=== PATIENT | female | born 1970 | race Hispanic/Latino ===

== ENCOUNTER 2020-03-06 06:54 | Outpatient (NON) | payer OTHER, SELFPAY ==
[2020-03-06 22:32] LABS: SARS-CoV-2 RNA PCR Negative
== END 2020-03-06 06:55 ==
LOC: ANHCOVIDDT 07:04
PROVIDERS: PCP Family Medicine; Visit Provider Physician Assistant Medical
DX: Z20.828 Contact with and (suspected) exposure to other viral communicable diseases (principal); R51.9 Headache, unspecified; R09.81 Nasal congestion
CPT/HCPCS: 87635; C9803; U0003

== ENCOUNTER 2020-08-23 18:15 | Emergency (ER) | payer OTHER, SELFPAY ==
--- NOTE | ~2020-08-23 | XR_ITS ---
XR chest 1V portable DATE: 08/23/2020 18:58 INDICATION: Productive cough, congestion TECHNIQUE: Portable upright AP view on 08/23/2020 at 1855 hours COMPARISON: 07/02/2012 two-view chest FINDINGS: Normal heart size. No hilar or mediastinal enlargement. No pulmonary infiltrate or consolid ation, pleural effusion or pulmonary vascular congestion or pneumothorax. Osteopenia. IMPRESSION: No active cardiopulmonary disease Reviewed, dictated and finalized at location A.
[2020-08-23 18:29] VITALS: BP 157/95; PULSE 102; RESP 20; TEMP 36.8; O2SAT 97
[2020-08-23 19:00] VITALS: O2SAT 98
--- NOTE | 2020-08-23 19:08 | ED.URI ---
HPI - URI/Sore Throat General Chief Complaint: Upper Respiratory Infection Stated Complaint: Congestion,sinus drainage,cough Time Seen by Provider: 08/23/20 18:30 Source: patient Mode of arrival: ambulatory Limitations: no limitations History of Present Illness HPI Narrative: Patient is a 50-year-old female who presents complaining of cough, sinus drainage, congestion and sore throat x3 to 4 days. Patient reports recently [place] Patient reports during trip she was on Augmentin and prednisone for a sinus infection which she completed all medications 08/18/2020. She reports increased sore throat and cough over the past 3 to 4 days. She denies fever. She denies chest pain or shortness of breath. Patient reports she has a history of immune compromise, Covid vaccine x2. Patient is concerned she has Covid because of travel and history of immune compromise, patient is requesting Covid testing.. MD elicited complaint: cough, sore throat and nasal congestion Related Data Home Medications Medication Instructions Recorded Confirmed hydroxychloroquine 200 mg tablet 200 mg PO BID 03/03/19 09/21/19 methotrexate sodium 2.5 mg tablet See Rx Instructions PO WEEKLY 03/03/19 09/21/19 tablet ondansetron HCl 4 mg tablet 4 mg PO Q8H PRN 03/03/19 09/21/19 folic acid 1 mg tablet 1 mg PO DAILY 06/01/19 09/21/19 Allergies Allergy/AdvReac Type Severity Reaction Status Date / Time ketorolac Allergy Unknown Unknown Verified 08/23/20 18:33 Review of Systems Review of Systems: Narrative: CONSTITUTIONAL: Denies fever, chills, or sweats. EYES: Denies visual changes, redness, or discharge. ENT: Reports congestion and sore throat CARDIOVASCULAR: Denies chest pain, palpitations, or edema. RESPIRATORY: Reports cough, denies dyspnea. GASTROINTESTINAL: Denies abdominal pain, nausea, vomiting, or diarrhea. GENITOURINARY: Denies dysuria or hematuria. SKIN: Denies rash or itching. MUSCULOSKELETAL: Denies back pain, joint pain, or myalgia. NEUROLOGIC: Denies headache, numbness, dizziness, or weakness. PSYCHIATRIC: Denies anxiety or depression. [facility]END[facility] S[facility] TO [facility] Past Medical History Medical History H/O Sjogren's disease per patient Hannah's thyroiditis Per patient Surgical History Surgical History H/O adenoidectomy History of orthopedic surgery Hx of cholecystectomy Hx of tonsillectomy Family History Family History Other Asthma Depression Grandparent Alcohol abuse Grandparent Thyroid disorder Social History Social History Smoking status: Never smoker Alcohol intake: current Alcohol use details: Occasional Substance use: never Living arrangements: with family Comments At the time of signature, I have reviewed and agree with nursing past medical, surgical, social, and family history unless otherwise noted. Please see nursing chart for further information. There is no relevant family history pertinent to the presenting complaint. Exam Narrative: Exam Narrative: GENERAL: Well-appearing, well-nourished, and in no acute distress. HEAD: Normocephalic, atraumatic. EYES: EOMI. No redness or drainage. Conjunctiva are normal. ENT: Mucous membranes pink and moist. Nares clear. Positive rhinorrhea. TMs normal bilaterally. Throat mild erythema and edema, no exudate. Uvula midline. NECK: AROM. Supple. No lymphadenopathy. CHEST: No respiratory distress. Mild expiratory wheeze. HEART: Regular rate and rhythm. EXTREMITIES: Normal range of motion. No edema. SKIN: Warm, dry, no rash. NEURO: No focal deficits. Alert and oriented x3. Gait steady. PSYCH: Normal affect. No signs of depression or anxiety. Course Vital Signs Vital signs: Vital Signs Temperature 36.8 C 08/23/20 18:29
[2020-08-23 20:07] VITALS: BP 137/83; PULSE 93; RESP 18; TEMP 37.2; O2SAT 97
[2020-08-24 19:38] LABS: SARS-CoV-2 RNA PCR Negative
== END 2020-08-23 20:10 | disposition home or self-care (01) ==
PROVIDERS: Emergency Provider Nurse Practitioner; PCP Family Medicine
DX: J06.9 Acute upper respiratory infection, unspecified (principal); J20.9 Acute bronchitis, unspecified; Z20.822 Contact with and (suspected) exposure to COVID-19; M35.00 Sjogren syndrome, unspecified; E06.3 Autoimmune thyroiditis
CPT/HCPCS: 71045; 99283; C9803; U0003; U0005

== ENCOUNTER 2021-01-31 09:06 | Outpatient (CLI) | payer OTHER, SELFPAY ==
--- NOTE | 2021-01-31 13:45 | WPDPFTINT ---
PFT Procedure Performed PFT Procedure Performed Spirometry with Pre/Post Bronchodilator Plethysmography (Lung Vol) Diffusing Cap (DLCO) Flow Vol Loop PFT Interpretation Lung volumes were measured with the body plethysmography method. The diminished expiratory reserve volume is due to obesity. The remaining lung volumes are unremarkable. Spirometry showed normal expiratory flow rates and a normal FEV1 to FVC ratio of 82%. Following administration of a bronchodilator there was no significant increase in expiratory flow rates. Lung diffusion capacity is within the normal range. The flow volume loop is unremarkable. Impression: Lung volumes, spirometry, and lung diffusion capacity all within the normal range.
== END 2021-01-31 09:07 | disposition home or self-care (01) ==
LOC: ANHPFT 09:08
PROVIDERS: PCP Family Medicine; Visit Provider Family Medicine
DX: R06.02 Shortness of breath (principal); R05.9 Cough, unspecified; M06.4 Inflammatory polyarthropathy
CPT/HCPCS: 94060; 94726; 94729

== ENCOUNTER 2021-06-28 19:28 | Emergency (ER) | payer OTHER, SELFPAY ==
[2021-06-28 19:32] VITALS: BP 151/91; PULSE 79; RESP 16; TEMP 36.3; O2SAT 99
--- NOTE | 2021-06-28 19:49 | ED.GENADULT ---
HPI - General Adult General Chief complaint: Extremity Problem,Nontraumatic Stated complaint: RED SPOT ON ARM Source: patient Mode of arrival: ambulatory Limitations: no limitations History of Present Illness HPI narrative: Patient presents for evaluation of swelling and redness to the right upper arm since Wednesday of this week. She indicates she had a Shingrix vaccine just prior to symptom onset. Over the past few days, redness has increased. She states the area is tender to palpation. No fever, chills, nausea, vomiting, drainage from the affected area. She is not diabetic. She does not smoke. She outlined the borders this morning and the redness has extended slightly outside the borders since that time. She has autoimmune disease for which she is under the care of rheumatology. She has tried charanjit without much improvement in her symptoms. She took tylenol for generalized body aches following administration of the vaccine. Related Data Home Medications Medication Instructions Recorded Confirmed hydroxychloroquine 200 mg tablet 200 mg PO BID 03/03/19 06/28/21 methotrexate sodium 2.5 mg tablet See Rx Instructions PO WEEKLY 03/03/19 06/28/21 tablet folic acid 1 mg tablet 1 mg PO DAILY 06/01/19 06/28/21 ondansetron HCl 8 mg tablet 8 mg PO Q12H PRN 01/03/21 06/28/21 lifitegrast [Xiidra] 1 drp EACH EYE BID 06/28/21 06/28/21 Allergies Allergy/AdvReac Type Severity Reaction Status Date / Time ketorolac Allergy Unknown Unknown Verified 06/28/21 19:31 Review of Systems Review of Systems: CONSTITUTIONAL: Denies fever, chills, or sweats. EYES: Denies visual changes, redness, or discharge. ENT: Denies rhinorrhea, congestion, sore throat, or otalgia. CARDIOVASCULAR: Denies chest pain, palpitations, or edema. RESPIRATORY: Denies cough or dyspnea. GASTROINTESTINAL: Denies abdominal pain, nausea, vomiting, or diarrhea. GENITOURINARY: Denies dysuria or hematuria. SKIN: Reports redness to right upper arm with associate swelling and pruritis MUSCULOSKELETAL: Reports pain in right upper arm. Denies back pain, joint pain NEUROLOGIC: Denies headache, numbness, dizziness, or weakness. PSYCHIATRIC: Denies anxiety or depression. [facility] Past Medical History Medical History Hannah's thyroiditis Per patient History of autoimmune disease [facility] (current) use of opiate analgesic Surgical History Surgical History H/O adenoidectomy History of orthopedic surgery Hx of cholecystectomy Hx of tonsillectomy Family History Family History Other Asthma Depression Grandparent Alcohol abuse Grandparent Thyroid disorder Social History Social History (Updated 06/28/21 @ 19:53 by CHANDLER Perez, ) Smoking status: Never smoker Alcohol intake: current Alcohol use details: Occasional Substance use: never Living arrangements: with family Gender identity (if verbalized by the patient): Female Spiritual care concerns: No Exam Narrative: GENERAL: Well-appearing, well-nourished, and in no acute distress. HEAD: Normocephalic, atraumatic. EYES: PERRLA and EOMI. ENT: Nares clear, no rhinorrhea or epistaxis. Mucous membranes moist. Oropharynx without tonsillar hypertrophy exudate or other lesions. Bilateral TMs pearly stack nonbulging NECK: Supple. No adenopathy or masses. No carotid bruits or JVD CHEST: Clear to auscultation. No respiratory distress. No wheezes rales or rhonchi HEART: Regular rate and rhythm. No murmur heard. Normal peripheral pulses. ABDOMEN: Soft, nontender, nondistended, normal active bowel sounds. EXTREMITIES: Normal range of motion. No edema. SKIN:Approximately 5x6.5cm area of erythema to right upper arm in annular pattern which is slightly raised and tender. There is associated warmth NEURO: No focal
== END 2021-06-28 19:43 | disposition home or self-care (01) ==
PROVIDERS: Emergency Provider Nurse Practitioner; PCP Family Medicine
DX: T80.90XA Unspecified complication following infusion and therapeutic injection, initial encounter (principal); E06.3 Autoimmune thyroiditis
CPT/HCPCS: 99213; G0463

== ENCOUNTER 2022-01-24 18:29 | Emergency (ER) | payer OTHER, SELFPAY ==
[2022-01-24 18:36] VITALS: BP 121/69; PULSE 86; RESP 20; TEMP 36.2; O2SAT 98
--- NOTE | 2022-01-24 18:54 | ED.GENADULT ---
HPI - General Adult General Chief complaint: Extremity Problem,Nontraumatic Stated complaint: Body Aches Time Seen by Provider: 01/24/22 18:43 Source: patient Mode of arrival: ambulatory Limitations: no limitations History of Present Illness HPI narrative: Patient presents today complaining of joint aches, primarily in the right shoulder, right elbow, and left knee. 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 States her joints have been hurting for, ?a while, but worse since last night. 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 Symptoms increase with movement. She has been taking Advil and Tylenol with minimal relief. Denies fever or recent illness. Related Data Home Medications Medication Instructions Recorded Confirmed hydroxychloroquine 200 mg tablet 200 mg PO BID 03/03/19 01/24/22 (Plaquenil) methotrexate sodium 2.5 mg tablet See Rx Instructions PO WEEKLY 03/03/19 01/24/22 folic acid 1 mg tablet 1 mg PO DAILY 06/01/19 01/24/22 lifitegrast 5 % eye drops in a 1 drp EACH EYE BID 06/28/21 01/24/22 dropperette (Xiidra) Allergies Allergy/AdvReac Type Severity Reaction Status Date / Time ketorolac AdvReac Severe Swelling Verified 01/24/22 18:52 of Lip/Tongue/Throat Review of Systems Review of Systems: CONSTITUTIONAL: Denies body aches, fever, chills, or sweats. EYES: Denies visual changes, redness, or discharge. ENT: Denies rhinorrhea, congestion, sore throat, or otalgia. CARDIOVASCULAR: Denies chest pain, palpitations, or edema. RESPIRATORY: Denies cough or dyspnea. GASTROINTESTINAL: Denies abdominal pain, nausea, vomiting, or diarrhea. GENITOURINARY: Denies dysuria or hematuria. SKIN: Denies rash, itching, or wounds. MUSCULOSKELETAL: Denies back pain, or myalgia.+ joint pains. Denies joint swelling, redness, or warmth NEUROLOGIC: Denies headache, numbness, tingling, or weakness. PSYCH: Denies depression or anxiety. [facility] Past Medical History Medical History Hannah's thyroiditis Per patient History of autoimmune disease [facility] (current) use of opiate analgesic Surgical History Surgical History H/O adenoidectomy History of orthopedic surgery Hx of cholecystectomy Hx of tonsillectomy Family History Family History Other Asthma Depression Grandparent Alcohol abuse Grandparent Thyroid disorder Other Heart disease Social History Social History Smoking status: Never smoker Alcohol intake: current Alcohol use details: Occasional Substance use: never Substance use type: does not use Additional occupation/education comments: stay at home Gender identity (if verbalized by the patient): Female Sexual Orientation (if Verbalized by the Patient): Straight or Heterosexual Spiritual care concerns: No Comments At time of signature, I have reviewed and agree with nursing past medical, surgical, social and family history unless otherwise noted. Please see nursing chart for further information. There is no relevant family history pertinent to the presenting complaint Exam Narrative: GENERAL: Well-appearing, well-nourished, and in [id number] pain distress, especially with movement. HEAD: Normocephalic, atraumatic. EYES: EOMI. No redness or drainage. Conjunctivae normal. ENT: Mucous membranes pink and moist. NECK: Normal AROM. CHEST: No respiratory distress. EXTREMITIES: Joint tenderness over the affected joints. No obvious edema, erythema. Pain with range of motion. SKIN: Warm, dry, no rash. Capillary refill normal. Normal skin turgor. NEURO: No focal deficits. Alert and oriented x3.
== END 2022-01-24 19:01 | disposition home or self-care (01) ==
PROVIDERS: Emergency Provider Nurse Practitioner; PCP Family Medicine
DX: M25.50 Pain in unspecified joint (principal); E06.3 Autoimmune thyroiditis; M13.80 Other specified arthritis, unspecified site
CPT/HCPCS: 99213; G0463

== ENCOUNTER 2022-07-14 21:43 | Outpatient (NON) | payer OTHER, SELFPAY | END 2022-07-14 21:44 | disposition home or self-care (01) | LOC: ANHLAB 21:44 | PROVIDERS: PCP Family Medicine; Visit Provider Nurse Practitioner | DX: J02.9 Acute pharyngitis, unspecified (principal) | CPT/HCPCS: 87070 ==

== ENCOUNTER 2022-07-16 08:37 | Outpatient (CLI) | payer OTHER, SELFPAY | END 2022-07-16 08:38 | disposition home or self-care (01) | LOC: ANHGOSHLAB 08:39 | PROVIDERS: PCP Family Medicine; Visit Provider Nurse Practitioner | DX: J02.9 Acute pharyngitis, unspecified (principal) | CPT/HCPCS: 87070 ==

== ENCOUNTER → 2022-10-23 08:50 | Outpatient (CLI) | payer OTHER, SELFPAY ==
--- NOTE | ~2022-10-23 | MR_ITS ---
EXAMINATION: MR brain/brain stem wo/w con DATE: 10/23/2022 09:33 INDICATION: Progressive ataxia and falls. TECHNIQUE: Magnetic resonance imaging (MRI) of the brain and brainstem was performed without and with 20 mL MultiHance intravenous contrast. COMPARISON: Neck CT 12/12/2015 FINDINGS: There is a chronic 2.8 x 1.4 x 1.1 cm mass containing fat in right parotid gland, likely be nign. There is no intracranial hemorrhage, acute infarction, or abnormal intracranial mass lesion. Th e ventricles are normal in size. The paranasal sinuses are clear. The orbits are normal. The mastoid air cells are normal. IMPRESSION: 1. Normal brain. Reviewed, dictated and finalized at location B. IMPRESSION: 1. Normal brain.
== END ==
PROVIDERS: PCP Family Medicine; Visit Provider Family Medicine
DX: R27.0 Ataxia, unspecified (principal)
CPT/HCPCS: 70553; A9577

== ENCOUNTER 2023-04-16 19:17 | Emergency (ER) | payer OTHER, SELFPAY ==
--- NOTE | ~2023-04-16 | XR_ITS ---
EXAMINATION: XR foot RT min 3V DATE: 04/16/2023 19:45 INDICATION: Right foot injury and pain. TECHNIQUE: 4 views of right foot were obtained. COMPARISON: None. FINDINGS: Bone alignment is normal. No fracture. There is mild osteoarthritis of first metatarsophala ngeal joint and many of the interphalangeal joints. There is an enthesophyte at plantar aspect of linn caneal tuberosity. IMPRESSION: 1. Mild polyarticular osteoarthritis. Reviewed, dictated and finalized at location E. GRINDER
[2023-04-16 19:28] VITALS: BP 134/62; PULSE 70; RESP 16; TEMP 36.4; O2SAT 100
--- NOTE | 2023-04-16 19:35 | ED.LOWEXIN ---
HPI - Extremity Injury (Lower) General Chief Complaint: Extremity Injury, Lower Stated Complaint: Injured Foot Time Seen by Provider: 04/16/23 19:28 Source: patient and RN notes reviewed Mode of arrival: ambulatory Limitations: no limitations History of Present Illness HPI Narrative: Patient presents today complaining of pain to the right foot. States she may have stepped on her foot incorrectly 2 days ago causing an injury. States pain is worsened over the past 1-1.5 hours. She reports some tingling to her toes. Currently rates her pain 4/10 at rest, which increases with weight-bearing. She has been taking Celebrex without much relief. Related Data Home Medications Medication Instructions Recorded Confirmed hydroxychloroquine 200 mg tablet 200 mg PO BID 03/03/19 04/16/23 (Plaquenil) lifitegrast 5 % eye drops in a 1 drp EACH EYE BID 06/28/21 04/16/23 dropperette (Xiidra) leflunomide 20 mg tablet 20 mg PO DAILY 10/14/22 04/16/23 Allergies Allergy/AdvReac Type Severity Reaction Status Date / Time ketorolac AdvReac Severe Swelling Verified 04/16/23 19:24 of Lip/Tongue/Throat Review of Systems Review of Systems: CONSTITUTIONAL: Denies body aches, fever, chills, or sweats. EYES: Denies visual changes, redness, or discharge. ENT: Denies rhinorrhea, congestion, sore throat, or otalgia. CARDIOVASCULAR: Denies chest pain, palpitations, or edema. RESPIRATORY: Denies cough or dyspnea. GASTROINTESTINAL: Denies abdominal pain, nausea, vomiting, or diarrhea. GENITOURINARY: Denies dysuria or hematuria. SKIN: Denies rash, itching, or wounds. MUSCULOSKELETAL: Denies back pain, or myalgia. +Right foot pain NEUROLOGIC: Denies headache, numbness, or weakness.+ right foot tingling PSYCH: Denies depression or anxiety. [facility] Past Medical History Medical History Hannah's thyroiditis Per patient History of autoimmune disease [employer] (current) use of opiate analgesic Surgical History Surgical History H/O adenoidectomy History of orthopedic surgery Hx of cholecystectomy Hx of tonsillectomy Family History Family History Other Asthma Depression Grandparent Alcohol abuse Grandparent Thyroid disorder Other Heart disease Social History Social History Smoking status: Never smoker Alcohol intake: never Substance use: never Substance use type: does not use Do You Feel Safe in your Home?: Yes Lack of Transportation: No Lack of Food: Never True Current Housing: I Have Housing Concerned About Future Housing: No Difficulty Paying Gas/Electric Bills: No Difficulty Paying for Meds: No Currently Unemployed: No Education: Master's Degree or Higher Difficulty w/ Childcare or Family Care: No Living arrangements: with family Occupation/Education: occupation Additional occupation/education comments: stay at home Gender identity (if verbalized by the patient): Female Sexual Orientation (if Verbalized by the Patient): Straight or Heterosexual Spiritual care concerns: No Comments At time of signature, I have reviewed and agree with nursing past medical, surgical, social and family history unless otherwise noted. Please see nursing chart for further information. There is no relevant family history pertinent to the presenting complaint Exam Narrative: GENERAL: Well-appearing, well-nourished, and in no acute distress. HEAD: Normocephalic, atraumatic. EYES: EOMI. No redness or drainage. Conjunctivae normal. ENT: Mucous membranes pink and moist. NECK: Normal AROM. CHEST: No respiratory distress. EXTREMITIES: Right foot: Tenderness to the midfoot along the plantar aspect, less so along the dorsum. Patient also report
== END 2023-04-16 20:01 | disposition home or self-care (01) ==
PROVIDERS: Emergency Provider Nurse Practitioner; PCP Family Medicine
DX: S96.911A Strain of unspecified muscle and tendon at ankle and foot level, right foot, initial encounter (principal); X58.XXXA Exposure to other specified factors, initial encounter; E06.3 Autoimmune thyroiditis; M35.9 Systemic involvement of connective tissue, unspecified
CPT/HCPCS: 73630; 99213; G0463

== ENCOUNTER 2023-06-05 11:34 | Emergency (ER) | payer OTHER, SELFPAY ==
[2023-06-05 11:54] VITALS: BP 113/86; PULSE 76; RESP 16; TEMP 36.3; O2SAT 100
[2023-06-05 11:55] VITALS: BP 113/86; PULSE 76; RESP 16; TEMP 36.3; O2SAT 100
--- NOTE | 2023-06-05 12:11 | ED.URI ---
HPI - URI/Sore Throat General Chief Complaint: Upper Respiratory Infection Stated Complaint: Respiratory issues Time Seen by Provider: 06/05/23 12:11 Source: patient Mode of arrival: ambulatory Limitations: no limitations History of Present Illness HPI Narrative: 52 yo F presents with c/o cough, sinus congestion, PND, chest congestion for at least 2 wks. Taking OTC cough medications without relief. Reports some tightness and SOB with coughing fits. AFebrile. All systems reviewed and negative except as noted above. Related Data Home Medications Medication Instructions Recorded Confirmed hydroxychloroquine 200 mg tablet 200 mg PO BID 03/03/19 06/05/23 (Plaquenil) lifitegrast 5 % eye drops in a 1 drp EACH EYE BID 06/28/21 06/05/23 dropperette (Xiidra) leflunomide 20 mg tablet 20 mg PO DAILY 10/14/22 06/05/23 Allergies Allergy/AdvReac Type Severity Reaction Status Date / Time ketorolac AdvReac Severe Swelling Verified 06/05/23 11:53 of Lip/Tongue/Throat Review of Systems Review of Systems: CONSTITUTIONAL: Denies fever, chills, or sweats. Reports fatigue. EYES: Denies visual changes, redness, or discharge. ENT: Reports rhinorrhea, congestion, sore throat. Denies otalgia. CARDIOVASCULAR: Denies chest pain, palpitations, or edema. RESPIRATORY: Reports cough and dyspnea with coughing. GASTROINTESTINAL: Denies abdominal pain, nausea, vomiting, or diarrhea. GENITOURINARY: Denies dysuria or hematuria. SKIN: Denies rash or itching. MUSCULOSKELETAL: Denies back pain, joint pain, or myalgia. NEUROLOGIC: Denies headache, numbness, or weakness. PSYCHIATRIC: Denies anxiety or depression. All other systems reviewed are negative, except as documented in HPI. [facility] Past Medical History Medical History Hannah's thyroiditis Per patient History of autoimmune disease senior living (current) use of opiate analgesic Surgical History Surgical History H/O adenoidectomy History of orthopedic surgery Hx of cholecystectomy Hx of tonsillectomy Family History Family History Other Asthma Depression Grandparent Alcohol abuse Grandparent Thyroid disorder Other Heart disease Social History Social History Smoking status: Never smoker Alcohol intake: never Substance use: never Substance use type: does not use Do You Feel Safe in your Home?: Yes Lack of Transportation: No Lack of Food: Never True Current Housing: I Have Housing Concerned About Future Housing: No Difficulty Paying Gas/Electric Bills: No Difficulty Paying for Meds: No Currently Unemployed: No Education: Master's Degree or Higher Difficulty w/ Childcare or Family Care: No Living arrangements: with family Occupation/Education: occupation Additional occupation/education comments: stay at home Gender identity (if verbalized by the patient): Female Sexual Orientation (if Verbalized by the Patient): Straight or Heterosexual Spiritual care concerns: No Comments At time of signature, agree with nursing past medical, surgical, social and family history. There is no relevant family history pertinent to the presenting complaint. Exam Narrative: GENERAL: This is a well-nourished, well-developed patient, in no apparent distress. HEAD: normocephalic, atraumatic. EYES: PERRL. Sclera clear/white. Vision is grossly intact. EARS: External ears normal, auditory canals clear and without drainage, TMs normal without perforation. Hearing grossly intact. NOSE: External nose normal with no obvious nasal discharge, nares without redness, no rhinorrhea. THROAT: Mucous membranes moist, posterior pharynx clear. NECK: Neck supple, non-tender without lymphadenopathy, masses or thyromeg
== END 2023-06-05 12:19 | disposition home or self-care (01) ==
PROVIDERS: Emergency Provider Nurse Practitioner Family; PCP Family Medicine
DX: J06.9 Acute upper respiratory infection, unspecified (principal); Z79.899 Other long term (current) drug therapy
CPT/HCPCS: 99213; G0463

== ENCOUNTER 2023-06-25 19:17 | Emergency (ER) | payer OTHER, SELFPAY ==
[2023-06-25 19:25] VITALS: BP 103/58; PULSE 70; RESP 18; TEMP 36.2; O2SAT 99
[2023-06-25 19:27] VITALS: BP 103/58; PULSE 70; RESP 18; TEMP 36.2; O2SAT 99
--- NOTE | 2023-06-25 20:32 | ED.URI ---
HPI - URI/Sore Throat General Chief Complaint: Upper Respiratory Infection Stated Complaint: Trouble Breathing Time Seen by Provider: 06/25/23 19:31 Source: patient and RN notes reviewed Mode of arrival: ambulatory Limitations: no limitations History of Present Illness HPI Narrative: Patient presents today stating, ?I feel like I can not take a deep breath. ? Symptoms began today. She denies cough, shortness of breath, chest pain, wheezing, fever. She was seen at [facility] on 06/06/2023, diagnosed with a URI and given prescriptions for doxycycline, prednisone, and an albuterol inhaler. She has not tried the albuterol inhaler today for her symptoms. She does take Singulair and Zyrtec daily for her allergies. States she wants to make sure, ?there is no fluid in my lungs. ? Related Data Home Medications Medication Instructions Recorded Confirmed hydroxychloroquine 200 mg tablet 200 mg PO BID 03/03/19 06/25/23 (Plaquenil) lifitegrast 5 % eye drops in a 1 drp EACH EYE BID 06/28/21 06/25/23 dropperette (Xiidra) leflunomide 20 mg tablet 20 mg PO DAILY 10/14/22 06/25/23 albuterol sulfate 90 mcg/actuation 2 puff inhalation PRN PRN 06/25/23 06/25/23 aerosol inhaler Shortness Of Breath Or Wheezing celecoxib 200 mg capsule 200 mg PO DAILY 06/25/23 06/25/23 montelukast 10 mg tablet 10 mg PO HS 06/25/23 06/25/23 Allergies Allergy/AdvReac Type Severity Reaction Status Date / Time ketorolac AdvReac Severe Swelling Verified 06/25/23 19:24 of Lip/Tongue/Throat Review of Systems Review of Systems: CONSTITUTIONAL: Denies body aches, fever, chills, or sweats. EYES: Denies visual changes, redness, or discharge. ENT: Denies rhinorrhea, congestion, sore throat, or otalgia. CARDIOVASCULAR: Denies chest pain, palpitations, or edema. RESPIRATORY: Denies cough or dyspnea. +difficulty taking deep breath GASTROINTESTINAL: Denies abdominal pain, nausea, vomiting, or diarrhea. GENITOURINARY: Denies dysuria or hematuria. SKIN: Denies rash, itching, or wounds. MUSCULOSKELETAL: Denies back pain, joint pain, or myalgia. NEUROLOGIC: Denies headache, numbness, tingling, or weakness. PSYCH: Denies depression or anxiety. 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 Surgical History Surgical History H/O adenoidectomy History of orthopedic surgery Hx of cholecystectomy Hx of tonsillectomy Family History Family History Other Asthma Depression Grandparent Alcohol abuse Grandparent Thyroid disorder Other Heart disease Social History Social History Smoking status: Never smoker Alcohol intake: never Substance use: never Substance use type: does not use Do You Feel Safe in your Home?: Yes Lack of Transportation: No Lack of Food: Never True Current Housing: I Have Housing Concerned About Future Housing: No Difficulty Paying Gas/Electric Bills: No Difficulty Paying for Meds: No Currently Unemployed: No Education: Master's Degree or Higher Difficulty w/ Childcare or Family Care: No Living arrangements: with family Occupation/Education: occupation Additional occupation/education comments: stay at home Gender identity (if verbalized by the patient): Female Sexual Orientation (if Verbalized by the Patient): Straight or Heterosexual Spiritual care concerns: No Comments At time of signature, I have reviewed and agree with nursing past medical, surgical, social and family history unless otherwise noted. Please see nursing chart for further information. There is no relevant family history pertinent to the presenting complaint Ex
== END 2023-06-25 19:46 | disposition home or self-care (01) ==
PROVIDERS: Emergency Provider Nurse Practitioner; PCP Family Medicine
DX: J30.2 Other seasonal allergic rhinitis (principal); E06.3 Autoimmune thyroiditis
CPT/HCPCS: 99213; G0463

== ENCOUNTER 2023-10-01 13:48 | Emergency (ER) | payer OTHER, SELFPAY ==
[2023-10-01 14:06] VITALS: BP 128/85; PULSE 70; RESP 16; TEMP 36.8; O2SAT 99
--- NOTE | 2023-10-01 14:11 | ED.URI ---
HPI - URI/Sore Throat General Chief Complaint: Upper Respiratory Infection Stated Complaint: Shortness Of Breath/Chest Tightness Source: patient Mode of arrival: ambulatory Limitations: no limitations History of Present Illness HPI Narrative: 53 y/o female presented for c/o 'chest tightness' onset 99, and shortness of breath when walking up her stairs today. Endorses the chest tightness is a dull ache to the center of the sternum, worsens with deep breaths. Denies cough, palpitations, dizziness, nausea, vomiting, fever or lethargy. Has not taken anything for symptoms. Related Data Home Medications Medication Instructions Recorded Confirmed hydroxychloroquine 200 mg tablet 200 mg PO BID 03/03/19 10/01/23 (Plaquenil) lifitegrast 5 % eye drops in a 1 drp EACH EYE BID 06/28/21 10/01/23 dropperette (Xiidra) leflunomide 20 mg tablet 20 mg PO DAILY 10/14/22 10/01/23 celecoxib 200 mg capsule 200 mg PO DAILY 06/25/23 10/01/23 montelukast 10 mg tablet 10 mg PO HS 06/25/23 10/01/23 Allergies Allergy/AdvReac Type Severity Reaction Status Date / Time ketorolac AdvReac Severe Swelling Verified 10/01/23 14:13 of Lip/Tongue/Throat Review of Systems Review of Systems: CONSTITUTIONAL: Denies body aches, fever, chills, or sweats. EYES: Denies visual changes, redness, or discharge. ENT: Denies rhinorrhea, congestion, sore throat, or otalgia. CARDIOVASCULAR: reports mid chest pain, Denies palpitations, or edema. RESPIRATORY: Denies cough or dyspnea. GASTROINTESTINAL: Denies abdominal pain, nausea, vomiting, or diarrhea. GENITOURINARY: Denies dysuria or hematuria. SKIN: Denies rash, itching, or wounds. MUSCULOSKELETAL: Denies back pain, joint pain, or myalgia. NEUROLOGIC: Denies headache, numbness, tingling, or weakness. PSYCH: Denies anxiety. 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 Surgical History Surgical History H/O adenoidectomy History of orthopedic surgery Hx of cholecystectomy Hx of tonsillectomy Family History Family History Other Asthma Depression Grandparent Alcohol abuse Grandparent Thyroid disorder Other Heart disease Social History Social History Smoking status: Never smoker Alcohol intake: never Substance use: never Substance use type: does not use Do You Feel Safe in your Home?: Yes Lack of Transportation: No Lack of Food: Never True Current Housing: I Have Housing Concerned About Future Housing: No Difficulty Paying Gas/Electric Bills: No Difficulty Paying for Meds: No Currently Unemployed: No Education: Master's Degree or Higher Difficulty w/ Childcare or Family Care: No Living arrangements: with family Occupation/Education: occupation Additional occupation/education comments: stay at home Gender identity (if verbalized by the patient): Female Sexual Orientation (if Verbalized by the Patient): Straight or Heterosexual Spiritual care concerns: No Comments At time of signature, I have reviewed and agree with nursing past medical, surgical, social and family history unless otherwise noted. Please see nursing chart for further information. There is no relevant family history pertinent to the presenting complaint Exam Narrative: GENERAL: Well-appearing, and in no acute distress. EYES: EOMI. No redness or drainage. Conjunctivae normal. ENT: Mucous membranes pink and moist. No rhinorrhea. TMs normal bilaterally. Throat normal. Uvula midline. NECK: Normal AROM. Supple. No lymphadenopathy. CHEST: No respiratory distress
--- NOTE | 2023-10-01 14:30 | ECG_ITS ---
Test Date: 2023-10-01 14:03:59 Measurements Intervals [place] Rate: 63 P: 41 KS: 189 QRS: 19 QRSD: 101 T: 16 QT: 394 QTc: 404 Interpretive Statements SINUS RHYTHM NORMAL ECG No previous ECG available for comparison Electronically Signed On 10-01-2023 15:21:26 CDT by Max Ching D.O.
== END 2023-10-01 14:25 | disposition home or self-care (01) ==
PROVIDERS: Emergency Provider Nurse Practitioner Family; PCP Family Medicine
DX: R07.1 Chest pain on breathing (principal); E06.3 Autoimmune thyroiditis; M35.9 Systemic involvement of connective tissue, unspecified
CPT/HCPCS: 93005; 99213; G0463

== ENCOUNTER 2024-03-25 08:54 | Emergency (ER) | payer OTHER, SELFPAY ==
--- NOTE | 2024-03-25 09:00 | ED.URI ---
HPI - URI/Sore Throat General Chief Complaint: Upper Respiratory Infection Stated Complaint: sinus infection / RT Ear Pain Time Seen by Provider: 03/25/24 09:02 Source: patient Mode of arrival: ambulatory Limitations: no limitations History of Present Illness HPI Narrative: Monica is a 53-year-old female patient presenting to the clinic today with complaints of possible sinus infection/ear infection. She reports symptoms have been going on for 1.5 weeks. She is blowing out yellow nasal drainage with tinge of blood. Has sinus pressure. Also reporting right ear pain that started over the last 1-2 days. No known fevers, chills, body aches. Denies any chest pain or shortness of breath. MD elicited complaint: rhinorrhea, nasal congestion, sinus pain and other (Ear pain) Related Data Home Medications ?Medication ?Instructions ?Recorded ?Confirmed ?Last Taken ?Type hydroxychloroquine 200 mg tablet 200 mg PO BID 03/03/19 02/04/24 Unknown History (Plaquenil) lifitegrast 5 % eye drops in a 1 drp EACH EYE BID 06/28/21 02/04/24 Unknown History dropperette (Xiidra) leflunomide 20 mg tablet 20 mg PO DAILY 10/14/22 02/04/24 Unknown History montelukast 10 mg tablet 10 mg PO HS 06/25/23 02/04/24 Unknown History Allergies Allergy/AdvReac Type Severity Reaction Status Date / Time ketorolac Allergy Severe Swelling Verified 03/25/24 09:04 of Lip/Tongue/Throat Review of Systems Review of Systems: Pertinent positives per HPI. Patient denies any fever, chills, rash, visual changes, dizziness, cough, shortness of breath, chest pain, palpitations, nausea, vomiting, diarrhea, constipation, abdominal pain, or any urinary issues. [facility] Past Medical History Medical History History of autoimmune disease Hannah's thyroiditis Per patient [facility] (current) use of opiate analgesic Surgical History Surgical History History of orthopedic surgery Hx of cholecystectomy Hx of tonsillectomy H/O adenoidectomy Family History Family History Other Asthma Depression Grandparent Alcohol abuse Grandparent Thyroid disorder Other Heart disease Social History Social History Smoking status: Never smoker Alcohol intake: never Substance use: never Substance use type: does not use Do You Feel Safe in your Home?: Yes Lack of Transportation: No Lack of Food: Never True Current Housing: I Have Housing Concerned About Future Housing: No Difficulty Paying Gas/Electric Bills: No Difficulty Paying for Meds: No Currently Unemployed: No Education: Master's Degree or Higher Difficulty w/ Childcare or Family Care: No Living arrangements: with family Occupation/Education: occupation Additional occupation/education comments: stay at home Gender identity (if verbalized by the patient): Female Sexual Orientation (if Verbalized by the Patient): Straight or Heterosexual Spiritual care concerns: No Comments At the time of my signature, I reviewed and agree with the nursing past medical, surgical, social, and family history. There is no relevant family history pertinent to the patient complaint. Exam Narrative: General: Well-developed, morbidly obese, in no apparent distress Head: Normocephalic, atraumatic Eyes: Pupils equally round and reactive to light bilaterally, EOM intact, sclera and conjunctive clear, no discharge, lids normal Ears: Left TMs intact and red, right TM intact, bulging, red, ear canals clear, no drainage, grossly hearing normal. Nose: Nares patent, yellow nasal discharge, moderate inflammation, maxillary sinus tenderness. Mouth: Oral pharynx without lesions or masses, good dentition, MMM. Neck: Supple, trachea midline, no enlargement of anterior or posterior cervical nodes, no thyroid masses or goiter palpable. Cardio: Regular rate and rhythm, s1 and s2 normal, no murmur appreciated. Resp: Clear to auscultation bilaterally, no rhonchi, rales, wheezing or rubs Course Course Emergency Course: Portions of this record may have been created with voice recognition software. Level of Care: Express Care Visit Vital Signs Vital signs: Vital signs reviewed MDM - URI/Sore Throat MDM Narrative Medical decision making narrative: At the time of visit patient is resting comfortably on the exam table. Patient appears to be nontoxic. Plan: I suspect patient has right otitis media and acute bacterial rhinosinusitis. Prescription for Augmentin and prednisone was sent to the pharmacy. Supportive measures were discussed with the patient and they voiced understanding discharge instructions and agrees to treatment plan. Return precautions reviewed Differential Diagnosis Differential diagnosis: Likely upper respiratory infection, otitis media, sinusitis, viral infection, bronchitis, influenza, pharyngitis and other (Covid) Discharge Plan Discharge Clinical Impression: Acute bacterial rhinosinusitis, Acute right otitis media Patient Disposition: Home, Self-Care Condition: Stable Instructions: Antibiotic Form, Ear Infection (ED), Rhinosinusitis (ED) Additional Instructions: Take prescription medications only as prescribed-prednisone and Augmentin Increase fluids and stay well hydrated Tylenol/motrin for pain/fever Flonase and OTC antihistamines as directed Vicks vapor rub to open sinuses Sinus rinses for congestion Cepacol spray, cough drops, throat lozenges, warm tea with honey/lemon, gargle salt water to soothe throat BRAT diet for diarrhea Clear liquids x 24 hours then advance as tolerated for nausea/vomiting Go to the ED if you develop a worsening in your condition- high fever not controlled by Tylenol or Motrin, dehydration, weakness, lethargy, shortness of breath, or chest pain. Follow up with your PCP in 3-5 days if symptoms persist. Patient Language: Palauan Prescriptions: New prednisone 20 mg tablet 40 mg PO DAILY 5 Days Qty: 10 0RF amoxicillin-pot clavulanate 875-125 mg tablet 1 tablet PO Q12H 10 Days Qty: 20 0RF No Action montelukast 10 mg tablet 10 mg PO HS Xiidra 5 % dropperette 1 drp EACH EYE BID clonidine HCl 0.2 mg tablet 0.2 mg PO Q12H Qty: 180 3RF ondansetron HCl 4 mg tablet 4 mg PO Q6H PRN (Reason: nausea and vomiting) Qty: 30 0RF hydroxychloroquine [Plaquenil] 200 mg tablet 200 mg PO BID leflunomide 20 mg tablet 20 mg PO DAILY levothyroxine [Synthroid] 175 mcg tablet 175 mcg PO DAILY Qty: 90 3RF trazodone 50 mg tablet 50 mg PO DAILY PRN (Reason: insomnia) Qty: 90 3RF celecoxib 200 mg capsule 200 mg PO DAILY Qty: 90 1RF Follow-up/Referrals: Kevin Bowles MD [Primary Care Provider] - Time of Disposition: 09:12 Quality NIHSS Nursing Documentation ED NIHSS nursing documentation: reviewed/agree
[2024-03-25 09:04] VITALS: BP 123/62; PULSE 80; RESP 18; TEMP 36.9; O2SAT 100
--- OUTSIDE RECORDS SUMMARY | 2024-04-01 11:13 | XMS_ITS | Encounter Summary ---
Author Organization [facility] Address [address] [place] [address]. [place], [place] [id number] [place] [id number] Care Team Providers Care Portrait Artist Name Role Phone Kevin Bowles MD Primary Care Provider [phone] Encounter Details Date Type Department Care Team (Latest Contact Info) Description 01/07/2018 Abstract [facility] , Generic ConversionMD Social History Tobacco Use Types Packs/Day Years Used Date Smoking Tobacco: Never Smokeless Tobacco: Never Alcohol Use Standard Drinks/Week Comments No 0 (1 standard drink = 0.6 oz pur e alcohol) AUDIT-C Answer Date Recorded Frequency of Alcohol Consumption Never 01/11/2018 Average Number of Drinks Not on file 018 Frequency of Binge Drinking Not on file 12/21 Comments No Sex and Gender Information Value Date Recorded Sex Assigned at Not on file Legal Sex Female 9:36 PM CDT Gender Identity Not on file Sexual Orientation Not on file documented as of this encounter Progress Notes * Generic Conversion MD Lian - 01/07/2018 2:14 PM CDT Message Recorded as Task Date: 12/23/2017 10:47 AM, Created By: Ayah Kat Task Name: Informational Assigned To: [facility] Nurse Team Regarding Patient: Monica Buckner, Status: In Progress Comment: Ayah Kat - 23 Dec 2017 10:47 AM TASK CREATED sent information over to Marilee at [facility] to schedule thyroid biopsy no prior auth needed Ayah Kat - 23 Dec 2017 10:47 AM TASK IN PROGRESS Kori Matthews - 27 Dec 2017 10:35 AM TASK EDITED [facility] said they need the actual film for them to look at Brandee Katn 27 Dec 2017 10:58 AM TASK EDITED tried to call pt no answer Brandee Katn 27 Dec 2017 4:12 PM TASK EDITED called pt she stated she would get copy of cd and take it to [facility] radiology Brandee Katn 31 Dec 2017 11:35 AM TASK EDITED called pt again and left detailed message when spoke last time couldn't hear pt very well just making sure she knew she needs to take the thyroid US disc to [facility] radiology dept for them to view before can schedule the biopsy if any questions call the office back Brandee Katn 07 Jan 2018 2:14 PM TASK EDITED pt scheduled for jan 11 Signatures Electronically signed by : Ayah Kat, L.P.N.; Jan 07 2018 2:14PM 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
--- OUTSIDE RECORDS SUMMARY | 2024-04-01 11:13 | XMS_ITS | Encounter Summary ---
Author Organization [facility] Address [address] [place] [address]. [place], [place] [id number] [place] [id number] Care Team Providers Care Academic Program Specialist Name Role Phone Kevin Bowles MD Primary Care Provider [phone]- [phone] Reason for Referral * Imaging (Routine) - Closed Specialty Diagnoses / Procedures Referred By Contac t Referred To Contact RADIOLOGY Diagnoses Nontoxic goiter, unspecified Procedures US THYROID Larry Ann PA [address] [place] [address] [address] [place] [id number] Phone: tel: fax: Referral ID Status Reason Start Date Expiration Date Visits Re quested Visits Authorized [id number] Closed 04/29/2022 05/30/2023 1 1 RNET SYSTEMS ADMINISTRATOR Reason for Visit * Imaging (Routine) - Closed Specialty Diagnoses / Procedures Referred By Contac t Referred To Contact RADIOLOGY Diagnoses Nontoxic goiter, unspecified Procedures US THYROID Larry Ann PA [address] [place] [address] [address] [place] [address] Phone: tel: fax: Referral ID Status Reason Start Date Expiration Date Visits Re quested Visits Authorized [id number] Closed 04/29/2022 05/30/2023 1 1 Encounter Details Date Type Department Care Team (Late st Contact Info) Description 05/28/2022 10:14 AM INTERNET SYSTEMS ADMINISTRATOR - 05/28/2022 11:59 PM INTERNET SYSTEMS ADMINISTRATOR Hospital Encounter [facility] [address] Larry Ann PA [address] [facility] [address] [place] [address] Discharge Disposition: Home or Self Care (Routine Discharge) Social History Tobacco Use Types Packs/Day Years [...] on file Sexual Orientation Not on file COVID-19 Exposure Response Date Recorded In the last 10 days, have yo u been in contact with someone who was confirmed or suspected to have Coronavirus/COVID-19? No / Unsure 05/28/2022 10:13 AM INTERNET SYSTEMS ADMINISTRATOR documented as of this encounter Medications at Time of Discharge acetaminophen (TYLENOL) 500 MG tablet Take 1 tablet by mouth. cloNIDine 0.2 MG tablet Take 1 tablet by mouth. 04/08/2017 diphenhydrAMINE (BENADRYL) 25 MG capsule folic acid 1 MG tablet Take 1 mg by mouth daily. 05/31/2018 hydroxychloroquin e 200 MG tablet Take 1 tablet by mouth 2 (two) times daily. 11/12/2016 ibuprofen (ADVIL) 200 MG tablet Take 1 tablet by mouth. lifitegrast (XIIDRA) 5 % ophthalmic solution methotrexate 2.5 MG tablet TAKE 6 TABLETS BY MOUTH ONCE WEEKLY 04/25/2018 ondansetron 4 MG tablet Once a week 06/22/2018 pseudoephedrine (SUDAFED 12 HOUR) 120 MG 12 hr tablet sulfaSALAzine 500 MG delayed release tablet Take 3 tablets by mouth 2 (two) times daily. 05/28/2017 trazodone 50 MG tablet Take 50 mg by mouth as needed. vitamin D2, ergocalciferol, [address]889 UNITS capsule Take 1 capsule by mouth once a week. 12/14/2016 documented as of this encounter Plan of Treatment Not on file documented as of this encounter Procedures Procedure Name Priority Date/Time Associated Diagnosis Comments US THYROID Routine 05/28/2022 11:27 AM INTERNET SYSTEMS ADMINISTRATOR Nontoxic goiter, unspecified documented in this encounter Results * US THYROID (05/28/2022 11:27 AM INTERNET SYSTEMS ADMINISTRATOR) Anatomical Region Laterality Modality Neck Ultrasound 05/29/2022 10:4 7 PM INTERNET SYSTEMS ADMINISTRATOR Impressions 05/29/2022 11:02 PM INTERNET SYSTEMS ADMINISTRATOR IMPRESSION: ===== 1. ??Bilateral thyroid nodules are likely not significant changed from prior study when allowing for different techniques in measurement and differing visibility of the nodule boundaries between techniques and equipment utilized. ??Continued annual surveillance recommended. 2. ??Diffuse hyperemia throughout the gland suggesting low-level thyroiditis of uncertain etiology. ??Correlation with thyroid laboratory recommended. Referred By: LARRY ANN Interpreted By: Mike Cruz MD, 05/29/2022 10:47 PM Narrative 05/29/2022 11:02 PM INTERNET SYSTEMS ADMINISTRATOR EXAMINATION: Thyroid ultrasound EXAM DATE/TIME: 05/28/2022 10:49 AM REASON FOR EXAM: ??Nontoxic goiter, unspecified ?? Swelling in the neck for one month. ??History of bilateral benign biopsies. ??No current difficulty swallowing. COMPARISON: 09/13/2017 thyroid ultrasound TECHNIQUE: Transcutaneous ultrasound evaluation of the thyroid bed was performed for analysis of grayscale and color Doppler imaging characteristics. FINDINGS: The right thyroid lobe measures 5.8 x 3.1 x 3.1 cm. The left thyroid lobe measures 5.7 x 3.1 x 2.7 cm. The isthmus measures 8.4 ??mm in thickness. ?? Dominant nodule in the right thyroid lobe has somewhat heterogeneous internal echogenicity but is overall isoechoic to surrounding tissue. ??The borders are poorly defined. ??Measurements on the current exam include regions of the gland not measured previously. ??Change in measurement size is due to perceived differences in location of nodule boundaries between studies. ??The overall area has similar appearance. ??Currently the nodule measures 2.8 x 2.6 x 2.2 cm. ??TIRADS 3. 2.1 x 1.2 x 1.5 cm nodule in the isthmus. ??This is solid with no shadowing calcifications. ??Similar to the other nodule, the area of the gland has similar appearance to the prior study but the perceived borders by technologist difference in location. ??The change in measurement is due to perceived boundary differences rather than true change in appearance of the overall region of thyroid. ??This nodule is slightly hypoechoic overall to surrounding tissue and is therefore TIRADS 4 nodule. 2.1 x 2.4 x 2.1 cm mostly solid and partially cystic nodule in the left thyroid lobe. ??No shadowing calcifications. ??Borders are fairly well-defined. ??Overall size similar to the prior study. ??Solid components are partially hypoechoic. ??TIRADS 3 nodule. 15 x 12 x 14 mm wider than tall well-circumscribed partially hypoechoic and partially isoechoic solid nodule in the left thyroid lobe. ??No shadowing calcifications. ??Stable in size from prior study. ??TIRADS 4 nodule. Remainder of thyroid tissue bilaterally has homogeneous grayscale appearance with somewhat increased flow on Doppler imaging. ??No surrounding abnormal fluid collections or lymphadenopathy. ===== Procedure Note Mike Cruz MD - 05/29/2022 EXAMINATION: Thyroid ultrasound EXAM DATE/TIME: 05/28/2022 10:49 AM REASON FOR EXAM: Nontoxic goiter, unspecified Swelling in the neck for one month. History of bilateral benignbiopsies. No current difficulty swallowing. COMPARISON: 09/13/2017 thyroid ultrasound TECHNIQUE: Transcutaneous ultrasound evaluation of the thyroid bed wasperformed for analysis of grayscale and color Doppler imagingcharacteristics. FINDINGS: The right thyroid lobe measures 5.8 x 3.1 x 3.1 cm. The left thyroid lobemeasures 5.7 x 3.1 x 2.7 cm. The isthmus measures 8.4 mm in thickness. Dominant nodule in the right thyroid lobe has somewhat heterogeneousinternal echogenicity but is overall isoechoic to surrounding tissue. Theborders are poorly defined. Measurements on the current exam includeregions of the gland not measured previously. Change in measurement sizeis due to perceived differences in location of nodule boundaries betweenstudies. The overall area has similar appearance. Currently the nodulemeasures 2.8 x 2.6 x 2.2 cm. TIRADS 3. 2.1 x 1.2 x 1.5 cm nodule in the isthmus. This is solid with no shadowingcalcifications. Similar to the other nodule, the area of the gland hassimilar appearance to the prior study but the perceived borders bytechnologist difference in location. The change in measurement is due toperceived boundary differences rather than true change in appearance ofthe overall region of thyroid. This nodule is slightly hypoechoic overallto surrounding tissue and is therefore TIRADS 4 nodule. 2.1 x 2.4 x 2.1 cm mostly solid and partially cystic nodule in the leftthyroid lobe. No shadowing calcifications. Borders are fairlywell-defined. Overall size similar to the prior study. Solid componentsare partially hypoechoic. TIRADS 3 nodule. 15 x 12 x 14 mm wider than tall well-circumscribed partially hypoechoicand partially isoechoic solid nodule in the left thyroid lobe. Noshadowing calcifications. Stable in size from prior study. TIRADS 4nodule. Remainder of thyroid tissue bilaterally has homogeneous grayscaleappearance with somewhat increased flow on Doppler imaging. Nosurrounding abnormal fluid collections or lymphadenopathy. ===== IMPRESSION: ===== 1. Bilateral thyroid nodules are likely not significant changed fromprior study when allowing for different techniques in measurement anddiffering visibility of the nodule boundaries between techniques andequipment utilized. Continued annual surveillance recommended. 2. Diffuse hyperemia throughout the gland suggesting low-levelthyroiditis of uncertain etiology. Correlation with thyroid laboratoryrecommended. Referred By: LARRY ANN Interpreted By: Mike Cruz MD, 05/29/2022 10:47 PM us [facility] Final Result documented in this encounter Visit Diagnoses Diagnosis Nontoxic goiter, unspecified documented in this encounter Care Teams Academic Program Specialist Relationship Specialty Start Date End Date Kevin Bowles MD PCP - General FAMILY PRACTICE 01/11/18 documented as of this encounter
--- OUTSIDE RECORDS SUMMARY | 2024-04-01 11:13 | XMS_ITS | Encounter Summary ---
Author Organization [facility] Address [address] [place] [address]. [place] [address] [place] [address] Care Team Providers Care Die Inspector Name Role Phone Unavailable Primary Care Provider Unavailabl e Reason for Visit * Reason Onset Date Comments Preprocedure Call 01/07/2018 Encounter Details Date Type Department Care Team (Late st Contact Info) Description 01/07/2018 Pre-Procedure Call [facility] [place] [address] Yareli Begum MD [address] [place] [address] Preprocedure Call Social History Tobacco Use Types Packs/Day Years Used Date Smoking Tobacco: Never Smokeless Tobacco: Never Alcohol Use Standard Drinks/Week Comments No 0 (1 standard drink = 0.6 oz pur e alcohol) Comments No Sex and Gender Information Value Date Recorded Sex Assigned at Not on file Legal Sex Female 9:36 PM CDT Gender Identity Not on file Sexual Orientation Not on file documented as of this encounter Last Filed Vital Signs Vital Sign Reading Time Taken Comments Blood Pressure - - Pulse - - Temperature - - Respiratory Rate - - Oxygen Saturation - - Inhaled Oxygen Concentration - - Weight 131.5 kg (290 lb) 01/07/2018 12:00 AM CDT Height 163.8 cm (5' 4.5 ) 01/07/2018 12:00 AM CD T Body Mass Index 49.01 01/07/2018 12:00 AM CDT documented in this encounter Plan of Treatment Not on file documented as of this encounter Visit Diagnoses Not on filedocumented in this encounter
--- OUTSIDE RECORDS SUMMARY | 2024-04-01 11:13 | XMS_ITS | Encounter Summary ---
Author Organization [facility] Address [address] [place] [address]. [place] [address] [place] [address] Care Team Providers Care Lead Mechanic Name Role Phone Kevin Bowles MD Primary Care Provider [phone]- [phone] Encounter Details Date Type Department Care Team (Late st Contact Info) Description 01/11/2018 Orders Only [facility] [address] [place], [place] [id number] Windy Eason MD [address] [facility] [address], [place] [address] Social History Tobacco Use Types Packs/Day Years [...] on file documented as of this encounter Plan of Treatment Not on file documented as of this encounter Procedures Procedure Name Priority Date/Time Associated Diagnosis Comments CYTOLOGY GENERIC Routine 01/11/2018 12:0 0 AM CDT documented in this encounter Results * CYTOLOGY GENERIC (01/11/2018 12:00 AM CDT) CYTOLOGY OTHER CYTOLOGY FINAL REPORT Patient Name: [facility]. Rec. #:[id number] : 1970 (Age: 47) Gender: F Physician(s): WINDY RANDALL Client: [facility] Location: [facility] #[id number] Copy To: Taken: 01/11/2018 Received: 01/11/2018 Reported: 01/13/2018 Specimen(s) Received A: Thyroid, Fine Needle Aspiration, Right B: Thyroid, Fine Needle Aspiration, Left Inferior C: Thyroid, Fine Needle Aspiration, Left Mid Final Pathologic Diagnosis A. THYROID, RIGHT INFERIOR, NODULE; ULTRASOUND-GUIDED FINE NEEDLE ASPIRATION: -BENIGN The aspirate smears and Thin Prep slide demonstrate bland-appearing follicular cells consistent with a benign follicular nodule. B. THYROID, LEFT INFERIOR, NODULE; ULTRASOUND-GUIDED FINE NEEDLE ASPIRAITON: -BENIGN The aspirate smears and Thin Prep slide demonstrate bland-appearing follicular cells consistent with a benign follicular nodule. C. THYROID, LEFT MID, NODULE; ULTRASOUND-GUIDED FINE NEEDLE ASPIRATION: -NON-DIAGNOSTIC The aspirate smears and Thin Prep slides demonstrate insufficient cellularity for adequate diagnosis. Recommended additional biopsy after an appropriate time interval. ifh/01/12/2018 Electronically Signed Out By FIDENCIO RUDD Microscopic Description Microscopic examination is performed and the findings support the final diagnosis. Clinical History Thyroid nodules Frozen Section Diagnosis Immediate Interpretation A. Right inferior Pass 1: Follicular cells Pass 2: Follicular cells Pass 3: Follicular cells Pass 4: Scant follicular cells B. Left inferior Pass 1: Follicular cells Pass 2: Scant follicular cells Pass 3: Scant follicular cells C. Left mid Pass 1: Blood Pass 2: Macrophages Pass 3: Macrophages Pass 4: Rare colloid Pass 5: Rare follicular cells AMANDA DEL CID Gross Description A. Received from four passes are four air dried slides and four fixed slides along with 30 cc of red CytoLyt from which one Thin Prep is made. B. Received from three passes are three air dried slides and three fixed slides along with 30 cc of red CytoLyt from which one Thin Prep is made. C. Received from five passes are five air dried slides and five fixed slides along with 30 cc of red CytoLyt from which one Thin Prep is made. ?? mpw/ifh/01/11/2018 Billing Fee Code(s): 79145(3), 09971(3) [facility] 01/11/2018 01/11/2018 11: 41 AM CDT Comment:THYROID, FINE NEEDLE ASPIRATION, RIGHT&THYROID, FINE NEEDLE ASPIRATION, LEFT INFERIOR&THYROID, FINE NEEDLE ASPIRATION, LEFT MID us Windy Christiansen MD PATHOLOGY/CYTOLOGY ORDERABL ES Final Result [facility] [address] [place] [address], documented in this encounter Visit Diagnoses Not on filedocumented in this encounter Care Teams Lead Mechanic Relationship Specialty Start Date End Date Kevin Bowles MD PCP - General FAMILY PRACTICE 01/11/18 documented as of this encounter
--- OUTSIDE RECORDS SUMMARY | 2024-04-01 11:13 | XMS_ITS | Encounter Summary ---
Author Organization [facility] - [facility] Address [address] [place] [address]. [place] [address] [place] [address] Care Team Providers Care Resident Intern Name Role Phone Kevin Bowles MD Primary Care Provider [phone] Reason for Referral * Imaging (Routine) - Closed Specialty Diagnoses / Procedures Referred By Contac t Referred To Contact [facility] Ultrasound Diagnoses Multiple thyroid nodules Procedures US GD THYROID FINE NDL ASPIR Windy Eason MD Phone: tel: fax: [facility] Ultrasound [address] [place] [address] Phone: tel: Referral ID Status Reason Start Date Expiration Date V isits Requested Visits Authorized [id number] Closed Ultrasound 06/30/2018 07/31/2019 1 1 Reason for Visit * Reason Comments Thyroid Nodule follow up Thyroid Problem * Consultation/Treatment (Routine) - Closed Specialty Diagnoses / Procedures Referred By Contact Referred To Contact INTERNAL MEDICINE / ENDOCRINOLOGY Diagnoses 6 mo f/u Zahra's Procedures FOLLOW UP Windy Eason MD [facility] [facility] [address], [place] [address] Phone: tel: fax: Windy Eason MD [address] [place] [address] [address], [place] [address] Phone: tel: fax: Referral ID Status Reason Start Date Expiration Date Visits Re quested Visits Authorized [id number] Closed 06/30/2018 07/01/2019 1 1 Encounter Details Date Type Department Care Team (Late st Contact Info) Description 06/30/2018 10:00 AM CDT Office Visit [facility] Diabetes and Endocrinology - [address] [place] [address] [place] [address] Windy Eason MD [address] [facility] [address] [place] [id number] Thyroid Nodule (follow up); Thyroid Problem Social History Tobacco Use Types Packs/Day Years [...] Pressure - - Pulse - - Temperature 36.7 ??C (98.1 ??F) 06/30/2018 1 0:10 AM CDT Respiratory Rate 20 06/30/2018 10:1 0 AM CDT Oxygen Saturation 96% 06/30/2018 10: 10 AM CDT Inhaled Oxygen Concentration - - Weight 136.3 kg (300 lb 6.4 oz) 019 10:10 AM CDT Height 162.6 cm (5' 4 ) 06/30/2018 10:1 0 AM CDT Body Mass Index 51.56 06/30/2018 10:10 AM CDT documented in this encounter Patient Instructions * Patient Instructions* Windy Christiansen MD - 06/30/2018 10:00 AM CDT - continue synthroid 175 mcg daily - labs soon and will adjust dose based on test results - FNA of Left thyroid nodule soon - follow up in 6 months - will need repeat US in 6 months documented in this encounter Progress Notes * Windy Christiansen MD - 06/30/2018 10:00 AM CDT ENDOCRINOLOGY VISIT NOTE 06/30/2018 10:36 AM Reason for Visit: follow up Chief Complaint: zahra thyroiditis. 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 in [place], zahra thyroiditis here for follow up seen for the first time on 06/22/17 TAMI 12/23/17 diagnosed with zahra thyroiditis at the age of 17 did not start medication until the age of 26 at initila visit she was switched from levothyroxin to synthroid 175 mcg daily takes it in the morning on empty stomach waits for 1h before eating anything US checked in august 2017 showed a MNG goiter with 2 nodules on the left measuring 2.2 and 1.6 cm , anodule on the rigt of 2.1 cm and isthmus nodule of 1.1 cm She is s/p FNA biopsy of 3 nodules on 01/11/18 R nodule and L inferior nodules came back benign L mid nodule non diagnostic She is scheduled for a repeat biopsy next month Feeling tired She is anemic Just recently started iron supplements Missed 4 days of synthroid 2 months ago No change in size of neck No dysphagia or dysphonia No dyspnea + heat and cold intolerance No diarrhea or constipation No tremors Occasional palpitations + dry skin Gained 10 lbs since last visit No proximal muscle weakness Periods irregular for the last 2 years family hx paternal GM had Graves disease Patient Active Problem List Diagnosis ??? Anemia ??? Carpal tunnel syndrome ??? Zahra's thyroiditis ??? 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/HCC) ??? Low vitamin D level ??? Mass of parotid gland ??? Migraines ??? Multiple thyroid nodules ??? Neck pain ??? Paresthesia of both hands ??? Seasonal allergic rhinitis ??? Sicca (CMS/HCC) ??? Unknown and unspecified causes of morbidity ??? Vitamin D deficiency Past Medical History: Diagnosis Date ??? Anemia ??? Disease of thyroid gland Zahra's thyroiditis ??? Inflammatory arthritis ??? Multiple thyroid nodules ??? Parotid mass ??? Rheumatoid arthritis (CMS/HCC) ??? Seasonal allergies ??? Sjogren's disease (CMS/HCC) ??? Vitamin D deficiency Past Surgical History: Procedure Laterality Date ??? ADENOIDECTOMY ??? CARPAL TUNNEL RELEASE Bilateral ??? CHOLECYSTECTOMY ??? FOREARM/WRIST SURGERY UNLISTED Left ??? HAND/FINGER SURGERY UNLISTED Left joint ??? TONSILLECTOMY No family history on file. Social History Socioeconomic History ??? Marital status: Spouse name: Not on file ??? Number of children: Not on file ??? Years of education: Not on file ??? Highest education level: Not on file Occupational History ??? Not on file Social Needs ??? Financial resource strain: Not on file ??? Food insecurity: Worry: Not on file Inability: Not on file ??? Transportation needs: Medical: Not on file Non-medical: Not on file Tobacco Use ??? Smoking status: Never Smoker ??? Smokeless tobacco: Never Used Substance and Sexual Activity ??? Alcohol use: No Frequency: Never ??? Drug use: No ??? Sexual activity: Not on file Lifestyle ??? Physical activity: Days per week: Not on file Minutes per session: Not on file ??? Stress: Not on file Relationships ??? Social connections: Talks on phone: Not on file Gets together: Not on file Attends hoahaoism service: Not on file Active member of club or organization: Not on file Attends meetings of clubs or organizations: Not on file Relationship status: Not on file ??? Intimate partner violence: Fear of current or ex partner: Not on file Emotionally abused: Not on file Physically abused: Not on file Forced sexual activity: Not on file Other Topics Concern ??? Not on file Social History Narrative ??? Not on file Current Outpatient Medications Medication Sig Dispense Refill ??? acetaminophen (TYLENOL) 500 MG tablet Take 1 tablet by mouth. ??? cloNIDine 0.2 MG tablet Take 1 tablet by mouth. ??? diphenhydrAMINE (BENADRYL) 25 MG capsule ??? folic acid 1 MG tablet Take 1 mg by mouth daily. ??? hydroxychloroquine 200 MG tablet Take 1 tablet by mouth 2 (two) times daily. ??? ibuprofen (ADVIL) 200 MG tablet Take 1 tablet by mouth. ??? lifitegrast (XIIDRA) 5 % ophthalmic solution ??? methotrexate 2.5 MG tablet TAKE 6 TABLETS BY MOUTH ONCE WEEKLY ??? ondansetron 4 MG tablet Once a week ??? pseudoephedrine (SUDAFED 12 HOUR) 120 MG 12 hr tablet ??? sulfaSALAzine 500 MG delayed release tablet Take 3 tablets by mouth 2 (two) times daily. ??? SYNTHROID 175 MCG tablet TAKE ONE TABLET BY MOUTH ONCE DAILY 30 tablet 3 ??? trazodone 50 MG tablet Take 50 mg by mouth as needed. ??? vitamin D2, ergocalciferol, 12128 UNITS capsule Take 1 capsule by mouth once a week. No current facility-administered medications for this visit. Allergies Allergen Reactions ??? Ketorolac Unknown REVIEW OF SYSTEMS: See HPI PHYSICAL EXAM: Filed Vitals: 06/30/18 1010 Resp: 20 Temp: 98.1 ??F (36.7 ??C) TempSrc: Oral SpO2: 96% Weight: (!) 136.3 kg (300 lb 6.4 oz) Height: 5' 4 (1.626 m) Wt Readings from Last 3 Encounters: 06/30/18 (!) 136.3 kg (300 lb 6.4 oz) 01/07/18 131.5 kg (290 lb) Constitutional: She is oriented to person, place, and time and well-developed, well-nourished, and in no distress. HENT: Head: Normocephalic and atraumatic. Eyes: Pupils are equal, round, and reactive to light. Neck: thyroid diffusely enlarged and nodular Cardiovascular: Normal rate, regular rhythm and intact distal pulses. No murmur heard. Pulmonary/Chest: Effort normal. No respiratory distress. Abdominal: There is no tenderness. There is no guarding. Musculoskeletal: She exhibits no edema. Neurological: She is alert and oriented to person, place, and time.Gait normal. Skin: No erythema. Psychiatric: Mood, affect and judgment normal. Sensation to monofilament normal Labs: Patient Active Problem List TSH (mIU/L) Date Value 12/31/2017 2.68 HGB (g/dL) Date Value 12/31/2017 11.8 11/16/16 Hb 10.8 ?? 12/18/16 TSH 1.24 ?? 02/2017 glucose 102 creat: 0.7 ?? 06/01/17 Hb 12.9 ?? 09/06/17 TSH 1.86 Ca: 10 LDL 169 creat: 0.82 B12 645 vitamin d 28 ?? 09/13/17 US R lobe 6.8 x 2.3 x 2.5 cm R nodule of 2.1 cm L lobe 6.8 x 2.7 x 3 cm L isoechoic nodule 2.2 cm L lower hypoechoic nodule 1.6cm isthmus nodule 1.1 cm hypoechoic 01/11/18 Specimen(s) Received A: Thyroid, Fine Needle Aspiration, [...] a benign follicular nodule. C. THYROID, LEFT MID,??NODULE; ULTRASOUND-GUIDED FINE NEEDLE ASPIRATION: -NON-DIAGNOSTIC The aspirate smears and Thin Prep slides demonstrate insufficient cellularity for adequate diagnosis. Recommended additional biopsy after an appropriate time interval. ? Imaging/Procedures: Patient Active Problem List Diagnosis ??? Anemia ??? Carpal tunnel syndrome ??? Zahra's thyroiditis ??? 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/HCC) ??? Low vitamin D level ??? Mass of parotid gland ??? Migraines ??? Multiple thyroid nodules ??? Neck pain ??? Paresthesia of both hands ??? Seasonal allergic rhinitis ??? Sicca (CMS/HCC) ??? Unknown and unspecified causes of morbidity ??? Vitamin D deficiency 1. Zahra's thyroiditis SYNTHROID 175 MCG tablet THYROXINE, FREE (FT4) THYROID STIM HORMONE, TSH FREE T3 2. Vitamin D deficiency VITAMIN D, 25 [place] 3. Multiple thyroid nodules US GD THYROID FINE NDL ASPIR Assessment and Plan: 48 yo F seen today for follow up for Zahra thyroiditis and MNG she is currently on synthroid 175 mcg daily will check TFT and adjust dose based on labs ?? enlarged thyroid gland on exam US showed a MNG S/p FNA biopsy of the 2 dominant nodules on the left and dominant nodule on the right The left mid nodule biopsy came back non diagnostic She is scheduled for repeat FNA next month ?? follow up in 6 months Will need repeat US in 6 months An After Visit Summary was printed and given to the patient. WINDY CHRISTIANSEN documented in this encounter Plan of Treatment Scheduled Orders Name Type Priority Associated Diagnoses Orde r Schedule THYROXINE, FREE (FT4) Lab Routine Zahra's thyroiditis Expected: 06/30/2018, Expires: 07/01/2019 THYROID STIM HORMONE, TSH Lab Routine Zahra's thyroiditis Expected: 06/30/2018, Expires: 07/01/2019 VITAMIN D, 25 OH Lab Routine Vitamin D deficiency Expected: 06/30/2018, Expires: 07/01/2019 FREE T3 Lab Routine Zahra's thyroiditis Expected: 06/30/2018, Expires: 07/01/2019 documented as of this encounter Results * US GD THYROID FINE NDL ASPIR (07/28/2018 11:34 AM CDT) Anatomical Region Laterality Modality Neck Ultrasound, Radi ographic Imaging 07/28/2018 3:19 PM CDT Impressions 07/29/2018 8:47 AM CDT =====IMPRESSION:===== 1. Left thyroid interpolar posterior 1.9 cm nodule 25-gauge needle ultrasound-guided FNA performed. Narrative 07/29/2018 8:47 AM CDT Examination: Ultrasound guided thyroid biopsy. Exam date/time: 07/28/2018 10:17 AM ?? REASON FOR EXAM: Bilateral thyroid nodules. Previous left thyroid lobe nodule x2 FNA in 01/11/2018; left interpolar nodule FNA deemed insufficient. We sampling requested COMPARISON: Ultrasound guided FNA 01/11/2018; ultrasound thyroid 09/13/2017 PROCEDURE/FINDINGS: Informed verbal and written consent was obtained. The procedure was discussed with the patient, including benefits, alternatives and risks including but not limited to bleeding, infection and damage to adjacent structures. Patient expressed understanding and wished to proceed. Initial survey ultrasound was performed was performed showing a dominant inferior pole solid nodule. This was previously sampled and deemed benign. An interpolar posterior hypoechoic nodule measuring 1.9 x 1.4 x 1.6 seen with a central small cystic component is identified. This was targeted for sampling. The patient's neck was prepped and draped in usual sterile fashion. 1% lidocaine was administered for local anesthesia. Multiple 25-gauge needle FNA samples were acquired under ultrasound guidance from the interpolar nodule. Samples were assessed by the pathologist on site. Patient tolerated the procedure well. There are no immediate complications. Procedure Note Yareli Begum MD - 07/29/2018 Examination: Ultrasound guided thyroid biopsy. Exam date/time: 07/28/2018 10:17 AM REASON FOR EXAM: Bilateral thyroid nodules. Previous left thyroid lobe nodule x2 FNA in 01/11/2018; left interpolar nodule FNA deemed insufficient. We sampling requested COMPARISON: Ultrasound guided FNA 01/11/2018; ultrasound thyroid09/13/2017 PROCEDURE/FINDINGS: Informed verbal and written consent was obtained.The procedure was discussed with the patient, including benefits,alternatives and risks including but not limited to bleeding, infection and damage to adjacent structures. Patient expressed understanding and wished toproceed. Initial survey ultrasound was performed was performed showing a dominant inferior pole solid nodule. This was previously sampled and deemedbenign. An interpolar posterior hypoechoic nodule measuring 1.9 x 1.4 x 1.6 seen with a central small cystic component is identified. This was targetedfor sampling. The patient's neck was prepped and draped in usual sterile fashion. 1% lidocaine was administered for local anesthesia. Multiple 25-gauge needle FNA samples were acquired under ultrasound guidance from the interpolar nodule. Samples were assessed by the pathologist on site. Patient tolerated the procedure well. There are no immediatecomplications. =====IMPRESSION:===== 1. Left thyroid interpolar posterior 1.9 cm nodule 25-gauge needle ultrasound-guided FNA performed. us Windy Christiansen MD ULTRASOUND Final Resul t documented in this encounter Visit Diagnoses Diagnosis Zahra's thyroiditis- Primary Chronic lymphocytic thyroiditis Vitamin D deficiency Unspecified vitamin D deficiency Multiple thyroid nodules Nontoxic multinodular goiter Multiple thyroid nodules Nontoxic multinodular goiter documented in this encounter Care Teams Resident Intern Relationship Specialty Start Date End Date Kevin Bowles MD PCP - General FAMILY PRACTICE 01/11/18 documented as of this encounter
--- OUTSIDE RECORDS SUMMARY | 2024-04-01 11:13 | XMS_ITS | Encounter Summary ---
Author Organization [facility] Address [address] [place] [address]. [place], [place] [address] [place] [address] Care Team Providers Care Clinical Dietician Name Role Phone Unavailable Primary Care Provider Unavailabl e Encounter Details Date Type Department Care Team (Latest Contact Info) Description 06/23/2017 Abstract [facility] Social History Tobacco Use Types Packs/Day Years Used Date Smoking Tobacco: Never Assessed Comments Unknown Sex and Gender Information Value Date Recorded Sex Assigned at Not on file Legal Sex Female 9:36 PM CDT Gender Identity Not on file Sexual Orientation Not on file documented as of this encounter Plan of Treatment Not on file documented as of this encounter Visit Diagnoses Not on filedocumented in this encounter
--- OUTSIDE RECORDS SUMMARY | 2024-04-01 11:13 | XMS_ITS | Encounter Summary ---
Author Organization [facility] Address [address] [place] [address]. [place], [place] [address] [place] [address] Care Team Providers Care Cnc Laser Operator Name Role Phone Unavailable Primary Care Provider Unavailabl e Encounter Details Date Type Department Care Team (Latest Contact Info) Description 11/16/2016 Abstract [facility] Medical Group Social History Tobacco Use Types [...]
--- OUTSIDE RECORDS SUMMARY | 2024-04-01 11:13 | XMS_ITS | Encounter Summary ---
Author Organization [facility] Address [address] [place] [address]. [place], [place] [address] [place] [id number] Care Team Providers Care Creative Writing Teacher Name Role Phone Unavailable Primary Care Provider Unavailabl e Encounter Details Date Type Department Care Team (Latest Contact Info) Description 09/28/2015 Abstract [facility] Medical Group Social History Tobacco Use [...]
--- OUTSIDE RECORDS SUMMARY | 2024-04-01 11:13 | XMS_ITS | Clinical Summary ---
Author Organization [facility] Address [address] [place] [address]. [place] [address] [place] [address] Care Team Providers Care Operating System Designer Name Role Phone Kevin Bowles MD Primary Care Provider [phone] Allergies Active Allergy Reactions Criticality Noted Date Comments Tape Rash Low 02/05/2024 Ketorolac Swelling 06/22/2017 tongue numbness and swelling Medications acetaminophen (TYLENOL) 500 MG tablet Take 1 tablet by mouth. Active diphenhydrAMINE (BENADRYL) 25 MG capsule Active cloNIDine 0.2 MG tablet Take 1 tablet by mouth. 8 Active hydroxychloroqu ine 200 MG tablet Take 1 tablet by mouth 2 (two) times daily. 7 Active ibuprofen (ADVIL) 200 MG tablet Take 1 tablet by mouth. Active pseudoephedrine (SUDAFED 12 HOUR) 120 MG 12 hr tablet Active sulfaSALAzine 500 MG delayed release tablet Take 3 tablets by mouth 2 (two) times daily. 8 Active lifitegrast (XIIDRA) 5 % ophthalmic solution Active vitamin D2, ergocalciferol, 73507 UNITS capsule Take 1 capsule by mouth once a week. 7 Active methotrexate 2.5 MG tablet TAKE 6 TABLETS BY MOUTH ONCE WEEKLY 9 Active trazodone 50 MG tablet Take 50 mg by mouth as needed. Active folic acid 1 MG tablet Take 1 mg by mouth daily. 9 Active ondansetron 4 MG tablet Once a week 9 Active triamcinolone (KENALOG) 0.1 % cream Apply topically 2 (two) times daily. 45 g 11/16/202 4 Active Active Problems Problem Noted Date Diagnosed Date Paresthesia of both hands 11/12/2017 Overview (06/29/2018): Last Assessment & Plan: She had abrupt onset of burning cold sensation between the MCP and PIP joints the last 2 days. Symptoms are constant and she does not know any known triggers. Her sensation is intact on exam and skin is appropriately warm with capillary refill less than 2 sec. Etiology is uncertain. Based on distribution a nerve impingement is not likely. This does not appear vasculitic. This certainly could be an adverse event from the methotrexate although as she has been on this for over 6 weeks now this would be an unusual presentation. We will defer any specific intervention at this time although if this progresses will consider an EMG/nerve conduction study versus an ultrasound of the hand and wrist for additional evaluation. Multiple thyroid nodules 10/22/2017 Neck pain 09/02/2017 Overview (06/29/2018): Last Assessment & Plan: She has had increased neck pain and stiffness for several weeks. She denies any trauma. She does have some mild discomfort with with range of motion on exam today. Symptoms are worse with activity and improved with rest and I suspect some degenerative etiology. I offered to obtain x-ray of her cervical spine although she wants to defer at this time. Continue Tylenol as needed. Anemia 06/22/2017 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 ([facility]) 06/22/2017 Overview (06/30/2018): Overview: Xray bilat hands reveal no erosive changes. US R hand and wrist reveal mild/moderate synovitis with effusions US right hand/wrist (06/02/17): Moderate synovitis with effusions, synovial thickening and power doppler.. Findings greatest in the radial/scaphoid joint with grade 2 effusion and grade 1 power doppler and the long view of the wrist with a grade 1 effusion and grade 1 power doppler with synovial thickening of 1.0 cm. Grade 1 effusion and power doppler also seen in the 2nd MCP. Grade 1 power doppler seen in the 3rd MCP joint and the volar 4th PIP joint. Synovial thickening seen throughout the wrist, MCP, and PIP joints. Vectra 29 (06/01/17) Initial complaints of tenosynovitis of L wrist. Also has had pain and stiffness in hands, wrists. On mtx, hcq, ssz mtx started 09/02/17 Last Assessment & Plan: Low cdai. Notes recent flare in hands and feet, however has since resolved. Denies any joint pain at rest, however notes pain with activity. Morning stiffness lasts a few minutes. Few tender joints on exam, however no obvious swelling noted. Will continue methotrexate 15mg weekly, folic acid 1mg daily, plaquenil 200mg BID, and sulfasalazine 1500mg BID. Reviewed recent labs with patient that showed some mild anemia, but were otherwise okay. Continue routine labs via standing order. UTD eye exam. Continue routine eye exams to monitor for retinal toxicity. Follow up in 3 months. Sooner if needed. Mass of parotid gland 06/22/2017 Migraines 06/22/2017 Vitamin D deficiency 06/22/2017 Low vitamin D level 09/28/2016 Overview (06/29/2018): Overview: Vit D 21 per labs 06/2016 Last Assessment & Plan: Vit D 21 per labs 06/2016. On replacement therapy 50,000 IU weekly. Will recheck level. Sicca ([facility]) 09/28/2016 Overview (06/29/2018): Overview: Serology neg for Sjogren's. Has eye drops per ophth which has helped. Symptoms stable. R parotid gland swelling Involving R parotid gland per imaging. Had ultrasound and needle biopsy which was inconclusive per pt. Follows with ENT. Last Assessment & Plan: Serology neg for Sjogren's. Has eye drops per ophth which has helped. Symptoms stable. Hannah's thyroiditis 06/03/2015 Overview (06/29/2018): Overview: Hannah thyroiditis Seasonal allergic rhinitis 06/03/2015 Overview (06/29/2018): Overview: Seasonal nasal allergies Unknown and unspecified causes of morbidity 05/20 Overview (06/29/2018): Overview: Migraines Carpal tunnel syndrome 10/14/2012 Encounters Date Type Department Care Team Description 02/05/2024 11:45 PM TRANSPORTATION CONSULTANT - 02/05/2024 11:51 PM TRANSPORTATION CONSULTANT Emergency [facility] [place] [address] Dorina Jiang PA Rash Discharge Disposition: Home or Self Care (Routine Discharge) 02/05/2024 Travel from Last 3 Months Social History Tobacco Use Types Packs/Day Years [...] on file Sexual Orientation Not on file Last Filed Vital Signs Vital Sign Reading Time Taken Comments Blood Pressure 119/61 02/05/2024 11:06 PM TRANSPORTATION CONSULTANT Pulse 66 02/05/2024 11:06 PM TRANSPORTATION CONSULTANT Temperature 36.9 ??C (98.5 ??F) 02/05/2024 1 1:06 PM TRANSPORTATION CONSULTANT Respiratory Rate 20 02/05/2024 11:0 6 PM TRANSPORTATION CONSULTANT Oxygen Saturation 98% 02/05/2024 11: 06 PM TRANSPORTATION CONSULTANT Inhaled Oxygen Concentration - - Weight 110.8 kg (244 lb 4.3 oz) 024 11:06 PM TRANSPORTATION CONSULTANT Height 162.6 cm (5' 4 ) 02/05/2024 11:0 6 PM TRANSPORTATION CONSULTANT Body Mass Index 41.93 02/05/2024 11:06 PM TRANSPORTATION CONSULTANT Plan of Treatment Health Maintenance Due Date Last Done Comments Cervical Cancer Screening Pap Smear (Age 30 to 64) Every 3 Years 1970 Colorectal Cancer Screening Colonoscopy (10 Years) 1970 Annual Physical 1973 Hepatitis C 1988 DTaP, Tdap and Td Vaccines (1 - Tdap) 1989 Hepatitis B Vaccines (1 of 3 - 19+ 3-dose series) 1989 Cervical Cancer Screening Pap with HPV Testing (Age 30 to 64) Every 5 Years 2000 Cervical Cancer Screening with HPV 2000 Zoster Vaccines (1 of 2) 2020 COVID-19 Vaccine ( season) 2023 05/22/2021, 11/21/2020, 06/12/2020, Additional history exists Influenza Adult (#1) 2023 11/20/2021, 01/03/2021, 12/29/2019 Mammogram Screening 01/10/2026 01/11/2024, 11/30/2022, 09/26/2021, Additional history exists Meningococcal Vaccine Aged Out No salas fabian eligible based on patient's age to complete this topic Pneumococcal Vaccine: Pediatrics (0 to 5 Years) and At-Risk Patients (6 to 64 Years) Aged Out No longer eligible based on patient's age to complete this topic RSV Immunizations Under 20 Months Aged Out No longer eligible based on patient's age to complete this topic Insurance Care Teams Operating System Designer Relationship Specialty Start Date End Date Kevin Bowles MD PCP - General FAMILY PRACTICE 01/11/18
--- OUTSIDE RECORDS SUMMARY | 2024-04-01 11:13 | XMS_ITS | Encounter Summary ---
Author Organization [facility] Address [address] [place] [address] Care Team Providers Care Road Contractor Name Role Phone Kevin Bowles MD Primary Care Provider [phone]- [phone] Reason for Visit * Reason Comments Pain Arm Encounter Details Date Type Department Care Team (Late st Contact Info) Description 03/13/2021 4:00 PM [employer] Office Visit [facility] [address] [phone] Provider, [facility] Rheumatoid arthritis of right shoulder (HCC) (Primary Dx) Social History Tobacco Use Types Packs/Day Years Used Date Smoking Tobacco: Never Smokeless Tobacco: Never Tobacco Cessation:Counseling Given: No Sex and Gender Information Value Date Recorded Sex Assigned at Not on file Gender Identity Not on file Sexual Orientation Not on file documented as of this encounter Last Filed Vital Signs Vital Sign Reading Time Taken Comments Blood Pressure 138/92 03/13/2021 10:23 AM [employer] Pulse 65 03/13/2021 10:11 AM [employer] Temperature 36.7 ??C (98 ??F) 03/13/2021 10:11 AM [employer] Respiratory Rate 18 03/13/2021 10:11 AM [employer] Oxygen Saturation 98% 03/13/2021 10:11 AM [employer] Inhaled Oxygen Concentration - - Weight 136.1 kg (300 lb) 03/13/2021 10:11 AM [employer] Height 162.6 cm (5' 4 ) 03/13/2021 10:11 AM [employer] Body Mass Index 51.49 03/13/2021 10:11 AM [employer] documented in this encounter Progress Notes * Annmarie Stein, FITNESS TECHNICIAN-ICE HOCKEY COACH - 03/13/2021 10:26 AM CST [facility] Monica Buckner is a 50 year old female who presents for evaluation: Chief Complaint Patient presents with ??? Pain Arm Primary Care Physician is Kevin Bowles MD. 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 She needs a steroid Rx. General The history is provided by the patient. This is a new problem. The current episode started 2 days ago. The problem has been gradually worsening. The pain is moderate. The symptoms are localized to the right shoulder, right arm, right elbow, right hand and right wrist.Pertinent negatives include no headaches. Treatments tried: ibuprofen. The treatment provided no relief. Past Medical History: Diagnosis Date ??? Hypothyroid ??? RA (rheumatoid arthritis) There is no problem list on file for this patient. Current Outpatient Medications on File Prior to Visit Medication Sig Dispense Refill ??? cloNIDine (CATAPRES) 0.2 MG tablet Take 0.2 mg by mouth 2 times daily ??? hydroxychloroquine (PLAQUENIL) 200 MG tablet Take by mouth once daily ??? ibuprofen (ADVIL) 200 MG capsule Take 200 mg by mouth 4 times daily as needed for Pain ??? levothyroxine (SYNTHROID) 175 MCG tablet Take 175 mcg by mouth daily before breakfast ??? methotrexate 2.5 MG tablet Take by mouth every 7 days ??? montelukast (SINGULAIR) 10 MG tablet Take 10 mg by mouth at bedtime ??? ondansetron (ZOFRAN) 8 MG tablet Take 8 mg by mouth every 6 hours as needed for Nausea/Vomiting ??? traZODone (DESYREL) 50 MG tablet Take 50 mg by mouth at bedtime No current facility-administered medications on file prior to visit. Past Surgical History: Procedure Laterality Date ??? CARPAL TUNNEL SURGERY Bilateral ??? Cholecystectomy ??? Knee Arthroscopy ??? TENDON REPAIR Left wrist ??? THUMB/FINGERS AMPUTATION accidental ??? Tonsillectomy and Adenoidectomy Social History Socioeconomic History ??? Marital status: Spouse name: Not on file ??? Number of children: Not on file ??? Years of education: Not on file ??? Highest education level: Not on file Occupational History ??? Not on file Tobacco Use ??? Smoking status: Never Smoker ??? Smokeless tobacco: Never Used Vaping Use ??? Vaping Use: Never used Substance and Sexual Activity ??? Alcohol use: Not on file ??? Drug use: Not on file ??? Sexual activity: Not on file Other Topics Concern ??? Not on file Social History Narrative ??? Not on file Social Determinants of Health Financial Resource Strain: Not on file Food Insecurity: Not on file Transportation Needs: Not on file Physical Activity: Not on file Stress: Not on file Social Connections: Not on file Intimate Partner Violence: Not on file Housing Stability: Not on file No family history on file. Current Outpatient Medications Medication Sig Dispense Refill ??? cloNIDine (CATAPRES) 0.2 MG tablet Take 0.2 mg by mouth 2 times daily ??? hydroxychloroquine (PLAQUENIL) 200 MG tablet Take by mouth once daily ??? ibuprofen (ADVIL) 200 MG capsule Take 200 mg by mouth 4 times daily as needed for Pain ??? levothyroxine (SYNTHROID) 175 MCG tablet Take 175 mcg by mouth daily before breakfast ??? methotrexate 2.5 MG tablet Take by mouth every 7 days ??? montelukast (SINGULAIR) 10 MG tablet Take 10 mg by mouth at bedtime ??? ondansetron (ZOFRAN) 8 MG tablet Take 8 mg by mouth every 6 hours as needed for Nausea/Vomiting ??? predniSONE (DELTASONE) 20 MG tablet Take three tablets PO once daily x 3 days, 2 tablets daily x 3 days, one tablet daily x 2 days Reasons: RA flare 17 tablet 0 ??? traZODone (DESYREL) 50 MG tablet Take 50 mg by mouth at bedtime No current facility-administered medications for this visit. Allergies Allergen Reactions ??? Toradol [Ketorolac] Anaphylaxis REVIEW OF SYSTEMS: Review of Systems Constitutional: Negative for chills and fever. HENT: Negative for congestion. Respiratory: Negative for cough. Musculoskeletal: Positive for joint pain and myalgias. Neurological: Negative for headaches. OBJECTIVE: General appearance: alert, pleasant and in no distress. BP 138/92 (BP CUFF SIZE: 12) Pulse 65 Temp 98 ??F (36.7 ??C) (Oral) Resp 18 Ht 1.626 m (5' 4 ) Wt 136.1 kg (300 lb) SpO2 98% BMI 51.49 kg/m2 Physical Exam Constitutional: Appearance: Normal appearance. HENT: Nose: Nose normal. Cardiovascular: Rate and Rhythm: Normal rate and regular rhythm. Pulmonary: Effort: Pulmonary effort is normal. Breath sounds: Normal air entry. Musculoskeletal: Right shoulder: Tenderness present. No swelling or deformity. Normal range of motion. Right elbow: No swelling or deformity. Normal range of motion. Tenderness present. Right wrist: Tenderness present. No swelling or deformity. Right hand: Tenderness present. No swelling or deformity. Normal range of motion. Comments: Pain in joints in right arm/shoulder. ROM WNL Psychiatric: Behavior: Behavior is cooperative. No results found for this or any previous visit (from the past 24 hour(s)). ASSESSMENT: Encounter Diagnosis Name Primary? Rheumatoid arthritis of right shoulder Yes PLAN: Follow up with occupational health and safety manager Orders Placed This Encounter ??? predniSONE (DELTASONE) 20 MG tablet Sig: Take three tablets PO once daily x 3 days, 2 tablets daily x 3 days, one tablet daily x 2 daysReasons: RA flare Dispense: 17 tablet Refill: 0 I have spent a total of 20 minutes. Time was spent reviewing medical history, performing physical exam, documenting, counseling/educating, reviewing plan of care. [employer] documented in this encounter Plan of Treatment Not on file documented as of this encounter Visit Diagnoses Diagnosis Rheumatoid arthritis of right shoulder (HCC)- Primary documented in this encounter Care Teams Road Contractor Relationship Specialty Start Date End Date Kevin Bowles MD [address] [place] [phone] PCP - General Family Medicine 06/03/15 documented as of this encounter
--- OUTSIDE RECORDS SUMMARY | 2024-04-01 11:13 | XMS_ITS | Encounter Summary ---
Author Organization [facility] Address [address] [place] [address]. [place], [place] [id number] [place] [id number] Care Team Providers Care Bankruptcy Attorney Name Role Phone Unavailable Primary Care Provider Unavailabl e Encounter Details Date Type Department Care Team (Latest Contact Info) Description 06/05/2015 Abstract [facility] Social History Tobacco Use [...]
--- OUTSIDE RECORDS SUMMARY | 2024-04-01 11:13 | XMS_ITS | Encounter Summary ---
Author Organization [facility] Address [address] [place] [address]. [place] [address] [place] [address] Care Team Providers Care Composition Floor Setter Name Role Phone Kevin Bowles MD Primary Care Provider +1- [phone] Encounter Details Date Type Department Care Team (Late st Contact Info) Description 12/23/2017 Abstract [facility] Medical [facility] - [address], [address] [place] [address] Windy Eason MD [address] [facility] [address] [place] [address] Social History Tobacco Use Types Packs/Day Years Used Date Smoking Tobacco: Never Assessed AUDIT-C Answer Date Recorded Frequency of Alcohol Consumption Never 01/11/2018 Average Number of Drinks Not on file 018 Frequency of Binge Drinking Not on file 12/21 Comments Unknown Sex and Gender Information Value Date Recorded Sex Assigned at Not on file Legal Sex Female 9:36 PM CDT Gender Identity Not on file Sexual Orientation Not on file documented as of this encounter Last Filed Vital Signs Vital Sign Reading Time Taken Comments Blood Pressure 110/60 12/23/2017 10:08 AM CDT Pulse 60 12/23/2017 10:07 AM CDT Temperature - - Respiratory Rate - - Oxygen Saturation - - Inhaled Oxygen Concentration - - Weight 131.6 kg (290 lb 2.1 oz) 018 10:07 AM CDT Height 162.6 cm (5' 4 ) 12/23/2017 10:0 7 AM CDT Body Mass Index 49.8 12/23/2017 10:07 AM CDT documented in this encounter Progress Notes * Windy Christiansen MD - 12/23/2017 10:00 AM CDT Message pleaes call patient with test results. TFT are normal . continue same dose of synthroid 175 mcg daily . continue vitamiN d 50,000 IU weekly the FNA biopsy of the right nodule and the left inferior nodule were benign. biopsy of the other nodule on the left ( the mid nodule) was non diagnostic which means there were not enough cells to read it by patholoy. recommend repeating FNA biopsy of only that nodule in 3 months Verified Results US GD THYROID FINE NDL ASPIR 11Jan2018 01:00PM Windy Eason Test Name Result Flag Reference (Report) EXAMINATION: Thyroid ultrasound guided biopsy Exam Date/Time: 01/11/2018 11:19 AM Reason For Exam: Multiple thyroid nodules Comparison: 09/13/2017 thyroid ultrasound TECHNIQUE: After explaining the procedure to the patient and performing patient education inclusive of relaying potential side effects including but not limited to infection, bleeding, bodily harm, and the need for subsequent procedures, written informed consent was obtained. The patient was placed in supine position on [facility]. A timeout was performed during which patient identity, procedure to be performed, and patient allergies were confirmed. The anterior neck was evaluated with ultrasound for determination of appropriate skin entry location. The anterior neck was then prepped and draped in usual sterile fashion. Local anesthesia was provided by injection of 1% lidocaine solution totaling approximately 14 cc. Utilizing ultrasound guidance, 11 fine needle aspirations were obtained from various portions of 2 left-sided and one right-sided thyroid nodules. The patient tolerated the procedure well. There were no immediate complications. Immediate bedside pathology was adequate. IMPRESSION: 1. Technically successful ultrasound-guided FNA of 2 left and one right thyroid nodules. No immediate complications. Interpreted By: Mike Cruz MD, 01/11/2018 3:33 PM Cytology 11Jan2018 12:00AM Windy Eason Test Name Result Flag Reference Cytology (Report) CYTOLOGY FINAL REPORT Patient Name: MONICA BUCKNER [facility]. Rec. #:[id number] : 1970 (Age: 47) Gender: F Physician(s): WINDY CRUZ Client: [facility] Location: [facility] #[id number] Copy To: Taken: 01/11/2018 Received: 01/11/2018 Reported: [...] additional biopsy after an appropriate time interval. [facility]/01/12/2018 Electronically Signed Out By FIDENCIO RUDD Microscopic [...] from which one Thin Prep is made. mpw/if/01/11/2018 Billing Fee Code(s): 77954(3), 82915(3) QU-CBC ( INCLUDES DIFF/PLT ) 6399 31Dec2017 01:52PM Dylon ЕленаWindy Test Name Result Flag Reference WHITE BLOOD CELL COUNT 6.4 3.8-10.8 UNITS: Thousand/uL RED BLOOD CELL COUNT 4.38 Million/uL 3.80-5.10 HEMOGLOBIN 11.8 g/dL 11.7-15.5 HEMATOCRIT 36.0 % 35.0-45.0 MCV 82.2 fL 80.0-100.0 MCH 26.9 pg L 27.0-33.0 MCHC 32.8 g/dL 32.0-36.0 RDW 16.7 % H 11.0-15.0 PLATELET COUNT 282 140-400 UNITS: Thousand/uL MPV 9.2 fL 7.5-12.5 ABSOLUTE NEUTROPHILS 3629 cells/uL 8700-2835 ABSOLUTE LYMPHOCYTES 2067 cells/uL 850-3900 ABSOLUTE MONOCYTES 582 cells/uL 200-950 ABSOLUTE EOSINOPHILS 109 cells/uL 15-500 ABSOLUTE BASOPHILS 13 cells/uL 0-200 NEUTROPHILS 56.7 % LYMPHOCYTES 32.3 % MONOCYTES 9.1 % EOSINOPHILS 1.7 % BASOPHILS 0.2 % Test Performed at: [facility] [address] [place] [address] KYMBERLY JETER DO,MPH QU-PROTHROMBIN TIME-INR 8847 31Dec2017 01:52PM Windy Eason Test Name Result Flag Reference INR 1.0 Reference Range 0.9-1.1 Moderate-intensity Warfarin Therapy 2.0-3.0 Higher-intensity Warfarin Therapy 3.0-4.0 PT 10.4 sec 9.0-11.5 For more information on this test, go to: http://education.Huupy/faq/LVO015 Test Performed at: [facility] [address] [place] [address] KYMBERLY JETER DO,MPH QU-T4, FREE 866 31Dec2017 01:52PM [place] [facility] Test Name Result Flag Reference T4, FREE 1.3 ng/dL 0.8-1.8 Test Performed at: [facility] [address] [place] [address] KYMBERLY JETER DO,MPH QU-TSH 899 31Dec2017 01:52PM [facility] Windy Test Name Result Flag Reference TSH 2.68 mIU/L Reference Range > or = 20 Years 0.40-4.50 Ranges First trimester 0.26-2.66 Second trimester 0.55-2.73 Third trimester 0.43-2.91 Test Performed at: [facility] [address] [place] [address] KYMBERLY JETER DO,MPH QU-T3, FREE 89291 31Dec2017 01:52PM ЕленаFloridaWindy Test Name Result Flag Reference T3, FREE 2.8 pg/mL 2.3-4.2 Test Performed at: [facility] [address] KYMBERLY JETER DO,MPH QU-VITAMIN D, 25-HYDROXY, LC/MS/MS 55156 31Dec2017 01:52PM ЕленаFloridaWindy Test Name Result Flag Reference VITAMIN D,25-OH, TOTAL, IA 31 ng/mL 30-100 Vitamin D Status 25-OH Vitamin D: Deficiency: <20 ng/mL Insufficiency: 20 - 29 ng/mL Optimal: > or = 30 ng/mL For 25-OH Vitamin D testing on patients on D2-supplementation and patients for whom quantitation of D2 and D3 fractions is required, the QuestAssureD(TM) 25-OH VIT D, (D2,D3), LC/MS/MS is recommended: order code 97799 (patients >2yrs). For more information on this test, go to: http://education.Huupy/faq/ADK985 (This link is being provided for informational/educational purposes only.) REPORT COMMENT: FASTING:NO Test Performed at: [facility] [address] [place] [address] KYMBERLY JETER,DO,MPH Plan Anemia ?? CBC W Differential; Status:Hold For - Manual Activation; Requested for:23Dec2017; ?? Protime ( PT / INR ); Status:Hold For - Manual Activation; Requested for:23Dec2017; Zahra's thyroiditis ?? Free T4 ( Thyroxine ); Status:Hold For - Manual Activation; Requested for:23Dec2017; ?? Follow-up visit in 6 months Outpatient Follow-up Status: Hold For - Scheduling Requested for: 23Dec2017 ?? Free Triiodothyronine ( T3 ); Status:Hold For - Manual Activation; Requested for:23Dec2017; ?? Thyroid Stim Hormone ( TSH ); Status:Hold For - Manual Activation; Requested for:23Dec2017; Multiple thyroid nodules ?? US BX THYROID NEEDLE PERC; Status:Hold For - Scheduling,Exact Date; Requested for:in 3 months; ?? US BX THYROID NEEDLE PERC; Status:Hold For - Scheduling; Requested for:23Dec2017; Vitamin D deficiency ?? Vitamin D 25 - Hydroxy; Status:Hold For - Manual Activation; Requested for:23Dec2017; * Windy Christiansen MD - 12/23/2017 10:00 AM CDT Reason For Visit Consultation Follow-Up Chief Complaint zahra thyroiditis History of Present Illness 47 yo F with seronegative autoimmune arthritis following with chromosomal disorders counselor in [place], zahra thyroiditis here for follow up seen for the first time on 06/22/17 diagnosed with zahra thyroiditis at the age of 17 did not start medication until the age of 26 never had any biopsy on her thyroid at initila visit she was switched from levothyroxin to synthroid 175 mcg daily takes it in the morning on empty stomach waits for 1h before eating anything no change in size of neck no dysphagia or dysphonia + heat intolerance in the last couple of years periods are currently irregular in the last 2 years was having decreased energy no tremors no palpitations except if having more caffeine no diarrhea or constipation + insomnia no mood swings weight stable started gaining weight in her 20's + hair loss recently + dry skin was recently started on MTX for her RA feeling better since starting methotrexate hair is better sleep is better + heat and cold intolerance lost 8 lbs she is currently on vitamin d 50,000 IU weekly US checked in august showed a MNG goiter with 2 nodules on the left measuring 2.2 and 1.6 cm , a nodule on the rigt of 2.1 cm and isthmus nodule of 1.1 cm family hx paternal GM had Graves disease HPI Free Text: Review of Systems Constitutional: fatigue, but no fever and no chills. Eyes: no blurred vision. ENT: no sore throat and no hoarseness. Cardiovascular: no chest pain and no palpitations. Respiratory: no shortness of breath and no dry cough. Gastrointestinal: no abdominal pain, no nausea, no constipation, no vomiting and no diarrhea. Genitourinary: no urinary frequency. Musculoskeletal: diffuse joint pain. Integumentary skin lump. Neurological no headache and no dizziness. Psychiatric: insomnia. Endocrine hot flashes. Active Problems 1. Anemia (285.9) (D64.9) 2. 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 Inflammatory arthritis (714.9) (M19.90) 4. Mass of parotid gland (784.2) (K11.9) 5. Migraines (346.90) (G43.909) 6. Multiple thyroid nodules (241.1) (E04.2) 7. Sjogren's disease (710.2) (M35.00) 8. Vitamin D deficiency (268.9) (E55.9) Past Medical History 1. History of vaginal delivery (V13.29) ?? x3 Surgical History 1. History of carpal tunnel surgery 2. History of Gallbladder Surgery 3. History of Wrist Surgery Family History 1. Family history of cardiac disorder (V17.49) (Z82.49) 2. Family history of lupus erythematosus (V19.8) (Z84.0) 3. Family history of cardiac disorder (V17.49) (Z82.49) 4. Family history of rheumatoid arthritis (V17.7) (Z82.61) Social History ?? Caffeine use (V49.89) (Z78.9) ?? Never a smoker ?? No alcohol use Current Meds 1. Advil TABS; TAKE 1 TABLET EVERY 6 TO 8 HOURS NEEDED; Therapy: (Recorded:22Jun2017) to Recorded Dispense: 0 Days ; #: Sufficient Tablet; Refill: 0; BRET = N; Record; Last Updated By: Ayah Kat; 06/22/2017 1:43:52 PM 2. Benadryl 25 MG CAPS; NEEDED; Therapy: (Recorded:22Jun2017) to Recorded Dispense: 0 Days ; #: Sufficient Each; Refill: 0; BRET = N; Record; Last Updated By: Ayah Kat; 06/22/2017 1:43:52 PM 3. CloNIDine HCl - 0.2 MG Oral Tablet; TAKE 1 TABLET AT BEDTIME; Therapy: 08Apr2017 to Recorded Rx By: JACQUELINE; Dispense: 0 Days ; #: Sufficient X 100 Tablet Bottle; Refill: 0; BRET = N; Record; Last Updated By: Ayah Kat; 06/22/2017 1:37:06 PM 4. Hydroxychloroquine Sulfate 200 MG Oral Tablet; Take 1 tablet twice daily; Therapy: 12Nov2016 to (Evaluate:16Feb2017) Recorded Rx By: ROSIE; Dispense: 0 Days ; #: Sufficient Tablet; Refill: 0; BRET = N; Record; Last Updated By: Ayah Kat; 06/22/2017 1:37:05 PM 5. Methotrexate 2.5 MG Oral Tablet; take 6 tablets po every 7 days; Therapy: (Recorded:23Dec2017) to Recorded Dispense: 0 Days ; #: Sufficient Tablet; Refill: 0; For: Zahra's thyroiditis; BRET = N; Record; Last Updated By: Ayah Kat; 12/23/2017 10:10:16 AM 6. Sudafed 12 Hour 120 MG Oral Tablet Extended Release 12 Hour; NEEDED; Therapy: (Recorded:22Jun2017) to Recorded Dispense: 0 Days ; #: Sufficient Tablet; Refill: 0; BRET = N; Record; Last Updated By: Ayah Kat; 06/22/2017 1:43:52 PM 7. SulfaSALAzine 500 MG Oral Tablet Delayed Release; TAKE 3 TABLET Twice daily; Therapy: 28May2017 to (Evaluate:27Jun2017) Recorded Rx By: ROSIE; Dispense: 0 Days ; #: Sufficient Tablet; Refill: 0; BRET = N; Record; Last Updated By: Ayah Kat; 06/22/2017 1:37:05 PM 8. Synthroid 175 MCG Oral Tablet; TAKE 1 TABLET BY MOUTH DAILY; Therapy: 22Jun2017 to (Evaluate:18Jan2018) Requested for: 22Jun2017; Last Rx:22Jun2017 Ordered Rx By: Windy Eason; Dispense: 30 Days ; #:30 Tablet; Refill: 6; For: Zahra's thyroiditis; BRET = Y; Verified Transmission to [facility]; Last Updated By: Oni Pizarro; 06/22/2017 2:03:29 PM 9. Tylenol Extra Strength TABS; TAKE 1 TABLET EVERY 4 TO 6 HOURS NEEDED; Therapy: (Recorded:22Jun2017) to Recorded Dispense: 0 Days ; #: Sufficient Tablet; Refill: 0; BRET = N; Record; Last Updated By: Ayah Kat; 06/22/2017 1:43:52 PM 10. Vitamin D (Ergocalciferol) 43522 UNIT Oral Capsule; TAKE 1 CAPSULE Weekly; Therapy: [id number] to (Evaluate:10Jun2017) Recorded Rx By: ROSIE; Dispense: 0 Days ; #: Sufficient Capsule; Refill: 0; BRET = N; Record; Last Updated By: Ayah Kat; 06/22/2017 1:37:06 PM 11. Xiidra 5 % Ophthalmic Solution; 1 drop ou BID; Therapy: (Recorded:22Jun2017) to Recorded Dispense: 0 Days ; #: Sufficient Milliliter; Refill: 0; For: Mass of parotid gland; BRET = N; Record; Last Updated By: Ayah Kat; 06/22/2017 1:37:06 PM Allergies 1. Toradol IM SOLN Recorded By: Ayah Kat; 06/22/2017 1:37:06 PM Vitals Recorded: 23Dec2017 10:07AM Temperature 98.3 F Heart Rate 60 Respiration 20 O2 Saturation 98 Height 5 ft 4 in Weight 290 lb 2 oz BMI Calculated 49.8 BSA Calculated 2.29 Systolic Sitting 110 Diastolic Sitting 60 Systolic Standing 108 Diastolic Standing 60 Physical Exam Constitutional General appearance: No acute distress, well appearing and well nourished. Eyes Conjunctiva and lids: No swelling, erythema or discharge. Ears, Nose, Mouth, and Throat External inspection of ears and nose: Normal. Pulmonary Respiratory effort: No increased work of breathing or signs of respiratory distress. Auscultation of lungs: Clear to auscultation. Cardiovascular Palpation of heart: Normal PMI, no thrills. Auscultation of heart: Normal rate and rhythm, normal S1 and S2, without murmurs. Examination of extremities for edema and/or varicosities: Normal. Abdomen Abdomen: Non-tender, no masses. Lymphatic Palpation of lymph nodes in neck: No lymphadenopathy. Musculoskeletal Gait and station: Normal. Skin Skin and subcutaneous tissue: Normal without rashes or lesions. Neurologic Reflexes: 2+ and symmetric. Psychiatric Orientation to person, place, and time: Normal. Mood and affect: Normal. The thyroid was diffusely enlarged. Results/Data 11/16/16 Hb 10.8 12/18/16 TSH 1.24 02/2017 glucose 102 creat: 0.7 06/01/17 Hb 12.9 09/06/17 TSH 1.86 Ca: 10 LDL 169 creat: 0.82 B12 645 vitamin d 28 09/13/17 US R lobe 6.8 x 2.3 x 2.5 cm R nodule of 2.1 cm L lobe 6.8 x 2.7 x 3 cm L isoechoic nodule 2.2 cm L lower hypoechoic nodule 1.6cm isthmus nodule 1.1 cm hypoechoic Assessment 1. 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 CBC W Differential; Status:Hold For - Manual Activation; Requested for:23Dec2017; [facility]; Due:22Jan2018;Ordered; For:Anemia; Ordered By:Windy Eason; 2. Protime ( PT / INR ); Status:Hold For - Manual Activation; Requested for:23Dec2017; [facility]; Due:22Jan2018;Ordered; For:Anemia; Ordered By:Windy Eason; 3. Free T4 ( Thyroxine ); Status:Hold For - Manual Activation; Requested for:23Dec2017; [facility]; Due:22Jan2018;Ordered; For:Zahra's thyroiditis; Ordered By:Windy Eason; 4. Follow-up visit in 6 months Outpatient Follow-up Status: Hold For - Scheduling Requested for: 23Dec2017 Ordered; For: Zahra's thyroiditis; Ordered By: Windy Eason Performed: Due: 06Jan2018 5. Free Triiodothyronine ( T3 ); Status:Hold For - Manual Activation; Requested for:23Dec2017; [facility]; Due:22Jan2018;Ordered; For:Zahra's thyroiditis; Ordered By:Windy Eason; 6. Thyroid Stim Hormone ( TSH ); Status:Hold For - Manual Activation; Requested for:23Dec2017; [facility]; Due:22Jan2018;Ordered; For:Zahra's thyroiditis; Ordered By:Windy Eason; 7. US BX THYROID NEEDLE PERC; Status:Hold For - Scheduling; Requested for:23Dec2017; [facility]; Order Comments:FNA of the 2 left domnnant thyroid nodules ( 2.2 and 1.6cm) and the rigt nodule of 2.1 cm; Due:22Jan2018;Ordered; For:Multiple thyroid nodules; Ordered By:Windy Eason; 8. Vitamin D 25 - Hydroxy; Status:Hold For - Manual Activation; Requested for:23Dec2017; [facility]; Due:22Jan2018;Ordered; For:Vitamin D deficiency; Ordered By:Windy Eason; - continue synthroid 175 mcg daily - labs today . will adjust dose of synthroid - FNA biopsy of thyroid nodules - follow up in 6 months Discussion/Summary 47 yo F seen today for follow up for Zahra thyroiditis and MNG she is currently on synthroid 175 mcg daily feeling better will check TFT and adjust dose based on labs enlarged thyroid gland on exam US showed a MNG will proceed with FNA biopsy of the 2 dominant nodules on the left and dominant nodule on the right follow up in 6 months Signatures Electronically signed by : Windy Christiansen M.D.; Jan 17 2018 11:19AM CATERING SALES MANAGER (Author) documented in this encounter Miscellaneous Notes * Letter - Windy Christiansen MD - 12/23/2017 10:00 AM CDT Electronically signed by : Windy Christiansen M.D.; Jan 17 2018 11:19AM CATERING SALES MANAGER (Author) documented in this encounter Plan of Treatment Not on file documented as of this encounter Visit Diagnoses Not on filedocumented in this encounter Care Teams Composition Floor Setter Relationship Specialty Start Date End Date Kevin Bowles MD PCP - General FAMILY PRACTICE 01/11/18 documented as of this encounter
--- OUTSIDE RECORDS SUMMARY | 2024-04-01 11:13 | XMS_ITS | Encounter Summary ---
Author Organization [facility] Address [address] [place] [address]. [place], [place] [address] [place] [address] Care Team Providers Care [employer] Director Name Role Phone Unavailable Primary Care Provider Unavailabl e Encounter Details Date Type Department Care Team (Latest Contact Info) Description 12/18/2016 Abstract [facility] Social History Tobacco Use [...]
--- OUTSIDE RECORDS SUMMARY | 2024-04-01 11:13 | XMS_ITS | Encounter Summary ---
Author Organization [facility] Address [address] [place] [address]. [place], [place] [address] [place] [address] Care Team Providers Care Analytics Director Name Role Phone Kevin Bowles MD Primary Care Provider +1- [phone] Reason for Referral * Imaging (Routine) - Closed Specialty Diagnoses / Procedures Referred By Marc t Referred To Contact [facility] Ultrasound Diagnoses Multiple thyroid nodules Procedures US GD THYROID FINE NDL ASPIR Windy Eason MD Phone: tel: fax: [facility] [address] Phone: tel: Referral ID Status Reason Start Date Expiration Date V isits Requested Visits Authorized [id number] Closed Ultrasound 06/30/2018 07/31/2019 1 1 Reason for Visit * Imaging (Routine) - Closed Specialty Diagnoses / Procedures Referred By Contac t Referred To Contact [facility] Ultrasound Diagnoses Multiple thyroid nodules Procedures US GD THYROID FINE NDL ASPIR Windy Eason MD Phone: tel: fax: [facility] [address] Phone: tel: Referral ID Status Reason Start Date Expiration Date V isits Requested Visits Authorized [id number] Closed Ultrasound 06/30/2018 07/31/2019 1 1 Encounter Details Date Type Department Care Team (Late st Contact Info) Description 07/28/2018 8:50 AM CDT - 07/28/2018 11:59 PM CDT Hospital Encounter [facility] [place] [address] Windy Eason MD [address] [facility] [address] [place] [address] Discharge Disposition: Home or Self Care (Routine [...] on file documented as of this encounter Medications at [...] by mouth as needed. vitamin D2, ergocalciferol, [address] UNITS capsule Take 1 capsule by mouth once a week. 12/14/2016 SYNTHROID 175 MCG tabletIndications :Hannah's thyroiditis Take 1 tablet (175 mcg total) by mouth every morning. 90 tablet 3 06/30/2018 06/30/2019 documented as of this encounter Plan of Treatment Not on file documented as of this encounter Procedures Procedure Name Priority Date/Time Associated Diagnosis Comments US GD THYROID FINE NDL ASPIR Routine 07/28/2018 11:34 AM CDT Multiple thyroid nodules CYTOLOGY GENERIC Routine 07/28/2018 12:0 0 AM CDT documented in this encounter Results * US GD THYROID [...] Windy Christiansen MD ULTRASOUND Final Resul t * CYTOLOGY GENERIC (07/28/2018 12:00 AM CDT) CYTOLOGY OTHER CYTOLOGY FINAL REPORT Patient Name: BLACK BUCKNER Med. Rec. #:[id number] : 1970 (Age: 48) Gender: F Physician(s): WINDY BEGUM Client: [facility] Location: [facility] Billing #[id number] Copy To: Taken: 07/28/2018 Received: 07/28/2018 Reported: 07/29/2018 Specimen(s) Received Thyroid, Fine Needle Aspiration, Left Final Pathologic Diagnosis THYROID, LEFT NODULE; ULTRASOUND-GUIDED FINE NEEDLE ASPIRATION: -NEGATIVE/BENIGN The aspirate smears and Thin Prep slide demonstrates bland follicular cells with scattered H??rthle cells and abundant macrophages consistent with a benign reactive thyroid nodule with cystic change. There are focal areas of lymphoid tissue admixed with follicular cells suggestive of a lymphocytic thyroiditis. [facility]/07/29/2018 Electronically Signed Out By FIDENCIO RUDD Microscopic Description Microscopic examination is performed and the findings support the final diagnosis. Clinical History Lt thyroid nodule Frozen Section Diagnosis Immediate Interpretation Passes 1-3: Adequate cellularity FIDENCIO RUDD Gross Description Received from three passes are three air-dried slides and three fixed slides along with 30 cc of red CytoLyt from which one Thin Prep is made. ?? mpw/[facility]/07/28/2018 Billing Fee Code(s): 16348, [address] [facility] 07/28/2018 07/28/2018 11: 31 AM CDT Comment:THYROID, FINE NEEDLE ASPIRATION, LEFT Windy Christiansen MD PATHOLOGY/CYTOLOGY ORDERABL ES Final Result [facility] [address] [place] [address], documented in this encounter Visit Diagnoses Diagnosis Multiple thyroid nodules Nontoxic multinodular goiter documented in this encounter Administered Medications Inactive Administered Medications - up to 3 most recent administrations Medication Order MAR Action Action Date Dose Rate Site lidocaine (XYLOCAINE) 1 % injection SOLN 20 mL 20 mL, Intradermal, Once, 1 dose, On [place] 07/28/18 at 1200 Given 07/28/2018 10:50 AM CDT 10 mLs Neck documented in this encounter Care Teams Analytics Director Relationship Specialty Start Date End Date Kevin Bowles MD PCP - General FAMILY PRACTICE 01/11/18 documented as of this encounter
--- OUTSIDE RECORDS SUMMARY | 2024-04-01 11:13 | XMS_ITS | Encounter Summary ---
Author Organization [facility] Address [address] [place] [address]. [place] [address] [place] [address] Care Team Providers Care Underwriter Solicitation Director Name Role Phone Unavailable Primary Care Provider Unavailabl e Encounter Details Date Type Department Care Team (Latest Contact Info) Description 08/27/2017 Abstract [facility] Medical Group Social History Tobacco Use Types Packs/Day Years Used Date Smoking Tobacco: Never Assessed Comments Unknown Sex and Gender Information Value Date Recorded Sex Assigned at Not on file Legal Sex Female 9:36 PM CDT Gender Identity Not on file Sexual Orientation Not on file documented as of this encounter Progress Notes * Generic Conversion MD Lian - 08/27/2017 3:16 PM CDT Message Recorded as Task Date: 08/27/2017 01:19 PM, Created By: Isela Carrero Task Name: Follow Up Assigned To: Chalo Christiansen Nurse Team Regarding Patient: Monica Buckner, Status: In Progress Comment: Isela Carrero - 27 Aug 2017 1:19 PM TASK CREATED Caller: Self; General Medical Question; Please send lab orders to [facility]. Also patient would like to picking crew supervisor Thyroid US order at the desk in [facility]. Thanks! Ayah Kat - 27 Aug 2017 3:16 PM TASK EDITED called pt and got what [employer] to send to was Shi faxed labs there and pt will be here Wednesday to picking crew supervisor US order said she would schedule it herself, put in envelope to picking crew supervisor Wednesday at assistant front desk manager Signatures Electronically signed by : Ayah Kat, L.P.N.; Aug 27 2017 3:16PM ICE SELLER (Author) documented in this encounter Plan of Treatment Not on file documented as of this encounter Visit Diagnoses Not on filedocumented in this encounter
--- OUTSIDE RECORDS SUMMARY | 2024-04-01 11:13 | XMS_ITS | Encounter Summary ---
Author Organization [facility] Address [address] [place] [address]. [place] [address] [place] [address] Care Team Providers Care Hl7 Developer Name Role Phone Kevin Bowles MD Primary Care Provider +1- [phone] Encounter Details Date Type Department Care Team (Late st Contact Info) Description 01/11/2018 11:19 AM CDT - 01/11/2018 11:59 PM T Hospital Encounter Health system [place] [address] Yareli Begum MD [address] [place] [address] [phone] Discharge Disposition: Home or Self Care (Routine [...] mouth. 04/08/2017 diphenhydrAMINE (BENADRYL) 25 MG capsule hydroxychloroquin e 200 MG tablet Take 1 tablet by mouth 2 (two) times daily. 11/12/2016 ibuprofen (ADVIL) 200 MG tablet Take 1 tablet by mouth. lifitegrast (XIIDRA) 5 % ophthalmic solution pseudoephedrine (SUDAFED 12 HOUR) 120 MG 12 hr tablet sulfaSALAzine 500 MG delayed release tablet Take 3 tablets by mouth 2 (two) times daily. 05/28/2017 vitamin D2, ergocalciferol, 02860 UNITS capsule Take 1 capsule by mouth once a week. 12/14/2016 levothyroxine (SYNTHROID) 175 MCG tablet Take 1 tablet by mouth daily. 06/22/2017 06/10/2018 documented as of this encounter Plan of Treatment Not on file documented as of this encounter Procedures Procedure Name Priority Date/Time Associated Diagnosis Comments PLATELET COUNT, AUTO Routine 01/11/2018 11:30 AM CDT PROTHROMBIN TIME, VENOUS Routine 01/11/2018 11:30 AM CDT documented in this encounter Results * PROTIME/INR, VENOUS (01/11/2018 11:30 AM CDT) PROTIME 11.7 9.6 - 12.2 SEC 01/11/2018 12:09 PM CDT [facility] INR 1.1 01/11/2018 12:09 PM CDT [facility] Comment: Recommended INR Therapeutic Goals: ??2.0-3.0 Routine Therapy ??2.5-3.5 Mechanical Prosthetic Valves (High Risk) ??3.0-4.0 Acute SC (to prevent Systemic Embolism) The INR is used only for patients on stable oral anticoagulant therapy. It makes no significant contribution to the diagnosis or treatment of patients whose Protime is prolonged for other reasons. 01/11/2018 11:3 0 AM CDT us Yareli Begum MD LABORATORY Final Result [facility] [address] [place] [address], * (ABNORMAL) PLATELET COUNT, AUTO (01/11/2018 11:30 AM CDT) PLT 275 130 - 400 x10'3/uL 01/11/2018 12:08 PM CDT [facility] MPV 9.1(L) 9.3 - 12.2 FL 01/11/2018 12:08 PM CDT [facility] 01/11/2018 11:3 0 AM CDT Yareli Begum MD LABORATORY Final Result [facility] [address] [place] [address], documented in this encounter Visit Diagnoses Not on filedocumented in this encounter Care Teams Hl7 Developer Relationship Specialty Start Date End Date Kevin Bowles MD PCP - General FAMILY PRACTICE 01/11/18 documented as of this encounter
--- OUTSIDE RECORDS SUMMARY | 2024-04-01 11:13 | XMS_ITS | Encounter Summary ---
Author Organization [facility] Address [address] [place] [address]. [place] [address] [place] [address] Care Team Providers Care Maintenance Advisor Name Role Phone Unavailable Primary Care Provider Unavailabl e Encounter Details Date Type Department Care Team (Latest Contact Info) Description 11/04/2017 Abstract [facility] Medical Group , Generic ConversionMD Social History Tobacco Use Types Packs/Day Years Used Date Smoking Tobacco: Never Assessed Comments Unknown Sex and Gender Information Value Date Recorded Sex Assigned at Not on file Legal Sex Female 9:36 PM CDT Gender Identity Not on file Sexual Orientation Not on file documented as of this encounter Progress Notes * Generic Conversion MD Lian - 11/04/2017 11:44 AM CDT Message Recorded as Task Date: 09/07/2017 11:32 AM, Created By: Jessica Gilmore Task Name: Review Document Assigned To: Carlos Christiansen Nurse Team Regarding Patient: Monica Buckner, Status: In Progress Comment: Jessica Gilmore - 07 Sep 2017 11:32 AM Labs Windy Eason - 22 Oct 2017 6:31 PM TASK REPLIED TO: Previously Assigned To Carlos Christiansen Nurse Team please call patient with test results. her TFT are normal continue same dose of synthroid her US is showing an enlarged gland with multiple nodules. this is most likely due to her zahra she has one large nodule on the right and 2 on the left. recommend FNA biopsy if agreeable to it Ayah Kat - 25 Oct 2017 11:02 AM TASK EDITED called pt left detailed messge on phone of lab and ultrasound results and asking if she agrees for biopsy of nodules, asked to call nurse back and let us know if want to proceed with biopsy Ayah Kat 26 Oct 2017 3:09 PM TASK REASSIGNED: [facility] Nurse [facility] Ayah Kat 29 Oct 2017 1:31 PM TASK EDITED called pt left detaile message to see if she received message about test esults and if she was wanting to proceed with thyroid biopsy to call back and let us know where she would like it scheduled toan if not want to do it Ayah Kat 04 Nov 2017 11:31 AM TASK EDITED never heard back from pt will send letter Ayah Kat 04 Nov 2017 11:44 AM TASK EDITED letter put in the mail to call office to schedule thyroid biopsy Signatures Electronically signed by : Ayah Kat, L.P.N.; Nov 04 2017 11:44AM HEALTHCARE TRANSLATOR (Author) documented in this encounter Miscellaneous Notes * Letter - Generic Conversion MD Lian - 11/04/2017 11:31 AM CDT Recorded as Task Date: 09/07/2017 11:32 AM, Created By: Jessica Gilmore Task Name: Review Document Assigned To: Chalo Christiansen Nurse Team Regarding Patient: Monica Buckner, Status: In Progress Comment: Jessica Gilmore - 07 Sep 2017 11:32 AM Labs Windy Eason - 22 Oct 2017 6:31 PM TASK REPLIED TO: Previously Assigned To Chalo Christiansen Nurse Team please call patient with test results. her TFT are normal continue same dose of synthroid her US is showing an enlarged gland with multiple nodules. this is most likely due to her zahra she has one large nodule on the right and 2 on the left. recommend FNA biopsy if agreeable to it Ayah Kat 25 Oct 2017 11:02 AM TASK EDITED called pt left detailed messge on phone of lab and ultrasound results and asking if she agrees for biopsy of nodules, asked to call nurse back and let us know if want to proceed with biopsy Ayah Kat 26 Oct 2017 3:09 PM TASK REASSIGNED: [facility] Nurse [facility] Ayah Kat - 29 Oct 2017 1:31 PM TASK EDITED called pt left detaile message to see if she received message about test esults and if she was wanting to proceed with thyroid biopsy to call back and let us know where she would like it scheduled toan if not want to do it Ayah Kat - 04 Nov 2017 11:31 AM TASK EDITED never heard back from pt will send letter Have been unable to reach you, If you would like to do the thyroid biopsy please call the office [phone] Thank you, MAURICIO Poon Signatures Electronically signed by : Ayah Kat, Riki.P.N.; Nov 04 2017 11:32AM HEALTHCARE TRANSLATOR (Author) documented in this encounter Plan of Treatment Not on file documented as of this encounter Visit Diagnoses Not on filedocumented in this encounter
--- OUTSIDE RECORDS SUMMARY | 2024-04-01 11:13 | XMS_ITS | Encounter Summary ---
Author Organization [facility] Address [address] [place] [address]. [place], [place] [address] [place] [address] Care Team Providers Care Machine Bander And Cellophaner Helper Name Role Phone Unavailable Primary Care Provider Unavailabl e Encounter Details Date Type Department Care Team (Latest Contact Info) Description 09/13/2017 Abstract [facility] Medical Group Windy Eason MD [address] [facility] [address] [address] Social History Tobacco Use Types Packs/Day Years [...]
--- OUTSIDE RECORDS SUMMARY | 2024-04-01 11:13 | XMS_ITS | Encounter Summary ---
Author Organization [facility] Address [address] [place] [address]. [place] [address] [place] [address] Care Team Providers Care Membership Counselor Name Role Phone Kevin Bowles MD Primary Care Provider +1- [phone] Reason for Visit * Reason Onset Date Comments Appointment Request 10/17/2018 Encounter Details Date Type Department Care Team (Late st Contact Info) Description 10/17/2018 Telephone [facility] Medical Group Diabetes and Endocrinology - [address] [address] Gerri Woods MD Appointment Request Social History Tobacco Use Types Packs/Day Years [...] as of this encounter Progress Notes * Rita Rangel - 10/17/2018 2:03 PM CDT Called pt to get her 6 month f/u appt made, had to leave a vm documented in this encounter Plan of Treatment Not on file documented as of this encounter Visit Diagnoses Not on filedocumented in this encounter Care Teams Membership Counselor Relationship Specialty Start Date End Date Kevin Bowles MD PCP - General FAMILY PRACTICE 01/11/18 documented as of this encounter
--- OUTSIDE RECORDS SUMMARY | 2024-04-01 11:13 | XMS_ITS | Encounter Summary ---
Author Organization [facility] Address [address] [place] [address]. [place] [address] [place] [address] Care Team Providers Care New Autos Delivery Driver Name Role Phone Kevin Bowles MD Primary Care Provider +1- [phone] Encounter Details Date Type Department Care Team (Late st Contact Info) Description 07/28/2018 8:50 AM CDT - 07/28/2018 11:59 PM CDT Hospital Encounter [facility] [place] [address] Yareli Begum MD [address] [place] [address] [phone] Discharge Disposition: Home or Self Care (Routine [...] by mouth as needed. vitamin D2, ergocalciferol, 64997 UNITS capsule Take 1 capsule by mouth once a week. 12/14/2016 SYNTHROID 175 MCG tabletIndications :Hannah's thyroiditis Take 1 tablet (175 mcg total) by mouth every morning. 90 tablet 3 06/30/2018 06/30/2019 documented as of this encounter Plan of Treatment Not on file documented as of this encounter Procedures Procedure Name Priority Date/Time Associated Diagnosis Comments PLATELET COUNT, AUTO Routine 07/28/2018 8:57 AM CDT PARTIAL THROMBOPLASTIN TIME,PTT Routine 07/28/2018 8:57 AM CDT PROTHROMBIN TIME, VENOUS Routine 07/28/2018 8:57 AM CDT documented in this encounter Results * PTT, PARTIAL THROMBOPLASTIN TIME (07/28/2018 8:57 AM CDT) PTT 35.3 25.5 - 37.6 SEC 07/28/2018 9:31 AM CDT [facility] 07/28/2018 8:57 AM CDT us Yareli Begum MD LABORATORY Final Result [facility] [address] [place] [address], [place] [phone] * PROTIME/INR, VENOUS (07/28/2018 8:57 AM CDT) PROTIME 11.8 9.6 - 12.2 SEC 07/28/2018 9:31 AM CDT [facility] INR 1.1 07/28/2018 9:31 AM CDT [facility] Comment: Recommended INR Therapeutic Goals: ??2.0-3.0 Routine Therapy ??2.5-3.5 Mechanical Prosthetic Valves (High Risk) ??3.0-4.0 Acute [place] (to prevent Systemic Embolism) The INR is used only for patients on stable oral anticoagulant therapy. It makes no significant contribution to the diagnosis or treatment of patients whose Protime is prolonged for other reasons. 07/28/2018 8:57 AM CDT us Yareli Begum MD LABORATORY Final Result Performing Organization Address City/[facility]/ZIP Co de Phone Number [facility] [address] [place] [address], [place] [phone] * (ABNORMAL) PLATELET COUNT, AUTO (07/28/2018 8:57 AM CDT) PLT 262 130 - 400 x10'3/uL 07/28/2018 9:17 AM CDT [facility] MPV 8.7(L) 9.3 - 12.2 FL 07/28/2018 9:17 AM CDT [facility] 07/28/2018 8:57 AM CDT us Yareli Begum MD LABORATORY Final Result [facility] [address] [place] [address], [place] [phone] documented in this encounter Visit Diagnoses Not on filedocumented in this encounter Care Teams New Autos Delivery Driver Relationship Specialty Start Date End Date Kevin Bowles MD PCP - General FAMILY PRACTICE 01/11/18 documented as of this encounter
--- OUTSIDE RECORDS SUMMARY | 2024-04-01 11:13 | XMS_ITS | Encounter Summary ---
Author Organization [facility] Address [address] [place] [address]. [place] [address] [place] [address] Care Team Providers Care Cloth Bleaching Range Tender Name Role Phone Kevin Bowles MD Primary Care Provider +1- [phone] Reason for Visit * Reason Onset Date Comments Preprocedure Call 07/21/2018 Encounter Details Date Type Department Care Team (Late st Contact Info) Description 07/21/2018 Pre-Procedure Call [facility] [place] [address] Yareli Begum MD [address] [place] [address] Preprocedure Call Social History Tobacco Use Types [...] - Inhaled Oxygen Concentration - - Weight 133.8 kg (295 lb) 07/21/2018 12:00 AM CDT Height 162.6 cm (5' 4 ) 07/21/2018 12:00 AM CDT Body Mass Index 50.64 07/21/2018 12:00 AM CDT documented in this encounter Plan of Treatment Not on file documented as of this encounter Visit Diagnoses Not on filedocumented in this encounter Care Teams Cloth Bleaching Range Tender Relationship Specialty Start Date End Date Kevin Bowles MD PCP - General FAMILY PRACTICE 01/11/18 documented as of this encounter
--- OUTSIDE RECORDS SUMMARY | 2024-04-01 11:13 | XMS_ITS | Encounter Summary ---
Author Organization [facility] Address [address] [place] [address]. [place] [address] [place] [address] Care Team Providers Care Cut Out Press Operator Name Role Phone Kevin Bowles MD Primary Care Provider +1- [phone] Encounter Details Date Type Department Care Team (Late st Contact Info) Description 08/23/2018 Results Notification [facility] Medical Group Diabetes and Endocrinology - [place] [address] [facility] [place] [address] [place] [address] Windy Eason MD [address] [place] [address] [address], [place] [address] Social History Tobacco Use Types Packs/Day Years [...] as of this encounter Progress Notes * Ayah Kat LPN - 08/24/2018 2:06 PM CDT Called pt and informed of test results and asked if she did blood work she stated she thought she did, if she needs the lab rec she will call us back * Tiki Ruff LPN - 08/23/2018 1:52 PM CDT Called pt and left VM to return call to discuss lab results. * Windy Christiansen MD - 08/23/2018 12:31 PM CDT Please call patient with test results The repeat FNA biopsy of left thyroid nodule was benign I did not receive her labs for TFT ordered at her last visit documented in this encounter Plan of Treatment Not on file documented as of this encounter Visit Diagnoses Not on filedocumented in this encounter Care Teams Cut Out Press Operator Relationship Specialty Start Date End Date Kevin Bowles MD PCP - General FAMILY PRACTICE 01/11/18 documented as of this encounter
--- OUTSIDE RECORDS SUMMARY | 2024-04-01 11:13 | XMS_ITS | Patient Health Summary ---
Author Organization [facility] Address [address] [facility] [place] [address] Care Team Providers Care Near East Archeology Professor Name Role Phone Kevin Bowles MD Primary Care Provider +1- [phone] Note from [facility],non-owned Affiliates and Associated Physician Practices is amultiple site organization consisting of ambulatory clinics and hospital sitesin [place], [place], [place] and [place]. This disclosure is being madepursuant to the Care Everywhere program and may not contain all information available regarding this patient. Last updated 17.[facility] Allergies * Ketorolac(Anaphylaxis) -High Criticality Medications * Be aware that medications may not be up to date on this document. Alwaysverify current medications with the patient. * ibuprofen (ADVIL) 200 MG capsule Take 200 mg by mouth 4 times daily as needed for Pain * cloNIDine (CATAPRES) 0.2 MG tablet Take 0.2 mg by mouth 2 times daily * montelukast (SINGULAIR) 10 MG tablet Take 10 mg by mouth at bedtime * traZODone (DESYREL) 50 MG tablet Take 50 mg by mouth at bedtime * levothyroxine (SYNTHROID) 175 MCG tablet Take 175 mcg by mouth daily before breakfast * methotrexate 2.5 MG tablet Take by mouth every 7 days * ondansetron (ZOFRAN) 8 MG tablet Take 8 mg by mouth every 6 hours as needed for Nausea/Vomiting * hydroxychloroquine (PLAQUENIL) 200 MG tablet Take by mouth once daily * predniSONE (DELTASONE) 20 MG tablet(Started 03/13/2021) Take three tablets PO once daily x 3 days, 2 tablets daily x 3 days, one tablet daily x 2 days Reasons: RA flare Social History Tobacco Use Types Packs/Day Years Used Date Smoking Tobacco: Never Smokeless Tobacco: Never Tobacco Cessation:Counseling Given: No Sex and Gender Information Value Date Recorded Sex Assigned at Not on file Gender Identity Not on file Sexual Orientation Not on file Last Filed Vital Signs Vital Sign Reading Time Taken Comments Blood Pressure 138/92 03/13/2021 10:23 AM PROMOTION MANAGER Pulse 65 03/13/2021 10:11 AM PROMOTION MANAGER Temperature 36.7 ??C (98 ??F) 03/13/2021 10:11 AM PROMOTION MANAGER Respiratory Rate 18 03/13/2021 10:11 AM PROMOTION MANAGER Oxygen Saturation 98% 03/13/2021 10:11 AM PROMOTION MANAGER Inhaled Oxygen Concentration - - Weight 136.1 kg (300 lb) 03/13/2021 10:11 AM PROMOTION MANAGER Height 162.6 cm (5' 4 ) 03/13/2021 10:11 AM PROMOTION MANAGER Body Mass Index 51.49 03/13/2021 10:11 AM PROMOTION MANAGER Procedures * XR HAND BILAT 2VW(Performed 06/03/2015) Performed for Pain in left foot, Low back pain, unspecified back pain laterality, with sciatica presence unspecified, Shoulder joint pain, unspecified laterality, Knee pain, unspecified laterality, Other synovitis and tenosynovitis, left hand * XR KNEE RIGHT 2VW OR LESS(Performed 06/03/2015) Performed for Pain in left foot, Low back pain, unspecified back pain laterality, with sciatica presence unspecified, Shoulder joint pain, unspecified laterality, Knee pain, unspecified laterality * XR SHOULDER RIGHT 2VW OR MORE(Performed 06/03/2015) Performed for Pain in left foot, Low back pain, unspecified back pain laterality, with sciatica presence unspecified, Shoulder joint pain, unspecified laterality * XR LUMBAR SPINE 2 OR 3VW(Performed 06/03/2015) Performed for Pain in left foot, Low back pain, unspecified back pain laterality, with sciatica presence unspecified * XR SI JOINTS 3VW OR MORE(Performed 06/03/2015) Performed for Pain in left foot, Low back pain, unspecified back pain laterality, with sciatica presence unspecified * XR FOOT BILAT 2VW(Performed 06/03/2015) Performed for Pain in left foot Results * XR HANDS BILATERAL 2 VIEWS (06/03/2015 3:48 PM CDT) Anatomical Region Laterality Modality Wrist / Hand, Upper Extremity Ra diographic Imaging 06/03/2015 4:20 PM CDT Impressions 06/03/2015 4:24 PM CDT Normal joint spaces of both hands. Prior amputation of the left ring finger at the level of the middle phalanx. Mild bilateral mid foot osteoarthritis and bilateral heel spurs. Narrative 06/03/2015 4:24 PM CDT Examination: 1. Bilateral feet 2 views 2. Bilateral hands 2 views History: Bilateral hand and foot pain Findings: 2 views of both feet were performed without prior comparison. Left forefoot joint spaces appear normal. No metatarsal head erosion is noted. There is mild left mid foot osteoarthritis. There is a small left heel spur. Right forefoot joint spaces appear preserved. There is mild right midfoot osteoarthritis and a small right heel spur. 2 views of both hands were performed. There is been prior amputation of the left ring finger at the level of the middle phalanx. Joint spaces of both hands appear preserved. No definite erosion is seen. Procedure Note Wilfred Loza MD - 06/03/2015 Examination: 1. Bilateral feet 2 views 2. Bilateral hands 2 views History: Bilateral hand and foot pain Findings: 2 views of both feet were performed without prior comparison. Left forefoot joint spaces appear normal. No metatarsal head erosion is noted. There is mild left mid foot osteoarthritis. There is a small left heel spur. Right forefoot joint spaces appear preserved. There is mild right midfoot osteoarthritis and a small right heel spur. 2 views of both hands were performed. There is been prior amputation of the left ring finger at the level of the middle phalanx. Joint spaces of both hands appear preserved. No definite erosion is seen. IMPRESSION Normal joint spaces of both hands. Prior amputation of the left ring finger at the level of the middle phalanx. Mild bilateral mid foot osteoarthritis and bilateral heel spurs. Gomez Snider MD DIAGNOSTIC IMAGING O RDERABLES * XR FOOT BILAT 2 VIEWS (06/03/2015 3:48 PM CDT) Anatomical Region Laterality Modality Lower Extremity, Ankle / Foot Ra diographic Imaging 06/03/2015 4:20 PM CDT Impressions 06/03/2015 4:24 PM CDT Normal joint spaces of both hands. Prior amputation of the left ring finger at the level of the middle phalanx. Mild bilateral mid foot osteoarthritis and bilateral heel spurs. Narrative 06/03/2015 4:24 PM CDT Examination: 1. Bilateral feet 2 views 2. Bilateral hands 2 views History: Bilateral hand and foot pain Findings: 2 views of both feet were performed without prior comparison. Left forefoot joint spaces appear normal. No metatarsal head erosion is noted. There is mild left mid foot osteoarthritis. There is a small left heel spur. Right forefoot joint spaces appear preserved. There is mild right midfoot osteoarthritis and a small right heel spur. 2 views of both hands were performed. There is been prior amputation of the left ring finger at the level of the middle phalanx. Joint spaces of both hands appear preserved. No definite erosion is seen. Procedure Note Wilfred Loza MD - 06/03/2015 Examination: 1. Bilateral feet 2 views 2. Bilateral hands 2 views History: Bilateral hand and foot pain Findings: 2 views of both feet were performed without prior comparison. Left forefoot joint spaces appear normal. No metatarsal head erosion is noted. There is mild left mid foot osteoarthritis. There is a small left heel spur. Right forefoot joint spaces appear preserved. There is mild right midfoot osteoarthritis and a small right heel spur. 2 views of both hands were performed. There is been prior amputation of the left ring finger at the level of the middle phalanx. Joint spaces of both hands appear preserved. No definite erosion is seen. IMPRESSION Normal joint spaces of both hands. Prior amputation of the left ring finger at the level of the middle phalanx. Mild bilateral mid foot osteoarthritis and bilateral heel spurs. Gomez Snider MD DIAGNOSTIC IMAGING O RDERABLES * XR KNEE 1 OR 2 VW RIGHT (06/03/2015 3:48 PM CDT) Anatomical Region Laterality Modality Lower Extremity Radiographic Columba ging 06/03/2015 4:07 PM CDT Impressions 06/03/2015 5:02 PM CDT Unremarkable study. Edited by Belkis Whitley on 06/03/2015 5:00 PM Narrative 06/03/2015 5:02 PM CDT RIGHT KNEE 2 VIEWS HISTORY: Knee pain. Two views of the knee demonstrate no fracture or dislocation. Joint space is well-maintained. Procedure Note Karson Schmid MD - 06/03/2015 RIGHT KNEE 2 VIEWS HISTORY: Knee pain. Two views of the knee demonstrate no fracture or dislocation. Joint space is well-maintained. IMPRESSION Unremarkable study. Edited by Belkis Whitley on 06/03/2015 5:00 PM Gomez Snider MD DIAGNOSTIC IMAGING O RDERABLES * XR SHOULDER 2+ VW RIGHT (06/03/2015 3:48 PM CDT) Anatomical Region Laterality Modality Upper Extremity Radiographic Columba ging 06/03/2015 4:16 PM CDT Impressions 06/03/2015 5:01 PM CDT Unremarkable study. Edited by Ashli Evans on 06/03/2015 4:56 PM Narrative 06/03/2015 5:01 PM CDT RIGHT SHOULDER TWO VIEWS History: Pain. Two views of the shoulder demonstrate no fracture or dislocation. Procedure Note Karson Schmid MD - 06/03/2015 RIGHT SHOULDER TWO VIEWS History: Pain. Two views of the shoulder demonstrate no fracture or dislocation. IMPRESSION Unremarkable study. Edited by Ashli Evans on 06/03/2015 4:56 PM Gomez Snider MD DIAGNOSTIC IMAGING O RDERABLES * XR SACROILIAC JOINTS 3+ VW (06/03/2015 3:48 PM CDT) Anatomical Region Laterality Modality Pelvis, Lower Extremity Radiogra phic Imaging 06/03/2015 4:18 PM CDT Impressions 06/03/2015 5:01 PM CDT Unremarkable study. Edited by Ashli Evans on 06/03/2015 4:58 PM Narrative 06/03/2015 5:01 PM CDT SACROILIAC JOINTS THREE VIEWS History: Pain. AP and oblique views of the SI joints demonstrate well maintained joint space. There is no fusion, erosion or sclerosis. Procedure Note Karson Schmid MD - 06/03/2015 SACROILIAC JOINTS THREE VIEWS History: Pain. AP and oblique views of the SI joints demonstrate well maintained joint space. There is no fusion, erosion or sclerosis. IMPRESSION Unremarkable study. Edited by Ashli Evans on 06/03/2015 4:58 PM Gomez Snider MD DIAGNOSTIC IMAGING O RDERABLES * XR LUMBAR SPINE 2 OR 3 VW (06/03/2015 3:48 PM CDT) Anatomical Region Laterality Modality Spine Radiographic Columba ging 06/03/2015 4:18 PM CDT Impressions 06/03/2015 4:19 PM CDT Unremarkable study. Narrative 06/03/2015 4:19 PM CDT Lumbosacral spine 2 views. History: Pain. AP and lateral views of lumbosacral spine show normal vertebral heights and interspace heights. Pedicles are intact. Alignment is maintained. Procedure Note Karson Schmid MD - 06/03/2015 Lumbosacral spine 2 views. History: Pain. AP and lateral views of lumbosacral spine show normal vertebral heights and interspace heights. Pedicles are intact. Alignment is maintained. IMPRESSION Unremarkable study. Gomez Snider MD DIAGNOSTIC IMAGING O [place] Care Teams Near East Archeology Professor Relationship Specialty Start Date End Date Kevin Bowles MD [address] [place] [address] [phone] PCP - General Family Medicine 06/03/15
--- OUTSIDE RECORDS SUMMARY | 2024-04-01 11:13 | XMS_ITS | Encounter Summary ---
Author Organization [facility] Address [address] [place] [address]. [place], [place] [id number] [place] [id number] Care Team Providers Care Director Of Community Education Name Role Phone Unavailable Primary Care Provider Unavailabl e Encounter Details Date Type Department Care Team (Latest Contact Info) Description 09/06/2017 Abstract [facility] Windy Eason MD [address] [facility] [facility] [address], [place] [address] Social History Tobacco Use Types Packs/Day Years [...]
--- OUTSIDE RECORDS SUMMARY | 2024-04-01 11:13 | XMS_ITS | Encounter Summary ---
Author Organization [facility] Address [address] [place] [address]. [place] [address] [place] [address] Care Team Providers Care Rag Production Worker Name Role Phone Kevin Bowles MD Primary Care Provider +1- [phone] Encounter Details Date Type Department Care Team (Latest Contact Info) Description 12/31/2017 Abstract [facility] Medical Group Windy Eason MD [address] [facility] [address], [place] [address] Social History Tobacco Use Types Packs/Day Years [...] Procedure Name Priority Date/Time Associated Diagnosis Comments FREE T3 Routine 12/31/2017 1:52 PM CDT PROTHROMBIN TIME, VENOUS Routine 12/31/2017 1:52 PM CDT CBC W/DIFF AUTOMATED Routine 12/31/2017 1:52 PM CDT THYROXINE, FREE (FT4) Routine 12/31/2017 1:52 PM CDT THYROID STIM HORMONE TSH Routine 12/31/2017 1:52 PM CDT VITAMIN D, 25 OH Routine 12/31/2017 1:52 PM CDT documented in this encounter Results * THYROXINE, FREE (FT4) (12/31/2017 1:52 PM CDT) FREE T4 1.3 0.8 - 1.8 ng/dL [facility] TO EPIC CONVERSION Comment: Result Comment: Test Performed at: [facility] [id number] [place] [address] ??[phone] ? KYMBERLY JETER DO,MPH 12/31/2017 1:52 PM CDT 12/31/2017 1:52 PM CDT Narrative [facility] TO EPIC CONVERSION - 01/01/2018 6:00 AM CDT Result Communication: Call patient with results Windy Christiansen MD LABORATORY Final Resul t [facility] TO EPIC CONVERSION * THYROID STIM HORMONE, TSH (12/31/2017 1:52 PM CDT) TSH 2.68 mIU/L [facility] T O EPIC CONVERSION Comment: Result Comment: ? Reference Range ?> or = 20 Years ??0.40-4.50 ? Ranges ?First trimester ?0.26-2.66 ?Second trimester ?? 0.55-2.73 ?Third trimester ?0.43-2.91 Test Performed at: [facility] [address] [place], [place] ??[phone] ? KYMBERLY JETER DO,MPH 12/31/2017 1:52 PM CDT 12/31/2017 1:52 PM CDT Narrative [facility] TO EPIC CONVERSION - 01/01/2018 6:00 AM CDT Result Communication: Call patient with results Windy Christiansen MD LABORATORY Final Resul t Performing Organization Address [facility] Phone Number [facility] TO EPIC CONVERSION * PROTIME/INR, VENOUS (12/31/2017 1:52 PM CDT) INR 1.0 [facility] T O EPIC CONVERSION Comment: Result Comment: Reference Range ? 0.9-1.1 Moderate-intensity Warfarin Therapy 2.0-3.0 Higher-intensity Warfarin Therapy ?? 3.0-4.0 PROTIME 10.4 9.0 - 11.5 sec [facility] TO EPIC CONVERSION Comment: Result Comment: ?? For more information on this test, go to: http://education.VTEX/faq/KXN355 Test Performed at: [facility] [address] [place] [address] ??[phone] ? KYMBERLY JETER DO,MPH 12/31/2017 1:52 PM CDT 12/31/2017 1:52 PM CDT Narrative [facility] TO EPIC CONVERSION - 01/01/2018 6:00 AM CDT Result Communication: Call patient with results Windy Christiansen MD LABORATORY Final Resul t Performing Organization Address [facility] Phone Number [facility] TO EPIC CONVERSION * VITAMIN D, 25 OH (12/31/2017 1:52 PM CDT) VITAMIN D 25 HYDROXY TOTAL S/P/B 31 30 - 100 ng/mL [facility] TO EPIC CONVERSION Comment: Result Comment: Vitamin D Status ? 25-OH Vitamin D: Deficiency: ?<20 ng/mL Insufficiency: ? 20 - 29 ng/mL Optimal: ? > or = 30 ng/mL For 25-OH Vitamin D testing on patients on D2-supplementation and patients for whom quantitation of D2 and D3 fractions is required, the QuestAssureD(TM) 25-OH VIT D, (D2,D3), LC/MS/MS is recommended: order code 04814 (patients >2yrs). For more information on this test, go to: http://education.VTEX/faq/ECJ268 (This link is being provided for informational/educational purposes only.) REPORT COMMENT: FASTING:NO Test Performed at: [facility] [address] [place] ??[phone] ? KYMBERLY JETER DO,MPH 12/31/2017 1:52 PM CDT 12/31/2017 1:52 PM CDT Narrative [facility] TO EPIC CONVERSION - 01/01/2018 6:00 AM CDT Result Communication: Call patient with results Windy Christiansen MD LABORATORY Final Resul t Performing Organization Address [facility] de Phone Number [facility] TO EPIC CONVERSION * FREE T3 (12/31/2017 1:52 PM CDT) Pathologist [facility] FREE T3 2.8 2.3 - 4.2 pg/mL [facility] TO EPIC CONVERSION Comment: Result Comment: Test Performed at: [facility] [address] [place] ??[phone] ? KYMBERLY JETER DO,MPH 12/31/2017 1:52 PM CDT 12/31/2017 1:52 PM CDT Narrative [facility] TO EPIC CONVERSION - 01/01/2018 6:00 AM CDT Result Communication: Call patient with results Windy Christiansen MD LABORATORY Final Resul t Performing Organization Address [facility] Co de Phone Number [facility] TO EPIC CONVERSION * (ABNORMAL) CBC W/DIFF AUTOMATED (12/31/2017 1:52 PM CDT) [facility] WBC 6.4 3.8 - 10.8 [facility] TO EPIC CONVERSION Comment:Result Comment: UNIT S: Thousand/uL Red Blood Cell Count 4.38 3.80 - 5.10 Million/uL [facility] TO EPIC CONVERSION HGB 11.8 11.7 - 15.5 g/dL [facility] TO EPIC CONVERSION HCT 36.0 35.0 - 45.0 % [facility] TO EPIC CONVERSION MCV 82.2 80.0 - 100.0 fL [facility] TO EPIC CONVERSION MCH (QHPE) 26.9(L) 27.0 - 33.0 pg [facility] TO EPIC CONVERSION MCHC 32.8 32.0 - 36.0 g/dL [facility] TO EPIC CONVERSION RDW (QHPE) 16.7(H) 11.0 - 15.0 % [facility] TO EPIC CONVERSION PLT 282 140 - 400 [facility] T O EPIC CONVERSION Comment:Result Comment: UNIT S: Thousand/uL MPV 9.2 7.5 - 12.5 fL [facility] TO EPIC CONVERSION ABS. NEUTROPHILS 3629 1500 - 7800 cells/uL [facility] TO EPIC CONVERSION ABS. LYMPHOCYTES 2067 850 - 3900 cells/uL [facility] TO EPIC CONVERSION ABS. MONOCYTES 582 200 - 950 cells/uL [facility] TO EPIC CONVERSION ABS. EOSINOPHILS 109 15 - 500 cells/uL [facility] TO EPIC CONVERSION ABS. BASOPHILS 13 0 - 200 cells/uL [facility] TO EPIC CONVERSION SEG NEUTROPHILS 56.7 % [facility] ROUP TO EPIC CONVERSION LYMPHOCYTES 32.3 % [facility] TO EPIC CONVERSION MONOCYTES 9.1 % [facility] T O EPIC CONVERSION EOSINOPHILS 1.7 % [facility] TO EPIC CONVERSION BASOPHILS 0.2 % [facility] T O EPIC CONVERSION Comment: Result Comment: Test Performed at: [facility] [address] ??[phone] ? KYMBERLY JETER DO,MPH 12/31/2017 1:52 PM CDT 12/31/2017 1:52 PM CDT Narrative [facility] TO EPIC CONVERSION - 01/01/2018 6:00 AM CDT Result Communication: Call patient with results us Windy Christiansen MD LABORATORY Final Resul t [facility] TO EPIC CONVERSION documented in this encounter Visit Diagnoses Not on filedocumented in this encounter Care Teams Rag Production Worker Relationship Specialty Start Date End Date Kevin Bowles MD PCP - General FAMILY PRACTICE 01/11/18 documented as of this encounter
--- OUTSIDE RECORDS SUMMARY | 2024-04-01 11:13 | XMS_ITS | Encounter Summary ---
Author Organization [facility] Address [address] [place] [address]. [place], [place] [id number] [place] [address] Care Team Providers Care Transcripter Name Role Phone Kevin Bowles MD Primary Care Provider +1- [phone] Reason for Referral * Imaging (Routine) - Closed Specialty Diagnoses / Procedures Referred By Marc kahn Referred To Contact Diagnoses Multiple thyroid nodules Procedures US GD THYROID FINE NDL ASPIR Windy Eason MD Phone: tel: fax: Referral ID Status Reason Start Date Expiration Date Visits Re quested Visits Authorized [id number] Closed 01/06/2018 02/05/2019 1 1 Reason for Visit * Imaging (Routine) - Closed Specialty Diagnoses / Procedures Referred By Marc kahn Referred To Contact Diagnoses Multiple thyroid nodules Procedures US GD THYROID FINE NDL ASPIR Windy Eason MD Phone: tel: fax: Referral ID Status Reason Start Date Expiration Date Visits Re quested Visits Authorized [id number] Closed 01/06/2018 02/05/2019 1 1 Encounter Details Date Type Department Care Team (Late st Contact Info) Description 01/11/2018 11:19 AM CDT - 01/11/2018 11:59 PM CDT Hospital Encounter [facility] [place], [place] [id number] Windy Eason MD [address] [facility] [place] [place] [address] Discharge Disposition: Home or Self Care (Routine [...] (two) times daily. 05/28/2017 vitamin D2, ergocalciferol, [address] UNITS capsule Take 1 capsule by mouth once a week. 12/14/2016 levothyroxine (SYNTHROID) 175 MCG tablet Take 1 tablet by mouth daily. 06/22/2017 06/10/2018 documented as of this encounter Plan of Treatment Not on file documented as of this encounter Procedures Procedure Name Priority Date/Time Associated Diagnosis Comments US GD THYROID FINE NDL ASPIR Routine 01/11/2018 2:38 PM CDT Multiple thyroid nodules Nontoxic multinodular goiter documented in this encounter Results * US GD THYROID FINE NDL ASPIR (01/11/2018 2:38 PM CDT) Anatomical Region Laterality Modality Neck Ultrasound, Radi ographic Imaging 01/11/2018 3:33 PM CDT Narrative 01/11/2018 3:34 PM CDT EXAMINATION: Thyroid ultrasound guided biopsy Exam Date/Time: 01/11/2018 11:19 AM Reason For Exam: ??Multiple thyroid nodules ?? Comparison: 09/13/2017 thyroid ultrasound TECHNIQUE: ??After explaining the procedure to the patient and performing patient education inclusive of relaying potential side effects including but not limited to infection, bleeding, bodily harm, and the need for subsequent procedures, written informed consent was obtained. The patient was placed in supine position on [facility]. ??A timeout was performed during which patient identity, [...] Immediate bedside pathology was adequate. IMPRESSION: 1. ??Technically successful ultrasound-guided FNA of 2 left and one right thyroid nodules. ??No immediate complications. Interpreted By: Mike Cruz MD, 01/11/2018 3:33 PM Procedure Note Mike Cruz MD - 01/11/2018 EXAMINATION: Thyroid ultrasound guided biopsy Exam Date/Time: 01/11/2018 11:19 AM Reason For Exam: Multiple thyroid nodules Comparison: 09/13/2017 thyroid ultrasound TECHNIQUE: After explaining the procedure to the patient and performingpatient education inclusive of relaying potential side effects includingbut not limited to infection, bleeding, bodily harm, and the need forsubsequent procedures, written informed consent was obtained. The patientwas placed in supine position on [facility]. A timeout was performedduring which patient identity, procedure to be performed, and patientallergies were confirmed. The anterior neck was evaluated with ultrasoundfor determination of appropriate skin entry location. The anterior neckwas then prepped and draped in usual sterile fashion. Local anesthesia wasprovided by injection of 1% lidocaine solution totaling approximately 14cc. Utilizing ultrasound guidance, 11 fine needle aspirations wereobtained from various portions of 2 left-sided and one right-sided thyroidnodules. The patient tolerated the procedure well. There were no immediatecomplications. Immediate bedside pathology was adequate. IMPRESSION: 1. Technically successful ultrasound-guided FNA of 2 left and one rightthyroid nodules. No immediate complications. Interpreted By: Mike Cruz MD, 01/11/2018 3:33 PM us Windy Christiansen MD ULTRASOUND Final Resul t documented in this encounter Visit Diagnoses Diagnosis Multiple thyroid nodules Nontoxic multinodular goiter documented in this encounter Administered Medications Inactive Administered Medications - up to 3 most recent administrations Medication Order MAR Action Action Date Dose Rate Site lidocaine (XYLOCAINE) 1 % injection SOLN 15 mL 15 mL, Intradermal, Once, 1 dose, On Wed01/11/18 at 1345 Given 01/11/2018 1:45 PM CDT 15 mLs documented in this encounter Care Teams Transcripter Relationship Specialty Start Date End Date Kevin Bowles MD PCP - General FAMILY PRACTICE 01/11/18 documented as of this encounter
--- OUTSIDE RECORDS SUMMARY | 2024-04-01 11:13 | XMS_ITS | Encounter Summary ---
Author Organization [facility] Address [address] [place] [address]. [place] [address] [place] [address] Care Team Providers Care Latcher Name Role Phone Kevin Bowles MD Primary Care Provider +1- [phone] Reason for Visit * Reason Comments Lab (SCAN) [facility] (INCLUDE S DIFF/PLT) Encounter Details Date Type Department Care Team ([facility] Contact Info) Description 06/22/2018 Scan HEALTH INFO SRVCS Scanned, Documents Lab (SCAN) ([facility] CBC (INCLUDES DIFF/PLT)) Social History Tobacco Use Types Packs/Day Years [...] Procedure Name Priority Date/Time Associated Diagnosis Comments OUTSIDE LAB (SCAN ORDER) Routine 06/22/2018 documented in this encounter Results * OUTSIDE LAB (06/22/2018) 06/22/2018 us Documents Scanned SCANNING Final Result documented in this encounter Visit Diagnoses Not on filedocumented in this encounter Care Teams Latcher Relationship Specialty Start Date End Date Kevin Bowles MD PCP - General FAMILY PRACTICE 01/11/18 documented as of this encounter
--- OUTSIDE RECORDS SUMMARY | 2024-04-01 11:13 | XMS_ITS | Encounter Summary ---
Author Organization [facility] Address [address] [place] [address]. [place] [address] [place] [address] Care Team Providers Care Driver Wheelchair Name Role Phone Unavailable Primary Care Provider Unavailabl e Encounter Details Date Type Department Care Team (Late st Contact Info) Description 06/22/2017 Abstract [facility] Medical [facility] - [address], [address] [place] [address] Windy Eason MD [address] [place] [address] [address], [place] [address] Social History Tobacco Use Types Packs/Day Years Used Date Smoking Tobacco: Never Assessed Comments Unknown Sex and Gender Information Value Date Recorded Sex Assigned at Not on file Legal Sex Female 9:36 PM CDT Gender Identity Not on file Sexual Orientation Not on file documented as of this encounter Last Filed Vital Signs Vital Sign Reading Time Taken Comments Blood Pressure 110/80 06/22/2017 1:32 PM CDT Pulse 86 06/22/2017 1:31 PM CDT Temperature - - Respiratory Rate - - Oxygen Saturation - - Inhaled Oxygen Concentration - - Weight 135.2 kg (298 lb) 06/22/2017 1:31 PM CDT Height 162.6 cm (5' 4 ) 06/22/2017 1:31 PM CDT Body Mass Index 51.15 06/22/2017 1:31 PM CDT documented in this encounter Progress Notes * Windy Christiansen MD - 06/22/2017 1:00 PM CDT Reason For Visit New Patient Visit Chief Complaint zahra thyroiditis History of Present Illness HPI Free Text: 47 yo F with seronegative autoimmune arthritis following with carton catcher in [place], zahra thyroiditis here to establish care diagnosed with zahra thyroiditis at the age of 17 did not start medication until the age of 26 never had any biopsy on her thyroid last US was 10 years ago she is currently on levothyroxin 175 mcg daily has been on this dose for about 20 years takes it in the morning on empty stomach waits for 1h before eating anything no change in size of neck no dysphagia or dysphonia + heat intolerance in the last couple of years periods are currently irregular in the last 2 years energy decreased no tremors no palpitations except if having more caffeine no diarrhea or constipation + insomnia no mood swings weight stable started gaining weight in her 20's + hair loss recently + dry skin she is currently on vitamin d 50,000 IU weekly family hx paternal GM had Graves disease Review of Systems Constitutional: fatigue, but no fever and no chills. Eyes: no blurred vision. ENT: no sore throat and no hoarseness. Cardiovascular: no chest pain and no palpitations. Respiratory: no shortness of breath and no dry cough. Gastrointestinal: no abdominal pain, no nausea, no constipation, no vomiting and no diarrhea. Genitourinary: no urinary frequency. Musculoskeletal: diffuse joint pain. Integumentary skin lump. Psychiatric: insomnia. Neurological no headache and no dizziness. Endocrine hot flashes. Active Problems 1. 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 Inflammatory arthritis (714.9) (M19.90) 3. 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 Migraines (346.90) (G43.909) 5. Sjogren's disease (710.2) (M35.00) Past Medical History 1. History of vaginal [...] (Z82.61) Social History ?? Caffeine use (V49.89) (F15.90) ?? Never a smoker ?? No alcohol use Current Meds 1. CloNIDine HCl - 0.2 MG Oral Tablet; TAKE 1 TABLET AT BEDTIME; Therapy: 08Apr2017 to Recorded 2. Hydroxychloroquine Sulfate 200 MG Oral Tablet; Take 1 tablet twice daily; Therapy: 00Imr9491 to (Evaluate:16Feb2017) Recorded 3. Levothyroxine Sodium 175 MCG Oral Tablet; Take 1 tablet daily; Therapy: [id number] to (Evaluate:16Jun2017) Recorded 4. SulfaSALAzine 500 MG Oral Tablet Delayed Release; TAKE 3 TABLET Twice daily; Therapy: 28May2017 to (Evaluate:27Jun2017) Recorded 5. Vitamin D (Ergocalciferol) 83809 UNIT Oral Capsule; TAKE 1 CAPSULE Weekly; Therapy: 86Aid7529 to (Evaluate:10Jun2017) Recorded 6. Xiidra 5 % Ophthalmic Solution; 1 drop ou BID; Therapy: (Recorded:22Jun2017) to Recorded Allergies 1. Toradol IM SOLN Vitals Recorded: 22Jun2017 01:31PM Temperature 98.7 F Heart Rate 86 Respiration 20 O2 Saturation 98 Height 5 ft 4 in Weight 298 lb BMI Calculated 51.15 BSA Calculated 2.32 Systolic Sitting 110 Diastolic Sitting 80 Systolic Standing 108 Diastolic Standing 64 Physical Exam Constitutional General appearance: No acute [...] Normal. The thyroid was diffusely enlarged. Results/Data 8/28/17 Hb 10.8 12/18/16 TSH 1.24 02/2017 glucose 102 creat: 0.7 06/01/17 Hb 12.9 Assessment 1. 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 Ferritin; Status:Hold For - Exact Date,Manual Activation; Requested for:in 6 weeks; Perform:. [facility]; Due:22Jul2017;Ordered; For:Anemia; Ordered By:Windy Eason; 2. Iron Profile W TIBC; Status:Hold For - Exact Date,Manual Activation; Requested for:in 6 weeks; Perform: [facility]; Due:22Jul2017;Ordered; For:Anemia; Ordered By:Windy Eason; 3. Synthroid 175 MCG Oral Tablet (Levothyroxine Sodium); TAKE 1 TABLET BY MOUTH DAILY Rx By: Windy Eason; Dispense: 30 Days ; #:30 Tablet; Refill: 6; For: Zahra's thyroiditis; BRET = Y; Verified Transmission to [facility]; Last Updated By: [email or web address].in; 06/22/2017 2:03:29 PM 4. Compr Metabolic Prof ( CMP ); Status:Hold For - Exact Date,Manual Activation; Requested for:in 6 weeks; Perform: [facility]; Due:22Jul2017;Ordered; For:Zahra's thyroiditis; Ordered By:Windy Eason; 5. Free T4 ( Thyroxine ); Status:Hold For - Exact Date,Manual Activation; Requested for:in 6 weeks; Perform: [facility]; Due:22Jul2017;Ordered; For:Zahra's thyroiditis; Ordered By:Windy Eason; 6. Free Triiodothyronine ( T3 ); Status:Hold For - Exact Date,Manual Activation; Requested for:in 6 weeks; Perform:[facility]; Due:22Jul2017;Ordered; For:Zahra's thyroiditis; Ordered By:Windy Eason; 7. Lipid Profile; Status:Hold For - Exact Date,Manual Activation; Requested for:in 6 weeks; Perform:[facility]; Due:[id number];Ordered; For:Zahra's thyroiditis; Ordered By:Windy Eason; 8. Thyroid Stim Hormone ( TSH ); Status:Hold For - Exact Date,Manual Activation; Requested for:in 6 weeks; Perform:[facility]; Due:[id number];Ordered; For:Zahra's thyroiditis; Ordered By:Windy Eason; 9. US THYROID/PARATHYROID; Status:Hold For - Scheduling; Requested for:[id number]; Perform:[facility]; Due:22Jul2017;Ordered; For:Zahra's thyroiditis; Ordered By:Windy Eason; 10. Vitamin B12; Status:Hold For - Exact Date,Manual Activation; Requested for:in 6 weeks; Perform:[facility]; Due:22Jul2017;Ordered; For:Vitamin D deficiency; Ordered By:Windy Eason; 11. Follow-up visit in 6 months Outpatient Follow-up Status: Hold For - Scheduling Requested for: 22Jun2017 Ordered; For: Vitamin D deficiency; Ordered By: Windy Eason Performed: Due: [id number] 12. Vitamin D 25 - Hydroxy; Status:Hold For - Exact Date,Manual Activation; Requested for:in 6 weeks; Perform:[facility]; Due:22Jul2017;Ordered; For:Vitamin D deficiency; Ordered By:Windy Eason; 13. Levothyroxine Sodium 175 MCG Oral Tablet Rx By: JACQUELINE; Dispense: 0 Days ; #: Sufficient Tablet; Refill: 0; BRET = N; Record; Last Updated By: Windy Eason; 06/22/2017 2:02:19 PM - switch to synthroid 175 mcg daily - labs in 6 weeks - follow up in 6 months - thyroid US soon Discussion/Summary 47 yo F seen today to establish crae for Zahra thyroiditis she is currently on levothyroxin 175 mcg daily complains of fatigue, hair loss will switch to brand name synthroid 175 mcg daily labs in 6 weeks enlarged thyroid gland on exam will check US follow up in 6 months Signatures Electronically signed by : Windy Christiansen M.D.; Jun 27 2017 8:38AM LIGHTER (Author) documented in this encounter Plan of Treatment Not on file documented as of this encounter Visit Diagnoses Not on filedocumented in this encounter
--- OUTSIDE RECORDS SUMMARY | 2024-04-01 11:13 | XMS_ITS | Encounter Summary ---
Author Organization [facility] Address [address] [place] [address]. [place] [address] [place] [address] Care Team Providers Care Health Diagnostics Teacher Name Role Phone Kevin Bowles MD Primary Care Provider +1- [phone] Encounter Details Date Type Department Care Team (Latest Contact Info) Description 01/11/2018 Abstract [facility] Windy Eason MD [address] [facility] [address], [place] [address] Social History Tobacco Use Types Packs/Day Years [...] REPORT Patient Name: BLACK BUCKNER Med. Rec. #:[id number] : 1970 (Age: 47) Gender: F Physician(s): WINDY RANDALL Client: [facility] Location: [place] Billing #[id number] Copy To: Taken: 01/11/2018 Received: 01/11/2018 Reported: [...] additional biopsy after an appropriate time interval. if/01/12/2018 Electronically Signed Out By FIDENCIO RUDD Microscopic [...] from which one Thin Prep is made. mpw/if/ 8 Billing Fee Code(s): 91805(3), 09994(3) [facility] 01/11/2018 01/11/2018 Narrative [facility] TO EPIC CONVERSION - 01/11/2018 11:41 AM CDT Result Communication: Call patient with results us Windy Christiansen MD PATHOLOGY/CYTOLOGY ORDERABL ES Final Result [facility] TO EPIC CONVERSION documented in this encounter Visit Diagnoses Not on filedocumented in this encounter Care Teams Health Diagnostics Teacher Relationship Specialty Start Date End Date Kevin Bowles MD PCP - General FAMILY PRACTICE 01/11/18 documented as of this encounter
--- OUTSIDE RECORDS SUMMARY | 2024-04-01 11:13 | XMS_ITS | Encounter Summary ---
Author Organization [facility] Address [address] [place] [address] Care Team Providers Care Medical Doctor Md Name Role Phone Kevin Bowles MD Primary Care Provider +1- [phone] Encounter Details Date Type Department Care Team (Latest Contact Info) Description 06/03/2015 3:10 PM CDT - 06/03/2015 11:59 PM CDT Hospital Encounter [facility] [address] [place] [address] [address] [place] [address] Gomez Snider MD [address] [facility] [address] [place] [id number] Discharge Disposition: Home or Self Care Social History Tobacco Use Types Packs/Day Years Used Date Smoking Tobacco: Never Assessed Sex and Gender Information Value Date Recorded Sex Assigned at Not on file Gender Identity Not on file Sexual Orientation Not on file documented as of this encounter Plan of Treatment Not on file documented as of this encounter Procedures Procedure Name Priority Date/Time Associated Diagnosis Comments XR HAND BILAT 2VW Routine 06/03/2015 3:4 8 PM CDT Pain in left foot Low back pain, unspecified back pain laterality, with sciatica presence unspecified Shoulder joint pain, unspecified laterality Knee pain, unspecified laterality Other synovitis and tenosynovitis, left hand XR FOOT BILAT 2VW Routine 06/03/2015 3:4 8 PM CDT Pain in left foot XR KNEE RIGHT 2VW OR LESS Routine 06/03/2015 3:48 PM CDT Pain in left foot Low back pain, unspecified back pain laterality, with sciatica presence unspecified Shoulder joint pain, unspecified laterality Knee pain, unspecified laterality XR SHOULDER RIGHT 2VW OR MORE Routine 06/03/2015 3:48 PM CDT Pain in left foot Low back pain, unspecified back pain laterality, with sciatica presence unspecified Shoulder joint pain, unspecified laterality XR SI JOINTS 3VW OR MORE Routine 06/03/2015 3:48 PM CDT Pain in left foot Low back pain, unspecified back pain laterality, with sciatica presence unspecified XR LUMBAR SPINE 2 OR 3VW Routine 06/03/2015 3:48 PM CDT Pain in left foot Low back pain, unspecified back pain laterality, with sciatica presence unspecified documented in this encounter Results * XR HANDS BILATERAL 2 VIEWS [...] study. Gomez Snider MD DIAGNOSTIC IMAGING O RDERABLES [...] Gomez Snider MD DIAGNOSTIC IMAGING O RDERABLES documented in this encounter Visit Diagnoses Diagnosis Pain in left foot Pain in limb Low back pain, unspecified back pain laterality, with sciatica presence unspecified Shoulder joint pain, unspecified laterality Knee pain, unspecified laterality Other synovitis and tenosynovitis, left hand documented in this encounter Care Teams Medical Doctor Md Relationship Specialty Start Date End Date Keivn Bowles MD [address] [place] [phone] PCP - General Family Medicine 06/03/15 documented as of this encounter
--- OUTSIDE RECORDS SUMMARY | 2024-04-01 11:13 | XMS_ITS | Encounter Summary ---
Author Organization [facility] Address [address] [place] [address]. [place], [place] [address] [place] [address] Care Team Providers Care Sous Chef Kitchen Manager Name Role Phone Unavailable Primary Care Provider Unavailabl e Encounter Details Date Type Department Care Team (Latest Contact Info) Description 02/11/2015 [facility] Social History Tobacco [...]
--- OUTSIDE RECORDS SUMMARY | 2024-04-01 11:13 | XMS_ITS | Encounter Summary ---
Author Organization [facility] Address [address] [place] [address]. [place], [place] [address] [place] [address] Care Team Providers Care A And P Mechanic Name Role Phone Unavailable Primary Care Provider Unavailabl e Encounter Details Date Type Department Care Team (Latest Contact Info) Description 06/29/2017 Abstract [facility] Social History [...]
--- OUTSIDE RECORDS SUMMARY | 2024-04-01 11:13 | XMS_ITS | Encounter Summary ---
Author Organization [facility] Address [address] [place] [address]. [place] [address] [place] [address] Care Team Providers Care Drip Molder Name Role Phone Kevin Bowles MD Primary Care Provider [phone]- [phone] Reason for Visit * Reason Comments Rash Encounter Details Date Type Department Care Team (Late st Contact Info) Description 02/05/2024 11:45 PM DUCK FARMER - 02/05/2024 11:51 PM DUCK FARMER Emergency [facility] [place] [address] Dorina Hebert PA [address] [place] [id number] Rash Discharge Disposition: Home or Self Care [...] Comments Blood Pressure 119/61 02/05/2024 11:06 PM DUCK FARMER Pulse 66 02/05/2024 11:06 PM DUCK FARMER Temperature 36.9 ??C (98.5 ??F) 02/05/2024 1 1:06 PM DUCK FARMER Respiratory Rate 20 02/05/2024 11:0 6 PM DUCK FARMER Oxygen Saturation 98% 02/05/2024 11: 06 PM DUCK FARMER Inhaled Oxygen Concentration - - Weight 110.8 kg (244 lb 4.3 oz) 024 11:06 PM DUCK FARMER Height 162.6 cm (5' 4 ) 02/05/2024 11:0 6 PM DUCK FARMER Body Mass Index 41.93 02/05/2024 11:06 PM DUCK FARMER documented in this encounter Discharge Instructions * Discharge Instructions* PIERRE Bernal - 02/05/2024 11:23 PM DUCK FARMER Use over the counter calamine lotion, oatmeal baths, or Aveeno lotion for itch relief. Avoid scratching the rash as this can open the area for infection. Continue taking your antibiotic as prescribed. If your symptoms persist or worsen, please return to the ER. Thank you for allowing me to care for you today. I have attached some suggested discharge instructions for you to use to aid in your recovery. Please take any medications prescribed to you as directed. If your symptoms are not improving or are significantly worsening, please return to the ER for further evaluation and treatment. Thank you, Dorina Hebert PA-C ADDITIONAL DISCHARGE INFORMATION: Emergency rooms (ER) and urgent cares (UC) provide medical screening exams and initial stabilizing treatment of emergency medical conditions. Medicine is an inexact science and many conditions cannotbe diagnosed or completely treated during a single ER visit. Your treating healthcare provider(s) today feel your condition has been stabilized so further evaluation and treatment as an outpatient isreasonable. Emergency care does not substitute for complete, ongoing, or follow-up care by your primary care physician or it solutions sales consultant. Please mention to your follow-up physician that you were in the emergency department and request that they review your labs and/or imaging to ensure all findings are followed up on. FARMER documented in this encounter Medications at Time of Discharge acetaminophen (TYLENOL) 500 MG tablet Take 1 tablet by mouth. cloNIDine 0.2 MG tablet Take 1 tablet by mouth. 04/08/2017 diphenhydrAMINE (BENADRYL) 25 MG capsule folic acid 1 MG tablet Take 1 mg by mouth daily. 05/31/2018 hydroxychloroqui ne 200 MG tablet Take 1 tablet by [...] Take 50 mg by mouth as needed. triamcinolone (KENALOG) 0.1 % cream Apply topically 2 (two) times daily. 45 g 02/05/2024 vitamin D2, ergocalciferol, 65483 UNITS capsule Take 1 capsule by mouth once a week. 12/14/2016 documented as of this encounter ED Notes * Tangela Cummins RN - 02/05/2024 11:50 PM CST Provider discussed today's findings with the patient. The patient has been given information regarding their treatment, follow up and concerning symptoms for which they should seek urgent or emergentattention. All questions answered. Pt ambulated out of ED with all personal belongings. FARMER * PIERRE Bernal - 02/05/2024 11:24 PM CST [place], [place] EMERGENCY DEPARTMENT ENCOUNTER HISTORICAL INFORMATION Primary Care Doctor: Kevin Bowles MD Patient information was obtained primarily from the patient, nursing notes. History/Exam limitations: None Provider at Bedside Date/Time Event User Comments 02/05/24 6698 Provider at Bedside Assessing Patient DORINA HEBERT -- CHIEF COMPLAINT Rash Chief Complaint Patient presents with Rash HPI Monica Buckner is a 53-year-old female who presents with rash to bilateral arms that started yesterday. States she has a rash to her chest that became infected and she was started on keflex, but she reports the rash started before taking the abx. No new soaps, detergents, lotions, medications, clothing. States the rash doesn't itch or hurt. No medications or topical treatment attempted. Denies any SOB or throat swelling sensation. Denies any lip, tongue, throat edema. Patient states she is on immunosuppressants. H/o eczema PAST MEDICAL HISTORY Past Medical History: Diagnosis Date Anemia Anemia Disease of thyroid gland Hannah's thyroiditis Inflammatory arthritis Migraines Multiple thyroid nodules Multiple thyroid nodules Neck pain Paresthesia of both hands Parotid mass Rheumatoid arthritis ([facility]) Seasonal allergies Sicca ([facility]) Sjogren's disease ([facility]) Vitamin D deficiency SURGICAL HISTORY Past Surgical History: Procedure Laterality Date ADENOIDECTOMY CARPAL TUNNEL RELEASE Bilateral CHOLECYSTECTOMY FOREARM/WRIST SURGERY UNLISTED Left HAND/FINGER SURGERY UNLISTED Left joint KNEE SURGERY Right removal of ACL cyst TONSILLECTOMY CURRENT MEDICATIONS No current facility-administered medications for this encounter. Current Outpatient Medications: triamcinolone (KENALOG) 0.1 % cream, Apply topically 2 (two) times daily., Disp: 45 g, Rfl: 0 acetaminophen (TYLENOL) 500 MG tablet, Take 1 tablet by mouth., Disp: , Rfl: cloNIDine 0.2 MG tablet, Take 1 tablet by mouth., Disp: , Rfl: diphenhydrAMINE (BENADRYL) 25 MG capsule, , Disp: , Rfl: folic acid 1 MG tablet, Take 1 mg by mouth daily., Disp: , Rfl: hydroxychloroquine 200 MG tablet, Take 1 tablet by mouth 2 (two) times daily., Disp: , Rfl: ibuprofen (ADVIL) 200 MG tablet, Take 1 tablet by mouth., Disp: , Rfl: lifitegrast (XIIDRA) 5 % ophthalmic solution, , Disp: , Rfl: methotrexate 2.5 MG tablet, TAKE 6 TABLETS BY MOUTH ONCE WEEKLY, Disp: , Rfl: ondansetron 4 MG tablet, Once a week, Disp: , Rfl: pseudoephedrine (SUDAFED 12 HOUR) 120 MG 12 hr tablet, , Disp: , Rfl: sulfaSALAzine 500 MG delayed release tablet, Take 3 tablets by mouth 2 (two) times daily., Disp: , Rfl: trazodone 50 MG tablet, Take 50 mg by mouth as needed., Disp: , Rfl: vitamin D2, ergocalciferol, 13638 UNITS capsule, Take 1 capsule by mouth once a week., Disp: , Rfl: ALLERGIES Review of patient's allergies indicates: Allergen Reactions Ketorolac Swelling tongue numbness and swelling Adhesive [Tape] Rash FAMILY HISTORY No family history on file. SOCIAL HISTORY Social History Socioeconomic History Marital status: Tobacco Use Smoking status: Never Smokeless tobacco: Never Substance and Sexual Activity Alcohol use: No Drug use: No REVIEW OF SYMPTOMS provided by: Patient General: No chills, fever, fatigue. Skin: + rash Physical Exam VITAL SIGNS: Filed Vitals: 02/05/24 2306 BP: 119/61 Pulse: 66 Resp: 20 Temp: 98.5 ??F (36.9 ??C) TempSrc: Oral SpO2: 98% Weight: 110.8 kg (244 lb 4.3 oz) Height: 1.626 m (5' 4 ) General: Awake and alert. Well nourished. Non-toxic appearing. No acute distress Head: Normocephalic. Atraumatic. Skin: Warm, dry. Good skin turgor. Mild erythematous, slightly raised rash noted to bilateral arms without vesicles or pustules. Non-pruritic, non-tender. No streaking. Erythematous rash with few small, scabbed lesions noted to chest without drainage or streaking Eyes: Sclera normal. Conjunctiva normal. Lids and lashes normal. Lens normal. EOMs within normal limit. Ears: Normal external ears bilaterally. Hearing intact. Nose: Nose normal. No active discharge Oropharynx: Voice normal. Lips normal. Oral mucosa is pink and moist. Normal dentition. No active drainage to posterior pharynx. No edema to lip, tongue, or uvula. No stridor Respiratory: No respiratory distress. CTA in all lung dal[place]. Cardiac: Normal rate, normal rhythm. No murmurs. MSK: ROM normal. No obvious deformities Neuro: AOX3. Answers all questions appropriately. Speech is normal. Mood/affect: mood/affect normal. Behavior normal. [facility] ED Course as of 02/06/2435 Sat Feb 05, 2024 2336 Nontoxic appearing 53 y/o presenting with rash to bilateral arms starting yesterday before taking first dose of abx. On exam there is a mild erythematous, minimally raised rash to bilateral armswithout vesicle or pustules. There is a secondary rash to her chest with erythema and superficial scabs which is being treated with keflex. No drainage or streaking. Suspect rash is due to allergic reaction although etiology is unknown. No tongue, lip, or throat edema. No respiratory distress. Willdc with triamcinolone. Discussed other OTC treatments with patient. Return precautions discussed and patient v/u and is agreeable to the plan. Patient was given the opportunity to ask questions. All questions were answered to the best of my ability. Discharged home in stable condition. [AP] ED Course User Index [AP] PIERRE Bernal Amount and/or Complexity of Data Reviewed Source of information/historian: Patient Review of internal medical records with patient's permission Review of external records was performed with patient's permission Impression/Disposition SNOMED CT(R) 1. Rash ERUPTION Disposition: Discharge Medications - No data to display Discharge Medication List as of 02/05/2024 11:50 PM START taking these medications Details triamcinolone (KENALOG) 0.1 % cream Apply topically 2 (two) times daily., Starting 02/05/2024, Eprescribe Class: Eprescribe [id number] (Ph #: [phone]) PIERRE BERNAL Disclaimer: Portions of this note were created using doxo, a speech recognition software. Occasional wrong word or sound alike substitutions may have occurred due to the inherent limitations of voice recognition software. Please read the note carefully and use context to recognize when substitutions may have occurred. PIERRE Bernal 02/06/2435 Cosigned by Umer Edwards MD,PHD at 02/06/2024 1:34 AM DUCK FARMER FARMER FARMER * Gera Thomas RN - 02/05/2024 11:15 PM CST Pt states she was diagnosed with staph infection on chest. Pt currently c/o rash to bilat upper extremities since yesterday PM that has recently started spreading down bilat upper extremities. Denies itching/pain at sites. FARMER documented in this encounter Plan of Treatment Not on file documented as of this encounter Visit Diagnoses Diagnosis Rash- Primary Rash and other nonspecific skin eruption documented in this encounter Care Teams Drip Molder Relationship Specialty Start Date End Date Kevin Bowles MD PCP - General FAMILY PRACTICE 01/11/18 documented as of this encounter
--- OUTSIDE RECORDS SUMMARY | 2024-04-01 11:13 | XMS_ITS | Encounter Summary ---
Author Organization [facility] Address [address] [place] [address]. [place] [address] [place] [address] Care Team Providers Care Bar Roller Name Role Phone Kevin Bowles MD Primary Care Provider [phone]- [phone] Encounter Details Date Type Department Care Team (Latest Contact Info) Description 01/11/2018 Abstract [facility] Windy Eason MD [address] [facility] [address], [place] [address] Social History Tobacco Use Types Packs/Day Years [...] GD THYROID FINE NDL ASPIR Routine 01/11/2018 1:00 PM CDT documented in this encounter Results * US GD THYROID FINE NDL ASPIR (01/11/2018 1:00 PM CDT) Anatomical Region Laterality Modality Neck Ultrasound 01/11/2018 1:0 0 PM CDT 01/11/2018 1:00 PM CDT Narrative 01/11/2018 3:36 PM CDT EXAMINATION: Thyroid ultrasound guided biopsy [...] [facility] ??A timeout was performed during which [...] Cruz MD, 01/11/2018 3:33 PM Procedure Note Shannon Beal MD - 01/22/2018 EXAMINATION: Thyroid ultrasound guided biopsy Exam Date/Time: [...] patient was [facility]. A timeout was performed during which [...] t documented in this encounter Visit Diagnoses Not on filedocumented in this encounter Care Teams Bar Roller Relationship Specialty Start Date End Date Kevin Bowles MD PCP - General FAMILY PRACTICE 01/11/18 documented as of this encounter
--- OUTSIDE RECORDS SUMMARY | 2024-04-01 11:13 | XMS_ITS | Encounter Summary ---
Author Organization [facility] Address [address] [place] [address]. [place], [place] [address] [place] [address] Care Team Providers Care Insulation Power Unit Tender Name Role Phone Kevin Bowles MD Primary Care Provider +1- [phone] Encounter Details Date Type Department Care Team (Latest Contact Info) Description 02/05/2024 Travel Social History Tobacco Use Types Packs/Day Years [...] on filedocumented in this encounter Care Teams Insulation Power Unit Tender Relationship Specialty Start Date End Date Kevin Bowles MD PCP - General FAMILY PRACTICE 01/11/18 documented as of this encounter
--- OUTSIDE RECORDS SUMMARY | 2024-04-01 11:13 | XMS_ITS | Encounter Summary ---
Author Organization [facility] Address [address] [place] [address]. [place], [place] [address] [place] [address] Care Team Providers Care J2Ee Programmer Name Role Phone Kevin Bowles MD Primary Care Provider +1- [phone] Encounter Details Date Type Department Care Team (Latest Contact Info) Description 05/28/2022 Travel Social History Tobacco Use Types Packs/Day [...] Coronavirus/COVID-19? No / Unsure 05/28/2022 10:13 AM ENT PHYSICIAN documented as of this encounter Plan of Treatment Not on file documented as of this encounter Visit Diagnoses Not on filedocumented in this encounter Care Teams J2Ee Programmer Relationship Specialty Start Date End Date Kevin Bowles MD PCP - General FAMILY PRACTICE 01/11/18 documented as of this encounter
--- OUTSIDE RECORDS SUMMARY | 2024-04-01 11:13 | XMS_ITS | Encounter Summary ---
Author Organization [facility] Address [address] [place] [address]. [place] [address] [place] [address] Care Team Providers Care Drop Wire Stringer Name Role Phone Kevin Bowles MD Primary Care Provider [phone] Reason for Referral * Imaging (Urgent) - Closed Specialty Diagnoses / Procedures Referred By Marc t Referred To Contact RADIOLOGY Procedures CTA CHEST Nery Morley NP [address] [address] Phone: tel: fax: Referral ID Status Reason Start Date Expiration Date Visits Re quested Visits Authorized [id number] Closed 02/02/2022 02/02/2023 1 1 TAL PROGRAM MANAGER Reason for Visit * Reason Comments Shortness Of Breath Encounter Details Date Type Department Care Team (Late st Contact Info) Description 02/02/2022 8:40 PM DIGITAL PROGRAM MANAGER - 02/03/2022 12:20 AM DIGITAL PROGRAM MANAGER Emergency [facility] [place] [address] Nery Morley NP [address] [id number] Shortness Of Breath Discharge Disposition: Home or Self Care (Routine [...] suspected to have Coronavirus/COVID-19? No / Unsure 02/02/2022 8:27 PM DIGITAL PROGRAM MANAGER documented as of this encounter Last Filed Vital Signs Vital Sign Reading Time Taken Comments Blood Pressure 143/97 02/02/2022 8:31 PM DIGITAL PROGRAM MANAGER Pulse 75 02/02/2022 8:31 PM DIGITAL PROGRAM MANAGER Temperature 36.7 ??C (98.1 ??F) 02/02/2022 8:31 PM CS T Respiratory Rate 18 02/02/2022 8:31 PM DIGITAL PROGRAM MANAGER Oxygen Saturation 96% 02/02/2022 8:31 PM DIGITAL PROGRAM MANAGER Inhaled Oxygen Concentration - - Weight 117.5 kg (259 lb) 02/02/2022 8:31 PM DIGITAL PROGRAM MANAGER Height 162.6 cm (5' 4 ) 02/02/2022 8:31 PM DIGITAL PROGRAM MANAGER Body Mass Index 44.46 02/02/2022 8:31 PM DIGITAL PROGRAM MANAGER documented in this encounter Discharge Instructions * Discharge Instructions* Nery Morley NP - 02/03/2022 12:05 AM DIGITAL PROGRAM MANAGER Thymic structure on CT, may have already been evaluated by your biospy of the area. Do follow up with your doctor. IF symptoms persist, consider follow up with the [facility] clinic for [place], can google search the contact information. TAL PROGRAM MANAGER * Attachments The following attachments cannot be sent through Care Everywhere. * Shortness of Breath (Dyspnea) Discharge Instructions (Moldovan) * High Potassium Diet (Moldovan) documented in this encounter Medications at Time [...] by mouth as needed. vitamin D2, ergocalciferol, [address] UNITS capsule Take 1 capsule by mouth once a week. 12/14/2016 documented as of this encounter ED Notes * Anthony Burgess RN - 02/03/2022 12:19 AM CST Provider discussed today's findings with the patient/family. The patient has been given informationregarding their treatment, follow up and concerning symptoms for which they should seek urgent or emergent attention. I have expressed the the importance of seeking attention should there be any new,or worsening symptoms or persistence of their condition. Patient verbalized understanding of the discharge instructions. TAL PROGRAM MANAGER * Nery Morley NP - 02/02/2022 8:38 PM CST Emergency Department Note Chief Complaint Chief Complaint Patient presents with ??? Shortness Of Breath History of Present Illness 51 yo female with PMH of anemia, arthritis, migraines, thyroid nodules, RA, SICCA, sjogren's with COVID + diagnosis 8 days ago and has finished Paxlovid. She c/o shortness of breath since Last night and it has improved through the day and worsened this evening. Denies any fever or chest pain Medical History ALLERGIES: Allergies Allergen Reactions ??? Ketorolac Swelling tongue numbness and swelling MEDICATIONS: Prior to Admission medications Medication Sig Start Date End Date Taking? Authorizing Provider acetaminophen (TYLENOL) 500 MG tablet Take 1 tablet by mouth. [facility] cloNIDine 0.2 MG tablet Take 1 tablet by mouth. 04/08/17 [facility] diphenhydrAMINE (BENADRYL) 25 MG capsule [facility] folic acid 1 MG tablet Take 1 mg by mouth daily. 05/31/18 [facility] hydroxychloroquine 200 MG tablet Take 1 tablet by mouth 2 (two) times daily. 11/12/16 [facility] ibuprofen (ADVIL) 200 MG tablet Take 1 tablet by mouth. [facility] lifitegrast (XIIDRA) 5 % ophthalmic solution [facility] methotrexate 2.5 MG tablet TAKE 6 TABLETS BY MOUTH ONCE WEEKLY 04/25/18 [facility] ondansetron 4 MG tablet Once a week 06/22/18 [facility] pseudoephedrine (SUDAFED 12 HOUR) 120 MG 12 hr tablet [facility] sulfaSALAzine 500 MG delayed release tablet Take 3 tablets by mouth 2 (two) times daily. 05/28/17 [facility] trazodone 50 MG tablet Take 50 mg by mouth as needed. [facility] vitamin D2, ergocalciferol, [address] UNITS capsule Take 1 capsule by mouth once a week. 12/14/16 [facility] PAST MEDICAL HISTORY: Past Medical History: Diagnosis Date ??? Anemia ??? Anemia ??? Disease of thyroid gland Hannah's thyroiditis ??? Inflammatory arthritis ??? Migraines ??? Multiple thyroid nodules ??? Multiple thyroid nodules ??? Neck pain ??? Paresthesia of both hands ??? Parotid mass ??? Rheumatoid arthritis (CMS/HCC) ??? Seasonal allergies ??? Sicca (CMS/HCC) ??? Sjogren's disease (CMS/HCC) ??? Vitamin D deficiency PAST SURGICAL HISTORY: Past Surgical History: Procedure Laterality Date ??? ADENOIDECTOMY ??? CARPAL TUNNEL RELEASE Bilateral ??? CHOLECYSTECTOMY ??? FOREARM/WRIST SURGERY UNLISTED Left ??? HAND/FINGER SURGERY UNLISTED Left joint ??? KNEE SURGERY Right removal of ACL cyst ??? TONSILLECTOMY FAMILY HISTORY: Family history negative SOCIAL HISTORY: Social History Tobacco Use ??? Smoking status: Never ??? Smokeless tobacco: Never Substance Use Topics ??? Alcohol use: No ??? Drug use: No Review of Systems Review of Systems Respiratory: Positive for shortness of breath. Negative for chest tightness. All other systems reviewed and are negative. Physical Exam Filed Vitals: 02/02/222030 BP: (!) 143/97 Pulse: 75 Resp: 18 Temp: 98.1 ??F (36.7 ??C) TempSrc: Temporal SpO2: 96% Weight: 117.5 kg (259 lb) Height: 5' 4 (1.626 m) Physical Exam Vitals reviewed. Constitutional: General: She is not in acute distress. Appearance: She is well-developed and well-nourished. HENT: Head: Normocephalic. Eyes: Pupils: Pupils are equal, round, and reactive to light. Cardiovascular: Rate and Rhythm: Normal rate and regular rhythm. Pulses: Intact distal pulses. Heart sounds: Normal heart sounds. No murmur heard. Pulmonary: Effort: Pulmonary effort is normal. No respiratory distress. Breath sounds: Normal breath sounds. No stridor. No rhonchi. Chest: Chest wall: No tenderness. Abdominal: General: Bowel sounds are normal. Palpations: Abdomen is soft. Tenderness: There is no abdominal tenderness. Musculoskeletal: General: No tenderness or edema. Skin: General: Skin is warm and dry. Coloration: Skin is not pale. Neurological: Mental Status: She is alert and oriented to person, place, and time. Psychiatric: Mood and Affect: Mood and affect normal. Behavior: Behavior normal. Thought Content: Thought content normal. Judgment: Judgment normal. Diagnostic Studies / Procedures ELECTROCARDIOGRAMS: Results for orders placed or performed during the hospital encounter of 02/02/22 ECG 12 lead Narrative [place] Test Date: 2022-02-02 Pat Name: MONICA BUCKNER Department: 41 Room: Gender: Female Director [employer]: : 1970 Requested By: NERY MORLEY Order Number: [id number] Reading MD: Measurements Intervals [place] Rate: 68 P: -51 OK: 200 QRS: 44 QRSD: 100 T: 6 QT: 362 QTc: 385 Interpretive Statements SINUS RHYTHM LOW QRS VOLTAGE IN EXTREMITY LEADS [QRS DEFLECTION < 0.5 mV IN LIMB LEADS] POSSIBLE ANTERIOR MYOCARDIAL INFARCTION , PROBABLY OLD [30 ms Q WAVE IN V3/V4, OR R < 0.2 mV IN V4] No previous ECG available for comparison Rhythm: SR Rate: 68 QTc: 385 Ectopy : no Overview of Ekg interpretation provided by ERP other ischemic changes No STEMI Prior EKG for comparison none Reviewed and scribed by me, SAMPLE CLERK LABORATORY STUDIES: Results for orders placed or performed during the hospital encounter of 02/02/22 CBC W/DIFF AUTOMATED Result Value Ref Range WBC 12.1 (H) 4.5 - 11.0 x10'3/uL RBC 4.56 4.20 - 5.40 x10'6/uL HGB 13.8 12.0 - 16.0 G/DL HCT 40.3 38.0 - 48.0 % MCV 88.4 81.0 - 99.0 FL MCH 30.3 27.0 - 31.0 PG MCHC 34.2 32.0 - 36.0 G/DL RDW 14.2 11.5 - 14.5 % PLT 250 130 - 400 x10'3/uL MPV 9.5 9.3 - 12.2 FL DIFFERENTIAL TYPE AUTOMATED DIFFERENTIAL NEUTROPHILS 50.9 % LYMPHOCYTES 39.4 % MONOCYTES 7.5 % EOSINOPHILS 1.3 % BASOPHILS 0.2 % IMMATURE GRANS 0.7 % ABS. NEUTROPHILS TOTAL 6.14 1.80 - 7.70 x10'3/uL ABS. LYMPHOCYTES 4.76 1.00 - 4.80 x10'3/uL ABS. MONOCYTES 0.90 (H) 0.24 - 0.86 x10'3/uL ABS. EOSINOPHILS 0.16 0.04 - 0.36 x10'3/uL ABS. BASOPHILS 0.02 0.01 - 0.08 x10'3/uL ABS. IMMATURE GRANULOCYTES 0.09 0.00 - 0.49 x10'3/uL PROTIME/INR, VENOUS Result Value Ref Range Protime 12.4 10.2 - 12.9 SEC INR 1.1 D-DIMER, QUANTITATIVE Result Value Ref Range D-DIMER 591 (HH) 0 - 500 ng[FEU]/mL TROPONIN, QUANT Result Value Ref Range TROPONIN I HIGH SENSITIVITY 5 <54 ng/L COMPREHENSIVE METABOLIC PANEL Result Value Ref Range GLUCOSE 91 70 - 99 MG/DL BUN 19 (H) 7 - 18 MG/DL CREATININE S/P/B 0.59 0.55 - 1.02 MG/DL SODIUM 140 136 - 145 MMOL/L POTASSIUM 3.2 (L) 3.5 - 5.1 MMOL/L CHLORIDE S/P/B 105 100 - 108 MMOL/L CO2 32.0 21 - 32 MMOL/L CALCIUM 9.0 8.5 - 10.1 MG/DL BILIRUBIN TOTAL S/P/B 0.3 0.2 - 1.2 MG/DL TOTAL PROTEIN S/P/B 7.2 6.4 - 8.2 G/DL ALBUMIN S/P/B 3.4 3.4 - 5.0 G/DL AST 27 15 - 37 U/L ALT 84 (H) 14 - 55 U/L ALKALINE PHOSPHATASE S/P/B 86 50 - 136 U/L ANION GAP 3.0 (L) 5 - 15 MMOL/L BUN CREATININE RATIO 32.3 (H) 6 - 26 A/G RATIO 0.9 (L) 1.0 - 2.0 RATIO GFR ESTIMATE >90 >90 ML/MIN/1.73 M2 POCT urine Result Value Ref Range URINE HCG TEST NEGATIVE NEGATIVE Internal Control: VALID VALID IMAGING STUDIES CTA CHEST Final Result by User, [id number] (02/02 2254) INDICATION: PE suspected, high prob, dyspnea COMPARISON: Chest radiograph from earlier same date TECHNIQUE: Multidetector CT images were obtained through the chest from the lung apices to the upper abdomen after administration of IV contrast. Coronal and sagittal MIP reconstructions were performed. A dose lowering technique was used for this procedure, which may include, but is not limited to, dose reduction technique, automated exposure control, the use of iterative reconstruction, and ALARA (As Low As Reasonably Achievable) / Image Gently techniques. FINDINGS: Contrast bolus is diagnostic. Main pulmonary artery is slightly enlarged, measuring 3.4 cm, as can be seen in pulmonary hypertension. There are no filling defects in the main or segmental pulmonary arteries to suggest pulmonary embolism. Cardiac chambers within normal size limits. Interventricular septal contour within normal limits. RV LV ratio within normal limits. No significant pericardial effusion. There is no mediastinal lymphadenopathy. 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 No pleural effusion. Limited visualization of the upper abdomen reveals no acute abnormality. Cholecystectomy. Adrenal glands unremarkable. Trachea and central airways are patent. No pneumothorax. No focal airspace consolidation. Mild chronic multilevel degenerative changes of the spine. IMPRESSION: 1. No evidence of pulmonary embolism. 2. No CT evidence of pneumonia. 3. 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 Recommend follow-up contrast enhanced CT in 3-6 months to document stability. Referred By: Interpreted By: Venancio Sandhu MD, 02/02/2022 10:35 PM XR CHEST PORTABLE Final Result by User, [id number] (02/02 2126) Examination: Chest 1 view portable History: Shortness of breath DATE/TIME: 02/02/2022 8:55 PM Comparison: None Technique: AP upright portable view of the chest was obtained. Findings: Heart size, mediastinal contours and pulmonary vasculature are within normal limits. No pulmonary consolidation, pleural effusion or pneumothorax. No acute osseous abnormality. Impression: No acute chest findings. Referred By: Interpreted By: Zoran Lawson MD, 02/02/2022 9:21 PM ED Course / Medical Decision Making Results: I reviewed old medical records, obtained from Care Everywhere, as well as internal past medical records, where needed and available. I interpreted the patient's pulse oximeter at rest, which is 96% on room air which is normal and determined that this patient is not hypoxic We discussed the finding near her thymus, she states that has been biopsied. Advised her to follow-up with her primary care doctor to assure that that has been covered in any future management. She expresses The elements of the HPI, review of systems, past medical history, past surgical history, past family history, social history, medication list, allergies, and examination documented above were personally obtained by me via direct interaction of the patient when possible, with the exception of circumstances or patient factors limiting my ability to do so, as above. In instances where nursing or other providers documented this information prior to my encounter, I personally confirmed the accuracy of this information to the best of my ability given the circumstances. Laboratory Data Reviewed: Noted labs, and abnormals noted on work sheet Imaging Studies Reviewed: Read interpretation report from radiologist. Reviewed images of xrays, independently. Did not speakwith radiologist re: CTA ED Course: ED Course as of 02/03/2228Feb 02, [id number] D-DIMER(!!): 591 [LM] 2352 POTASSIUM(!): 3.2 [LM] ED Course User Index [LM] Nery Morley NP Outpatient recommendation to PCP and ending. Recommended post-COVID clinic at [facility] if symptoms ordered, and provided with phone number to call for an appointment. Patient instructed to call on the next business day during business hours, and informed that he should be evaluated by this specialistwithin 1 week Patient provided with printed and verbal discharge care instructions and was instructed to return to the emergency department immediately with worsening symptoms or new worrisome symptoms. I did spend time answering questions. Patient condition at time of discharge stable Diagnoses & treatment discussed with patient Patient expressed understanding and agreed. ED Diagnosis: Clinical Impression Dyspnea (Primary) Hypokalemia Disposition: Discharge ED Course as of 02/03/2228Feb 02, 20222158 D-DIMER(!!): 591 [LM] 2352 POTASSIUM(!): 3.2 [LM] ED Course User Index [LM] Nery Morley NP Medications iopamidol (ISOVUE-370) 76 % injection 80 mL (80 mLs Intravenous Given 02/02/222212) potassium chloride CR (K-TAB) tablet 40 mEq (40 mEq Oral Given 02/03/2214) Clinical Impression Dyspnea (Primary) Hypokalemia Discharge Medication List as of 02/03/2022 12:08 AM Medications iopamidol (ISOVUE-370) 76 % injection 80 mL (80 mLs Intravenous Given 02/02/222212) potassium chloride CR (K-TAB) tablet 40 mEq (40 mEq Oral Given 02/03/2214) Discharge Medication List as of 02/03/2022 12:08 AM Disposition: Discharge Follow-Up: Kevin Bowles MD [address] [facility] [address] [place] [address] [place] [id number] As needed NERY MORLEY NP 02/03/2022 Note: NOTE: I dictated portions of this note using [employer] speech recognition software. Occasional wrong word or sound-alike substitutions may have occurred due to the inherent limitations of voice recognition software. Nery Morley NP 02/03/22 0029 Cosigned by Umer Edwards MD,PHD at 02/03/2022 3:31 AM DIGITAL PROGRAM MANAGER TAL PROGRAM MANAGER TAL PROGRAM MANAGER * Adelaida Kohler RN - 02/02/2022 8:34 PM CST Pt presents to ED with complaints of shortness of breath that started last night, pt reports some improvement throughout the day today. Pt reports the shortness of breath increased this evening. Pt states she was diagnosed with Covid last Wednesday, and started Paxlovid on Wednesday. Pt also reports having several autoimmune diseases. TAL PROGRAM MANAGER TAL PROGRAM MANAGER documented in this encounter Plan of Treatment Not on file documented as of this encounter Procedures Procedure Name Priority Date/Time Associated Diagnosis Comments CTA CHEST STAT 02/02/2022 10:12 PM DIGITAL PROGRAM MANAGER XR CHEST PORTABLE STAT 02/02/2022 9:1 5 PM DIGITAL PROGRAM MANAGER PROTHROMBIN TIME, VENOUS STAT 02/02/2022 8:57 PM DIGITAL PROGRAM MANAGER COMPREHENSIVE METABOLIC PANEL STAT 02/02/2022 8:57 PM DIGITAL PROGRAM MANAGER D-DIMER, QUANTITATIVE STAT 02/02/2022 8:57 PM DIGITAL PROGRAM MANAGER CBC W/DIFF AUTOMATED STAT 02/02/2022 8:57 PM DIGITAL PROGRAM MANAGER TROPONIN, QUANT STAT 02/02/2022 8:57 PM DIGITAL PROGRAM MANAGER POCT URINE (BACK OFFICE) STAT 02/02/2022 8:56 PM DIGITAL PROGRAM MANAGER ECG 12-LEAD Routine 02/02/2022 8:50 PM DIGITAL PROGRAM MANAGER documented in this encounter Results * CTA CHEST (02/02/2022 10:12 PM DIGITAL PROGRAM MANAGER) Anatomical Region Laterality Modality Chest Computed Tomogra phy 02/02/2022 10:3 5 PM DIGITAL PROGRAM MANAGER Impressions 02/02/2022 10:53 PM DIGITAL PROGRAM MANAGER IMPRESSION: 1. ??No evidence of pulmonary embolism. 2. ??No CT evidence of pneumonia. 3. 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 Recommend follow-up contrast enhanced CT in 3-6 months to document stability. Referred By: ?? Interpreted By: Venancio Sandhu MD, 02/02/2022 10:35 PM Narrative 02/02/2022 10:53 PM DIGITAL PROGRAM MANAGER INDICATION: PE suspected, high prob, dyspnea COMPARISON: Chest radiograph from earlier same date TECHNIQUE: Multidetector CT images were obtained through the chest from the lung apices to the upper abdomen after administration of IV contrast. Coronal and sagittal MIP reconstructions were performed. A dose lowering technique was used for this procedure, which may include, but is not limited to, dose reduction technique, automated exposure control, the use of iterative reconstruction, and ALARA (As Low As Reasonably Achievable) / Image Gently techniques. FINDINGS: Contrast bolus is diagnostic. Main pulmonary artery is slightly enlarged, measuring 3.4 cm, as can be seen in pulmonary hypertension. There are no filling defects in the main or segmental pulmonary arteries to suggest pulmonary embolism. Cardiac chambers within normal size limits. Interventricular septal contour within normal limits. RV LV ratio within normal limits. No significant pericardial effusion. There is no mediastinal lymphadenopathy. 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 No pleural effusion. Limited visualization of the upper abdomen reveals no acute abnormality. Cholecystectomy. Adrenal glands unremarkable. Trachea and central airways are patent. No pneumothorax. No focal airspace consolidation. Mild chronic multilevel degenerative changes of the spine. Procedure Note Venancio Sandhu MD - 02/02/2022 INDICATION: PE suspected, high prob, dyspnea COMPARISON: Chest radiograph from earlier same date TECHNIQUE: Multidetector CT images were obtained through the chest from the lungapices to the upper abdomen after administration of IV contrast. Coronaland sagittal MIP reconstructions were performed. A dose lowering techniquewas used for this procedure, which may include, but is not limited to,dose reduction technique, automated exposure control, the use of iterativereconstruction, and ALARA (As Low As Reasonably Achievable) / Image Gentlytechniques. FINDINGS: Contrast bolus is diagnostic. Main pulmonary artery is slightly enlarged,measuring 3.4 cm, as can be seen in pulmonary hypertension. There are nofilling defects in the main or segmental pulmonary arteries to suggestpulmonary embolism. Cardiac chambers within normal size limits.Interventricular septal contour within normal limits. RV LV ratio withinnormal limits. No significant pericardial effusion. There is nomediastinal lymphadenopathy. There is a well-circumscribed low attenuationcystlike structure in the AP window measuring approximately 1.8 x 2.5 x1.5 (TRxAPxCC) cm (coronal image 37 and axial image 46), likelyrepresenting a simple thymic cyst. No pleural effusion. Limited visualization of the upper abdomen reveals no acute abnormality.Cholecystectomy. Adrenal glands unremarkable. Trachea and central airways are patent. No pneumothorax. No focal airspaceconsolidation. Mild chronic multilevel degenerative changes of the spine. IMPRESSION: 1. No evidence of pulmonary embolism. 2. No CT evidence of pneumonia. 3. 2.5 cm low-attenuation cystlike structure in the anterior mediastinum,likely representing a simple thymic cyst. Recommend follow-up contrastenhanced CT in 3- 6 months to document stability. Referred By: Interpreted By: Venancio Sandhu MD, 02/02/2022 10:35 PM Nery Morley SAMPLE CLERK CT Final Result * XR CHEST PORTABLE (02/02/2022 9:15 PM DIGITAL PROGRAM MANAGER) Anatomical Region Laterality Modality Chest Radiographic [place] ging 02/02/2022 9:21 PM DIGITAL PROGRAM MANAGER Impressions 02/02/2022 9:25 PM DIGITAL PROGRAM MANAGER Impression: No acute chest findings. Referred By: ?? Interpreted By: Zoran Lawson MD, 02/02/2022 9:21 PM Narrative 02/02/2022 9:25 PM DIGITAL PROGRAM MANAGER Examination: Chest 1 view portable History: Shortness of breath DATE/TIME: 02/02/2022 8:55 PM Comparison: None Technique: AP upright portable view of the chest was obtained. Findings: Heart size, mediastinal contours and pulmonary vasculature are within normal limits. ??No pulmonary consolidation, pleural effusion or pneumothorax. ??No acute osseous abnormality. Procedure Note Zoran Lawson MD - 02/02/2022 Examination: Chest 1 view portable History: Shortness of breath DATE/TIME: 02/02/2022 8:55 PM Comparison: None Technique: AP upright portable view of the chest was obtained. Findings: Heart size, mediastinal contours and pulmonary vasculature arewithin normal limits. No pulmonary consolidation, pleural effusion orpneumothorax. No acute osseous abnormality. Impression: No acute chest findings. Referred By: Interpreted By: Zoran Lawson MD, 02/02/2022 9:21 PM Nery Morley SAMPLE CLERK GENERAL IMAGING Final Result * (ABNORMAL) COMPREHENSIVE METABOLIC PANEL (02/02/2022 8:57 PM DIGITAL PROGRAM MANAGER) GLUCOSE 91 70 - 99 MG/DL 02/02/2022 9:44 PM DIGITAL PROGRAM MANAGER [facility] BUN 19(H) 7 - 18 MG/DL 02/02/2022 9:44 PM DIGITAL PROGRAM MANAGER [facility] CREATININE S/P/B 0.59 0.55 - 1.02 MG/DL 02/02/2022 9:44 PM [facility] SODIUM S/P/B 140 136 - 145 MMOL/L 02/02/2022 9:44 PM [facility] POTASSIUM S/P/B 3.2(L) 3.5 - 5.1 MMOL/L 02/02/2022 9:44 PM [facility] CHLORIDE S/P/B 105 100 - 108 MMOL/L 02/02/2022 9:44 PM [facility] CO2 32.0 21 - 32 MMOL/L 02/02/2022 9:44 PM [facility] CALCIUM S/P/B 9.0 8.5 - 10.1 MG/DL 02/02/2022 9:44 PM [facility] BILIRUBIN TOTAL S/P/B 0.3 0.2 - 1.2 MG/DL 02/02/2022 9:44 PM [facility] Comment: THIS ASSAY IS NOT RECOMMENDED FOR PATIENTS UNDERGOING TREATMENT WITH ELTROMBOPAG DUE TO THE POTENTIAL FOR FALSELY ELEVATED RESULTS. TOTAL PROTEIN S/P/B 7.2 6.4 - 8.2 G/DL 02/02/2022 9:44 PM [facility] ALBUMIN S/P/B 3.4 3.4 - 5.0 G/DL 02/02/2022 9:44 PM [facility] AST 27 15 - 37 U/L 02/02/2022 9:44 PM [facility] ALT 84(H) 14 - 55 U/L 02/02/2022 9:44 PM [facility] ALKALINE PHOSPHATASE S/P/B 86 50 - 136 U/L 02/02/2022 9:44 PM [facility] ANION GAP 3.0(L) 5 - 15 MMOL/L 02/02/2022 9:44 PM DIGITAL PROGRAM MANAGER [facility] BUN CREATININE RATIO 32.3(H) 6 - 26 02/02/2022 9:44 PM DIGITAL PROGRAM MANAGER [facility] A/G RATIO 0.9(L) 1.0 - 2.0 RATIO 02/02/2022 9:44 PM DIGITAL PROGRAM MANAGER [facility] GFR ESTIMATE >90 >90 ML/MIN/1.7 3 M2 02/02/2022 9:44 PM DIGITAL PROGRAM MANAGER [facility] Comment: NOTE: eGFR is not calculated for patients <18 years of age. This is an estimated GFR calculation using the new CKD EPI creatinine equation without race and so does not require a correction factor for race. This estimated GFR should not be used for calculating drug doses. 02/02/2022 8:57 PM DIGITAL PROGRAM MANAGER Nery Morley NP LABORATORY Final Result Performing Organization Address City/[facility]/ZIP Co de Phone Number [facility] [address] [place] [address], [place] [phone] * TROPONIN, QUANT (02/02/2022 8:57 PM DIGITAL PROGRAM MANAGER) TROPONIN I HIGH SENSITIVITY 5 <54 ng/L 02/02/2022 9:44 PM DIGITAL PROGRAM MANAGER [facility] Comment: HIGH DOSES OF BIOTIN, TROPONIN-SPECIFIC AUTOANTIBODIES, AND ANTIBODY THERAPY CONTAINING HAMA MAY INTERFERE WITH THIS TEST RESULT. CORRELATION TO CLINICAL HISTORY AND PRESENTATION RECOMMENDED. 02/02/2022 8:57 PM DIGITAL PROGRAM MANAGER Nery Morley NP LABORATORY Final Result [facility] [address] [place] [address], [place] [phone] * (ABNORMAL) D-DIMER, QUANTITATIVE (02/02/2022 8:57 PM DIGITAL PROGRAM MANAGER) D-DIMER 591(HH) 0 - 500 ng{FEU}/mL 02/02/2022 9:58 PM DIGITAL PROGRAM MANAGER [facility] Comment: D-Dimer values less than or equal to 500 ng/mL FEU have a negative predictive value of >95% for exclusion of deep vein thrombosis and pulmonary embolism. In patients over 50 (who tend to have higher normal baseline D-Dimer values), recent studies suggest age-adjusted D-Dimer cutoff values (calculated as: age [years] x 10 ng/mL) result in equivalent outcomes and no additional false negative findings. Successful Call: DDIMR called 02/02/2022 09:58 PM to ROOM [facility] ([facility]) by [phone]. Read Back: Yes 02/02/2022 8:57 PM DIGITAL PROGRAM MANAGER Nery Morley NP LABORATORY Final Result Performing Organization Address City/[facility]/ZIP Co de Phone Number [facility] [address] [place] [address], [place] [phone] * PROTIME/INR, VENOUS (02/02/2022 8:57 PM DIGITAL PROGRAM MANAGER) Pathologist [facility] PROTIME 12.4 10.2 - 12.9 SEC 02/02/2022 9:58 PM DIGITAL PROGRAM MANAGER [facility] INR 1.1 02/02/2022 9:58 PM DIGITAL PROGRAM MANAGER [facility] Comment: Recommended INR Therapeutic Goals: ??2.0-3.0 Routine Therapy ??2.5-3.5 Mechanical Prosthetic Valves (High Risk) 02/02/2022 8:57 PM DIGITAL PROGRAM MANAGER Nery Morley NP LABORATORY Final Result [facility] [address] [place] [address], [place] [phone] * (ABNORMAL) CBC W/DIFF AUTOMATED (02/02/2022 8:57 PM DIGITAL PROGRAM MANAGER) [facility] WBC 12.1(H) 4.5 - 11.0 x10'3/uL 02/02/2022 9:17 PM [facility] RBC 4.56 4.20 - 5.40 x10'6/uL 02/02/2022 9:17 PM DIGITAL PROGRAM MANAGER [facility] HGB 13.8 12.0 - 16.0 G/DL 02/02/2022 9:17 PM [facility] HCT 40.3 38.0 - 48.0 % 02/02/2022 9:17 PM [facility] MCV 88.4 81.0 - 99.0 FL 02/02/2022 9:17 PM [facility] MCH 30.3 27.0 - 31.0 PG 02/02/2022 9:17 PM [facility] MCHC 34.2 32.0 - 36.0 G/DL 02/02/2022 9:17 PM [facility] RDW 14.2 11.5 - 14.5 % 02/02/2022 9:17 PM [facility] PLT 250 130 - 400 x10'3/uL 02/02/2022 9:17 PM [facility] MPV 9.5 9.3 - 12.2 FL 02/02/2022 9:17 PM [facility] DIFFERENTIAL TYPE AUTOMATED DIFFERENTIAL 02/02/2022 9:17 PM [facility] NEUTROPHILS % 50.9 % 02/02/2022 9:17 PM [facility] LYMPHOCYTES % 39.4 % 02/02/2022 9:17 PM DIGITAL PROGRAM MANAGER [facility] MONOCYTES % 7.5 % 02/02/2022 9:17 PM DIGITAL PROGRAM MANAGER [facility] EOSINOPHILS 1.3 % 02/02/2022 9:17 PM DIGITAL PROGRAM MANAGER [facility] BASOPHILS 0.2 % 02/02/2022 9:17 PM DIGITAL PROGRAM MANAGER [facility] IMMATURE GRANS % 0.7 % 02/03/20 9:17 PM DIGITAL PROGRAM MANAGER [facility] ABS. NEUTROPHILS TOTAL 6.14 1.80 - 7.70 x10'3/uL 02/02/2022 9:17 PM DIGITAL PROGRAM MANAGER [facility] ABS. LYMPHOCYTES 4.76 1.00 - 4.80 x10'3/uL 02/02/2022 9:17 PM DIGITAL PROGRAM MANAGER [facility] ABS. MONOCYTES 0.90(H) 0.24 - 0.86 x10'3/uL 02/02/2022 9:17 PM DIGITAL PROGRAM MANAGER [facility] ABS. EOSINOPHILS 0.16 0.04 - 0.36 x10'3/uL 02/02/2022 9:17 PM DIGITAL PROGRAM MANAGER [facility] ABS. BASOPHILS 0.02 0.01 - 0.08 x10'3/uL 02/02/2022 9:17 PM DIGITAL PROGRAM MANAGER [facility] ABS. IMMATURE GRANULOCYTES 0.09 0.00 - 0.49 x10'3/uL 02/02/2022 9:17 PM DIGITAL PROGRAM MANAGER [facility] 02/02/2022 8:57 PM DIGITAL PROGRAM MANAGER us Nery Morley NP LABORATORY Final Result [facility] [address] [place] [address], [place] [phone] * POCT urine (02/02/2022 8:56 PM DIGITAL PROGRAM MANAGER) URINE HCG TEST NEGATIVE NEGATIVE Internal Control: VALID VALID us Nery Morley SAMPLE CLERK POINT OF CARE TEST ORDERABLES Final Result * ECG 12 lead (02/02/2022 8:50 PM DIGITAL PROGRAM MANAGER) 02/02/2022 8:50 PM DIGITAL PROGRAM MANAGER Narrative [facility] - 02/03/2022 10:05 PM DIGITAL PROGRAM MANAGER ?[facility] [place] ? [address] [place] ? Test Date: ?2022-02-02 Pat Name: ? MONICA BUCKNER ? Department: ?? 41 ? Room: ? EXAM05 Gender: ? Female ? 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 Requested By: NERY MORLEY Order Number: [id number] ? Reading MD: ?? Kevin Angel ? Measurements Intervals ?[place] ? Rate: ? 68 ? P: ?-51 OK: ? 200 ?QRS: ?44 QRSD: ? 100 ?T: ?6 QT: ? 362 ? QTc: ?385 ? Interpretive Statements SINUS RHYTHM LOW QRS VOLTAGE IN EXTREMITY LEADS ??[QRS DEFLECTION < 0.5 mV IN LIMB LEADS] POSSIBLE ANTERIOR MYOCARDIAL INFARCTION , PROBABLY OLD [30 ms Q WAVE IN V3/V4, OR R < 0.2 mV IN V4] No previous ECG available for comparison Other ischemic changes, not STEMI Nery Morley APRN CRITICAL ALERT ISSUED ON 02-02-2022 21:02:59 TAL PROGRAM MANAGER Procedure Note Kevin Angel MD - 02/03/[address]22 [facility] 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1970 Requested By: NERY MORLEY Order Number: [id number] Reading MD: Kevin Angel Measurements Intervals [place] Rate: 68 P: -51 OK: 200 QRS: 44 QRSD: 100 T: 6 QT: 362 QTc: 385 Interpretive Statements SINUS RHYTHM LOW QRS VOLTAGE IN EXTREMITY LEADS [QRS DEFLECTION < 0.5 mV IN LIMBLEADS] POSSIBLE ANTERIOR MYOCARDIAL INFARCTION , PROBABLY OLD [30 ms Q WAVE IN V3/V4, OR R < 0.2 mV IN V4] No previous ECG available for comparison Other ischemic changes, not STEMI Nery Morley APRN CRITICAL ALERT ISSUED ON 02-02-2022 21:02:59 TAL PROGRAM MANAGER us Nery Morley SAMPLE CLERK ECG ORDERABLES Final Result [facility] documented in this encounter Visit Diagnoses Diagnosis Dyspnea- Primary Other dyspnea and respiratory abnormality Hypokalemia Hypopotassemia documented in this encounter Administered Medications Inactive Administered Medications - up to 3 most recent administrations Medication Order MAR Action Action Date Dose Rate Site iopamidol (ISOVUE-370) 76 % injection 80 mL 80 mL, Intravenous, IMG once as needed, Contrast, 1 dose, Starting on Wed02/02/22 at 2213, Until Wed02/02/22 at 2213 Given 02/02/2022 10:13 PM DIGITAL PROGRAM MANAGER 80 mLs Righ t Arm potassium chloride CR (K-TAB) tablet 40 mEq 40 mEq, Oral, Once, 1 dose, On Wed02/03/22 at 0015, Do not break, chew, or crush. Given 02/03/2022 12:15 AM DIGITAL PROGRAM MANAGER 40 mEq documented in this encounter Active and Recently Administered Medications Times are shown in DIGITAL PROGRAM MANAGER. Scheduled Medication Order 02/01/2022 02/02/2022 02/03/2022 potassium chloride CR (K-TAB) tablet 40 mEq (COMPLETED) 40 mEq, Oral, Once, 1 dose, On Wed02/03/22 at 0015, Do not break, chew, or crush. 0015 (Given - Provid er: Anthony Burgess RN) PRN Medication Order 02/01/2022 02/02/2022 02/03/2022 iopamidol (ISOVUE-370) 76 % injection 80 mL (COMPLETED) 80 mL, Intravenous, IMG once as needed, Contrast, 1 dose, Starting on Wed02/02/22 at 2213, Until 02/02/22 at 2213 2213 (Given - Provider: Elena Melendez RTNikhil) documented in this encounter Care Teams Drop Wire Stringer Relationship Specialty Start Date End Date Kevin Bowles MD PCP - General FAMILY PRACTICE 01/11/18 documented as of this encounter
--- OUTSIDE RECORDS SUMMARY | 2024-04-01 11:13 | XMS_ITS | Encounter Summary ---
Author Organization [facility] Address [address] [place] [address]. [place], [place] [address] [place] [address] Care Team Providers Care Survey Project Manager Name Role Phone Kevin Bowles MD Primary Care Provider [phone]- [phone] Encounter Details Date Type Department Care Team (Latest Contact Info) Description 01/19/[address] [facility] , Generic ConversionMD Social History [...] Notes * Generic Conversion MD Lian - 01/19/2018 3:49 PM CDT Message Recorded as Task Date: 01/17/2018 11:22 AM, Created By: Windy Eason Task Name: Call Patient with results Assigned To: MGSDEC-Dylon Christiansen Nurse Team Regarding Patient: Monica Buckner, Status: In Progress Comment: Windy Eason - 17 Jan 2018 11:22 AM Patient pleaes call patient with test results. TFT [...] of only that nodule in 3 months Ayah Kat - 17 Jan 2018 11:28 AM TASK EDITED Isela Carrero - 19 Jan 2018 1:30 PM TASK EDITED Please call patient back with Biopsy results. Ayah Kat 19 Jan 2018 3:44 PM TASK EDITED called pt informed of test results and to repeat fna of mid nodule in 3 months, told he would send over everything to [facility] to biopsy Ayah Kat 19 Jan 2018 3:49 PM TASK EDITED sent everything to [facility] for biopsy in 3 months Signatures Electronically signed by : Ayah Kat, [email or web address].NKaitlin; Jan 19 2018 3:50PM VALIDATION SCIENTIST (Author) DATION SCIENTIST documented in this encounter Plan of Treatment Not on file documented as of this encounter Visit Diagnoses Not on filedocumented in this encounter Care Teams Survey Project Manager Relationship Specialty Start Date End Date Kevin Bowles MD PCP - General FAMILY PRACTICE 01/11/18 documented as of this encounter
--- OUTSIDE RECORDS SUMMARY | 2024-04-01 11:13 | XMS_ITS | Clinical Summary ---
Author Organization [facility] Address [address] [place] [address] Care Team Providers Care Training Associate Name Role Phone Kevin Bowles MD Primary Care Provider +1- [phone] Source Comments [facility],non-owned Affiliates and Associated Physician Practices is amultiple site organization consisting of ambulatory clinics and hospital sitesin [place], [place], [place] and [place]. This disclosure is being madepursuant to the Care Everywhere program and may not contain all information available regarding this patient. Last updated 17.[facility] Allergies Active Allergy Reactions Criticality Noted Date Comments Ketorolac Anaphylaxis High 03/13/2021 Medications * Be aware that medications may not be up to date on this document. Alwaysverify current medications with the patient. Medication Sig Dispensed Refills Start Date End Date Status ibuprofen (ADVIL) 200 MG capsule Take 200 mg by mouth 4 times daily as needed for Pain Active cloNIDine (CATAPRES) 0.2 MG tablet Take 0.2 mg by mouth 2 times daily Active montelukast (SINGULAIR) 10 MG tablet Take 10 mg by mouth at bedtime Active traZODone (DESYREL) 50 MG tablet Take 50 mg by mouth at bedtime Active levothyroxine (SYNTHROID) 175 MCG tablet Take 175 mcg by mouth daily before breakfast Active methotrexate 2.5 MG tablet Take by mouth every 7 days Active ondansetron (ZOFRAN) 8 MG tablet Take 8 mg by mouth every 6 hours as needed for Nausea/Vomiting Active hydroxychloroquine (PLAQUENIL) 200 MG tablet Take by mouth once daily Active predniSONE (DELTASONE) 20 MG tabletIndications:RA flare Take three tablets PO once daily x 3 days, 2 tablets daily x 3 days, one tablet daily x 2 days Reasons: RA flare 17 tablet 03/13/2021 Active Social History Tobacco Use Types Packs/Day Years Used Date Smoking Tobacco: Never Smokeless Tobacco: Never Tobacco Cessation:Counseling Given: No Sex and Gender Information Value Date Recorded Sex Assigned at Not on file Gender Identity Not on file Sexual Orientation Not on file Last Filed Vital Signs Vital Sign Reading Time Taken Comments Blood Pressure 138/92 03/13/2021 10:23 AM HOSIERY MENDER Pulse 65 03/13/2021 10:11 AM HOSIERY MENDER Temperature 36.7 ??C (98 ??F) 03/13/2021 10:11 AM HOSIERY MENDER Respiratory Rate 18 03/13/2021 10:11 AM HOSIERY MENDER Oxygen Saturation 98% 03/13/2021 10:11 AM HOSIERY MENDER Inhaled Oxygen Concentration - - Weight 136.1 kg (300 lb) 03/13/2021 10:11 AM HOSIERY MENDER Height 162.6 cm (5' 4 ) 03/13/2021 10:11 AM HOSIERY MENDER Body Mass Index 51.49 03/13/2021 10:11 AM HOSIERY MENDER Plan of Treatment Health Maintenance Due Date Last Done Comments COLOGUARD (AGES 45-75) - COL ON CA SCREENING 1970 COLON MONITORING 1970 COLONOSCOPY - COLON CA SCREENING 1970 CT COLONOGRAPHY - COLON CA SCREENING 1970 Colorectal Cancer Screening 1970 FIT - COLON CA SCREENING 1970 FLEX SIG - COLON CA SCREENING 1970 LIPID TESTING 1970 MAMMOGRAM 1970 PAP SMEAR 1970 HIV SCREENING 1985 HEPATITIS C SCREENING 06/06/1988 DTAP/TDAP/TD VACCINES (1 - Tdap) 1989 HEPATITIS B VACCINE (1 of 3 - 19+ 3-dose series) 1989 ZOSTER VACCINE (1 of 2) 2020 SCREENING FOR DIABETES 03/13/2021 DEPRESSION SCREENING 03/22/2023 COVID-19 VACCINE (4 - 2023-2 5 season) 2023 11/21/2020, 06/12/2020, 05/21/2020 INFLUENZA VACCINE (#1) 2023 , 12/29/2019 HIB VACCINE Aged Out No longer eligi ble based on patient's age to complete this topic HPV VACCINE Aged Out No longer eligi ble based on patient's age to complete this topic MENINGOCOCCAL VACCINE Aged Out No salas fabian eligible based on patient's age to complete this topic PNEUMOCOCCAL VACCINE Aged Out No long er eligible based on patient's age to complete this topic Care Teams Training Associate Relationship Specialty Start Date End Date Kevin Bowles MD [address] [place] [phone] PCP - General Family Medicine 06/03/15
--- OUTSIDE RECORDS SUMMARY | 2024-04-01 11:13 | XMS_ITS | Referral Summary ---
Author Organization [facility] [employer] Address [address] [facility] [place] [address] Care Team Providers Care Terminal System Operator Name Role Phone Kevin Bowles MD Primary Care Provider +1- [phone] Source Comments [facility],non-owned Affiliates and Associated Physician Practices is amultiple site organization consisting of ambulatory clinics and hospital sitesin [place], [place], [place] and [place]. This disclosure is being madepursuant to the Care Everywhere program and may not contain all information available regarding this patient. Last updated 17.[facility] [employer] Allergies Active Allergy Reactions Criticality Noted Date [...] Comments Blood Pressure 138/92 03/13/2021 10:23 AM TIRE RECAPPER Pulse 65 03/13/2021 10:11 AM TIRE RECAPPER Temperature 36.7 ??C (98 ??F) 03/13/2021 10:11 AM TIRE RECAPPER Respiratory Rate 18 03/13/2021 10:11 AM TIRE RECAPPER Oxygen Saturation 98% 03/13/2021 10:11 AM TIRE RECAPPER Inhaled Oxygen Concentration - - Weight 136.1 kg (300 lb) 03/13/2021 10:11 AM TIRE RECAPPER Height 162.6 cm (5' 4 ) 03/13/2021 10:11 AM TIRE RECAPPER Body Mass Index 51.49 03/13/2021 10:11 AM TIRE RECAPPER Plan of Treatment Not on file Care Teams Terminal System Operator Relationship Specialty Start Date End Date Kevin Bowles MD [facility] [place] [phone] PCP - General Family Medicine 06/03/15
--- OUTSIDE RECORDS SUMMARY | 2024-04-01 11:13 | XMS_ITS | Encounter Summary ---
Author Organization [facility] Address [address] [place] [address]. [place], [place] [address] [place] [address] Care Team Providers Care Engineering Operations Leader Name Role Phone Kevin Bowles MD Primary Care Provider +1- [phone] Encounter Details Date Type Department Care Team (Latest Contact Info) Description 02/02/2022 Travel Social History Tobacco Use Types Packs/Day [...] Coronavirus/COVID-19? No / Unsure 02/02/2022 8:27 PM SFDC TECHNICAL ARCHITECT documented as of this encounter Plan of Treatment Not on file documented as of this encounter Visit Diagnoses Not on filedocumented in this encounter Care Teams Engineering Operations Leader Relationship Specialty Start Date End Date Kevin Bowles MD PCP - General FAMILY PRACTICE 01/11/18 documented as of this encounter
--- OUTSIDE RECORDS SUMMARY | 2024-04-01 11:17 | XMS_ITS | Encounter Summary ---
Author Organization [facility] Address [address] [place] [address] Phone Care Team Providers Care Printer Helper Name Role Phone Kevin Bowles MD Primary Care Provider [phone] Eric Crowder MD Unavailable [phone] Maico Martin MD Unavailable [phone] Reason for Referral * Procedure (Routine) - Pending Review Specialty Diagnoses / Procedures Referred By Contac t Referred To Contact Diagnoses Trigger finger, right middle finger Trigger finger, right ring finger Pain in both hands Procedures Hand / Upper Extremity Arthrocentesis: R ring A1 Gemma Sneed PA Phone: tel: fax: [facility] (All Locations) Referral ID Status Reason Start Date Expiration Date V isits Requested Visits Authorized [id number] Pending Review 03/09/2023 04/07/2024 1 1 STERED PRIVATE DUTY NURSE * Procedure (Routine) - Pending Review Specialty Diagnoses / Procedures Referred By Contac t Referred To Contact Diagnoses Trigger finger, right middle finger Trigger finger, right ring finger Pain in both hands Procedures Hand / Upper Extremity Arthrocentesis: R long A1 Gemma Sneed PA Phone: tel: fax: [facility] (All Locations) Referral ID Status Reason Start Date Expiration Date V isits Requested Visits Authorized [id number] Pending Review 03/09/2023 04/07/2024 1 1 STERED PRIVATE DUTY NURSE Reason for Visit * Reason Comments Pain Pain * Consultation (Routine) - Authorized Specialty Diagnoses / Procedures Referred By Contac t Referred To Contact Orthopedic Surgery Diagnoses Trigger finger, right middle finger Trigger finger, right ring finger Cynthia Carroll, JONNY Phone: tel: fax: [facility] (All Locations) Referral ID Status Reason Start Date Expiration Date Visits Requested Visits Authorized [id number] Authorized Specialty Services Required 01/22/2023 03/21/2025 24 24 Encounter Details Date Type Department Care Team (Late st Contact Info) Description 03/09/2023 9:30 AM REGISTERED PRIVATE DUTY NURSE Office Visit [facility] Orthopaedic Surgery [id number] [place] [address] [address] [place] [address] Gemma Sneed PA [address] [place] [id number] [place] [address] Pain in both hands (Primary Dx); Trigger finger, right middle finger; Trigger finger, right ring finger Social History Tobacco Use Types Packs/Day Years Used Date Smoking Tobacco: Never Alcohol Use Standard Drinks/Week Comments Yes 0 (1 standard drink = 0.6 oz pur e alcohol) AUDIT-C Answer Date Recorded Q1: How often do you have a drink containing alc ohol? Never 10/08/2021 Average Number of Drinks Not on file 022 Frequency of Binge Drinking Not on file 09/20 Comments No Sex and Gender Information Value Date Recorded Sex Assigned at Not on file Legal Sex Female 9:01 PM REGISTERED PRIVATE DUTY NURSE Gender Identity Not on file Sexual Orientation Not on file documented as of this encounter Patient Instructions * Patient Instructions* Gemma Sneed PA - 03/09/2023 9:30 AM REGISTERED PRIVATE DUTY NURSE Post Injection Home Care Your physician public relations assistant has elected to give you a cortisone injection today. While the pain will be initially relieved by the local anesthetic, a possibility of an injection flare exists. The cortisone injection takes approximately 48 hours to begin acting and during the time between the injectionand the point that the cortisone begins to work you may have a slight worsening of your pain. In some cases, it may take up to two weeks for the steroid to begin working. The following measures can be used to limit the severity of any possible injection flare: Use an ice bag on the affected area 3 times a day for 30 minutes at each session. No more than one time per hour. Consider the use of over the counter anti-inflammatory medications such as Advil, or Aleve, if yourmedical condition allows you to take these medications. If your physician has prescribed an anti-inflammatory medication then continue taking this medication, as prescribed. Do NOT take a bath, swim, or sit in a jacuzzi or hot tub for the next 48 hours. Showers are okay. If you have a history of diabetes, you should check your blood glucose levels between two and threetimes per day for the next three days, and adjust your insulin accordingly. Occasionally, a steroidcan raise your blood sugar to dangerous levels. If you cannot control your glucose at home, notify your primary care physician immediately. These measures should limit any injection flare that may occur. Should these measures not adequately control the pain please contact the office. Call with any questions or concerns or signs that may represent infection such as increased pain, redness, warmth, fevers. [phone] STERED PRIVATE DUTY NURSE documented in this encounter Progress Notes * Gemma Sneed PA - 03/09/2023 9:30 AM CSTAssociated Order(s): Hand / Upper Extremity Arthrocentesis: R long A1; Hand / Upper Extremity Arthro centesis: R ring A1 Post-Procedure Diagnose(s): Pain in both hands; Trigger finger, right ring finger; Trigger finger, right middle finger 03/09/2023 Chief Complaint (CC): Chief Complaint Patient presents with Left Hand - Pain Right Hand - Pain HPI: Monica Buckner is a 52 y.o. female who presents to clinic today with complaints of right hand pain. Patient has underlying known inflammatory arthritis currently treated on biologics, history of bilateral carpal tunnel releases and synovectomy the extensor tendons on the left wrist by Dr. Beasley 8 years ago. She states in November she began having triggering of the 3rd and 4th digits on both sides, right significantly more than left. States they will lock and often requires manual reduction on the right only. Her regulatory analyst recommended she seek evaluation by Orthopedics. Symptoms are described as aching and moderate. Worse with activity and better with rest. She states warm water soaks help her hand pain in general. She does mention that increased falls may be responsible for her increasing symptoms. Meds: Current Outpatient Medications: acetaminophen (TYLENOL) 325 mg tablet, take 1 - 2 Tablet by oral route 3 times every day, Disp: 0, Rfl: 0 cloNIDine (CATAPRES) 0.2 mg tablet, Take 1 tablet (0.2 mg total) by mouth, Disp: , Rfl: diphenhydrAMINE 25 mg capsule, Take by mouth (Patient not taking: Reported on 11/13/2022), Disp: , Rfl: ergocalciferol (VITAMIN D) 50,000 unit capsule, Take 1 capsule (50,000 Units total) by mouth once aweek, Disp: , Rfl: folic acid (FOLVITE) 1 mg tablet, Take 1 tablet (1 mg total) by mouth daily, Disp: , Rfl: hydrOXYchloroQUINE (PLAQUENIL) 200 mg tablet, Take 1 tablet (200 mg total) by mouth 2 (two) times aday, Disp: 180 tablet, Rfl: 1 ibuprofen 200 mg tab/cap, Take 1 tablet by mouth, Disp: , Rfl: leflunomide (ARAVA) 20 mg tablet, Take 1 tablet (20 mg total) by mouth daily, Disp: 90 tablet, Rfl:1 levothyroxine (SYNTHROID, LEVOTHROID) 175 mcg tablet, take 1 tablet by oral route every day, Disp: 0, Rfl: 0 lifitegrast 5 % dropperette, Administer into affected eye(s) (Patient not taking: Reported on 11/13/2022), Disp: , Rfl: loratadine (CLARITIN) 10 mg tablet, take 1 tablet by oral route every day (Patient not taking: Reported on 11/13/2022), Disp: 0, Rfl: 0 montelukast (SINGULAIR) 10 mg tablet, Take 1 tablet (10 mg total) by mouth nightly, Disp: , Rfl: mupirocin (BACTROBAN) 2 % ointment, , Disp: , Rfl: nortriptyline (Pamelor) 25 mg capsule, , Disp: , Rfl: predniSONE (DELTASONE) 5 mg tablet, Take 4 tablets by mouth daily x3 days, then 3 tabs daily x3 days, then 2 tabs daily x3 days, then 1 tab daily x3 days., Disp: 30 tablet, Rfl: 0 PROAIR HFA 90 mcg/actuation inhaler, , Disp: , Rfl: traZODone (DESYREL) 50 mg tablet, Take 1 tablet (50 mg total) by mouth as needed, Disp: , Rfl: Allergies: Allergies Allergen Reactions Ketorolac Sumatriptan Past Medical History (PMH): Past Medical History: Diagnosis Date Joint pain Family Hx/Social Hx: Family hx reviewed at today's visit. Physical Exam: There were no vitals taken for this visit. General: Patient is a well-appearing female in no acute distress, alert and oriented Cardiac: normal rate and rhythm, no edema Psychological: Alert and oriented. Cooperative, normal stated mood, congruent affect. Respiratory: breathing regular rate, unlabored. No cough or wheeze Skin: warm, well-perfused, No rashes or open wounds involving bilateral lower extremities. Vascular: 2+ pulses HEENT: Normocephalic, atraumatic. Hearing adequate for conversation. Eyes: Non-icteric sclera. On inspection, bilateral hands, noted to have healed incisions both volar and dorsal on the left wrist, volar only on the right consistent carpal tunnel release. Noted to have a amputation to the left ring finger. She is some mild swelling diffusely about the MCPs, no erythema or warmth. She endorses diffuse tenderness most notably over the A1 pulleys at both the 3rd and 4th digit on the right, more minimally on the left. Endorses no tenderness at the 2nd and 5th MCP. She can demonstrate a fullcomposite fist on both sides though takes significant effort in describes notable pain for both flexion. She is visible locking of the 3rd and 4th digit on the right, none on the left. Neurovascularly intact. Xrays/Imaging: For views of the bilateral hand and wrist were obtained the office today reviewed myself. 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 Assessment and Plan: 1. Pain in both hands 2. Trigger finger, right middle finger 3. Trigger finger, right ring finger Patient's clinical history exam findings x-ray findings and treatment options were discussed with the patient the office today. We discussed some of her hand tightness and discomfort, likely secondary to her known inflammatory arthritis. However, she does have apparent locking to the 3rd and 4th digit on the right. Recommend trial of steroid injections on the right, 3rd and 4th. Recommend steroidinjections. Risks and benefits reviewed she would like to proceed. Hand / Upper Extremity Arthrocentesis: R long A1 Performed by: Gemma Sneed PA Authorized by: Gemma Sneed PA Hand/Upper Extremity Injection: Consent Given by: Patient Verbal consent obtained?: Yes Supporting Documentation: Indications: Pain Procedure Details: Condition: trigger finger Location: Long finger Site: R long A1 Needle Size: 27 G Approach: Dorsal Ultrasound guidance: No Medications: 40 mg methylPREDNISolone acetate 40 mg/mL; 1 mL lidocaine 10 mg/mL (1 %) Patient tolerance: Patient tolerated the procedure well with no immediate complications Hand / Upper Extremity Arthrocentesis: R ring A1 Performed by: Gemma Sneed PA Authorized by: Gemma Sneed PA Hand/Upper Extremity Injection: Consent Given by: Patient Procedure Details: Condition: trigger finger Location: Ring finger Site: R ring A1 Needle Size: 27 G Approach: Dorsal Medications: 40 mg methylPREDNISolone acetate 40 mg/mL; 1 mL lidocaine 10 mg/mL (1 %) Patient tolerance: Patient tolerated the procedure well with no immediate complications Post-injection care was reviewed all questions answered. Gemma Sneed PA-C [facility] Department of Orthopedics Working in collaboration with Dr. Kailash Adkins. Dictation completed using [employer] Speaking. Variances may occur. Cosigned by Kailash Adkins MD at 03/09/2023 2:44 PM REGISTERED PRIVATE DUTY NURSE STERED PRIVATE DUTY NURSE STERED PRIVATE DUTY NURSE documented in this encounter Plan of Treatment Not on file documented as of this encounter Procedures Procedure Name Priority Date/Time Associated Diagnosis Comments XR WRIST RIGHT 3 OR MORE VIEWS Schedule Routine, Read Routine (OP Routine) 03/09/2023 9:47 AM REGISTERED PRIVATE DUTY NURSE Pain in both hands XR WRIST LEFT 3 OR MORE VIEWS Schedule Routine, Read Routine (OP Routine) 03/09/2023 9:46 AM REGISTERED PRIVATE DUTY NURSE Pain in both hands MD INJECTION 1 TENDON SHEATH/LIGAMENT APONEUROSIS Routine 03/09/2023 9:30 AM REGISTERED PRIVATE DUTY NURSE Trigger finger, right middle finger Trigger finger, right ring finger Pain in both hands MD INJECTION 1 TENDON SHEATH/LIGAMENT APONEUROSIS Routine 03/09/2023 9:30 AM REGISTERED PRIVATE DUTY NURSE Trigger finger, right middle finger Trigger finger, right ring finger Pain in both hands documented in this encounter Results * XR Wrist Right 3+ View (03/09/2023 9:47 AM REGISTERED PRIVATE DUTY NURSE) Anatomical Region Laterality Modality Upper Extremities, Wrist Right Compute d Radiography 03/09/2023 10:0 5 AM REGISTERED PRIVATE DUTY NURSE Impressions 03/09/2023 10:05 AM REGISTERED PRIVATE DUTY NURSE 1. ??Scattered bilateral wrist and metacarpal head erosions with normal wrist joint spaces. Electronically signed by: Venancio Mdconald M.D. Narrative 03/09/2023 10:05 AM REGISTERED PRIVATE DUTY NURSE EXAMINATION: XR WRIST LEFT 3 OR MORE VIEWS, XR WRIST RIGHT 3 OR MORE VIEWS HISTORY: 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 FINDINGS: 3 view examinations of both wrists are read without comparison. There is a healed transphalangeal amputation of the left ring finger. There is no acute fracture or dislocation. ??There are nonspecific erosions in the bilateral lunates, the right triquetrum, the right distal radius, as well as the bilateral 3rd metacarpal heads. ??Joint spaces of the wrists are normal. Procedure Note Venancio Mcdonald MD - 03/09/2023 EXAMINATION: XR WRIST LEFT 3 OR MORE VIEWS, XR WRIST RIGHT 3 OR MORE VIEWS HISTORY: 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 FINDINGS: 3 view examinations of both wrists are read without comparison. There is a healed transphalangeal amputation of the left ring finger. There is no acute fracture or dislocation. There are nonspecific erosions in the bilateral lunates, the right triquetrum, the right distal radius, as well as the bilateral 3rd metacarpal heads. Joint spaces of the wrists are normal. IMPRESSION: 1. Scattered bilateral wrist and metacarpal head erosions with normal wrist joint spaces. Electronically signed by: Venancio Mcdonald M.D. Gemma JAY IMG XR PROCEDURES Final Re sult * XR Wrist Left 3+ View (03/09/2023 9:46 AM REGISTERED PRIVATE DUTY NURSE) Anatomical Region Laterality Modality Upper Extremities, Wrist Left Compute d Radiography 03/09/2023 10:0 5 AM REGISTERED PRIVATE DUTY NURSE Impressions 03/09/2023 10:05 AM REGISTERED PRIVATE DUTY NURSE 1. ??Scattered bilateral wrist and metacarpal head erosions with normal wrist joint spaces. Electronically signed by: Venancio Mcdonald M.D. Narrative 03/09/2023 10:05 AM REGISTERED PRIVATE DUTY NURSE EXAMINATION: XR WRIST LEFT 3 OR MORE VIEWS, XR WRIST RIGHT 3 OR MORE VIEWS HISTORY: 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 FINDINGS: 3 view examinations of both wrists are read without comparison. There is a healed transphalangeal amputation of the left ring finger. There is no acute fracture or dislocation. ??There are nonspecific erosions in the bilateral lunates, the right triquetrum, the right distal radius, as well as the bilateral 3rd metacarpal heads. ??Joint spaces of the wrists are normal. Procedure Note Venancio Mcdonald MD - 03/09/2023 EXAMINATION: XR WRIST LEFT 3 OR MORE VIEWS, XR WRIST RIGHT 3 OR MORE VIEWS HISTORY: 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 FINDINGS: 3 view examinations of both wrists are read without comparison. There is a healed transphalangeal amputation of the left ring finger. There is no acute fracture or dislocation. There are nonspecific erosions in the bilateral lunates, the right triquetrum, the right distal radius, as well as the bilateral 3rd metacarpal heads. Joint spaces of the wrists are normal. IMPRESSION: 1. Scattered bilateral wrist and metacarpal head erosions with normal wrist joint spaces. Electronically signed by: Venancio Mcdonald M.D. us Gemma JAY IMG XR PROCEDURES Final Re sult * MD INJECTION 1 TENDON SHEATH/LIGAMENT APONEUROSIS (03/09/2023 9:30 AM REGISTERED PRIVATE DUTY NURSE) Kailash Gary MD - 03/09/2023 9:30 AM REGISTERED PRIVATE DUTY NURSE Gemma Sneed PA ? 03/09/2023 11:29 AM Hand / Upper Extremity Arthrocentesis: R ring A1 Performed by: Gemma Sneed PA Authorized by: Gemma Sneed PA ?? Hand/Upper Extremity Injection: ??Consent Given by: ??Patient Procedure Details: ??Condition: trigger finger ?Location: ??Ring finger ??Site: ??R ring A1 ??Needle Size: ??27 G ??Approach: ??Dorsal ??Medications: ??40 mg methylPREDNISolone acetate 40 mg/mL; 1 mL lidocaine 10 mg/mL (1 %) ??Patient tolerance: ??Patient tolerated the procedure well with no immediate complications us Gemma JAY IN CLINIC/BEDSIDE ORDERABL ES Final Result * MD INJECTION 1 TENDON SHEATH/LIGAMENT APONEUROSIS (03/09/2023 9:30 AM REGISTERED PRIVATE DUTY NURSE) Kailash Gary MD - 03/09/2023 9:30 AM REGISTERED PRIVATE DUTY NURSE Gemma Sneed PA ? 03/09/2023 11:29 AM Hand / Upper Extremity Arthrocentesis: R long A1 Performed by: Gemma Sneed PA Authorized by: Gemma Sneed PA ?? Hand/Upper Extremity Injection: ??Consent Given by: ??Patient ??Verbal consent obtained?: Yes ?? Supporting Documentation: ??Indications: ??Pain Procedure Details: ??Condition: trigger finger ?Location: ??Long finger ??Site: ??R long A1 ??Needle Size: ??27 G ??Approach: ??Dorsal ??Ultrasound guidance: No ?Medications: ??40 mg methylPREDNISolone acetate 40 mg/mL; 1 mL lidocaine 10 mg/mL (1 %) ??Patient tolerance: ??Patient tolerated the procedure well with no immediate complications us Gemma JAY IN CLINIC/BEDSIDE ORDERABL ES Final Result documented in this encounter Visit Diagnoses Diagnosis Pain in both hands- Primary Trigger finger, right middle finger Trigger finger, right ring finger documented in this encounter Administered Medications Inactive Administered Medications - up to 3 most recent administrations Medication Order MAR Action Action Date Dose Rate Site lidocaine (XYLOCAINE) 10 mg/mL (1 %) injection 1 mL 1 mL, One-Time Injection, Starting on Wed03/09/23 at 0930, For 1 dose, Indications: Administration of Local AnesthesiaIndications:Admin istration of Local Anesthesia Given 03/09/2023 9:30 AM REGISTERED PRIVATE DUTY NURSE 1 mL Right Middle Finger lidocaine (XYLOCAINE) 10 mg/mL (1 %) injection 1 mL 1 mL, One-Time Injection, Starting on Wed03/09/23 at 0930, For 1 dose, Indications: Administration of Local AnesthesiaIndications:Admin istration of Local Anesthesia Given 03/09/2023 9:30 AM REGISTERED PRIVATE DUTY NURSE 1 mL Right Ring Finger methylPREDNISolone acetate (DEPO-medrol) injection 40 mg 40 mg, intra-articular, One-Time Injection, Starting on Wed03/09/23 at 0930, For 1 doseIndications:Trigger finger, right middle finger,Trigger finger, right ring finger,Pain in both hands Given 03/09/2023 9:30 AM REGISTERED PRIVATE DUTY NURSE 40 mg Right Middle Finger methylPREDNISolone acetate (DEPO-medrol) injection 40 mg 40 mg, intra-articular, One-Time Injection, Starting on Wed03/09/23 at 0930, For 1 doseIndications:Trigger finger, right middle finger,Trigger finger, right ring finger,Pain in both hands Given 03/09/2023 9:30 AM REGISTERED PRIVATE DUTY NURSE 40 mg Right Ring Finger documented in this encounter Orders Outpatient Referral Count Last Ordered Date Fir st Ordered Date AMB REFERRAL TO ORTHOPEDIC HAND 1 3 documented in this encounter Care Teams Printer Helper Relationship Specialty Start Date End Date Kevin Bowles MD [facility] [place] [id number] PCP - General 06/19/16 01/16/24 Eric Crowder MD [address] [facility] [address] [place] [address] Rheumatology 01/18/17 Maico Martin MD [address] [facility] [address] [place] [id number] Consulting Physician Neurology 11/09/22 documented as of this encounter
--- OUTSIDE RECORDS SUMMARY | 2024-04-01 11:17 | XMS_ITS | Encounter Summary ---
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); skilled nursing current use 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 Social History Tobacco Use Types Packs/Day Years [...] on file Legal Sex Female 9:01 PM [employer]EW[employer] Gender Identity Not on file Sexual Orientation Not on file documented as of this encounter Last Filed Vital Signs Vital Sign Reading Time Taken Comments Blood Pressure 130/74 06/14/2023 9:57 AM CDT Pulse 85 06/14/2023 9:57 AM CDT Temperature - - Respiratory Rate - - Oxygen Saturation 98% 06/14/2023 9:57 AM CDT Inhaled Oxygen Concentration - - Weight 117.5 kg (259 lb) 06/14/2023 9:57 AM CDT Height - - Body Mass Index 44.46 11/13/2022 8:30 AM CDT documented in this encounter Ordered Prescriptions Prescription Sig Dispense Quantity Refills Last Filled Start Date End Date hydroxychloroquine (PLAQUENIL) 200 mg tabletIndications: Connective Tissue Disease,auto immune disease Take 1 tablet (200 mg total) by mouth 2 (two) times a day 180 tablet 1 06/14/2023 12/30/2023 leflunomide (ARAVA) 20 mg tabletIndications: Rheumatoid Arthritis Take 1 tablet (20 mg total) by mouth daily 90 tablet 1 06/14/2023 12/30/2023 documented in this encounter Progress Notes * Christa Bueno PA - 06/14/2023 10:30 AM CDT Images from the original note were not included. Subjective/Objective Patient ID: Monica [place] is a 53 y.o. female. Chief Complaint Joint pain HPI Returns for routine follow up. Flared twice since last visit requiring steroids to resolve. Feeling better today. Back on her weight loss journey. Finds she feels better with protein and vegetables in her diet. Had celiac test that was negative. Still notes delayed sensitivity after eating wheat. Thinks she may have MCAS. Seeingallergist. Still having balance issues and saw neuro. Testing was unremarkable but still having symptoms so isnow in physical therapy. Continues to follow with neuro. Eye exam UTD 04/26/23. Denies fevers, infections, rashes, mouth sores, cough, dyspnea, n/v. Joint pain today is /10. AM stiffness = few minutes Review of Systems Constitutional: Negative fo\r fatigue. Negative for chills and fever. HENT: Negative for congestion and mouth sores. Respiratory: Negative for cough and shortness of breath. Cardiovascular: Negative for chest pain. Gastrointestinal: Negative for abdominal pain, diarrhea, nausea and vomiting. Musculoskeletal: Positive for arthralgias. Negative for myalgias. Skin: Negative for rash. Vitals: Vitals BP 130/74 Pulse 85 Wt 117.5 kg (259 lb) LMP (LMP Unknown) SpO2 98% BMI 44.46 kg/m?? Body mass index is 44.46 kg/m??. Bold X is a current medication. Medication Taking/taken D/C or avoidance reason Hydroxychloroquine X Methotrexate -started 09/02/2017 -stopped 05/2022 x Elevated LFTs, nausea (took zofran) Leflunomide -started 05/2022 X Azathioprine Sulfasalazine x Inconsistent dosing so was d/c CellCept Humira Enbrel Simponi Cimzia Simponi aria Remicade Cosentyx Taltz Orencia Stelara Tremfya Xeljanz Rinvoq Actemra Kevzara Olumiant Kineret Benlysta Rituxan Otezla NSAIDs Prednisone Physical Exam Constitutional: oriented to person, place, and time. appears well-developed and well-nourished. HENT: Head: Normocephalic. Eyes: Conjunctivae are normal. Pupils are equal and round. Pulmonary/Chest: Effort normal. Musculoskeletal: See cdai. Neurological: alert and oriented to person, place, and time. Skin: Skin is warm and dry. No rash noted. Psychiatric: normal mood and affect. speech is normal and behavior is normal. Cognition and memory are normal. Patient Global: 10 mm Provider Global: 10 mm CDAI: 2 In remission: 0-3 Low: 4-10 Moderate: 11-22 High: 23 or > Labs Lab Results Component Value Date WBC 4.9 05/29/2023 HGB 14.6 05/29/2023 HCT 43.0 05/29/2023 MCV 88.5 05/29/2023 Lab Results Component Value Date GLUCOSE 89 05/29/2023 CALCIUM 9.4 05/29/2023 SODIUM 139 05/29/2023 POTASSIUM 4.1 05/29/2023 CO2 26 05/29/2023 CHLORIDE 103 05/29/2023 BUNSER 16 05/29/2023 CREATININE 0.70 05/29/2023 Lab Results Component Value Date ALT 22 05/29/2023 AST 20 05/29/2023 ALKPHOS 73 05/29/2023 BILITOT 0.7 05/29/2023 Lab Results Component Value Date SEDRATE 19 05/29/2023 Lab Results Component Value Date CRP 7.9 05/29/2023 US right hand/wrist (06/02/17): Moderate synovitis with [...] throughout the wrist, MCP, and PIP joints. US L hand/wrist (05/29/2021): Marked synovial thickening at the wrist with grade 1 power Doppler. Moderate 2nd and 3rd PIP synovial thickening on examination which will have to be correlated clinically. Compared to the hand US from 06/02/17 there is less thickening in the wrist but overall little change. 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 Improvement of synovitis and tenderness noted on peripheral exam compared to last visit. Continuing to lose weight through diet/exercise and finds certain foods trigger joint symptoms. Continue leflunomide 20mg daily and HCQ 400mg daily. Previously advised patient of risk of QT prolongation with zofran and HCQ. Recent labs reviewed with patient. Continue routine eye exams to monitor for plaquenil toxicity. Continue routine labs every 3 months via standing order. Follow up in 6 months. Sooner if needed. 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 Orders: - Comprehensive metabolic panel; Standing - CBC with auto differential; Standing - Erythrocyte sedimentation rate; Standing - CRP (acute phase); Standing Other orders - leflunomide (ARAVA) 20 mg tablet; Take 1 tablet (20 mg total) by mouth daily - hydroxychloroquine (PLAQUENIL) 200 mg tablet; Take 1 tablet (200 mg total) by mouth 2 (two) timesa day Christa Bueno PA-C Cosigned by Eric Crowder MD at 06/14/2023 5:17 PM CDT documented in this encounter Miscellaneous Notes * Assessment & Plan Note - Christa Bueno PA - 06/14/2023 10:52 AM CDTAssociated Problem(s): 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/HCC) ([facility]) Cdai in remission. Improvement of synovitis and tenderness noted on peripheral exam compared to last visit. Continuing to lose weight through diet/exercise and finds certain foods trigger joint symptoms. Continue leflunomide 20mg daily and HCQ 400mg daily. Previously advised patient of risk of QT prolongation with zofran and HCQ. Recent labs reviewed with patient. Continue routine eye exams to monitor for plaquenil toxicity. Continue routine labs every 3 months via standing order. Follow up in 6 months. Sooner if needed. 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 documented in this encounter Plan of Treatment Scheduled Orders Name Type Priority Associated Diagnoses Orde r Schedule Comprehensive metabolic panel Lab Routine 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/HCC) (HCC) 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 [id number] for 2 Occurrences starting 06/14/2023 until 06/13/2024, 1 completed CBC with auto differential Lab Routine 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/HCC) (HCC) 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 [id number] for 2 Occurrences starting 06/14/2023 until 06/13/2024, 1 completed Erythrocyte sedimentation rate Lab Routine 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/HCC) (HCC) skilled nursing current use 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 [id number] for 2 Occurrences starting 06/14/2023 until 06/13/2024, 1 completed CRP (acute phase) Lab Routine 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/HCC) (HCC) 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 [id number] for 2 Occurrences starting 06/14/2023 until 06/13/2024, 1 completed documented as of this encounter Procedures Procedure Name Priority Date/Time Associated Diagnosis Comments CBC WITH AUTO DIFFERENTIAL Routine 12/17/2023 9:31 AM CDT 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/HCC) (HCC) skilled nursing current use 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 ERYTHROCYTE SEDIMENTATION RATE Routine 12/17/2023 9:31 AM CDT 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/HCC) (HCC) skilled nursing current use 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 CRP (ACUTE PHASE) Routine 12/17/2023 9:3 1 AM CDT 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/HCC) (HCC) 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 COMPREHENSIVE METABOLIC PANEL Routine 12/17/2023 9:31 AM CDT 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/HCC) (HCC) 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 documented in this encounter Results * CRP (acute phase) (12/17/2023 9:31 AM CDT) C-RP 5.3 <8.0 mg/L [facility] Blood 12/17/2023 9:31 AM CDT 12/17/2023 9:32 AM CDT Christa JAY LAB BLOOD ORDERABLES Final Result [facility] [id number] [phone] * Erythrocyte sedimentation rate (12/17/2023 9:31 AM CDT) Erythrocyte sedimentation rate 9 < OR = 30 mm/h [facility] Blood 12/17/2023 9:31 AM CDT 12/17/2023 9:32 AM CDT Christa JAY LAB BLOOD ORDERABLES Final Result [facility] [id number] [id number] * CBC with auto differential (12/17/2023 9:31 AM CDT) WBC 4.4 3.8 - 10.8 Thousand/u L [facility] RBC, POC 4.79 3.80 - 5.10 Million/uL [facility] Hgb 14.3 11.7 - 15.5 g/dL [facility] Hct 44.2 35.0 - 45.0 % [facility] MCV 92.3 80.0 - 100.0 fL [facility] MCH 29.9 27.0 - 33.0 pg [facility] MCHC 32.4 32.0 - 36.0 g/dL [facility] Rdw 13.0 11.0 - 15.0 % [facility] Platelets 195 140 - 400 Thousand/u L [facility] MPV 9.8 7.5 - 12.5 fL [facility] Neutrophils, abs 1,760 1,500 - 7,800 cells/uL [facility] Lymphocytes, abs 1,751 850 - 3,900 cells/uL [facility] Monocyte abs 532 200 - 950 cells/uL [facility] Eosinophils, abs 334 15 - 500 cells/uL [facility] Basophils, abs 22 0 - 200 cells/uL [facility] Neutrophils 40 % [facility] Lymphocyte pct 39.8 % [facility] Monocytes 12.1 % [facility] Eosinophils 7.6 % [facility] Basophils 0.5 % [facility] Blood 12/17/2023 9:31 AM CDT 12/17/2023 9:32 AM CDT Christa JAY LAB BLOOD ORDERABLES Final Result [facility] [id number] [address] [phone] * (ABNORMAL) Comprehensive metabolic panel (12/17/2023 9:31 AM CDT) Pathologist [facility] Glucose 86 65 - 99 mg/dL [facility] Comment: ? Fasting reference interval BUN 13 7 - 25 mg/dL [facility] Creatinine 0.70 0.50 - 1.03 mg/dL [facility] eGFR 103 > OR = 60 mL/min/1.7 3m2 [facility] BUN/creat ratio SEE NOTE: 6 - 22 (calc) [facility] Comment: ?? Not Reported: BUN and Creatinine are within ?? reference range. ? Sodium 140 135 - 146 mmol/L [facility] Potassium, pl 4.2 3.5 - 5.3 mmol/L [facility] Chloride 104 98 - 110 mmol/L [facility] CO2 29 20 - 32 mmol/L [facility] Calcium 9.7 8.6 - 10.4 mg/dL [facility] Protein, sr 6.7 6.1 - 8.1 g/dL [facility] Albumin 4.2 3.6 - 5.1 g/dL [facility] GLOBULIN 2.5 1.9 - 3.7 g/dL (calc) [facility] Alb/glob ratio 1.7 1.0 - 2.5 (calc) [facility] Bilirubin, total 0.7 0.2 - 1.2 mg/dL [facility] Alk phos 68 37 - 153 U/L [facility] AST 23 10 - 35 U/L [facility] ALT (SGPT) 33(H) 6 - 29 U/L [facility] Blood 12/17/2023 9:31 AM CDT 12/17/2023 9:32 AM CDT Christa JAY LAB BLOOD ORDERABLES Final Result [facility] [id number] [phone] documented in this encounter Visit Diagnoses Diagnosis 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 Unspecified inflammatory polyarthropathy 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 documented in this encounter Discontinued Medications Medication Sig Discontinue Reason Start Date End Da te hydrOXYchloroQUINE (PLAQUENIL) 200 mg tabletIndications:Connec tive Tissue Disease,auto immune disease Take 1 tablet (200 mg total) by mouth 2 (two) times a day Reorder 12/14/2022 06/14/2023 leflunomide (ARAVA) 20 mg tabletIndications:Rheuma toid Arthritis Take 1 tablet (20 mg total) by mouth daily Reorder 12/14/2022 06/14/2023 documented as of this encounter Care Teams Front Load Trash Truck Driver Relationship Specialty Start Date End Date Kevin Bowles MD [facility] [address] [place] [address] PCP - General 06/19/16 01/16/24 Eric Crowder MD [address] [facility] [address] [place] [address] Rheumatology 01/18/17 Maico Martin MD [address] [facility] [address] [place] [address] Consulting Physician Neurology 11/09/22 documented as of this encounter
--- OUTSIDE RECORDS SUMMARY | 2024-04-01 11:17 | XMS_ITS | Encounter Summary ---
Author Organization [facility] Healthcare Address [address] [place] [address] Care Team Providers Care Ordnance Technician Name Role Phone Kevin Bowles MD Primary Care Provider [phone] Eric Crowder MD Unavailable Maico Martin MD Unavailable [phone] Reason for Referral * MRI/CAT/PET Scan (Routine) - Closed Specialty Diagnoses / Procedures Referred By Marc kahn Referred To Contact Radiology Diagnoses Imbalance Procedures CTA Head Neck W WO Contrast Maico Martin MD [address] [place] [address] [address] [place] [address] Phone: tel: fax: [address] [phone] Referral ID Status Reason Start Date Expiration Date Visits Re quested Visits Authorized [id number] Closed 11/13/2022 12/13/2023 1 1 Reason for Visit * MRI/CAT/PET Scan (Routine) - Closed Specialty Diagnoses / Procedures Referred By Contlatesha t Referred To Contact Radiology Diagnoses Imbalance Procedures CTA Head Neck W WO Contrast Maico Martin MD [address] [place] [address] [address] [place] [address] Phone: tel: fax: [address] [address] Referral ID Status Reason Start Date Expiration Date Visits Re quested Visits Authorized [id number] Closed 11/13/2022 12/13/2023 1 1 Encounter Details Date Type Department Care Team (Latest Contact Info) Description 12/01/2022 8:00 AM CDT - 12/01/2022 11:59 PM CDT Hospital Encounter [facility] [address] [place] [address] Imbalance Discharge Disposition: Discharge to home or self care Social History Tobacco Use Types Packs/Day Years [...] on file Legal Sex Female 9:01 PM [employer] Gender Identity Not on file Sexual Orientation Not on file documented as of this encounter Medications at Time of Discharge acetaminophen (TYLENOL) 325 mg tablet take 1 - 2 Tablet by oral route 3 times every day 0 0 06/03/2015 cloNIDine (CATAPRES) 0.2 mg tablet Take 1 tablet (0.2 mg total) by mouth 04/08/2017 ibuprofen 200 mg tab/cap Take 1 tablet by mouth levothyroxine (SYNTHROID, LEVOTHROID) 175 mcg tablet take 1 tablet by oral route every day 0 0 06/03/2015 lifitegrast 5 % dropperette Administer into affected eye(s) loratadine (CLARITIN) 10 mg tablet take 1 tablet by oral route every day 0 0 06/03/2015 montelukast (SINGULAIR) 10 mg tablet Take 1 tablet (10 mg total) by mouth nightly traZODone (DESYREL) 50 mg tablet Take 1 tablet (50 mg total) by mouth as needed acetaminophen (TYLENOL) 500 mg tablet Take 1 tablet (500 mg total) by mouth cloNIDine (CATAPRES-TTS) 0.2 mg/[address] 0.2 mg on the skin once a week. 3 diphenhydrAMINE 25 mg capsule Take by mouth 12/30/19 2 4 ergocalciferol (VITAMIN D) 50,000 unit capsule Take 1 capsule (50,000 Units total) by mouth once a week 12 capsule 1 10/04/2018 3 ergocalciferol (VITAMIN D) 50,000 unit capsule Take 1 capsule (50,000 Units total) by mouth once a week 12/14/2016 4 folic acid (FOLVITE) 1 mg tablet Take 1 tablet (1 mg total) by mouth daily 05/31/2018 4 hydrOXYchloroQUIN E (PLAQUENIL) 200 mg tabletIndications :Connective Tissue Disease,auto immune disease Take 1 tablet (200 mg total) by mouth 2 (two) times a day 180 tablet 09/18/2022 3 hydrOXYchloroQUIN E (PLAQUENIL) 200 mg tablet Take 1 tablet (200 mg total) by mouth 2 (two) times a day 11/12/2016 3 ibuprofen (ADVIL,MOTRIN) 200 mg tablet take 1 tablet by oral route every 6 hours as needed with food 0 0 06/03/2015 3 leflunomide (ARAVA) 20 mg tabletIndications :Rheumatoid Arthritis Take 1 tablet (20 mg total) by mouth daily 90 tablet 09/18/2022 3 levothyroxine (Synthroid) 175 mcg tablet 3 methotrexate 2.5 mg tablet TAKE 6 TABLETS BY MOUTH ONCE WEEKLY 04/25/2018 3 mupirocin (BACTROBAN) 2 % ointment 11/10/2022 4 nortriptyline (Pamelor) 25 mg capsule 4 predniSONE (DELTASONE) 20 mg tablet Take three tablets PO once daily x 3 days, 2 tablets daily x 3 days, one tablet daily x 2 days Reasons: RA flare 03/13/2021 3 PROAIR HFA 90 mcg/actuation inhaler 03/24/2017 4 traZODone (DESYREL) 50 mg tablet Take 50 mg by mouth nightly. 3 documented as of this encounter Discharge Disposition Disposition Code Departure Means Destination Discharge to home or self care documented in this encounter Plan of Treatment Not on file documented as of this encounter Procedures Procedure Name Priority Date/Time Associated Diagnosis Comments CTA HEAD NECK W WO CONTRAST Schedule Routine, Read Routine (OP Routine) 12/01/2022 8:28 AM CDT Imbalance documented in this encounter Results * CTA Head Neck W WO Contrast (12/01/2022 8:28 AM CDT) Anatomical Region Laterality Modality Head and Neck N/A Computed Tomogra phy 12/01/2022 8:37 AM CDT Narrative 12/01/2022 9:01 AM CDT EXAM DESCRIPTION: ?? CTA HEAD NECK W WO CONTRAST REASON FOR STUDY: ?? Vertigo, central ?? Patient complains of feeling a off balance that began in December 2021 worsening over the last 2 months. Patient also feels a lump under right ear area marked with CT marker been there for 3 years ? History: Sjgren, zahra's, ? TECHNIQUE: Axial images were first obtained through the brain without contrast. ?? Axial dynamic scanning technique with dynamic contrast enhancement through the intracranial and extracranial carotid and vertebral arteries. Multiplanar reconstruction. All stenosis measurements are based on NASCET criteria. ??3D MIP images rendered on scanning unit and reviewed at time of interpretation. Automated exposure control was used as a dose optimization technique for this examination. CONTRAST TYPE/DOSE: ?? 100mL of IOVERSOL 350 MG IODINE/ML INTRAVENOUS SYRINGE ?? injected via ?? intravenous COMPARISON: ?? Neck CT 12/12/2015 FINDINGS: BRAIN CEREBRUM: ?? No hemorrhage, edema or mass effect. No recent infarct. Brain parenchyma volume well-maintained. WHITE MATTER: ?? Normal. POSTERIOR FOSSA: ?? No masses. No hemorrhage. No evidence for acute infarction. EXTRA-AXIAL SPACES: ?? No fluid collections. No masses. ORBITS: ?? No significant abnormality. CALVARIUM: ?? No fracture. SINUSES/MASTOIDS: ?? No fluid or mucosal thickening. OTHER: ?? No other significant abnormality. INTRACRANIAL VESSELS ENTERPRISE OF [place]: ?? The anterior, middle, posterior cerebral arteries are all patent. ??No evidence of aneurysm or focal stenosis. POSTERIOR CIRCULATION: ?? The distal vertebral arteries are patent as is the basilar artery. No aneurysm. BRAIN: ?? No gross enhancing lesions as visualized. CAROTID CTA: Quantum mottle degrades assessment of the lower cervical vasculature. ??Within this limitation RIGHT CAROTIDS: ?? No internal, external or common carotid stenosis. LEFT CAROTIDS: ?? No internal, external or common carotid stenosis. ?? LEFT VERTEBRAL: Dominant. ?? Patent. ??No significant stenosis. No dissection. RIGHT VERTEBRAL: ??patent. ??No significant stenosis. No dissection. AORTIC ARCH: ?? Normal three-vessel origin. Bilateral subclavian arteries are patent. No dissection. NECK SOFT TISSUE: ?? Within the right parotid gland there is a well-circumscribed 19 x 11 by 30 mm (previously 18 x 11 x 29 mm) predominantly fat attenuation mass. ??However, there is some internal relative hyperdensity along the medial aspect of the mass (for example image 189 of series 5) . INCLUDED LUNGS: ?? No acute abnormality. No worrisome nodules. OTHER: ?? No other significant finding. IMPRESSION: BRAIN: No acute findings. INTRACRANIAL CTA: Normal. CAROTID CTA: No significant stenosis of the extracranial carotid or vertebral arteries. OTHER: 3 cm right parotid fat containing mass with areas of heterogeneous attenuation is not substantially changed since 12/12/2015 and is favored to represent a lipoma. ??Continued clinical and imaging follow-up is recommended to assess stability, given heterogeneous attenuation. THIS IS AN ELECTRONICALLY VERIFIED FINAL REPORT 12/01/2022 9:01 AM - Electronically signed by ??Len Mina M.D. MZ D: ??12/01/2022 9:01 AM T: Report ID: [id number] Reading Location: ??[id number] Procedure Note Len Mina MD - 12/01/2022 EXAM DESCRIPTION: CTA HEAD NECK W WO CONTRAST REASON FOR STUDY: Vertigo, central Patient complains of feeling a off balance that began in December 2021 worsening over the last 2 months. Patient also feels a lump under rightear area marked with CT marker been there for 3 years History: Sjgren, zahra's, TECHNIQUE: Axial images were first obtained through the brain without contrast. Axial dynamic scanning technique with dynamic contrast enhancement throughthe intracranial and extracranial carotid and vertebral arteries. Multiplanar reconstruction. All stenosis measurements are based on NASCET criteria. 3D MIP images rendered on scanning unit and reviewed at time of interpretation. Automated exposure control was used as a dose optimization technique forthis examination. CONTRAST TYPE/DOSE: 100mL of IOVERSOL 350 MG IODINE/ML INTRAVENOUSSYRINGE injected via intravenous COMPARISON: Neck CT 12/12/2015 FINDINGS: BRAIN CEREBRUM: No hemorrhage, edema or mass effect. No recent infarct. Brain parenchyma volume well-maintained. WHITE MATTER: Normal. POSTERIOR FOSSA: No masses. No hemorrhage. No evidence for acuteinfarction. EXTRA-AXIAL SPACES: No fluid collections. No masses. ORBITS: No significant abnormality. CALVARIUM: No fracture. SINUSES/MASTOIDS: No fluid or mucosal thickening. OTHER: No other significant abnormality. INTRACRANIAL VESSELS ENTERPRISE OF [place]: The anterior, middle, posterior cerebral arteries areall patent. No evidence of aneurysm or focal stenosis. POSTERIOR CIRCULATION: The distal vertebral arteries are patent as isthe basilar artery. No aneurysm. BRAIN: No gross enhancing lesions as visualized. CAROTID CTA: Quantum mottle degrades assessment of the lower cervical vasculature. Within this limitation RIGHT CAROTIDS: No internal, external or common carotid stenosis. LEFT CAROTIDS: No internal, external or common carotid stenosis. LEFT VERTEBRAL: Dominant. Patent. No significant stenosis. Nodissection. RIGHT VERTEBRAL: patent. No significant stenosis. No dissection. AORTIC ARCH: Normal three-vessel origin. Bilateral subclavian arteriesare patent. No dissection. NECK SOFT TISSUE: Within the right parotid gland there is a well-circumscribed 19 x 11 by 30 mm (previously 18 x 11 x 29 mm)predominantly fat attenuation mass. However, there is some internal relativehyperdensity along the medial aspect of the mass (for example image 189 of series 5) . INCLUDED LUNGS: No acute abnormality. No worrisome nodules. OTHER: No other significant finding. IMPRESSION: BRAIN: No acute findings. INTRACRANIAL CTA: Normal. CAROTID CTA: No significant stenosis of the extracranial carotid or vertebral arteries. OTHER: 3 cm right parotid fat containing mass with areas of heterogeneousattenuation is not substantially changed since 12/12/2015 and is favored to representa lipoma. Continued clinical and imaging follow-up is recommended to assess stability, given heterogeneous attenuation. THIS IS AN ELECTRONICALLY VERIFIED FINAL REPORT 12/01/2022 9:01 AM - Electronically signed by Len Mina M.D. MZ T: Report ID: [id number] Reading Location: [id number] Maico Martin MD IMG CT PROCEDURES Final Result documented in this encounter Visit Diagnoses Diagnosis Imbalance Abnormality of gait documented in this encounter Administered Medications Inactive Administered Medications - up to 3 most recent administrations Medication Order MAR Action Action Date Dose Rate Site ioversoL (OPTIRAY 350) syringe 100 mL 100 mL, intravenous, Once in imaging, contrast, Starting on Wed12/01/22 at 0806, For 1 dose Contrast Given 12/01/2022 8:24 AM CDT 100 mL documented in this encounter Care Teams Ordnance Technician Relationship Specialty Start Date End Date Kevin Bowles MD [address] [facility] [address] [place] [address] PCP - General 06/19/16 01/16/24 Eric Crowder MD [address] [facility] [address] [place] [address] Rheumatology 01/18/17 Maico Martin MD [address] [facility] [address] [place] [address] Consulting Physician Neurology 11/09/22 documented as of this encounter
--- OUTSIDE RECORDS SUMMARY | 2024-04-01 11:17 | XMS_ITS | Encounter Summary ---
Author Organization [facility] Address [address] [place] [address] Phone Care Team Providers Care Magazine Grinder Loader Name Role Phone Kevin Bowles MD Primary Care Provider [phone] Eric Crowder MD Unavailable [phone] Maico Martin MD Unavailable [phone] Encounter Details Date Type Department Care Team (Late st Contact Info) Description 04/29/2023 Orders Only [facility] [address] [place] [address] Eric Crowder MD [address] [facility] [address] [place] [address] Social History Tobacco Use Types Packs/Day Years [...] on file Legal Sex Female 9:01 PM [employer] Gender Identity Not on file Sexual Orientation Not on file documented as of this encounter Ordered Prescriptions Prescription Sig Dispense Quantity Refills Last Filled Start Date End Date predniSONE (DELTASONE) 10 mg tablet Take 2 tabs daily for 7 days then take 1 tab daily for 7 days then stop 21 tablet 04/29/2023 12/30/2023 documented in this encounter Plan of Treatment Not on file documented as of this encounter Visit Diagnoses Not on filedocumented in this encounter Discontinued Medications Medication Sig Discontinue Reason Start Date End Da te predniSONE (DELTASONE) 5 mg tablet Take 4 tablets by mouth daily x3 days, then 3 tabs daily x3 days, then 2 tabs daily x3 days, then 1 tab daily x3 days. 12/22/2022 04/29/2023 documented as of this encounter Care Teams Magazine Grinder Loader Relationship Specialty Start Date End Date Kevin Bowles MD [address] [facility] [address] [place] [address] PCP - General 06/19/16 01/16/24 Eric Crowder MD [address] [facility] [address] [place] [address] Rheumatology 01/18/17 Maico Martin MD [address] [facility] [address] [place] [address] Consulting Physician Neurology 11/09/22 documented as of this encounter
--- OUTSIDE RECORDS SUMMARY | 2024-04-01 11:17 | XMS_ITS | Encounter Summary ---
Author Organization [facility] Healthcare Address [address] [place] [address] Care Team Providers Care Early Childhood Education Specialist Name Role Phone Eric Crowder MD Unavailable Maico Martin MD Unavailable [phone] Herminia Kumar MD Unavailable Kevin Bowles MD Unavailable [phone] Reason for Visit * Reason Onset Date Comments Scheduling Appointments 01/17/2024 New pt - R Lipoma Encounter Details Date Type Department Care Team (Late st Contact Info) Description 01/17/2024 [facility]phone [facility] [address] [facility] [address] [place] [phone] Chen Alvarado Scheduling Appointments (New pt - R Lipoma ) Social History Tobacco Use Types Packs/Day Years [...] on file 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 NEW Referring or Requested Provider? [facility] Insurance Verified? Is this a new diagnosis or problem/Which breast? RIGHT BREAST LIPOMA UPPER QUADRANT; DOESN'T, HURT,MOVES, GROWN IN SIZE MORE RECENTLY (5cm) Current Breast Symptoms: 1. Any of the following symptoms (Ex. Fever, chills, redness, swelling, drainage, warmth)? NO 2. Quality, Intensity and Length of symptoms? (Ex. Achy, Sharp, dull, constant)? NO 3. What kinds of treatment have you tried? What makes it better? What make it worse? NA Previous Breast surgery (including breast lifts/reductions/implants)? If yes, what type? When? NO What tests/imaging/biopsies have been performed in the last 3 years? (Dates, hospital?) [facility]; R US/NASRIN DIAG MAMM IMPRESSION: 1. 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 However, given the size surgical removal should be considered. This was discussed with the patient and all her questions were answered. Management of any palpable abnormality should be based on clinical grounds. The patient was also given our breast surgeon on staff contact information so she can schedule a surgical consult. Any testing still pending? NO History of Breast Cancer? NO Family History? NO Has any genetic testing been done? NO If cancer patient from outside [facility] - Are you interested in seeing the oncology team at [facility]? (If YES, send email to team) Best number to reach you at if we have additional questions? [phone] Items pending? NO Added to tracking? SCHEDULED documented in this encounter Plan of Treatment Not on file documented as of this encounter Visit Diagnoses Not on filedocumented in this encounter Care Teams Early Childhood Education Specialist Relationship Specialty Start Date End Date Eric Crowder MD [address] [facility] [address] [place] [address] Rheumatology 01/18/17 Maico Martin MD [address] [facility] [address] [place] [address] Consulting Physician Neurology 11/09/22 Herminia Kumar MD [address] [facility] [address] [place] [address] Consulting Physician General Surgery 01/17/24 Kevin Bowles MD [address] [facility] [address] [place] [address] Referring Physician Family Medicine 01/17/24 documented as of this encounter
--- OUTSIDE RECORDS SUMMARY | 2024-04-01 11:17 | XMS_ITS | Encounter Summary ---
Author Organization [facility] Healthcare Address [address] [place] [address] Care Team Providers Care Teacher Physically Impaired Name Role Phone Kevin Bowles MD Primary Care Provider [phone] Eric Crowder MD Unavailable Maico Martin MD Unavailable [phone] Reason for Visit * Diagnostic Imaging (Routine) - Pending Review Specialty Diagnoses / Procedures Referred By Contac t Referred To Contact Diagnoses Right hand pain Procedures XR Hand Right 3+ View Sampson Montenegro MD [address] [facility] [address] [place] [address] Phone: tel: fax: [facility] Referral ID Status Reason Start Date Expiration Date V isits Requested Visits Authorized [id number] Pending Review 01/08/2024 02/06/2025 1 1 Encounter Details Date Type Department Care Team (Latest Contact Info) Description 01/08/2024 8:29 AM CDT - 01/08/2024 11:59 PM CDT Hospital Encounter [facility] [address] [place] [address] Discharge Disposition: Discharge to home or self [...] on file 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 Gender Identity Not on file Sexual Orientation Not on file documented as of this encounter Medications at Time of Discharge acetaminophen (TYLENOL) 325 mg tablet take 1 - 2 Tablet by oral route 3 times every day 0 0 06/03/2015 celecoxib (CeleBREX) 200 mg capsule 01/08/2024 cloNIDine (CATAPRES) 0.2 mg tablet Take 1 tablet (0.2 mg total) by mouth 04/08/2017 hydroxychloroquin e (PLAQUENIL) 200 mg tabletIndications :Connective Tissue Disease,auto immune disease Take 1 tablet (200 mg total) by mouth 2 (two) times a day 180 tablet 1 12/30/2023 ibuprofen 200 mg tab/cap Take 1 tablet by mouth leflunomide (ARAVA) 20 mg tabletIndications :Rheumatoid Arthritis Take 1 tablet (20 mg total) by mouth daily 90 tablet 1 12/30/2023 5 levothyroxine (SYNTHROID, LEVOTHROID) 175 mcg tablet take [...] (50 mg total) by mouth as needed ergocalciferol (VITAMIN D) 50,000 unit capsule Take 1 capsule (50,000 Units total) by mouth once a week 12/14/2016 4 folic acid (FOLVITE) 1 mg tablet Take 1 tablet (1 mg total) by mouth daily 05/31/2018 4 documented as of this encounter Discharge Disposition Disposition Code Departure Means Destination Discharge to home or self care documented in this encounter Plan of Treatment Not on file documented as of this encounter Procedures Procedure Name Priority Date/Time Associated Diagnosis Comments XR HAND RIGHT 3 OR MORE VIEWS Schedule Routine, Read Routine (OP Routine) 01/08/2024 8:35 AM CDT Right hand pain documented in this encounter Results * XR Hand Right 3+ View (01/08/2024 8:35 AM CDT) Anatomical Region Laterality Modality Upper Extremities, Hand Right Computed Radiography 01/08/2024 10:1 3 AM CDT Impressions 01/08/2024 10:13 AM CDT 1. ??No acute fracture of the right hand. 2. ??Unchanged wrist and 3rd metacarpal head erosions. Electronically signed by: Shiva Hannon MD Narrative 01/08/2024 10:13 AM CDT EXAMINATION: XR HAND RIGHT 3 OR MORE VIEWS HISTORY: ??Hand pain. FINDINGS: Comparison is made to 03/09/2023. No acute fracture. ??Joint spaces are preserved. ??Unchanged cysts/erosions at the proximal aspect of the lunate ulnar aspect. Unchanged erosions at the 3rd metacarpal head and distal radius lunate fossa. Procedure Note Shiva Hannon MD - 01/08/2024 EXAMINATION: XR HAND RIGHT 3 OR MORE VIEWS HISTORY: Hand pain. FINDINGS: Comparison is made to 03/09/2023. No acute fracture. Joint spaces are preserved. Unchanged cysts/erosions at the proximal aspect of the lunate ulnar aspect. Unchanged erosions at the 3rd metacarpal head and distal radius lunate fossa. IMPRESSION: 1. No acute fracture of the right hand. 2. Unchanged wrist and 3rd metacarpal head erosions. Electronically signed by: Shiva Hannon MD us Sampson Montenegro MD IMG XR PROCEDURES Final Res ult documented in this encounter Visit Diagnoses Not on filedocumented in this encounter Care Teams Teacher Physically Impaired Relationship Specialty Start Date End Date Kevin Bowles MD [facility] [address] [address] PCP - General 06/19/16 01/16/24 Eric Crowder MD [address] [facility] [address] [place] [address] Rheumatology 01/18/17 Maico Martin MD [address] [facility] [address] [place] [address] Consulting Physician Neurology 11/09/22 documented as of this encounter
--- OUTSIDE RECORDS SUMMARY | 2024-04-01 11:17 | XMS_ITS | Encounter Summary ---
Author Organization [facility] Healthcare Address [address] [place] [address] Care Team Providers Care Technical Support Analyst Name Role Phone Kevin Bowles MD Primary Care Provider [phone] Eric Crowder MD Unavailable [phone] Maico Martin MD Unavailable Reason for Referral * Diagnostic Imaging (Routine) - Closed Specialty Diagnoses / Procedures Referred By Marc t Referred To Contact Diagnoses Mass of right breast, unspecified quadrant Procedures Diagnostic Mammogram Bilateral W Cynthia Wayne, FISHERIES TECHNICIAN [address] [place] [address] Phone: tel: fax: [address] [address] Referral ID Status Reason Start Date Expiration Date Visits Re quested Visits Authorized [id number] Closed 12/29/2023 01/27/2025 1 1 Reason for Visit * Diagnostic Imaging (Routine) - Closed Specialty Diagnoses / Procedures Referred By Marc kahn Referred To Contact Diagnoses Mass of right breast, unspecified quadrant Procedures Diagnostic Mammogram Bilateral W Cynthia Wayne, FISHERIES TECHNICIAN [address] [place] [address] Phone: tel: fax: [facility] [address] [place] [address] Referral ID Status Reason Start Date Expiration Date Visits Re quested Visits Authorized [id number] Closed 12/29/2023 01/27/2025 1 1 Encounter Details Date Type Department Care Team (Latest Contact Info) Description 01/11/2024 7:50 AM CDT - 01/11/2024 11:59 PM CDT Hospital Encounter [facility] - Imaging [address] [place] [address] Mass of right breast, unspecified quadrant Discharge Disposition: Discharge to home or self [...] on file 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 Gender Identity Not on file Sexual Orientation [...] by mouth daily 90 tablet 1 12/30/2023 levothyroxine (SYNTHROID, LEVOTHROID) 175 mcg tablet take [...] Procedure Name Priority Date/Time Associated Diagnosis Comments DIAGNOSTIC MAMMOGRAM BILATERAL W FELIPE Schedule Routine, Read Routine (OP Routine) 01/11/2024 8:20 AM CDT Mass of right breast, unspecified quadrant documented in this encounter Results * Diagnostic Mammogram Bilateral W Felipe (01/11/2024 8:20 AM CDT) Anatomical Region Laterality Modality Breast Bilateral Mammography 01/11/2024 8:54 AM CDT Impressions 01/11/2024 8:54 AM CDT 1. 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 ??This is benign. However, given the size surgical removal should be considered. ??This was discussed with the patient and all her questions were answered. Management of any palpable abnormality should be based on clinical grounds. ??The patient was also given our breast surgeon on staff contact information so she can schedule a surgical consult. OVERALL ASSESSMENT: BI-RADS CATEGORY 2: Benign ?? RECOMMENDATION: ??Annual screening mammography in 1 year is recommended as well as clinical follow-up and surgical consult. Electronically signed by: Carmen Diallo M.D. Narrative 01/11/2024 8:54 AM CDT EXAM: US BREAST RIGHT LIMITED, DIAGNOSTIC MAMMOGRAM BILATERAL W FELIPE CLINICAL HISTORY: Right breast lump that has grown in size. ??No other symptoms. TECHNIQUE: Bilateral full-field digital diagnostic mammography with computer aided detection. ??3-D tomosynthesis imaging performed. COMPARISON: ??Multiple prior exams dating back to 11/21/2014 FINDINGS: The breasts are almost entirely fat. There are no suspicious calcifications, masses, or areas of architectural distortion in the left breast. ??In the right breast, the BB corresponds to a fat-containing mass with a thin capsule. Right breast ultrasound: Focused ultrasound was performed of the right breast in the upper inner quadrant. ??At approximately 1:00, 15 cm from the nipple is a smoothly marginated hyperechoic mass that measures 5 x 1.6 x 3.4cm. ??Previously, this measured 3.8 x 1.4 x 2.4 cm. ??This is most consistent with a growing lipoma ??since 11/21/2014. Cynthia Carroll FISHERIES TECHNICIAN IMG MAMMO PROCEDURES Joi l Result documented in this encounter Visit Diagnoses Diagnosis Mass of right breast, unspecified quadrant documented in this encounter Care Teams Technical Support Analyst Relationship Specialty Start Date End Date Kevin Bowles MD [address] [place] [address] PCP - General 06/19/16 01/16/24 Eric Crowder MD [address] [facility] [address] [place] [address] Rheumatology 01/18/17 Maico Martin MD [address] [facility] [address] [place] [address] Consulting Physician Neurology 11/09/22 documented as of this encounter
--- OUTSIDE RECORDS SUMMARY | 2024-04-01 11:17 | XMS_ITS | Encounter Summary ---
Author Organization [facility] Healthcare Address [address] [place] [address] Care Team Providers Care Mid Level Business Analyst Name Role Phone Eric Crowder MD Unavailable [phone] Maico Martin MD Unavailable [phone] Herminia Kumar MD Unavailable [phone] Kevin Bowles MD Unavailable [phone] Kevin Bowles MD Primary Care Provider [phone] Reason for Visit * Reason Comments Sagittal Imbalance Encounter Details Date Type Department Care Team (Late st Contact Info) Description 02/02/2024 8:30 AM DIRECT MARKETING COORDINATOR Office Visit [facility] Medical Group Neurology [address] [place] [phone] Maico Martin MD [address] [place] [phone] Imbalance (Primary Dx) Social History Tobacco Use Types [...] on file Legal Sex Female 9:01 PM DIRECT MARKETING COORDINATOR Gender Identity Not on file Sexual Orientation Not on file documented as of this encounter Last Filed Vital Signs Vital Sign Reading Time Taken Comments Blood Pressure 132/80 02/02/2024 8:26 AM DIRECT MARKETING COORDINATOR Pulse 67 02/02/2024 8:26 AM DIRECT MARKETING COORDINATOR Temperature - - Respiratory Rate - - Oxygen Saturation 99% 02/02/2024 8:26 AM DIRECT MARKETING COORDINATOR Inhaled Oxygen Concentration - - Weight 114.3 kg (252 lb) 02/02/2024 8:26 AM DIRECT MARKETING COORDINATOR Height 162.6 cm (5' 4 ) 02/02/2024 8:26 AM DIRECT MARKETING COORDINATOR Body Mass Index 43.26 02/02/2024 8:26 AM DIRECT MARKETING COORDINATOR documented in this encounter Progress Notes * Maico Martin MD - 02/02/2024 8:30 AM CST Images from the original note were not included. Patient ID: Monica Buckner is a 53 y.o. 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 This has been ongoing since December 2021. I initially saw her in October 2022, and at that time she stated that she had had multiple falls over the last year. She stated that when she leans her head backwards she feels like she was about to fall. However she denied any vertiginous symptoms are lightheadedness. She had previously completed an MRI of the brain with and without contrast which wasnormal. On examination I do not see any findings suggestive of cerebellar ataxia, parkinsonism, sensory neuropathy, or spinal cord pathology. I sent lab workup including B12, folate, CMP, CBC, thiamine, and thyroid function testing, but these labs were never obtained. I did order a CTA of the head and neck which did not show any significant stenosis of the extracranial carotid or vertebral arteries or if any of the intracranial arteries. Scan did show a 3 cm right parotid fat containing mass with areas of heterogeneous attenuation not substantially changed since November 2015 favored to represent a lipoma. She states that her balance problems have remained relatively stable. They certainly have not become worse. She does say that she worked with physical therapy and has learned techniques to help adapt. She was not had any falls in the last year as she has been more careful and has avoided situationswhere she would have falls. Review of Systems As above. All other systems were reviewed and found to be normal or non-contributory. Current Outpatient Medications Medication Sig Dispense Refill acetaminophen (TYLENOL) 325 mg tablet take 1 - 2 Tablet by oral route 3 times every day 0 0 celecoxib (CeleBREX) 200 mg capsule cloNIDine (CATAPRES) 0.2 mg tablet Take 1 tablet (0.2 mg total) by mouth hydroxychloroquine (PLAQUENIL) 200 mg tablet Take 1 tablet (200 mg total) by mouth 2 (two) times a day 180 tablet 1 ibuprofen 200 mg tab/cap Take 1 tablet by mouth leflunomide (ARAVA) 20 mg tablet Take 1 tablet (20 mg total) by mouth daily 90 tablet 1 levothyroxine (SYNTHROID, LEVOTHROID) 175 mcg tablet take 1 tablet by oral route every day 0 0 lifitegrast 5 % dropperette Administer into affected eye(s) loratadine (CLARITIN) 10 mg tablet take 1 tablet by oral route every day 0 0 montelukast (SINGULAIR) 10 mg tablet Take 1 tablet (10 mg total) by mouth nightly traZODone (DESYREL) 50 mg tablet Take 1 tablet (50 mg total) by mouth as needed triamcinolone (KENALOG) 0.1 % cream APPLY TOPICALLY TO THE AFFECTED AREA TWICE DAILY predniSONE (DELTASONE) 5 mg tablet Take 4 tablets by mouth daily x3 days, then 3 tabs daily x3 days, then 2 tabs daily x3 days, then 1 tab daily x3 days. (Patient not taking: Reported on 02/02/2024) 30 tablet 0 No current facility-administered medications for this visit. Physical Exam Vitals Ht 162.6 cm (5' 4 ) Wt 114.3 kg (252 lb) LMP (LMP Unknown) BMI 43.26 kg/m?? Neurological exam: Constitutional: Appears well and in no acute distress Mental Status: Alert and oriented times three, Speech is fluent. Normal comprehension. Cranial Nerves: pupils are equal, round, and reactive to light, Extraocular movements are intact, visual field full, face symmetric, facial sensation intact, palate rise symmetric, shoulder shrug appropriate in strength, tongue midline, no atrophy or fasciculations Motor: Normal bulk and tone noted. Strength: 5/5 throughout in both proximal and distal muscles Sensory: Intact to pinprick and vibration Reflexes: 2/4 throughout Gait: Intact with good heel, toe and tandem walking Coordination: Good FNF, No obvious invol mvmts Romberg's negative Assessments and Plan 1. Imbalance (Primary) - Thyroid Function Peñuelas; Future - Vitamin B12; Future - Folate; Future - Vitamin B1; Future - Thyroid Function Peñuelas - Vitamin B12 - Folate - Vitamin B1 I discussed that I do not note any evidence of a primary neurological disorder that is affecting her balance. Previously had a normal brain MRI, do not note any signs of parkinsonism on exam, there were no signs of spinal cord pathology, and no signs of peripheral neuropathy. Today I will plan on checking a thyroid function cascade, B12, folate, and thiamine level. I will reach out to her with the results and she can follow-up with me on an as-needed basis. My total encounter time on 02/02/2024 was 23 minutes which was spent in the activities documented in the note. This includes time spent prior to the visit and after the visit in direct care of the patient. This time does not include time spent in any separately reportable services. Maico Martin MD Neurology cc:Kevin Bowles MD CT MARKETING COORDINATOR documented in this encounter Plan of Treatment Not on file documented as of this encounter Procedures Procedure Name Priority Date/Time Associated Diagnosis Comments VITAMIN B1 PLASMA/SERUM Routine 02/04/2024 9:52 AM DIRECT MARKETING COORDINATOR THYROID FUNCTION CASCADE Routine 02/04/2024 9:52 AM DIRECT MARKETING COORDINATOR Imbalance VITAMIN B1 Routine 02/04/2024 9:52 AM DIRECT MARKETING COORDINATOR Imbalance FOLATE Routine 02/04/2024 9:52 AM DIRECT MARKETING COORDINATOR Imbalance VITAMIN B12 Routine 02/04/2024 9:52 AM DIRECT MARKETING COORDINATOR Imbalance documented in this encounter Results * Vitamin B1 (Thiamine), Plasma/Serum (02/04/2024 9:52 AM DIRECT MARKETING COORDINATOR) Pathologist [facility] Thiamine (Vit B1) 13 8 - 30 nmol/L [facility] Comment: (Note) Vitamin supplementation within 24 hours prior to blood draw may affect the accuracy of the results. This test was developed and its analytical performance characteristics have been determined by [employer]. It has not been cleared or approved by FDA. This assay has been validated pursuant to the CLIA regulations and is used for clinical purposes. [facility] [address] [address],[address] [place] [address] Caroline Gabriel MD, PhD 02/04/2024 9:52 AM DIRECT MARKETING COORDINATOR 02/04/2024 9:52 AM DIRECT MARKETING COORDINATOR Narrative [facility] - 02/08/2024 4:10 PM DIRECT MARKETING COORDINATOR FASTING:NO FASTING: NO Maico Martin MD LAB BLOOD ORDERABLES Final Res ult Performing Organization Address [facility] Co de Phone Number [facility] [address] [place] [address], [address] [address] * Vitamin B1 (02/04/2024 9:52 AM DIRECT MARKETING COORDINATOR) [facility] Thiamine (Vit B1) TNP nmol/L [facility] Comment: TEST NOT PERFORMED ?? Test cancelled for reorder purposes. Blood 02/04/2024 9:52 AM DIRECT MARKETING COORDINATOR 02/04/2024 9:52 AM DIRECT MARKETING COORDINATOR Narrative [facility] - 02/08/2024 4:10 PM DIRECT MARKETING COORDINATOR FASTING:NO FASTING: NO Maico Martin MD LAB BLOOD ORDERABLES Final Res ult Performing Organization Address [facility]/ZIP Co de Phone Number [facility] [employer] [address] [place] [address], [address] [place] [phone] * Folate (02/04/2024 9:52 AM DIRECT MARKETING COORDINATOR) Pathologist [facility] Folate, Serum 12.7 ng/mL [facility] Comment: ? Reference Range ? Low: ? <3.4 ? Borderline: ?3.4-5.4 ? Normal: ?>5.4 Blood 02/04/2024 9:52 AM DIRECT MARKETING COORDINATOR 02/04/2024 9:52 AM DIRECT MARKETING COORDINATOR Narrative [facility] - 02/08/2024 4:10 PM DIRECT MARKETING COORDINATOR FASTING:NO FASTING: NO Maico Martin MD LAB BLOOD ORDERABLES Final Res ult Performing Organization Address [facility] de Phone Number [facility] [address] [place] [address] * (ABNORMAL) Vitamin B12 (02/04/2024 9:52 AM DIRECT MARKETING COORDINATOR) Vitamin B12 1,181(H) 200 - 1,100 pg/mL [facility] Blood 02/04/2024 9:52 AM DIRECT MARKETING COORDINATOR 02/04/2024 9:52 AM DIRECT MARKETING COORDINATOR Narrative [facility] - 02/08/2024 4:10 PM DIRECT MARKETING COORDINATOR FASTING:NO FASTING: NO Maico Martin MD LAB BLOOD ORDERABLES Final Res ult Performing Organization Address [facility] de Phone Number [facility] [address] [facility] [address] * Thyroid Function Peñuelas (02/04/2024 9:52 AM DIRECT MARKETING COORDINATOR) TSH 0.87 mIU/L [facility] Comment: ?Reference Range ?> or = 20 Years ??0.40-4.50 ? Ranges ?First trimester ?0.26-2.66 ?Second trimester ?? 0.55-2.73 ?Third trimester ?0.43-2.91 Blood 02/04/2024 9:52 AM DIRECT MARKETING COORDINATOR 02/04/2024 9:52 AM DIRECT MARKETING COORDINATOR Narrative [facility] - 02/08/2024 4:10 PM DIRECT MARKETING COORDINATOR FASTING:NO FASTING: NO us Maico Martin MD LAB BLOOD ORDERABLES Final Res ult [facility] [address] [place] [address] documented in this encounter Visit Diagnoses Diagnosis Imbalance- Primary Abnormality of gait documented in this encounter Discontinued Medications Medication Sig Discontinue Reason Start Date End Da te folic acid (FOLVITE) 1 mg tablet Take 1 tablet (1 mg total) by mouth daily Therapy completed 05/31/2018 02/02/2024 ergocalciferol (VITAMIN D) 50,000 unit capsule Take 1 capsule (50,000 Units total) by mouth once a week Therapy completed 12/14/2016 02/02/2024 predniSONE (DELTASONE) 5 mg tablet Take 4 tablets by mouth daily x3 days, then 3 tabs daily x3 days, then 2 tabs daily x3 days, then 1 tab daily x3 days. Therapy completed 01/12/2024 02/02/2024 documented as of this encounter Historical Medications * This list may reflect changes made after this encounter. triamcinolone (KENALOG) 0.1 % cream APPLY TOPICALLY TO THE AFFECTED AREA TWICE DAILY 01/20/2024 celecoxib (CeleBREX) 200 mg capsule 01/08/2024 added in this encounter Care Teams Mid Level Business Analyst Relationship Specialty Start Date End Date Kevin Bowles MD [facility] [facility] [address] [place] [address] PCP - General Family Medicine 02/02/24 Eric Crowder MD [address] [facility] [address] [place] [address] Rheumatology 01/18/17 Maico Martin MD [address] [facility] [address] [place] [address] Consulting Physician Neurology 11/09/22 Herminia Kumar MD [address] [facility] [address] [place] [address] Consulting Physician General Surgery 01/17/24 Kevin Bowles MD [facility] [facility] [address] [place] [address] Referring Physician Family Medicine 01/17/24 documented as of this encounter
--- OUTSIDE RECORDS SUMMARY | 2024-04-01 11:17 | XMS_ITS | Encounter Summary ---
Author Organization [facility] Healthcare Address [address] [place] [address] Care Team Providers Care Miller Supervisor Name Role Phone Kevin Bowles MD Primary Care Provider [phone] Eric Crowder MD Unavailable [phone] Maico Martin MD Unavailable [phone] Reason for Referral * Diagnostic Imaging (Routine) - Pending Review Specialty Diagnoses / Procedures Referred By Contac t Referred To Contact Diagnoses Mass of right breast, unspecified quadrant Procedures US Breast Right Limited US Breast Right Complete Cynthia Carroll, LEAD FABRICATOR [address] [place] [address] Phone: tel: fax: [address] [address] Referral ID Status Reason Start Date Expiration Date V isits Requested Visits Authorized [id number] Pending Review 12/29/2023 01/27/2025 1 1 Reason for Visit * Diagnostic Imaging (Routine) - Pending Review Specialty Diagnoses / Procedures Referred By Contac t Referred To Contact Diagnoses Mass of right breast, unspecified quadrant Procedures US Breast Right Limited US Breast Right Complete Cynthia Carroll, LEAD FABRICATOR [address] [place] [address] Phone: tel: fax: [facility] [address] [place] [address] Referral ID Status Reason Start Date Expiration Date V isits Requested Visits Authorized [id number] Pending Review 12/29/2023 01/27/2025 1 1 Encounter Details Date Type Department Care Team (Latest Contact Info) Description 01/11/2024 7:51 AM CDT - 01/11/2024 11:59 PM CDT Hospital Encounter [facility] - Imaging [address] [facility] [address] [place] [address] Mass of right breast, unspecified [...] on file 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 Cynthia Carroll LEAD FABRICATOR IMG MAMMO PROCEDURES Joi l Result documented in this encounter Visit Diagnoses Diagnosis Mass of right breast, unspecified quadrant documented in this encounter Care Teams Miller Supervisor Relationship Specialty Start Date End Date Kevin Bowles MD [address] [facility] [address] [place] [address] PCP - General 06/19/16 01/16/24 Eric Crowder MD [address] [facility] [address] [place] [address] Rheumatology 01/18/17 Maico Martin MD [address] [facility] [address] [place] [address] Consulting Physician Neurology 11/09/22 documented as of this encounter
--- OUTSIDE RECORDS SUMMARY | 2024-04-01 11:17 | XMS_ITS | Encounter Summary ---
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); jail current use 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 Social History [...] on file 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 Gender Identity Not on file Sexual Orientation Not on file documented as of this encounter Last Filed Vital Signs Vital Sign Reading Time Taken Comments Blood Pressure 110/70 12/30/2023 9:43 AM CDT Pulse 76 12/30/2023 9:43 AM CDT Temperature - - Respiratory Rate - - Oxygen Saturation 97% 12/30/2023 9:43 AM CDT Inhaled Oxygen Concentration - - Weight 114.3 kg (252 lb) 12/30/2023 9:43 AM CDT Height 162.6 cm (5' 4 ) 12/30/2023 9:43 AM CDT Body Mass Index 43.26 12/30/2023 9:43 AM CDT documented in this encounter Ordered Prescriptions Prescription Sig Dispense Quantity Refills Last Filled Start Date End Date hydroxychloroquine (PLAQUENIL) 200 mg tabletIndications: Connective Tissue Disease,auto immune disease Take 1 tablet (200 mg total) by mouth 2 (two) times a day 180 tablet 1 12/30/2023 leflunomide (ARAVA) 20 mg tabletIndications: Rheumatoid Arthritis Take 1 tablet (20 mg total) by mouth daily 90 tablet 1 12/30/2023 06/27/2024 documented in this encounter Progress Notes * Christa Bueno PA - 12/30/2023 9:45 AM CDT Images from the original note were not included. Subjective/Objective Patient ID: Monica Buckner is a 53 y.o. female. Chief Complaint Joint pain HPI Returns for routine follow up. Noted significant flare last week. Had 2 vaccines (MMR and pneumonia) and then stressed. Had to limit activity for about 3 days and then this improved. Today, she is doing better. Just had trigger finger injection on the right hand (3rd/4th finger). Will be traveling to be with her daughter who is about to give . Will be helping take care of her grandchildren as well. This will be end of December/beginning of January. Denies fevers, infections, rashes, mouth sores, cough, dyspnea, n/v. Joint pain today is 10. AM stiffness = few minutes Review of Systems Constitutional: Positive for fatigue. Negative for chills and fever. HENT: Negative for congestion and mouth sores. Respiratory: Negative for cough and shortness of breath. Cardiovascular: Negative for chest pain. Gastrointestinal: Negative for abdominal pain, diarrhea, nausea and vomiting. Musculoskeletal: Positive for arthralgias. Negative for myalgias. Skin: Negative for rash. Vitals: Vitals BP 110/70 Pulse 76 Ht 162.6 cm (5' 4 ) Wt 114.3 kg (252 lb) LMP (LMP Unknown) SpO2 97% BMI 43.26 kg/m?? Body mass index is 43.26 kg/m??. Bold X is a current medication. [...] Cognition and memory are normal. Patient Global: 30 / 100 Provider Global: 30 / 100 CDAI: 15 In remission: 0-3 Low: 4-10 Moderate: 11-22 High: 23 or > Labs Lab Results Component Value Date WBC 4.4 12/17/2023 HGB 14.3 12/17/2023 HCT 44.2 12/17/2023 MCV 92.3 12/17/2023 Lab Results Component Value Date GLUCOSE 86 12/17/2023 CALCIUM 9.7 12/17/2023 SODIUM 140 12/17/2023 POTASSIUM 4.2 12/17/2023 CO2 29 12/17/2023 CHLORIDE 104 12/17/2023 BUNSER 13 12/17/2023 CREATININE 0.70 12/17/2023 Lab Results Component Value Date ALT 33 (H) 12/17/2023 AST 23 12/17/2023 ALKPHOS 68 12/17/2023 BILITOT 0.7 12/17/2023 Lab Results Component Value Date SEDRATE 9 12/17/2023 Lab Results Component Value Date CRP 5.3 12/17/2023 US right hand/wrist (06/02/17): Moderate synovitis with [...] arthritis (CMS/HCC) (HCC) (Primary) Assessment & Plan: Moderate cdai. Increased synovitis and tenderness noted on peripheral exam today and she notes recent flare following vaccination and overactivity/stress. Prior to this flare she was doing okay. Continuing to lose weight through diet/exercise and [...] rate; Standing - CRP (acute phase); Standing jail current use 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 Assessment & [...] PA-C Cosigned by Eric Crowder MD at 12/31/2023 8:22 AM CDT documented in this encounter Miscellaneous Notes * Assessment & Plan Note - Christa Bueno PA - 12/30/2023 11:28 AM CDTAssociated Problem(s): 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/HCC) (HCC) Moderate cdai. Increased synovitis and tenderness noted on peripheral exam today and she notes recent flare following vaccination and overactivity/stress. Prior to this flare she was doing okay. Continuing to lose weight through diet/exercise and [...] Plan Note - Christa Bueno PA - 12/30/2023 9:45 AM CDT Associated Problem(s): jail current use 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 Routine labs via standing order. documented in this encounter Plan of Treatment Scheduled Orders Name Type Priority Associated Diagnoses Orde r Schedule Comprehensive metabolic panel Lab Routine 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/HCC) (HCC) long term acute care registered nurse current use 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 [id number] for 4 Occurrences starting 12/30/2023 until 12/29/2024 CBC with auto differential Lab Routine 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 ([facility]/HCC) ([facility]) jail current use 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 [id number] for 4 Occurrences starting 12/30/2023 until 12/29/2024 Erythrocyte sedimentation rate Lab Routine 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 ([facility]/HCC) ([facility]) long term acute care registered nurse current use 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 [id number] for 4 Occurrences starting 12/30/2023 until 12/29/2024 CRP (acute phase) Lab Routine 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 ([facility]) ([facility]) long term acute care registered nurse current use 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 [id number] for 4 Occurrences starting 12/30/2023 until 12/29/2024 documented as of this encounter Visit Diagnoses Diagnosis 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 ([facility]) ([facility])- Primary Unspecified inflammatory polyarthropathy long term acute care registered nurse current use 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 documented in this encounter Discontinued Medications Medication Sig Discontinue Reason Start Date End Da te nortriptyline (Pamelor) 25 mg capsule Patient Reported 12/30/2023 mupirocin (BACTROBAN) 2 % ointment Patient Reported 11/10/2022 12/30/2023 predniSONE (DELTASONE) 10 mg tablet Take 2 tabs daily for 7 days then take 1 tab daily for 7 days then stop Therapy completed 04/29/2023 12/30/2023 PROAIR HFA 90 mcg/actuation inhaler Therapy completed 03/24/2017 12/30/19 diphenhydrAMINE 25 mg capsule Take by mouth Therapy completed 12/30/2023 leflunomide (ARAVA) 20 mg tabletIndications:Rheuma toid Arthritis Take 1 tablet (20 mg total) by mouth daily Reorder 06/14/2023 12/30/2023 hydroxychloroquine (PLAQUENIL) 200 mg tabletIndications:Connec tive Tissue Disease,auto immune disease Take 1 tablet (200 mg total) by mouth 2 (two) times a day Reorder 06/14/2023 12/30/2023 documented as of this encounter Care Teams Electrotyper Apprentice Relationship Specialty Start Date End Date Kevin Bowles MD [address] [place] [address] [place] [address] PCP - General 06/19/16 01/16/24 Eric Crowder MD [address] [facility] [address] [facility] [address] [place] [address] Rheumatology 01/18/17 Maico Martin MD [address] [facility] [address] [place] [address] Consulting Physician Neurology 11/09/22 documented as of this encounter
--- OUTSIDE RECORDS SUMMARY | 2024-04-01 11:17 | XMS_ITS | Encounter Summary ---
Author Organization [facility] Healthcare Address [address] [place] [address] Care Team Providers Care Treadle Cut Off Saw Operator Name Role Phone Kevin Bowles MD Primary Care Provider [phone] Eric Crowder MD Unavailable [phone] Maico Martin MD Unavailable [phone] Encounter Details Date Type Department Care Team (Latest Contact Info) Description 03/09/2023 9:37 AM CIVIL DIVISION COMMANDER DEPUTY SHERIFF - 03/09/2023 11:59 PM CIVIL DIVISION COMMANDER DEPUTY SHERIFF Hospital Encounter [facility] [address] [place] [address] Discharge Disposition: Discharge to home or self [...] on file Legal Sex Female 9:01 PM CIVIL DIVISION COMMANDER DEPUTY SHERIFF Gender Identity Not on file Sexual Orientation [...] (50 mg total) by mouth as needed diphenhydrAMINE 25 mg capsule Take by mouth [...] (two) times a day 180 tablet 1 12/14/2022 4 leflunomide (ARAVA) 20 mg tabletIndications :Rheumatoid Arthritis Take 1 tablet (20 mg total) by mouth daily 90 tablet 1 12/14/2022 4 mupirocin (BACTROBAN) 2 % ointment 11/10/2022 4 nortriptyline (Pamelor) 25 mg capsule 4 predniSONE (DELTASONE) 5 mg tablet Take 4 tablets by mouth daily x3 days, then 3 tabs daily x3 days, then 2 tabs daily x3 days, then 1 tab daily x3 days. 30 tablet 12/22/2022 4 PROAIR HFA 90 mcg/actuation inhaler 03/24/2017 4 documented as of this encounter Discharge Disposition Disposition Code Departure Means Destination Discharge to home or self care documented in this encounter Plan of Treatment Not on file documented as of this encounter Procedures Procedure Name Priority Date/Time Associated Diagnosis Comments XR WRIST RIGHT 3 OR MORE VIEWS Schedule Routine, Read Routine (OP Routine) 03/09/2023 9:47 AM CIVIL DIVISION COMMANDER DEPUTY SHERIFF Pain in both hands documented in this encounter Results * XR Wrist Right 3+ View (03/09/2023 9:47 AM CIVIL DIVISION COMMANDER DEPUTY SHERIFF) Anatomical Region Laterality Modality Upper Extremities, Wrist Right Compute d Radiography 03/09/2023 10:0 5 AM CIVIL DIVISION COMMANDER DEPUTY SHERIFF Impressions 03/09/2023 10:05 AM CIVIL DIVISION COMMANDER DEPUTY SHERIFF 1. ??Scattered bilateral wrist and metacarpal head erosions with normal wrist joint spaces. Electronically signed by: Venancio Mcdonald M.D. Narrative 03/09/2023 10:05 AM CIVIL DIVISION COMMANDER DEPUTY SHERIFF EXAMINATION: XR WRIST LEFT 3 OR MORE [...] JAY IMG XR PROCEDURES Final Re sult documented in this encounter Visit Diagnoses Not on filedocumented in this encounter Care Teams Treadle Cut Off Saw Operator Relationship Specialty Start Date End Date Kevin Bowles MD [address] [facility] [address] [place] [address] PCP - General 06/19/16 01/16/24 Eric Crowder MD [address] [facility] [address] [place] [address] Rheumatology 01/18/17 Maico Martin MD [address] [facility] [address] [place] [address] Consulting Physician Neurology 11/09/22 documented as of this encounter
--- OUTSIDE RECORDS SUMMARY | 2024-04-01 11:17 | XMS_ITS | Encounter Summary ---
Author Organization [facility] Address [address] [facility] [address] [place] [address] Care Team Providers Care Hand Lacer Name Role Phone Kevin Bowles MD Primary Care Provider [phone] Eric Crowder MD Unavailable [phone] Maico Martin MD Unavailable [phone] Reason for Visit * Reason Onset Date Comments CTA 11/13/2022 Location prefere nce Encounter Details Date Type Department Care Team (Late st Contact Info) Description 11/13/2022 Telephone [facility] Medical [facility] Neurology [address] [facility] [address] [place] [address] Maico Martin MD [address] [place] [address] CTA (Location preference) Social History Tobacco Use Types Packs/Day Years [...] on file 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 * Telephone Encounter - Annmarie Giraldo - 11/13/2022 1:16 PM CDT Pt stated wants to have CTA performed at [facility] in [place], [place] documented in this encounter Plan of Treatment Not on file documented as of this encounter Visit Diagnoses Not on filedocumented in this encounter Care Teams Hand Lacer Relationship Specialty Start Date End Date Kevin Bowles MD [address] [facility] [address] [place] [address] PCP - General 06/19/16 01/16/24 Eric Crowder MD [address] [facility] [address] [place] [address] Rheumatology 01/18/17 Maico Martin MD [address] [facility] [address] [place] [address] Consulting Physician Neurology 11/09/22 documented as of this encounter
--- OUTSIDE RECORDS SUMMARY | 2024-04-01 11:17 | XMS_ITS | Encounter Summary ---
Author Organization [facility] Healthcare Address [address] [place] [address] Care Team Providers Care Field Cane Scaler Name Role Phone Kevin Bowles MD Primary Care Provider [phone] Eric Crowder MD Unavailable [phone] Maico Martin MD Unavailable [phone] Reason for Referral * Diagnostic Imaging (Routine) - Closed Specialty Diagnoses / Procedures Referred By Contac t Referred To Contact Diagnoses Screening mammogram, encounter for Procedures Screening Mammogram Bilateral W Felipe Screening Mammogram, Self [facility] [address] [place] [address] Referral ID Status Reason Start Date Expiration Date Visits Re quested Visits Authorized [id number] Closed 11/04/2022 12/04/2023 1 1 * Diagnostic Imaging (Routine) - Closed Specialty Diagnoses / Procedures Referred By Contac t Referred To Contact Diagnoses Screening mammogram, encounter for Procedures Screening Mammogram Bilateral W Felipe Screening Mammogram, Self [facility] [address] [place] [address] Referral ID Status Reason Start Date Expiration Date Visits Re quested Visits Authorized [id number] Closed 11/04/2022 12/04/2023 1 1 Reason for Visit * Diagnostic Imaging (Routine) - Closed Specialty Diagnoses / Procedures Referred By Contac t Referred To Contact Diagnoses Screening mammogram, encounter for Procedures Screening Mammogram Bilateral W Felipe Screening Mammogram, Self [facility] [address] [place] [address] Referral ID Status Reason Start Date Expiration Date Visits Re quested Visits Authorized [id number] Closed 11/04/2022 12/04/2023 1 1 Encounter Details Date Type Department Care Team (Latest Contact Info) Description 11/30/2022 11:56 AM CDT - 11/30/2022 11:59 PM CDT Hospital Encounter [facility] - Imaging [address] [facility] [address] [place] [address] Screening mammogram, encounter for Discharge Disposition: Discharge to home or self [...] on file 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 Gender Identity Not on file Sexual Orientation [...] 1 tablet (500 mg total) by mouth 3 cloNIDine (CATAPRES-TTS) 0.2 mg/[address] 0.2 [...] Procedure Name Priority Date/Time Associated Diagnosis Comments SCREENING MAMMOGRAM BILATERAL W FELIPE Schedule Routine, Read Routine (OP Routine) 11/30/2022 12:34 PM CDT Screening mammogram, encounter for documented in this encounter Results * Screening Mammogram Bilateral W Felipe (11/30/2022 12:34 PM CDT) Anatomical Region Laterality Modality Breast Bilateral Mammography Narrative 11/30/2022 12:37 PM CDT Examination: Screening Mammogram Bilateral W Felipe: 11/30/22 Clinical: Screening mammogram, encounter for. Prior Study Comparisons: Comparison was made to the prior available relevant studies at the time of interpretation. Findings: Bilateral No significant masses, malignant type calcifications, skin thickening, nipple retraction, or significant lymphadenopathy is noted in either breast. ??The CAD review showed no significant findings. The breasts have scattered areas of fibroglandular density. The patient will be notified of results by letter. Impression: BI-RADS?? ATLAS category (overall): 2 - Benign ?? There is no mammographic evidence of malignancy. Routine Screening Mammogram in 1 Yr is recommended for bilateral Overall Assessment: 2 - Benign us Self Screening Mammogram IMG MAMMO PROCEDURES Fi nal Result documented in this encounter Visit Diagnoses Diagnosis Screening mammogram, encounter for documented in this encounter Care Teams Field Cane Scaler Relationship Specialty Start Date End Date Kevin Bowles MD [facility] [facility] [address] [place] [address] PCP - General 06/19/16 01/16/24 Eric Crowder MD [address] [facility] [address] [place] [address] Rheumatology 01/18/17 Maico Martin MD [address] [facility] [address] [place] [address] Consulting Physician Neurology 11/09/22 documented as of this encounter
--- OUTSIDE RECORDS SUMMARY | 2024-04-01 11:17 | XMS_ITS | Encounter Summary ---
Author Organization [facility] Healthcare Address [address] [place] [address] Care Team Providers Care Tanning Wheel Filler Name Role Phone Kevin Bowles MD Primary Care Provider [phone] Eric Crowder MD Unavailable [phone] Reason for Visit * MRI/CAT/PET Scan (Routine) - Pending Review Specialty Diagnoses / Procedures Referred By Marc kahn Referred To Contact Procedures MSK MR Outside Reference Transcribed Order, Provider Referral ID Status Reason Start Date Expiration Date V isits Requested Visits Authorized [id number] Pending Review 06/24/2023 07/23/2024 1 1 Encounter Details Date Type Department Care Team (Latest Contact Info) Description 10/23/2022 - 10/23/2022 11:59 PM CDT Hospital Encounter [facility] [employer] [address] [place] [address] Discharge Disposition: Discharge to home or self [...] on file 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 Gender Identity Not on file Sexual Orientation Not on file documented as of this encounter Medications at Time of Discharge acetaminophen (TYLENOL) 325 mg tablet take 1 - 2 Tablet by oral route 3 times every day 0 0 06/03/2015 cloNIDine (CATAPRES) 0.2 mg tablet Take 1 tablet (0.2 mg total) by mouth 04/08/2017 levothyroxine (SYNTHROID, LEVOTHROID) 175 mcg tablet take 1 tablet by oral route every day 0 0 06/03/2015 loratadine (CLARITIN) 10 mg tablet take 1 tablet by oral route every day 0 0 06/03/2015 montelukast (SINGULAIR) 10 mg tablet Take 1 tablet (10 mg total) by mouth nightly cloNIDine (CATAPRES-TTS) 0.2 mg/[address] 0.2 mg on the skin once a week. 12/14/2022 ergocalciferol (VITAMIN D) 50,000 unit capsule Take 1 capsule (50,000 Units total) by mouth once a week 12 capsule 1 10/04/2018 12/14/2022 ergocalciferol (VITAMIN D) 50,000 unit capsule Take 1 capsule (50,000 Units total) by mouth once a week 12/14/2016 02/02/2024 folic acid (FOLVITE) 1 mg tablet Take 1 tablet (1 mg total) by mouth daily 05/31/2018 02/02/2024 hydrOXYchloroQUIN E (PLAQUENIL) 200 mg tabletIndications :Connective Tissue Disease,auto immune disease Take 1 tablet (200 mg total) by mouth 2 (two) times a day 180 tablet 09/18/2022 12/14/2022 hydrOXYchloroQUIN E (PLAQUENIL) 200 mg tablet Take 1 tablet (200 mg total) by mouth 2 (two) times a day 11/12/2016 12/14/2022 ibuprofen (ADVIL,MOTRIN) 200 mg tablet take 1 tablet by oral route every 6 hours as needed with food 0 0 06/03/2015 12/14/2022 leflunomide (ARAVA) 20 mg tabletIndications :Rheumatoid Arthritis Take 1 tablet (20 mg total) by mouth daily 90 tablet 09/18/2022 12/14/2022 methotrexate 2.5 mg tablet TAKE 6 TABLETS BY MOUTH ONCE WEEKLY 04/25/2018 12/14/2022 predniSONE (DELTASONE) 20 mg tablet Take three tablets PO once daily x 3 days, 2 tablets daily x 3 days, one tablet daily x 2 days Reasons: RA flare 03/13/2021 12/14/2022 PROAIR HFA 90 mcg/actuation inhaler 03/24/2017 12/30/2023 traZODone (DESYREL) 50 mg tablet Take 50 mg by mouth nightly. 12/14/2022 documented as of this encounter Discharge Disposition Disposition Code Departure Means Destination Discharge to home or self care documented in this encounter Plan of Treatment Not on file documented as of this encounter Procedures Procedure Name Priority Date/Time Associated Diagnosis Comments MSK MR OUTSIDE REFERENCE Routine 10/23/2022 12:00 AM CDT documented in this encounter Results * MSK MR Outside Reference (10/23/2022 12:00 AM CDT) Narrative NISREEN_CAHI_[facility]_MHE - 06/24/2023 3:01 PM CDT This order has been auto-finalized and does not contain a result. us Provider Transcribed Order IMG MRI PROCEDURES Fi nal Result RAD_CLARIO_[facility]_MHE documented in this encounter Visit Diagnoses Not on filedocumented in this encounter Care Teams Tanning Wheel Filler Relationship Specialty Start Date End Date Kevin Bowles MD [facility] [address] [place] [address] PCP - General 06/19/16 01/16/24 Eric Crowder MD [address] [facility] [address] [place] [address] Rheumatology 01/18/17 documented as of this encounter
--- OUTSIDE RECORDS SUMMARY | 2024-04-01 11:17 | XMS_ITS | Encounter Summary ---
Author Organization [facility] Healthcare Address [address] [place] [address] Care Team Providers Care Warp Placer Name Role Phone Kevin Bowles MD Primary Care Provider [phone] Eric Crowder MD Unavailable [phone] Maico Martin MD Unavailable [phone] Encounter Details Date Type Department Care Team (Latest Contact Info) Description 03/09/2023 9:36 AM TITLE INSPECTOR - 03/09/2023 11:59 PM TITLE INSPECTOR Hospital Encounter [facility] [address] [place] [address] Discharge Disposition: Discharge to home or self [...] on file Legal Sex Female 9:01 PM TITLE INSPECTOR Gender Identity Not on file Sexual Orientation [...] Priority Date/Time Associated Diagnosis Comments XR WRIST LEFT 3 OR MORE VIEWS Schedule Routine, Read Routine (OP Routine) 03/09/2023 9:46 AM TITLE INSPECTOR Pain in both hands documented in this encounter Results * XR Wrist Left 3+ View (03/09/2023 9:46 AM TITLE INSPECTOR) Anatomical Region Laterality Modality Upper Extremities, Wrist Left Compute d Radiography 03/09/2023 10:0 5 AM TITLE INSPECTOR Impressions 03/09/2023 10:05 AM TITLE INSPECTOR 1. ??Scattered bilateral wrist and metacarpal head erosions with normal wrist joint spaces. Electronically signed by: Venancio Mcdonald M.D. Narrative 03/09/2023 10:05 AM TITLE INSPECTOR EXAMINATION: XR WRIST LEFT 3 OR MORE [...] Electronically signed by: Venancio Mcdonald M.D. Gemma Sneed PA IMG XR PROCEDURES Final Re sult documented in this encounter Visit Diagnoses Not on filedocumented in this encounter Care Teams Warp Placer Relationship Specialty Start Date End Date Kevin Bowles MD [address] [facility] [address] [place] [address] PCP - General 06/19/16 01/16/24 Eric Crowder MD [address] [facility] [address] [place] [address] Rheumatology 01/18/17 Maico Martin MD [address] [facility] [address] [place] [address] Consulting Physician Neurology 11/09/22 documented as of this encounter
--- OUTSIDE RECORDS SUMMARY | 2024-04-01 11:17 | XMS_ITS | Encounter Summary ---
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 30 tablet 12/22/2022 4 documented in this encounter Plan of Treatment Not on file documented as of this encounter Visit Diagnoses Not on filedocumented in this encounter Care Teams Cigarette Packer Relationship Specialty Start Date End Date Kevin Bowles MD [address] [facility] [address] [place] [address] PCP - General 06/19/16 01/16/24 Eric Crowder MD [address] [facility] [address] [place] [address] Rheumatology 01/18/17 Maico Martin MD [address] [facility] [address] [place] [address] Consulting Physician Neurology 11/09/22 documented as of this encounter
--- OUTSIDE RECORDS SUMMARY | 2024-04-01 11:17 | XMS_ITS | Encounter Summary ---
Author Organization [facility] Address [address] [place] [address] Phone Care Team Providers Care Home Health Travel Ot Name Role Phone Kevin Bowles MD Primary Care Provider [phone] Eric Crowder MD Unavailable [phone] Maico Martin MD Unavailable [phone] Reason for Visit * Reason Onset Date Comments Flare Getting Worse/Wants Steroids 12/22/2022 Encounter Details Date Type Department Care Team (Late st Contact Info) Description 12/22/2022 Telephone [facility] [address] [place] [address] Chantel Ziegler Flare Getting Worse/Wants Steroids Social History Tobacco Use Types Packs/Day Years [...] on file Legal Sex Female 9:01 PM 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 * Telephone Encounter - Christa Bueno PA - 12/22/2022 12:44 PM CDT Rx sent. * Telephone Encounter - Chantel Ziegler - 12/22/2022 12:26 PM CDT Pt reports she is flaring worse than when she was here last week. Wants to know if you will send a prednisone taper for her to the [facility] on [address] in [place]. documented in this encounter Plan of Treatment Not on file documented as of this encounter Visit Diagnoses Not on filedocumented in this encounter Care Teams Home Health Travel Ot Relationship Specialty Start Date End Date Kevin Bowles MD [address] [facility] [address] [place] [address] PCP - General 06/19/16 01/16/24 Eric Crowder MD [address] [facility] 110 [place] [address] Rheumatology 01/18/17 Maico Martin MD [address] [facility] [address] [place] [address] Consulting Physician Neurology 11/09/22 documented as of this encounter
--- OUTSIDE RECORDS SUMMARY | 2024-04-01 11:17 | XMS_ITS | Encounter Summary ---
Author Organization [facility] Address [address] [place] [address] Phone Care Team Providers Care Copy And Print Associate Name Role Phone Kevin Bowles MD Primary Care Provider [phone] Eric Crowder MD Unavailable [phone] Macio Martin MD Unavailable [phone] Encounter Details Date Type Department Care Team (Late st Contact Info) Description 05/29/2023 Orders Only [facility] [address] [place] [address] Christa Bueno PA [address] [place] [address] Social History Tobacco Use Types [...] on file Legal Sex Female 9:01 PM COOK BARBECUE Gender Identity Not on file Sexual Orientation Not on file documented as of this encounter Plan of Treatment Not on file documented as of this encounter Procedures Procedure Name Priority Date/Time Associated Diagnosis Comments CBC WITH AUTO DIFFERENTIAL Routine 05/29/2023 12:58 PM COOK BARBECUE ERYTHROCYTE SEDIMENTATION RATE Routine 05/29/2023 12:58 PM COOK BARBECUE CRP (ACUTE PHASE) Routine 05/29/2023 12: 58 PM COOK BARBECUE COMPREHENSIVE METABOLIC PANEL Routine 05/29/2023 12:58 PM COOK BARBECUE documented in this encounter Results * CRP (acute phase) (05/29/2023 12:58 PM COOK BARBECUE) Pathologist [facility] C-RP 7.9 <8.0 mg/L [facility] 05/29/2023 12:5 8 PM COOK BARBECUE 05/29/2023 12:59 PM COOK BARBECUE Narrative [facility] - 05/31/2023 10:14 AM CDT FASTING:NO FASTING: NO Christa JAY LAB BLOOD ORDERABLES Final Result [facility] [address] [place] [address] * CBC with auto differential (05/29/2023 12:58 PM COOK BARBECUE) [facility] WBC 4.9 3.8 - 10.8 Thousand/u L [facility] RBC, POC 4.86 3.80 - 5.10 Million/uL [facility] Hgb 14.6 11.7 - 15.5 g/dL [facility] Hct 43.0 35.0 - 45.0 % [facility] MCV 88.5 80.0 - 100.0 fL [facility] MCH 30.0 27.0 - 33.0 pg [facility] MCHC 34.0 32.0 - 36.0 g/dL [facility] Rdw 13.4 11.0 - 15.0 % [facility] Platelets 207 140 - 400 Thousand/u L [facility] MPV 10.0 7.5 - 12.5 fL [facility] Neutrophils, abs 2,651 1,500 - 7,800 cells/uL [facility] Lymphocytes, abs 1,558 850 - 3,900 cells/uL [facility] Monocyte abs 475 200 - 950 cells/uL [facility] Eosinophils, abs 186 15 - 500 cells/uL [facility] Basophils, abs 29 0 - 200 cells/uL [facility] Neutrophils 54.1 % [facility] Lymphocyte pct 31.8 % [facility] Monocytes 9.7 % [facility] Eosinophils 3.8 % [facility] Basophils 0.6 % [facility] 05/29/2023 12:5 8 PM COOK BARBECUE 05/29/2023 12:59 PM COOK BARBECUE Narrative [facility] - 05/31/2023 10:14 AM CDT FASTING:NO FASTING: NO Christa JAY LAB BLOOD ORDERABLES Final Result Performing Organization Address [facility] Co de Phone Number [facility] [address] [place] [address] * Erythrocyte sedimentation rate (05/29/2023 12:58 PM COOK BARBECUE) Pathologist [facility] Erythrocyte sedimentation rate 19 < OR = 30 mm/h [facility] 05/29/2023 12:5 8 PM COOK BARBECUE 05/29/2023 12:59 PM COOK BARBECUE Narrative [facility] - 05/31/2023 10:14 AM CDT FASTING:NO FASTING: NO Christa JAY LAB BLOOD ORDERABLES Final Result Performing Organization Address City/[facility] Co de Phone Number [facility] [address] [place] [address] * Comprehensive metabolic panel (05/29/2023 12:58 PM COOK BARBECUE) Pathologist [facility] Glucose 89 65 - 139 mg/dL [facility] Comment: ? Non-fasting reference interval BUN 16 7 - 25 mg/dL [facility] Creatinine 0.70 0.50 - 1.03 mg/dL [facility] eGFR 104 > OR = 60 mL/min/1.7 3m2 [facility] BUN/creat ratio SEE NOTE: 6 - 22 (calc) [facility] Comment: ?? Not Reported: BUN and Creatinine are within ?? reference range. ? Sodium 139 135 - 146 mmol/L [facility] Potassium, pl 4.1 3.5 - 5.3 mmol/L [facility] Chloride 103 98 - 110 mmol/L [facility] CO2 26 20 - 32 mmol/L [facility] Calcium 9.4 8.6 - 10.4 mg/dL [facility] Protein, sr 7.1 6.1 - 8.1 g/dL [facility] Albumin 4.6 3.6 - 5.1 g/dL [facility] GLOBULIN 2.5 1.9 - 3.7 g/dL (calc) [facility] Alb/glob ratio 1.8 1.0 - 2.5 (calc) [facility] Bilirubin, total 0.7 0.2 - 1.2 mg/dL [facility] Alk phos 73 37 - 153 U/L [facility] AST 20 10 - 35 U/L [facility] ALT (SGPT) 22 6 - 29 U/L [facility] 05/29/2023 12:5 8 PM COOK BARBECUE 05/29/2023 12:59 PM COOK BARBECUE Narrative [facility] - 05/31/2023 10:14 AM CDT FASTING:NO FASTING: NO Christa JAY LAB BLOOD ORDERABLES Final Result [facility] [address] [address] [address] documented in this encounter Visit Diagnoses Not on filedocumented in this encounter Care Teams Copy And Print Associate Relationship Specialty Start Date End Date Kevin Bowles MD [address] [facility] [address] [place] [address] PCP - General 06/19/16 01/16/24 Eric Crowder MD [address] [facility] [address] [place] [address] Rheumatology 01/18/17 Maico Martin MD [address] [facility] [address] [place] [address] Consulting Physician Neurology 11/09/22 documented as of this encounter
--- OUTSIDE RECORDS SUMMARY | 2024-04-01 11:17 | XMS_ITS | Encounter Summary ---
Author Organization [facility] Address [address] [place] [address] Care Team Providers Care Fabric Worker Foreman Name Role Phone Eric Crowder MD Unavailable [phone] Maico Martin MD Unavailable [phone] Herminia Kumar MD Unavailable [phone] Kevin Bowles MD Unavailable [phone] Kevin Bowles MD Primary Care Provider [phone] Reason for Visit * Reason Comments Breast Problem Encounter Details Date Type Department Care Team (Late st Contact Info) Description 02/07/2024 8:30 AM [facility] Office Visit [facility] [address] [address] Herminia Kumar MD [address] [place] [address] Breast lipoma (Primary Dx) Social History Tobacco Use Types [...] on file Legal Sex Female 9:01 PM 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 Gender Identity Not on file Sexual Orientation Not on file documented as of this encounter Last Filed Vital Signs Vital Sign Reading Time Taken Comments Blood Pressure - - Pulse - - Temperature 36.1 ??C (97 ??F) 02/07/2024 8:32 AM [facility] Respiratory Rate - - Oxygen Saturation - - Inhaled Oxygen Concentration - - Weight 114.3 kg (252 lb) 02/07/2024 8:32 AM [facility] Height 162.6 cm (5' 4 ) 02/07/2024 8:32 AM [facility] Body Mass Index 43.26 02/07/2024 8:32 AM [facility] documented in this encounter Progress Notes * Herminia Kumar MD - 02/07/2024 8:30 AM CST Images from the original note were not included. [facility] ~ [facility] Medical Group Dr. Dmitri Kumar MD, FACS ~ Laila Rodriguez [facility] PATIENT NAME: Monica Buckner : 1970 Patient Care Team: Keivn Bowles MD as PCP - General (Family Medicine) Eric Crowder MD (Rheumatology) Maico Martin MD as Consulting Physician (Neurology) Herminia Kumar MD as Consulting Physician (General Surgery) Kevin Bowles MD as Referring Physician (Family Medicine) REASON FOR VISIT Monica is 53 y.o. female presents for surgical consultation and evaluation of a new breast mass. Patient has an enlarging mass in the right breast 1 o'clock position 15 cm from the nipple. This is most consistent with a growing lipoma since December 09, 2014. Currently measures 5 cm in maximum dimension. Previously this measured 3.8 cm in maximum dimension Results for orders placed during the hospital encounter of 01/11/24 US Breast Right Limited Narrative EXAM: US BREAST RIGHT LIMITED, DIAGNOSTIC MAMMOGRAM BILATERAL W SAÚL CLINICAL HISTORY: Right breast lump that has grown in size. No other symptoms. TECHNIQUE: Bilateral full-field digital diagnostic mammography with computer aided detection. 3-D tomosynthesis imaging performed. COMPARISON: Multiple prior exams dating back to 11/21/2014 FINDINGS: The breasts are almost entirely fat. There are no suspicious calcifications, masses, or areas of architectural distortion in the left breast. In the right breast, the BB corresponds to a fat-containing mass with a thin capsule. Right breast ultrasound: Focused ultrasound was performed of the right breast in the upper inner quadrant. At approximately 1:00, 15 cm from the nipple is a smoothly marginated hyperechoic mass that measures 5 x 1.6 x 3.4cm. Previously, this measured 3.8 x 1.4 x 2.4 cm. This is most consistent with a growing lipoma since 11/21/2014. Impression 1. Mass most consistent with a giant [...] consult. OVERALL ASSESSMENT: BI-RADS CATEGORY 2: Benign RECOMMENDATION: Annual screening mammography in 1 year is recommended as well as clinical follow-up and surgical consult. Electronically signed by: Carmen Diallo M.D. Problem List Genitourinary and Reproductive Breast lipoma - Primary ROS POSITIVES FINDINGS: Growing mass right breast HISTORY Social History Tobacco Use Smoking status: Never Smokeless tobacco: None Substance and Sexual Activity Drug use: Never Sexual activity: None Alcohol Use: Not At Risk (10/08/2021) AUDIT-C Frequency of Alcohol Consumption: Never Average Number of Drinks: Not on file Frequency of Binge Drinking: Not on file Past Medical History: Diagnosis Date Joint pain Past Surgical History: Procedure Laterality Date CARPAL TUNNEL RELEASE Carpal tunnel release OTHER SURGICAL HISTORY tenosynovitis debridement Family History Problem Relation Age of Onset Heart attack Father Heart disease Maternal Grandfather Heart disease Paternal Grandfather No known family history of breast cancer. OBJECTIVE Allergies Allergen Reactions Wheat Edema Ketorolac Sumatriptan Current Outpatient Medications: acetaminophen (TYLENOL) 325 mg tablet celecoxib (CeleBREX) 200 mg capsule cloNIDine (CATAPRES) 0.2 mg tablet hydroxychloroquine (PLAQUENIL) 200 mg tablet ibuprofen 200 mg tab/cap leflunomide (ARAVA) 20 mg tablet levothyroxine (SYNTHROID, LEVOTHROID) 175 mcg tablet lifitegrast 5 % dropperette loratadine (CLARITIN) 10 mg tablet montelukast (SINGULAIR) 10 mg tablet traZODone (DESYREL) 50 mg tablet triamcinolone (KENALOG) 0.1 % cream No LMP recorded (lmp unknown). Patient is postmenopausal. Temp 36.1 ??C (97 ??F) Ht 162.6 cm (5' 4 ) Wt 114.3 kg (252 lb) LMP (LMP Unknown) Body mass index is 43.26 kg/m??. EXAM Breasts: Right breast 12 o'clock position smooth movable palpable mass measuring around 4 cm. This is consistent with a benign mass such as a lipoma no other masses lesions skin changes to her breasts. On the opposite left breast she has a small infected carbuncle ASSESSMENT/PLAN ICD-10-CM 1. Breast lipoma D17.1 No orders of the defined types were placed in this encounter. I have personally examined and interpreted all the pertinent radiologic imaging myself as well as reviewed relevant pathology and past notes in [facility] and Care Everywhere. I believe this represents and recommend right breast 1 o'clock position 15 cm from the nipple smooth mass most consistent with a lipoma. It has been enlarging since 2015. Currently measures 5 cm in maximum dimension. The nature of lipomas was discussed with the patient. One of the indications to remove the lipoma is growth. Surgical excisional biopsy was discussed. The expected pre and postoperative course and major risks and benefits were discussed.Risks of surgery were discussed in detail to include but are not limited to bleeding, infection, numbness, seroma formation, chronic pain, a poorcosmetic outcome, as well as the possibility of needing to do further surgery dependent upon final p athology. Breast surgical folder provided and reviewed with patient. Patient wishes to observe the area. It is really asymptomatic at this time. She will let us know if she wants to have it removed or if it continues to grow. Otherwise she should get routine screening. I did tell her that if she decides to remove it in the next 3 months we probably would not do another office visit. If it is longer than that we may want to repeat an ultrasound and a pre surgical office visit Breast self awareness encouraged. Call the office with breast changes or concerns. My total encounter time on 02/07/2024 was 36 minutes which was spent in the activities documented in the note. This includes time spent prior to the visit and after the visit in direct care of the patient. Thistime does not include time spent in any separately reportable services. Herminia Kumar MD [facility] documented in this encounter Plan of Treatment Not on file documented as of this encounter Visit Diagnoses Diagnosis Breast lipoma- Primary Lipoma of other specified sites documented in this encounter Care Teams Fabric Worker Foreman Relationship Specialty Start Date End Date Kevin Bowles MD [address] [place] [address] [address] [place] [address] PCP - General Family Medicine 02/02/24 Eric Crowder MD [address] [facility] [address] [place] [address] Rheumatology 01/18/17 Maico Martin MD [address] [facility] [address] [place] [address] Consulting Physician Neurology 11/09/22 Herminia Kumar MD [address] [facility] [address] [place] [address] Consulting Physician General Surgery 01/17/24 Kevin Bowles MD [address] [place] [address] [address] [place] [address] Referring Physician Family Medicine 01/17/24 documented as of this encounter
--- OUTSIDE RECORDS SUMMARY | 2024-04-01 11:17 | XMS_ITS | Encounter Summary ---
Author Organization [facility] Address [address] [place] [address] Phone Care Team Providers Care Material Expediter Name Role Phone Kevin Bowles MD Primary Care Provider [phone] Eric Crowder MD Unavailable [phone] Maico Martin MD Unavailable [phone] Encounter Details Date Type Department Care Team (Late st Contact Info) Description 11/27/2022 Orders Only [facility] [address] [place] [address] Eric Crowder MD [address] [facility] [address] [place] [address] Abdominal bloating with cramps (Primary Dx) Social History Tobacco Use Types [...] on file 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 Gender Identity Not on file Sexual Orientation Not on file documented as of this encounter Plan of Treatment Scheduled Orders Name Type Priority Associated Diagnoses Orde r Schedule Celiac reflex panel Lab Routine Abdominal bloating with cramps Expected: 11/27/2022, Expires: 11/28/2023 documented as of this encounter Visit Diagnoses Diagnosis Abdominal bloating with cramps- Primary documented in this encounter Care Teams Material Expediter Relationship Specialty Start Date End Date Kevin Bowles MD [address] [facility] [address] [place] [address] PCP - General 06/19/16 01/16/24 Eric Crowder MD [address] [facility] [address] [place] [address] Rheumatology 01/18/17 Maico Martin MD [address] [facility] [address] [place] [address] Consulting Physician Neurology 11/09/22 documented as of this encounter
--- OUTSIDE RECORDS SUMMARY | 2024-04-01 11:17 | XMS_ITS | Encounter Summary ---
Author Organization [facility] Address [address] [place] [address] Phone Care Team Providers Care Inhalation Therapy Aide Name Role Phone Kevin Bowles MD Primary Care Provider [phone] Eric Crowder MD Unavailable [phone] Maico Martin MD Unavailable [phone] Reason for Referral * Procedure (Routine) - Pending Review Specialty Diagnoses / Procedures Referred By Contac t Referred To Contact Diagnoses Trigger finger, right middle finger Trigger finger, right ring finger Procedures Hand / Upper Extremity Arthrocentesis: R ring A1 Gemma Sneed PA Phone: tel: fax: [facility] (All Locations) Referral ID Status Reason Start Date Expiration Date V isits Requested Visits Authorized [id number] Pending Review 01/03/2024 02/01/2025 1 1 * Procedure (Routine) - Pending Review Specialty Diagnoses / Procedures Referred By Contac t Referred To Contact Diagnoses Trigger finger, right middle finger Trigger finger, right ring finger Procedures Hand / Upper Extremity Arthrocentesis: R long A1 Gemma Sneed PA Phone: tel: fax: [facility] (All Locations) Referral ID Status Reason Start Date Expiration Date V isits Requested Visits Authorized [id number] Pending Review 01/03/2024 02/01/2025 1 1 Reason for Visit * Reason Comments Pain Right middle and rin g finger locking * Consultation (Routine) - Authorized Specialty Diagnoses / Procedures Referred By Contac t Referred To Contact Orthopedic Surgery Diagnoses Trigger finger, right middle finger Trigger finger, right ring finger Cynthia Carroll, JONNY Phone: tel: fax: [facility] (All Locations) Referral ID Status Reason Start Date Expiration Date Visits Requested Visits Authorized [id number] Authorized Specialty Services Required 01/22/2023 03/21/2025 24 24 Encounter Details Date Type Department Care Team (Late st Contact Info) Description 12/28/2023 9:30 AM CDT Office Visit 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 female who presents to clinic today [...] manual reduction on the right only. Her buggy operator recommended she seek evaluation by Orthopedics. Time, we injected in February of 2023. She had good response with resolution mechanical complaints.However, symptoms returned about 1 month ago. Complains to both the middle and ring fingers on the right hand only. Meds: Current Outpatient Medications: acetaminophen (TYLENOL) 325 mg tablet, take 1 - 2 Tablet by oral route 3 times every day, Disp: 0, Rfl: 0 cloNIDine (CATAPRES) 0.2 mg tablet, Take 1 tablet (0.2 mg total) by mouth, Disp: , Rfl: ergocalciferol (VITAMIN D) 50,000 unit capsule, Take 1 capsule (50,000 Units total) by mouth once aweek, Disp: , Rfl: folic acid (FOLVITE) 1 mg tablet, Take 1 tablet (1 mg total) by mouth daily, Disp: , Rfl: hydroxychloroquine (PLAQUENIL) 200 mg tablet, Take 1 tablet [...] lifitegrast 5 % dropperette, Administer into affected eye(s), Disp: , Rfl: loratadine (CLARITIN) 10 mg tablet, take 1 tablet by oral route every day, Disp: 0, Rfl: 0 montelukast (SINGULAIR) 10 mg tablet, Take 1 tablet (10 mg total) by mouth nightly, Disp: , Rfl: traZODone (DESYREL) 50 mg tablet, Take 1 tablet (50 mg total) by mouth as needed, Disp: , Rfl: Allergies: Allergies Allergen Reactions Wheat Edema Ketorolac Sumatriptan Past Medical History (PMH): Past [...] none on the left. Neurovascularly intact. Xrays/Imaging: None today 03/09/23 For views of the bilateral hand and wrist were obtained the office today reviewed myself. 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 Assessment and Plan: No diagnosis found. Patient's clinical history exam findings x-ray findings and treatment options were discussed with the patient the office today. We discussed some of her hand tightness and discomfort, likely secondary to her known inflammatory arthritis. However, she does have apparent locking to the 3rd and 4th digit on the right good response to 1st injections 10 months ago. Recommend trial of steroid injections on the right, 3rd and 4th. Risks and benefits reviewed she would like to proceed. Hand / Upper Extremity Arthrocentesis: R long A1 Performed by: Gemma Sneed PA Authorized by: Gemma Sneed PA Verbal consent obtained?: No Indications: Pain Condition: trigger finger Location: Long finger Site: R long A1 Needle Size: 27 G Medications Right Long Injection: 1 mL lidocaine 10 mg/mL (1 %); 40 mg methylPREDNISolone acetate 40 mg/mL Patient tolerance: Patient tolerated the procedure well with no immediate complications Hand / Upper Extremity Arthrocentesis: R ring A1 Performed by: Gemma Sneed PA Authorized by: Gemma Sneed PA Indications: Pain Condition: trigger finger Location: Ring finger Site: R ring A1 Needle Size: 25 G Medications Right Ring Injection: 1 mL lidocaine 10 mg/mL (1 %); 40 mg methylPREDNISolone acetate 40 mg/mL Patient tolerance: Patient tolerated the procedure well with no immediate complications Post-injection care was reviewed all questions answered. Gemma Sneed PA-C [facility] Department of Orthopedics Working in collaboration with Dr. Kailash Adkins. Dictation completed using [employer] Speaking. Variances may occur. documented in this encounter Plan of Treatment Not on file documented as of this encounter Procedures Procedure Name Priority Date/Time Associated Diagnosis Comments MD INJECTION 1 TENDON SHEATH/LIGAMENT APONEUROSIS Routine 12/28/2023 9:30 AM CDT Trigger finger, right middle finger Trigger finger, right ring finger MD INJECTION 1 TENDON SHEATH/LIGAMENT APONEUROSIS Routine 12/28/2023 9:30 AM CDT Trigger finger, right middle finger Trigger finger, right ring finger documented in this encounter Results * MD INJECTION 1 TENDON SHEATH/LIGAMENT APONEUROSIS (12/28/2023 9:30 AM CDT) Narrative Gemma Sneed PA - 12/28/2023 9:30 AM CDT Gemma Sneed PA ? 01/03/2024 10:54 AM Hand / Upper Extremity Arthrocentesis: R ring A1 Performed by: Gemma Sneed PA Authorized by: Gemma Sneed PA ?? Indications: ??Pain Condition: trigger finger ?? Location: ??Ring finger Site: ??R ring A1 Needle Size: ??25 G Medications Right Ring Injection: ??1 mL lidocaine 10 mg/mL (1 %); 40 mg methylPREDNISolone acetate 40 mg/mL Patient tolerance: ??Patient tolerated the procedure well with no immediate complications Gemma JAY IN CLINIC/BEDSIDE ORDERABL ES Final Result * MD INJECTION 1 TENDON SHEATH/LIGAMENT APONEUROSIS (12/28/2023 9:30 AM CDT) Narrative Gemma Sneed PA - 12/28/2023 9:30 AM CDT Gemma Sneed PA ? 01/03/2024 10:54 AM Hand / Upper Extremity Arthrocentesis: R long A1 Performed by: Gemma Sneed PA Authorized by: Gemma Sneed PA ?? Verbal consent obtained?: No ?? Indications: ??Pain Condition: trigger finger ?? Location: ??Long finger Site: ??R long A1 Needle Size: ??27 G Medications Right Long Injection: ??1 mL lidocaine 10 mg/mL (1 %); 40 mg methylPREDNISolone acetate 40 mg/mL Patient tolerance: ??Patient tolerated the procedure well with no immediate complications Gemma JAY IN CLINIC/BEDSIDE ORDERABL ES Final Result documented in this encounter Visit Diagnoses Diagnosis Trigger finger, right middle finger- Primary Trigger finger, right ring finger documented in this encounter Administered Medications Inactive Administered Medications - up to 3 most recent administrations Medication Order MAR Action Action Date Dose Rate Site lidocaine (XYLOCAINE) 10 mg/mL (1 %) injection 1 mL 1 mL, One-Time Injection, Starting on Wed12/28/23 at 0930, For 1 dose, Indications: Administration of Local AnesthesiaIndications:Admin istration of Local Anesthesia Given 12/28/2023 9:30 AM CDT 1 mL Right Middle Finger lidocaine (XYLOCAINE) 10 mg/mL (1 %) injection 1 mL 1 mL, One-Time Injection, Starting on Wed12/28/23 at 0930, For 1 dose, Indications: Administration of Local AnesthesiaIndications:Admin istration of Local Anesthesia Given 12/28/2023 9:30 AM CDT 1 mL Right Ring Finger methylPREDNISolone acetate (DEPO-medrol) injection 40 mg 40 mg, intra-articular, One-Time Injection, Starting on Wed12/28/23 at 0930, For 1 doseIndications:Trigger finger, right middle finger,Trigger finger, right ring finger Given 12/28/2023 9:30 AM CDT 40 mg Right Ring Finger methylPREDNISolone acetate (DEPO-medrol) injection 40 mg 40 mg, intra-articular, One-Time Injection, Starting on Wed12/28/23 at 0930, For 1 doseIndications:Trigger finger, right middle finger,Trigger finger, right ring finger Given 12/28/2023 9:30 AM CDT 40 mg Right Middle Finger documented in this encounter Care Teams Inhalation Therapy Aide Relationship Specialty Start Date End Date Kevin Bowles MD [address] [facility] [address] [place] [address] PCP - General 06/19/16 01/16/24 Eric Crowder MD [address] [facility] [address] [place] [address] Rheumatology 01/18/17 Maico Martin MD [address] [facility] [address] [place] [address] Consulting Physician Neurology 11/09/22 documented as of this encounter
--- OUTSIDE RECORDS SUMMARY | 2024-04-01 11:17 | XMS_ITS | Encounter Summary ---
Author Organization [facility] Address [address] [address] Care Team Providers Care Porter Head Name Role Phone Kevin Bowles MD Primary Care Provider [phone] Eric Crowder MD Unavailable [phone] Maico Martin MD Unavailable Reason for Referral * MRI/CAT/PET Scan (Routine) - Closed Specialty Diagnoses / Procedures Referred By Marc kahn Referred To Contact Radiology Diagnoses Imbalance Procedures CTA Head Neck W WO Contrast Maico Martin MD [address] [place] [address] [address] [place] [address] Phone: tel: fax: [address] [address] Referral ID Status Reason Start Date Expiration Date Visits Re quested Visits Authorized [id number] Closed 11/13/2022 12/13/2023 1 1 Reason for Visit * Reason Comments New Patient Fall Gait Problem * Consultation (Routine) - Closed Specialty Diagnoses / Procedures Referred By Marc kahn Referred To Contact Neurology Diagnoses Ataxia Kevin Bowles MD [address] [place] [address] [address] [place] [address] Phone: tel: fax: [facility] Neurology [address] [place] [address] [address] [place] [address] Phone: tel: fax: Referral ID Status Reason Start Date Expiration Date V isits Requested Visits Authorized [id number] Closed Specialty Services Required 10/28/2022 12/28/2022 1 1 Encounter Details Date Type Department Care Team (Late st Contact Info) Description 11/13/2022 8:30 AM CDT Office Visit [facility] Neurology [address] [facility] [address] [place] [address] Maico Martin MD [address] [facility] [address] [place] [address] Imbalance (Primary Dx) Social History Tobacco Use Types Packs/Day Years Used Date Smoking Tobacco: Never Tobacco Cessation:Counseling Given: Not Answered Alcohol Use Standard Drinks/Week Comments Yes 0 [...] on file 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 Patient ID: Monica Buckner is a 52 y.o. 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 She tells me this has been ongoing since December of 2021. She tells me thatwhen she leans her head backwards she feels like she is about to fall. She also says that she also feels like she is leaning to the right. In the last year she estimates that she has had approximately 5-10 falls due to this. She denies any vertiginous symptoms or lightheadedness associated with this and also denies any nausea, diaphoresis, or any other prodromal symptoms. She does say that these symptoms can be worse in the evening or if she received poor sleep. She does say that she began using a cane in her left hand 2 months ago and that this has resulted in some improvement in her balance. She denies any new weakness, numbness, tingling, vision loss, headaches, dysarthria, dysphagia, orissues with her bowel and bladder. She does endorse intermittent binocular double vision involving the left eye. She clearly tells me that the diplopia is still present when she closes her right eye.She denies any hearing loss or tinnitus. I reviewed her MRI of the brain with and without contrast from October 26 and this was normal. Review of Systems As above. All other systems were reviewed and found to be normal or non-contributory. Past Medical History: Diagnosis Date Joint pain Past Surgical History: Procedure Laterality Date CARPAL TUNNEL RELEASE Carpal tunnel release OTHER SURGICAL HISTORY tenosynovitis debridement No family history on file. Social History Tobacco Use Smoking status: Never Smokeless tobacco: Not on file Substance and Sexual Activity Drug use: Never Sexual activity: Not on file Alcohol Use: Not At Risk (10/08/2021) AUDIT-C Frequency of Alcohol Consumption: Never Average Number of Drinks: Not on file Frequency of Binge Drinking: Not on file Allergies Allergen Reactions Ketorolac Sumatriptan Current Outpatient Medications Medication Sig Dispense Refill acetaminophen (TYLENOL) 325 mg tablet take 1 - 2 Tablet by oral route 3 times every day 0 0 cloNIDine (CATAPRES) 0.2 mg tablet Take 1 tablet (0.2 mg total) by mouth ergocalciferol (VITAMIN D) 50,000 unit capsule Take 1 capsule (50,000 Units total) by mouth once a week folic acid (FOLVITE) 1 mg tablet Take 1 tablet (1 mg total) by mouth daily hydrOXYchloroQUINE (PLAQUENIL) 200 mg tablet Take 1 tablet (200 mg total) by mouth 2 (two) times a day ibuprofen 200 mg tab/cap Take 1 tablet by mouth leflunomide (ARAVA) 20 mg tablet Take 1 tablet (20 mg total) by mouth daily 90 tablet 0 levothyroxine (SYNTHROID, LEVOTHROID) 175 mcg tablet take 1 tablet by oral route every day 0 0 montelukast (SINGULAIR) 10 mg tablet Take 1 tablet (10 mg total) by mouth nightly traZODone (DESYREL) 50 mg tablet Take 1 tablet (50 mg total) by mouth as needed acetaminophen (TYLENOL) 500 mg tablet Take 1 tablet (500 mg total) by mouth (Patient not taking: Reported on 11/13/2022) cloNIDine (CATAPRES-TTS) 0.2 mg/[address] 0.2 mg on the skin once a week. (Patient not taking: Reported on 11/13/2022) diphenhydrAMINE 25 mg capsule Take by mouth (Patient not taking: Reported on 11/13/2022) ergocalciferol (VITAMIN D) 50,000 unit capsule Take 1 capsule (50,000 Units total) by mouth once a week (Patient not taking: Reported on 11/13/2022) 12 capsule 1 hydrOXYchloroQUINE (PLAQUENIL) 200 mg tablet Take 1 tablet (200 mg total) by mouth 2 (two) times a day (Patient not taking: Reported on 11/13/2022) 180 tablet 0 ibuprofen (ADVIL,MOTRIN) 200 mg tablet take 1 tablet by oral route every 6 hours as needed with food (Patient not taking: Reported on 11/13/2022) 0 0 levothyroxine (Synthroid) 175 mcg tablet (Patient not taking: Reported on 11/13/2022) lifitegrast 5 % dropperette Administer into affected eye(s) (Patient not taking: Reported on 11/13/2022) loratadine (CLARITIN) 10 mg tablet take 1 tablet by oral route every day (Patient not taking: Reported on 11/13/2022) 0 0 methotrexate 2.5 mg tablet TAKE 6 TABLETS BY MOUTH ONCE WEEKLY (Patient not taking: Reported on 11/13/2022) mupirocin (BACTROBAN) 2 % ointment (Patient not taking: Reported on 11/13/2022) nortriptyline (Pamelor) 25 mg capsule (Patient not taking: Reported on 11/13/2022) predniSONE (DELTASONE) 20 mg tablet Take three tablets PO once daily x 3 days, 2 tablets daily x 3 days, one tablet daily x 2 days Reasons: RA flare (Patient not taking: Reported on 11/13/2022) PROAIR HFA 90 mcg/actuation inhaler (Patient not taking: Reported on 11/13/2022) traZODone (DESYREL) 50 mg tablet Take 50 mg by mouth nightly. (Patient not taking: Reported on 11/13/2022) No current facility-administered medications for this visit. Physical Exam Vitals LMP (LMP Unknown) Neurological exam: Constitutional: Appears well and in [...] fasciculations Motor: Normal bulk and tone noted. No bradykinesia with finger taps, no rest tremor noted Strength: 5/5 throughout in both proximal and distal muscles Sensory: Intact to pinprick, vibration and prop bilat Reflexes: 2/4 throughout, Babinski and Lashaun reflex are negative Gait: Cautious gait, briefly able to walk on toes and heels but she is off balance, difficulty with tandem gait Coordination: Good FNF, No obvious invol mvmts Leans to the right on Romberg testing Assessments and Plan 1. Imbalance - Ambulatory referral to Neurology - Ambulatory referral order to Physical Therapy -; Future - Vitamin B12; Future - Folate; Future - Comprehensive metabolic panel; Future - CBC with auto differential; Future - Vitamin B1; Future - CTA Head Neck W WO Contrast; Future - TSH reflex to free T4; Future This is a 52-year-old female with history of Sjogren's syndrome as well as unspecified inflammatoryarthritis who presents for evaluation of gait imbalance that has been ongoing since December of 2021. She describes a sense of imbalance when tilting her head backwards and says that she feels like she is going to fall backwards or to the right. This sensation of imbalance associated with head movements might be suggestive of BPPV, she but she does not have any evidence of nystagmus on exam, and does not have vertiginous symptoms. She also does not have any findings that would be suggestive of cerebellar ataxia, parkinsonism, sensory neuropathy, or spinal cord pathology. I will send additionallab workup including B12, folate, CMP, CBC, thiamine and thyroid function testing. I will also senda CTA of the head and neck to rule out any significant stenosis of the posterior circulation. I have provided her with a referral to physical therapy as she would likely benefit from balance training. I will plan on seeing her again in 3 months to assess her progress with physical therapy. My total encounter time on 11/13/2022 was 40 minutes which was spent in the activities documented inthe note. This includes time spent prior to the visit and after the visit in direct care of the patient. This time does not include time spent in any separately reportable services. Maico Martin MD Neurology Cc: Kevin Bowles MD documented in this encounter Plan of Treatment Not on file documented as of this encounter Results * CTA Head Neck [...] ?? No other significant abnormality. INTRACRANIAL VESSELS [place]: ?? The anterior, middle, posterior [...] 9:01 AM - Electronically signed by ??Len GARCIA D: ??12/01/2022 9:01 AM T: Report ID: [id number] Reading Location: ??[id number] Procedure Note Len Mina MD - 12/01/2022 EXAM DESCRIPTION: CTA HEAD NECK W WO CONTRAST REASON FOR STUDY: Vertigo, central Patient complains of feeling a off balance that began in December 2021 worsening over the last 2 months. Patient also feels a lump under rightear area marked with CT marker been there for 3 years History: Kathy, zahra's, TECHNIQUE: Axial images were first obtained [...] OTHER: No other significant abnormality. IN[employer]ANIAL V[place]SELS [place]: The anterior, middle, posterior cerebral [...] Len Mina M.D. MZ T: Report ID: [id number] Reading Location: [place] [address] Maico Martin MD IMG CT PROCEDURES Final Result documented in this encounter Visit Diagnoses Diagnosis Imbalance- Primary Abnormality of gait Imbalance Abnormality of gait documented in this encounter Historical Medications * This list may reflect changes made after this encounter. traZODone (DESYREL) 50 mg tablet Take 1 tablet (50 mg total) by mouth as needed ibuprofen 200 mg tab/cap Take 1 tablet by mouth lifitegrast 5 % dropperette Administer into affected eye(s) cloNIDine (CATAPRES) 0.2 mg tablet Take 1 tablet (0.2 mg total) by mouth 04/08/2017 levothyroxine (Synthroid) 175 mcg tablet 3 hydrOXYchloroQUIN E (PLAQUENIL) 200 mg tablet Take 1 tablet (200 mg total) by mouth 2 (two) times a day 11/12/2016 3 ergocalciferol (VITAMIN D) 50,000 unit capsule Take 1 capsule (50,000 Units total) by mouth once a week 12/14/2016 4 acetaminophen (TYLENOL) 500 mg tablet Take 1 tablet (500 mg total) by mouth 3 predniSONE (DELTASONE) 20 mg tablet Take three tablets PO once daily x 3 days, 2 tablets daily x 3 days, one tablet daily x 2 days Reasons: RA flare 03/13/2021 3 nortriptyline (Pamelor) 25 mg capsule 4 mupirocin (BACTROBAN) 2 % ointment 11/10/2022 4 methotrexate 2.5 mg tablet TAKE 6 TABLETS BY MOUTH ONCE WEEKLY 04/25/2018 3 folic acid (FOLVITE) 1 mg tablet Take 1 tablet (1 mg total) by mouth daily 05/31/2018 4 diphenhydrAMINE 25 mg capsule Take by mouth 12/30/19 2 4 added in this encounter Orders Outpatient Referral Count Last Ordered Date Fir st Ordered Date AMB REFERRAL TO NEUROLOGY 1 11/13/2022 documented in this encounter Care Teams Porter Head Relationship Specialty Start Date End Date Kevin Bowles MD [address] [facility] [address] [place] [address] PCP - General 06/19/16 01/16/24 Eric Crowder MD [address] [facility] [address] [place] [address] Rheumatology 01/18/17 Maioc Martin MD [address] [facility] [address] [place] [address] Consulting Physician Neurology 11/09/22 documented as of this encounter
--- OUTSIDE RECORDS SUMMARY | 2024-04-01 11:17 | XMS_ITS | Encounter Summary ---
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 Order e-mailed to her. * Telephone Encounter - Chantel Ziegler - 11/27/2022 1:44 PM CDT Pt reports she is having stomach cramping & other intestinal issues every time she has gluten. Wants to know if you will order celiac testing she can do next week when she does her standing lab orders. She has appt to see Christa on 12/14/22. documented in this encounter Plan of Treatment Not on file documented as of this encounter Visit Diagnoses Not on filedocumented in this encounter Care Teams Gas Turbine Assembler Relationship Specialty Start Date End Date Kevin Bowles MD [address] [facility] [address] [place] [address] PCP - General 06/19/16 01/16/24 Eric Crowder MD [address] [facility] [address] [place] [address] Rheumatology 01/18/17 Maico Martin MD [address] [facility] [address] [place] [address] Consulting Physician Neurology 11/09/22 documented as of this encounter
--- OUTSIDE RECORDS SUMMARY | 2024-04-01 11:17 | XMS_ITS | Encounter Summary ---
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); shelter current use 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; Acute pain of right shoulder Social History Tobacco Use Types Packs/Day Years [...] on file 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 Gender Identity Not on file Sexual Orientation Not on file documented as of this encounter Last Filed Vital Signs Vital Sign Reading Time Taken Comments Blood Pressure 116/82 12/14/2022 9:28 AM CDT Pulse 75 12/14/2022 9:28 AM CDT Temperature - - Respiratory Rate - - Oxygen Saturation 97% 12/14/2022 9:28 AM CDT Inhaled Oxygen Concentration - - Weight 126.1 kg (278 lb) 12/14/2022 9:28 AM CDT Height - - Body Mass Index 47.72 11/13/2022 8:30 AM CDT documented in this encounter Ordered Prescriptions Prescription Sig Dispense Quantity Refills Last Filled Start Date End Date leflunomide (ARAVA) 20 mg tabletIndications: Rheumatoid Arthritis Take 1 tablet (20 mg total) by mouth daily 90 tablet 1 12/14/2022 06/14/2023 hydrOXYchloroQUINE (PLAQUENIL) 200 mg tabletIndications: Connective Tissue Disease,auto immune disease Take 1 tablet (200 mg total) by mouth 2 (two) times a day 180 tablet 1 12/14/2022 06/14/2023 documented in this encounter Progress Notes * Christa Bueno PA - 12/14/2022 10:00 AM CDT Images from the original note were not included. Subjective/Objective Patient ID: Monica Buckner is a 52 y.o. female. Chief Complaint Joint pain HPI Returns for routine follow up. Has had balance issues and feels like she is going to fall over. Always falls to the right or backwards. PCP noted ataxia on exam and referred to neuro. Saw neurologist who did CTA that was normal. Starting PT soon. Ambulating with a cane. Last few weeks has been having increased AM pain/stiffness in her fingers. Pain in right shoulder again. Is going to discuss with PT. Has tried NSAIDs and injections in the past but the most benefit was from PT she reports. Notes rash around her mouth if she eats gluten. Celiac panel was negative. Going to avoid gluten/wheat and try to get in with needle punch machine operator next. Denies fevers, infections, rashes, mouth sores, cough, dyspnea, n/v. Joint pain today is 5 /10. AM stiffness = few minutes Review of Systems Constitutional: Positive for fatigue. Negative for chills and fever. HENT: Negative for congestion and mouth sores. Respiratory: Negative for cough and shortness of breath. Cardiovascular: Negative for chest pain. Gastrointestinal: Negative for abdominal pain, diarrhea, nausea and vomiting. Musculoskeletal: Positive for arthralgias. Negative for myalgias. Skin: Negative for rash. Vitals: Vitals BP 116/82 Pulse 75 Wt 126.1 kg (278 lb) LMP (LMP Unknown) SpO2 97% BMI 47.72 kg/m?? Body mass index is 47.72 kg/m??. Bold X is a current medication. [...] place, and time. appears well-developed and well-nourished. Ambulating with a cane. HENT: Head: Normocephalic. Eyes: Conjunctivae are normal. Pupils are equal and round. Pulmonary/Chest: Effort normal. Musculoskeletal: See cdai. Neurological: alert and oriented to person, place, and time. Skin: Skin is warm and dry. No rash noted. Psychiatric: normal mood and affect. speech is normal and behavior is normal. Cognition and memory are normal. Patient Global: 50 mm Provider Global: 40 mm CDAI: 20 In remission: 0-3 Low: 4-10 Moderate: 11-22 High: 23 or > Labs Lab Results Component Value Date WBC 4.4 12/08/2022 HGB 14.5 12/08/2022 HCT 42.8 12/08/2022 MCV 89.9 12/08/2022 Lab Results Component Value Date GLUCOSE 105 (H) 12/08/2022 CALCIUM 9.3 12/08/2022 SODIUM 140 12/08/2022 POTASSIUM 4.1 12/08/2022 CO2 27 12/08/2022 CHLORIDE 106 12/08/2022 BUNSER 12 12/08/2022 CREATININE 0.76 12/08/2022 Lab Results Component Value Date ALT 44 (H) 12/08/2022 AST 37 (H) 12/08/2022 ALKPHOS 88 12/08/2022 BILITOT 0.5 12/08/2022 Lab Results Component Value Date SEDRATE 6 12/08/2022 Lab Results Component Value Date CRP 5.1 12/08/2022 US right hand/wrist (06/02/17): Moderate synovitis with [...] (HCC) (Primary) Assessment & Plan: Moderate cdai. Some increased synovitis and tenderness noted on peripheral exam today but she reports daily pain is improving in the past few weeks suggest a flare is subsiding. Continue leflunomide 20mg daily and HCQ 400mg daily. Previously advised patient of risk of QT prolongation with zofran and HCQ. Recent labs reviewed with patient. Continue routine eye exams to monitor for plaquenil toxicity. Continue routine labs every 3 months via standing order. Follow up in 6 months. Sooner if needed. Seen with Dr. Crowder. 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 Orders: - Comprehensive metabolic panel; Standing - CBC with auto differential; Standing - Erythrocyte sedimentation rate; Standing - CRP (acute phase); Standing Acute pain of right shoulder Assessment & Plan: Last injection given 01/24/21 which helped then fully resolved with PT. Noticing recurrence recently. Has good ROM but c/o stiffness and generalized joint aching. States she will discuss exercises at upcoming PT appt. Other orders - hydrOXYchloroQUINE (PLAQUENIL) 200 mg tablet; Take 1 tablet (200 mg total) by mouth 2 (two) timesa day - leflunomide (ARAVA) 20 mg tablet; Take 1 tablet (20 mg total) by mouth daily Christa Bueno PA-C Cosigned by Eric Crowder MD at 12/14/2022 5:38 PM CDT documented in this encounter Miscellaneous Notes * Assessment & Plan Note - Christa Bueno PA - 12/14/2022 10:58 AM CDTAssociated Problem(s): Acute pain of right shoulder Last injection given 01/24/21 which helped then fully resolved with PT. Noticing recurrence recently. Has good ROM but c/o stiffness and generalized joint aching. States she will discuss exercises at upcoming PT appt. 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 Some increased synovitis and tenderness noted on peripheral exam today but she reports daily pain is improving in the past few weeks suggest a flare is subsiding. Continue leflunomide 20mg daily and HCQ 400mg daily. Previously advised patient of risk of QT prolongation with zofran and HCQ. Recent labs reviewed with patient. Continue routine eye exams to monitor for plaquenil toxicity. Continue routine labs every 3 months via standing order. Follow up in 6 months. Sooner if needed. Seen with Dr. Crowder. * Assessment & Plan Note - Christa Bueno PA - 12/14/2022 10:51 AM CDTAssociated Problem(s): watermelon inspector current use 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 Routine labs via standing order. documented in this encounter Plan of Treatment Scheduled Orders Name Type Priority Associated Diagnoses Orde r Schedule Comprehensive metabolic panel Lab Routine 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 ([facility]) ([facility]) shelter current use 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 [id number] for 4 Occurrences starting 12/14/2022 until 12/15/2023 CBC with auto differential Lab Routine 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 ([facility]) ([facility]) shelter current use 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 [id number] for 4 Occurrences starting 12/14/2022 until 12/15/2023 Erythrocyte sedimentation rate Lab Routine 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 ([facility]) ([facility]) shelter current use 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 [id number] for 4 Occurrences starting 12/14/2022 until 12/15/2023 CRP (acute phase) Lab Routine 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 ([facility]) ([facility]) shelter current use 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 [id number] for 4 Occurrences starting 12/14/2022 until 12/15/2023 documented as of this encounter Visit Diagnoses Diagnosis 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 ([facility]/HCC) ([facility])- Primary Unspecified inflammatory polyarthropathy watermelon inspector current use 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 Acute pain of right shoulder documented in this encounter Discontinued Medications Medication Sig Discontinue Reason Start Date End Da te hydrOXYchloroQUINE (PLAQUENIL) 200 mg tablet Take 1 tablet (200 mg total) by mouth 2 (two) times a day 11/12/2016 12/14/2022 levothyroxine (Synthroid) 175 mcg tablet Duplicate order 12/14/2022 methotrexate 2.5 mg tablet TAKE 6 TABLETS BY MOUTH ONCE WEEKLY 04/25/2018 12/14/2022 predniSONE (DELTASONE) 20 mg tablet Take three tablets PO once daily x 3 days, 2 tablets daily x 3 days, one tablet daily x 2 days Reasons: RA flare 03/13/2021 12/14/2022 traZODone (DESYREL) 50 mg tablet Take 50 mg by mouth nightly. Duplicate order 12/14/2022 ergocalciferol (VITAMIN D) 50,000 unit capsule Take 1 capsule (50,000 Units total) by mouth once a week Duplicate order 10/04/2018 12/14/2022 cloNIDine (CATAPRES-TTS) 0.2 mg/[address] 0.2 mg on the skin once a week. Duplicate order 12/14/2022 acetaminophen (TYLENOL) 500 mg tablet Take 1 tablet (500 mg total) by mouth Duplicate order 12/14/2022 ibuprofen (ADVIL,MOTRIN) 200 mg tablet take 1 tablet by oral route every 6 hours as needed with food Duplicate order 06/03/2015 12/14/2022 leflunomide (ARAVA) 20 mg tabletIndications:Rheuma toid Arthritis Take 1 tablet (20 mg total) by mouth daily Reorder 09/18/2022 12/14/2022 hydrOXYchloroQUINE (PLAQUENIL) 200 mg tabletIndications:Connec tive Tissue Disease,auto immune disease Take 1 tablet (200 mg total) by mouth 2 (two) times a day 09/18/2022 12/14/2022 documented as of this encounter Care Teams Political Science Chair Relationship Specialty Start Date End Date Kevin Bowles MD [address] [facility] [address] [place] [address] PCP - General 06/19/16 01/16/24 Eric Crowder MD [address] [facility] [address] [place] [address] Rheumatology 01/18/17 Maico Martin MD [address] [facility] [address] [place] [address] Consulting Physician Neurology 11/09/22 documented as of this encounter
--- OUTSIDE RECORDS SUMMARY | 2024-04-01 11:17 | XMS_ITS | Referral Summary ---
Author Organization [id number] Address [address] [place] [address] Phone Care Team Providers Care Fitness Attendant Name Role Phone Eric Crowder MD Unavailable [phone] Maico Martin MD Unavailable [phone] Herminia Kumar MD Unavailable [phone] Kevin Bowles MD Unavailable [phone] Kevin Bowles MD Primary Care Provider [phone] Encounters Date Type Department Care Team Description 02/07/2024 8:30 AM CONTENT ARCHITECT Office Visit [facility] [address] [place] [phone] Herminia Kumar MD Breast lipoma (Primary Dx) 02/02/2024 8:30 AM CONTENT ARCHITECT Office Visit [facility] Neu[facility] [address] [place] [phone] Maico Martin MD Imbalance (Primary Dx) 01/17/2024 Telephone [facility] [address] [place] [phone] Chen Alvarado Scheduling Appointments (New pt - R Lipoma ) 01/12/2024 Orders Only [address] [phone] Christa Bueno PA 01/11/2024 7:51 AM CDT - 01/11/2024 11:59 PM CDT Hospital Encounter [facility] [address] [facility] [address] [place] [address] Mass of right breast, unspecified quadrant Discharge Disposition: Discharge to home or self care 01/11/2024 7:50 AM CDT - 01/11/2024 11:59 PM CDT Hospital Encounter [facility] [address] [facility] [address] [place] [address] Mass of right breast, unspecified quadrant Discharge Disposition: Discharge to home or self care 01/08/2024 8:29 AM CDT - 01/08/2024 11:59 PM CDT Hospital Encounter [facility] [address] [place] [id number] Discharge Disposition: Discharge to home or self care 01/08/2024 8:15 AM CDT Office Visit [facility] [place] [facility] - [facility] [address] [place] [phone] Sampson Montenegro MD Right hand pain (Primary Dx) from Last 3 Months Allergies Active Allergy Reactions Criticality Noted Date Comments Ketorolac Sumatriptan Wheat Edema Medium 12/28/2023 Medications acetaminophen (TYLENOL) 325 mg tablet take 1 - 2 Tablet by oral route 3 times every day 0 0 6 Active loratadine (CLARITIN) 10 mg tablet take 1 tablet by oral route every day 0 0 6 Active levothyroxine (SYNTHROID, LEVOTHROID) 175 mcg tablet take 1 tablet by oral route every day 0 0 6 Active montelukast (SINGULAIR) 10 mg tablet Take 1 tablet (10 mg total) by mouth nightly Active cloNIDine (CATAPRES) 0.2 mg tablet Take 1 tablet (0.2 mg total) by mouth 8 Active lifitegrast 5 % dropperette Administer into affected eye(s) Active ibuprofen 200 mg tab/cap Take 1 tablet by mouth Active traZODone (DESYREL) 50 mg tablet Take 1 tablet (50 mg total) by mouth as needed Active leflunomide (ARAVA) 20 mg tabletIndication s:Rheumatoid Arthritis Take 1 tablet (20 mg total) by mouth daily 90 tablet 1 4 06/28/19 25 Active hydroxychloroqui ne (PLAQUENIL) 200 mg tabletIndication s:Connective Tissue Disease,auto immune disease Take 1 tablet (200 mg total) by mouth 2 (two) times a day 180 tablet 1 4 Active celecoxib (CeleBREX) 200 mg capsule 4 Active triamcinolone (KENALOG) 0.1 % cream APPLY TOPICALLY TO THE AFFECTED AREA TWICE DAILY 4 Active Active Problems Problem Noted Date Diagnosed Date Breast lipoma 01/27/2024 Acute pain of right shoulder 01/24/2021 Assessment & Plan (12/14/2022 10:58 AM CDT): Last injection given 01/24/21 which helped then fully resolved with PT. Noticing recurrence recently. Has good ROM but c/o stiffness and generalized joint aching. States she will discuss exercises at upcoming PT appt. Assessment & Plan (01/24/2021 2:43 PM CDT): Will give intra-articular kenalog injection today. Patient also given order for PT. If no better with kenalog injection, consider XR and then possible MRI. Discussed options with patient who agrees to a right shoulder intra-articular kenalog injection today. Patient was advised of the potential side effects of the medication, including but not limited to increased blood sugar, weight gain, avascular necrosis, glaucoma, cataracts, and/or osteoporosis. Discussed risk of infection with joint injection. Area prepped with betadine and alcohol swabs. 40mg of kenalog injected into the right subacromial joint space. Bandage applied. Patient tolerated procedure well. Dry skin 11/30/2019 Assessment & Plan (08/28/2021 4:41 PM CDT): Patch recently on neck and followed up with derm without any diagnosis. Given topical triamcinolone that resolved this. Assessment & Plan (11/30/2019 5:00 PM CDT): Notes dry skin on forearms, elbows and occasionally behind her ears. Normally only gets this in the winter. Using lotion constantly with little benefit. Denies personal or FHx of psoriasis. Will follow with pcp for further evaluation. Could always consider evaluation by dermatology if symptoms worsen. Paresthesia of both hands 11/12/2017 Assessment & Plan (11/12/2017 5:03 PM CDT): She had abrupt onset of burning cold [...] Multiple thyroid nodules 10/22/2017 Neck pain 09/02/2017 Assessment & Plan (09/02/2017 12:33 PM CDT): She has had increased neck pain and [...] time. Continue Tylenol as needed. 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 [...] in the wrist but overall little change. Vectra 29 (06/01/17) Initial complaints of tenosynovitis of L wrist. Also has had pain and stiffness in hands, wrists. On mtx, hcq, ssz mtx started 09/02/17 Xray bilat hands reveal no erosive changes. [...] up in 3 months. Sooner if needed. Assessment & Plan (12/30/2023 11:28 AM CDT): Moderate cdai. Increased synovitis and tenderness noted [...] up in 6 months. Sooner if needed. Assessment & Plan (06/14/2023 10:52 AM CDT): Cdai in remission. Improvement of synovitis and [...] up in 6 months. Sooner if needed. Assessment & Plan (12/14/2022 10:54 AM CDT): Moderate cdai. Some increased synovitis and tenderness [...] Sooner if needed. Seen with Dr. Crowder. Assessment & Plan (09/18/2022 1:59 PM CDT): Low cdai. Switched to leflunomide after last visit with improvement of peripheral joint synovitis and tenderness as well as improving CRP levels. Continue leflunomide 20mg daily and HCQ 400mg daily. Previously advised patient of risk of QT prolongation with zofran and HCQ. Recent labs reviewed with patient. Continue routine eye exams to monitor for plaquenil toxicity. Continue routine labs every 3 months via standing order. Follow up at next scheduled visit. Sooner if needed. Assessment & Plan (06/12/2022 12:18 PM CDT): Moderate cdai. Repeat hand US revealed little change compared to US from 05/2019 suggesting inflammation remained controlled on current tx. She has been losing weight as well through diet and this has provided some relief of her chronic joint pain including pain in the feet and knees. Since last visit, has been having increased frequency of flares requiring more prednisone tapers so discussed changing treatment. LFTs are elevated so she prefers to stop MTX and try something else. Stop MTX due to elevated LFTs. Will repeat LFTs again in 2 weeks. If normalized, then can start leflunomide 20mg daily as discussed. Discussed potential side effects including but not limited to increased infection, diarrhea, blood count abnormalities, and/or rash. Continue HCQ 400mg daily. Should be able to stop zofran 8mg q8h prn N/V as she usually only takes on the day she doseher MTX. Previously advised patient of risk of QT prolongation with zofran and HCQ. Recent labs reviewed with patient. Continue routine eye exams to monitor for plaquenil toxicity. Continue routine labs every 3 months via standing order. Follow up in 6-8 weeks. Sooner if needed. Assessment & Plan (12/01/2021 3:52 PM CDT): Low cdai. Repeat hand US revealed little change compared to US from 05/2019 suggesting inflammation remained controlled on current tx. She has been losing weight as well through diet and this has provided some relief of her chronic joint pain including pain in the feet and knees. Continue MTX 20mg weekly, folic acid 1mg daily, and HCQ 400mg daily. Increased zofran 8mg q8h prn N/V which she usually only takes on the day she doses her MTX. Previously advised patient of risk of QT prolongation with zofran and HCQ. Recent labs reviewed with patient. Continue routine eye exams to monitor for plaquenil toxicity. Continue routine labs every 3 months via standing order. Follow up in 6 months. Sooner if needed. Assessment & Plan (08/28/2021 4:37 PM CDT): Low cdai. Recent repeat hand US revealed little change compared to US from 05/2019 suggesting inflammation remained controlled on current tx. She has been losing weight as well through diet and this has provided some relief of her chronic joint pain. She is wanting a referral to a chain builder loom control but will call once she discusses coverage with her insurance. Continue MTX 20mg weekly, folic acid 1mg daily, and HCQ 400mg daily. Increased zofran 8mg q8h prn N/V which she usually only takes on the day she doses her MTX. Previously advised patient of risk of QT prolongation with zofran and HCQ. Recent labs reviewed with patient. Continue routine eye exams to monitor for plaquenil toxicity. Continue routine labs via standing order. Follow up in 3 months. Sooner if needed. Seen with Dr. Crowder. Assessment & Plan (05/21/2021 4:27 PM CONTENT ARCHITECT): High cdai. Noticing worsening nausea with MTX 20mg so increased zofran 8mg daily. Has also been splitting MTX dosing 4 tabs in the PM and 4 tabs in the next AM however LFTs have remained stable. Since last visit, has increased synovitis and tenderness in several joints suggesting possible flare vs progression of inflammatory arthritis. Will repeat R hand/wrist US to evaluate for progression that would suggest SNRA. If US findings are worse, consider addition of a biologic next. Advised patient to ask for kenalog IM at time of US if she is continuing to have significant joint complaints. Continue MTX 20mg weekly, folic acid 1mg daily, and HCQ 400mg daily. Increased zofran 8mg q8h prn N/V which she usually only takes on the day she doses her MTX. Previously advised patient of risk of QT prolongation with zofran and HCQ. Recent labs reviewed with patient. Continue routine eye exams to monitor for plaquenil toxicity. Will call patient following US and discuss tx plan and f/u then. Assessment & Plan (01/24/2021 3:14 PM CDT): Moderate cdai. Recent c/o R shoulder and elbow pain the past 2-3 months. Stopped SSZ due to inconsistent dosing. Noticing worsening nausea with MTX 20mg so increased zofran 8mg daily. Has also been splitting MTX dosing 4 tabs in the PM and 4 tabs in the next AM however LFTs have remained stable. Continue MTX 20mg weekly, folic acid 1mg daily, and HCQ 400mg daily. Increased zofran 8mg q8h prn N/V which she usually only takes on the day she doses her MTX. Previously advised patient of risk of QT prolongation with zofran and HCQ. Recent labs reviewed with patient. Continue routine eye exams to monitor for plaquenil toxicity. Follow up in 3 months. Sooner if needed. Seen with Dr. Crowder. Assessment & Plan (10/09/2020 11:42 AM CDT): Low cdai. Continues to have improved synovitis without tenderness on peripheral exam today since increasing MTX. Stopped SSZ due to inconsistent dosing. Noticing worsening nausea with MTX 20mg so increased zofran 8mg daily. Has also been splitting MTX dosing 4 tabs in the PM and 4 tabs in the next AM however LFTs have remained stable. Continue MTX 20mg weekly, folic acid 1mg daily, and HCQ 400mg daily. Increased zofran 8mg q8h prn N/V which she usually only takes on the day she doses her MTX. Previously advised patient of risk of QT prolongation with zofran and HCQ. Recent labs reviewed with patient. Continue routine eye exams to monitor for plaquenil toxicity. Follow up in 3 months. Sooner if needed. Assessment & Plan (07/10/2020 12:19 PM CDT): Low cdai. Continues to have improved synovitis and tenderness on peripheral exam today since increasing MTX. Stopped SSZ due to inconsistent dosing. Noticing worsening nausea with MTX 20mg and requesting increased zofran dose. Continue MTX 20mg weekly, folic acid 1mg daily, and HCQ 400mg daily.Increase zofran 8mg q8h prn N/V which she usually only takes on the day she doses her MTX. Advised patient of risk of QT prolongation with zofran and HCQ. Recent labs reviewed with patient. Continue routine eye exams to monitor for plaquenil toxicity. Follow up in 3 months. Sooner if needed. Assessment & Plan (04/04/2020 1:55 PM CONTENT ARCHITECT): Low cdai. Improved synovitis and tenderness noted on peripheral exam today since increasing MTX last visit. Stopped SSZ after last visit due to inconsistent dosing. Continue MTX 20mg weekly, folic acid 1mg daily, and HCQ 400mg daily. Continue zofran 4mg q8h prn N/V which she usually only takes on the day she doses her MTX. Will check routine labs today. Continue routine eye exams to monitor for plaquenil toxicity. Follow up in 3 months. Sooner if needed. Assessment & Plan (02/29/2020 4:01 PM CONTENT ARCHITECT): Moderate cdai. Increased synovitis and tenderness noted on peripheral exam today. Has been forgetting nighttime dose of SSZ which is likely contributing to increased joint complaints. Due to inconsistent dosing patient would like to discontinue SSZ and increase her MTX. Will stop SSZ due to inconsistent dosing. Increase MTX 20mg weekly. Continue folic acid 1mg daily and HCQ 400mg daily. Continue zofran 4mg q8h prn N/V which she usually only takes on the day she doses her MTX. Continue routine labs via standing order. Continue routine eye exams to monitor for plaquenil toxicity. Follow up in 1 month. Sooner if needed. Assessment & Plan (11/30/2019 4:57 PM CDT): Moderate cdai. No obvious synovitis with mild tenderness noted on peripheral exam today. Joint symptoms remains stable. Recent labs reviewed with patient and are okay. Continue MTX 15mg weekly, folic acid 1mg daily, plaquenil 200mg BID, and sulfasalazine 1500mg BID. Continue zofran 4mg q8h prn N/V which she usually only takes on the day she doses her MTX. Continue routine labs via standing order. Continue routine eye exams to monitor for plaquenil toxicity. Follow up in 3 months. Sooner if needed. Assessment & Plan (08/30/2019 11:49 AM CDT): Moderate cdai. No obvious synovitis with mild tenderness noted on peripheral exam today. Joint symptoms remains stable. Recent labs reviewed with patient and are okay. Continue MTX 15mg weekly, folic acid 1mg daily, plaquenil 200mg BID, and sulfasalazine 1500mg BID. Continue zofran 4mg q8h prn N/V which she usually only takes on the day she doses her MTX. Continue routine labs via standing order. Continue routine eye exams to monitor for plaquenil toxicity. Follow up in 3 months. Sooner if needed. Assessment & Plan (05/31/2019 11:33 AM CDT): Low cdai. No obvious synovitis with some tender joints noted on exam today. Joint symptoms remain stable. Recent labs reviewed with patient and are okay. Continue MTX 15mg weekly, folic acid 1mg daily, plaquenil 200mg BID, and sulfasalazine 1500mg BID. Continue zofran 4mg q8h prn N/V which she usually only takes on the day she doses her MTX. Continue routine labs via standing order. UTD eye exam. Continue routine eye exams to monitor for plaquenil toxicity. Follow up in 3 months. Sooner if needed. Assessment & Plan (03/01/2019 12:18 PM CONTENT ARCHITECT): Low cdai. No obvious synovitis with some tender joints noted on exam today. Joint symptoms remain stable. Continue MTX 15mg weekly, folic acid 1mg daily, plaquenil 200mg BID, and sulfasalazine 1500mg BID. Continue zofran 4mg q8h prn N/V which she usually only takes on the day she doses her MTX. Continue routine labs via standing order. UTD eye exam. Continue routine eye exams to monitor for plaquenil toxicity. Follow up in 3 months. Sooner if needed. Assessment & Plan (11/29/2018 12:58 PM CDT): Low cdai. Notes intermittent increases in pain in her hands, wrists, and feet that last only a few days then resolve. Notes right ulnar wrist pain which is suspicious for tenosynovitis. Discussed referral to PT vs ortho however patient defers at this time. Continue MTX 15mg weekly, folic acid 1mg daily, plaquenil 200mg BID, and sulfasalazine 1500mg BID. Continue zofran 4mg q8h prn N/V which she usually only takes on the day she doses her MTX. Continue routine labs via standing order. UTD eye exam. Continue routine eye exams to monitor for plaquenil toxicity. Follow up in 3 months. Sooner if needed. Assessment & Plan (08/29/2018 1:26 PM CDT): Low cdai. Notes recent flare of pain in hands and feet. Feet pain has since resolved. Few tender PIP joints in the bilateral hands on exam today, however no obvious synovitis. Notes occasional right ulnar wrist pain when picking up objects which is suspicious for tenosynovitis. Continue methotrexate 15mg weekly, folic acid 1mg daily, plaquenil 200mg BID, and sulfasalazine 1500mg BID. Continue zofran 4mg q8h prn N/V which she usually only takes on the day she doses her MTX. Continue routine labs via standing order. UTD eye exam. Continue routine eye exams to monitor for plaquenil toxicity. Follow up in 3 months. Sooner if needed. Assessment & Plan (05/31/2018 12:20 PM CDT): Low cdai. Notes recent flare in hands [...] up in 3 months. Sooner if needed. Assessment & Plan (02/28/2018 11:51 AM CONTENT ARCHITECT): Low cdai. Patient reports that her joints have been feeling better and reports minimal pain and stiffness in her hands. Having some sinus congestion, however will follow with her pcp. Patient currently taking MTX 15mg weekly and states she would like to continue at this dose for a few more months before considering increasing. Few tender and swollen peripheral joints on exam today. Right 1st MTP swollen and tenderness of bilateral midfoot. Will continue MTX 15mg weekly, FA 1mg daily, plaquenil 200mg BID, and sulfasalazine 1500mg BID. If patient is having worsening of symptoms or does not note improvement with current regimen, may consider increasing MTX in the future. Patient has standing order for labs. UTD eye exam. Continue routine eye exams to monitor for retinal toxicity. Follow up in 3 months. Sooner if needed. Assessment & Plan (11/29/2017 5:53 PM CDT): She still has some pain and stiffness in the hands which is unchanged since her last visit. She has no obvious synovitis. Will increase the methotrexate to 15 mg p.o. weekly and continue folic acid 1 mg daily. Continue hydroxychloroquine 200 mg b.i.d. and sulfasalazine 1500 mg b.i.d.. She has a standing order for labs which she is next due in 2 weeks. Continue routine eye exams to monitor for hydroxychloroquine toxicity. Will follow up in 3 months. Assessment & Plan (11/12/2017 5:04 PM CDT): She is doing well with essentially complete resolution of her joint pain since starting methotrexate. She has no active synovitis or joint tenderness on exam today. Will continue methotrexate 10 mg p.o. weekly, folic acid 1 mg daily, hydroxychloroquine 200 mg b.i.d., and sulfasalazine 1500 b.i.d.. She does have a standing order for labs which will be drawn next week and will keep an eye out for these. She is to keep her appointment scheduled next month for follow up. Assessment & Plan (09/02/2017 12:31 PM CDT): She is having increased pain in bilateral PIP joints as well as bilateral knees. I suspect her PIP joint involvement is likely a combination of osteoarthritis and inflammatory arthritis. Her knee pain appears to be more degenerative as this is worse with activity and improved with rest. Recent ultrasound of the right hand and wrist did reveal moderate inflammatory changes with power Doppler activity. She has no active synovitis on exam today although is tender throughout the PIP joints. She had been reluctant to start methotrexate although she is now willing. We will therefore initiate methotrexate 10 mg p.o. weekly for additional management of her inflammatory arthritis. Continue hydroxychloroquine 200 mg b.i.d. and sulfasalazine 1500 mg b.i.d.. She is to obtain labs in 4 weeks. She does have a standing order for labs to be obtained. Follow up in 3 months. Assessment & Plan (06/01/2017 12:37 PM CDT): Having increased pain in bilat hands (L>R) over pip joints and left knee. Has mild fulness over 3rd pip joints on exam. Symptoms not associated with activity. Uncertain if pain is from inflammatory or degenerative source. Will obtain US left hand/wrist to evaluate for inflammatory changes. Obtain labs as below including vectra Da. Pending labs and US will consider MTX to be used as triple therapy with HCQ and SSZ if there is inflammatory changes. Cont SSZ 1500 mg bid and HCQ 200 mg bid. Cont routine eye exams while on HCQ. F/u 3 months. Assessment & Plan (03/04/2017 3:42 PM CONTENT ARCHITECT): Continues to do well with minimal complaints. Has no synovitis on exam and no current joint pain. Recent serology was stable. Cont SSZ 1500 mg bid and HCQ 200 mg bid. Cont routine eye exams while on HCQ. Has standing order for labs and will follow these. F/u 3 months. Assessment & Plan (12/29/2016 4:16 PM CDT): CDAI 7: Low disease activity Continues to do well on her current regimen of SSZ and HCQ. Has no active synovitis on exam and no current joint complaints. Will cont SSZ 1500 mg bid and HCQ 200 mg bid. Cont routine eye exams while on HCQ. Will obtain labs as below to be obtained prior to next visit. F/u 2 months. Assessment & Plan (09/28/2016 4:45 PM CDT): CDAI 6: Low disease activity Doing well overall with minimal complaints and no significant exam findings. Cont SSZ 1500 mg bid, HCQ 200 mg bid. Cont routine eye exams while on HCQ. Labs as below. F/u 3 months [facility] 09/28/2016 Overview (09/28/2016): Serology neg for Sjogren's. Has eye drops per ophth which has helped. Symptoms stable. R parotid gland swelling Involving R parotid gland per imaging. Had ultrasound and needle biopsy which was inconclusive per pt. Follows with ENT. Assessment & Plan (11/12/2017 5:00 PM CDT): Serology neg for Sjogren's. Has eye drops per ophth which has helped. Symptoms stable. Assessment & Plan (09/28/2016 4:47 PM CDT): Serology neg for Sjogren's. Has eye drops per ophth which has helped. Symptoms stable. 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 Assessment & Plan (06/14/2023 10:51 AM CDT): Routine labs via standing order. Assessment & Plan (12/14/2022 10:51 AM CDT): Routine labs via standing order. Assessment & Plan (09/18/2022 1:59 PM CDT): Routine labs via standing order. Assessment & Plan (06/12/2022 10:04 AM CDT): Routine labs via standing order. Assessment & Plan (12/01/2021 2:55 PM CDT): Routine labs via standing order. Assessment & Plan (08/28/2021 2:47 PM CDT): Routine labs via standing order. Assessment & Plan (05/21/2021 4:27 PM CONTENT ARCHITECT): Routine labs via standing order. Assessment & Plan (01/24/2021 3:13 PM CDT): Routine labs via standing order. Assessment & Plan (10/09/2020 11:39 AM CDT): Routine labs via standing order. Assessment & Plan (07/10/2020 11:01 AM CDT): Routine labs via standing order. Due for eye exam. Assessment & Plan (04/04/2020 1:36 PM CONTENT ARCHITECT): Routine labs via standing order. Due for eye exam. Assessment & Plan (02/29/2020 4:01 PM CONTENT ARCHITECT): Routine labs via standing order. Due for eye exam. Assessment & Plan (11/30/2019 1:48 PM CDT): Routine labs via standing order. Due for eye exam. Assessment & Plan (08/30/2019 11:49 AM CDT): Routine labs via standing order. Due for eye exam. Assessment & Plan (05/31/2019 11:01 AM CDT): Routine labs via standing order. Eye exam UTD. Assessment & Plan (03/01/2019 12:18 PM CONTENT ARCHITECT): Routine labs via standing order. Eye exam UTD. Assessment & Plan (11/29/2018 12:56 PM CDT): Routine labs via standing order. Eye exam UTD. Assessment & Plan (08/29/2018 1:24 PM CDT): Routine labs via standing order. Eye exam UTD. Low vitamin D level 09/28/2016 Overview (09/28/2016): Vit D 21 per labs 06/2016 Assessment & Plan (09/28/2016 4:49 PM CDT): Vit D 21 per labs 06/2016. On replacement therapy 50,000 IU weekly. Will recheck level. Migraine 06/03/2015 Overview (06/26/2016): Migraines Seasonal allergic rhinitis 06/03/2015 Overview (06/26/2016): Seasonal nasal allergies Hannah's thyroiditis 06/03/2015 Overview (02/02/2024): Hannah thyroiditis Hannah thyroiditis Carpal tunnel syndrome 10/14/2012 Social History Tobacco Use Types Packs/Day Years [...] on file Legal Sex Female 9:01 PM CONTENT ARCHITECT Gender Identity Not on file Sexual Orientation Not on file Last Filed Vital Signs Vital Sign Reading Time Taken Comments Blood Pressure 132/80 02/02/2024 8:26 AM CONTENT ARCHITECT Pulse 67 02/02/2024 8:26 AM CONTENT ARCHITECT Temperature 36.1 ??C (97 ??F) 02/07/2024 8:32 AM CONTENT ARCHITECT Respiratory Rate 20 10/08/2021 3:39 PM CDT Oxygen Saturation 99% 02/02/2024 8:26 AM CONTENT ARCHITECT Inhaled Oxygen Concentration - - Weight 114.3 kg (252 lb) 02/07/2024 8:32 AM CONTENT ARCHITECT Height 162.6 cm (5' 4 ) 02/07/2024 8:32 AM CONTENT ARCHITECT Body Mass Index 43.26 02/07/2024 8:32 AM CONTENT ARCHITECT Plan of Treatment Not on file Procedures Procedure Name Priority Date/Time Associated Diagnosis Comments VITAMIN B1 PLASMA/SERUM Routine 02/04/2024 9:52 AM CONTENT ARCHITECT VITAMIN B1 Routine 02/04/2024 9:52 AM CONTENT ARCHITECT Imbalance FOLATE Routine 02/04/2024 9:52 AM CONTENT ARCHITECT Imbalance VITAMIN B12 Routine 02/04/2024 9:52 AM CONTENT ARCHITECT Imbalance THYROID FUNCTION [place] Routine 02/04/2024 9:52 AM CONTENT ARCHITECT Imbalance US BREAST RIGHT LIMITED Schedule Routine, Read Routine (OP Routine) 01/11/2024 8:39 AM CDT Mass of right breast, unspecified quadrant DIAGNOSTIC MAMMOGRAM BILATERAL W FELIPE Schedule Routine, Read Routine (OP Routine) 01/11/2024 8:20 AM CDT Mass of right breast, unspecified quadrant XR HAND RIGHT 3 OR MORE VIEWS Schedule Routine, Read Routine (OP Routine) 01/08/2024 8:35 AM CDT Right hand pain COLONOSCOPY 10/08/2021 2:42 PM CDT from Last 3 Months or Most Recently Relevant to Health Maintenance Results * Vitamin B1 (Thiamine), Plasma/Serum (02/04/2024 9:52 AM CONTENT ARCHITECT) Thiamine (Vit B1) 13 8 - 30 nmol/L [facility] Comment: (Note) Vitamin supplementation within 24 hours prior to blood draw may affect the accuracy of the results. This test was developed and its analytical performance characteristics have been determined by [facility]. It has not been cleared or approved by FDA. This assay has been validated pursuant to the CLIA regulations and is used for clinical purposes. MD [facility] [address] [address],[address] [facility] [address] Caroline Gabriel MD, PhD 02/04/2024 9:52 AM CONTENT ARCHITECT 02/04/2024 9:52 AM CONTENT ARCHITECT Narrative [facility] - 02/08/2024 4:10 PM CONTENT ARCHITECT FASTING:NO FASTING: NO us Maico Martin MD LAB BLOOD ORDERABLES Final Res ult Performing Organization Address [facility] de Phone Number [facility]ST [facility] [address] [facility] [address], [address] [place] [address] * Thyroid Function [place] (02/04/2024 9:52 AM CONTENT ARCHITECT) TSH 0.87 mIU/L [facility] Comment: ?Reference Range ?> or = 20 Years ??0.40-4.50 ? Ranges ?First trimester ?0.26-2.66 ?Second trimester ?? 0.55-2.73 ?Third trimester ?0.43-2.91 Blood 02/04/2024 9:52 AM CONTENT ARCHITECT 02/04/2024 9:52 AM CONTENT ARCHITECT Narrative [facility] - 02/08/2024 4:10 PM CONTENT ARCHITECT FASTING:NO FASTING: NO Maico Martin MD LAB BLOOD ORDERABLES Final Res ult Performing Organization Address [facility] de Phone Number QUEST [facility] [address] [place] [address] * Vitamin B1 (02/04/2024 9:52 AM CONTENT ARCHITECT) Thiamine (Vit B1) TNP nmol/L [facility] Comment: TEST NOT PERFORMED ?? Test cancelled for reorder purposes. Blood 02/04/2024 9:52 AM CONTENT ARCHITECT 02/04/2024 9:52 AM CONTENT ARCHITECT Narrative [facility] - 02/08/2024 4:10 PM CONTENT ARCHITECT FASTING:NO FASTING: NO Maico Martin MD LAB BLOOD ORDERABLES Final Res ult Performing Organization Address [facility] Co de Phone Number QUEST [facility] [address] [facility] [address], [address] [place] [address] * Folate (02/04/2024 9:52 AM CONTENT ARCHITECT) Pathologist [facility] Folate, Serum 12.7 ng/mL [facility] Comment: ? Reference Range ? Low: ? <3.4 ? Borderline: ?3.4-5.4 ? Normal: ?>5.4 Blood 02/04/2024 9:52 AM CONTENT ARCHITECT 02/04/2024 9:52 AM CONTENT ARCHITECT Narrative [facility] - 02/08/2024 4:10 PM CONTENT ARCHITECT FASTING:NO FASTING: NO Maico Martin MD LAB BLOOD ORDERABLES Final Res ult Performing Organization Address [facility] Co de Phone Number [facility] [place] [address] [place] [address] * (ABNORMAL) Vitamin B12 (02/04/2024 9:52 AM CONTENT ARCHITECT) Pathologist [facility] Vitamin B12 1,181(H) 200 - 1,100 pg/mL [facility] Blood 02/04/2024 9:52 AM CONTENT ARCHITECT 02/04/2024 9:52 AM CONTENT ARCHITECT Narrative [facility] - 02/08/2024 4:10 PM CONTENT ARCHITECT FASTING:NO FASTING: NO Maico Martin MD LAB BLOOD ORDERABLES Final Res ult Performing Organization Address [facility] Co de Phone Number [facility] [place] [address] [place] [address] * US Breast Right Limited (01/11/2024 8:39 [...] a growing lipoma ??since 11/21/2014. Cynthia Carroll NP IMG MAMMO PROCEDURES Joi l Result * Diagnostic Mammogram Bilateral W Felipe (01/11/2024 [...] consistent with a growing lipoma ??since 11/21/2014. us Cynthia Carroll NP IMG MAMMO PROCEDURES Joi shay Result * XR Hand Right 3+ View (01/08/2024 [...] MD IMG XR PROCEDURES Final Res ult * COLONOSCOPY (10/08/2021 2:42 PM CDT) Anatomical Region Laterality Modality Other Narrative Procedure Note Bill Goodman MD - 10/08/2021 2:42 PM CDT GI ENDOSCOPY [facility] Patient Name: Monica Roman Procedure Date: 10/08/2021 2:42 PM Date of : 1970 Admit Type: Outpatient Age: 51 Gender: Female Attending MD: Katie Powers Room: [facility] ENDOSCOPY ROOM 3 Note Status: Finalized Procedure: Colonoscopy Indications: Screening for colorectal malignant neoplasm, Thisis the patient's first colonoscopy Referring MD: Kevin Bowles MD Providers: Bill Goodman M.D. Medicines: Monitored Anesthesia Care Complications: No immediate complications. Estimated Blood Loss: Estimated blood loss was minimal. Procedure: Pre-Anesthesia Assessment: - Prior to the procedure, a History and Physicalwas performed, and patient medications, allergies and sensitivities were reviewed. The patient'stolerance of previous anesthesia was reviewed. - Immediately prior to administration ofmedications, the patient was re-assessed for adequacy to receive sedatives. - The risks and benefits of the procedure and the sedation options and risks were discussed with the patient. All questions were answered and informed consent was obtained. The benefits, risks and alternatives of theprocedure and sedation were discussed and informed consentwas obtained. All questions were answered. Please referto the signed informed consent document in the medical record. The scope was passed under direct vision.The CF HQ 190L [id number] endoscope was introducedthrough the anus and advanced to the cecum, identified by appendiceal orifice and ileocecal valve. The colonoscopy was performed without difficulty. The patient tolerated the procedure well. The qualityof the bowel preparation was evaluated using the BBPS ([place] Bowel Preparation Scale) with scores of:Right Colon = 3, Transverse Colon = 3 and Left Colon = 3 (entire mucosa seen well with no residual staining, small fragments of stool or opaque liquid). Thetotal BBPS score equals 9. The bowel preparation used was GoLYTELY via split dose instruction. The quality of the bowel preparation was good. Findings: The perianal and digital rectal examinations were normal. Non-bleeding internal hemorrhoids were found during retroflexion. The hemorrhoids were small. Two sessile polyps were found in the descending colon. The polypswere 2 to 3 mm in size. These polyps were removed with a jumbo cold forceps. Resection and retrieval were complete. The exam was otherwise without abnormality. Impression: - Non-bleeding internal hemorrhoids. - Two 2 to 3 mm polyps in the descending colon, removed with a jumbo cold forceps. Resected and retrieved. - The examination was otherwise normal. Recommendation: - Discharge patient to home. - Await pathology results. - Repeat colonoscopy in 7-10 years for surveillance based on pathology results. - Return to referring physician as previously scheduled. - A polyp or polyps were removed during your colonoscopy today. After the pathology result ofthe polyp(s)? ? ?is reviewed, the doctor who performedyour colonoscopy will recommend follow-up colonoscopy to you based on current guidelines by gastroenterology societies: - If only small hyperplastic polyps from the rectumor sigmoid were removed, repeat the colonoscopy in 10 years. - If 1 or 2? ? ?polyps less than 1 cm in size are adenomas, repeat the colonoscopy in 7 years. - If 3 or more polyps are adenomas, repeat the colonoscopy in 3 years. - If there are 10 or more adenomas, repeat the colonoscopy in 1 year. - If any polyp is 10 mm or greater in size, has villous histology or high grade dysplasia,repeat? ? ?the colonoscopy in 3 years. - If a polyp greater than 2 cm was removed with a piecemeal technique, repeat the colonoscopy in 6 months to be certain that there is no residualpolyp. - Sessile serrated polyps are treated like adenomas for surveillance purposes. Attending Participation: I personally performed the entire procedure. Electronically signed by Bill Goodman MD Bill Goodman M.D. 10/08/2021 3:18:00 PM . Number of Addenda: 0 Note Initiated On: 10/08/2021 2:42 PM Recognized by the [place] [employer] for promoting quality in endoscopy Bill Goodman MD ENDOSCOPY PROCEDUR ES Final Result from Last 3 Months or Most Recently Relevant to Health Maintenance Insurance [employer] Now [facility] [employer] [facility] CLAIMS [facility] CLAIMS [facility] CLAIMS Advance Directives For more information, please contact: [phone] * Full Code (Latest Code Status on File) Date Activated Date Inactivated Comments 10/08/2021 2:26 PM 10/08/2021 8:00 PM Care Teams Fitness Attendant Relationship Specialty Start Date End Date Kevin Bowles MD [address] [place] [address] [address] [place] [address] PCP - General Family Medicine 02/02/24 Eric Crowder MD [address] [facility] [address] [place] [address] Rheumatology 01/18/17 Maico Martin MD [address] [facility] [address] [place] [address] Consulting Physician Neurology 11/09/22 Herminia Kumar MD [address] [facility] [address] [place] [address] Consulting Physician General Surgery 01/17/24 Kevin Bowles MD [address] [facility] [address] [place] [address] Referring Physician Family Medicine 01/17/24
--- OUTSIDE RECORDS SUMMARY | 2024-04-01 11:17 | XMS_ITS | Clinical Summary ---
Author Organization [address] [place] [employer] Address [address] [place] [address] Phone Care Team Providers Care Maintenance Craftsman Name Role Phone Eric Crowder MD Unavailable [phone] Maico Martin MD Unavailable [phone] Herminia Kumar MD Unavailable [phone] Kevin Bowles MD Unavailable [phone] Kevin Bowles MD Primary Care Provider [phone] Allergies Active Allergy Reactions Criticality Noted Date [...] She is wanting a referral to a infant toddler lead teacher but will call once she discusses coverage [...] Crowder. Assessment & Plan (05/21/2021 4:27 PM JANITOR): High cdai. Noticing worsening nausea with MTX [...] needed. Assessment & Plan (04/04/2020 1:55 PM JANITOR): Low cdai. Improved synovitis and tenderness noted [...] needed. Assessment & Plan (02/29/2020 4:01 PM JANITOR): Moderate cdai. Increased synovitis and tenderness noted [...] needed. Assessment & Plan (03/01/2019 12:18 PM JANITOR): Low cdai. No obvious synovitis with some [...] needed. Assessment & Plan (02/28/2018 11:51 AM JANITOR): Low cdai. Patient reports that her joints [...] months. Assessment & Plan (03/04/2017 3:42 PM JANITOR): Continues to do well with minimal complaints. [...] per ophth which has helped. Symptoms stable. senior living current use 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 2016 Assessment [...] order. Assessment & Plan (05/21/2021 4:27 PM JANITOR): Routine labs via standing order. Assessment & Plan (01/24/2021 3:13 PM CDT): Routine labs via standing order. Assessment & Plan (10/09/2020 11:39 AM CDT): Routine labs via standing order. Assessment & Plan (07/10/2020 11:01 AM CDT): Routine labs via standing order. Due for eye exam. Assessment & Plan (04/04/2020 1:36 PM JANITOR): Routine labs via standing order. Due for eye exam. Assessment & Plan (02/29/2020 4:01 PM JANITOR): Routine labs via standing order. Due for eye exam. Assessment & Plan (11/30/2019 1:48 PM CDT): Routine labs via standing order. Due for eye exam. Assessment & Plan (08/30/2019 11:49 AM CDT): Routine labs via standing order. Due for eye exam. Assessment & Plan (05/31/2019 11:01 AM CDT): Routine labs via standing order. Eye exam UTD. Assessment & Plan (03/01/2019 12:18 PM JANITOR): Routine labs via standing order. Eye exam [...] thyroiditis Hannah thyroiditis Carpal tunnel syndrome 10/14/2012 Encounters Date Type Department Care Team Description 02/07/2024 8:30 AM JANITOR Office Visit [facility] [address] [place] [phone] Herminia Kumar MD Breast lipoma (Primary Dx) 02/02/2024 8:30 AM JANITOR Office Visit [facility] Neurology [address] [place] [address] [phone] Maico Martin MD Imbalance (Primary Dx) 01/17/2024 Telephone [facility] [address] [place] [address] [phone] Chen Alvarado Scheduling Appointments (New pt - R Lipoma ) 01/12/2024 Orders Only [facility] [address] [place] [phone] Christa Bueno PA 01/11/2024 7:51 AM CDT - 01/11/2024 11:59 PM CDT Hospital Encounter [facility] - [facility] [address] [place] [address] [place] [phone] Mass of right breast, unspecified quadrant Discharge Disposition: Discharge to home or self care 01/11/2024 7:50 AM CDT - 01/11/2024 11:59 PM CDT Hospital Encounter [facility] [address] [place] [phone] Mass of right breast, unspecified quadrant Discharge Disposition: Discharge to home or self care 01/08/2024 8:29 AM CDT - 01/08/2024 11:59 PM CDT Hospital Encounter [facility] [address] [place] [address] Discharge Disposition: Discharge to home or self care 01/08/2024 8:15 AM CDT Office Visit [facility] [address] [place] [phone] Sampson Montenegro MD Right hand pain (Primary Dx) from Last 3 Months Surgical History Surgery Date Site/Laterality Comments CARPAL TUNNEL RELEASE Carpal tunnel release OTHER SURGICAL HISTORY tenosynovitis debridement Medical History Medical History Date Comments Joint pain Family History Medical History Relation Name Comments Heart attack Father Heart disease Maternal Grandfather Heart disease Paternal Grandfather Relation Name Status Comments Father Maternal Grandfather Paternal Grandfather Social History Tobacco Use Types Packs/Day Years [...] on file Legal Sex Female 9:01 PM JANITOR Gender Identity Not on file Sexual Orientation Not on file Obstetrics History Last Filed Vital Signs Vital Sign Reading Time Taken Comments Blood Pressure 132/80 02/02/2024 8:26 AM JANITOR Pulse 67 02/02/2024 8:26 AM JANITOR Temperature 36.1 ??C (97 ??F) 02/07/2024 8:32 AM JANITOR Respiratory Rate 20 10/08/2021 3:39 PM CDT Oxygen Saturation 99% 02/02/2024 8:26 AM JANITOR Inhaled Oxygen Concentration - - Weight 114.3 kg (252 lb) 02/07/2024 8:32 AM JANITOR Height 162.6 cm (5' 4 ) 02/07/2024 8:32 AM JANITOR Body Mass Index 43.26 02/07/2024 8:32 AM JANITOR Plan of Treatment Health Maintenance Due Date Last Done Comments Cervical Cancer Screening 1970 Depression Screening 1970 Hepatitis C Screening 1970 Pneumococcal vaccine <65 (1 of 2 - PCV) 1976 DTaP/Tdap/Td Vaccine (1 - Tdap) 1981 Hepatitis B Screening 1988 Regular Well Visit/Exam 18-64 1988 Zoster Vaccine (1 of 2) 1989 Influenza Vaccine (#1) 2023 12/29/2019 Breast Cancer Screening-Mammogram 01/10/2025 01/11/2024, 11/30/2022, 09/26/2021, Additional history exists Colon Cancer Screening-Colonoscopy 10/09/20312021 Procedures Procedure Name Priority Date/Time Associated Diagnosis Comments VITAMIN B1 PLASMA/SERUM Routine 02/04/2024 9:52 AM JANITOR VITAMIN B1 Routine 02/04/2024 9:52 AM JANITOR Imbalance FOLATE Routine 02/04/2024 9:52 AM JANITOR Imbalance VITAMIN B12 Routine 02/04/2024 9:52 AM JANITOR Imbalance THYROID FUNCTION [place] Routine 02/04/2024 9:52 AM JANITOR Imbalance US BREAST RIGHT LIMITED Schedule Routine, [...] Vitamin B1 (Thiamine), Plasma/Serum (02/04/2024 9:52 AM JANITOR) Thiamine (Vit B1) 13 8 - 30 nmol/L [facility] Comment: (Note) Vitamin supplementation within 24 hours prior to blood draw may affect the accuracy of the results. This test was developed and its analytical performance characteristics have been determined by [employer]. It has not been cleared or approved by FDA. This assay has been validated pursuant to the CLIA regulations and is used for clinical purposes. [facility] [address] [facility] [address] [facility] [address] Caroline Gabriel MD, PhD 02/04/2024 9:52 AM JANITOR 02/04/2024 9:52 AM JANITOR Narrative [facility] - 02/08/2024 4:10 PM JANITOR FASTING:NO FASTING: NO Maico Martin MD LAB BLOOD ORDERABLES Final Res ult [facility] [address] [address], [address] [place] [address] * Thyroid Function [address] (02/04/2024 9:52 AM JANITOR) Pathologist [facility] TSH 0.87 mIU/L [facility] Comment: ?Reference Range ?> or = 20 Years ??0.40-4.50 ? Ranges ?First trimester ?0.26-2.66 ?Second trimester ?? 0.55-2.73 ?Third trimester ?0.43-2.91 Blood 02/04/2024 9:52 AM JANITOR 02/04/2024 9:52 AM JANITOR Narrative [facility] - 02/08/2024 4:10 PM JANITOR FASTING:NO FASTING: NO Maico Martin MD LAB BLOOD ORDERABLES Final Res ult Performing Organization Address [facility]/ZIP Co de Phone Number [facility] [address] [place] [address] * Vitamin B1 (02/04/2024 9:52 AM JANITOR) Thiamine (Vit B1) TNP nmol/L [facility] Comment: TEST NOT PERFORMED ?? Test cancelled for reorder purposes. Blood 02/04/2024 9:52 AM JANITOR 02/04/2024 9:52 AM JANITOR Narrative [facility] - 02/08/2024 4:10 PM JANITOR FASTING:NO FASTING: NO Maico Martin MD LAB BLOOD ORDERABLES Final Res ult Performing Organization Address [facility] Co de Phone Number [facility]ST [facility] [address] [facility] [address], [address] [place] [address] * Folate (02/04/2024 9:52 AM JANITOR) Folate, Serum 12.7 ng/mL [facility] Comment: ? Reference Range ? Low: ? <3.4 ? Borderline: ?3.4-5.4 ? Normal: ?>5.4 Blood 02/04/2024 9:52 AM JANITOR 02/04/2024 9:52 AM JANITOR Narrative [facility] - 02/08/2024 4:10 PM JANITOR FASTING:NO FASTING: NO Maico Martin MD LAB BLOOD ORDERABLES Final Res ult Performing Organization Address [facility] Co de Phone Number [facility] [address] [place] [address] * (ABNORMAL) Vitamin B12 (02/04/2024 9:52 AM JANITOR) Vitamin B12 1,181(H) 200 - 1,100 pg/mL [facility] Blood 02/04/2024 9:52 AM JANITOR 02/04/2024 9:52 AM JANITOR Narrative [facility] - 02/08/2024 4:10 PM JANITOR FASTING:NO FASTING: NO Maico Martin MD LAB BLOOD ORDERABLES Final Res ult Performing Organization Address [facility] de Phone Number [facility] [address] [place] [address] * US Breast Right Limited (01/11/2024 8:39 [...] IMG MAMMO PROCEDURES Joi shay Result * Diagnostic Mammogram Bilateral W Felipe [...] IMG MAMMO PROCEDURES Joi l Result * XR Hand Right 3+ View [...] CDT GI ENDOSCOPY [facility] Patient Name: Monica Romna Procedure Date: 10/08/2021 2:42 PM Date of : 1970 Admit Type: Outpatient Age: 51 Gender: Female Attending MD: Katie Powers Room: [facility] ENDOSCOPY ROOM 3 Note Status: Finalized Procedure: [...] passed under direct vision.The CF HQ [id number] endoscope was introducedthrough the anus and advanced to the cecum, identified by appendiceal orifice and ileocecal valve. The colonoscopy was performed without difficulty. The patient tolerated the procedure well. The qualityof the bowel preparation was evaluated using the BBPS ([place] Bowel Preparation Scale) with scores of:Right Colon [...] On: 10/08/2021 2:42 PM Recognized by the [place] [employer] Gastrointestinal [employer]oscopy for promoting quality in endoscopy Bill Goodman MD ENDOSCOPY PROCEDUR ES Final Result from Last 3 Months or Most Recently Relevant to Health Maintenance Insurance [employer] [facility] CLAIMS [facility] CLAIMS [facility] CLAIMS Advance Directives For more information, please contact: [phone] * Full Code (Latest Code Status on File) Date Activated Date Inactivated Comments 10/08/2021 2:26 PM 10/08/2021 8:00 PM Care Teams Maintenance Craftsman Relationship Specialty Start Date End Date Kevin Bowles MD [address] [place] [address] [address] [place] [phone] PCP - General Family Medicine 02/02/24 Eric Crowder MD [address] [facility] [address] [place] [address] Rheumatology 01/18/17 Maico Martin MD [address] [facility] [address] [place] [address] Consulting Physician Neurology 11/09/22 Herminia Kumar MD [address] [facility] [address] [place] [address] Consulting Physician General Surgery 01/17/24 Kevin Bowles MD [address] [place] [address] [address] [place] [address] Referring Physician Family Medicine 01/17/24
--- OUTSIDE RECORDS SUMMARY | 2024-04-01 11:17 | XMS_ITS | Encounter Summary ---
Author Organization [facility] Address [address] [place] [address] Phone Care Team Providers Care Construction Management Instructor Name Role Phone Kevin Bowles MD Primary Care Provider [phone] Eric Crowder MD Unavailable [phone] Maico Martin MD Unavailable [phone] Reason for Referral * Diagnostic Imaging (Routine) - Pending Review Specialty Diagnoses / Procedures Referred By Contac t Referred To Contact Diagnoses Right hand pain Procedures XR Hand Right 3+ View Sampson Montenegro MD [address] [facility] [address] [place] [address] Phone: tel: fax: [facility] Referral ID Status Reason Start Date Expiration Date V isits Requested Visits Authorized [id number] Pending Review 01/08/2024 02/06/2025 1 1 Reason for Visit * Reason Comments Pain * Consultation (Routine) - Authorized Specialty Diagnoses / Procedures Referred By Contac t Referred To Contact Orthopedic Surgery Diagnoses Trigger finger, right middle finger Trigger finger, right ring finger Cynthia Carroll, JONNY Phone: tel: fax: [facility] (All Locations) Referral ID Status Reason Start Date Expiration Date Visits Requested Visits Authorized [id number] Authorized Specialty Services Required 01/22/2023 03/21/2025 24 24 Encounter Details Date Type Department Care Team (Late st Contact Info) Description 01/08/2024 8:15 AM CDT Office Visit [facility] ([facility]) - [facility] [address] [place] [address] Sampson Montenegro MD [address] [facility] [address] [place] [address] Right hand pain (Primary Dx) Social History Tobacco Use Types [...] on file 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 Right hand trigger finger at the 3rd and 4th digits TREATMENT PLAN We will plan to have her follow with Dr. Beasley for re-evaluation for potential surgical intervention for her trigger finger. We discussed having her utilize ice and her Celebrex 200 mg twice a day for the next week. I would like for her to continue the use of her brace and to also consider masood taping her ring and long finger. Please send a [employer] message or call [phone] if you have questions or concerns. documented in this encounter Progress Notes * Sampson Montenegro MD - 01/08/2024 8:15 AM CDT NEW PATIENT VISIT Subjective CHIEF COMPLAINT Right hand pain HISTORY OF PRESENT ILLNESS This is a very pleasant 53-year-old woman who presents today with a 1 day history of severe right hand pain. She is left-hand dominant. She states that she underwent a trigger finger injection with [facility] about 10 days ago. She states that she was doing well and having improvement in her hand pain when she was driving and felt a sharp pain in her 3rd and 4th digit. She states that she had pain that shot up her arm. She denies any numbness or weakness. She states that her pain limits her ability to flex her fingers. She states that her triggering has returned as well when she flexes her fingers. 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 She presents for further evaluation. PAST MEDICAL HISTORY She has a past medical history of Joint pain. PAST SURGICAL HISTORY She has a past surgical history that includes Carpal tunnel release and Other surgical history. INITIAL REVIEW OF MEDICATIONS She has a current medication list which includes the following prescription(s): acetaminophen, clonidine, ergocalciferol, folic acid, hydroxychloroquine, ibuprofen, leflunomide, levothyroxine, lifitegrast, loratadine, montelukast, and trazodone. DRUG ALLERGIES She is allergic to wheat, ketorolac, and sumatriptan. SOCIAL HISTORY She reports that she has never smoked. She does not have any smokeless tobacco history on file. Shereports that she does not use drugs. Patient denies consuming alcoholic drinks. FAMILY HISTORY Her family history is not on file. REVIEW OF SYSTEMS A complete review of systems was performed and is negative except as documented in the history of present illness, past medical history, and past surgical history. Objective PHYSICAL EXAMINATION GENERAL: In no acute distress. Well-developed and well nourished. PSYCHOLOGICAL: Alert and oriented. Cooperative, normal stated mood, congruent affect. HENT: Normocephalic, atraumatic. Hearing adequate for conversation. EYES: Non-icteric sclera. RESPIRATORY: Non-labored breathing. No audible cough or wheeze. CARDIOVASCULAR: No edema. Bilateral upper extremities are warm well perfused. Bilateral radial pulses were 2+ with regular rate and rhythm. SKIN: No rashes or open wounds involving bilateral upper extremities. NEUROLOGIC: Strength: 5/5 strength with finger flexion, finger abduction, and finger extension of the long and ring finger of the right hand Sensation: intact light touch sensation throughout bilateral upper extremities, in all dermatomes and peripheral nerve distributions. MUSCULOSKELETAL: Inspection: No effusion, soft tissue swelling, or deformity. No muscular atrophy. Palpation: tenderness was present over the 3rd and 4th flexor tendon at the A1 olman. ROM: Hand / wrist: DPC 0 with triggering of the 4th and 3rd digits with finger flexion REVIEW OF X-RAYS/STUDIES Three views of the right hand were obtained and reviewed by myself. There is evidence fracture. Thealignment appears normal. Assessment/Plan IMPRESSION/DIAGNOSIS 1. Right hand trigger finger at the 3rd and 4th digits TREATMENT PLAN I reviewed the patient's imaging studies and discussed her diagnosis, treatment, plan with the patient the room. We will plan to have her follow with Dr. Beasley for re-evaluation for potential surgical intervention for her trigger finger. We discussed having her utilize ice and her Celebrex 200 mg twice a day for the next week. I would like for her to continue the use of her brace and to also consider masood taping her ring and long finger. FOLLOW UP Sampson Montenegro MD Plant Pathologist Division of Physical Medicine and Rehabilitation Department of Orthopaedic Surgery [facility] Sampson Montenegro M.D. dictating using M*Modal Fluency Direct. Fiberglass Machine Operator variances may occur. Sampson Montenegro MD documented in this encounter Plan of [...] ult documented in this encounter Visit Diagnoses Diagnosis Right hand pain- Primary Pain in soft tissues of limb documented in this encounter Care Teams Construction Management Instructor Relationship Specialty Start Date End Date Kevin Bowles MD [address] [facility] [address] [place] [address] PCP - General 06/19/16 01/16/24 Eric Crowder MD [address] [facility] [address] [place] [address] Rheumatology 01/18/17 Maico Martin MD [address] [place] [address] Consulting Physician Neurology 11/09/22 documented as of this encounter
--- OUTSIDE RECORDS SUMMARY | 2024-04-01 11:17 | XMS_ITS | Encounter Summary ---
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 30 tablet 01/12/2024 4 documented in this encounter Plan of Treatment Not on file documented as of this encounter Visit Diagnoses Not on filedocumented in this encounter Care Teams Manager Training Relationship Specialty Start Date End Date Kevin Bowles MD [address] [facility] [address] [place] [address] PCP - General 06/19/16 01/16/24 Eric Crowder MD [address] [facility] [address] [place] [address] Rheumatology 01/18/17 Maico Martin MD [address] [facility] [address] [place] [id number] Consulting Physician Neurology 11/09/22 documented as of this encounter
--- OUTSIDE RECORDS SUMMARY | 2024-04-01 11:17 | XMS_ITS | Encounter Summary ---
Author Organization [facility] Address [address] [place] [address] Phone Care Team Providers Care Airport Screener Name Role Phone Kevin Bowles MD Primary Care Provider [phone] Eric Crowder MD Unavailable [phone] Maico Martin MD Unavailable [phone] Reason for Visit * Reason Onset Date Comments Flaring/Wants Prednisone 04/29/2023 Encounter Details Date Type Department Care Team (Late st Contact Info) Description 04/29/2023 Telephone [facility] [address] [place] [phone] Chantel Ziegler Flaring/Wants Prednisone Social History Tobacco Use Types Packs/Day Years [...] on file 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 N RESOURCES TRAINING MANAGER * Telephone Encounter - Chantel Ziegler. - 04/29/2023 10:55 AM CST Pt reports she has been flaring last 7 - 10 days. Mostly involving her fingers, knees, toes & feet. Wants to know if you will send out Prednisone for her to the [facility] listed in her chart. N RESOURCES TRAINING MANAGER documented in this encounter Plan of Treatment Not on file documented as of this encounter Visit Diagnoses Not on filedocumented in this encounter Care Teams Airport Screener Relationship Specialty Start Date End Date Kevin Bowles MD [facility] [facility] [address] [place] [address] PCP - General 06/19/16 01/16/24 Eric Crowder MD [address] [facility] [address] [place] [address] Rheumatology 01/18/17 Maico Martin MD [address] [facility] [address] [address] [place] [address] Consulting Physician Neurology 11/09/22 documented as of this encounter
--- OUTSIDE RECORDS SUMMARY | 2024-04-01 11:18 | XMS_ITS | Encounter Summary ---
Author Organization [facility] Healthcare Address [address] [place] [address] Care Team Providers Care Wood Window And Door Craftsman Name Role Phone Kevin Bowles MD Primary Care Provider [phone] Eric Crodwer MD Unavailable [phone] Reason for Visit * Auth/Cert Specialty Diagnoses / Procedures Referred By Marc t Referred To Contact Diagnoses Screening for colon cancer Screening for colon cancer [Z12.11] Procedures [place] COLONOSCOPY FLX DX W/COLLJ SPEC WHEN PFRMD [place] COLONOSCOPY W/BIOPSY SINGLE/MULTIPLE COLONOSCOPY OA Referral ID Status Reason Start Date Expiration Date Visits Re quested Visits Authorized [id number] 1 1 Encounter Details Date Type Department Care Team (Latest Contact Info) Description 10/08/2021 2:15 PM CDT - 10/08/2021 3:55 PM CDT Hospital Encounter [facility] [place] [address] [facility] [address] [place] [address] Bill Padilla MD [address] [place] [address] Screening for colon cancer Discharge Disposition: Discharge to home or self [...] on file 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.] tablet (1 mg total) by mouth daily Take one tab daily 90 tablet 1 08/28/2021 12/01/2021 folic acid (FOLVITE) 1 mg tablet Take 1 tablet (1 mg total) by mouth daily 05/31/2018 02/02/2024 hydrOXYchloroQUI NE (PLAQUENIL) 200 mg tabletIndication s:Connective Tissue Disease,auto immune disease Take 1 tablet (200 mg total) by mouth 2 (two) times a day 180 tablet 1 08/28/2021 12/01/2021 hydrOXYchloroQUI NE (PLAQUENIL) 200 mg tablet Take 1 tablet (200 mg total) by mouth 2 (two) times a day 11/12/2016 12/14/2022 ibuprofen (ADVIL,MOTRIN) 200 mg tablet take 1 tablet by oral route every 6 hours as needed with food 0 0 06/03/2015 12/14/2022 methotrexate 2.5 mg tabletIndication s:Rheumatoid Arthritis Take 8 tablets (20 mg total) by mouth every 7 days 96 tablet 1 08/28/2021 12/01/2021 methotrexate 2.5 mg tablet TAKE 6 TABLETS BY MOUTH ONCE WEEKLY 04/25/2018 12/14/2022 ondansetron (ZOFRAN) 8 mg tablet Take 1 tablet (8 mg total) by mouth every 8 (eight) hours as needed for nausea or vomiting 12 tablet 1 08/28/2021 12/01/2021 predniSONE (DELTASONE) 20 mg tablet Take three [...] or self care documented in this encounter H&P Notes * Bill Goodman MD - 10/08/2021 2:42 PM CDT Pre Endoscopy History and Physical Monica Roman is a 51 y.o. female who is here for Procedure(s): COLONOSCOPY OA The indication(s) for the procedure(s): CRC screening. Past Medical History: Diagnosis Date ??? Joint pain Past Surgical History: Procedure Laterality Date ??? CARPAL TUNNEL RELEASE Carpal tunnel release ??? OTHER SURGICAL HISTORY tenosynovitis debridement Social History Tobacco Use ??? Smoking status: Never Smoker ??? Smokeless tobacco: None Substance and Sexual Activity ??? Drug use: Never ??? Sexual activity: None Alcohol Use: Not At Risk ??? Frequency of Alcohol Consumption: Never ??? Average Number of Drinks: Not on file ??? Frequency of Binge Drinking: Not on file History reviewed. No pertinent family history. Allergies Allergen Reactions ??? Ketorolac ??? Sumatriptan Prior to Admission medications Medication Sig Start Date End Date Taking? Authorizing Provider cloNIDine (CATAPRES-TTS) 0.2 mg/[address] 0.2 mg on the skin once a week. Yes Miles Murillo MD ergocalciferol (VITAMIN D) 50,000 unit capsule Take 1 capsule (50,000 Units total) by mouth once a week 10/04/18 Yes Christa Bueno PA folic acid (FOLVITE) 1 mg tablet Take 1 tablet (1 mg total) by mouth daily Take one tab daily 08/28/21 10/08/21 Yes Christa Bueno PA hydrOXYchloroQUINE (PLAQUENIL) 200 mg tablet Take 1 tablet (200 mg total) by mouth 2 (two) times a day 08/28/21 Yes Christa Bueno PA levothyroxine (SYNTHROID, LEVOTHROID) 175 mcg tablet take 1 tablet by oral route every day 06/03/15 Yes Jessica Saeed PA loratadine (CLARITIN) 10 mg tablet take 1 tablet by oral route every day 06/03/15 Yes Jessica Saeed PA methotrexate 2.5 mg tablet Take 8 tablets (20 mg total) by mouth every 7 days 08/28/21 Yes Christa Bueno PA montelukast (SINGULAIR) 10 mg tablet Take 10 mg by mouth nightly Yes Miles Murillo MD ondansetron (ZOFRAN) 8 mg tablet Take 1 tablet (8 mg total) by mouth every 8 (eight) hours as needed for nausea or vomiting 08/28/21 Yes Christa Bueno PA traZODone (DESYREL) 50 mg tablet Take 50 mg by mouth nightly. Yes ProviderMiles MD polyethylene glycol (GoLYTELY) 236-22.74-6.74 -5.86 gram solution 10/07/21 at 6:00 PM drink 1/2 jug of Nulytely over two hours. 10/08/21 at 08:15 AM drink 1/2 jug of Nulytely over two hours till finished. 09/15/21 10/08/21 Yes Bill Goodman MD acetaminophen (TYLENOL) 325 mg tablet take 1 - 2 Tablet by oral route 3 times every day 06/03/15 Jessica Saeed PA ibuprofen (ADVIL,MOTRIN) 200 mg tablet take 1 tablet by oral route every 6 hours as needed with food 06/03/15 Eric Crowder MD PROAIR HFA 90 mcg/actuation inhaler 03/24/17 ProviderMiles MD Review of Systems A pertinent, focused review of systems was completed and negative, except as noted above. OBJECTIVE: Vitals: Vitals: 10/08/21 1439 BP: 150/77 Pulse: 67 Resp: 19 Temp: 36.3 ??C (97.3 ??F) SpO2: 97% Weight: 125.2 kg (276 lb) Height: 162.6 cm (5' 4 ) Physical Exam: Airway: No significant abnormality. Cardiac: No significant abnormality. Pulmonary: No significant abnormality. Neurological: No significant abnormality. Gastrointestinal: No significant abnormality. ASA Score: per Anesthesia Sedation/Anesthesia Plan: per Anesthesia The risks and complications of the procedure have been explained to the patient. Informed consent was signed. Impression and plan: Will proceed with the planned procedure for the reasons stated above. documented in this encounter Procedure Notes * Bill Goodman MD - 10/08/2021 2:42 PM CDTAssociated Order(s): COLONOSCOPY GI ENDOSCOPY NORTH Patient Name: Monica Roman Procedure Date: 10/08/2021 2:42 PM Date of : 1970 Admit Type: Outpatient Age: 51 Gender: Female Attending MD: Bill Goodman M.D. Room: [facility] ENDOSCOPY ROOM 3 Note Status: Finalized Procedure: Colonoscopy Indications: Screening for colorectal malignant neoplasm, This is the patient's first colonoscopy Referring MD: Kevin Bowles MD Providers: Bill Goodman M.D. Medicines: Monitored Anesthesia Care Complications: No immediate complications. Estimated Blood Loss: Estimated blood loss was minimal. Procedure: Pre-Anesthesia Assessment: - Prior to the procedure, a History and Physical was performed, and patient medications, allergies and sensitivities were reviewed. The patient's tolerance of previous anesthesia was reviewed. - Immediately prior to administration of medications, the patient was re-assessed for adequacy to receive sedatives. - The risks and benefits of the procedure and the sedation options and risks were discussed with the patient. All questions were answered and informed consent was obtained. The benefits, risks and alternatives of the procedure and sedation were discussed and informed consent was obtained. All questions were answered. Please refer to the signed informed consent document in the medical record. The scope was passed under direct vision. The CF HQ 190L [id number] endoscope was introduced through the anus and advanced to the cecum, identified by appendiceal orifice and ileocecal valve. The colonoscopy was performed without difficulty. The patient tolerated the procedure well. The quality of the bowel preparation was evaluated using the BBPS ([place] Bowel Preparation Scale) with scores of: Right Colon = 3, Transverse Colon = 3 and Left Colon = 3 (entire mucosa seen well with no residual staining, small fragments of stool or opaque liquid). The total BBPS score equals 9. The bowel preparation used was GoLYTELY via split dose instruction. The quality of the bowel preparation was good. Findings: The perianal and digital rectal examinations were normal. Non-bleeding internal hemorrhoids were found during retroflexion. The hemorrhoids were small. Two sessile polyps were found in the descending colon. The polyps were 2 to 3 mm in size. These [...] your colonoscopy today. After the pathology result of the polyp(s)?is reviewed, the doctor who performed your colonoscopy will recommend follow-up colonoscopy to you based on current guidelines by gastroenterology societies: - If only small hyperplastic polyps from the rectum or sigmoid were removed, repeat the colonoscopy in 10 years. - If 1 or 2?polyps less than 1 cm in size are adenomas, repeat the colonoscopy in 7 years. - If 3 or more polyps are adenomas, repeat the colonoscopy in 3 years. - If there are 10 or more adenomas, repeat the colonoscopy in 1 year. - If any polyp is 10 mm or greater in size, has villous histology or high grade dysplasia, repeat?the colonoscopy in 3 years. - If a polyp greater than 2 cm was removed with a piecemeal technique, repeat the colonoscopy in 6 months to be certain that there is no residual polyp. - Sessile serrated polyps are treated like adenomas for surveillance purposes. Attending Participation: I personally performed the entire procedure. Electronically signed by Bill Goodman MD Bill Goodman M.D. 10/08/2021 3:18:00 PM . Number of Addenda: 0 Note Initiated On: 10/08/2021 2:42 PM Recognized by the [place] [employer] for promoting quality in endoscopy documented in this encounter Plan of Treatment Not on file documented as of this encounter Procedures Procedure Name Priority Date/Time Associated Diagnosis Comments SURGICAL PATHOLOGY Routine 10/08/2021 3: 08 PM CDT Screening for colon cancer COLON BIOPSY 10/08/2021 2:48 PM CDT Screening for colon cancer COLONOSCOPY 10/08/2021 2:42 PM CDT documented in this encounter Results * Surgical pathology (10/08/2021 3:08 PM CDT) Tissue (Polyp(s), colon/colorectal, esophageal, gastric) 10/08/2021 3:08 PM CDT Narrative PATHOLOGY [facility] - 10/10/2021 11:14 AM CDT EPIC results best viewed via link to PDF [facility] [place] [address] Note to Patients: This report may contain a detailed description of human tissue sent by a health care provider to the laboratory for pathologic evaluation. The content of this report is essential for diagnosis and may provide important critical findings. This information may be unfamiliar to patients to review without a medical professional present. It is advised that the patient review this report in the presence of a health care provider who can answer questions and explain the details. SURGICAL PATHOLOGY REPORT FINAL Patient Name: ?? MONICA ROMAN Gender: ??F : ??1970 (Age: 51) Address: ??[address] [place] [address], [place], [place] ??[address] Hospital #: ??[id number] Taken:10/08/2021 Received:10/08/2021 Reported: 10/10/2021 Patient Type: [facility] SDS ?? Service: Gastroenterology Location: Physician(s): ??Katie Dhaliwal M.D. Diagnosis: Large bowel, descending colon, biopsy ? - Hyperplastic polyp mxxm/10/10/2021 11:14 By this signature, I attest that the above diagnosis is based upon my personal examination of the slides(and/or other material indicated in the diagnosis). Lisa Salgado MD Report Electronically Reviewed and Signed Out By ??Lisa Salgado MD 10/10/2021 11:14:05 Microscopic Description and Comment: Microscopic examination substantiates the above cited diagnosis. ?? History: Patient is a 51-year-old woman who presents for screening for colon cancer. ??Operative procedure: Colon biopsy. Specimen(s) Received: A: Cold bx descending colon polyps Gross Description: Received in formalin labeled with the patient's identifiers and designated cold biopsy descending colon polyps are two tissue strips (0.6 and 0.9 cm) filtered in A1. ??Jar 0 ?? sxv/10/09/2021 08:52 PA(s): PIERRE Dickson ([facility]) By this signature, I attest that the above diagnosis is based upon my personal examination of the slides(and/or other material). Addenda/Procedures The performance characteristics of some immunohistochemical stains, fluorescence in-situ hybridization tests and immunophenotyping by flow cytometry cited in this report (if any) were determined by the Surgical Pathology and Flow Cytometry Departments at [facility] as part of an ongoing type disk quality control supervisor program and in compliance with federally mandated regulations drawn from the Clinical Laboratory Improvement Act of 1988 (CLIA '88). ??Some of these tests rely on the use of analyte specific reagents and are subject to specific labeling requirements by the US Food and Drug Administration. ??Such diagnostic tests may only be performed in a facility that is certified by the Department of Health and Human Services as a high complexity laboratory under CLIA '88. ??The FDA has determined that such clearance or approval is not necessary. ??This test is used for clinical purposes. ??It should not be regarded as investigational or for research. ??Nevertheless, federal rules concerning the medical use of analyte specific reagents require that the following disclaimer be attached to the report: This test was developed and its performance characteristics determined by the Surgical Pathology and Flow Cytometry Departments of [facility]. ??It has not been cleared or approved by the U. S. Food and Drug Administration. IMAGES AND SCANNED DOCUMENTS, IF INCLUDED, ONLY VIEWABLE IN PDF VERSION OF REPORT Bill Goodman MD LAB PATHOLOGY [facility] Final Result PATHOLOGY [facility] [address]rd Floor [place], [place] [phone] * COLONOSCOPY (10/08/2021 2:42 PM CDT) Anatomical Region Laterality Modality Other Narrative Procedure Note Bill Goodman MD - 10/08/2021 2:42 PM CDT GI ENDOSCOPY NORTH Patient Name: Monica Roman Procedure Date: 10/08/2021 2:42 PM Date of : 1970 Admit Type: Outpatient Age: 51 Gender: Female Attending MD: Lucita Powers. Room: [facility] ENDOSCOPY ROOM 3 Note Status: Finalized Procedure: [...] passed under direct vision.The CF HQ 190L [id number] endoscope was introducedthrough the anus and advanced to the cecum, identified by appendiceal orifice and ileocecal valve. The colonoscopy was performed without difficulty. The patient tolerated the procedure well. The qualityof the bowel preparation was evaluated using the BBPS ([place] Bowel Preparation Scale) with scores of:Right Colon [...] On: 10/08/2021 2:42 PM Recognized by the [place] [employer] for promoting quality in endoscopy Bill Goodman MD ENDOSCOPY PROCEDUR ES Final Result documented in this encounter Visit Diagnoses Diagnosis Screening for colon cancer Special screening for malignant neoplasms, colon documented in this encounter Administered Medications Inactive Administered Medications - up to 3 most recent administrations Medication Order MAR Action Action Date Dose Rate Site ondansetron (ZOFRAN) injection 4 mg 4 mg, intravenous, Administer over 2 Minutes, Every 6 hours PRN, nausea, vomiting, Starting on Wed10/08/21 at 1426, Pre-Procedure (GI) sodium chloride 0.9% flush 0.5-20 mL 0.5-20 mL, intra-catheter, As needed, line care, Starting on Wed10/08/21 at 1426, Pre-Procedure (GI), Flush volume based on line type and size. Flush before and after each use. , Indications: FlushingIndications:Flushing sodium chloride 0.9% infusion 30 mL/hr, intravenous, Continuous, Starting on Wed10/08/21 at 1500, Pre-Procedure (GI) Restarted 10/08/2021 3:13 PM CDT Rate/Dose Verify 10/08/2021 2:47 PM CDT 30 mL/h r New Bag 10/08/2021 2:42 PM CDT 30 mL/hr 30 mL/hr documented in this encounter Discontinued Medications Medication Sig Discontinue Reason Start Date End Da te polyethylene glycol (GoLYTELY) 236-22.74-6.74 -5.86 gram solution 10/07/21 at 6:00 PM drink 1/2 jug of Nulytely over two hours. 10/08/21 at 08:15 AM drink 1/2 jug of Nulytely over two hours till finished. Therapy completed 09/15/2021 10/08/2021 documented as of this encounter Active and Recently Administered Medications Times are shown in CDT. Continuous Medication Order 10/06/2021 10/07/2021 10/08/2021 sodium chloride 0.9% infusion 30 mL/hr, intravenous, Continuous, Starting on Wed10/08/21 at 1500, Pre-Procedure (GI) 1442 (New Bag - Prov ider: Elizabeth Mcintyre JAYCOB)1447 (Rate/Dose Verify - Provider: Herbert Huddleston CRNA)1512 (Paused - Provider: Herbert Huddleston CRNA - Comment: Switch to gravity)1513 (Restarted - Provider: Herbert Huddleston CRNA)1539 (Stopped - Provider: Meka Gayle RN) PRN Medication Order 10/06/2021 10/07/2021 10/08/2021 ondansetron (ZOFRAN) injection 4 mg 4 mg, intravenous, Administer over 2 Minutes, Every 6 hours PRN, nausea, vomiting, Starting on Wed10/08/21 at 1426, Pre-Procedure (GI) ondansetron (ZOFRAN) injection 4 mg 4 mg, intravenous, Administer over 2 Minutes, Every 30 min PRN, nausea, vomiting, Starting on Wed10/08/21 at 1521, For 2 doses, Recovery (GI), Indications: Nausea and Vomiting sodium chloride 0.9% flush 0.5-20 mL 0.5-20 mL, intra-catheter, As needed, line care, Starting on Wed10/08/21 at 1426, Pre-Procedure (GI), Flush volume based on line type and size. Flush before and after each use. , Indications: Flushing documented in this encounter Orders Medications Ordered That Hari ht Not Have Been Administered Count Last Ordered Date First Ordered Date ondansetron (ZOFRAN) injection 4 mg 2 10/08 sodium chloride 0.9% flush 0.5-20 mL 1 09/20 Discharge Count Last Ordered Date First Orde red Date DISCHARGE PATIENT 1 10/08/2021 documented in this encounter Care Teams Wood Window And Door Craftsman Relationship Specialty Start Date End Date Kevin Bowles MD [facility] [facility] [address] [place] [address] PCP - General 06/19/16 01/16/24 Eric Crowder MD [address] [facility] [address] [place] [address] Rheumatology 01/18/17 documented as of this encounter
--- OUTSIDE RECORDS SUMMARY | 2024-04-01 11:18 | XMS_ITS | Encounter Summary ---
Author Organization [facility] Address [address] [place] [address] Phone Care Team Providers Care It Architecture Consultant Name Role Phone Kevin Bowles MD Primary Care Provider [phone] Eric Crowder MD Unavailable [phone] Reason for Visit * Reason Onset Date Comments Rash on Neck 07/07/2021 Encounter Details Date Type Department Care Team (Late st Contact Info) Description 07/07/2021 Telephone [facility] [address] [place] [phone] Chantel Ziegler Rash on Neck Social History Tobacco Use Types Packs/Day Years Used Date Smoking Tobacco: Never Alcohol Use Standard Drinks/Week Comments Yes 0 (1 standard drink = 0.6 oz pur e alcohol) Comments Unknown Sex and Gender Information Value Date Recorded Sex Assigned at Not on file Legal Sex Female 9:01 PM [employer]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 Asked her to call if she has additionalquestions or concerns. Asked her to have derm send records. * Telephone Encounter - MeChrista barton PA - 07/08/2021 12:50 PM CDT Has she seen dermatology yet? Would have her evaluated there first. Would continue with our currentmedications at this time. * Telephone Encounter - Eric Crowder MD - 07/08/2021 12:05 PM CDT Rash looks very nonspecific. Would recommend derm evaluation and continue our current treatment plan. * Telephone Encounter - Christa Bueno PA - 07/08/2021 11:58 AM CDT Thoughts? Pt is seronegative. Have her see derm first? * Telephone Encounter - Chantel Ziegler - 07/07/2021 3:30 PM CDT Images from the original note were not included. I just spoke with you about the rash on my neck. Here are the photos. Thank you, Monica KAMARA [birth year] documented in this encounter Plan of Treatment Not on file documented as of this encounter Visit Diagnoses Not on filedocumented in this encounter Care Teams It Architecture Consultant Relationship Specialty Start Date End Date Kevin Bowles MD [facility] [facility] [address] [place] [address] PCP - General 06/19/16 01/16/24 Eric Crowder MD [address] [place] [address] Rheumatology 01/18/17 documented as of this encounter
--- OUTSIDE RECORDS SUMMARY | 2024-04-01 11:18 | XMS_ITS | Encounter Summary ---
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; Dry skin Social History Tobacco Use Types Packs/Day Years Used Date Smoking Tobacco: Never Alcohol Use Standard Drinks/Week Comments Yes 0 (1 standard drink = 0.6 oz pur e alcohol) Comments Unknown Sex and Gender Information Value Date Recorded Sex Assigned at Not on file 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 Gender Identity Not on file Sexual Orientation Not on file documented as of this encounter Last Filed Vital Signs Vital Sign Reading Time Taken Comments Blood Pressure 128/82 08/28/2021 2:32 PM CDT Pulse 64 08/28/2021 2:32 PM CDT Temperature - - Respiratory Rate - - Oxygen Saturation 97% 08/28/2021 2:32 PM CDT Inhaled Oxygen Concentration - - Weight 131.3 kg (289 lb 6.4 oz) 08/28/2021 2:32 PM CDT Height 162.6 cm (5' 4 ) 08/28/2021 2:32 PM CDT Body Mass Index 49.68 08/28/2021 2:32 PM CDT documented in this encounter Ordered Prescriptions Prescription Sig Dispense Quantity Refills Last Filled Start Date End Date ondansetron (ZOFRAN) 8 mg tablet Take 1 tablet (8 mg total) by mouth every 8 (eight) hours as needed for nausea or vomiting 12 tablet 1 08/28/2021 2 methotrexate 2.5 mg tabletIndications: Rheumatoid Arthritis Take 8 tablets (20 mg total) by mouth every 7 days 96 tablet 1 08/28/2021 2 hydrOXYchloroQUINE (PLAQUENIL) 200 mg tabletIndications: Connective Tissue Disease,auto immune disease Take 1 tablet (200 mg total) by mouth 2 (two) times a day 180 tablet 1 08/28/2021 2 folic acid (FOLVITE) 1 mg tablet Take 1 tablet (1 mg total) by mouth daily Take one tab daily 90 tablet 1 08/28/2021 2 documented in this encounter Progress Notes * Christa Bueno PA - 08/28/2021 2:30 PM CDT Images from the original note were not included. Subjective/Objective Patient ID: Monica Buckner is a 51 y.o. female. Chief Complaint Joint pain HPI Returns for routine follow up. Had Shingrix vaccine 06/25 and then developed cellulitis at the injection site. Has not had 2nd injection yet. Had rash on neck and seen by derm who did not formally diagnose anything but thought it could be psoriasis and gave a higher dose triamcinolone cream. Has been watching diet and losing weight. Wanting to consider seeing a fac engineer that can also helpwith food to eat for her inflammatory arthritis. Overall is feeling better regarding her previous joint complaints. Denies fevers, infections, rashes, mouth sores, cough, dyspnea, n/v. Joint pain today is 2 /10. AM stiffness = few minutes Review of Systems Constitutional: Positive for fatigue. Negative for chills and fever. HENT: Negative for congestion and mouth sores. Respiratory: Negative for cough and shortness of breath. Cardiovascular: Negative for chest pain. Gastrointestinal: Negative for abdominal pain, diarrhea, nausea and vomiting. Musculoskeletal: Positive for arthralgias. Negative for myalgias. Skin: Negative for rash. Vitals: Vitals BP 128/82 Pulse 64 Ht 162.6 cm (5' 4 ) Wt 131.3 kg (289 lb 6.4 oz) SpO2 97% BMI 49.68 kg/m?? Body mass index is 49.68 kg/m??. Bold X is a current medication. Medication Taking/taken D/C or avoidance reason Hydroxychloroquine X ?? Methotrexate -started 09/02/2017 X ?? Leflunomide ? Azathioprine ? Sulfasalazine x Inconsistent dosing so was d/c CellCept ? Humira ? Enbrel ? Simponi ? Cimzia ? Simponi aria ? Remicade ? Cosentyx ? Taltz ? Orencia ? Stelara ? Tremfya ? Xeljanz ? Rinvoq ? Actemra ? Kevzara ? Olumiant ? Kineret ? Benlysta ? Rituxan ? Otezla ? NSAIDs ? Prednisone ? Physical Exam Constitutional: oriented to person, place, [...] is normal. Cognition and memory are normal. Labs Lab Results Component Value Date WBC 5.2 08/22/2021 HGB 13.4 08/22/2021 HCT 41.1 08/22/2021 MCV 89.0 08/22/2021 Lab Results Component Value Date GLUCOSE 85 08/22/2021 CALCIUM 9.5 08/22/2021 SODIUM 140 08/22/2021 POTASSIUM 3.8 08/22/2021 CO2 29 08/22/2021 CHLORIDE 104 08/22/2021 BUNSER 12 08/22/2021 CREATININE 0.76 08/22/2021 Lab Results Component Value Date ALT 31 (H) 08/22/2021 AST 19 08/22/2021 ALKPHOS 70 08/22/2021 BILITOT 0.7 08/22/2021 Lab Results Component Value Date SEDRATE 28 08/22/2021 Lab Results Component Value Date CRP 9.8 (H) 08/22/2021 US right hand/wrist (06/02/17): Moderate synovitis with [...] in the wrist but overall little change. Patient Global: 20 mm Provider Global: 20 mm CDAI: 5 In remission: 0-3 Low: 4-10 Moderate: 11-22 High: 23 or > Assessment/Plan Diagnoses and all orders for this visit: 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/HCC) ([facility]) (Primary) Assessment & Plan: Low cdai. Recent repeat hand US revealed little change compared to US from 05/2019 suggesting inflammation remained controlled on current tx. She has been losing weight as well through diet and this has provided some relief of her chronic joint pain. She is wanting a referral to a fac engineer but willcall once she discusses coverage with her insurance. [...] Sooner if needed. Seen with Dr. Crowder. 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 Dry skin Assessment & Plan: Patch recently on neck and followed up with derm without any diagnosis. Given topical triamcinolonethat resolved this. Other orders - folic acid (FOLVITE) 1 mg tablet; Take 1 tablet (1 mg total) by mouth daily Take one tab daily - hydrOXYchloroQUINE (PLAQUENIL) 200 mg tablet; Take 1 tablet (200 mg total) by mouth 2 (two) timesa day - methotrexate 2.5 mg tablet; Take 8 tablets (20 mg total) by mouth every 7 days - ondansetron (ZOFRAN) 8 mg tablet; Take 1 tablet (8 mg total) by mouth every 8 (eight) hours as needed for nausea or vomiting Christa Bueno PA-C Cosigned by Eric Crowder MD at 08/28/2021 4:45 PM CDT documented in this encounter Miscellaneous Notes * Assessment & Plan Note - Christa Bueno PA - 08/28/2021 4:40 PM CDT Associated Problem(s): Dry skin Patch recently on neck and followed up with derm without any diagnosis. Given topical triamcinolonethat resolved this. * Assessment & Plan Note - Christa Bueno PA - 08/28/2021 4:35 PM CDT Associated Problem(s): 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/HCC) (HCC) Low cdai. Recent repeat hand US revealed little change compared to US from 05/2019 suggesting inflammation remained controlled on current tx. She has been losing weight as well through diet and this has provided some relief of her chronic joint pain. She is wanting a referral to a fac engineer but ciera once she discusses coverage with her insurance. 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 Dry skin Other symptoms involving skin and integumentary tissues documented in this encounter Discontinued Medications Medication Sig Discontinue Reason Start Date End Da te folic acid (FOLVITE) 1 mg tablet Take 1 tablet (1 mg total) by mouth daily Take one tab daily Reorder 05/21/2021 08/28/2021 hydrOXYchloroQUINE (PLAQUENIL) 200 mg tabletIndications:Conne ctive Tissue Disease,auto immune disease Take 1 tablet (200 mg total) by mouth 2 (two) times a day Reorder 05/21/2021 08/28/2021 methotrexate 2.5 mg tabletIndications:Rheum atoid Arthritis Take 8 tablets (20 mg total) by mouth every 7 days Reorder 05/21/2021 08/28/2021 ondansetron (ZOFRAN) 8 mg tablet Take 1 tablet (8 mg total) by mouth every 8 (eight) hours as needed for nausea or vomiting Reorder 05/30/2021 08/28/2021 documented as of this encounter Care Teams Cube Cutter Relationship Specialty Start Date End Date Kevin Bowles MD [address] [facility] [facility] [address] [place] [address] PCP - General 06/19/16 01/16/24 Eric Crowder MD [address] [facility] [address] [place] [address] Rheumatology 01/18/17 documented as of this encounter
--- OUTSIDE RECORDS SUMMARY | 2024-04-01 11:18 | XMS_ITS | Encounter Summary ---
Author Organization [facility] Address [address] [place] [address] Care Team Providers Care Clergy Member Name Role Phone Kevin Bowles MD Primary Care Provider [phone] Eric Crowder MD Unavailable [phone] Reason for Visit * Auth/Cert Specialty Diagnoses / Procedures Referred By Contlatesha t Referred To Contact Diagnoses Screening for colon cancer Screening for colon cancer [Z12.11] Procedures RI COLONOSCOPY FLX DX W/COLLJ SPEC WHEN PFRMD RI COLONOSCOPY W/BIOPSY SINGLE/MULTIPLE COLONOSCOPY OA Referral ID Status Reason Start Date Expiration Date Visits Re quested Visits Authorized [id number] 1 1 Encounter Details Date Type Department Care Team (Late st Contact Info) Description 10/08/2021 2:47 PM CDT Anesthesia Event [facility] [place] [address] [facility] [address] [place] [address] Nithin Allen MD [address] [place] [address] Herbert Huddleston CRNA [address] [place] [address] Anesthesia Record Procedure Summary Procedure Name Responsible Anesthesiologist Anesthesia Start Time Anesthesia Stop Time COLON BIOPSY (Left: Colon) Nithin Allen MD 10/08/21 1447 10/08/21 1523 Events Date Time Event Comment 10/08/2021 1447 An Start 1447 An Start Data 1447 An Data Art 1448 In Room 1454 Start Supplemental O2 1454 Patient Positioned Laterally 1454 An Induction The patient was reevaluated immediately before moderate or deep sedation use and before anesthesia induction. 1456 Anesthesia Ready 1457 Proc Start 1513 Proc Fin 1516 an stop data 1517 Out of Room 1522 Handoff to RN I completed my handoff to the receiving nurse during which we: 1. Patient identified 2. Responsible provider identified 3. Pertinent medical history reviewed 4. Procedure type and surgical course discussed 5. Intraoperative anesthetic management and any significant issues discussed 6. Expectations and concerns for postop period discussed 7. Questions solicited from receiving nurse 8. Patient disposition at the time of handoff: PACU,phase II 1523 An Stop Meds Name Total lidocaine (cardiac) syringe 2 % 100 mg propofol 100 mg propofol 237.88 mg sodium chloride 0.9% infusion 400 mL * Agents Name O2% N2O O2 * Blood No blood administrations on file. 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 Gender Identity Not on file Sexual Orientation Not on file documented as of this encounter OR Notes * Anesthesia Postprocedure Evaluation - Nithin Allen MD - 10/08/2021 3:34 PM CDT Patient: Monica Buckner Procedure Summary Date: 10/08/21 Room / Location: [facility]COPY ROOM 3 / [facility] Anesthesia Start: 1447 Anesthesia Stop: 1523 Procedure: COLON BIOPSY (Left Colon) Diagnosis: Screening for colon cancer (Screening for colon cancer [Z12.11]) Providers: Bill Goodman MD Responsible Provider: Nithin Allen MD Anesthesia Type: MAC ASA Status: 3 Anesthesia Type: MAC Last vitals BP 118/77 (BP Location: Left arm, Patient Position: Lying) Pulse 70 Temp 36.3 ??C (97.3 ??F) (Temporal) Resp 19 SpO2 95% Anesthesia Post Evaluation Patient location during evaluation: PACU Patient participation: complete - patient participated Level of consciousness: fully awake Pain management: adequate Airway patency: adequate and patent Evidence of recall: no Cardiovascular status: acceptable Respiratory status: acceptable Hydration status: acceptable Pt is: normothermic Nausea/Vomiting status: none No complications documented. * Anesthesia Preprocedure Evaluation - Nithin Allen MD - 10/08/2021 3:34 PM CDT Images from the original note were not included. Anesthesia Evaluation Monica Buckner is a 51 y.o. female Procedure(s): COLON BIOPSY Pre-Op Diagnosis Codes: * Screening for colon cancer [Z12.11] Patient Active Problem List Diagnosis ??? Migraine ??? Seasonal allergic rhinitis ??? Lymphocytic thyroiditis ??? 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/HCC) (HCC) ??? [place] (HCC) ??? 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 Low vitamin D level ??? Carpal tunnel syndrome ??? Neck pain ??? Paresthesia of both hands ??? Dry skin ??? Acute pain of right shoulder Past Medical History: Diagnosis Date ??? Joint pain Past Surgical History: Procedure Laterality Date ??? CARPAL TUNNEL RELEASE Carpal tunnel release ??? OTHER SURGICAL HISTORY tenosynovitis debridement OB History No obstetric history on file. Allergies Allergen Reactions ??? Ketorolac ??? Sumatriptan Taking? Last Dose Start Date End Date Provider acetaminophen (TYLENOL) 325 mg tablet 06/03/15 -- Jessica Saeed PA take 1 - 2 Tablet by oral route 3 times every day cloNIDine (CATAPRES-TTS) 0.2 mg/24 hr Past Week -- -- Miles Murillo MD ergocalciferol (VITAMIN D) 50,000 unit capsule Past Week 10/04/18 -- Christa Willis PA Take 1 capsule (50,000 Units total) by mouth once a week Notes: Eric Crowder is supervising folic acid (FOLVITE) 1 mg tablet Past Week 08/28/21 10/08/21 Christa Bueno PA Take 1 tablet (1 mg total) by mouth daily Take one tab daily hydrOXYchloroQUINE (PLAQUENIL) 200 mg tablet Past Week 08/28/21 -- Christa Bueno PA Take 1 tablet (200 mg total) by mouth 2 (two) times a day Notes: Supervising MD Eric Crowder ibuprofen (ADVIL,MOTRIN) 200 mg tablet 06/03/15 -- Eric Crowder MD take 1 tablet by oral route every 6 hours as needed with food levothyroxine (SYNTHROID, LEVOTHROID) 175 mcg tablet Past Week 06/03/15 -- Jessica Saeed PA take 1 tablet by oral route every day loratadine (CLARITIN) 10 mg tablet Past Week 06/03/15 -- Jessica Saeed PA take 1 tablet by oral route every day methotrexate 2.5 mg tablet Past Week 08/28/21 -- Christa Bueno PA Take 8 tablets (20 mg total) by mouth every 7 days Notes: Dr. Eric Crowder supervising montelukast (SINGULAIR) 10 mg tablet Past Week -- -- Miles Murillo MD ondansetron (ZOFRAN) 8 mg tablet Past Week 08/28/21 -- Christa Bueno PA Take 1 tablet (8 mg total) by mouth every 8 (eight) hours as needed for nausea or vomiting PROAIR HFA 90 mcg/actuation inhaler 03/24/17 -- Miles Murillo MD traZODone (DESYREL) 50 mg tablet Past Week -- -- Provider, MD Miles Current Facility-Administered Medications: ??? ondansetron (ZOFRAN) injection 4 mg, 4 mg, intravenous, Q6H PRN ??? ondansetron (ZOFRAN) injection 4 mg, 4 mg, intravenous, Q30 Min PRN ??? sodium chloride 0.9% flush 0.5-20 mL, 0.5-20 mL, intra-catheter, PRN ??? sodium chloride 0.9% infusion, 30 mL/hr, intravenous, Continuous, Last Rate: 30 mL/hr at 10/08/21 1447, Restarted at 10/08/21 1513 Social History Tobacco Use Smoking Status Never Smoker Smokeless Tobacco Not on file Alcohol Use: Not At Risk ??? Frequency of Alcohol Consumption: Never ??? Average Number of Drinks: Not on file ??? Frequency of Binge Drinking: Not on file Substance and Sexual Activity Drug Use Never History reviewed. No pertinent family history. Vitals: 10/08/21 1439 10/08/21 1519 BP: 150/77 118/77 Pulse: 67 70 Resp: 19 19 Temp: 36.3 ??C (97.3 ??F) 36.3 ??C (97.3 ??F) SpO2: 97% 95% PT: No results found for requested labs within last 720 hours. INR: No results found for requested labs within last 720 hours. APTT: No results found for requested labs within last 720 hours. Hgb A1C: No results found for requested labs within last 720 hours. CBC RBC: No results found for requested labs within last 720 hours. RDW: No results found for requested labs within last 720 hours. MCHC: No results found for requested labs within last 720 hours. MCH: No results found for requested labs within last 720 hours. MCV: No results found for requested labs within last 720 hours. Hct: No results found for requested labs within last 720 hours. Hgb: No results found for requested labs within last 720 hours. WBC: No results found for requested labs within last 720 hours. MPV: No results found for requested labs within last 720 hours. Platelets: No results found for requested labs within last 720 hours. RDW CV: No results found for requested labs within last 720 hours. RDW Sd: No results found for requested labs within last 720 hours. BMP Glucose: No results found for requested labs within last 720 hours. Calcium: No results found for requested labs within last 720 hours. Sodium: No results found for requested labs within last 720 hours. Potassium: No results found for requested labs within last 720 hours. CO2: No results found for requested labs within last 720 hours. Chloride: No results found for requested labs within last 720 hours. BUN: No results found for requested labs within last 720 hours. Creatinine: No results found for requested labs within last 720 hours. DOS Physical Exam Medical history, medications, and allergies reviewed. Attestation: With today's edits, I endorse the the findings of the H&P dated: 10/08/2021. Airway Exam: Mallampati: III Cervical ROM: FROM Cardiovascular Exam: Rate: regular Rhythm: regular Pulmonary Exam: LCTA Dental Exam: Appears intact Current state: Patient's current state is cooperative. Anesthesia Plan ASA 3 My patient is approved for the Anesthesia Controlled Medication protocol when under care of a SUPERVISOR NUTRITIONAL YEAST Planned anesthesia: MAC Induction: Induction: intravenous. Postoperative Plan: No plan for postoperative opioid use. No postoperative mechanical ventilation intended. Patient's planned disposition post procedure is Outpatient. Planned trial extubation. Informed Consent: Discussed plan with SUPERVISOR NUTRITIONAL YEAST. Anesthesia plan and risks discussed with patient. Consent and Attending signature: I and/or my designee have discussed the anesthesia plan, benefits, possible alternatives, parental presence at time of induction (if indicated), and clinically relevant risks that may include dental injury, unintentional awareness, and/or other complications. The patient and/or parent/legal guardian understand, and agree to proceed. All questions answered. documented in this encounter Plan of Treatment Not on file documented as of this encounter Visit Diagnoses Not on filedocumented in this encounter Administered Medications Inactive Administered Medications - up to 3 most recent administrations Medication Order MAR Action Action Date Dose Rate Site lidocaine (cardiac) (XYLOCAINE) preservative free injection intravenous, As needed, Starting on Wed10/08/21 at 1454, Anesthesia Intra-op, Indications: Ventricular ArrhythmiasIndications:V entricular Arrhythmias Given 10/08/2021 2:54 PM CDT 100 mg propofoL (DIPRIVAN) 10 mg/mL IV intravenous, As needed, Starting on Wed10/08/21 at 1454, Anesthesia Intra-op Given 10/08/2021 2:54 PM CDT 100 mg propofoL (DIPRIVAN) 10 mg/mL IV intravenous, Continuous PRN, Starting on Wed10/08/21 at 1454, Anesthesia Intra-op New Bag 10/08/2021 2:54 PM CDT 100 mcg/kg/min 75.12 mL/hr sodium chloride 0.9% infusion 30 mL/hr, intravenous, Continuous, Starting on Wed10/08/21 at 1500, Pre-Procedure (GI) Restarted 10/08/2021 3:13 PM CDT Rate/Dose Verify 10/08/2021 2:47 PM CDT 30 mL/h r New Bag 10/08/2021 2:42 PM CDT 30 mL/hr 30 mL/hr documented in this encounter Care Teams Clergy Member Relationship Specialty Start Date End Date Kevin Bowles MD [address] [place] [address] [address] PCP - General 06/19/16 01/16/24 Eric Crowder MD [address] [facility] [address] [place] [address] Rheumatology 01/18/17 documented as of this encounter
--- OUTSIDE RECORDS SUMMARY | 2024-04-01 11:18 | XMS_ITS | Encounter Summary ---
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 Please fax to [facility] [employer] [facility] as they are not in [employer] system. 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
--- OUTSIDE RECORDS SUMMARY | 2024-04-01 11:18 | XMS_ITS | Encounter Summary ---
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 Social History [...] Legal Sex Female 9:01 PM DIRECT MARKETING 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 Gender Identity Not on file Sexual Orientation Not on file documented as of this encounter Plan of Treatment Scheduled Orders Name Type Priority Associated Diagnoses Orde r Schedule Comprehensive metabolic panel Lab Routine 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/HCC) (HCC) [facility] current use 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 6 Occurrences starting 11/25/2021 until 05/26/2023, 1 completed CBC with auto differential Lab Routine 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/HCC) (HCC) 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 q12 weeks for 6 Occurrences starting 11/25/2021 until 11/25/2022, 2 completed Erythrocyte sedimentation rate Lab Routine 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/HCC) (HCC) q12 weeks for 6 Occurrences starting 11/25/2021 until 11/25/2022, 1 completed CRP (acute phase) Lab Routine 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/HCC) (HCC) q12 weeks for 6 Occurrences starting 11/25/2021 until 11/25/2022, 2 completed documented as of this encounter Procedures Procedure Name Priority Date/Time Associated Diagnosis Comments CBC WITH AUTO DIFFERENTIAL Routine 06/08/2022 10:20 AM CDT 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/HCC) (HCC) 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 ERYTHROCYTE SEDIMENTATION RATE Routine 06/08/2022 10:20 AM CDT CRP (ACUTE PHASE) Routine 06/08/2022 10: 20 AM CDT COMPREHENSIVE METABOLIC PANEL Routine 06/08/2022 10:20 AM CDT CBC WITH AUTO DIFFERENTIAL Routine 02/25/2022 12:05 PM DIRECT MARKETING 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 ERYTHROCYTE SEDIMENTATION RATE Routine 02/25/2022 12:05 PM DIRECT MARKETING 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 CRP (ACUTE PHASE) Routine 02/25/2022 12: 05 PM DIRECT MARKETING 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/HCC) (HCC) COMPREHENSIVE METABOLIC PANEL Routine 02/25/2022 12:05 PM DIRECT MARKETING 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 CBC WITH AUTO DIFFERENTIAL Routine 11/26/2021 11:54 AM CDT 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/HCC) (HCC) [facility] current use 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 ERYTHROCYTE SEDIMENTATION RATE Routine 11/26/2021 11:54 AM CDT 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/HCC) (HCC) CRP (ACUTE PHASE) Routine 11/26/2021 11: 54 AM CDT 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/HCC) (HCC) COMPREHENSIVE METABOLIC PANEL Routine 11/26/2021 11:54 AM CDT 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/HCC) (HCC) [facility] current use 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 documented in this encounter Results * (ABNORMAL) CRP (acute phase) (06/08/2022 10:20 AM CDT) C-RP 9.4(H) <8.0 mg/L [facility] 06/08/2022 10:2 0 AM CDT 06/08/2022 10:21 AM CDT Eric Crowder MD LAB BLOOD ORDERABLES Fin al Result Performing Organization Address [facility] de Phone Number [facility] [address] [place] [address] * Erythrocyte sedimentation rate (06/08/2022 10:20 AM CDT) Erythrocyte sedimentation rate 9 < OR = 30 mm/h [facility] 06/08/2022 10:2 0 AM CDT 06/08/2022 10:21 AM CDT Eric Crowder MD LAB BLOOD ORDERABLES Fin al Result Performing Organization Address [facility] de Phone Number [facility] [address] [place] [address] * (ABNORMAL) Comprehensive metabolic panel (06/08/2022 10:20 AM CDT) Glucose 96 65 - 99 mg/dL [facility] Comment: ? Fasting reference interval BUN 14 7 - 25 mg/dL [facility] Creatinine 0.64 0.50 - 1.03 mg/dL [facility] eGFR 107 > OR = 60 mL/min/1. 73m2 [facility] Comment: The eGFR is based on the CKD-EPI 2020 equation. To calculate the new eGFR from a previous Creatinine or Cystatin C result, go to https://www.kidney.org/professionals/ kdoqi/gfr%5Fcalculator BUN/creat ratio NOT APPLICABLE 6 - 22 (calc) [facility] Sodium 138 135 - 146 mmol/L [facility] Potassium, pl 4.1 3.5 - 5.3 mmol/L [facility] Chloride 106 98 - 110 mmol/L [facility] CO2 29 20 - 32 mmol/L [facility] Calcium 9.2 8.6 - 10.4 mg/dL [facility] Protein, sr 6.5 6.1 - 8.1 g/dL [facility] Albumin 4.2 3.6 - 5.1 g/dL [facility] GLOBULIN 2.3 1.9 - 3.7 g/dL (calc) [facility] Alb/glob ratio 1.8 1.0 - 2.5 (calc) [facility] Bilirubin, total 0.4 0.2 - 1.2 mg/dL [facility] Alk phos 91 37 - 153 U/L [facility] AST 55(H) 10 - 35 U/L [facility] ALT (SGPT) 65(H) 6 - 29 U/L [facility] 06/08/2022 10:2 0 AM CDT 06/08/2022 10:21 AM CDT us Eric Crodwer MD LAB BLOOD ORDERABLES Fin al Result [facility] [address] [place] [address] * CBC with auto differential (06/08/2022 10:20 AM CDT) WBC 7.9 3.8 - 10.8 Thousand/u L [facility] RBC, POC 4.71 3.80 - 5.10 Million/uL [facility] Hgb 14.3 11.7 - 15.5 g/dL [facility] Hct 42.0 35.0 - 45.0 % [facility] MCV 89.2 80.0 - 100.0 fL [facility] MCH 30.4 27.0 - 33.0 pg [facility] MCHC 34.0 32.0 - 36.0 g/dL [facility] Rdw 13.5 11.0 - 15.0 % [facility] Platelets 230 140 - 400 Thousand/u L [facility] MPV 9.3 7.5 - 12.5 fL [facility] Neutrophils, abs 4,408 1,500 - 7,800 cells/uL [facility] Lymphocytes, abs 2,544 850 - 3,900 cells/uL [facility] Monocyte abs 695 200 - 950 cells/uL [facility] Eosinophils, abs 221 15 - 500 cells/uL [facility] Basophils, abs 32 0 - 200 cells/uL [facility] Neutrophils 55.8 % [facility] Lymphocyte pct 32.2 % [facility] Monocytes 8.8 % [facility] Eosinophils 2.8 % [facility] Basophils 0.4 % [facility] Blood 06/08/2022 10:2 0 AM CDT 06/08/2022 10:21 AM CDT us Eric Crowder MD LAB BLOOD ORDERABLES Fin al Result [facility] [address] [place] [address] * CBC with auto differential (02/25/2022 12:05 PM DIRECT MARKETING 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) WBC 6.1 3.8 - 10.8 Thousand/u L [facility] RBC, POC 4.58 3.80 - 5.10 Million/uL [facility] Hgb 13.8 11.7 - 15.5 g/dL [facility] Hct 41.1 35.0 - 45.0 % [facility] MCV 89.7 80.0 - 100.0 fL [facility] MCH 30.1 27.0 - 33.0 pg [facility] MCHC 33.6 32.0 - 36.0 g/dL [facility] Rdw 13.9 11.0 - 15.0 % [facility] Platelets 269 140 - 400 Thousand/u L [facility] MPV 9.5 7.5 - 12.5 fL [facility] Neutrophils, abs 3,105 1,500 - 7,800 cells/uL [facility] Lymphocytes, abs 2,129 850 - 3,900 cells/uL [facility] Monocyte abs 604 200 - 950 cells/uL [facility] Eosinophils, abs 244 15 - 500 cells/uL [facility] Basophils, abs 18 0 - 200 cells/uL [facility] Neutrophils 50.9 % [facility] Lymphocyte pct 34.9 % [facility] Monocytes 9.9 % [facility] Eosinophils 4.0 % [facility] Basophils 0.3 % [facility] 02/25/2022 12:0 5 PM DIRECT MARKETING 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 02/25/2022 12:06 PM DIRECT MARKETING 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 Narrative [facility] - 02/26/2022 2:54 PM DIRECT MARKETING 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 FASTING:NO FASTING: NO Eric Crowder MD LAB BLOOD ORDERABLES Fin al Result [facility] [address] [facility] [place] [address] * Erythrocyte sedimentation rate (02/25/2022 12:05 PM DIRECT MARKETING 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) Erythrocyte sedimentation rate 25 < OR = 30 mm/h [facility] 02/25/2022 12:0 5 PM DIRECT MARKETING 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 02/25/2022 12:06 PM DIRECT MARKETING 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 Narrative [facility] - 02/26/2022 2:54 PM DIRECT MARKETING 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 FASTING:NO FASTING: NO us Eric Crowder MD LAB BLOOD ORDERABLES Fin al Result [facility] [address] [place] [address] * (ABNORMAL) Comprehensive metabolic panel (02/25/2022 12:05 PM DIRECT MARKETING 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) Glucose 73 65 - 139 mg/dL [facility] Comment: ? Non-fasting reference interval BUN 11 7 - 25 mg/dL [facility] Creatinine 0.58 0.50 - 1.03 mg/dL [facility] eGFR 109 > OR = 60 mL/min/1. 73m2 [facility] Comment: The eGFR is based on the CKD-EPI 2020 equation. To calculate the new eGFR from a previous Creatinine or Cystatin C result, go to https://www.kidney.org/professionals/ kdoqi/gfr%5Fcalculator BUN/creat ratio NOT APPLICABLE 6 - 22 (calc) [facility] Sodium 143 135 - 146 mmol/L [facility] Potassium, pl 4.1 3.5 - 5.3 mmol/L [facility] Chloride 106 98 - 110 mmol/L [facility] CO2 30 20 - 32 mmol/L [facility] Calcium 10.0 8.6 - 10.4 mg/dL [facility] Protein, sr 6.5 6.1 - 8.1 g/dL [facility] Albumin 4.2 3.6 - 5.1 g/dL [facility] GLOBULIN 2.3 1.9 - 3.7 g/dL (calc) [facility] Alb/glob ratio 1.8 1.0 - 2.5 (calc) [facility] Bilirubin, total 0.3 0.2 - 1.2 mg/dL [facility] Alk phos 107 37 - 153 U/L [facility] AST 20 10 - 35 U/L [facility] ALT (SGPT) 41(H) 6 - 29 U/L [facility] 02/25/2022 12:0 5 PM DIRECT MARKETING 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 02/25/2022 12:06 PM DIRECT MARKETING 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 Narrative [facility] - 02/26/2022 2:54 PM DIRECT MARKETING 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 FASTING:NO FASTING: NO Eric Crowder MD LAB BLOOD ORDERABLES Fin al Result Performing Organization Address [facility] Co de Phone Number [facility] [address] [place] [address] * CRP (acute phase) (02/25/2022 12:05 PM DIRECT MARKETING 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) C-RP 7.7 <8.0 mg/L [facility] Blood 02/25/2022 12:0 5 PM DIRECT MARKETING 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 02/25/2022 12:06 PM DIRECT MARKETING 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 Narrative [facility] - 02/26/2022 2:54 PM DIRECT MARKETING 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 FASTING:NO FASTING: NO Eric Crowder MD LAB BLOOD ORDERABLES Fin al Result Performing Organization Address [facility] de Phone Number [facility] [address] [place] [address] * (ABNORMAL) CRP (acute phase) (11/26/2021 11:54 AM CDT) C-RP 22.2(H) <8.0 mg/L [facility] Blood 11/26/2021 11:5 4 AM CDT 11/26/2021 11:56 AM CDT Eric Crowder MD LAB BLOOD ORDERABLES Fin al Result Performing Organization Address [facility] Co de Phone Number [facility] [address] [place] [address] * Erythrocyte sedimentation rate (11/26/2021 11:54 AM CDT) Erythrocyte sedimentation rate 28 < OR = 30 mm/h [facility] Blood 11/26/2021 11:5 4 AM CDT 11/26/2021 11:56 AM CDT us Eric Crowder MD LAB BLOOD ORDERABLES Fin al Result [facility] [address] [place] [address] * CBC with auto differential (11/26/2021 11:54 AM CDT) WBC 5.7 3.8 - 10.8 Thousand/u L [facility] RBC, POC 4.67 3.80 - 5.10 Million/uL [facility] Hgb 13.9 11.7 - 15.5 g/dL [facility] Hct 40.2 35.0 - 45.0 % [facility] MCV 86.1 80.0 - 100.0 fL [facility] MCH 29.8 27.0 - 33.0 pg [facility] MCHC 34.6 32.0 - 36.0 g/dL [facility] Rdw 14.1 11.0 - 15.0 % [facility] Platelets 225 140 - 400 Thousand/u L [facility] MPV 9.4 7.5 - 12.5 fL [facility] Neutrophils, abs 2,890 1,500 - 7,800 cells/uL [facility] Lymphocytes, abs 1,995 850 - 3,900 cells/uL [facility] Monocyte abs 587 200 - 950 cells/uL [facility] Eosinophils, abs 211 15 - 500 cells/uL [facility] Basophils, abs 17 0 - 200 cells/uL [facility] Neutrophils 50.7 % [facility] Lymphocyte pct 35.0 % [facility] Monocytes 10.3 % [facility] Eosinophils 3.7 % [facility] Basophils 0.3 % [facility] Blood 11/26/2021 11:5 4 AM CDT 11/26/2021 11:56 AM CDT us Eric Crowder MD LAB BLOOD ORDERABLES Fin al Result [facility] [address] [place] [address] * (ABNORMAL) Comprehensive metabolic panel (11/26/2021 11:54 AM CDT) Glucose 73 65 - 99 mg/dL [facility] Comment: ? Fasting reference interval BUN 12 7 - 25 mg/dL [facility] Creatinine 0.67 0.50 - 1.03 mg/dL [facility] eGFR 106 > OR = 60 mL/min/1. 73m2 [facility] Comment: The eGFR is based on the CKD-EPI 2020 equation. To calculate the new eGFR from a previous Creatinine or Cystatin C result, go to https://www.kidney.org/professionals/ kdoqi/gfr%5Fcalculator BUN/creat ratio NOT APPLICABLE 6 - 22 (calc) [facility] Sodium 142 135 - 146 mmol/L [facility] Potassium, pl 3.8 3.5 - 5.3 mmol/L [facility] Chloride 106 98 - 110 mmol/L [facility] CO2 31 20 - 32 mmol/L [facility] Calcium 9.7 8.6 - 10.4 mg/dL [facility] Protein, sr 7.1 6.1 - 8.1 g/dL [facility] Albumin 4.4 3.6 - 5.1 g/dL [facility] GLOBULIN 2.7 1.9 - 3.7 g/dL (calc) [facility] Alb/glob ratio 1.6 1.0 - 2.5 (calc) [facility] Bilirubin, total 0.7 0.2 - 1.2 mg/dL [facility] Alk phos 77 37 - 153 U/L [facility] AST 24 10 - 35 U/L [facility] ALT (SGPT) 38(H) 6 - 29 U/L [facility] Blood 11/26/2021 11:5 4 AM CDT 11/26/2021 11:56 AM CDT Eric Crowder MD LAB BLOOD ORDERABLES Fin al Result [facility] [address] [place] [address] documented in this encounter Visit Diagnoses Diagnosis 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
--- OUTSIDE RECORDS SUMMARY | 2024-04-01 11:18 | XMS_ITS | Encounter Summary ---
Author Organization [facility] Address [address] [place] [address] Phone Care Team Providers Care Client Services Associate Name Role Phone Kevin Bowles MD Primary Care Provider [phone] Eric Crowder MD Unavailable [phone] Reason for Visit * Reason Onset Date Comments Recommendations: Colonoscopy 10/13/2021 Encounter Details Date Type Department Care Team (Late st Contact Info) Description 10/13/2021 [address]ation 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 Letter, pathology and procedure routed to PCP. Reminder sent Open Access for repeat Colonoscopy due 09/2031, set for a month prior. Bill Goodman MD Thomas, Susanne Denise, CMA Two benign polyps. Repeat screening colonoscopy in 10 years (2031). documented in this encounter Plan of Treatment Not on file documented as of this encounter Visit Diagnoses Not on filedocumented in this encounter Care Teams Client Services Associate Relationship Specialty Start Date End Date Kevin Bowles MD [facility] [address] PCP - General 06/19/16 01/16/24 Eric Crowder MD [address] [address] Rheumatology 01/18/17 documented as of this encounter
--- OUTSIDE RECORDS SUMMARY | 2024-04-01 11:18 | XMS_ITS | Encounter Summary ---
Author Organization [facility] Address [address] [place] [address] Care Team Providers Care Management Trainee Marketing Name Role Phone Kevin Bowles MD Primary Care Provider [phone] Eric Crowder MD Unavailable [phone] Encounter Details Date Type Department Care Team (Late st Contact Info) Description 08/20/[address] 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 Gender Identity Not on file Sexual Orientation Not on file documented as of this encounter Miscellaneous Notes * Telephone Encounter - Mae Costa - 08/20/2021 12:12 PM CDT Request sent to referring Physician for med list, office notes, recent labs documented in this encounter Plan of Treatment Not on file documented as of this encounter Visit Diagnoses Not on filedocumented in this encounter Care Teams Management Trainee Marketing Relationship Specialty Start Date End Date Kevin Bowles MD [address] [facility] [place] [address] PCP - General 06/19/16 01/16/24 Eric Crowder MD [address] [facility] [address] [place] [address] Rheumatology 01/18/17 documented as of this encounter
--- OUTSIDE RECORDS SUMMARY | 2024-04-01 11:18 | XMS_ITS | Encounter Summary ---
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 Order mailed to pt. * Telephone Encounter - Christa Bueno PA - 09/01/2022 10:17 AM CDT Order placed for esr, crp, cmp, and cbc. * Telephone Encounter - Chantel Ziegler - 09/01/2022 9:13 AM CDT Pt has appt to see you on 09/18/22 & wants you to place lab orders so you can have the results when she comes in. States she has only been on the Leflunomide for about 3 weeks as she did not startit right away. documented in this encounter Plan of Treatment Not on file documented as of this encounter Visit Diagnoses Not on filedocumented in this encounter Care Teams Valve Steamer Relationship Specialty Start Date End Date Kevin Bowles MD [address] [place] [address] [address] [place] [address] PCP - General 06/19/16 01/16/24 Eric Crowder MD [address] [facility] [address] [place] [address] Rheumatology 01/18/17 documented as of this encounter
--- OUTSIDE RECORDS SUMMARY | 2024-04-01 11:18 | XMS_ITS | Encounter Summary ---
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 Gender Identity Not on file Sexual Orientation Not on file documented as of this encounter Last Filed Vital Signs Vital Sign Reading Time Taken Comments Blood Pressure 138/70 12/01/2021 2:46 PM CDT Pulse 80 12/01/2021 2:46 PM CDT Temperature - - Respiratory Rate - - Oxygen Saturation 97% 12/01/2021 2:46 PM CDT Inhaled Oxygen Concentration - - Weight 122.7 kg (270 lb 6.4 oz) 12/01/2021 2:46 PM CDT Height 162.6 cm (5' 4 ) 12/01/2021 2:46 PM CDT Body Mass Index 46.41 12/01/2021 2:46 PM CDT documented in this encounter Ordered Prescriptions Prescription Sig Dispense Quantity Refills Last Filled Start Date End Date methotrexate 2.5 mg tabletIndications: Rheumatoid Arthritis Take 8 tablets (20 mg total) by mouth every 7 days 96 tablet 1 12/01/2021 3 ondansetron (ZOFRAN) 8 mg tablet Take 1 tablet (8 mg total) by mouth every 8 (eight) hours as needed for nausea or vomiting 12 tablet 1 12/01/2021 3 hydrOXYchloroQUINE (PLAQUENIL) 200 mg tabletIndications: Connective Tissue Disease,auto immune disease Take 1 tablet (200 mg total) by mouth 2 (two) times a day 180 tablet 1 12/01/2021 3 folic acid (FOLVITE) 1 mg tablet Take 1 tablet (1 mg total) by mouth daily Take one tab daily 90 tablet 1 12/01/2021 3 documented in this encounter Progress Notes * Christa Bueno PA - 12/01/2021 2:45 PM CDT Images from the original note were not included. Subjective/Objective Patient ID: Monica Buckner is a 51 y.o. female. Chief Complaint Joint pain HPI Returns for routine follow up. Notes recent ear infection and is on abx currently. Joints have remained stable. Did fall stepping on a dog toy and had some pain for several days following this. Has been losing weight through diet/exercise. [facility] will not approve referral to a plater production. Denies fevers, infections, rashes, mouth sores, cough, dyspnea, n/v. Joint pain today is 3 /10. AM stiffness = few hours Review of Systems Constitutional: Positive for fatigue. Negative for chills and fever. HENT: Negative for congestion and mouth sores. Respiratory: Negative for cough and shortness of breath. Cardiovascular: Negative for chest pain. Gastrointestinal: Negative for abdominal pain, diarrhea, nausea and vomiting. Musculoskeletal: Positive for arthralgias. Negative for myalgias. Skin: Negative for rash. Vitals: Vitals BP 138/70 Pulse 80 Ht 162.6 cm (5' 4 ) Wt 122.7 kg (270 lb 6.4 oz) LMP (LMP Unknown) SpO2 97% BMI 46.41 kg/m?? Body mass index is 46.41 kg/m??. Bold X is a current medication. Medication Taking/taken D/C or avoidance reason Hydroxychloroquine X Methotrexate -started 09/02/2017 X Leflunomide Azathioprine Sulfasalazine x Inconsistent dosing so was [...] Labs Lab Results Component Value Date WBC 5.7 11/26/2021 HGB 13.9 11/26/2021 HCT 40.2 11/26/2021 MCV 86.1 11/26/2021 Lab Results Component Value Date GLUCOSE 73 11/26/2021 CALCIUM 9.7 11/26/2021 SODIUM 142 11/26/2021 POTASSIUM 3.8 11/26/2021 CO2 31 11/26/2021 CHLORIDE 106 11/26/2021 BUNSER 12 11/26/2021 CREATININE 0.67 11/26/2021 Lab Results Component Value Date ALT 38 (H) 11/26/2021 AST 24 11/26/2021 ALKPHOS 77 11/26/2021 BILITOT 0.7 11/26/2021 Lab Results Component Value Date SEDRATE 28 11/26/2021 Lab Results Component Value Date CRP 22.2 (H) 11/26/2021 US right hand/wrist (06/02/17): Moderate synovitis with [...] wrist but overall little change. Patient Global: 30 mm Provider Global: 30 mm CDAI: 9 In remission: 0-3 Low: 4-10 Moderate: 11-22 High: 23 or > Assessment/Plan Diagnoses and all orders for this visit: 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/HCC) ([facility]) (Primary) Assessment & Plan: Low cdai. Repeat hand US revealed little [...] every 3 months via standing order. Follow upin 6 months. Sooner if needed. 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 Other orders - folic acid (FOLVITE) 1 mg tablet; Take 1 tablet (1 mg total) by mouth daily Take one tab daily - hydrOXYchloroQUINE (PLAQUENIL) 200 mg tablet; Take 1 tablet (200 mg total) by mouth 2 (two) timesa day - ondansetron (ZOFRAN) 8 mg tablet; Take 1 tablet (8 mg total) by mouth every 8 (eight) hours as needed for nausea or vomiting - methotrexate 2.5 mg tablet; Take 8 tablets (20 mg total) by mouth every 7 days Christa Bueno PA-C Cosigned by Eric Crowder MD at 12/01/2021 4:45 PM CDT documented in this encounter Miscellaneous Notes * Assessment & Plan Note - Christa Bueno PA - 12/01/2021 3:51 PM CDT Associated Problem(s): 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/HCC) (HCC) Low cdai. Repeat hand US revealed little [...] every 3 months via standing order. Follow upin 6 months. Sooner if needed. 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 documented in this encounter Discontinued Medications Medication Sig Discontinue Reason Start Date End Da te folic acid (FOLVITE) 1 mg tablet Take 1 tablet (1 mg total) by mouth daily Take one tab daily Reorder 08/28/2021 12/01/2021 hydrOXYchloroQUINE (PLAQUENIL) 200 mg tabletIndications:Conne ctive Tissue Disease,auto immune disease Take 1 tablet (200 mg total) by mouth 2 (two) times a day Reorder 08/28/2021 12/01/2021 methotrexate 2.5 mg tabletIndications:Rheum atoid Arthritis Take 8 tablets (20 mg total) by mouth every 7 days Reorder 08/28/2021 12/01/2021 ondansetron (ZOFRAN) 8 mg tablet Take 1 tablet (8 mg total) by mouth every 8 (eight) hours as needed for nausea or vomiting Reorder 08/28/2021 12/01/2021 documented as of this encounter Care Teams Educational Assistant Teacher Relationship Specialty Start Date End Date Kevin Bowles MD [facility] [address] [place] [address] PCP - General 06/19/16 01/16/24 Eric Crowder MD [address] [facility] [address] [place] [address] Rheumatology 01/18/17 documented as of this encounter
--- OUTSIDE RECORDS SUMMARY | 2024-04-01 11:18 | XMS_ITS | Encounter Summary ---
Author Organization [facility] Healthcare Address [address] [place] [address] Care Team Providers Care Certified Drug Counselor Name Role Phone Kevin Bowles MD Primary Care Provider [phone] Eric Crowder MD Unavailable [phone] Reason for Referral * Diagnostic Imaging (Routine) - Closed Specialty Diagnoses / Procedures Referred By Contac t Referred To Contact Diagnoses Screening mammogram, encounter for Procedures Screening Mammogram Bilateral W Felipe Screening Mammogram, Self [facility] [address] [place] [address] Referral ID Status Reason Start Date Expiration Date Visits Re quested Visits Authorized [id number] Closed 09/17/2021 10/17/2022 1 1 * Diagnostic Imaging (Routine) - Closed Specialty Diagnoses / Procedures Referred By Contac t Referred To Contact Diagnoses Screening mammogram, encounter for Procedures Screening Mammogram Bilateral W Felipe Screening Mammogram, Self [facility] [address] [place] [address] Referral ID Status Reason Start Date Expiration Date Visits Re quested Visits Authorized [id number] Closed 09/17/2021 10/17/2022 1 1 Reason for Visit * Diagnostic Imaging (Routine) - Closed Specialty Diagnoses / Procedures Referred By Contac t Referred To Contact Diagnoses Screening mammogram, encounter for Procedures Screening Mammogram Bilateral W Felipe Screening Mammogram, Self [facility] [address] [place] [address] Referral ID Status Reason Start Date Expiration Date Visits Re quested Visits Authorized [id number] Closed 09/17/2021 10/17/2022 1 1 Encounter Details Date Type Department Care Team (Latest Contact Info) Description 09/26/2021 3:44 PM CDT - 09/26/2021 11:59 PM CDT Hospital Encounter 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 10/08/21 at 08:15 AM drink 1/2 jug of Nulytely over two hours till finished. 4000 mL 09/15/2021 10/08/2021 predniSONE (DELTASONE) 20 mg tablet Take three [...] FELIPE Schedule Routine, Read Routine (OP Routine) 09/26/2021 4:22 PM CDT Screening mammogram, encounter for documented in this encounter Results * Screening Mammogram Bilateral W Felipe (09/26/2021 4:22 PM CDT) Anatomical Region Laterality Modality Breast Bilateral Mammography Narrative 09/29/2021 7:49 AM CDT Examination: Screening Mammogram Bilateral W Felipe: 09/26/21 Clinical: Screening mammogram, encounter for. ?? Prior Study Comparisons: Comparison was made to [...] by letter. Impression: BI-RADS?? ATLAS category (overall): 1 - Negative ?? There is no mammographic evidence of malignancy. Routine Screening Mammogram in 1 Yr is recommended for bilateral Overall Assessment: 1 - Negative us Self Screening Mammogram IMG MAMMO PROCEDURES Fi nal Result documented in this encounter Visit Diagnoses Diagnosis Screening mammogram, encounter for documented in this encounter Care Teams Certified Drug Counselor Relationship Specialty Start Date End Date Kevin Bowles MD [address] [facility] [address] [place] [address] PCP - General 06/19/16 01/16/24 Eric Crowder MD [address] [facility] [address] [place] [address] Rheumatology 01/18/17 documented as of this encounter
--- OUTSIDE RECORDS SUMMARY | 2024-04-01 11:18 | XMS_ITS | Encounter Summary ---
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 Social History [...] on file 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 Gender Identity Not on file Sexual Orientation Not on file documented as of this encounter Plan of Treatment Not on file documented as of this encounter Procedures Procedure Name Priority Date/Time Associated Diagnosis Comments CBC WITH AUTO DIFFERENTIAL Routine 09/14/2022 12:02 PM CDT 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/HCC) (HCC) remote computer terminal 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 ERYTHROCYTE SEDIMENTATION RATE Routine 09/14/2022 12:02 PM CDT 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/HCC) (HCC) skilled nursing current use 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 CRP (ACUTE PHASE) Routine 09/14/2022 12: 02 PM CDT 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/HCC) (HCC) skilled nursing current use 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 COMPREHENSIVE METABOLIC PANEL Routine 09/14/2022 12:02 PM CDT 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/HCC) (HCC) skilled nursing current use 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 documented in this encounter Results * (ABNORMAL) CRP (acute phase) (09/14/2022 12:02 PM CDT) C-RP 8.0(H) <8.0 mg/L [facility] Blood 09/14/2022 12:0 2 PM CDT 09/14/2022 12:04 PM CDT Christa JAY LAB BLOOD ORDERABLES Final Result Performing Organization Address City/[facility]/ZIP Co de Phone Number [facility] [address] [place] [address] * Erythrocyte sedimentation rate (09/14/2022 12:02 PM CDT) Pathologist [facility] Erythrocyte sedimentation rate 11 < OR = 30 mm/h [facility] Blood 09/14/2022 12:0 2 PM CDT 09/14/2022 12:04 PM CDT Christa JAY LAB BLOOD ORDERABLES Final Result [facility] [address] [place] [address] * CBC with auto differential (09/14/2022 12:02 PM CDT) Pathologist [facility] WBC 4.7 3.8 - 10.8 Thousand/u L [facility] RBC, POC 4.54 3.80 - 5.10 Million/uL [facility] Hgb 13.8 11.7 - 15.5 g/dL [facility] Hct 40.8 35.0 - 45.0 % [facility] MCV 89.9 80.0 - 100.0 fL [facility] MCH 30.4 27.0 - 33.0 pg [facility] MCHC 33.8 32.0 - 36.0 g/dL [facility] Rdw 13.1 11.0 - 15.0 % [facility] Platelets 192 140 - 400 Thousand/u L [facility] MPV 9.9 7.5 - 12.5 fL [facility] Neutrophils, abs 2,167 1,500 - 7,800 cells/uL [facility] Lymphocytes, abs 1,730 850 - 3,900 cells/uL [facility] Monocyte abs 616 200 - 950 cells/uL [facility] Eosinophils, abs 160 15 - 500 cells/uL [facility] Basophils, abs 28 0 - 200 cells/uL [facility] Neutrophils 46.1 % [facility] Lymphocyte pct 36.8 % [facility] Monocytes 13.1 % [facility] Eosinophils 3.4 % [facility] Basophils 0.6 % [facility] Blood 09/14/2022 12:0 2 PM CDT 09/14/2022 12:04 PM CDT us Christa JAY LAB BLOOD ORDERABLES Final Result [facility] [address] [phone] * (ABNORMAL) Comprehensive metabolic panel (09/14/2022 12:02 PM CDT) [facility] Glucose 103(H) 65 - 99 mg/dL [facility] Comment: ? Fasting reference interval For someone without known diabetes, a glucose value between 100 and 125 mg/dL is consistent with prediabetes and should be confirmed with a follow-up test. BUN 12 7 - 25 mg/dL [facility] Creatinine 0.69 0.50 - 1.03 mg/dL [facility] eGFR 104 > OR = 60 mL/min/1. 73m2 [facility] Comment: The eGFR is based on the CKD-EPI 2020 equation. To calculate the new eGFR from a previous Creatinine or Cystatin C result, go to https://www.kidney.org/professionals/ kdoqi/gfr%5Fcalculator BUN/creat ratio NOT APPLICABLE 6 - 22 (calc) [facility] Sodium 139 135 - 146 mmol/L [facility] Potassium, pl 4.1 3.5 - 5.3 mmol/L [facility] Chloride 106 98 - 110 mmol/L [facility] CO2 29 20 - 32 mmol/L [facility] Calcium 9.3 8.6 - 10.4 mg/dL [facility] Protein, sr 6.8 6.1 - 8.1 g/dL [facility] Albumin 4.2 3.6 - 5.1 g/dL [facility] GLOBULIN 2.6 1.9 - 3.7 g/dL (calc) [facility] Alb/glob ratio 1.6 1.0 - 2.5 (calc) [facility] Bilirubin, total 0.6 0.2 - 1.2 mg/dL [facility] Alk phos 77 37 - 153 U/L [facility] AST 22 10 - 35 U/L [facility] ALT (SGPT) 26 6 - 29 U/L [facility] Blood 09/14/2022 12:0 2 PM CDT 09/14/2022 12:04 PM CDT Christa JAY LAB BLOOD ORDERABLES Final Result [facility] [address] [id number] documented in this encounter Visit Diagnoses Diagnosis 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 Unspecified inflammatory polyarthropathy remote computer terminal 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
--- OUTSIDE RECORDS SUMMARY | 2024-04-01 11:18 | XMS_ITS | Encounter Summary ---
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 [address] [place] [address] Rheumatology 01/18/17 documented as of this encounter
--- OUTSIDE RECORDS SUMMARY | 2024-04-01 11:18 | XMS_ITS | Encounter Summary ---
Author Organization [facility] Healthcare Address [address] [place] [address] Care Team Providers Care Palm And Back Forger Name Role Phone Kevin Bowles MD Primary Care Provider [phone] Eric Crowder MD Unavailable [phone] Reason for Visit * Reason Onset Date Comments GI Preprocedure 09/03/2021 Encounter Details Date Type Department Care Team (Late st Contact Info) Description 09/03/2021 Telephone [facility] Specialty Services [address] [place] [phone] Betzy Dixon RN GI Preprocedure Social History Tobacco Use Types Packs/Day Years Used Date Smoking Tobacco: Never Alcohol Use Standard Drinks/Week Comments Yes 0 (1 standard drink = 0.6 oz pur e alcohol) Comments Unknown Sex and Gender Information Value Date Recorded Sex Assigned at Not on file 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 10/08/21 at 08:15 AM drink 1/2 jug of Nulytely over two hours till finished. 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 My name and phone number left with patient. Betzy Dixon RN 09/08/21 Called and LVM for patient to call back about bowel prep. Betzy Dixon RN 09/15/21 Called and spoke with patient. Reviewed water tanker driver, anesthesia, clear liquids, date, times and bowel habits. Patient usually has 1 to 2 bowel movements most days. Sometimes according to her diet she may need to take Senna S. Patient will take Senna S on 10/06/21 and we decided on Nulytely bowel prep. Patient has a Pharmacy degree and doesn't eat meat. We discussed low residue diet and she saysher bowel responds differently to beans, fruits and raw vegetables. 09/15/21 Mailed instructions and escribed to [facility] on file in [place]. Betzy Dixon RN 09/12/21 Called and LVM for patient to call back and discuss bowel prep, Betzy Dixon RN 09/10/21 Called and LVM for patient to call back and discuss bowel prep. Betzy Dixon RN * Telephone Encounter - Soheila Mcbride RN - 09/04/2021 10:32 AM CDT Left message #[phone] for Monica to call to schedule colonoscopy * Telephone Encounter - Betzy Dixon RN - 09/03/2021 1:09 PM CDT PROCEDURE Type: colon Indication: screening Referring Physician: Patrice Bowles Date Referred: CLINICAL ASSESSMENT []COVID Screening questions [] Covid vaccination yes []BMI>45, Weight >350 lbs (if yes, note restrictions below) BMI Readings from Last 1 Encounters: 08/28/21 49.68 kg/m?? Wt Readings from Last 1 Encounters: 08/28/21 131.3 kg (289 lb 6.4 oz) [] Patient had GI procedure/CPAP clinic/GI clinic <30 days (if Yes, no medical screening questions needed unless new clinical issues in last 30 days) Medical screening questions: BMI/Weight: NA Inflammatory Arthritis Thyroiditis/ Sjorgens Disease CARDIOVASCULAR: None RESPIRATORY/LUNG: None RENAL/LIVER/GI: None BLEEDING/CLOTTING: None NEUROLOGICAL: None ENDOCRINE: None PRIOR PROCEDURE ISSUES: None CUSTODIAN ATHLETIC EQUIPMENT/: NA Heavy periods IMPLANTS.: None Notes: DIABETIC MEDS Y/N: No/NA []Yes- Discuss diabetes medication management with prescribing physician DIALYSIS Y/N: No/NA []HD- Schedule on non-HD day, see protocol []PD- Drain PD fluid AM of procedure, if colonoscopy order AB ppx, see protocol PACEMAKER/ICD Y/N: No/NA Device info: Last documented device check: Any shocks since last cards visit (if yes must see cardiology for procedure clearance): BLOOD THINNERS/ANTICOAG/ANTIPLATELET (BESIDES ASA) Medication: NONE Physician contacted for hold order/date sent: Hold order Method sent: Epic Fax Date hold received: Hold instructions: CONTINUE ASPIRIN INFORMATION REQUESTED []Imaging: []Medical Progress Note/H&P []Medication list []Other: PATIENT OPTIMIZATION []Physician reviewing escalation: []CPAP: Date scheduled: Outcome : [] Location limitations: Scheduling Scheduling location limitations: no silvia Applications Programmer Analyst needed [x] NA Language: Danish POA [x] NA Name: SPECIAL PROCEDURE INSTRUCTIONS 09/03/21 Reviewed referral. Scheduling Notes documented in this encounter Plan of Treatment Not on file documented as of this encounter Visit Diagnoses Not on filedocumented in this encounter Care Teams Palm And Back Forger Relationship Specialty Start Date End Date Kevin Bowles MD [facility] [facility] [address] [place] [address] PCP - General 06/19/16 01/16/24 Eric Crowder MD [address] [facility] [address] [place] [address] Rheumatology 01/18/17 documented as of this encounter
--- OUTSIDE RECORDS SUMMARY | 2024-04-01 11:18 | XMS_ITS | Encounter Summary ---
Author Organization [facility] Address [address] [place] [address] Phone Care Team Providers Care Front End Software Developer Name Role Phone Kevin Bowles MD Primary Care Provider [phone] Eric Crowder MD Unavailable [phone] Encounter Details Date Type Department Care Team (Late st Contact Info) Description 05/30/2021 Telephone [facility] [address] [place] [address] Chantel Ziegler Social History Tobacco Use Types Packs/Day Years Used Date Smoking Tobacco: Never Alcohol Use Standard Drinks/Week Comments Yes 0 (1 standard drink = 0.6 oz pur e alcohol) Comments Unknown Sex and Gender Information Value Date Recorded Sex Assigned at Not on file 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 DESIGNER * Telephone Encounter - Christa Bueno PA - 05/30/2021 12:40 PM BODY DESIGNER Rx sent. DESIGNER * Telephone Encounter - Chantel Ziegler - 05/30/2021 12:24 PM CST Pt left vm stating you didn't send the Zofran to her pharmacy.. Wants script sent to [facility] in [place]. DESIGNER documented in this encounter Plan of Treatment Not on file documented as of this encounter Visit Diagnoses Not on filedocumented in this encounter Care Teams Front End Software Developer Relationship Specialty Start Date End Date Kevin Bowles MD [facility] [facility] [address] [place] [address] PCP - General 06/19/16 01/16/24 Eric Crowder MD [address] [facility] [address] [place] [address] Rheumatology 01/18/17 documented as of this encounter
--- OUTSIDE RECORDS SUMMARY | 2024-04-01 11:18 | XMS_ITS | Encounter Summary ---
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 Gender Identity Not on file Sexual Orientation Not on file documented as of this encounter Last Filed Vital Signs Vital Sign Reading Time Taken Comments Blood Pressure 120/68 09/18/2022 1:13 PM CDT Pulse 83 09/18/2022 1:13 PM CDT Temperature - - Respiratory Rate - - Oxygen Saturation 96% 09/18/2022 1:13 PM CDT Inhaled Oxygen Concentration - - Weight 125.2 kg (276 lb) 09/18/2022 1:13 PM CDT Height - - Body Mass Index 47.38 06/12/2022 10:06 AM CDT documented in this encounter Ordered Prescriptions Prescription Sig Dispense Quantity Refills Last Filled Start Date End Date hydrOXYchloroQUINE (PLAQUENIL) 200 mg tabletIndications: Connective Tissue Disease,auto immune disease Take 1 tablet (200 mg total) by mouth 2 (two) times a day 180 tablet 09/18/2022 12/14/2022 leflunomide (ARAVA) 20 mg tabletIndications: Rheumatoid Arthritis Take 1 tablet (20 mg total) by mouth daily 90 tablet 09/18/2022 12/14/2022 documented in this encounter Progress Notes * Christa Bueno PA - 09/18/2022 1:30 PM CDT Images from the original note were not included. Subjective/Objective Patient ID: Monica Buckner is a 52 y.o. female. Chief Complaint uCTD HPI Returns for routine follow up. Has noticed dizziness the past 3-4 weeks. Notes it occurs when she looks up. Feels like the room isspinning. Fell on the right knee and buttock so has been having some residual pain since the fall and using a cane to ambulate. Denies sinus or ear infection. Seeing ENT next week at her PCP office to further assess and also discuss chronic sinusitis. Hand pain/swelling improved with leflunomide. Denies s/e. Denies fevers, infections, rashes, mouth sores, cough, dyspnea, n/v. Joint pain today is 2 /10. AM stiffness = few minutes Review of Systems Constitutional: Positive for fatigue and dizziness. Negative for chills and fever. HENT: Positive for congestion. Negative for mouth sores. Respiratory: Negative for cough and shortness of breath. Cardiovascular: Negative for chest pain. Gastrointestinal: Negative for abdominal pain, diarrhea, nausea and vomiting. Musculoskeletal: Positive for arthralgias. Negative for myalgias. Skin: Negative for rash. Vitals: Vitals BP 120/68 Pulse 83 Wt 125.2 kg (276 lb) LMP (LMP Unknown) SpO2 96% BMI 47.38 kg/m?? Body mass index is 47.38 kg/m??. Bold X is a current medication. [...] and round. Pulmonary/Chest: Effort normal. Musculoskeletal: See cdai Neurological: alert and oriented to person, place, and time. Skin: Skin is warm and dry. No rash noted. Psychiatric: normal mood and affect. speech is normal and behavior is normal. Cognition and memory are normal. Patient Global: 20 mm Provider Global: 20 mm CDAI: 6 In remission: 0-3 Low: 4-10 Moderate: 11-22 High: 23 or > Labs Lab Results Component Value Date WBC 4.7 09/14/2022 HGB 13.8 09/14/2022 HCT 40.8 09/14/2022 MCV 89.9 09/14/2022 Lab Results Component Value Date GLUCOSE 103 (H) 09/14/2022 CALCIUM 9.3 09/14/2022 SODIUM 139 09/14/2022 POTASSIUM 4.1 09/14/2022 CO2 29 09/14/2022 CHLORIDE 106 09/14/2022 BUNSER 12 09/14/2022 CREATININE 0.69 09/14/2022 Lab Results Component Value Date ALT 26 09/14/2022 AST 22 09/14/2022 ALKPHOS 77 09/14/2022 BILITOT 0.6 09/14/2022 Lab Results Component Value Date SEDRATE 11 09/14/2022 Lab Results Component Value Date CRP 8.0 (H) 09/14/2022 US right hand/wrist (06/02/17): Moderate synovitis with [...] arthritis (CMS/HCC) (HCC) (Primary) Assessment & Plan: Low cdai. Switched to leflunomide after last [...] months via standing order. Follow up at nextscheduled visit. Sooner if needed. Orders: - Comprehensive metabolic panel; Future - CBC with auto differential; Future - Erythrocyte sedimentation rate; Future - CRP (acute phase); Future shelter current use 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 Assessment & Plan: Routine labs via standing order. 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 * Assessment & Plan Note - Christa Bueno PA - 09/18/2022 1:59 PM CDT Associated Problem(s): 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/HCC) (HCC) Low cdai. Switched to leflunomide after last [...] months via standing order. Follow up at nextscheduled visit. Sooner if needed. documented in this encounter Plan of Treatment Not on file documented as of this encounter Procedures Procedure Name Priority Date/Time Associated Diagnosis Comments CELIAC DISEASE COMPREHENSIVE PANEL Routine 12/08/2022 10:29 AM CDT CBC WITH AUTO DIFFERENTIAL Routine 12/08/2022 10:27 AM CDT 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/HCC) (HCC) intermediate project manager current use 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 ERYTHROCYTE SEDIMENTATION RATE Routine 12/08/2022 10:27 AM CDT 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/HCC) (HCC) intermediate project manager current use 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 CRP (ACUTE PHASE) Routine 12/08/2022 10: 27 AM CDT 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/HCC) (HCC) shelter current use 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 COMPREHENSIVE METABOLIC PANEL Routine 12/08/2022 10:27 AM CDT 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/HCC) (HCC) shelter current use 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 documented in this encounter Results * Celiac Disease Comprehensive Panel (12/08/2022 10:29 AM CDT) Celiac interpretation [email or web address] Comment: No serological evidence of celiac disease. tTG IgA may normalize in individuals with celiac disease who maintain a gluten-free diet. Consider HLA DQ2 and DQ8 testing to rule out celiac disease. Celiac disease is extremely rare in the absence of DQ2 or DQ8. Tissue transglutaminase ab, IgA <1.0 U/mL [email or web address] Comment: Value ?Interpretation ----- ? <15.0 ?Antibody not detected > or = 15.0 ?Antibody detected Immunoglobulin A 112 47 - 310 mg/dL [email or web address] 12/08/2022 10:2 9 AM CDT 12/08/2022 10:30 AM CDT us Eric Crowder MD LAB BLOOD ORDERABLES Fin al Result [facility] [employer] Evan Galdamez [address] [facility] [place] [address] * CRP (acute phase) (12/08/2022 10:27 AM CDT) C-RP 5.1 <8.0 mg/L [facility] [employer] Blood 12/08/2022 10:2 7 AM CDT 12/08/2022 10:27 AM CDT Christa JAY LAB BLOOD ORDERABLES Final Result Performing Organization Address [facility] Co de Phone Number [facility] [address] [place] [address] * Erythrocyte sedimentation rate (12/08/2022 10:27 AM CDT) [facility] Erythrocyte sedimentation rate 6 < OR = 30 mm/h [facility] Blood 12/08/2022 10:2 7 AM CDT 12/08/2022 10:27 AM CDT Christa Nelia JAY LAB BLOOD ORDERABLES Final Result Performing Organization Address [facility] de Phone Number [facility] [address] [place] [address] * CBC with auto differential (12/08/2022 10:27 AM CDT) [facility] WBC 4.4 3.8 - 10.8 Thousand/u L [facility] RBC, POC 4.76 3.80 - 5.10 Million/uL [facility] Hgb 14.5 11.7 - 15.5 g/dL [facility] Hct 42.8 35.0 - 45.0 % [facility] MCV 89.9 80.0 - 100.0 fL [facility] MCH 30.5 27.0 - 33.0 pg [facility] MCHC 33.9 32.0 - 36.0 g/dL [facility] Rdw 13.1 11.0 - 15.0 % [facility] Platelets 193 140 - 400 Thousand/u L [facility] MPV 9.6 7.5 - 12.5 fL [facility] Neutrophils, abs 2,086 1,500 - 7,800 cells/uL [facility] Lymphocytes, abs 1,509 850 - 3,900 cells/uL [facility] Monocyte abs 458 200 - 950 cells/uL [facility] Eosinophils, abs 326 15 - 500 cells/uL [facility] Basophils, abs 22 0 - 200 cells/uL [facility] Neutrophils 47.4 % [facility] Lymphocyte pct 34.3 % [facility] Monocytes 10.4 % [facility] Eosinophils 7.4 % [facility] Basophils 0.5 % [facility] Blood 12/08/2022 10:2 7 AM CDT 12/08/2022 10:27 AM CDT us Christa JAY LAB BLOOD ORDERABLES Final Result [facility] [address] [address] [place] [address] * (ABNORMAL) Comprehensive metabolic panel (12/08/2022 10:27 AM CDT) Pathologist [facility] Glucose 105(H) 65 - 99 mg/dL [facility] Comment: ? Fasting reference interval For someone without known diabetes, a glucose value between 100 and 125 mg/dL is consistent with prediabetes and should be confirmed with a follow-up test. BUN 12 7 - 25 mg/dL [facility] Creatinine 0.76 0.50 - 1.03 mg/dL [facility] eGFR 94 > OR = 60 mL/min/1.7 3m2 [facility] BUN/creat ratio SEE NOTE: 6 - 22 (calc) [facility] Comment: ?? Not Reported: BUN and Creatinine are within ?? reference range. ? Sodium 140 135 - 146 mmol/L [facility] Potassium, pl 4.1 3.5 - 5.3 mmol/L [facility] Chloride 106 98 - 110 mmol/L [facility] CO2 27 20 - 32 mmol/L [facility] Calcium 9.3 8.6 - 10.4 mg/dL [facility] Protein, sr 7.0 6.1 - 8.1 g/dL [facility] Albumin 4.3 3.6 - 5.1 g/dL [facility] GLOBULIN 2.7 1.9 - 3.7 g/dL (calc) [facility] Alb/glob ratio 1.6 1.0 - 2.5 (calc) [facility] Bilirubin, total 0.5 0.2 - 1.2 mg/dL [facility] Alk phos 88 37 - 153 U/L [facility] AST 37(H) 10 - 35 U/L [facility] ALT (SGPT) 44(H) 6 - 29 U/L [facility] Blood 12/08/2022 10:2 7 AM CDT 12/08/2022 10:27 AM CDT Christa JAY LAB BLOOD ORDERABLES Final Result [facility] [address] [address] [address] documented in this encounter Visit Diagnoses Diagnosis 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 06/19/2022 09/18/2022 ondansetron (ZOFRAN) 8 mg tablet Take 1 tablet (8 mg total) by mouth every 8 (eight) hours as needed for nausea or vomiting 12/01/2021 09/18/2022 hydrOXYchloroQUINE (PLAQUENIL) 200 mg tabletIndications:Conne ctive Tissue Disease,auto immune disease Take 1 tablet (200 mg total) by mouth 2 (two) times a day Reorder 07/06/2022 09/18/2022 documented as of this encounter Care Teams Teachers Assistant Relationship Specialty Start Date End Date Kevin Bowles MD [facility] [facility] [address] [place] [address] PCP - General 06/19/16 01/16/24 Eric Crowder MD [address] [facility] [address] [place] [address] Rheumatology 01/18/17 documented as of this encounter
--- OUTSIDE RECORDS SUMMARY | 2024-04-01 11:18 | XMS_ITS | Encounter Summary ---
Author Organization [facility] Address [address] [place] [address] Phone Care Team Providers Care Paper Bag Maker Name Role Phone Kevin Bowles MD Primary Care Provider [phone] Eric Crowder MD Unavailable [phone] Reason for Visit * Reason Onset Date Comments Standing Lab Order Requested 11/25/2021 Encounter Details Date Type Department Care Team (Late st Contact Info) Description 11/25/2021 Telephone [facility] [address] [place] [address] Chantel Ziegler Standing Lab Order Requested Social History Tobacco Use Types Packs/Day Years [...] on file 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 * Telephone Encounter - Chantel Ziegler - 11/25/2021 2:14 PM CDT Pt informed lab orders added. * Telephone Encounter - Chantel Ziegler - 11/25/2021 1:46 PM CDT Pt has appt next week & wants to go to [facility] tomorrow so we have the lab results when she gets here. Would like a standing lab order placed so she can have them again in 3 months w/o having to call back. If okay, I can add them directly to the [facility] system. documented in this encounter Plan of Treatment Not on file documented as of this encounter Visit Diagnoses Not on filedocumented in this encounter Care Teams Paper Bag Maker Relationship Specialty Start Date End Date Kevin Bowles MD [facility] [address] [place] [address] PCP - General 06/19/16 01/16/24 Eric Crowder MD [address] [place] [address] Rheumatology 01/18/17 documented as of this encounter
--- OUTSIDE RECORDS SUMMARY | 2024-04-01 11:18 | XMS_ITS | Encounter Summary ---
Author Organization [facility] Address [address] [place] [address] Phone Care Team Providers Care Chief Development Officer Name Role Phone Kevin Bowles MD Primary Care Provider [phone] Eric Crowder MD Unavailable [phone] Encounter Details Date Type Department Care Team (Late st Contact Info) Description 06/06/2021 Telephone [facility] Orthopaedic Surgery Count includes the [facility] Advanced Medicine 6th [place] [address] [place] [address] Izabela Mohan RMA Social History Tobacco Use Types Packs/Day Years Used Date Smoking Tobacco: Never Alcohol Use Standard Drinks/Week Comments Yes 0 (1 standard drink = 0.6 oz pur e alcohol) Comments Unknown Sex and Gender Information Value Date Recorded Sex Assigned at Not on file 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 documented in this encounter Plan of Treatment Not on file documented as of this encounter Visit Diagnoses Not on filedocumented in this encounter Care Teams Chief Development Officer Relationship Specialty Start Date End Date Kevin Bowles MD [address] [facility] [address] [place] [address] PCP - General 06/19/16 01/16/24 Eric Crowder MD [address] [facility] [address] [place] [address] Rheumatology 01/18/17 documented as of this encounter
--- OUTSIDE RECORDS SUMMARY | 2024-04-01 11:18 | XMS_ITS | Encounter Summary ---
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 30 tablet 12/22/2021 3 documented in this encounter Plan of Treatment Not on file documented as of this encounter Visit Diagnoses Not on filedocumented in this encounter Care Teams Fermenter Champagne Relationship Specialty Start Date End Date Kevin Bowles MD [address] [facility] [address] [place] [address] PCP - General 06/19/16 01/16/24 Eric Crowder MD [address] [facility] [address] [place] [address] Rheumatology 01/18/17 documented as of this encounter
--- OUTSIDE RECORDS SUMMARY | 2024-04-01 11:18 | XMS_ITS | Encounter Summary ---
Author Organization [facility] Address [address] [place] [address] Phone Care Team Providers Care Cafeteria Server Name Role Phone Kevin Bowles MD Primary Care Provider [phone] Eric Crowder MD Unavailable [phone] Encounter Details Date Type Department Care Team (Late st Contact Info) Description 06/13/2021 Telephone [facility] [address] [place] [address] Christa Bueno PA [address] [place] [address] Social History Tobacco Use Types Packs/Day Years Used Date Smoking Tobacco: Never Alcohol Use Standard Drinks/Week Comments Yes 0 (1 standard drink = 0.6 oz pur e alcohol) Comments Unknown Sex and Gender Information Value Date Recorded Sex Assigned at Not on file 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 * Telephone Encounter - Christa Bueno PA - 06/13/2021 3:21 PM CDT Please let patient know that hand US findings remain mild and relatively unchanged compared to previous. Will continue with current treatment at this time and monitor for any progression of disease activity. documented in this encounter Plan of Treatment Not on file documented as of this encounter Visit Diagnoses Not on filedocumented in this encounter Care Teams Cafeteria Server Relationship Specialty Start Date End Date Kevin Bowles MD [address] [facility] [address] [place] [address] PCP - General 06/19/16 01/16/24 Eric Crowder MD [address] [facility] [address] [place] [address] Rheumatology 01/18/17 documented as of this encounter
--- OUTSIDE RECORDS SUMMARY | 2024-04-01 11:18 | XMS_ITS | Encounter Summary ---
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 Also still has L wrist pain. Pt denies redness to the effected joints but does have swelling. Spoke w/Christa & she said if pt has not had x-rays she really needs to go to for imaging as we don't want to mask a fracture w/steroids. Relayed Christa's message to pt. She voices understanding & will go to for eval. documented in this encounter Plan of Treatment Not on file documented as of this encounter Visit Diagnoses Not on filedocumented in this encounter Care Teams Diversional Therapist Relationship Specialty Start Date End Date Kevin Bowles MD [address] [facility] [address] [place] [address] PCP - General 06/19/16 01/16/24 Eric Crowder MD [address] [facility] [facility] [address] [place] [address] Rheumatology 01/18/17 documented as of this encounter
--- OUTSIDE RECORDS SUMMARY | 2024-04-01 11:18 | XMS_ITS | Encounter Summary ---
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); longterm current use 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; Elevated LFTs Social History Tobacco Use Types Packs/Day Years [...] on file 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 Gender Identity Not on file Sexual Orientation Not on file documented as of this encounter Last Filed Vital Signs Vital Sign Reading Time Taken Comments Blood Pressure 118/64 06/12/2022 10:06 AM CDT Pulse 67 06/12/2022 10:06 AM CDT Temperature - - Respiratory Rate - - Oxygen Saturation 97% 06/12/2022 10: 06 AM CDT Inhaled Oxygen Concentration - - Weight 116.7 kg (257 lb 3.2 oz) 023 10:06 AM CDT Height 162.6 cm (5' 4 ) 06/12/2022 10:0 6 AM CDT Body Mass Index 44.15 06/12/2022 10:06 AM CDT documented in this encounter Ordered Prescriptions Prescription Sig Dispense Quantity Refills Last Filled Start Date End Date leflunomide (ARAVA) 20 mg tabletIndications: Rheumatoid Arthritis Take 1 tablet (20 mg total) by mouth daily 30 tablet 1 06/12/2022 09/18/2022 documented in this encounter Progress Notes * Christa Bueno PA - 06/12/2022 10:00 AM CDT Images from the original note were not included. Subjective/Objective Patient ID: Monica Buckner is a 52 y.o. female. Chief Complaint Joint pain HPI Returns for routine follow up. Eye exam UTD 02/09/22. Fell and injured right wrist, elbow, and knee. Had XR which ruled out fx. Has been having flares since last visit. R elbow hurting since fall and no benefit with epicondyle strap, NSAIDs, or voltarengel. Had steroids a few weeks ago which help temporarily. Worried that MTX is not helping as much and liver enzymes have elevated so wondering if she should consider other medications. Has been traveling recently and was in [place] and then [place] so diet has been poor and feels this affects her overall pain as well. Denies fevers, infections, rashes, mouth sores, cough, dyspnea, n/v. Joint pain today is 5 /10. AM stiffness = few hours Review of Systems Constitutional: Positive for fatigue. Negative for chills and fever. HENT: Negative for congestion and mouth sores. Respiratory: Negative for cough and shortness of breath. Cardiovascular: Negative for chest pain. Gastrointestinal: Negative for abdominal pain, diarrhea, nausea and vomiting. Musculoskeletal: Positive for arthralgias. Negative for myalgias. Skin: Negative for rash. Vitals: Vitals BP 118/64 Pulse 67 Ht 162.6 cm (5' 4 ) Wt 116.7 kg (257 lb 3.2 oz) LMP (LMP Unknown) SpO2 97% BMI 44.15 kg/m?? Body mass index is 44.15 kg/m??. Bold X is a current medication. [...] normal. Patient Global: 50 mm Provider Global: 50 mm CDAI: 22 In remission: 0-3 Low: 4-10 Moderate: 11-22 High: 23 or > Labs Lab Results Component Value Date WBC 7.9 06/08/2022 HGB 14.3 06/08/2022 HCT 42.0 06/08/2022 MCV 89.2 06/08/2022 Lab Results Component Value Date GLUCOSE 96 06/08/2022 CALCIUM 9.2 06/08/2022 SODIUM 138 06/08/2022 POTASSIUM 4.1 06/08/2022 CO2 29 06/08/2022 CHLORIDE 106 06/08/2022 BUNSER 14 06/08/2022 CREATININE 0.64 06/08/2022 Lab Results Component Value Date ALT 65 (H) 06/08/2022 AST 55 (H) 06/08/2022 ALKPHOS 91 06/08/2022 BILITOT 0.4 06/08/2022 Lab Results Component Value Date SEDRATE 9 06/08/2022 Lab Results Component Value Date CRP 9.4 (H) 06/08/2022 US right hand/wrist (06/02/17): Moderate synovitis with [...] (HCC) (Primary) Assessment & Plan: Moderate cdai. Repeat hand US revealed little change compared to US from 05/2019 suggesting inflammation remained controlled on current tx. She has been losing weight as well through diet and this hasprovided some relief of her chronic joint pain [...] up in 6-8 weeks. Sooner if needed. Orders: - Hepatic function panel; Future longterm current use 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 Assessment & Plan: Routine labs via standing order. Elevated LFTs - Hepatic function panel; Future Other orders - leflunomide (ARAVA) 20 mg tablet; Take 1 tablet (20 mg total) by mouth daily Christa Bueno PA-C Cosigned by Eric Crowder MD at 06/12/2022 4:31 PM CDT documented in this encounter Miscellaneous Notes * Assessment & Plan Note - Christa Bueno PA - 06/12/2022 12:16 PM CDTAssociated Problem(s): 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/HCC) (HCC) Moderate cdai. Repeat hand US revealed little change compared to US from 05/2019 suggesting inflammation remained controlled on current tx. She has been losing weight as well through diet and this hasprovided some relief of her chronic joint pain [...] up in 6-8 weeks. Sooner if needed. * Assessment & Plan Note - Christa Bueno PA - 06/12/2022 10:04 AM CDTAssociated Problem(s): longterm current use 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 Routine labs via standing order. documented in this encounter Plan of Treatment Not on file documented as of this encounter Procedures Procedure Name Priority Date/Time Associated Diagnosis Comments HEPATIC FUNCTION PANEL Routine 06/26/2022 1:04 PM CDT 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/HCC) (HCC) Elevated LFTs documented in this encounter Results * Hepatic function panel (06/26/2022 1:04 PM CDT) Protein, Total 7.0 6.4 - 8.4 g/dL [facility] Albumin 4.2 3.6 - 5.1 g/dL [facility] Globulin 2.8 2.2 - 4.0 g/dL (calc) [facility] Alb/glob ratio 1.5 0.9 - 2.3 (calc) [facility] Bilirubin, total 0.5 0.2 - 1.2 mg/dL [facility] Bilirubin, direct 0.1 < OR = 0.2 mg/dL [facility] Bilirubin, indirect 0.4 0.2 - 1.2 mg/dL (calc) [facility] Alk phos 71 37 - 153 U/L [facility] AST 19 10 - 35 U/L [facility] ALT (SGPT) 28 6 - 29 U/L [facility] Blood 06/26/2022 1:04 PM CDT 06/26/2022 1:05 PM CDT us Christa JAY LAB BLOOD ORDERABLES Final Result ROSEMARIE Krishnamurthy [address] [place] [address] documented in this encounter Visit Diagnoses Diagnosis 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 Unspecified inflammatory polyarthropathy 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 Elevated LFTs Other abnormal blood chemistry documented in this encounter Discontinued Medications Medication Sig Discontinue Reason Start Date End Da te methotrexate 2.5 mg tabletIndications:Rheuma toid Arthritis Take 8 tablets (20 mg total) by mouth every 7 days 12/01/2021 06/12/2022 folic acid (FOLVITE) 1 mg tablet Take 1 tablet (1 mg total) by mouth daily Take one tab daily 12/01/2021 06/12/2022 documented as of this encounter Care Teams Brick Offbearer Relationship Specialty Start Date End Date Kevin Bowles MD [facility] [address] [address] PCP - General 06/19/16 01/16/24 Eric Crowder MD [address] [facility] [address] [place] [address] Rheumatology 01/18/17 documented as of this encounter
--- OUTSIDE RECORDS SUMMARY | 2024-04-01 11:18 | XMS_ITS | Encounter Summary ---
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 30 tablet 06/19/2022 documented in this encounter Plan of Treatment Not on file documented as of this encounter Visit Diagnoses Not on filedocumented in this encounter Discontinued Medications Medication Sig Discontinue Reason Start Date End Da te predniSONE (DELTASONE) 5 mg tablet Take 4 tablets (20mg) by mouth daily x3 days, then decrease by 1 tablet (5mg) every 3 days until off. Reorder 12/22/2021 06/19/2022 documented as of this encounter Care Teams Handkerchief Cutter Relationship Specialty Start Date End Date Kevin Bowles MD [address] [facility] [address] [place] [address] PCP - General 06/19/16 01/16/24 Eric Crowder MD [address] [facility] [address] [place] [address] Rheumatology 01/18/17 documented as of this encounter
--- OUTSIDE RECORDS SUMMARY | 2024-04-01 11:18 | XMS_ITS | Encounter Summary ---
Author Organization [facility] Address [address] [facility] [address] [place] [address] Care Team Providers Care Automobile Club Travel Counselor Name Role Phone Kevin Bowles MD Primary Care Provider [phone] Eric Crowder MD Unavailable [phone] Encounter Details Date Type Department Care Team (Late st Contact Info) Description 08/22/2021 Orders Only [facility] [id number] Kevin Bowles MD [address] [facility] [address] [place] [address] Social History Tobacco Use Types Packs/Day Years Used Date Smoking Tobacco: Never Alcohol Use Standard Drinks/Week Comments Yes 0 (1 standard drink = 0.6 oz pur e alcohol) Comments Unknown Sex and Gender Information Value Date Recorded Sex Assigned at Not on file 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 Gender Identity Not on file Sexual Orientation Not on file documented as of this encounter Plan of Treatment Not on file documented as of this encounter Procedures Procedure Name Priority Date/Time Associated Diagnosis Comments COPY RECEIVED FROM Routine 08/22/2021 10 :55 AM CDT TSH W/REFL FT4 Routine 08/22/2021 10:55 AM CDT CBC WITH AUTO DIFFERENTIAL Routine 08/22/2021 10:55 AM CDT LIPID PANEL Routine 08/22/2021 10:55 AM CDT COMPREHENSIVE METABOLIC PANEL Routine 08/22/2021 10:55 AM CDT documented in this encounter Results * TSH W/REFL FT4 (08/22/2021 10:55 AM CDT) Pathologist [facility] TSH 1.82 mIU/L [facility] Comment: ?Reference Range ?> or = 20 Years ??0.40-4.50 ? Ranges ?First trimester ?0.26-2.66 ?Second trimester ?? 0.55-2.73 ?Third trimester ?0.43-2.91 08/22/2021 10:5 5 AM CDT 08/22/2021 10:57 AM CDT Narrative [facility] - 08/23/2021 5:51 AM CDT CC: MARTÍNEZ GOMEZ Kevin Bowles MD LAB BLOOD ORDERABLES Joi l Result [facility] [address] [place] [address] * CBC with auto differential (08/22/2021 10:55 AM CDT) [facility] WBC 5.2 3.8 - 10.8 Thousand/u L [facility] RBC, POC 4.62 3.80 - 5.10 Million/uL [facility] Hgb 13.4 11.7 - 15.5 g/dL [facility] Hct 41.1 35.0 - 45.0 % [facility] MCV 89.0 80.0 - 100.0 fL [facility] MCH 29.0 27.0 - 33.0 pg [facility] MCHC 32.6 32.0 - 36.0 g/dL [facility] Rdw 14.6 11.0 - 15.0 % [facility] Platelets 225 140 - 400 Thousand/u L [facility] MPV 9.4 7.5 - 12.5 fL [facility] Neutrophils, abs 2,491 1,500 - 7,800 cells/uL [facility] Lymphocytes, abs 2,090 850 - 3,900 cells/uL [facility] Monocyte abs 478 200 - 950 cells/uL [facility] Eosinophils, abs 120 15 - 500 cells/uL [facility] Basophils, abs 21 0 - 200 cells/uL [facility] Neutrophils 47.9 % [facility] Lymphocyte pct 40.2 % [facility] Monocytes 9.2 % [facility] Eosinophils 2.3 % [facility] Basophils 0.4 % [facility] 08/22/2021 10:5 5 AM CDT 08/22/2021 10:57 AM CDT Narrative [facility] - 08/23/2021 5:51 AM CDT CC: MARTÍNEZ GOMEZ Kevin Bowles MD LAB BLOOD ORDERABLES Joi l Result [facility] [address] [place] [address] * (ABNORMAL) Comprehensive metabolic panel (08/22/2021 10:55 AM CDT) [facility] Glucose 85 65 - 99 mg/dL [facility] Comment: ? Fasting reference interval BUN 12 7 - 25 mg/dL [facility] Creatinine 0.76 0.50 - 1.05 mg/dL [facility] Comment: For patients >49 years of age, the reference limit for Creatinine is approximately 13% higher for people identified as -Northern Irish. eGFR NON-AFR. SRI LANKAN 91 > OR = 60 mL/min/1 .73m2 [facility] EGFR 105 > OR = 60 mL/min/1 .73m2 [facility] BUN/creat ratio NOT APPLICABLE 6 - 22 (calc) [facility] Sodium 140 135 - 146 mmol/L [facility] Potassium, pl 3.8 3.5 - 5.3 mmol/L [facility] Chloride 104 98 - 110 mmol/L [facility] CO2 29 20 - 32 mmol/L [facility] Calcium 9.5 8.6 - 10.4 mg/dL [facility] Protein, sr 6.9 6.1 - 8.1 g/dL [facility] Albumin 4.1 3.6 - 5.1 g/dL [facility] GLOBULIN 2.8 1.9 - 3.7 g/dL (calc) [facility] Alb/glob ratio 1.5 1.0 - 2.5 (calc) [facility] Bilirubin, total 0.7 0.2 - 1.2 mg/dL [facility] Alk phos 70 37 - 153 U/L [facility] AST 19 10 - 35 U/L [facility] ALT (SGPT) 31(H) 6 - 29 U/L [facility] 08/22/2021 10:5 5 AM CDT 08/22/2021 10:57 AM CDT Narrative [facility] - 08/23/2021 5:51 AM CDT CC: MARTÍNEZ GOMEZ Kevin Bowles MD LAB BLOOD ORDERABLES Joi l Result [facility] [address] [facility] [place] [address] * (ABNORMAL) Lipid panel (08/22/2021 10:55 AM CDT) Cholesterol 164 <200 mg/dL [facility] HDL 46(L) > OR = 50 mg/dL [facility] Triglycerides 124 <150 mg/dL [facility] LDL 95 mg/dL (calc) [facility] Comment: Reference range: <100 Desirable range <100 mg/dL for primary prevention; ?? <70 mg/dL for patients with CHD or diabetic patients with > or = 2 CHD risk factors. LDL-C is now calculated using the Nilesh calculation, which is a validated novel method providing better accuracy than the Friedewald equation in the estimation of LDL-C. Efrain AMIN et al. TRAVON. 2013;310(23): 7023-8202 (http://education.HOTELbeat/faq/FAV128) Chol/HDL ratio 3.6 <5.0 (calc) [facility] Non-HDL, (LDL+VLDL) 118 <130 mg/dL (calc) [facility] Comment: For patients with diabetes plus 1 major ASCVD risk factor, treating to a non-HDL-C goal of <100 mg/dL (LDL-C of <70 mg/dL) is considered a therapeutic option. 08/22/2021 10:5 5 AM CDT 08/22/2021 10:57 AM CDT Narrative [facility] - 08/23/2021 5:51 AM CDT CC: MARTÍNEZ GOMEZ us Kevin Bowles MD LAB BLOOD ORDERABLES Joi shay Result RO[facility]IE Loaded [facility] [address] [place] [address] * Copy received from (08/22/2021 10:55 AM CDT) Copy Rec'd from: [facility] Comment: ?[facility] ?[facility] ?[facility] ?[address] ?[place] [address] 08/22/2021 10:5 5 AM CDT 08/22/2021 10:57 AM CDT Narrative [facility] - 08/23/2021 5:51 AM CDT CC: MARTÍNEZ GOMEZ Kevin Bowles MD LAB BLOOD ORDERABLES Joi l Result [facility] documented in this encounter Visit Diagnoses Not on filedocumented in this encounter Care Teams Automobile Club Travel Counselor Relationship Specialty Start Date End Date Kevin Bowles MD [address] [facility] [address] [place] [address] PCP - General 06/19/16 01/16/24 Eric Crowder MD [address] [facility] [address] [place] [address] Rheumatology 01/18/17 documented as of this encounter
--- OUTSIDE RECORDS SUMMARY | 2024-04-01 11:18 | XMS_ITS | Encounter Summary ---
Author Organization [facility] Healthcare Address [address] [place] [address] Care Team Providers Care Product Support Analyst Name Role Phone Kevin Bowles MD Primary Care Provider [phone] Eric Crowder MD Unavailable Reason for Visit * Auth/Cert Specialty Diagnoses / Procedures Referred By Marc t Referred To Contact Diagnoses Screening for colon cancer Screening for colon cancer [Z12.11] Procedures ID COLONOSCOPY FLX DX W/COLLJ SPEC WHEN PFRMD ID COLONOSCOPY W/BIOPSY SINGLE/MULTIPLE COLONOSCOPY OA Referral ID Status Reason Start Date Expiration Date Visits Re quested Visits Authorized [id number] 1 1 Encounter Details Date Type Department Care Team (Late st Contact Info) Description 10/08/2021 3:15 PM CDT - 10/08/2021 4:00 PM CDT Surgery [facility] Digestive Disease [place] [address] [facility] [address] [place] [address] Bill Goodman MD [address] [place] [address] COLON BIOPSY Surgery Details Date/Time Status Location OR Service Patient Class Case Class Case Type Trauma Case? 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 female who is [...] on the skin once a week. Yes Provider, MD Miles ergocalciferol (VITAMIN D) 50,000 unit capsule Take [...] Take 50 mg by mouth nightly. Yes Miles Murillo MD polyethylene glycol (GoLYTELY) 236-22.74-6.74 -5.86 gram [...] COLONOSCOPY [facility] Patient Name: Monica Buckner Procedure Date: 10/08/2021 2:42 PM Date of : 1970 Admit Type: Outpatient Age: 51 Gender: Female Attending MD: Bill Goodman M.D. Room: [facility] ENDOSCOPY ROOM 3 Note Status: Finalized [...] scope was passed under direct vision. The Arstasis HQ [id number] endoscope was introduced through the anus and advanced to the cecum, identified by appendiceal orifice and ileocecal valve. The colonoscopy was performed without difficulty. The patient tolerated the procedure well. The quality of the bowel preparation was evaluated using the BBPS ([place] Bowel Preparation Scale) with scores of: Right [...] On: 10/08/2021 2:42 PM Recognized by the [place] [employer] for promoting quality [...] gastric) 10/08/2021 3:08 PM CDT Narrative PATHOLOGY [facility] - 10/10/2021 11:14 AM CDT EPIC results best viewed via link to PDF [facility] [place] [address] Note to Patients: This report may contain [...] PATHOLOGY REPORT FINAL Patient Name: ?? MONICA BUCKNER Gender: ??F : ??1970 (Age: 51) Address: ??[address] [place] [address] ??[id number] Hospital #: ??[id number] Taken:10/08/2021 Received:10/08/2021 Reported: 10/10/2021 Patient Type: [facility] SDS ?? Service: Gastroenterology Location: Physician(s): ??Katie [...] 0 ?? sxv/10/09/2021 08:52 PA(s): PIERRE Dickson ([facility]) By this signature, I attest that the above diagnosis is based upon my personal examination of the slides(and/or other material). Addenda/Procedures The performance characteristics of some immunohistochemical stains, fluorescence in-situ hybridization tests and immunophenotyping by flow cytometry cited in this report (if any) were determined by the Surgical Pathology and Flow Cytometry Departments at [facility] as part of an ongoing corporate quality manager program and in compliance with federally mandated [...] Surgical Pathology and Flow Cytometry Departments of [facility]. ??It has not been cleared or approved by the U. S. Food and Drug Administration. IMAGES AND SCANNED DOCUMENTS, IF INCLUDED, ONLY VIEWABLE IN PDF VERSION OF REPORT Bill Goodman MD LAB PATHOLOGY [facility] Final Result PATHOLOGY [facility] 3rd Floor [place], [place] [phone] * COLONOSCOPY (10/08/2021 2:42 PM CDT) Anatomical Region Laterality Modality Other Narrative Procedure Note Bill Goodman MD - 10/08/2021 2:42 PM CDT [facility] Patient Name: Monica Buckner Procedure Date: 10/08/2021 2:42 PM Date of : 1970 Admit Type: Outpatient Age: 51 Gender: Female Attending MD: Katie Powers Room: [facility] ENDOSCOPY ROOM 3 Note Status: Finalized [...] The scope was passed under direct vision.The HQ 190L [id number] endoscope was introducedthrough the anus and advanced to the cecum, identified by appendiceal orifice and ileocecal valve. The colonoscopy was performed without difficulty. The patient tolerated the procedure well. The qualityof the bowel preparation was evaluated using the BBPS ([place] Bowel Preparation Scale) with scores of:Right Colon [...] On: 10/08/2021 2:42 PM Recognized by the [place] [employer] for promoting quality in endoscopy Bill Goodman MD ENDOSCOPY PROCEDUR ES Final Result documented in this encounter Visit Diagnoses Diagnosis Screening for colon cancer Special screening for malignant neoplasms, colon Screening for colon cancer Special screening for [...] 1442 (New Bag - Prov ider: Elizabeth Mcintyre, JAYCOB)1447 (Rate/Dose Verify - Provider: Herbert Huddleston [...] 10/08/2021 documented in this encounter Care Teams Product Support Analyst Relationship Specialty Start Date End Date Kevin Bowles MD [facility] [address] [place] [address] PCP - General 06/19/16 01/16/24 Eric Crowder MD [address] [facility] [[email or web address] [address] [place] [address] Rheumatology 01/18/17 documented as of this encounter
--- OUTSIDE RECORDS SUMMARY | 2024-04-01 11:18 | XMS_ITS | Encounter Summary ---
Author Organization [facility] Address [address] [place] [address] Phone Care Team Providers Care Sales Technician Home Theater Name Role Phone Kevin Bowles MD Primary Care Provider [phone] Eric Crowder MD Unavailable [phone] Encounter Details Date Type Department Care Team (Late st Contact Info) Description 05/30/2021 Orders Only [facility] [address] [place] [address] Christa Bueno PA [address] [place] [address] Social History Tobacco Use Types Packs/Day Years Used Date Smoking Tobacco: Never Alcohol Use Standard Drinks/Week Comments Yes 0 (1 standard drink = 0.6 oz pur e alcohol) Comments Unknown Sex and Gender Information Value Date Recorded Sex Assigned at Not on file 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 Gender Identity Not on file Sexual Orientation Not on file documented as of this encounter Ordered Prescriptions Prescription Sig Dispense Quantity Refills Last Filled Start Date End Date ondansetron (ZOFRAN) 8 mg tablet Take 1 tablet (8 mg total) by mouth every 8 (eight) hours as needed for nausea or vomiting 12 tablet 1 05/30/2021 2 documented in this encounter Plan of Treatment Not on file documented as of this encounter Visit Diagnoses Not on filedocumented in this encounter Discontinued Medications Medication Sig Discontinue Reason Start Date End Da te ondansetron (ZOFRAN) 8 mg tablet Take 1 tablet (8 mg total) by mouth every 8 (eight) hours as needed for nausea or vomiting Reorder 01/29/2021 05/30/2021 documented as of this encounter Care Teams Sales Technician Home Theater Relationship Specialty Start Date End Date Kevin Bowles MD [address] [facility] [address] [place] [address] PCP - General 06/19/16 01/16/24 Eric Crowder MD [address] [facility] [address] [place] [address] [facility] 01/18/17 documented as of this encounter
--- OUTSIDE RECORDS SUMMARY | 2024-04-01 11:18 | XMS_ITS | Encounter Summary ---
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 * Telephone Encounter - Christa Bueno PA - 12/22/2021 4:43 PM CDT Rx sent. * Telephone Encounter - Chantel Ziegler - 12/22/2021 3:21 PM CDT Pt left vm stating she is flaring & wants to know if [facility] [address] [facility] [place] documented in this encounter Plan of Treatment Not on file documented as of this encounter Visit Diagnoses Not on filedocumented in this encounter Care Teams Deaf And Hard Of Hearing Teacher Relationship Specialty Start Date End Date Kevin Bowles MD [address] [place] [address] [facility] 200 [place] [address] PCP - General 06/19/16 01/16/24 Eric Crowder MD [address] [place] [address] Rheumatology 01/18/17 documented as of this encounter
--- OUTSIDE RECORDS SUMMARY | 2024-04-01 11:18 | XMS_ITS | Encounter Summary ---
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) Social History Tobacco Use Types Packs/Day Years Used Date Smoking Tobacco: Never Alcohol Use Standard Drinks/Week Comments Yes 0 (1 standard drink = 0.6 oz pur e alcohol) Comments Unknown Sex and Gender Information Value Date Recorded Sex Assigned at Not on file Legal Sex Female 9: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 Gender Identity Not on file Sexual Orientation Not on file documented as of this encounter Plan of Treatment Not on file documented as of this encounter Visit Diagnoses Diagnosis 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 Unspecified inflammatory polyarthropathy documented in this encounter Administered Medications Inactive Administered Medications - up to 3 most recent administrations Medication Order MAR Action Action Date Dose Rate Site triamcinolone (KENALOG) 40 mg/mL injection 100 mg 100 mg, intramuscular, Once, On Holly 05/29/21 at 0900, For 1 doseIndications:Undiffer entiated inflammatory arthritis (CMS/HCC) (HCC) Given 05/29/2021 1:31 PM TELEPHONE STATION REPAIRER 100 mg Right Ventrogluteal documented in this encounter Care Teams Tank Insulator Rubber Relationship Specialty Start Date End Date Kevin Bowles MD [facility] [facility] [address] [place] [address] PCP - General 06/19/16 01/16/24 Eric Crowder MD [address] [facility] [address] [place] [address] Rheumatology 01/18/17 documented as of this encounter
--- OUTSIDE RECORDS SUMMARY | 2024-04-01 11:18 | XMS_ITS | Encounter Summary ---
Author Organization [facility] Address [address] [place] [address] Phone Care Team Providers Care Clip On Sunglasses Assembler Name Role Phone Kevin Bowles MD Primary Care Provider [phone] Eric Crowder MD Unavailable [phone] Reason for Visit * Reason Onset Date Comments Wants Prednisone Taper 06/19/2022 Encounter Details Date Type Department Care Team (Late st Contact Info) Description 06/19/2022 Telephone [facility] [address] [place] [phone] Chantel Ziegler Wants Prednisone Taper Social History Tobacco Use Types Packs/Day Years [...] on file 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 * Telephone Encounter - Christa Bueno PA - 06/19/2022 12:20 PM CDT Rx sent. * Telephone Encounter - Chantel Ziegler - 06/19/2022 12:07 PM CDT Pt left vm stating she is still flaring & wants script for Prednisone taper [facility] on [address] in [place] documented in this encounter Plan of Treatment Not on file documented as of this encounter Visit Diagnoses Not on filedocumented in this encounter Care Teams Clip On Sunglasses Assembler Relationship Specialty Start Date End Date Kevin Bowles MD [facility] [address] [place] [address] PCP - General 06/19/16 01/16/24 Eric Crowder MD [address] [facility] [address] [place] [address] Rheumatology 01/18/17 documented as of this encounter
--- OUTSIDE RECORDS SUMMARY | 2024-04-01 11:19 | XMS_ITS | Encounter Summary ---
Author Organization [facility] Address [address] [place] [address] Phone Care Team Providers Care Automobile Locator Name Role Phone Kevin Bowles MD Primary Care Provider [phone] Eric Crowder MD Unavailable [phone] Encounter Details Date Type Department Care Team (Late st Contact Info) Description 06/13/2019 Telephone [facility] [address] [place] [phone] Chantel Ziegler Social History Tobacco Use Types Packs/Day Years Used Date Smoking Tobacco: Never Alcohol Use Standard Drinks/Week Comments Yes 0 (1 standard drink = 0.6 oz pur e alcohol) Comments Unknown Sex and Gender Information Value Date Recorded Sex Assigned at Not on file 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 Pt is going to check w/local [facility] & if they have the meds will have [facility] transfer the scripts to [facility] * Telephone Encounter - Christa Willis PA - 06/13/2019 3:49 PM CDT Discussed with Dr. Crowder. He recommends just waiting it out as it is likely just a short delay and to not change any of her current medications. Did she try finding another pharmacy for the SSZ to be refilled? I can also try to attach a diagnosis to her medications as it may give her preference for when it can be filled. * Telephone Encounter - Chantel Ziegler - 06/13/2019 3:43 PM CDT Pt reports she is not able to get the SSZ or the HCQ currently. Wants to know if she can just dc those & increase her MTX. If you increase the MX she wants to go to injectables as she does not think her stomach can handle more MTX. Also willing to try adding Xeljanz if you think that is appropriate. documented in this encounter Plan of Treatment Not on file documented as of this encounter Visit Diagnoses Not on filedocumented in this encounter Care Teams Automobile Locator Relationship Specialty Start Date End Date Kevin Bowles MD [address] [place] [address] [facility] [address] [place] [address] PCP - General 06/19/16 01/16/24 Eric Crowder MD [address] [facility] [address] [place] [address] Rheumatology 01/18/17 documented as of this encounter
--- OUTSIDE RECORDS SUMMARY | 2024-04-01 11:19 | XMS_ITS | Encounter Summary ---
Author Organization [facility] Address [address] [place] [address] Phone Care Team Providers Care Retort Furnace Operator Name Role Phone Kevin Bowles MD Primary Care Provider [phone] Eric Crowder MD Unavailable [phone] Reason for Visit * Reason Comments Arthritis Encounter Details Date Type Department Care Team (Latest Contact Info) Description 08/30/2019 11:15 AM CDT Office Visit [facility] [address] [place] [phone] Christa Bueno PA [address] [place] [address] 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/HCC) (Primary Dx); skilled nursing current use 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 Social History Tobacco Use Types Packs/Day Years Used Date Smoking Tobacco: Never Alcohol Use Standard Drinks/Week Comments Yes 0 (1 standard drink = 0.6 oz pur e alcohol) Comments Unknown Sex and Gender Information Value Date Recorded Sex Assigned at Not on file Legal Sex Female 9:01 PM COATER HAND Gender Identity Not on file Sexual Orientation Not on file documented as of this encounter Last Filed Vital Signs Vital Sign Reading Time Taken Comments Blood Pressure 128/78 08/30/2019 11:42 AM CDT Pulse - - Temperature 36.4 ??C (97.6 ??F) 08/30/2019 11:42 AM C DT Respiratory Rate - - Oxygen Saturation - - Inhaled Oxygen Concentration - - Weight 143.8 kg (317 lb) 08/30/2019 11:42 AM CDT Height 162.6 cm (5' 4 ) 08/30/2019 11:42 AM CDT Body Mass Index 54.41 08/30/2019 11:42 AM CDT documented in this encounter Ordered Prescriptions Prescription Sig Dispense Quantity Refills Last Filled Start Date End Date sulfaSALAzine EN (AZULFIDINE EN) 500 mg EC tablet Take 3 tabs PO bid 180 tablet 2 08/30/2019 0 ondansetron (ZOFRAN) 4 mg tablet Take 1 tablet (4 mg total) by mouth every 8 (eight) hours as needed for nausea or vomiting 30 tablet 08/30/2019 0 methotrexate 2.5 mg tabletIndications: Rheumatoid Arthritis Take 6 Tablets by mouth once weekly 24 tablet 2 08/30/2019 0 hydroxychloroquine (PLAQUENIL) 200 mg tabletIndications: Connective Tissue Disease,auto immune disease Take 1 tablet (200 mg total) by mouth 2 (two) times a day 180 tablet 08/30/2019 0 folic acid (FOLVITE) 1 mg tablet Take 1 tablet (1 mg total) by mouth daily Take one tab daily 30 tablet 5 08/30/2019 0 documented in this encounter Progress Notes * Christa Willis PA - 08/30/2019 11:15 AM CDT Images from the original note were not included. Subjective/Objective Patient ID: Monica Buckner is a 49 y.o. female. Chief Complaint Arthritis HPI Returns for routine follow up. Had bursitis in her right shoulder and was put on a steroid taper with benefit. Reports resolve of pain. Denies fevers, infections, rashes, mouth sores, cough, dyspnea, n/v. Joint pain today is 4 /10. AM stiffness = few minutes Review of Systems Constitutional: Negative for fatigue. Negative for chills and fever. HENT: Negative for congestion and mouth sores. Respiratory: Negative for cough and shortness of breath. Cardiovascular: Negative for chest pain. Gastrointestinal: Negative for abdominal pain, diarrhea, nausea and vomiting. Musculoskeletal: Positive for arthralgias. Negative for myalgias. Skin: Negative for rash. Vitals: Vitals BP 128/78 Temp 36.4 ??C (97.6 ??F) Ht 162.6 cm (5' 4 ) Wt (!) 143.8 kg (317 lb) BMI 54.41 kg/m?? Body mass index is 54.41 kg/m??. Physical Exam Constitutional: oriented to person, place, and time. appears well-developed and well-nourished. HENT: Head: Normocephalic. Eyes: Conjunctivae are normal. Pupils are equal, round, and reactive to light. Cardiovascular: Normal rate, regular rhythm and normal heart sounds. No murmur heard. Pulmonary/Chest: Effort normal and breath sounds normal. no wheezes. no rales. Musculoskeletal: See cdai. Neurological: alert and oriented to person, place, and time. Skin: Skin is warm and dry. No rash noted. Psychiatric: normal mood and affect. speech is normal and behavior is normal. Cognition and memory are normal. Labs Lab Results Component Value Date WBC 5.8 08/23/2019 HGB 13.4 08/23/2019 HCT 39.3 08/23/2019 MCV 89.1 08/23/2019 Lab Results Component Value Date GLUCOSE 112 (H) 08/23/2019 CALCIUM 9.2 08/23/2019 SODIUM 141 08/23/2019 POTASSIUM 3.9 08/23/2019 CO2 29 08/23/2019 CHLORIDE 105 08/23/2019 BUNSER 6 (L) 08/23/2019 CREATININE 0.67 08/23/2019 Lab Results Component Value Date ALT 58 (H) 08/23/2019 AST 29 08/23/2019 ALKPHOS 75 08/23/2019 BILITOT 0.4 08/23/2019 Lab Results Component Value Date SEDRATE 14 08/23/2019 Lab Results Component Value Date CRP 14.5 (H) 08/23/2019 Patient Global Assessment: 40 (mm) Provider Global Assessment: 40 (mm) CDAI: 11 In remission: 0-3 Low: 4-10 Moderate: 11-22 High: 23 or > Assessment/Plan Diagnoses and all orders for this visit: 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/HCC) (Primary) Assessment & Plan: Moderate cdai. No obvious synovitis with mild [...] up in 3 months. Sooner if needed. skilled nursing current use 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 Assessment & Plan: Routine labs via standing order. Due for eye exam. Other orders - folic acid (FOLVITE) 1 mg tablet; Take 1 tablet (1 mg total) by mouth daily Take one tab daily - hydroxychloroquine (PLAQUENIL) 200 mg tablet; Take 1 tablet (200 mg total) by mouth 2 (two) timesa day - methotrexate 2.5 mg tablet; Take 6 Tablets by mouth once weekly - ondansetron (ZOFRAN) 4 mg tablet; Take 1 tablet (4 mg total) by mouth every 8 (eight) hours as needed for nausea or vomiting - sulfaSALAzine EN (AZULFIDINE EN) 500 mg EC tablet; Take 3 tabs PO bid Cosigned by Eric Crowder MD at 08/31/2019 9:58 AM CDT documented in this encounter Miscellaneous Notes * Assessment & Plan Note - Christa Willis PA - 08/30/2019 11:48 AM CDTAssociated Problem(s): 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/HCC) (HCC) Moderate cdai. No obvious synovitis with mild [...] up in 3 months. Sooner if needed. * Assessment & Plan Note - Christa Willis PA - 08/30/2019 11:24 AM CDTAssociated Problem(s): panel fitter current use 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 Routine labs via standing order. Due for eye exam. 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 Unspecified inflammatory polyarthropathy panel fitter current use 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 documented in this encounter Discontinued Medications Medication Sig Discontinue Reason Start Date End Da te folic acid (FOLVITE) 1 mg tablet Take 1 tablet (1 mg total) by mouth daily Take one tab daily Reorder 11/29/2018 08/30/2019 hydroxychloroquine (PLAQUENIL) 200 mg tabletIndications:Conne ctive Tissue Disease,auto immune disease Take 1 tablet (200 mg total) by mouth 2 (two) times a day Reorder 08/23/2019 08/30/2019 methotrexate 2.5 mg tabletIndications:Rheum atoid Arthritis Take 6 Tablets by mouth once weekly Reorder 06/12/2019 08/30/2019 ondansetron (ZOFRAN) 4 mg tablet Take 1 tablet (4 mg total) by mouth every 8 (eight) hours as needed for nausea or vomiting Reorder 06/12/2019 08/30/2019 sulfaSALAzine EN (AZULFIDINE EN) 500 mg EC tablet Take 3 tabs PO bid Reorder 06/12/2019 08/30/2019 documented as of this encounter Care Teams Retort Furnace Operator Relationship Specialty Start Date End Date Kevin Bowles MD [facility] [address] PCP - General 06/19/16 01/16/24 Eric Crowder MD [address] [facility] [address] [place] [address] Rheumatology 01/18/17 documented as of this encounter
--- OUTSIDE RECORDS SUMMARY | 2024-04-01 11:19 | XMS_ITS | Encounter Summary ---
Author Organization [facility] Facility Care Team Providers Care Chemists Name Role Phone Kevin Bowles MD Primary Care Provider [phone] Eric Crowder MD Unavailable [phone] Encounter Details Date Type Department Care Team (Latest Contact Info) Description 05/31/2019 Travel Social History Tobacco Use Types Packs/Day Years Used Date Smoking Tobacco: Never Alcohol Use Standard Drinks/Week Comments Yes 0 (1 standard drink = 0.6 oz pur e alcohol) Comments Unknown Sex and Gender Information Value Date Recorded Sex Assigned at Not on file Legal Sex Female 9:01 PM SQL REPORT 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 [address] [place] [address] PCP - General 06/19/16 01/16/24 Eric Crowder MD [address] [facility] [address] [place] [address] Rheumatology 01/18/17 documented as of this encounter
--- OUTSIDE RECORDS SUMMARY | 2024-04-01 11:19 | XMS_ITS | Encounter Summary ---
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); detention current use 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; Acute pain of right shoulder Social History Tobacco Use Types Packs/Day Years Used Date Smoking Tobacco: Never Alcohol Use Standard Drinks/Week Comments Yes 0 (1 standard drink = 0.6 oz pur e alcohol) Comments Unknown Sex and Gender Information Value Date Recorded Sex Assigned at Not on file 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 Gender Identity Not on file Sexual Orientation Not on file documented as of this encounter Last Filed Vital Signs Vital Sign Reading Time Taken Comments Blood Pressure 125/80 01/24/2021 1:52 PM CDT Pulse 80 01/24/2021 1:52 PM CDT Temperature 36.7 ??C (98 ??F) 01/24/2021 1:52 PM CDT Respiratory Rate - - Oxygen Saturation 97% 01/24/2021 1:52 PM CDT Inhaled Oxygen Concentration - - Weight 140.8 kg (310 lb 6.4 oz) 01/24/2021 1:52 PM CDT Height - - Body Mass Index 53.28 07/10/2020 12:16 PM CDT documented in this encounter Ordered Prescriptions Prescription Sig Dispense Quantity Refills Last Filled Start Date End Date methotrexate 2.5 mg tabletIndications: Rheumatoid Arthritis Take 8 tablets (20 mg total) by mouth every 7 days 96 tablet 1 01/24/2021 2 folic acid (FOLVITE) 1 mg tablet Take 1 tablet (1 mg total) by mouth daily Take one tab daily 90 tablet 1 01/24/2021 2 documented in this encounter Progress Notes * Christa Bueno PA - 01/24/2021 1:45 PM CDT Images from the original note were not included. Subjective/Objective Patient ID: Monica Buckner is a 50 y.o. female. Chief Complaint Inflammatory arthritis HPI Returns for routine follow up. Having pain involving the R shoulder and R elbow. Will wake her at night and pain is worse at rest.If she is active, it does lessen the pain and stiffness. Symptoms started 2-3 months ago. Called for prednisone taper which provided some relief but has recurred off steroids. If she turns her head acertain way, it will exacerbate the shoulder pain. Had annual ophtho appointment who noted possible mild uveitis and Rx optic steroid. Has not picke up yet. Denies fevers, infections, rashes, mouth sores, cough, dyspnea, n/v. Joint pain today is 7/10. AM stiffness = few hours Review of Systems Constitutional: Positive for fatigue. Negative for chills and fever. HENT: Negative for congestion and mouth sores. Respiratory: Negative for cough and shortness of breath. Cardiovascular: Negative for chest pain. Gastrointestinal: Negative for abdominal pain, diarrhea, nausea and vomiting. Musculoskeletal: Positive for arthralgias. Negative for myalgias. Skin: Negative for rash. Vitals: Vitals BP 125/80 Pulse 80 Temp 36.7 ??C (98 ??F) Wt (!) 140.8 kg (310 lb 6.4 oz) SpO2 97% BMI 53.28 kg/m?? Body mass index is 53.28 kg/m??. Bold X is a current medication. [...] Labs Lab Results Component Value Date WBC 5.9 01/20/2021 HGB 13.2 01/20/2021 HCT 39.5 01/20/2021 MCV 87.4 01/20/2021 Lab Results Component Value Date GLUCOSE 105 (H) 01/20/2021 CALCIUM 9.6 01/20/2021 SODIUM 141 01/20/2021 POTASSIUM 4.2 01/20/2021 CO2 33 (H) 01/20/2021 CHLORIDE 105 01/20/2021 BUNSER 9 01/20/2021 CREATININE 0.74 01/20/2021 Lab Results Component Value Date ALT 22 01/20/2021 AST 19 01/20/2021 ALKPHOS 63 01/20/2021 BILITOT 0.5 01/20/2021 Lab Results Component Value Date SEDRATE 14 01/20/2021 Lab Results Component Value Date CRP 5.3 01/20/2021 IMAGING: US right hand/wrist (06/02/17): Moderate synovitis with [...] throughout the wrist, MCP, and PIP joints. Patient Global: 70 mm Provider Global: 50 mm CDAI: 22 In remission: 0-3 Low: 4-10 Moderate: 11-22 High: 23 or > Assessment/Plan Diagnoses and all orders for this visit: 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/HCC) (HCC) (Primary) Assessment & Plan: Moderate cdai. Recent c/o R shoulder and [...] Sooner if needed. Seen with Dr. Crowder. terminal operations manager current use 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 Assessment & Plan: Routine labs via standing order. Acute pain of right shoulder Assessment & Plan: Will give intra-articular kenalog injection today. Patient [...] Area prepped with betadine and alcohol swabs. 40mgof kenalog injected into the right subacromial joint space. Bandage applied. Patient tolerated procedure well. Orders: - Ambulatory referral order to Physical Therapy -; Future Other orders - folic acid (FOLVITE) 1 mg tablet; Take 1 tablet (1 mg total) by mouth daily Take one tab daily - methotrexate 2.5 mg tablet; Take 8 tablets (20 mg total) by mouth every 7 days Christa Bueno PA-C Cosigned by Eric Crowder MD at 01/24/2021 4:50 PM CDT documented in this encounter Miscellaneous Notes * Assessment & Plan Note - Christa Bueno PA - 01/24/2021 3:13 PM CDT Associated Problem(s): 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/HCC) (HCC) Moderate cdai. Recent c/o R shoulder and [...] Plan Note - Christa Bueno PA - 01/24/2021 3:13 PM CDT Associated Problem(s): detention current use 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 Routine labs via standing order. * Assessment & Plan Note - Christa Bueno PA - 01/24/2021 2:41 PM CDT Associated Problem(s): Acute pain of right shoulder Will give intra-articular kenalog injection today. Patient [...] Area prepped with betadine and alcohol swabs. 40mgof kenalog injected into the right subacromial joint space. Bandage applied. Patient tolerated procedure well. 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 Unspecified inflammatory polyarthropathy detention current use 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 Acute pain of right shoulder documented in this encounter Discontinued Medications Medication Sig Discontinue Reason Start Date End Da te predniSONE (DELTASONE) 10 mg tablet Take 2 tablets (20mg) by mouth daily x5 days, then take 1 tablet (10mg) by mouth daily x5 days. 12/12/2020 01/24/2021 folic acid (FOLVITE) 1 mg tablet Take 1 tablet (1 mg total) by mouth daily Take one tab daily Reorder 07/10/2020 01/24/2021 methotrexate 2.5 mg tabletIndications:Rheuma toid Arthritis Take 8 tablets (20 mg total) by mouth every 7 days Reorder 07/10/2020 01/24/2021 documented as of this encounter Care Teams Grails Web Application Developer Relationship Specialty Start Date End Date Kevin Bowles MD [facility] [address] [address] PCP - General 06/19/16 01/16/24 Eric Crowder MD [address] [facility] [address] [place] [address] Rheumatology 01/18/17 documented as of this encounter
--- OUTSIDE RECORDS SUMMARY | 2024-04-01 11:19 | XMS_ITS | Encounter Summary ---
Author Organization [facility] Address [address] [place] [address] Phone Care Team Providers Care Bale Sewer Name Role Phone Kevin Bowles MD Primary Care Provider [phone] Eric Crowder MD Unavailable [phone] Reason for Visit * Reason Onset Date Comments Jenna Alcaraz 01/29/2021 Encounter Details Date Type Department Care Team (Late st Contact Info) Description 01/29/2021 Telephone [facility] [address] [place] [address] Chantel Ziegler Social History Tobacco Use Types Packs/Day Years Used Date Smoking Tobacco: Never Alcohol Use Standard Drinks/Week Comments Yes 0 (1 standard drink = 0.6 oz pur e alcohol) Comments Unknown Sex and Gender Information Value Date Recorded Sex Assigned at Not on file Legal Sex Female 9:01 PM FILE DRAWER FINISHER Gender Identity Not on file Sexual Orientation Not on file documented as of this encounter Miscellaneous Notes * Telephone Encounter - Chantel Ziegler - 01/29/2021 1:35 PM CST Pt informed script sent to [facility] as requested. DRAWER FINISHER * Telephone Encounter - Christa Bueno PA - 01/29/2021 12:27 PM FILE DRAWER FINISHER Rx sent to [facility]. DRAWER FINISHER * Telephone Encounter - Chantel Ziegler - 01/29/2021 11:45 AM CST Pt left vm stating she forgot to ask for a Zofran script last week when she was here. Said it wouldbe a refill but I don't see it ion her med list. If so, she wants it sent to [facility]. DRAWER FINISHER documented in this encounter Plan of Treatment Not on file documented as of this encounter Visit Diagnoses Not on filedocumented in this encounter Care Teams Bale Sewer Relationship Specialty Start Date End Date Kevin Bowles MD [facility] [address] [place] [address] PCP - General 06/19/16 01/16/24 Eric Crowder MD [address] [facility] [address] [place] [address] Rheumatology 01/18/17 documented as of this encounter
--- OUTSIDE RECORDS SUMMARY | 2024-04-01 11:19 | XMS_ITS | Encounter Summary ---
Author Organization [facility] Address [address] [place] [address] Phone Care Team Providers Care Tele Rn Name Role Phone Kevin Bowles MD Primary Care Provider [phone] Eric Crowder MD Unavailable [phone] Reason for Visit * Reason Comments Arthritis Encounter Details Date Type Department Care Team (Latest Contact Info) Description 05/31/2019 11:15 AM CDT Office Visit [facility] [address] [place] [phone] Christa Bueno PA [address] [place] [address] 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/HCC) (Primary Dx); half-way current use 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 Social History Tobacco Use Types Packs/Day Years Used Date Smoking Tobacco: Never Alcohol Use Standard Drinks/Week Comments Yes 0 (1 standard drink = 0.6 oz pur e alcohol) Comments Unknown Sex and Gender Information Value Date Recorded Sex Assigned at Not on file Legal Sex Female 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 Gender Identity Not on file Sexual Orientation Not on file documented as of this encounter Last Filed Vital Signs Vital Sign Reading Time Taken Comments Blood Pressure 126/80 05/31/2019 11:17 AM CDT Pulse 94 05/31/2019 11:17 AM CDT Temperature - - Respiratory Rate - - Oxygen Saturation - - Inhaled Oxygen Concentration - - Weight 138.8 kg (306 lb) 05/31/2019 11:17 AM CDT Height 162.6 cm (5' 4 ) 05/31/2019 11:17 AM CDT Body Mass Index 52.52 05/31/2019 11:17 AM CDT documented in this encounter Ordered Prescriptions Prescription Sig Dispense Quantity Refills Last Filled Start Date End Date ondansetron (ZOFRAN) 4 mg tablet Take 1 tablet (4 mg total) by mouth every 8 (eight) hours as needed for nausea or vomiting 30 tablet 05/31/2019 0 documented in this encounter Progress Notes * Christa Willis PA - 05/31/2019 11:15 AM CDT Images from the original note were not included. Subjective/Objective Patient ID: Monica Buckner is a 48 y.o. female. Chief Complaint Arthritis HPI Returns for routine follow up. Patient had lots of stress in March - early april. Both of her elderly dogs within5 weeks of each other. Patient noted increased generalized pain. Denies fevers, infections, rashes, mouth sores, [...] Skin: Negative for rash. Vitals: Vitals BP 126/80 Pulse 94 Ht 162.6 cm (5' 4 ) Wt (!) 138.8 kg (306 lb) BMI 52.52 kg/m?? Body mass index is 52.52 kg/m??. Physical Exam Constitutional: oriented to person, [...] Lab Results Component Value Date WBC 4.9 05/29/2019 HGB 13.1 05/29/2019 HCT 39.6 05/29/2019 MCV 88.6 05/29/2019 Lab Results Component Value Date GLUCOSE 101 (H) 05/29/2019 CALCIUM 9.6 05/29/2019 SODIUM 140 05/29/2019 POTASSIUM 4.1 05/29/2019 CO2 29 05/29/2019 CHLORIDE 104 05/29/2019 BUNSER 9 05/29/2019 CREATININE 0.70 05/29/2019 Lab Results Component Value Date ALT 24 05/29/2019 AST 19 05/29/2019 ALKPHOS 77 05/29/2019 BILITOT 0.6 05/29/2019 Lab Results Component Value Date SEDRATE 17 05/29/2019 Lab Results Component Value Date CRP 11.6 (H) 05/29/2019 Patient Global Assessment: 40 (mm) Provider Global Assessment: 30 (mm) CDAI: 10 In remission: 0-3 Low: 4-10 Moderate: 11-22 High: 23 or > Assessment/Plan Diagnoses and all orders for this visit: 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/HCC) (Primary) Assessment & Plan: Low cdai. No obvious synovitis with some [...] up in 3 months. Sooner if needed. half-way current use 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 Assessment & Plan: Routine labs via standing order. Eye exam UTD. Other orders - ondansetron (ZOFRAN) 4 mg tablet; Take 1 tablet (4 mg total) by mouth every 8 (eight) hours as needed for nausea or vomiting Cosigned by Eric Crowder MD at 06/01/2019 9:21 AM CDT documented in this encounter Miscellaneous Notes * Assessment & Plan Note - Christa Willis PA - 05/31/2019 11:33 AM CDTAssociated Problem(s): 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/HCC) (HCC) Low cdai. No obvious synovitis with some [...] Plan Note - Christa Willis PA - 05/31/2019 11:01 AM CDTAssociated Problem(s): half-way current use 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 Routine labs via standing order. Eye exam UTD. 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 montelukast (SINGULAIR) 10 mg tablet Take 1 tablet (10 mg total) by mouth nightly added in this encounter Care Teams Tele Rn Relationship Specialty Start Date End Date Kevin Bowles MD [facility] [address] [place] [address] PCP - General 06/19/16 01/16/24 Eric Crowder MD [address] [facility] [address] [place] [address] Rheumatology 01/18/17 documented as of this encounter
--- OUTSIDE RECORDS SUMMARY | 2024-04-01 11:19 | XMS_ITS | Encounter Summary ---
Author Organization [facility] Facility Care Team Providers Care Core Cutter And Reamer Name Role Phone Kevin Bowles MD Primary Care Provider [phone] Eric Crowder MD Unavailable [phone] Encounter Details Date Type Department Care Team (Latest Contact Info) Description 03/01/2019 Travel Social History Tobacco Use Types Packs/Day Years Used Date Smoking Tobacco: Never Alcohol Use Standard Drinks/Week Comments Yes 0 (1 standard drink = 0.6 oz pur e alcohol) Comments Unknown Sex and Gender Information Value Date Recorded Sex Assigned at Not on file 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
--- OUTSIDE RECORDS SUMMARY | 2024-04-01 11:19 | XMS_ITS | Encounter Summary ---
Author Organization [facility] Address [address] [place] [address] Phone Care Team Providers Care Composition Floor Setter Name Role Phone Kevin Bowlse MD Primary Care Provider [phone] Eric Crowder MD Unavailable [phone] Reason for Referral * Diagnostic Imaging (Routine) - Closed Specialty Diagnoses / Procedures Referred By Contac t Referred To Contact Diagnoses Right shoulder pain, unspecified chronicity Procedures XR Shoulder Right 2 or More Views Kian Perales MD [address] [facility] [place] [address] Phone: tel: fax: [address] [address] Referral ID Status Reason Start Date Expiration Date Visits Re quested Visits Authorized [id number] Closed 02/18/2021 03/20/2022 1 1 STANT CHIEF ENGINEER Encounter Details Date Type Department Care Team (Late st Contact Info) Description 02/18/2021 Orders Only [facility] Orthopaedic Surgery [address] [facility] 12th [place] [address] [place] [phone] Kian Perales MD [address] [facility] [place] [address] Right shoulder pain, unspecified chronicity (Primary Dx) Social History Tobacco Use Types Packs/Day Years Used Date Smoking Tobacco: Never Alcohol Use Standard Drinks/Week Comments Yes 0 (1 standard drink = 0.6 oz pur e alcohol) Comments Unknown Sex and Gender Information Value Date Recorded Sex Assigned at Not on file Legal Sex Female 9:01 PM ASSISTANT CHIEF ENGINEER Gender Identity Not on file Sexual Orientation Not on file documented as of this encounter Plan of Treatment Not on file documented as of this encounter Results * XR Shoulder Right 2 or More Views (02/24/2021 11:12 AM ASSISTANT CHIEF ENGINEER) Anatomical Region Laterality Modality Upper Extremities, Shoulder Right Comp uted Radiography 02/24/2021 2:18 PM ASSISTANT CHIEF ENGINEER Impressions 02/24/2021 2:18 PM ASSISTANT CHIEF ENGINEER 1. Mild right acromioclavicular osteoarthritis. Dictated by: Jeremias Mcdonald The radiology attending physician has personally reviewed this study, and had reviewed and/or edited this written report and agrees with it. Electronically signed by: Tdod Simpson M.D. Narrative 02/24/2021 2:18 PM ASSISTANT CHIEF ENGINEER EXAMINATION: XR SHOULDER RIGHT 2 OR MORE VIEWS. HISTORY: Right shoulder pain. FINDINGS: 4 views of the right shoulder submitted for interpretation without priors available for comparison. There is no fracture. ??Alignment is normal. ??The glenohumeral joint space is normal. ??There is mild narrowing of the acromioclavicular joint. Procedure Note Todd Simpson MD - 02/24/2021 EXAMINATION: XR SHOULDER RIGHT 2 OR MORE VIEWS. HISTORY: Right shoulder pain. FINDINGS: 4 views of the right shoulder submitted for interpretation without priors available for comparison. There is no fracture. Alignment is normal. The glenohumeral joint space is normal. There is mild narrowing of the acromioclavicular joint. IMPRESSION: 1. Mild right acromioclavicular osteoarthritis. Dictated by: Jeremias Mcdonald The radiology attending physician has personally reviewed this study, and had reviewed and/or edited this written report and agrees with it. Electronically signed by: Todd Simpson M.D. Kian Perales MD IMG XR PROCEDURES Final Result documented in this encounter Visit Diagnoses Diagnosis Right shoulder pain, unspecified chronicity- Primary Right shoulder pain, unspecified chronicity documented in this encounter Care Teams Composition Floor Setter Relationship Specialty Start Date End Date Kevin Bowles MD [facility]7 [facility] [address] [place] [address] PCP - General 06/19/16 01/16/24 Eric Crowder MD [address] [facility] [address] [place] [address] Rheumatology 01/18/17 documented as of this encounter
--- OUTSIDE RECORDS SUMMARY | 2024-04-01 11:19 | XMS_ITS | Encounter Summary ---
Author Organization [facility] Healthcare Address [address] [place] [address] Care Team Providers Care Fagoter Name Role Phone Kevin Bowles MD Primary Care Provider [phone] Eric Crowder MD Unavailable [phone] Reason for Referral * Diagnostic Imaging (Routine) - Closed Specialty Diagnoses / Procedures Referred By Contac t Referred To Contact Diagnoses Right shoulder pain, unspecified chronicity Procedures XR Shoulder Right 2 or More Views Kian Perales MD [address] [place] [address] Phone: tel: fax: [address] [address] Referral ID Status Reason Start Date Expiration Date Visits Re quested Visits Authorized [id number] Closed 02/18/2021 03/20/2022 1 1 TE PILOT OPERATOR Reason for Visit * Diagnostic Imaging (Routine) - Closed Specialty Diagnoses / Procedures Referred By Contac t Referred To Contact Diagnoses Right shoulder pain, unspecified chronicity Procedures XR Shoulder Right 2 or More Views Kian Perales MD [address] [place] [address] Phone: tel: fax: [address] [address] Referral ID Status Reason Start Date Expiration Date Visits Re quested Visits Authorized [id number] Closed 02/18/2021 03/20/2022 1 1 Encounter Details Date Type Department Care Team (Latest Contact Info) Description 02/24/2021 11:00 AM REMOTE PILOT OPERATOR - 02/24/2021 11:59 PM REMOTE PILOT OPERATOR Hospital Encounter [facility] [address] [place] [address] Kian Perales MD [address] [facility] [address] [place] [address] Right shoulder pain, unspecified chronicity Discharge Disposition: Discharge to home or self care Social History Tobacco Use Types Packs/Day Years Used Date Smoking Tobacco: Never Alcohol Use Standard Drinks/Week Comments Yes 0 (1 standard drink = 0.6 oz pur e alcohol) Comments Unknown Sex and Gender Information Value Date Recorded Sex Assigned at Not on file Legal Sex Female 9:01 PM REMOTE PILOT OPERATOR Gender Identity Not on file Sexual [...] one tab daily 90 tablet 1 01/24/2021 05/21/2021 folic acid (FOLVITE) 1 mg tablet Take 1 tablet (1 mg total) by mouth daily 05/31/2018 02/02/2024 hydrOXYchloroQUI NE (PLAQUENIL) 200 mg tabletIndication s:Connective Tissue Disease,auto immune disease Take 1 tablet (200 mg total) by mouth 2 (two) times a day 180 tablet 1 07/10/2020 05/21/2021 hydrOXYchloroQUI NE (PLAQUENIL) 200 mg tablet Take [...] every 7 days 96 tablet 1 01/24/2021 05/21/2021 methotrexate 2.5 mg tablet TAKE 6 TABLETS BY MOUTH ONCE WEEKLY 04/25/2018 12/14/2022 ondansetron (ZOFRAN) 8 mg tablet Take 1 tablet (8 mg total) by mouth every 8 (eight) hours as needed for nausea or vomiting 12 tablet 1 01/29/2021 05/30/2021 PROAIR HFA 90 mcg/actuation inhaler 03/24/2017 12/30/2023 traZODone (DESYREL) 50 mg tablet Take 50 mg by mouth nightly. 12/14/2022 documented as of this encounter Discharge Disposition Disposition Code Departure Means Destination Discharge to home or self care documented in this encounter Plan of Treatment Not on file documented as of this encounter Procedures Procedure Name Priority Date/Time Associated Diagnosis Comments XR SHOULDER RIGHT 2 OR MORE VIEWS Schedule Routine, Read Routine (OP Routine) 02/24/2021 11:12 AM REMOTE PILOT OPERATOR Right shoulder pain, unspecified chronicity documented in this encounter Results * XR Shoulder Right 2 or More Views (02/24/2021 11:12 AM REMOTE PILOT OPERATOR) Anatomical Region Laterality Modality Upper Extremities, Shoulder Right Comp uted Radiography 02/24/2021 2:18 PM REMOTE PILOT OPERATOR Impressions 02/24/2021 2:18 PM REMOTE PILOT OPERATOR 1. Mild right acromioclavicular osteoarthritis. Dictated by: Jeremias Mcdonald The radiology attending physician has personally reviewed this study, and had reviewed and/or edited this written report and agrees with it. Electronically signed by: Todd Simpson M.D. Narrative 02/24/2021 2:18 PM REMOTE PILOT OPERATOR EXAMINATION: XR SHOULDER RIGHT 2 OR MORE [...] Visit Diagnoses Diagnosis Right shoulder pain, unspecified chronicity documented in this encounter Care Teams Fagoter Relationship Specialty Start Date End Date Kevin Bowles MD [facility]7 [facility] [address] [address] PCP - General 06/19/16 01/16/24 Eric Crowder MD [address] [facility] [address] [place] [address] Rheumatology 01/18/17 documented as of this encounter
--- OUTSIDE RECORDS SUMMARY | 2024-04-01 11:19 | XMS_ITS | Encounter Summary ---
Author Organization [facility] Address [address] [place] [address] Phone Care Team Providers Care Roller Skater Name Role Phone Kevin Bowles MD Primary Care Provider [phone] Eric Crowder MD Unavailable [phone] Reason for Visit * Diagnostic Imaging (Routine) - Closed Specialty Diagnoses / Procedures Referred By Contac t Referred To Contact Diagnoses 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/HCC) (HCC) Procedures US Hand Complete Christa Bueno PA [address] [place] [address] Phone: tel: fax: External Order Referral ID Status Reason Start Date Expiration Date Visits Re quested Visits Authorized [id number] Closed 05/21/2021 06/20/2022 1 1 Encounter Details Date Type Department Care Team (Latest Contact Info) Description 05/29/2021 1:00 PM FARM MANAGER - 05/29/2021 11:59 PM FARM MANAGER Hospital Encounter [facility] [address] [place] [address] Discharge Disposition: Discharge to home or self care Social History Tobacco Use Types Packs/Day Years Used Date Smoking Tobacco: Never Alcohol Use Standard Drinks/Week Comments Yes 0 (1 standard drink = 0.6 oz pur e alcohol) Comments Unknown Sex and Gender Information Value Date Recorded Sex Assigned at Not on file Legal Sex Female 9:01 PM FARM MANAGER Gender Identity Not on file Sexual [...] Take one tab daily 90 tablet 1 05/21/2021 08/28/2021 folic acid (FOLVITE) 1 mg tablet Take 1 tablet (1 mg total) by mouth daily 05/31/2018 02/02/2024 hydrOXYchloroQUI NE (PLAQUENIL) 200 mg tabletIndication s:Connective Tissue Disease,auto immune disease Take 1 tablet (200 mg total) by mouth 2 (two) times a day 180 tablet 1 05/21/2021 08/28/2021 hydrOXYchloroQUI NE (PLAQUENIL) 200 mg tablet Take 1 tablet (200 mg total) by mouth 2 (two) times a day 11/12/2016 12/14/2022 ibuprofen (ADVIL,MOTRIN) 200 mg tablet take 1 tablet by oral route every 6 hours as needed with food 0 0 06/03/2015 12/14/2022 methotrexate 2.5 mg tabletIndication s:Rheumatoid Arthritis Take 8 tablets (20 mg total) by mouth every 7 days 96 tablet 1 05/21/2021 08/28/2021 methotrexate 2.5 mg tablet TAKE 6 TABLETS BY MOUTH ONCE WEEKLY 04/25/2018 12/14/2022 ondansetron (ZOFRAN) 8 mg tablet Take 1 tablet (8 mg total) by mouth every 8 (eight) hours as needed for nausea or vomiting 12 tablet 1 01/29/2021 05/30/2021 predniSONE (DELTASONE) 20 mg tablet Take three [...] Procedure Name Priority Date/Time Associated Diagnosis Comments SCAN - RADIOLOGY/IMAGING 05/29/2021 1:01 PM FARM MANAGER documented in this encounter Results * SCAN - RADIOLOGY/IMAGING (05/29/2021 1:01 PM FARM MANAGER) Anatomical Region Laterality Modality Ultrasound us Provider Scanning Final Result documented in this encounter Visit Diagnoses Not on filedocumented in this encounter Care Teams Roller Skater Relationship Specialty Start Date End Date Kevin Bowles MD [facility] [facility] [address] [place] [address] PCP - General 06/19/16 01/16/24 Eric Crowder MD [address] [place] [address] Rheumatology 01/18/17 documented as of this encounter
--- OUTSIDE RECORDS SUMMARY | 2024-04-01 11:19 | XMS_ITS | Encounter Summary ---
Author Organization [facility] Address [address] [place] [address] Phone Care Team Providers Care Chassis Mechanic Name Role Phone Kevin Bowles MD Primary Care Provider [phone] Eric Crowder MD Unavailable Encounter Details Date Type Department Care Team (Latest Contact Info) Description 10/09/2020 11:15 AM CDT Office Visit [facility] [address] [place] [address] Christa Bueno PA [address] [place] [address] 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/HCC) (HCC) (Primary Dx); watermelon inspector current use 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 Social History Tobacco Use Types Packs/Day Years Used Date Smoking Tobacco: Never Alcohol Use Standard Drinks/Week Comments Yes 0 (1 standard drink = 0.6 oz pur e alcohol) Comments Unknown Sex and Gender Information Value Date Recorded Sex Assigned at Not on file Legal Sex Female 9:01 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 Gender Identity Not on file Sexual Orientation Not on file documented as of this encounter Last Filed Vital Signs Vital Sign Reading Time Taken Comments Blood Pressure 116/76 10/09/2020 11:01 AM CDT Pulse 74 10/09/2020 11:01 AM CDT Temperature 36.6 ??C (97.9 ??F) 10/09/2020 11:01 AM C DT Respiratory Rate - - Oxygen Saturation 97% 10/09/2020 11:01 AM CDT Inhaled Oxygen Concentration - - Weight 139.4 kg (307 lb 4 oz) 10/09/2020 11:01 A M CDT Height - - Body Mass Index 52.74 07/10/2020 12:16 PM CDT documented in this encounter Progress Notes * Christa Bueno PA - 10/09/2020 11:15 AM CDT Images from the original note were not included. Subjective/Objective Patient ID: Monica Buckner is a 50 y.o. female. Chief Complaint Arthritis HPI Returns for routine follow up. Has been splitting MTX dosing 4 tabs PM and then next AM due to nausea. Has not picked up zofran 8mg daily yet from pharmacy. Had bronchitis in 08/2020 that lasted for 2 weeks. Had 2 rounds of abx and steroids. Considering moving to [place] or [place]. Will depend on where gets a job next. If so, she is wanting us to help find/recommend a mechanical engineer to transfer her care. Denies fevers, infections, rashes, mouth sores, cough, [...] Skin: Negative for rash. Vitals: Vitals BP 116/76 Pulse 74 Temp 36.6 ??C (97.9 ??F) Wt (!) 139.4 kg (307 lb 4 oz) SpO2 97% BMI 52.74 kg/m?? Body mass index is 52.74 kg/m??. Bold X is a current medication. Medication Taking/taken D/C or avoidance reason Hydroxychloroquine X ?? Methotrexate -Started 09/02/2017 X ?? Leflunomide ? Azathioprine ? Sulfasalazine x Inconsistent dosing so will dc CellCept ? Humira ? Enbrel ? Simponi [...] Lab Results Component Value Date WBC 5.7 10/04/2020 HGB 13.4 10/04/2020 HCT 39.9 10/04/2020 MCV 88.1 10/04/2020 Lab Results Component Value Date GLUCOSE 119 10/04/2020 CALCIUM 9.2 10/04/2020 SODIUM 142 10/04/2020 POTASSIUM 4.1 10/04/2020 CO2 29 10/04/2020 CHLORIDE 106 10/04/2020 BUNSER 12 10/04/2020 CREATININE 0.61 10/04/2020 Lab Results Component Value Date ALT 20 10/04/2020 AST 17 10/04/2020 ALKPHOS 62 10/04/2020 BILITOT 0.4 10/04/2020 Lab Results Component Value Date SEDRATE 11 10/04/2020 Lab Results Component Value Date CRP 8.7 (H) 10/04/2020 IMAGING: US right hand/wrist (06/02/17): Moderate synovitis [...] wrist, MCP, and PIP joints. Patient Global: 20 mm Provider Global: 20 mm CDAI: 6 In remission: 0-3 Low: 4-10 Moderate: 11-22 High: 23 or > Assessment/Plan Diagnoses and all orders for this visit: 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/HCC) (Primary) Assessment & Plan: Low cdai. Continues to have improved synovitis [...] up in 3 months. Sooner if needed. watermelon inspector current use 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 Assessment & Plan: Routine labs via standing order. Christa Bueno PA-C Cosigned by Eric Crowder MD at 10/10/2020 10:14 AM CDT documented in this encounter Miscellaneous Notes * Assessment & Plan Note - Christa Bueno PA - 10/09/2020 11:39 AM CDTAssociated Problem(s): 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/HCC) (HCC) Low cdai. Continues to have improved synovitis [...] Plan Note - Christa Bueno PA - 10/09/2020 11:39 AM CDTAssociated Problem(s): halfway current use 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 Routine labs via standing order. 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 Unspecified inflammatory polyarthropathy watermelon inspector current use 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 documented in this encounter Care Teams Chassis Mechanic Relationship Specialty Start Date End Date Kevin Bowles MD [facility] [facility] [address] [place] [address] PCP - General 06/19/16 01/16/24 Eric Crowder MD [address] [place] [address] Rheumatology 01/18/17 documented as of this encounter
--- OUTSIDE RECORDS SUMMARY | 2024-04-01 11:19 | XMS_ITS | Encounter Summary ---
Author Organization [facility] Address [address] [place] [address] Phone Care Team Providers Care Network Relations Consultant Name Role Phone Kevin Bowles MD Primary Care Provider [phone] Eric Crowder MD Unavailable [phone] Encounter Details Date Type Department Care Team (Late st Contact Info) Description 02/25/2021 Telephone [facility] 6th [place] [address] [place] [address] Izabela Mohan RMA Social History Tobacco Use Types Packs/Day Years Used Date Smoking Tobacco: Never Alcohol Use Standard Drinks/Week Comments Yes 0 (1 standard drink = 0.6 oz pur e alcohol) Comments Unknown Sex and Gender Information Value Date Recorded Sex Assigned at Not on file Legal Sex Female 9:01 PM FEATHER DRYING 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 [address] [place] [address] PCP - General 06/19/16 01/16/24 Eric Crowder MD [address] [facility] [address] [place] [address] Rheumatology 01/18/17 documented as of this encounter
--- OUTSIDE RECORDS SUMMARY | 2024-04-01 11:19 | XMS_ITS | Encounter Summary ---
Author Organization [facility] Address [address] [place] [address] Phone Care Team Providers Care Fitness Professional Name Role Phone Kevin Bowles MD Primary Care Provider [phone] Eric Crowder MD Unavailable Encounter Details Date Type Department Care Team (Late st Contact Info) Description 12/12/2020 Orders Only [facility] [address] [place] [address] Christa Bueno PA [address] [place] [address] Social History Tobacco Use Types Packs/Day Years Used Date Smoking Tobacco: Never Alcohol Use Standard Drinks/Week Comments Yes 0 (1 standard drink = 0.6 oz pur e alcohol) Comments Unknown Sex and Gender Information Value Date Recorded Sex Assigned at Not on file 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 15 tablet 12/12/2020 documented in this encounter Plan of Treatment Not on file documented as of this encounter Visit Diagnoses Not on filedocumented in this encounter Care Teams Fitness Professional Relationship Specialty Start Date End Date Kevin Bowles MD [facility] [address] [place] [address] PCP - General 06/19/16 01/16/24 Eric Crowder MD [address] [facility] [address] [place] [address] Rheumatology 01/18/17 documented as of this encounter
--- OUTSIDE RECORDS SUMMARY | 2024-04-01 11:19 | XMS_ITS | Encounter Summary ---
Author Organization [facility] Address [address] [place] [address] Phone Care Team Providers Care Structural Analyst Name Role Phone Kevin Bowles MD Primary Care Provider [phone] Eric Crowder MD Unavailable [phone] Encounter Details Date Type Department Care Team (Latest Contact Info) Description 11/30/2019 1:45 PM CDT Office Visit [facility] [address] [place] [address] Christa Bueno PA [address] [place] [address] 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/HCC) (Primary Dx); Dry skin; FDC current use 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 Social History Tobacco Use Types Packs/Day Years Used Date Smoking Tobacco: Never Alcohol Use Standard Drinks/Week Comments Yes 0 (1 standard drink = 0.6 oz pur e alcohol) Comments Unknown Sex and Gender Information Value Date Recorded Sex Assigned at Not on file 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 Gender Identity Not on file Sexual Orientation Not on file documented as of this encounter Last Filed Vital Signs Vital Sign Reading Time Taken Comments Blood Pressure 144/88 11/30/2019 4:56 PM CDT Pulse - - Temperature 36.7 ??C (98 ??F) 11/30/2019 4:56 PM CDT Respiratory Rate - - Oxygen Saturation - - Inhaled Oxygen Concentration - - Weight 142.4 kg (314 lb) 11/30/2019 4:56 PM CDT Height 162.6 cm (5' 4 ) 11/30/2019 4:56 PM CDT Body Mass Index 53.9 11/30/2019 4:56 PM CDT documented in this encounter Progress Notes * Christa Willis PA - 11/30/2019 1:45 PM CDT Images from the original note were not included. Subjective/Objective Patient ID: Monica Buckner is a 49 y.o. female. Chief Complaint Joint pain HPI Returns for routine follow up. Noticing dry, flaky skin on elbow and hands. Using lotion constantly to keep it moisturized. Normally only has dry skin in winter time. Grandmother had Grave's Dz and great grandmother had . Deniespersonal or FHx of psoriasis. Denies fevers, infections, rashes, mouth sores, cough, dyspnea, n/v. Joint pain today is 10. AM stiffness = 15-20 minutes Review of Systems Constitutional: Positive for fatigue. Negative for chills and fever. HENT: Negative for congestion and mouth sores. Respiratory: Negative for cough and shortness of breath. Cardiovascular: Negative for chest pain. Gastrointestinal: Negative for abdominal pain, diarrhea, nausea and vomiting. Musculoskeletal: Positive for arthralgias. Negative for myalgias. Skin: Negative for rash. Vitals: Vitals BP 144/88 Temp 36.7 ??C (98 ??F) Ht 162.6 cm (5' 4 ) Wt (!) 142.4 kg (314 lb) BMI 53.90 kg/m?? Body mass index is 53.9 kg/m??. Bold X is a current medication. Medication Taking/taken D/C or avoidance reason Hydroxychloroquine X Methotrexate -Started 09/02/2017 X Leflunomide Azathioprine Sulfasalazine X CellCept Humira Enbrel Simponi Cimzia Simponi aria [...] oriented to person, place, and time. Skin: No rash noted. Dry skin on bilateral forearms. No plaques or erythema. No scaling. Psychiatric: normal mood and affect. speech is normal and behavior is normal. Cognition and memory are normal. Labs Lab Results Component Value Date WBC 5.4 11/24/2019 HGB 13.5 11/24/2019 HCT 39.2 11/24/2019 MCV 90.3 11/24/2019 Lab Results Component Value Date GLUCOSE 103 (H) 11/24/2019 CALCIUM 9.3 11/24/2019 SODIUM 139 11/24/2019 POTASSIUM 4.2 11/24/2019 CO2 29 11/24/2019 CHLORIDE 104 11/24/2019 BUNSER 9 11/24/2019 CREATININE 0.74 11/24/2019 Lab Results Component Value Date ALT 23 11/24/2019 AST 19 11/24/2019 ALKPHOS 66 11/24/2019 BILITOT 0.6 11/24/2019 Lab Results Component Value Date SEDRATE 19 11/24/2019 Lab Results Component Value Date CRP 9.6 (H) 11/24/2019 Patient Global: 30 mm Provider Global: 30 mm CDAI: 11 In remission: 0-3 Low: 4-10 [...] up in 3 months. Sooner if needed. Dry skin Assessment & Plan: Notes dry skin on forearms, elbows and occasionally behind her ears. Normally only gets this in thewinter. Using lotion constantly with little benefit. Denies personal or FHx of psoriasis. Will follow with pcp for further evaluation. Could always consider evaluation by dermatology if symptoms worsen. FDC current use 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 Assessment & Plan: Routine labs via standing order. Due for eye exam. Christa Willis PA-C Cosigned by Eric Crowder MD at 11/30/2019 5:14 PM CDT documented in this encounter Miscellaneous Notes * Assessment & Plan Note - Christa Willis PA - 11/30/2019 4:58 PM CDTAssociated Problem(s): Dry skin Notes dry skin on forearms, elbows and occasionally behind her ears. Normally only gets this in thewinter. Using lotion constantly with little benefit. Denies personal or FHx of psoriasis. Will follow with pcp for further evaluation. Could always consider evaluation by dermatology if symptoms worsen. * Assessment & Plan Note - Christa Willis PA - 11/30/2019 4:57 PM CDTAssociated Problem(s): 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/HCC) [...] Plan Note - Christa Willis PA - 11/30/2019 1:48 PM CDTAssociated Problem(s): FDC current use 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 Routine labs via standing order. Due for eye exam. 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 [facility] [address] [place] [address] PCP - General 06/19/16 01/16/24 Eric Crowder MD [address] [facility] [address] [place] [address] Rheumatology 01/18/17 documented as of this encounter
--- OUTSIDE RECORDS SUMMARY | 2024-04-01 11:19 | XMS_ITS | Encounter Summary ---
Author Organization [facility] Address [address] [place] [address] Phone Care Team Providers Care Medical Biller/Coder Name Role Phone Kevin Bowles MD Primary Care Provider [phone] Eric Crowder MD Unavailable [phone] Encounter Details Date Type Department Care Team (Latest Contact Info) Description 07/10/2020 11:15 AM CDT Office Visit [facility] [address] [place] [address] Christa Bueno PA [address] [place] [address] 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/HCC) (Primary Dx); custodial current use 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 Social History Tobacco Use Types Packs/Day Years Used Date Smoking Tobacco: Never Alcohol Use Standard Drinks/Week Comments Yes 0 (1 standard drink = 0.6 oz pur e alcohol) Comments Unknown Sex and Gender Information Value Date Recorded Sex Assigned at Not on file 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 Gender Identity Not on file Sexual Orientation Not on file documented as of this encounter Last Filed Vital Signs Vital Sign Reading Time Taken Comments Blood Pressure 134/70 07/10/2020 12:16 PM CDT Pulse - - Temperature 36.7 ??C (98.1 ??F) 07/10/2020 12:16 PM C DT Respiratory Rate - - Oxygen Saturation - - Inhaled Oxygen Concentration - - Weight 143.3 kg (316 lb) 07/10/2020 12:16 PM CDT Height 162.6 cm (5' 4 ) 07/10/2020 12:16 PM CDT Body Mass Index 54.24 07/10/2020 12:16 PM CDT documented in this encounter Ordered Prescriptions Prescription Sig Dispense Quantity Refills Last Filled Start Date End Date folic acid (FOLVITE) 1 mg tablet Take 1 tablet (1 mg total) by mouth daily Take one tab daily 90 tablet 1 07/10/2020 1 methotrexate 2.5 mg tabletIndications: Rheumatoid Arthritis Take 8 tablets (20 mg total) by mouth every 7 days 96 tablet 1 07/10/2020 1 hydrOXYchloroQUINE (PLAQUENIL) 200 mg tabletIndications: Connective Tissue Disease,auto immune disease Take 1 tablet (200 mg total) by mouth 2 (two) times a day 180 tablet 1 07/10/2020 2 ondansetron (ZOFRAN) 8 mg tablet Take 1 tablet (8 mg total) by mouth every 8 (eight) hours as needed for nausea or vomiting 30 tablet 07/10/2020 1 documented in this encounter Progress Notes * Christa Bueno PA - 07/10/2020 11:15 AM CDT Images from the original note were not included. Subjective/Objective Patient ID: Monica Buckner is a 50 y.o. female. Chief Complaint Arthritis HPI Returns for routine follow up. Has been feeling better. Still feels nausea from MTX 8 tabs and wanting to increase zofran 8mg instead of 4mg. Traveled to [place] and [place] and felt amazing. Had minimal joint pain and fatigue. Was able to be really active. Denies fevers, infections, rashes, mouth sores, cough, [...] Skin: Negative for rash. Vitals: Vitals BP 134/70 Temp 36.7 ??C (98.1 ??F) Ht 162.6 cm (5' 4 ) Wt (!) 143.3 kg (316 lb) BMI 54.24 kg/m?? Body mass index is 54.24 kg/m??. Bold X is a current medication. [...] Labs Lab Results Component Value Date WBC 6.4 07/08/2020 HGB 15.0 07/08/2020 HCT 44.5 07/08/2020 MCV 88.5 07/08/2020 Lab Results Component Value Date GLUCOSE 91 07/08/2020 CALCIUM 9.8 07/08/2020 SODIUM 142 07/08/2020 POTASSIUM 3.8 07/08/2020 CO2 30 07/08/2020 CHLORIDE 106 07/08/2020 BUNSER 10 07/08/2020 CREATININE 0.70 07/08/2020 Lab Results Component Value Date ALT 26 07/08/2020 AST 20 07/08/2020 ALKPHOS 75 07/08/2020 BILITOT 0.5 07/08/2020 Lab Results Component Value Date SEDRATE 11 07/08/2020 Lab Results Component Value Date CRP 8.6 (H) 07/08/2020 Patient Global: 20 mm Provider Global: 20 mm CDAI: 8 In remission: 0-3 Low: 4-10 Moderate: 11-22 [...] HCQ 400mg daily.Increase zofran 8mg q8h prn N/Vwhich she usually only takes on the day she doses her MTX. Advised patient of risk of QT prolongation with zofran and HCQ. Recent labs reviewed with patient. Continue routine eye exams to monitor forplaquenil toxicity. Follow up in 3 months. Sooner if needed. 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 Due for eye exam. Other orders - ondansetron (ZOFRAN) 8 mg tablet; Take 1 tablet (8 mg total) by mouth every 8 (eight) hours as needed for nausea or vomiting - hydrOXYchloroQUINE (PLAQUENIL) 200 mg tablet; Take 1 tablet (200 mg total) by mouth 2 (two) timesa day - methotrexate 2.5 mg tablet; Take 8 tablets (20 mg total) by mouth every 7 days - folic acid (FOLVITE) 1 mg tablet; Take 1 tablet (1 mg total) by mouth daily Take one tab daily Christa Bueno PA-C Cosigned by Eric Crwoder MD at 07/11/2020 10:57 AM CDT documented in this encounter Miscellaneous Notes * Assessment & Plan Note - Christa Bueno PA - 07/10/2020 12:16 PM CDTAssociated Problem(s): 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/HCC) (HCC) Low cdai. Continues to have improved synovitis and tenderness on peripheral exam today since increasing MTX. Stopped SSZ due to inconsistent dosing. Noticing worsening nausea with MTX 20mg and requesting increased zofran dose. Continue MTX 20mg weekly, folic acid 1mg daily, and HCQ 400mg daily.Increase zofran 8mg q8h prn N/Vwhich she usually only takes on the day she doses her MTX. Advised patient of risk of QT prolongation with zofran and HCQ. Recent labs reviewed with patient. Continue routine eye exams to monitor forplaquenil toxicity. Follow up in 3 months. Sooner if needed. * Assessment & Plan Note - Christa Bueno PA - 07/10/2020 11:01 AM CDTAssociated Problem(s): custodial current use 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 Routine labs via standing order. Due for eye exam. 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 Unspecified inflammatory polyarthropathy custodial current use 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 documented in this encounter Discontinued Medications Medication Sig Discontinue Reason Start Date End Da te ondansetron (ZOFRAN) 4 mg tablet Take 1 tablet (4 mg total) by mouth every 8 (eight) hours as needed for nausea or vomiting 06/17/2020 07/10/2020 hydrOXYchloroQUINE (PLAQUENIL) 200 mg tabletIndications:Conne ctive Tissue Disease,auto immune disease Take 1 tablet (200 mg total) by mouth 2 (two) times a day Reorder 02/29/2020 07/10/2020 methotrexate 2.5 mg tabletIndications:Rheum atoid Arthritis Take 8 tablets (20 mg total) by mouth every 7 days Reorder 03/01/2020 07/10/2020 folic acid (FOLVITE) 1 mg tablet Take 1 tablet (1 mg total) by mouth daily Take one tab daily Reorder 02/01/2020 07/10/2020 documented as of this encounter Care Teams Medical Biller/Coder Relationship Specialty Start Date End Date Kevin Bowles MD [facility] [address] [place] [address] PCP - General 06/19/16 01/16/24 Eric Crowder MD [address] [facility] [address] [place] [address] Rheumatology 01/18/17 documented as of this encounter
--- OUTSIDE RECORDS SUMMARY | 2024-04-01 11:19 | XMS_ITS | Encounter Summary ---
Author Organization [facility] Address [address] [place] [address] Phone Care Team Providers Care Wash Driller Helper Name Role Phone Kevin Bowles MD Primary Care Provider [phone] Eric Crowder MD Unavailable [phone] Encounter Details Date Type Department Care Team (Late st Contact Info) Description 01/29/2021 Orders Only [facility] [address] [place] [address] Christa Bueno PA [address] [place] [address] Social History Tobacco Use Types Packs/Day Years Used Date Smoking Tobacco: Never Alcohol Use Standard Drinks/Week Comments Yes 0 (1 standard drink = 0.6 oz pur e alcohol) Comments Unknown Sex and Gender Information Value Date Recorded Sex Assigned at Not on file 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 Gender Identity Not on file Sexual Orientation Not on file documented as of this encounter Ordered Prescriptions Prescription Sig Dispense Quantity Refills Last Filled Start Date End Date ondansetron (ZOFRAN) 8 mg tablet Take 1 tablet (8 mg total) by mouth every 8 (eight) hours as needed for nausea or vomiting 12 tablet 1 01/29/2021 2 documented in this encounter Plan of Treatment Not on file documented as of this encounter Visit Diagnoses Not on filedocumented in this encounter Discontinued Medications Medication Sig Discontinue Reason Start Date End Da te ondansetron (ZOFRAN) 8 mg tablet Reorder 11/07/2020 01/29/2021 documented as of this encounter Historical Medications * This list may reflect changes made after this encounter. Medication Sig Dispense Quantity Refills Last Filled Start D ate End Date ondansetron (ZOFRAN) 8 mg tablet 11/07/2020 01/29/2021 added in this encounter Care Teams Wash Driller Helper Relationship Specialty Start Date End Date Kevin Bowles MD [facility] [address] [place] [address] PCP - General 06/19/16 01/16/24 Eric Crowder MD [address] [facility] [address] [place] [address] Rheumatology 01/18/17 documented as of this encounter
--- OUTSIDE RECORDS SUMMARY | 2024-04-01 11:19 | XMS_ITS | Encounter Summary ---
Author Organization [facility] Address [address] [place] [address] Phone Care Team Providers Care Data Acquisition Technician Name Role Phone Kevin Bowles MD Primary Care Provider [phone] Eric Crowder MD Unavailable [phone] Encounter Details Date Type Department Care Team (Late st Contact Info) Description 03/01/2020 Orders Only [facility] [address] [place] [address] Christa Bueno PA [address] [place] [address] Social History Tobacco Use Types Packs/Day Years Used Date Smoking Tobacco: Never Alcohol Use Standard Drinks/Week Comments Yes 0 (1 standard drink = 0.6 oz pur e alcohol) Comments Unknown Sex and Gender Information Value Date Recorded Sex Assigned at Not on file 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 Gender Identity Not on file Sexual Orientation Not on file documented as of this encounter Ordered Prescriptions Prescription Sig Dispense Quantity Refills Last Filled Start Date End Date methotrexate 2.5 mg tabletIndications: Rheumatoid Arthritis Take 8 tablets (20 mg total) by mouth every 7 days 96 tablet 1 03/01/2020 1 documented in this encounter Plan of Treatment Not on file documented as of this encounter Visit Diagnoses Not on filedocumented in this encounter Discontinued Medications Medication Sig Discontinue Reason Start Date End Da te methotrexate 2.5 mg tabletIndications:Rheuma toid Arthritis Take 8 tablets (20 mg total) by mouth every 7 days Take 6 Tablets by mouth once weekly Reorder 02/29/2020 03/01/2020 documented as of this encounter Care Teams Data Acquisition Technician Relationship Specialty Start Date End Date Kevin Bowles MD [facility] [address] [place] [address] PCP - General 06/19/16 01/16/24 Eric Crowder MD [address] [facility] [address] [place] [address] Rheumatology 01/18/17 documented as of this encounter
--- OUTSIDE RECORDS SUMMARY | 2024-04-01 11:19 | XMS_ITS | Encounter Summary ---
Author Organization [facility] Address [address] [place] [address] Phone Care Team Providers Care Mounting Machine Operator Name Role Phone Kevin Bowles MD Primary Care Provider [phone] Eric Crowder MD Unavailable [phone] Encounter Details Date Type Department Care Team (Late st Contact Info) Description 06/12/2019 Telephone [facility] [address] [place] [phone] Chantel Ziegler Social History Tobacco Use Types Packs/Day Years Used Date Smoking Tobacco: Never Alcohol Use Standard Drinks/Week Comments Yes 0 (1 standard drink = 0.6 oz pur e alcohol) Comments Unknown Sex and Gender Information Value Date Recorded Sex Assigned at Not on file 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 Also called [facility] back to let them know pt has been on SSZ for a long time & tolerates it well. * Telephone Encounter - Christa Willis PA - 06/12/2019 12:27 PM CDT She has been on SSZ for years so we know its okay for her to take. Is there another pharmacy she prefers that may have her meds in stock? * Telephone Encounter - Chantel Ziegler - 06/12/2019 12:13 PM CDT Pharmacy left stating pt has allergy to Toralac so should she be on the SSZ. Also reports the SSZ EC is on back order. So is the HCQ. How do you want to proceed? documented in this encounter Plan of Treatment Not on file documented as of this encounter Visit Diagnoses Not on filedocumented in this encounter Care Teams Mounting Machine Operator Relationship Specialty Start Date End Date Kevin Bowles MD [address] [place] [address] [facility] [address] [place] [address] PCP - General 06/19/16 01/16/24 Eric Crowder MD [address] [facility] [address] [place] [address] Rheumatology 01/18/17 documented as of this encounter
--- OUTSIDE RECORDS SUMMARY | 2024-04-01 11:19 | XMS_ITS | Encounter Summary ---
Author Organization [facility] Address [address] [place] [address] Phone Care Team Providers Care L D Rn Name Role Phone Kevin Bowles MD Primary Care Provider [phone] Eric Crowder MD Unavailable [phone] Reason for Visit * Reason Comments Arthritis Encounter Details Date Type Department Care Team (Latest Contact Info) Description 04/04/2020 1:30 PM MANUFACTURING SALES 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 Office Visit [facility] [address] [place] [phone] Christa Bueno PA [address] [place] [phone] 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/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) (Primary Dx); 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 Social History Tobacco Use Types Packs/Day Years Used Date Smoking Tobacco: Never Alcohol Use Standard Drinks/Week Comments Yes 0 (1 standard drink = 0.6 oz pur e alcohol) Comments Unknown Sex and Gender Information Value Date Recorded Sex Assigned at Not on file Legal Sex Female 9:01 PM MANUFACTURING SALES 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 Gender Identity Not on file Sexual Orientation Not on file documented as of this encounter Last Filed Vital Signs Vital Sign Reading Time Taken Comments Blood Pressure 138/82 04/04/2020 1:47 PM MANUFACTURING SALES 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 Pulse - - Temperature 36.7 ??C (98 ??F) 04/04/2020 1:47 PM MANUFACTURING SALES 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 Respiratory Rate - - Oxygen Saturation - - Inhaled Oxygen Concentration - - Weight 147 kg (324 lb) 04/04/2020 1:47 PM MANUFACTURING SALES 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 Height 162.6 cm (5' 4 ) 04/04/2020 1:47 PM MANUFACTURING SALES 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 Body Mass Index 55.61 04/04/2020 1:47 PM MANUFACTURING SALES 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 documented in this encounter Progress Notes * Christa Bueno PA - 04/04/2020 1:30 PM CST Images from the original note were not included. Subjective/Objective Patient ID: Monica Buckner is a 49 y.o. female. Chief Complaint Joint pain HPI Returns for routine follow up. Tolerating increased MTX. Notes improvement of overall pain and swelling. Notes improvement of painin her feet as well. Denies fevers, infections, rashes, mouth [...] Skin: Negative for rash. Vitals: Vitals BP 138/82 Temp 36.7 ??C (98 ??F) Ht 162.6 cm (5' 4 ) Wt (!) 147 kg (324 lb) BMI 55.61 kg/m?? Body mass index is 55.61 kg/m??. Bold X is a current medication. [...] Labs Lab Results Component Value Date WBC 7.6 02/29/2020 HGB 13.8 02/29/2020 HCT 40.9 02/29/2020 MCV 90.5 02/29/2020 Lab Results Component Value Date GLUCOSE 103 (H) 02/29/2020 CALCIUM 9.7 02/29/2020 SODIUM 140 02/29/2020 POTASSIUM 4.0 02/29/2020 CO2 30 02/29/2020 CHLORIDE 105 02/29/2020 BUNSER 14 02/29/2020 CREATININE 0.73 02/29/2020 Lab Results Component Value Date ALT 21 02/29/2020 AST 19 02/29/2020 ALKPHOS 78 02/29/2020 BILITOT 0.4 02/29/2020 Lab Results Component Value Date SEDRATE 17 02/29/2020 Lab Results Component Value Date CRP 12.1 (H) 02/29/2020 Patient Global: 20 mm Provider Global: 20 mm CDAI: 4 In remission: 0-3 Low: 4-10 Moderate: 11-22 High: 23 or > Assessment/Plan Diagnoses and all orders for this visit: 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/HCC) (Primary) Assessment & Plan: Low cdai. Improved synovitis and tenderness noted on peripheral exam today since increasing MTX last visit. Stopped SSZ after last visit due to inconsistent dosing. Continue MTX 20mg weekly, folic acid 1mg daily, and HCQ 400mg daily. Continue zofran 4mg q8h prn N/V which she usually only takes on the day she doses her MTX. Will check routine labs today. Continueroutine eye exams to monitor for plaquenil toxicity. Follow up in 3 months. Sooner if needed. Orders: - Comprehensive metabolic panel; Future - CBC with auto differential; Future - Erythrocyte sedimentation rate; Future - CRP (acute phase); Future skilled nursing current use 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 Assessment & Plan: Routine labs via standing order. Due for eye exam. Orders: - Comprehensive metabolic panel; Future - CBC with auto differential; Future - Erythrocyte sedimentation rate; Future - CRP (acute phase); Future Christa Willis PA-C Cosigned by Eric Crowder MD at 04/04/2020 5:06 PM MANUFACTURING SALES 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 FACTURING SALES 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 FACTURING SALES 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 documented in this encounter Miscellaneous Notes * Assessment & Plan Note - Christa Bueno PA - 04/04/2020 1:54 PM MANUFACTURING SALES 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 Associated Problem(s): 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/HCC) (HCC) Low cdai. Improved synovitis and tenderness noted on peripheral exam today since increasing MTX last visit. Stopped SSZ after last visit due to inconsistent dosing. Continue MTX 20mg weekly, folic acid 1mg daily, and HCQ 400mg daily. Continue zofran 4mg q8h prn N/V which she usually only takes on the day she doses her MTX. Will check routine labs today. Continueroutine eye exams to monitor for plaquenil toxicity. Follow up in 3 months. Sooner if needed. 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 Due for eye exam. FACTURING SALES 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 documented in this encounter Plan of Treatment Not on file documented as of this encounter Procedures Procedure Name Priority Date/Time Associated Diagnosis Comments ERYTHROCYTE SEDIMENTATION RATE Routine 08/22/2021 11:00 AM CDT CRP (ACUTE PHASE) Routine 08/22/2021 11: 00 AM CDT CBC WITH AUTO DIFFERENTIAL Routine 05/02/2021 2:00 PM MANUFACTURING SALES 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 ERYTHROCYTE SEDIMENTATION RATE Routine 05/02/2021 2:00 PM MANUFACTURING SALES 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 CRP (ACUTE PHASE) Routine 05/02/2021 2:0 0 PM MANUFACTURING SALES 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 COMPREHENSIVE METABOLIC PANEL Routine 05/02/2021 2:00 PM MANUFACTURING SALES 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 CBC WITH AUTO DIFFERENTIAL Routine 01/20/2021 3:24 PM CDT ERYTHROCYTE SEDIMENTATION RATE Routine 01/20/2021 3:24 PM CDT CRP (ACUTE PHASE) Routine 01/20/2021 3:2 4 PM CDT COMPREHENSIVE METABOLIC PANEL Routine 01/20/2021 3:24 PM CDT CBC WITH AUTO DIFFERENTIAL Routine 10/04/2020 11:03 AM CDT ERYTHROCYTE SEDIMENTATION RATE Routine 10/04/2020 11:03 AM CDT CRP (ACUTE PHASE) Routine 10/04/2020 11: 03 AM CDT COMPREHENSIVE METABOLIC PANEL Routine 10/04/2020 11:03 AM CDT CBC WITH AUTO DIFFERENTIAL Routine 07/08/2020 10:49 AM CDT ERYTHROCYTE SEDIMENTATION RATE Routine 07/08/2020 10:49 AM CDT CRP (ACUTE PHASE) Routine 07/08/2020 10: 49 AM CDT COMPREHENSIVE METABOLIC PANEL Routine 07/08/2020 10:49 AM CDT CBC WITH AUTO DIFFERENTIAL Routine 04/04/2020 1:58 PM MANUFACTURING SALES 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/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 ERYTHROCYTE SEDIMENTATION RATE Routine 04/04/2020 1:58 PM MANUFACTURING SALES 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/HCC) skilled nursing current use 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 CRP (ACUTE PHASE) Routine 04/04/2020 1:5 8 PM MANUFACTURING SALES 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/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 COMPREHENSIVE METABOLIC PANEL Routine 04/04/2020 1:58 PM MANUFACTURING SALES 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/HCC) skilled nursing current use 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 documented in this encounter Results * (ABNORMAL) CRP (acute phase) (08/22/2021 11:00 AM CDT) C-RP 9.8(H) <8.0 mg/L [facility] 08/22/2021 11:0 0 AM CDT 08/22/2021 11:01 AM CDT Christa JAY LAB BLOOD ORDERABLES Final Result [facility] [address] [place] [address] * Erythrocyte sedimentation rate (08/22/2021 11:00 AM CDT) Erythrocyte sedimentation rate 28 < OR = 30 mm/h [facility] 08/22/2021 11:0 0 AM CDT 08/22/2021 11:01 AM CDT Christa JAY LAB BLOOD ORDERABLES Final Result Performing Organization Address City/[facility]/ZIP Co de Phone Number [facility] [address] [place] [address] * (ABNORMAL) CRP (acute phase) (05/02/2021 2:00 PM MANUFACTURING SALES 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) Pathologist [facility] C-RP 10.0(H) <8.0 mg/L [facility] 05/02/2021 2:00 PM MANUFACTURING SALES 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 05/02/2021 2:01 PM MANUFACTURING SALES 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 Rere JAY LAB BLOOD ORDERAB LES Final Result Performing Organization Address City/[facility] Co de Phone Number [facility] [address] [place] [address] * CBC with auto differential (05/02/2021 2:00 PM MANUFACTURING SALES 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) [facility] WBC 5.5 3.8 - 10.8 Thousand/u L [facility] RBC, POC 4.78 3.80 - 5.10 Million/uL [facility] Hgb 13.8 11.7 - 15.5 g/dL [facility] Hct 41.7 35.0 - 45.0 % [facility] MCV 87.2 80.0 - 100.0 fL [facility] MCH 28.9 27.0 - 33.0 pg [facility] MCHC 33.1 32.0 - 36.0 g/dL [facility] Rdw 14.6 11.0 - 15.0 % [facility] Platelets 259 140 - 400 Thousand/u L [facility] MPV 9.7 7.5 - 12.5 fL [facility] Neutrophils, abs 2,926 1,500 - 7,800 cells/uL [facility] Lymphocytes, abs 1,881 850 - 3,900 cells/uL [facility] Monocyte abs 501 200 - 950 cells/uL [facility] Eosinophils, abs 171 15 - 500 cells/uL [facility] Basophils, abs 22 0 - 200 cells/uL [facility] Neutrophils 53.2 % [facility] Lymphocyte pct 34.2 % [facility] Monocytes 9.1 % [facility] Eosinophils 3.1 % [facility] Basophils 0.4 % [facility] 05/02/2021 2:00 PM MANUFACTURING SALES 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 05/02/2021 2:01 PM MANUFACTURING SALES 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 Rere Ana Carbone MD LAB BLOOD ORDERAB LES Final Result Performing Organization Address [facility] Co de Phone Number [facility] [address] [place] [address] * Erythrocyte sedimentation rate (05/02/2021 2:00 PM MANUFACTURING SALES 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) Pathologist [facility] Erythrocyte sedimentation rate 14 < OR = 20 mm/h [facility] 05/02/2021 2:00 PM MANUFACTURING SALES 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 05/02/2021 2:01 PM MANUFACTURING SALES 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 Reredave Carbone MD LAB BLOOD ORDERAB LES Final Result Performing Organization Address [facility] de Phone Number [facility] [address] [place] [address] * Comprehensive metabolic panel (05/02/2021 2:00 PM MANUFACTURING SALES 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) Pathologist [facility] Glucose 98 65 - 99 mg/dL [facility] Comment: ? Fasting reference interval BUN 11 7 - 25 mg/dL [facility] Creatinine 0.68 0.50 - 1.05 mg/dL [facility] Comment: For patients >49 years of age, the reference limit for Creatinine is approximately 13% higher for people identified as -Burmese. eGFR NON-AFR. MONEGASQUE 102 > OR = 60 mL/min/1 .73m2 [facility] EGFR 118 > OR = 60 mL/min/1 .73m2 [facility] BUN/creat ratio NOT APPLICABLE 6 - 22 (calc) [facility] Sodium 138 135 - 146 mmol/L [facility] Potassium, pl 4.1 3.5 - 5.3 mmol/L [facility] Chloride 103 98 - 110 mmol/L [facility] CO2 28 20 - 32 mmol/L [facility] Calcium 9.8 8.6 - 10.4 mg/dL [facility] Protein, sr 6.7 6.1 - 8.1 g/dL [facility] Albumin 4.5 3.6 - 5.1 g/dL [facility] GLOBULIN 2.2 1.9 - 3.7 g/dL (calc) [facility] Alb/glob ratio 2.0 1.0 - 2.5 (calc) [facility] Bilirubin, total 0.5 0.2 - 1.2 mg/dL [facility] Alk phos 53 37 - 153 U/L [facility] AST 18 10 - 35 U/L [facility] ALT (SGPT) 17 6 - 29 U/L [facility] 05/02/2021 2:00 PM MANUFACTURING SALES 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 05/02/2021 2:01 PM MANUFACTURING SALES 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 Rere JAY LAB BLOOD ORDERAB LES Final Result Performing Organization Address [facility]/ZIP Co de Phone Number [facility] [address] [place] [address] * CRP (acute phase) (01/20/2021 3:24 PM CDT) C-RP 5.3 <8.0 mg/L [facility] 01/20/2021 3:24 PM CDT 01/20/2021 3:26 PM CDT Rere JAY LAB BLOOD ORDERAB LES Final Result Performing Organization Address City/[facility]/ZIP Co de Phone Number [facility] [address] [place] [address] * CBC with auto differential (01/20/2021 3:24 PM CDT) WBC 5.9 3.8 - 10.8 Thousand/u L [facility] RBC, POC 4.52 3.80 - 5.10 Million/uL [facility] Hgb 13.2 11.7 - 15.5 g/dL [facility] Hct 39.5 35.0 - 45.0 % [facility] MCV 87.4 80.0 - 100.0 fL [facility] MCH 29.2 27.0 - 33.0 pg [facility] MCHC 33.4 32.0 - 36.0 g/dL [facility] Rdw 14.3 11.0 - 15.0 % [facility] Platelets 240 140 - 400 Thousand/u L [facility] MPV 9.6 7.5 - 12.5 fL [facility] Neutrophils, abs 2,826 1,500 - 7,800 cells/uL [facility] Lymphocytes, abs 2,236 850 - 3,900 cells/uL [facility] Monocyte abs 655 200 - 950 cells/uL [facility] Eosinophils, abs 153 15 - 500 cells/uL [facility] Basophils, abs 30 0 - 200 cells/uL [facility] Neutrophils 47.9 % [facility] Lymphocyte pct 37.9 % [facility] Monocytes 11.1 % [facility] Eosinophils 2.6 % [facility] Basophils 0.5 % [facility] 01/20/2021 3:24 PM CDT 01/20/2021 3:26 PM CDT us Rere JAY LAB BLOOD ORDERAB LES Final Result [facility] [address] [place] [address] * Erythrocyte sedimentation rate (01/20/2021 3:24 PM CDT) Erythrocyte sedimentation rate 14 < OR = 20 mm/h [facility] 01/20/2021 3:24 PM CDT 01/20/2021 3:26 PM CDT us Rere JAY LAB BLOOD ORDERAB LES Final Result [facility] [address] [place] [address] * (ABNORMAL) Comprehensive metabolic panel (01/20/2021 3:24 PM CDT) Glucose 105(H) 65 - 99 mg/dL [facility] Comment: ? Fasting reference interval For someone without known diabetes, a glucose value between 100 and 125 mg/dL is consistent with prediabetes and should be confirmed with a follow-up test. BUN 9 7 - 25 mg/dL [facility] Creatinine 0.74 0.50 - 1.05 mg/dL [facility] Comment: For patients >49 years of age, the reference limit for Creatinine is approximately 13% higher for people identified as -Burmese. eGFR NON-AFR. MONEGASQUE 94 > OR = 60 mL/min/1 .73m2 [facility] EGFR 109 > OR = 60 mL/min/1 .73m2 [facility] BUN/creat ratio NOT APPLICABLE 6 - 22 (calc) [facility] Sodium 141 135 - 146 mmol/L [facility] Potassium, pl 4.2 3.5 - 5.3 mmol/L [facility] Chloride 105 98 - 110 mmol/L [facility] CO2 33(H) 20 - 32 mmol/L [facility] Calcium 9.6 8.6 - 10.4 mg/dL [facility] Protein, sr 6.9 6.1 - 8.1 g/dL [facility] Albumin 4.5 3.6 - 5.1 g/dL [facility] GLOBULIN 2.4 1.9 - 3.7 g/dL (calc) [facility] Alb/glob ratio 1.9 1.0 - 2.5 (calc) [facility] Bilirubin, total 0.5 0.2 - 1.2 mg/dL [facility] Alk phos 63 37 - 153 U/L [facility] AST 19 10 - 35 U/L [facility] ALT (SGPT) 22 6 - 29 U/L [facility] 01/20/2021 3:24 PM CDT 01/20/2021 3:26 PM CDT Rere JAY LAB BLOOD ORDERAB LES Final Result Performing Organization Address City/[facility]/ZIP Co de Phone Number [facility] [address] [place] [address] * (ABNORMAL) CRP (acute phase) (10/04/2020 11:03 AM CDT) Pathologist [facility] C-RP 8.7(H) <8.0 mg/L [facility] 10/04/2020 11:0 3 AM CDT 10/04/2020 11:04 AM CDT Narrative [facility] - 10/05/2020 9:36 AM CDT FASTING:NO FASTING: NO us Rere JAY LAB BLOOD ORDERAB LES Final Result Performing Organization Address City/[facility]/ZIP Co de Phone Number [facility] [address] [place] [address] * CBC with auto differential (10/04/2020 11:03 AM CDT) WBC 5.7 3.8 - 10.8 Thousand/u L [facility] RBC, POC 4.53 3.80 - 5.10 Million/uL [facility] Hgb 13.4 11.7 - 15.5 g/dL [facility] Hct 39.9 35.0 - 45.0 % [facility] MCV 88.1 80.0 - 100.0 fL [facility] MCH 29.6 27.0 - 33.0 pg [facility] MCHC 33.6 32.0 - 36.0 g/dL [facility] Rdw 14.3 11.0 - 15.0 % [facility] Platelets 223 140 - 400 Thousand/u L [facility] MPV 9.5 7.5 - 12.5 fL [facility] Neutrophils, abs 2,736 1,500 - 7,800 cells/uL [facility] Lymphocytes, abs 2,291 850 - 3,900 cells/uL [facility] Monocyte abs 479 200 - 950 cells/uL [facility] Eosinophils, abs 177 15 - 500 cells/uL [facility] Basophils, abs 17 0 - 200 cells/uL [facility] Neutrophils 48 % [facility] Lymphocyte pct 40.2 % [facility] Monocytes 8.4 % [facility] Eosinophils 3.1 % [facility] Basophils 0.3 % [facility] 10/04/2020 11:0 3 AM CDT 10/04/2020 11:04 AM CDT Narrative [facility] - 10/05/2020 9:36 AM CDT FASTING:NO FASTING: NO Rere JAY LAB BLOOD ORDERAB LES Final Result Performing Organization Address City/[facility] Co de Phone Number [facility] [address] [place] [address] * Erythrocyte sedimentation rate (10/04/2020 11:03 AM CDT) Erythrocyte sedimentation rate 11 < OR = 20 mm/h [facility] 10/04/2020 11:0 3 AM CDT 10/04/2020 11:04 AM CDT Narrative [facility] - 10/05/2020 9:36 AM CDT FASTING:NO FASTING: NO Rere JAY LAB BLOOD ORDERAB LES Final Result [facility] [address] [place] [address] * Comprehensive metabolic panel (10/04/2020 11:03 AM CDT) Glucose 119 65 - 139 mg/dL [facility] Comment: ? Non-fasting reference interval BUN 12 7 - 25 mg/dL [facility] Creatinine 0.61 0.50 - 1.05 mg/dL [facility] Comment: For patients >49 years of age, the reference limit for Creatinine is approximately 13% higher for people identified as -Burmese. eGFR NON-AFR. MONEGASQUE 106 > OR = 60 mL/min/1 .73m2 [facility] EGFR 123 > OR = 60 mL/min/1 .73m2 [facility] BUN/creat ratio NOT APPLICABLE 6 - 22 (calc) [facility] Sodium 142 135 - 146 mmol/L [facility] Potassium, pl 4.1 3.5 - 5.3 mmol/L [facility] Chloride 106 98 - 110 mmol/L [facility] CO2 29 20 - 32 mmol/L [facility] Calcium 9.2 8.6 - 10.4 mg/dL [facility] Protein, sr 6.4 6.1 - 8.1 g/dL [facility] Albumin 4.1 3.6 - 5.1 g/dL [facility] GLOBULIN 2.3 1.9 - 3.7 g/dL (calc) [facility] Alb/glob ratio 1.8 1.0 - 2.5 (calc) [facility] Bilirubin, total 0.4 0.2 - 1.2 mg/dL [facility] Alk phos 62 37 - 153 U/L [facility] AST 17 10 - 35 U/L [facility] ALT (SGPT) 20 6 - 29 U/L [facility] 10/04/2020 11:0 3 AM CDT 10/04/2020 11:04 AM CDT Narrative [facility] - 10/05/2020 9:36 AM CDT FASTING:NO FASTING: NO Rere JAY LAB BLOOD ORDERAB LES Final Result Performing Organization Address [facility] de Phone Number [facility] [address] [place] [address] * (ABNORMAL) CRP (acute phase) (07/08/2020 10:49 AM CDT) [facility] C-RP 8.6(H) <8.0 mg/L [facility] 07/08/2020 10:4 9 AM CDT 07/08/2020 10:50 AM CDT Narrative [facility] - 07/09/2020 11:44 AM CDT FASTING:NO FASTING: NO Rere JAY LAB BLOOD ORDERAB LES Final Result Performing Organization Address [facility] de Phone Number [facility] [address] [place] [address] * CBC with auto differential (07/08/2020 10:49 AM CDT) [facility] WBC 6.4 3.8 - 10.8 Thousand/u L [facility] RBC, POC 5.03 3.80 - 5.10 Million/uL [facility] Hgb 15.0 11.7 - 15.5 g/dL [facility] Hct 44.5 35.0 - 45.0 % [facility] MCV 88.5 80.0 - 100.0 fL [facility] MCH 29.8 27.0 - 33.0 pg [facility] MCHC 33.7 32.0 - 36.0 g/dL [facility] Rdw 13.7 11.0 - 15.0 % [facility] Platelets 259 140 - 400 Thousand/u L [facility] MPV 9.2 7.5 - 12.5 fL [facility] Neutrophils, abs 3,296 1,500 - 7,800 cells/uL [facility] Lymphocytes, abs 2,310 850 - 3,900 cells/uL [facility] Monocyte abs 576 200 - 950 cells/uL [facility] Eosinophils, abs 198 15 - 500 cells/uL [facility] Basophils, abs 19 0 - 200 cells/uL [facility] Neutrophils 51.5 % [facility] Lymphocyte pct 36.1 % [facility] Monocytes 9.0 % [facility] Eosinophils 3.1 % [facility] Basophils 0.3 % [facility] 07/08/2020 10:4 9 AM CDT 07/08/2020 10:50 AM CDT Narrative [facility] - 07/09/2020 11:44 AM CDT FASTING:NO FASTING: NO us Rere JAY LAB BLOOD ORDERAB LES Final Result Performing Organization Address [facility]/ZIP Co de Phone Number [facility] [address] [place] [address] * Erythrocyte sedimentation rate (07/08/2020 10:49 AM CDT) Pathologist [facility] Erythrocyte sedimentation rate 11 < OR = 20 mm/h [facility] 07/08/2020 10:4 9 AM CDT 07/08/2020 10:50 AM CDT Narrative [facility] - 07/09/2020 11:44 AM CDT FASTING:NO FASTING: NO Rere JAY LAB BLOOD ORDERAB LES Final Result Performing Organization Address [facility] Co de Phone Number [facility] [address] [place] [address] * Comprehensive metabolic panel (07/08/2020 10:49 AM CDT) Pathologist [facility] Glucose 91 65 - 139 mg/dL [facility] Comment: ? Non-fasting reference interval BUN 10 7 - 25 mg/dL [facility] Creatinine 0.70 0.50 - 1.05 mg/dL [facility] Comment: For patients >49 years of age, the reference limit for Creatinine is approximately 13% higher for people identified as -Burmese. eGFR NON-AFR. MONEGASQUE 101 > OR = 60 mL/min/1 .73m2 [facility] EGFR 117 > OR = 60 mL/min/1 .73m2 [facility] BUN/creat ratio NOT APPLICABLE 6 - 22 (calc) [facility] Sodium 142 135 - 146 mmol/L [facility] Potassium, pl 3.8 3.5 - 5.3 mmol/L [facility] Chloride 106 98 - 110 mmol/L [facility] CO2 30 20 - 32 mmol/L [facility] Calcium 9.8 8.6 - 10.4 mg/dL [facility] Protein, sr 7.3 6.1 - 8.1 g/dL [facility] Albumin 4.4 3.6 - 5.1 g/dL [facility] GLOBULIN 2.9 1.9 - 3.7 g/dL (calc) [facility] Alb/glob ratio 1.5 1.0 - 2.5 (calc) [facility] Bilirubin, total 0.5 0.2 - 1.2 mg/dL [facility] Alk phos 75 37 - 153 U/L [facility] AST 20 10 - 35 U/L [facility] ALT (SGPT) 26 6 - 29 U/L [facility] 07/08/2020 10:4 9 AM CDT 07/08/2020 10:50 AM CDT Narrative [facility] - 07/09/2020 11:44 AM CDT FASTING:NO FASTING: NO us Rere JAY LAB BLOOD ORDERAB LES Final Result [facility] [address] [id number] * (ABNORMAL) CRP (acute phase) (04/04/2020 1:58 PM MANUFACTURING SALES 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) Pathologist [facility] C-RP 11.2(H) <8.0 mg/L [facility] Blood specimen (specimen) 04/04/2020 1:58 PM MANUFACTURING SALES 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 04/04/2020 1:58 PM MANUFACTURING SALES 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 Christa JAY LAB BLOOD ORDERABLES Final Result Performing Organization Address [facility]/ZIP Co de Phone Number QUEST [facility] [address] [place] [address] * (ABNORMAL) Erythrocyte sedimentation rate (04/04/2020 1:58 PM MANUFACTURING SALES 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) [facility] Erythrocyte sedimentation rate 25(H) < OR = 20 mm/h [facility] Blood specimen (specimen) 04/04/2020 1:58 PM MANUFACTURING SALES 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 04/04/2020 1:58 PM MANUFACTURING SALES 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 Christa JAY LAB BLOOD ORDERABLES Final Result Performing Organization Address [facility] de Phone Number QUEST [facility] [address] [place] [address] * CBC with auto differential (04/04/2020 1:58 PM MANUFACTURING SALES 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) [facility] WBC 7.1 3.8 - 10.8 Thousand/u L [facility] RBC, POC 4.35 3.80 - 5.10 Million/uL [facility] Hgb 13.3 11.7 - 15.5 g/dL [facility] Hct 39.2 35.0 - 45.0 % [facility] MCV 90.1 80.0 - 100.0 fL [facility] MCH 30.6 27.0 - 33.0 pg [facility] MCHC 33.9 32.0 - 36.0 g/dL [facility] Rdw 15.0 11.0 - 15.0 % [facility] Platelets 266 140 - 400 Thousand/u L [facility] MPV 9.4 7.5 - 12.5 fL [facility] Neutrophils, abs 4,189 1,500 - 7,800 cells/uL [facility] Lymphocytes, abs 2,016 850 - 3,900 cells/uL [facility] Monocyte abs 682 200 - 950 cells/uL [facility] Eosinophils, abs 192 15 - 500 cells/uL [facility] Basophils, abs 21 0 - 200 cells/uL [facility] Neutrophils 59 % [facility] Lymphocyte pct 28.4 % [facility] Monocytes 9.6 % [facility] Eosinophils 2.7 % [facility] Basophils 0.3 % [facility] Blood specimen (specimen) 04/04/2020 1:58 PM MANUFACTURING SALES 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 04/04/2020 1:58 PM MANUFACTURING SALES 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 Christa JAY LAB BLOOD ORDERABLES Final Result [facility] [address] [place] [address] * (ABNORMAL) Comprehensive metabolic panel (04/04/2020 1:58 PM MANUFACTURING SALES 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) [facility] Glucose 100(H) 65 - 99 mg/dL [facility] Comment: ? Fasting reference interval For someone without known diabetes, a glucose value between 100 and 125 mg/dL is consistent with prediabetes and should be confirmed with a follow-up test. BUN 11 7 - 25 mg/dL [facility] Creatinine 0.67 0.50 - 1.10 mg/dL [facility] eGFR NON-AFR. MONEGASQUE 103 > OR = 60 mL/min/1. 73m2 [facility] EGFR 120 > OR = 60 mL/min/1. 73m2 [facility] BUN/creat ratio NOT APPLICABLE 6 - 22 (calc) [facility] Sodium 141 135 - 146 mmol/L [facility] Potassium, pl 4.2 3.5 - 5.3 mmol/L [facility] Chloride 105 98 - 110 mmol/L [facility] CO2 30 20 - 32 mmol/L [facility] Calcium 9.4 8.6 - 10.2 mg/dL [facility] Protein, sr 6.8 6.1 - 8.1 g/dL [facility] Albumin 4.5 3.6 - 5.1 g/dL [facility] GLOBULIN 2.3 1.9 - 3.7 g/dL (calc) [facility] Alb/glob ratio 2.0 1.0 - 2.5 (calc) [facility] Bilirubin, total 0.5 0.2 - 1.2 mg/dL [facility] Alk phos 68 31 - 125 U/L [facility] AST 31 10 - 35 U/L [facility] ALT (SGPT) 41(H) 6 - 29 U/L [facility] Blood specimen (specimen) 04/04/2020 1:58 PM MANUFACTURING SALES 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 04/04/2020 1:58 PM MANUFACTURING SALES 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 us Christa JAY LAB BLOOD ORDERABLES Final Result [facility] [address] [place] [address] documented in this encounter Visit Diagnoses Diagnosis 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
--- OUTSIDE RECORDS SUMMARY | 2024-04-01 11:19 | XMS_ITS | Encounter Summary ---
Author Organization [facility] Address [address] [place] [address] Phone Care Team Providers Care Magnetic Resonance Imaging Coordinator Name Role Phone Kevin Bowles MD Primary Care Provider [phone] Eric Crowder MD Unavailable [phone] Encounter Details Date Type Department Care Team (Late st Contact Info) Description 03/01/2020 Telephone [facility] [address] [place] [phone] Cat Jones Social History Tobacco Use Types Packs/Day Years Used Date Smoking Tobacco: Never Alcohol Use Standard Drinks/Week Comments Yes 0 (1 standard drink = 0.6 oz pur e alcohol) Comments Unknown Sex and Gender Information Value Date Recorded Sex Assigned at Not on file Legal Sex Female 9:01 PM VALVE GRINDER Gender Identity Not on file Sexual Orientation Not on file documented as of this encounter Miscellaneous Notes * Telephone Encounter - Cat Jones - 03/01/2020 2:10 PM CST Noted E GRINDER * Telephone Encounter - Christa Bueno PA - 03/01/2020 12:17 PM VALVE GRINDER Updated script sent. E GRINDER * Telephone Encounter - Cat Jones - 03/01/2020 11:56 AM CST Received fax from pharm stating MTX rx sent yesterday has 2 sets of directions. Needing new rx sentw/correct sig. E GRINDER documented in this encounter Plan of Treatment Not on file documented as of this encounter Visit Diagnoses Not on filedocumented in this encounter Care Teams Magnetic Resonance Imaging Coordinator Relationship Specialty Start Date End Date Kevin Bowles MD [address] [facility] [address] [place] [address] PCP - General 06/19/16 01/16/24 Eric Crowder MD [address] [facility] [address] [facility] [address] [place] [address] Rheumatology 01/18/17 documented as of this encounter
--- OUTSIDE RECORDS SUMMARY | 2024-04-01 11:19 | XMS_ITS | Encounter Summary ---
Author Organization [facility] Address [address] [place] [address] Phone Care Team Providers Care Ug Designer Name Role Phone Kevin Bowles MD Primary Care Provider [phone] Eric Crowder MD Unavailable [phone] Reason for Referral * Diagnostic Imaging (Routine) - Closed Specialty Diagnoses / Procedures Referred By Contac t Referred To Contact Diagnoses 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/HCC) (HCC) Procedures US Hand Complete Christa Bueno PA [address] [place] [address] Phone: tel: fax: External Order Referral ID Status Reason Start Date Expiration Date Visits Re quested Visits Authorized [id number] Closed 05/21/2021 06/20/2022 1 1 TRIMMER Encounter Details Date Type Department Care Team (Latest Contact Info) Description 05/21/2021 2:00 PM BODY TRIMMER Office Visit [facility] [address] [place] [address] Christa Bueno PA [address] [place] [address] 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/HCC) (HCC) (Primary Dx); termite control representative current use 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 Social History Tobacco Use Types Packs/Day Years Used Date Smoking Tobacco: Never Alcohol Use Standard Drinks/Week Comments Yes 0 (1 standard drink = 0.6 oz pur e alcohol) Comments Unknown Sex and Gender Information Value Date Recorded Sex Assigned at Not on file Legal Sex Female 9:01 PM BODY TRIMMER Gender Identity Not on file Sexual Orientation Not on file documented as of this encounter Last Filed Vital Signs Vital Sign Reading Time Taken Comments Blood Pressure 136/80 05/21/2021 2:11 PM BODY TRIMMER Pulse 99 05/21/2021 2:11 PM BODY TRIMMER Temperature 36.5 ??C (97.7 ??F) 05/21/2021 2:11 PM CS T Respiratory Rate - - Oxygen Saturation 97% 05/21/2021 2:11 PM BODY TRIMMER Inhaled Oxygen Concentration - - Weight 143 kg (315 lb 3.2 oz) 05/21/2021 2:11 PM BODY TRIMMER Height - - Body Mass Index 54.1 07/10/2020 12:16 PM CDT documented in this encounter Ordered Prescriptions Prescription Sig Dispense Quantity Refills Last Filled Start Date End Date methotrexate 2.5 mg tabletIndications: Rheumatoid Arthritis Take 8 tablets (20 mg total) by mouth every 7 days 96 tablet 1 05/21/2021 2 hydrOXYchloroQUINE (PLAQUENIL) 200 mg tabletIndications: Connective Tissue Disease,auto immune disease Take 1 tablet (200 mg total) by mouth 2 (two) times a day 180 tablet 1 05/21/2021 2 folic acid (FOLVITE) 1 mg tablet Take 1 tablet (1 mg total) by mouth daily Take one tab daily 90 tablet 1 05/21/2021 2 documented in this encounter Progress Notes * Christa Bueno PA - 05/21/2021 2:00 PM CST Images from the original note were not included. Subjective/Objective Patient ID: Monica Buckner is a 50 y.o. female. Chief Complaint Joint pain HPI Returns for routine follow up. Denied much relief with kenalog injection in her R shoulder. Noted after about 3 weeks it started to improve. Lately has been having pain in the right elbow and right PIP joints. Having pain in the right elbow with active flexion/extension. Slow movement helps. Getting dry skin but denies psoriasis. Denies fevers, infections, rashes, mouth sores, cough, dyspnea, n/v. Joint pain today is 4 /10. AM stiffness = few hours Review of Systems Constitutional: Positive for fatigue. Negative for chills and fever. HENT: Negative for congestion and mouth sores. Respiratory: Negative for cough and shortness of breath. Cardiovascular: Negative for chest pain. Gastrointestinal: Negative for abdominal pain, diarrhea, nausea and vomiting. Musculoskeletal: Positive for arthralgias. Negative for myalgias. Skin: Negative for rash. Vitals: Vitals BP 136/80 Pulse 99 Temp 36.5 ??C (97.7 ??F) Wt (!) 143 kg (315 lb 3.2 oz) SpO2 97% BMI 54.10 kg/m?? Body mass index is 54.1 kg/m??. Bold X is a current medication. [...] heart sounds. No murmur heard. Pulmonary/Chest: Effort normal. Musculoskeletal: See cdai. Neurological: alert and oriented to person, place, and time. Skin: Skin is warm and dry. No rash noted. Psychiatric: normal mood and affect. speech is normal and behavior is normal. Cognition and memory are normal. Labs Lab Results Component Value Date WBC 5.5 05/02/2021 HGB 13.8 05/02/2021 HCT 41.7 05/02/2021 MCV 87.2 05/02/2021 Lab Results Component Value Date GLUCOSE 98 05/02/2021 CALCIUM 9.8 05/02/2021 SODIUM 138 05/02/2021 POTASSIUM 4.1 05/02/2021 CO2 28 05/02/2021 CHLORIDE 103 05/02/2021 BUNSER 11 05/02/2021 CREATININE 0.68 05/02/2021 Lab Results Component Value Date ALT 17 05/02/2021 AST 18 05/02/2021 ALKPHOS 53 05/02/2021 BILITOT 0.5 05/02/2021 Lab Results Component Value Date SEDRATE 14 05/02/2021 Lab Results Component Value Date CRP 10.0 (H) 05/02/2021 IMAGING: US right hand/wrist (06/02/17): Moderate synovitis with effusions, synovial thickening and power doppler.. ??Findings greatest in the radial/scaphoid joint with grade 2 effusion and grade 1 power doppler and the long view of the wrist with a grade 1 effusion and grade 1 power doppler with synovial thickening of 1.0 cm. ??Grade 1 effusion and power doppler also seen in the 2nd??MCP. ??Grade 1 powerdoppler seen in the 3rd??MCP joint and the volar 4th??PIP joint. ??Synovial thickening seen throughout the wrist, MCP, and PIP joints. Patient Global: 40 mm Provider Global: 40 mm CDAI: 23 In remission: 0-3 Low: 4-10 Moderate: 11-22 High: 23 or > Assessment/Plan Diagnoses and all orders for this visit: 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/HCC) ([facility]) (Primary) Assessment & Plan: High cdai. Noticing worsening nausea with MTX [...] and discuss tx plan and f/u then. Orders: - US Hand Complete; Future termite control representative current use 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 Assessment & [...] PA-C Cosigned by Eric Crowder MD at 05/22/2021 10:35 AM BODY TRIMMER TRIMMER TRIMMER documented in this encounter Miscellaneous Notes * Assessment & Plan Note - Christa Bueno PA - 05/21/2021 4:27 PM BODY TRIMMER Associated Problem(s): group home current use 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 Routine labs via standing order. TRIMMER * Assessment & Plan Note - Christa Bueno PA - 05/21/2021 4:24 PM BODY TRIMMER Associated Problem(s): 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/HCC) (HCC) High cdai. Noticing worsening nausea with MTX [...] and discuss tx plan and f/u then. TRIMMER TRIMMER TRIMMER documented in this encounter Plan of Treatment Pending Results Name Type Priority Associated Diagnoses Date /Time US Hand Complete Imaging Schedule Routin e, Read Routine (OP Routine) 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/HCC) ([facility]) 05/29/2021 1:30 PM BODY TRIMMER Scheduled Orders Name Type Priority Associated Diagnoses Orde r Schedule US Hand Complete Imaging Schedule Routin e, Read Routine (OP Routine) 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/HCC) (HCC) Expected: 05/21/2021, Expires: 05/21/2022 documented as of this encounter Visit Diagnoses Diagnosis 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 Unspecified inflammatory polyarthropathy group home current use 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 documented in this encounter Discontinued Medications Medication Sig Discontinue Reason Start Date End Da te hydrOXYchloroQUINE (PLAQUENIL) 200 mg tabletIndications:Connec tive Tissue Disease,auto immune disease Take 1 tablet (200 mg total) by mouth 2 (two) times a day Reorder 07/10/2020 05/21/2021 folic acid (FOLVITE) 1 mg tablet Take 1 tablet (1 mg total) by mouth daily Take one tab daily Reorder 01/24/2021 05/21/2021 methotrexate 2.5 mg tabletIndications:Rheuma toid Arthritis Take 8 tablets (20 mg total) by mouth every 7 days Reorder 01/24/2021 05/21/2021 documented as of this encounter Care Teams Ug Designer Relationship Specialty Start Date End Date Kevin Bowles MD [address] [facility] [address] [place] [address] PCP - General 06/19/16 01/16/24 Eric Crowder MD [address] [facility] [address] [place] [address] Rheumatology 01/18/17 documented as of this encounter
--- OUTSIDE RECORDS SUMMARY | 2024-04-01 11:19 | XMS_ITS | Encounter Summary ---
Author Organization [facility] Address [address] [place] [address] Phone Care Team Providers Care Staff Weapons Officer Name Role Phone Kevin Bowles MD Primary Care Provider [phone] Eric Crowder MD Unavailable [phone] Reason for Visit * Reason Onset Date Comments Flaring/Wants Steroids 12/12/2020 Encounter Details Date Type Department Care Team (Late st Contact Info) Description 12/12/2020 Telephone [facility] [address] [place] [phone] Chantel Ziegler Flaring/Wants Steroids Social History Tobacco Use Types Packs/Day Years Used Date Smoking Tobacco: Never Alcohol Use Standard Drinks/Week Comments Yes 0 (1 standard drink = 0.6 oz pur e alcohol) Comments Unknown Sex and Gender Information Value Date Recorded Sex Assigned at Not on file Legal Sex Female 9:01 PM GAS TORCH SOLDERER Gender Identity Not on file Sexual Orientation Not on file documented as of this encounter Miscellaneous Notes * Telephone Encounter - Chantel Ziegler - 12/12/2020 1:58 PM CDT Pt informed script was sent. She will start it in the am so she can sleep tonight. * Telephone Encounter - Christa Bueno PA - 12/12/2020 1:53 PM CDT Rx sent electronically. * Telephone Encounter - Chantel Ziegler - 12/12/2020 1:08 PM CDT Spoke w/pt & she wants script sent to the [facility] in [place] please. * Telephone Encounter - Christa Bueno PA - 12/12/2020 12:49 PM CDT I can send in prednisone 20mg x5 days, 10mg x5 days. Does she want this sent to [facility] or a differentpharmacy? * Telephone Encounter - Chantel Ziegler - 12/12/2020 12:44 PM CDT Pt reports she is having a bad flare & has to help her son & [id number] move this weekend. Wants to know if you will send a short course of steroids for her. documented in this encounter Plan of Treatment Not on file documented as of this encounter Visit Diagnoses Not on filedocumented in this encounter Care Teams Staff Weapons Officer Relationship Specialty Start Date End Date Kevin Bowles MD [facility] [facility] [address] [address] PCP - General 06/19/16 01/16/24 Eric Crowder MD [address] [facility] [address] [place] [address] Rheumatology 01/18/17 documented as of this encounter
--- OUTSIDE RECORDS SUMMARY | 2024-04-01 11:19 | XMS_ITS | Encounter Summary ---
Author Organization [facility] Address [address] [place] [address] Phone Care Team Providers Care Course Developer Name Role Phone Kevin Bowles MD Primary Care Provider [phone] Eric Crowder MD Unavailable [phone] Reason for Visit * Reason Comments Pain * Consultation (Routine) - Closed Specialty Diagnoses / Procedures Referred By Marc kahn Referred To Contact Orthopedic Surgery Diagnoses Right shoulder pain, unspecified chronicity Kevin Bowles MD Phone: tel: fax: [facility] (All Locations) Referral ID Status Reason Start Date Expiration Date V isits Requested Visits Authorized [id number] Closed Specialty Services Required 02/20/2021 03/22/2022 1 1 Encounter Details Date Type Department Care Team (Late st Contact Info) Description 02/24/2021 10:50 AM BACCARAT MANAGER Office Visit [facility] Orthopaedic Surgery [address] [facility] 2[address] [place] [phone] Kian Perales MD [address] [facility] [address] [place] [address] Right shoulder pain, unspecified chronicity Social History Tobacco Use Types Packs/Day Years Used Date Smoking Tobacco: Never Alcohol Use Standard Drinks/Week Comments Yes 0 (1 standard drink = 0.6 oz pur e alcohol) Comments Unknown Sex and Gender Information Value Date Recorded Sex Assigned at Not on file Legal Sex Female 9:01 PM BACCARAT MANAGER Gender Identity Not on file Sexual Orientation Not on file documented as of this encounter Progress Notes * Kian Perales MD - 02/24/2021 10:50 AM CST NEW PATIENT VISIT CHIEF COMPLAINT Pain of the Right Shoulder HISTORY OF PRESENT ILLNESS Monica Buckner is a 50-year-old left-hand dominant female who presents with chronic right shoulder pain that has worsened over the past month. This all started insidiously. She has a past medical history that includes obesity, migraines, pneumonia, rheumatoid arthritis, thyroid disease, and history of urinary tract infection. She is on methotrexate, Plaquenil for inflammatory arthritis. She also has Sjogren's disease. She has previously had a injection targeting the right shoulder approximately 2 months ago. This did not provide significant relief. She has taken anti-inflammatories without significant relief. The pain is unpredictable and can be activity related can also bother her at night. PAST MEDICAL HISTORY She has no past medical history on file. See above. PAST SURGICAL HISTORY She has a past surgical history that includes Carpal tunnel release and Other surgical history. INITIAL REVIEW OF MEDICATIONS She has a current medication list which includes the following prescription(s): acetaminophen, clonidine, ergocalciferol, folic acid, hydroxychloroquine, ibuprofen, levothyroxine, loratadine, methotrexate, montelukast, ondansetron, proair hfa, and trazodone. DRUG ALLERGIES She is allergic to ketorolac and sumatriptan. SOCIAL HISTORY She reports that she has never smoked. She does not have any smokeless tobacco history on file. Shereports current alcohol use. FAMILY HISTORY Her family history is not on file. PHYSICAL EXAMINATION On physical exam, she is in no acute distress. She is awake, alert, and oriented x3. She is able toanswer questions appropriate participate in her exam. Focused examination of the right shoulder, she can forward elevate to 120??. She can externally rotate to 60??. She can internally rotate to the low lumbar spine. She does not have significant pain in Yuki's position. She has equivocal lateral impingement signs. She does have pain in [facility]'s position. He has positive Yergason's test. She has negative abdominal compression test. Her motor and sensory exam demonstrates intact axillary, median, ulnar, radial, musculocutaneous nerve distributions. She has an equivocal Spurling's to the right side. REVIEW OF X-RAYS/STUDIES X-rays of the right shoulder demonstrate well-aligned glenohumeral joint maintained joint space. There is no acute osseous abnormalities IMPRESSION/DIAGNOSIS Concern for intra-articular process potentially involving the biceps or early inflammatory arthropathy. TREATMENT PLAN A prolonged discussion with the patient regarding her radiographic clinical findings. I recommendedthat we perform a fluoroscopic guided injection into the right glenohumeral joint. This will serve both diagnostic and therapeutic purposes. She is in agreement with this plan FOLLOW-UP Six weeks Kian Perales MD Pl Sql Programmer of Orthopedic Surgery Shoulder and Elbow Service [facility] Orthopedics [facility] Dr. Jacinto Perales dictating using Fluency Direct. Retail Analyst variances may occur. ARAT MANAGER documented in this encounter Plan of Treatment Not on file documented as of this encounter Visit Diagnoses Diagnosis Right shoulder pain, unspecified chronicity documented in this encounter Orders Outpatient Referral Count Last Ordered Date Fir st Ordered Date AMB REFERRAL TO ORTHOPEDIC SURGERY 1 2020 documented in this encounter Care Teams Course Developer Relationship Specialty Start Date End Date Kevin Bowles MD [facility] [address] [place] [address] PCP - General 06/19/16 01/16/24 Eric Crowder MD [address] [place] [address] Rheumatology 01/18/17 documented as of this encounter
--- OUTSIDE RECORDS SUMMARY | 2024-04-01 11:19 | XMS_ITS | Encounter Summary ---
Author Organization [facility] Address [address] [place] [address] Phone Care Team Providers Care Motel Food Service Supervisor Name Role Phone Kevin Bowles MD Primary Care Provider [phone] Eric Crowder MD Unavailable [phone] Encounter Details Date Type Department Care Team (Late st Contact Info) Description 04/21/2021 Telephone [facility] Orthopaedic Surgery [facility] Advanced Medicine 6th [place] [address] [place] [address] Izabela Mohan RMA Social History Tobacco Use Types Packs/Day Years Used Date Smoking Tobacco: Never Alcohol Use Standard Drinks/Week Comments Yes 0 (1 standard drink = 0.6 oz pur e alcohol) Comments Unknown Sex and Gender Information Value Date Recorded Sex Assigned at Not on file Legal Sex Female 9:01 PM WORKFORCE MANAGEMENT MANAGER Gender Identity Not on file Sexual Orientation Not on file documented as of this encounter Miscellaneous Notes * Telephone Encounter - Izabela Mohan RMA - 04/21/2021 10:14 AM CST Called pt no answer lft msg to contact our office to schedule inj ordered by FORCE MANAGEMENT MANAGER documented in this encounter Plan of Treatment Not on file documented as of this encounter Visit Diagnoses Not on filedocumented in this encounter Care Teams Motel Food Service Supervisor Relationship Specialty Start Date End Date Kevin Bowles MD [facility] [facility] [address] [place] [address] PCP - General 06/19/16 01/16/24 Eric Crowder MD [address] [facility] [address] [place] [address] Rheumatology 01/18/17 documented as of this encounter
--- OUTSIDE RECORDS SUMMARY | 2024-04-01 11:19 | XMS_ITS | Encounter Summary ---
Author Organization [facility] Address [address] [place] [address] Phone Care Team Providers Care Security Operations Center Operator Name Role Phone Kevin Bowles MD Primary Care Provider [phone] Eric Crowder MD Unavailable [phone] Encounter Details Date Type Department Care Team (Latest Contact Info) Description 02/29/2020 1:45 PM TEXTILE ENGINEER Office Visit [facility] [address] [place] [address] Christa Bueno PA [address] [place] [address] 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/HCC) (Primary Dx); prison current use 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 Social History Tobacco Use Types Packs/Day Years Used Date Smoking Tobacco: Never Alcohol Use Standard Drinks/Week Comments Yes 0 (1 standard drink = 0.6 oz pur e alcohol) Comments Unknown Sex and Gender Information Value Date Recorded Sex Assigned at Not on file Legal Sex Female 9:01 PM TEXTILE ENGINEER Gender Identity Not on file Sexual Orientation Not on file documented as of this encounter Last Filed Vital Signs Vital Sign Reading Time Taken Comments Blood Pressure 150/88 02/29/2020 1:56 PM TEXTILE ENGINEER Pulse - - Temperature 36.6 ??C (97.9 ??F) 02/29/2020 1:56 PM CS T Respiratory Rate - - Oxygen Saturation - - Inhaled Oxygen Concentration - - Weight 144.2 kg (318 lb) 02/29/2020 1:56 PM TEXTILE ENGINEER Height 162.6 cm (5' 4 ) 02/29/2020 1:56 PM TEXTILE ENGINEER Body Mass Index 54.58 02/29/2020 1:56 PM TEXTILE ENGINEER documented in this encounter Ordered Prescriptions Prescription Sig Dispense Quantity Refills Last Filled Start Date End Date hydrOXYchloroQUINE (PLAQUENIL) 200 mg tabletIndications: Connective Tissue Disease,auto immune disease Take 1 tablet (200 mg total) by mouth 2 (two) times a day 180 tablet 1 02/29/2020 1 methotrexate 2.5 mg tabletIndications: Rheumatoid Arthritis Take 8 tablets (20 mg total) by mouth every 7 days Take 6 Tablets by mouth once weekly 96 tablet 1 02/29/2020 0 documented in this encounter Progress Notes * Christa Bueno PA - 02/29/2020 1:45 PM CST Images from the original note were not included. Subjective/Objective Patient ID: Monica Buckner is a 49 y.o. female. Chief Complaint Joint pain HPI Returns for routine follow up. Has been forgetting to take BID SSZ and HCQ. Started taking HCQ 400mg daily. Wondering if she couldincrease MTX and DC SSZ. Denies fevers, infections, rashes, mouth sores, cough, [...] Skin: Negative for rash. Vitals: Vitals BP 150/88 Temp 36.6 ??C (97.9 ??F) Ht 162.6 cm (5' 4 ) Wt (!) 144.2 kg (318 lb) BMI 54.58 kg/m?? Body mass index is 54.58 kg/m??. Bold X is a current medication. Medication Taking/taken D/C or avoidance reason Hydroxychloroquine X ?? Methotrexate -Started 09/02/2017 X ?? Leflunomide ? Azathioprine ? Sulfasalazine x Inconsistent dosing so will d/c CellCept ? Humira ? Enbrel ? [...] Date CRP 9.6 (H) 11/24/2019 Patient Global: 40 mm Provider Global: 40 mm CDAI: 18 In remission: 0-3 Low: 4-10 Moderate: 11-22 High: 23 or > Assessment/Plan Diagnoses and all orders for this visit: 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/HCC) (Primary) Assessment & Plan: Moderate cdai. Increased [...] up in 1 month. Sooner if needed. Orders: - Comprehensive metabolic panel; Future - CBC with auto differential; Future - Erythrocyte sedimentation rate; Future - CRP (acute phase); Future pipe finishing supervisor current use 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 Assessment & Plan: Routine labs via standing order. Due for eye exam. Orders: - Comprehensive metabolic panel; Future - CBC with auto differential; Future - Erythrocyte sedimentation rate; Future - CRP (acute phase); Future Other orders - methotrexate 2.5 mg tablet; Take 8 tablets (20 mg total) by mouth every 7 days Take 6 Tablets by mouth once weekly - hydrOXYchloroQUINE (PLAQUENIL) 200 mg tablet; Take 1 tablet (200 mg total) by mouth 2 (two) timesa day Christa Willis PA-C Cosigned by Eric Crowder MD at 02/29/2020 4:32 PM TEXTILE ENGINEER ILE ENGINEER ILE ENGINEER documented in this encounter Miscellaneous Notes * Assessment & Plan Note - Christa Bueno PA - 02/29/2020 4:01 PM TEXTILE ENGINEER Associated Problem(s): pipe finishing 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 Due for eye exam. ILE ENGINEER * Assessment & Plan Note - Christa Bueno PA - 02/29/2020 3:58 PM TEXTILE ENGINEER Associated Problem(s): 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/HCC) (HCC) [...] up in 1 month. Sooner if needed. ILE ENGINEER ILE ENGINEER documented in this encounter Plan of Treatment Not on file documented as of this encounter Procedures Procedure Name Priority Date/Time Associated Diagnosis Comments CBC WITH AUTO DIFFERENTIAL Routine 02/29/2020 2:20 PM TEXTILE ENGINEER 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/HCC) prison current use 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 ERYTHROCYTE SEDIMENTATION RATE Routine 02/29/2020 2:20 PM TEXTILE ENGINEER 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/HCC) pipe finishing supervisor current use 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 CRP (ACUTE PHASE) Routine 02/29/2020 2:2 0 PM TEXTILE ENGINEER 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/HCC) prison current use 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 COMPREHENSIVE METABOLIC PANEL Routine 02/29/2020 2:20 PM TEXTILE ENGINEER 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/HCC) prison current use 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 documented in this encounter Results * (ABNORMAL) CRP (acute phase) (02/29/2020 2:20 PM TEXTILE ENGINEER) Pathologist [facility] C-RP 12.1(H) <8.0 mg/L [facility] Blood specimen (specimen) 02/29/2020 2:20 PM TEXTILE ENGINEER 02/29/2020 2:21 PM TEXTILE ENGINEER Christa JAY LAB BLOOD ORDERABLES Final Result Performing Organization Address [facility] de Phone Number [facility] [address] [place] [address] * Erythrocyte sedimentation rate (02/29/2020 2:20 PM TEXTILE ENGINEER) [facility] Erythrocyte sedimentation rate 17 < OR = 20 mm/h [facility] Blood specimen (specimen) 02/29/2020 2:20 PM TEXTILE ENGINEER 02/29/2020 2:21 PM TEXTILE ENGINEER Christa JAY LAB BLOOD ORDERABLES Final Result Performing Organization Address [facility] de Phone Number [facility] [address] [place] [address] * CBC with auto differential (02/29/2020 2:20 PM TEXTILE ENGINEER) [facility] WBC 7.6 3.8 - 10.8 Thousand/u L [facility] RBC, POC 4.52 3.80 - 5.10 Million/uL [facility] Hgb 13.8 11.7 - 15.5 g/dL [facility] Hct 40.9 35.0 - 45.0 % [facility] MCV 90.5 80.0 - 100.0 fL [facility] MCH 30.5 27.0 - 33.0 pg [facility] MCHC 33.7 32.0 - 36.0 g/dL [facility] Rdw 14.6 11.0 - 15.0 % [facility] Platelets 270 140 - 400 Thousand/u L [facility] MPV 9.4 7.5 - 12.5 fL [facility] Neutrophils, abs 4,271 1,500 - 7,800 cells/uL [facility] Lymphocytes, abs 2,348 850 - 3,900 cells/uL [facility] Monocyte abs 760 200 - 950 cells/uL [facility] Eosinophils, abs 198 15 - 500 cells/uL [facility] Basophils, abs 23 0 - 200 cells/uL [facility] Neutrophils 56.2 % [facility] Lymphocyte pct 30.9 % [facility] Monocytes 10.0 % [facility] Eosinophils 2.6 % [facility] Basophils 0.3 % [facility] Blood specimen (specimen) 02/29/2020 2:20 PM TEXTILE ENGINEER 02/29/2020 2:21 PM TEXTILE ENGINEER us Christa JAY LAB BLOOD ORDERABLES Final Result [facility] [address] [place] [address] * (ABNORMAL) Comprehensive metabolic panel (02/29/2020 2:20 PM TEXTILE ENGINEER) Glucose 103(H) 65 - 99 mg/dL [facility] Comment: ? Fasting reference interval For someone without known diabetes, a glucose value between 100 and 125 mg/dL is consistent with prediabetes and should be confirmed with a follow-up test. BUN 14 7 - 25 mg/dL [facility] Creatinine 0.73 0.50 - 1.10 mg/dL [facility] eGFR NON-AFR. ARMENIAN 97 > OR = 60 mL/min/1. 73m2 [facility] EGFR 112 > OR = 60 mL/min/1. 73m2 [facility] BUN/creat ratio NOT APPLICABLE 6 - 22 (calc) [facility] Sodium 140 135 - 146 mmol/L [facility] Potassium, pl 4.0 3.5 - 5.3 mmol/L [facility] Chloride 105 98 - 110 mmol/L [facility] CO2 30 20 - 32 mmol/L [facility] Calcium 9.7 8.6 - 10.2 mg/dL [facility] Protein, sr 7.1 6.1 - 8.1 g/dL [facility] Albumin 4.5 3.6 - 5.1 g/dL [facility] GLOBULIN 2.6 1.9 - 3.7 g/dL (calc) [facility] Alb/glob ratio 1.7 1.0 - 2.5 (calc) [facility] Bilirubin, total 0.4 0.2 - 1.2 mg/dL [facility] Alk phos 78 31 - 125 U/L [facility] AST 19 10 - 35 U/L [facility] ALT (SGPT) 21 6 - 29 U/L [facility] Blood specimen (specimen) 02/29/2020 2:20 PM TEXTILE ENGINEER 02/29/2020 2:21 PM TEXTILE ENGINEER Christa JAY LAB BLOOD ORDERABLES Final Result [facility] [address] [place] [address] documented in this encounter Visit Diagnoses Diagnosis 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 Unspecified inflammatory polyarthropathy prison current use 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 documented in this encounter Discontinued Medications Medication Sig Discontinue Reason Start Date End Da te sulfaSALAzine (AZULFIDINE) 500 mg tablet Take 3 tablets (1,500 mg total) by mouth 2 (two) times a day 02/01/2020 02/29/2020 hydrOXYchloroQUINE (PLAQUENIL) 200 mg tabletIndications:Connec tive Tissue Disease,auto immune disease Take 1 tablet (200 mg total) by mouth 2 (two) times a day Reorder 02/01/2020 02/29/2020 methotrexate 2.5 mg tabletIndications:Rheuma toid Arthritis Take 6 Tablets by mouth once weekly Reorder 02/01/2020 02/29/2020 documented as of this encounter Care Teams Security Operations Center Operator Relationship Specialty Start Date End Date Kevin Bowles MD [facility] [address] [place] [address] PCP - General 06/19/16 01/16/24 Eric Crowder MD [address] [place] [address] Rheumatology 01/18/17 documented as of this encounter
--- OUTSIDE RECORDS SUMMARY | 2024-04-01 11:20 | XMS_ITS | Encounter Summary ---
Author Organization [facility] Address [address] [place] [address] Phone Care Team Providers Care Cream Separator Operator Name Role Phone Kevin Bowles MD Primary Care Provider [phone] Eric Crowder MD Unavailable Reason for Visit * Reason Onset Date Comments Wants Prednisone 09/06/2018 Encounter Details Date Type Department Care Team (Late st Contact Info) Description 09/06/[address] [address] Chantel Ziegler Wants Prednisone Social History Tobacco Use Types Packs/Day Years Used Date Smoking Tobacco: Never Alcohol Use Standard Drinks/Week Comments Yes 0 (1 standard drink = 0.6 oz pur e alcohol) Comments Unknown Sex and Gender Information Value Date Recorded Sex Assigned at Not on file Legal Sex Female 9:01 PM DTP OPERATOR Gender Identity Not on file Sexual Orientation Not on file documented as of this encounter Ordered Prescriptions Prescription Sig Dispense Quantity Refills Last Filled Start Date End Date predniSONE (DELTASONE) 20 mg tabletIndications: autoimmune disease Take 1 tablet (20 mg) by mouth daily for 7 days 7 tablet 09/06/2018 09/13/2018 documented in this encounter Miscellaneous Notes * Telephone Encounter - Chantel Ziegler - 09/06/2018 3:24 PM CDT Spoke to pt & relayed Christa's message. Pt wants script sent to [facility] in [place]. Script sent. * Telephone Encounter - Christa Willis PA - 09/06/2018 2:09 PM CDT Discussed with Dr. Crowder. We can give her prednisone 20mg x7days. Which pharmacy would she prefer? * Telephone Encounter - Chantel Ziegler - 09/06/2018 1:56 PM CDT Pt left stating her last labs showed inflammation & she has been having increased pain. She is leaving on a trip soon to see her son prior to his deployment & wants a short course of prednisone sent out. documented in this encounter Plan of Treatment Not on file documented as of this encounter Visit Diagnoses Not on filedocumented in this encounter Care Teams Cream Separator Operator Relationship Specialty Start Date End Date Kevin Bowles MD [address] [place] [address] [address] [place] [address] PCP - General 06/19/16 01/16/24 Eric Crowder MD [address] [facility] [address] [place] [address] Rheumatology 01/18/17 documented as of this encounter
--- OUTSIDE RECORDS SUMMARY | 2024-04-01 11:20 | XMS_ITS | Encounter Summary ---
Author Organization [facility] Facility Care Team Providers Care Security Nurse Name Role Phone Kevin Bowles MD Primary Care Provider [phone] Eric Crowder MD Unavailable [phone] Encounter Details Date Type Department Care Team (Latest Contact Info) Description 11/29/2018 Travel Social History Tobacco Use Types Packs/Day Years Used Date Smoking Tobacco: Never Alcohol Use Standard Drinks/Week Comments Yes 0 (1 standard drink = 0.6 oz pur e alcohol) Comments Unknown Sex and Gender Information Value Date Recorded Sex Assigned at Not on file Legal Sex Female 9:01 PM VISITOR SERVICE 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
--- OUTSIDE RECORDS SUMMARY | 2024-04-01 11:20 | XMS_ITS | Encounter Summary ---
Author Organization [facility] Facility Care Team Providers Care Vacuum Bottle Assembler Name Role Phone Kevin Bowles MD Primary Care Provider [phone] Eric Crowder MD Unavailable [phone] Encounter Details Date Type Department Care Team (Latest Contact Info) Description 05/31/2018 Travel Social History Tobacco Use Types Packs/Day Years Used Date Smoking Tobacco: Never Alcohol Use Standard Drinks/Week Comments Yes 0 (1 standard drink = 0.6 oz pur e alcohol) Comments Unknown Sex and Gender Information Value Date Recorded Sex Assigned at Not on file Legal Sex Female 9:01 PM THEATER EDUCATION TEACHER Gender Identity Not on file Sexual Orientation Not on file documented as of this encounter Plan of Treatment Not on file documented as of this encounter Visit Diagnoses Not on filedocumented in this encounter Care Teams Vacuum Bottle Assembler Relationship Specialty Start Date End Date Kevin Bowles MD [facility] [address] [place] [address] PCP - General 06/19/16 01/16/24 Eric Crowder MD [address] [facility] [address] [place] [address] Rheumatology 01/18/17 documented as of this encounter
--- OUTSIDE RECORDS SUMMARY | 2024-04-01 11:20 | XMS_ITS | Encounter Summary ---
Author Organization [facility] Address [address] [place] [address] Phone Care Team Providers Care Property Field Adjuster Name Role Phone Kevin Bowles MD Primary Care Provider [phone] Eric Crowder MD Unavailable [phone] Reason for Visit * Reason Comments Arthritis Encounter Details Date Type Department Care Team (Latest Contact Info) Description 11/12/2017 1:30 PM CDT Office Visit [facility] [address] [facility] [address] [place] [address] Eric Crowder MD [address] [place] [id number] 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/HCC) (Primary Dx); Paresthesia of both hands; Sicca, unspecified type (CMS/HCC) Social History Tobacco Use Types Packs/Day Years Used Date Smoking Tobacco: Never Alcohol Use Standard Drinks/Week Comments Yes 0 (1 standard drink = 0.6 oz pur e alcohol) Comments Unknown Sex and Gender Information Value Date Recorded Sex Assigned at Not on file Legal Sex Female 9:01 PM SCHOOL LABORATORY TECHNICIAN Gender Identity Not on file Sexual Orientation Not on file documented as of this encounter Last Filed Vital Signs Vital Sign Reading Time Taken Comments Blood Pressure 132/70 11/12/2017 1:40 PM CDT Pulse 88 11/12/2017 1:40 PM CDT Temperature - - Respiratory Rate - - Oxygen Saturation - - Inhaled Oxygen Concentration - - Weight 134.3 kg (296 lb) 11/12/2017 1:40 PM CDT Height 162.6 cm (5' 4 ) 11/12/2017 1:40 PM CDT Body Mass Index 50.81 11/12/2017 1:40 PM CDT documented in this encounter Progress Notes * Eric Crowder MD - 11/12/2017 1:30 PM CDT Images from the original note were not included. Subjective/Objective Patient ID: Monica Buckner is a 47 y.o. female. Chief Complaint Arthritis Here for evaluation of burning sensation in bilat hands for 2 days. Pt describes sensation as a cold burn. No other new issues. She does feel the MTX has helped with her joint complaints. Pt denies other issues or new medications. Review of Systems Constitutional: Negative for chills and fever. HENT: Negative. Eyes: Negative. Respiratory: Negative. Negative for cough and shortness of breath. Cardiovascular: Negative. Negative for chest pain. Gastrointestinal: Negative. Genitourinary: Negative. Musculoskeletal: Positive for arthralgias. Negative for joint swelling. Skin: Negative. Neurological: Positive for numbness. Negative for dizziness and weakness. Hematological: Does not bruise/bleed easily. Physical Exam Constitutional: She is oriented to person, place, and time. She appears well- developed and well-nourished. HENT: Head: Normocephalic. Mouth/Throat: Oropharynx is clear and moist. Eyes: Pupils are equal, round, and reactive to light. Conjunctivae are normal. Neck: Neck supple. Cardiovascular: Normal rate, regular rhythm and normal heart sounds. Exam reveals no gallop and no friction rub. No murmur heard. Pulmonary/Chest: Effort normal and breath sounds normal. Musculoskeletal: No synovitis; no joint or muscle ttp; able to make 100% fist bilat; child life specialist itact; sensation intact throughout hands, fingers Lymphadenopathy: She has no cervical adenopathy. Neurological: She is alert and oriented to person, place, and time. Skin: Skin is warm and dry. Capillary refill takes less than 2 seconds. No rash noted. No erythema. 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 Paresthesia of both hands (R20.2) Assessment & Plan: She had abrupt onset of burning cold sensation between the MCP and PIP joints the last 2 days. Symptoms are constant and she does not know any known triggers. Her sensation is intact on exam and skinis appropriately warm with capillary refill less than [...] specific intervention at this time although if thisprogresses will consider an EMG/nerve conduction study versus an ultrasound of the hand and wrist for additional evaluation. Sicca, unspecified type (CMS/HCC) (M35.00) Assessment & Plan: Serology neg for Sjogren's. Has eye drops per ophth which has helped. Symptoms stable. Dr. Eric Crowder dictating using fluency direct. Cement Conveyor Operator variances may occur. documented in this encounter Miscellaneous Notes * Assessment & Plan Note - Eric Crowder MD - 11/12/2017 5:00 PM CDT Associated Problem(s): Sicca (HCC) Serology neg for Sjogren's. Has eye drops per ophth which has helped. Symptoms stable. * Assessment & Plan Note - Eric Crowder MD - 11/12/2017 2:04 PM CDT Associated Problem(s): Paresthesia of both hands She had abrupt onset of burning cold sensation between the MCP and PIP joints the last 2 days. Symptoms are constant and she does not know any known triggers. Her sensation is intact on exam and skinis appropriately warm with capillary refill less than [...] specific intervention at this time although if thisprogresses will consider an EMG/nerve conduction study versus an ultrasound of the hand and wrist for additional evaluation. * Assessment & Plan Note - Eric Crowder MD - 11/12/2017 2:03 PM CDT Associated Problem(s): 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/HCC) (HCC) She is doing well with essentially complete [...] appointment scheduled next month for follow up. 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 Unspecified inflammatory polyarthropathy Paresthesia of both hands Sicca, unspecified type (HCC) documented in this encounter Discontinued Medications Medication Sig Discontinue Reason Start Date End Da te hydroxychloroquine (PLAQUENIL) 200 mg tablet 05/28/2017 11/12/2017 documented as of this encounter Care Teams Property Field Adjuster Relationship Specialty Start Date End Date Kevin Bowles MD [facility] [address] [place] [address] PCP - General 06/19/16 01/16/24 Eric Crowder MD [address] [facility] [address] [place] [address] Rheumatology 01/18/17 documented as of this encounter
--- OUTSIDE RECORDS SUMMARY | 2024-04-01 11:20 | XMS_ITS | Encounter Summary ---
Author Organization [facility] Address [address] [place] [address] Phone Care Team Providers Care Color Depositing Machine Tender Name Role Phone Kevin Bowles MD Primary Care Provider [phone] Eric Crowder MD Unavailable [phone] Reason for Visit * Reason Comments Arthritis Encounter Details Date Type Department Care Team (Latest Contact Info) Description 02/28/2018 11:15 AM GREEK PROFESSOR Office Visit [facility] [address] [address] Christa Bueno PA Formerly [facility] [place] [address] 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/HCC) (Primary Dx) Social History Tobacco Use Types Packs/Day Years Used Date Smoking Tobacco: Never Alcohol Use Standard Drinks/Week Comments Yes 0 (1 standard drink = 0.6 oz pur e alcohol) Comments Unknown Sex and Gender Information Value Date Recorded Sex Assigned at Not on file Legal Sex Female 9:01 PM GREEK PROFESSOR Gender Identity Not on file Sexual Orientation Not on file documented as of this encounter Last Filed Vital Signs Vital Sign Reading Time Taken Comments Blood Pressure 136/78 02/28/2018 11:12 AM GREEK PROFESSOR Pulse 94 02/28/2018 11:12 AM GREEK PROFESSOR Temperature - - Respiratory Rate - - Oxygen Saturation - - Inhaled Oxygen Concentration - - Weight 134.3 kg (296 lb) 02/28/2018 11:12 AM GREEK PROFESSOR Height 162.6 cm (5' 4 ) 02/28/2018 11:12 AM GREEK PROFESSOR Body Mass Index 50.81 02/28/2018 11:12 AM GREEK PROFESSOR documented in this encounter Progress Notes * Christa Willis PA - 02/28/2018 11:15 AM CST Images from the original note were not included. Subjective/Objective Patient ID: Monica Buckner is a 47 y.o. female. Chief Complaint Arthritis HPI Returns for routine follow up. Patient notes that her joints have been feeling better over the past few weeks. Still having some pain and stiffness, however minimal today. Has been having some sinus congestion and will see her pcp. Most recent labs showed a mild anemia and her manager regional did a panel for further workup that was negative per patient report. MTX 15mg weekly (could increase to 20mg), FA 1mg daily, HCQ 200mg BID, ssz 1500mg BID. Labs standing order; last labs 02/23 Denies fevers, infections, rashes, mouth sores, cough, dyspnea, n/v. Joint pain today is . AM stiffness = 1 hour Review of Systems Constitutional: Positive for fatigue. Negative for chills and fever. HENT: Negative for congestion and mouth sores. Respiratory: Negative for cough and shortness of breath. Cardiovascular: Negative for chest pain. Gastrointestinal: Negative for abdominal pain, diarrhea, nausea and vomiting. Musculoskeletal: Positive for arthralgias. Negative for myalgias. Skin: Negative for rash. Physical Exam Constitutional: oriented to person, place, and time. appears well-developed and well-nourished. HENT: Head: Normocephalic. Mouth/Throat: Oropharynx is clear and moist. Eyes: Conjunctivae are normal. Pupils are equal, round, and reactive to light. Cardiovascular: Normal rate, regular rhythm and normal heart sounds. No murmur heard. Pulmonary/Chest: Effort normal and breath sounds normal. no wheezes. no rales. Musculoskeletal: See cdai. 1st rt mtp sw, bilateral midfoot ttp. Lymphadenopathy: no cervical adenopathy. Neurological: alert and oriented to person, place, and time. Skin: Skin is warm and dry. No rash noted. Psychiatric: normal mood and affect. speech is normal and behavior is normal. Cognition and memory are normal. Assessment/Plan Diagnoses and all orders for this visit: 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/HCC) (Primary) Assessment & Plan: Low cdai. Patient reports that her joints [...] up in 3 months. Sooner if needed. Cosigned by Eric Crowder MD at 02/28/2018 5:07 PM GREEK PROFESSOR K PROFESSOR K PROFESSOR documented in this encounter Miscellaneous Notes * Assessment & Plan Note - Christa Willis PA - 02/28/2018 11:39 AM CSTAssociated Problem(s): 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/HCC) (HCC) Low cdai. Patient reports that her joints [...] up in 3 months. Sooner if needed. K PROFESSOR K PROFESSOR K PROFESSOR K PROFESSOR 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 Unspecified inflammatory polyarthropathy documented in this encounter Care Teams Color Depositing Machine Tender Relationship Specialty Start Date End Date Kevin Bowles MD [facility] [address] PCP - General 06/19/16 01/16/24 Eric Crowder MD [address] [facility] [address] [place] [address] Rheumatology 01/18/17 documented as of this encounter
--- OUTSIDE RECORDS SUMMARY | 2024-04-01 11:20 | XMS_ITS | Encounter Summary ---
Author Organization [facility] Address [address] [place] [address] Phone Care Team Providers Care Biometry Teacher Name Role Phone Kevin Bowles MD Primary Care Provider [phone] Reason for Visit * Reason Comments Arthritis Encounter Details Date Type Department Care Team (Latest Contact Info) Description 09/28/2016 10:45 AM CDT Office Visit [place] [id number] [address] Eric Crowder MD [address] [place] [id number] 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/HCC) (Primary Dx); Sicca, unspecified type; Low vitamin D level; pain management specialist current use 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 Social History Tobacco Use Types Packs/Day Years Used Date Smoking Tobacco: Never Alcohol Use Standard Drinks/Week Comments Yes 0 (1 standard drink = 0.6 oz pur e alcohol) Comments Unknown Sex and Gender Information Value Date Recorded Sex Assigned at Not on file Legal Sex Female 9:01 PM CHALK EXTRUDING MACHINE OPERATOR Gender Identity Not on file Sexual Orientation Not on file documented as of this encounter Last Filed Vital Signs Vital Sign Reading Time Taken Comments Blood Pressure 120/80 09/28/2016 10:54 AM CDT Pulse 85 09/28/2016 10:54 AM CDT Temperature - - Respiratory Rate - - Oxygen Saturation - - Inhaled Oxygen Concentration - - Weight 134.7 kg (297 lb) 09/28/2016 10:54 AM CDT Height - - Body Mass Index 50.19 06/30/2016 10:57 AM CDT documented in this encounter Progress Notes * Eric Crowder MD - 09/28/2016 10:45 AM CDT Subjective/Objective Patient ID: Monica Buckner is a 46 y.o. female. Chief Complaint Arthritis Doing ok for the most part. Hands feel warm over skin last couple of weeks, no swelling or erythema. Skin just feels hot at times. Had missed doses of SSZ and HCQ as would forget. Has had increased stiffness when missed dosing although has been better recently. Review of Systems Constitutional: Negative for chills and fever. HENT: Negative. Eyes: Negative. Respiratory: Negative. Negative for cough and shortness of breath. Cardiovascular: Negative. Negative for chest pain. Gastrointestinal: Negative. Genitourinary: Negative. Musculoskeletal: Positive for arthralgias. Negative for joint swelling and myalgias. Skin: Negative. Neurological: Negative for dizziness and weakness. Hematological: Does not bruise/bleed easily. Physical Exam Constitutional: She is oriented to person, place, and time. She appears well- developed and well-nourished. HENT: Head: Normocephalic. Mouth/Throat: Oropharynx is clear and moist. Eyes: Conjunctivae are normal. Pupils are equal, round, and reactive to light. Neck: Neck supple. Cardiovascular: Normal rate, regular rhythm and normal heart sounds. Exam reveals no gallop and no friction rub. No murmur heard. Pulmonary/Chest: Effort normal and breath sounds normal. Musculoskeletal: No synovitis; mild T spine TTP; no peripheral joint, muscle TTP; strength 5/5 all ext Lymphadenopathy: She has no cervical adenopathy. Neurological: She is alert and oriented to person, place, and time. Assessment/Plan Diagnoses and all orders for this visit: 1. 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/HCC) (Primary) Assessment & Plan: CDAI 6: Low disease activity Doing well overall with minimal complaints and no significant exam findings. Cont SSZ 1500 mg bid, HCQ 200 mg bid. Cont routine eye exams while on HCQ. Labs as below. F/u 3 months Orders: - Comprehensive metabolic panel; Future - CRP (acute phase); Future - Erythrocyte sedimentation rate; Future - CBC with auto differential; Future 2. Sicca, unspecified type Assessment & Plan: Serology neg for Sjogren's. Has eye drops per ophth which has helped. Symptoms stable. 3. Low vitamin D level Assessment & Plan: Vit D 21 per labs 06/2016. On replacement therapy 50,000 IU weekly. Will recheck level. Orders: - 1,25 Dihydroxycholecalciferol; Future 4. pain management specialist current use 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 - Comprehensive metabolic panel; Future - CBC with auto differential; Future documented in this encounter Miscellaneous Notes * Assessment & Plan Note - Eric Crowder MD - 09/28/2016 4:48 PM CDT Associated Problem(s): Low vitamin D level Vit D 21 per labs 06/2016. On replacement therapy 50,000 IU weekly. Will recheck level. * Assessment & Plan Note - Eric Crowder MD - 09/28/2016 4:47 PM CDT Associated Problem(s): Sicca (HCC) Serology neg for Sjogren's. Has eye drops per ophth which has helped. Symptoms stable. * Assessment & Plan Note - Eric Crowder MD - 09/28/2016 11:36 AM CDT Associated Problem(s): 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/HCC) (HCC) CDAI 6: Low disease activity Doing well overall with minimal complaints and no significant exam findings. Cont SSZ 1500 mg bid, HCQ 200 mg bid. Cont routine eye exams while on HCQ. Labs as below. F/u 3 months documented in this encounter Plan of Treatment Scheduled Orders Name Type Priority Associated Diagnoses Orde r Schedule 1,25 Dihydroxycholecalciferol Lab Routine Low vitamin D level 1 Occurrences starting 09/28/2016 until 09/28/2017 documented as of this encounter Procedures Procedure Name Priority Date/Time Associated Diagnosis Comments CBC WITH AUTO DIFFERENTIAL Routine 11/12/2016 12:00 PM CDT 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/HCC) detention current use 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 ERYTHROCYTE SEDIMENTATION RATE Routine 11/12/2016 12:00 PM CDT 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/HCC) CRP (ACUTE PHASE) Routine 11/12/2016 12: 00 PM CDT 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/HCC) COMPREHENSIVE METABOLIC PANEL Routine 11/12/2016 12:00 PM CDT 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/HCC) detention current use 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 documented in this encounter Results * (ABNORMAL) CBC with auto differential (11/12/2016 12:00 PM CDT) WBC 5.9 3.8 - 10.8 Thousand/ uL [facility] RBC, POC 4.43 3.80 - 5.10 Million/u L [facility] Hgb 10.8(L) 11.7 - 15.5 g/dL [facility] Hct 33.4(L) 35.0 - 45.0 % [facility] MCV 75.5(L) 80.0 - 100.0 fL [facility] MCH 24.4(L) 27.0 - 33.0 pg [facility] MCHC 32.3 32.0 - 36.0 g/dL [facility] Rdw 16.8(H) 11.0 - 15.0 % [facility] Platelets 333 140 - 400 Thousand/ uL [facility] MPV 7.2(L) 7.5 - 12.5 fL [facility] Neutrophils, abs 2,867 1,500 - 7,800 cells/uL [facility] Neutrophil bands, abs CANCELED 0 - 750 cells/uL [facility] Comment:Result canceled by t he ancillary Metamyelocytes, abs CANCELED 0 cells/uL [facility] Comment:Result canceled by t he ancillary Absolute Myelocytes CANCELED 0 cells/uL [facility] Comment:Result canceled by t he ancillary Promyelocytes, abs CANCELED 0 cells/uL [facility] [place] Comment:Result canceled by t he ancillary Lymphocytes, abs 2,254 850 - 3,900 cells/uL [facility] Monocyte abs 555 200 - 950 cells/uL [facility] Eosinophils, abs 207 15 - 500 cells/uL [facility] Basophils, abs 18 0 - 200 cells/uL [facility] Blast, cell CANCELED 0 cells/uL [facility] Comment:Result canceled by t he ancillary NRBC abs CANCELED 0 cells/uL [facility] Comment:Result canceled by t he ancillary Neutrophils 48.6 % [facility] Neutrophilic bands CANCELED % [facility] Comment:Result canceled by t he ancillary Metamyelocyte pct CANCELED % [facility] Comment:Result canceled by t he ancillary Myelocyte pct CANCELED % [facility] Comment:Result canceled by t he ancillary Promyelocyte pct CANCELED % [facility] Comment:Result canceled by t he ancillary Lymphocyte pct 38.2 % [facility] Reactive lymph CANCELED 0 - 10 % [facility] Comment:Result canceled by t he ancillary Monocytes 9.4 % [facility] Eosinophils 3.5 % [facility] Basophils 0.3 % [facility] Blast pct CANCELED % [facility] Comment:Result canceled by t he ancillary NRBC CANCELED 0 /100 WBC [facility] Comment:Result canceled by t he ancillary Comment CANCELED [facility] Comment:Result canceled by t he ancillary Blood specimen (specimen) 11/12/2016 12:00 PM CDT 11/12/2016 12:01 PM CDT Narrative Resulting Agency Comment Performing Organization Information: ?Site ID: ?[facility] ?Address: [facility] [place] [address] ?Director: Dilia Breaux MD Result [facility] Eric Crowder MD LAB BLOOD ORDERABLES Fin al Result Performing Organization Address [facility] de Phone Number [facility] [place] [place] * Erythrocyte sedimentation rate (11/12/2016 12:00 PM CDT) Erythrocyte sedimentation rate 19 < OR = 20 mm/h [facility] - Blood specimen (specimen) 11/12/2016 12:00 PM CDT 11/12/2016 12:01 PM CDT Narrative Resulting Agency Comment Performing Organization Information: ?Site ID: ?Name[facility] ?Address: [address] [place] [address] [place] [address] ?Director: Dilia Breaux MD Result [facility] Eric Crowder MD LAB BLOOD ORDERABLES Fin al Result Performing Organization Address [facility] de Phone Number [facility] [place], [place] * CRP (acute phase) (11/12/2016 12:00 PM CDT) C-RP 0.54 <0.80 mg/dL [facility] [place] Comment: Please be advised that patients taking Carboxypenicillins may exhibit falsely decreased C-Reactive Protein levels due to an analytical interference in this assay. Blood specimen (specimen) 11/12/2016 12:00 PM CDT 11/12/2016 12:01 PM CDT Narrative Resulting Agency Comment Performing Organization Information: ?Site ID: [place] ?Name: [facility] ?Address: [address] [id number] ?Director: Todd Corrigan D.O., MPH Eric Crowder MD LAB BLOOD ORDERABLES Fin al Result Performing Organization Address [facility] Co de Phone Number [facility] [place] * (ABNORMAL) Comprehensive metabolic panel (11/12/2016 12:00 PM CDT) Glucose 100(H) 65 - 99 mg/dL [facility] [place] Comment: ? Fasting reference interval For someone without known diabetes, a glucose value between 100 and 125 mg/dL is consistent with prediabetes and should be confirmed with a follow-up test. BUN 12 7 - 25 mg/dL [facility] [place] Creatinine 0.71 0.50 - 1.10 mg/dL [facility] [place] eGFR NON-AFR. B[place] 102 > OR = 60 mL/min/1. 73m2 [facility] [place] EGFR 118 > OR = 60 mL/min/1. 73m2 [facility] [place] BUN/creat ratio NOT APPLICABLE 6 - 22 (calc) [facility] [place] Sodium 137 135 - 146 mmol/L [facility] [place] Potassium, pl 4.2 3.5 - 5.3 mmol/L [facility] [place] Chloride 105 98 - 110 mmol/L [facility] [place] CO2 26 20 - 31 mmol/L [facility] [place] Calcium 9.6 8.6 - 10.2 mg/dL [facility] [place] Protein, sr 6.9 6.1 - 8.1 g/dL [facility] [place] Albumin 4.2 3.6 - 5.1 g/dL [facility] [place] Globulin 2.7 1.9 - 3.7 g/dL (calc) [facility] [place] Alb/glob ratio 1.6 1.0 - 2.5 (calc) [facility] [place] Bilirubin, total 0.3 0.2 - 1.2 mg/dL [facility] [place] Alk phos 62 33 - 115 U/L [facility] [place] AST 16 10 - 35 U/L [facility] [place] ALT (SGPT) 15 6 - 29 U/L [facility] [place] Blood specimen (specimen) 11/12/2016 12:00 PM CDT 11/12/2016 12:01 PM CDT Narrative Resulting Agency Comment Performing Organization Information: ?Site ID: [place] ?Name: [facility] ?Address: [address] [id number] ?Director: Todd Corrigan D.O., MPH Eric Crowder MD LAB BLOOD ORDERABLES Fin al Result [facility] [place] documented in this encounter Visit Diagnoses Diagnosis 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 Unspecified inflammatory polyarthropathy Sicca, unspecified type (HCC) Low vitamin D level pain management specialist current use 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 documented in this encounter Care Teams Biometry Teacher Relationship Specialty Start Date End Date Kevin Bowles MD [address] [facility] [address] [address] PCP - General 06/19/16 01/16/24 documented as of this encounter
--- OUTSIDE RECORDS SUMMARY | 2024-04-01 11:20 | XMS_ITS | Encounter Summary ---
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 Operator Name Role Phone Unavailable Primary Care Provider Unavailabl e Encounter Details Date Type Department Care Team (Late st Contact Info) Description 05/22/2015 8:09 AM CRUSHER AND BINDER OPERATOR - 05/22/2015 11:59 PM CRUSHER AND BINDER OPERATOR Hospital Encounter [facility] Kevin Bowles MD [id number] [facility] [address] [address] Benign neoplasm of connective and other soft tissue of trunk, unspecified Social History Tobacco Use Types Packs/Day Years Used Date Smoking Tobacco: Never Assessed Comments Unknown Sex and Gender Information Value Date Recorded Sex Assigned at Not on file Legal Sex Female 9:01 PM CRUSHER AND BINDER OPERATOR Gender Identity Not on file Sexual Orientation Not on file documented as of this encounter Plan of Treatment Not on file documented as of this encounter Procedures Procedure Name Priority Date/Time Associated Diagnosis Comments US BREAST LIMITED Routine 05/22/2015 9:0 8 AM CRUSHER AND BINDER OPERATOR US BREAST LIMITED Routine 05/22/2015 9:0 8 AM CRUSHER AND BINDER OPERATOR documented in this encounter Results * US Breast Limited (05/22/2015 9:08 AM CRUSHER AND BINDER OPERATOR) Anatomical Region Laterality Modality Breast N/A Ultrasound 05/22/2015 9:08 AM CRUSHER AND BINDER OPERATOR Narrative 05/22/2015 4:57 PM CRUSHER AND BINDER OPERATOR BILATERAL BREAST ULTRASOUND LIMITED CLINICAL HISTORY: 44-year-old female for follow-up imaging of a benign-appearing mass in the left breast 2:30 position. Targeted ultrasound of the palpable mass in the right breast 2 o'clock position again demonstrates a stable, benign lipoma measuring 3.8 cm. ??In the left breast 2:30 1A location there is an unchanged, smooth, oval hypoechoic solid mass measuring 8 x 7 x 5 mm. ??There is no internal vascularity or posterior acoustic shadowing. ??Survey of the left axilla is unremarkable. IMPRESSION: Benign right lipoma. ??No further imaging is necessary. 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 ??No further workup is necessary. ?? The patient should return for bilateral screening mammography in November,. BI-RADS Category 2: Benign findings Results of the examination were conveyed to the patient at the time of her visit. Overall assessment: Benign Edited by: OLIVERIO DIAZ Electronically signed by: Carol Guillaume M.D. Radiologist: CAROL GUILLAUME MD ?? Attending: ??KEVIN BOWLES Requesting: KEVIN BOWLES Requesting Fax: ?? Requesting ID: [id number] Attending Fax: ?? Attending ID: ?? [id number] Completed Time: ?? 05/22/2015 09:08 AM Dictated Time: ?05/22/2015 09:22 AM Transcribed Time: 05/22/2015 09:48 AM Signed by: ?CAROL GUILLAUME MD ?? on 05/22/2015 4:57 PM Report To 1 ID: [id number] Report To 1 Name: BISI PENG Report To 1 FAX: Report To 2 ID: Report To 2 Name: , Report To 2 FAX: Report To 3 ID: Report To 3 Name: , Report To 3 FAX: NextGen Order #: Procedure Note Provider, MD Miles - 07/26/2016 BILATERAL BREAST ULTRASOUND LIMITED CLINICAL HISTORY: 44-year-old female for follow-up imaging of a benign-appearing mass in the left breast 2:30 position. Targeted ultrasound of the palpable mass in the right breast 2 o'clock position again demonstrates a stable, benign lipoma measuring 3.8 cm. In the left breast 2:30 1A location there is an unchanged, smooth, oval hypoechoic solid mass measuring 8 x 7 x 5 mm. There is no internal vascularity or posterior acoustic shadowing. Survey of the left axilla is unremarkable. IMPRESSION: Benign right lipoma. No further imaging is necessary. 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 No further workup is necessary. The patient should return for bilateral screening mammography in November,. BI-RADS Category 2: Benign findings Results of the examination were conveyed to the patient at the time of her visit. Overall assessment: Benign Edited by: OLIVERIO DIAZ Electronically signed by: Carol Guillaume M.D. Radiologist: CAROL GUILLAUME MD Attending: KEVIN BOWLES Requesting: KEVIN BOWLES Requesting Requesting ID: [id number] Attending Attending ID: [id number] Completed Time: 05/22/2015 09:08 AM Dictated Time: 05/22/2015 09:22 AM Transcribed Time: 05/22/2015 09:48 AM Signed by: CAROL GUILLAUME MD on 05/22/2015 4:57 PM Report To 1 ID: [id number] Report To 1 Name: BISI PENG Report To 1 FAX: Report To 2 ID: Report To 2 Name: , Report To 2 FAX: Report To 3 ID: Report To 3 Name: , Report To 3 FAX: NextGen Order #: us Historical Provider MD THORNTON US PROCEDURES Final R esult * US Breast Limited (05/22/2015 9:08 AM CRUSHER AND BINDER OPERATOR) Anatomical Region Laterality Modality Breast N/A Ultrasound 05/22/2015 9:08 AM CRUSHER AND BINDER OPERATOR Narrative 05/22/2015 4:57 PM CRUSHER AND BINDER OPERATOR BILATERAL BREAST ULTRASOUND LIMITED CLINICAL HISTORY: 44-year-old female for follow-up imaging of a benign-appearing mass in the left breast 2:30 position. Targeted ultrasound of the palpable mass in the right breast 2 o'clock position again demonstrates a stable, benign lipoma measuring 3.8 cm. ??In the left breast 2:30 1A location there is an unchanged, smooth, oval hypoechoic solid mass measuring 8 x 7 x 5 mm. ??There is no internal vascularity or posterior acoustic shadowing. ??Survey of the left axilla is unremarkable. IMPRESSION: Benign right lipoma. ??No further imaging is necessary. 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 ??No further workup is necessary. ?? The patient should return for bilateral screening mammography in November,. BI-RADS Category 2: Benign findings Results of the examination were conveyed to the patient at the time of her visit. Overall assessment: Benign Edited by: OLIVERIO DIAZ Electronically signed by: Carol Guillaume M.D. Radiologist: CAROL GUILLAUME MD ?? Attending: ??KEVIN BOWLES Requesting: KEVIN BOWLES Requesting Fax: ?? Requesting ID: [id number] Attending Fax: ?? Attending ID: ?? [id number] Completed Time: ?? 05/22/2015 09:08 AM Dictated Time: ?N/A Transcribed Time: 05/22/2015 09:48 AM Signed by: ?CAROL GUILLAUME MD ?? on 05/22/2015 4:57 PM Report To 1 ID: [id number] Report To 1 Name: BISI PENG Report To 1 FAX: Report To 2 ID: Report To 2 Name: , Report To 2 FAX: Report To 3 ID: Report To 3 Name: , Report To 3 FAX: NextGen Order #: Procedure Note Provider, MD Miles - 07/26/2016 BILATERAL BREAST ULTRASOUND LIMITED CLINICAL HISTORY: 44-year-old female for follow-up imaging of a benign-appearing mass in the left breast 2:30 position. Targeted ultrasound of the palpable mass in the right breast 2 o'clock position again demonstrates a stable, benign lipoma measuring 3.8 cm. In the left breast 2:30 1A location there is an unchanged, smooth, oval hypoechoic solid mass measuring 8 x 7 x 5 mm. There is no internal vascularity or posterior acoustic shadowing. Survey of the left axilla is unremarkable. IMPRESSION: Benign right lipoma. No further imaging is necessary. 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 No further workup is necessary. The patient should return for bilateral screening mammography in November,. BI-RADS Category 2: Benign findings Results of the examination were conveyed to the patient at the time of her visit. Overall assessment: Benign Edited by: OLIVERIO DIAZ Electronically signed by: Carol Guillaume M.D. Radiologist: CAROL GUILLAUME MD Attending: KEVIN BOWLES Requesting: KEVIN BOWLES Requesting Requesting ID: [id number] Attending Attending ID: [id number] Completed Time: 05/22/2015 09:08 AM Dictated Time: N/A Transcribed Time: 05/22/2015 09:48 AM Signed by: CAROL GUILLAUME MD on 05/22/2015 4:57 PM Report To 1 ID: [id number] Report To 1 Name: BISI PENG Report To 1 FAX: Report To 2 ID: Report To 2 Name: , Report To 2 FAX: Report To 3 ID: Report To 3 Name: , Report To 3 FAX: NextGen Order #: us Historical Provider MD THORNTON US PROCEDURES Final R esult documented in this encounter Visit Diagnoses Diagnosis Benign neoplasm of 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
--- OUTSIDE RECORDS SUMMARY | 2024-04-01 11:20 | XMS_ITS | Encounter Summary ---
Author Organization [facility] Address [address] [place] [phone] Phone Care Team Providers Care Field Observer Name Role Phone Kevin Bowles MD Primary Care Provider [phone] Eric Crowder MD Unavailable [phone] Reason for Referral * Diagnostic Imaging (Routine) - Closed Specialty Diagnoses / Procedures Referred By Contac t Referred To Contact Diagnoses 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/HCC) (HCC) Procedures US Hand Complete Erci Crowder MD Phone: tel: fax: Referral ID Status Reason Start Date Expiration Date Visits Re quested Visits Authorized [id number] Closed 06/01/2017 11/28/2017 1 1 Reason for Visit * Reason Comments Arthritis Encounter Details Date Type Department Care Team (Latest Contact Info) Description 06/01/2017 11:15 AM CDT Office Visit [facility] [address] [facility] [address] [place] [address] Eric Crowder MD [address] [place] [id number] 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/HCC) (Primary Dx); 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 Social History Tobacco Use Types Packs/Day Years Used Date Smoking Tobacco: Never Alcohol Use Standard Drinks/Week Comments Yes 0 (1 standard drink = 0.6 oz pur e alcohol) Comments Unknown Sex and Gender Information Value Date Recorded Sex Assigned at Not on file Legal Sex Female 9:01 PM [employer] Gender Identity Not on file Sexual Orientation Not on file documented as of this encounter Last Filed Vital Signs Vital Sign Reading Time Taken Comments Blood Pressure 128/70 06/01/2017 11:03 AM CDT Pulse 95 06/01/2017 11:03 AM CDT Temperature - - Respiratory Rate - - Oxygen Saturation - - Inhaled Oxygen Concentration - - Weight 133.8 kg (295 lb) 06/01/2017 11:03 AM CDT Height 162.6 cm (5' 4 ) 06/01/2017 11:03 AM CDT Body Mass Index 50.64 06/01/2017 11:03 AM CDT documented in this encounter Progress Notes * Eric Crowder MD - 06/01/2017 11:15 AM CDT Images from the original note were not included. Subjective/Objective Patient ID: Monica Buckner is a 46 y.o. female. Chief Complaint Arthritis Having increased pain in hands and left knee since last visit. Symptoms worse in AM and starts to loosen up although with busy days pain is worse. No obvious swelling. Remains on SSZ and HCQ. Has no had any recent fevers, infections. Review of Systems Constitutional: Positive for fatigue. Negative for chills and fever. HENT: Negative. Eyes: Negative. Respiratory: Negative. Negative for cough and shortness of breath. Cardiovascular: Negative. Negative for chest pain. Gastrointestinal: Negative. Genitourinary: Negative. Musculoskeletal: Positive for arthralgias. Negative for joint swelling. Skin: Negative. Neurological: Negative for dizziness and weakness. Hematological: Does not bruise/bleed easily. Psychiatric/Behavioral: Positive for sleep disturbance. Physical Exam Constitutional: She is oriented to [...] Effort normal and breath sounds normal. 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 Neurological: She is alert and oriented to person, place, and time. Assessment/Plan Diagnoses and all orders for this visit: 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/HCC) (Primary) Assessment & Plan: Having increased pain in bilat hands (L>R) [...] mg bid and HCQ 200 mg bid. Controutine eye exams while on HCQ. F/u 3 months. 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 Controutine eye exams while on HCQ. F/u 3 months. 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 q 8 weeks for 10 Occurrences starting 06/01/2017 until 06/01/2018 Erythrocyte sedimentation rate Lab Routine 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/HCC) q 8 weeks for 10 Occurrences starting 06/01/2017 until 06/01/2018 CRP (acute phase) Lab Routine 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/HCC) q8 weeks for 10 Occurrences starting 06/01/2017 until 06/01/2018, 1 completed documented as of this encounter Procedures Procedure Name Priority Date/Time Associated Diagnosis Comments CBC WITH AUTO DIFFERENTIAL Routine 08/30/2017 12:15 PM CDT 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/HCC) 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 ERYTHROCYTE SEDIMENTATION RATE Routine 08/30/2017 12:15 PM CDT 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/HCC) CRP (ACUTE PHASE) Routine 08/30/2017 12: 15 PM CDT 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/HCC) COMPREHENSIVE METABOLIC PANEL Routine 08/30/2017 12:15 PM CDT 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/HCC) halfway current use 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 CBC WITH AUTO DIFFERENTIAL Routine 06/01/2017 1:47 PM CDT ERYTHROCYTE SEDIMENTATION RATE Routine 06/01/2017 1:47 PM CDT CRP (ACUTE PHASE) Routine 06/01/2017 1:4 7 PM CDT 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/HCC) COMPREHENSIVE METABOLIC PANEL Routine 06/01/2017 1:47 PM CDT MISCELLANEOUS LAB TEST Routine 06/01/2017 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/HCC) documented in this encounter Results * (ABNORMAL) CRP (acute phase) (08/30/2017 12:15 PM CDT) C-RP 10.3(H) <8.0 mg/L [facility] [place] Blood specimen (specimen) 08/30/2017 12:15 PM CDT 08/30/2017 12:16 PM CDT Narrative [facility] - 08/31/2017 11:35 AM CDT FASTING:YES FASTING: YES Resulting Agency Comment Performing Organization Information: ?Site ID: [place] ?Name: [facility] ?Address: [address] [place] [address] [place] [address] ?Director: Todd Corrigan D.O., MPH Eric Crowder MD LAB BLOOD ORDERABLES Fin al Result [facility] [place] * Erythrocyte sedimentation rate (08/30/2017 12:15 PM CDT) Erythrocyte sedimentation rate 19 < OR = 20 mm/h [facility] [place] Blood specimen (specimen) 08/30/2017 12:15 PM CDT 08/30/2017 12:16 PM CDT Narrative [facility] - 08/31/2017 11:35 AM CDT FASTING:YES FASTING: YES Resulting Agency Comment Performing Organization Information: ?Site ID: [place] ?Name: [facility] ?Address: [facility] [place] [address] ?Director: Todd Corrigan D.O. MPH Eric Crowder MD LAB BLOOD ORDERABLES Fin al Result [facility] [place] * CBC with auto differential (08/30/2017 12:15 PM CDT) WBC 5.2 3.8 - 10.8 Thousand/ uL [facility] [place] RBC, POC 4.43 3.80 - 5.10 Million/u L [facility] [place] Hgb 12.2 11.7 - 15.5 g/dL [facility] [place] Hct 36.6 35.0 - 45.0 % [facility] [place] MCV 82.6 80.0 - 100.0 fL [facility] [place] MCH 27.5 27.0 - 33.0 pg [facility] [place] MCHC 33.3 32.0 - 36.0 g/dL [facility] [place] Rdw 14.1 11.0 - 15.0 % [facility] [place] Platelets 316 140 - 400 Thousand/ uL [facility] [place] MPV 9.3 7.5 - 12.5 fL [facility] [place] Neutrophils, abs 2,590 1,500 - 7,800 cells/uL [facility] [place] Neutrophil bands, abs CANCELED 0 - 750 cells/uL [facility] [place] Comment:Result canceled by t he ancillary Metamyelocytes, abs CANCELED 0 cells/uL [facility] [place] Comment:Result canceled by t he ancillary Absolute Myelocytes CANCELED 0 cells/uL [facility] [place] Comment:Result canceled by t he ancillary Promyelocytes, abs CANCELED 0 cells/uL [facility] [place] Comment:Result canceled by t he ancillary Lymphocytes, abs 2,080 850 - 3,900 cells/uL [facility] [place] Monocyte abs 432 200 - 950 cells/uL [facility] [place] Eosinophils, abs 78 15 - 500 cells/uL [facility] [place] Basophils, abs 21 0 - 200 cells/uL [facility] [place] Blast, cell CANCELED 0 cells/uL [facility] [place] Comment:Result canceled by t he ancillary NRBC abs CANCELED 0 cells/uL [facility] [place] Comment:Result canceled by t he ancillary Neutrophils 49.8 % [facility] [place] Neutrophilic bands CANCELED % [facility] [place] Comment:Result canceled by t he ancillary Metamyelocyte pct CANCELED % [facility] [place] Comment:Result canceled by t he ancillary Myelocyte pct CANCELED % [facility] [place] Comment:Result canceled by t he ancillary Promyelocyte pct CANCELED % [facility] [place] Comment:Result canceled by t he ancillary Lymphocyte pct 40.0 % [facility] [place] Reactive lymph CANCELED 0 - 10 % [facility] [place] Comment:Result canceled by t he ancillary Monocytes 8.3 % [facility] [place] Eosinophils 1.5 % [facility] [place] Basophils 0.4 % [facility] [place] Blast pct CANCELED % [facility] [place] Comment:Result canceled by t he ancillary NRBC CANCELED 0 /100 WBC [facility] [place] Comment:Result canceled by t he ancillary Comment CANCELED [facility] [place] Comment:Result canceled by t he ancillary Blood specimen (specimen) 08/30/2017 12:15 PM CDT 08/30/2017 12:16 PM CDT Narrative [facility] - 08/31/2017 11:35 AM CDT FASTING:YES FASTING: YES Resulting Agency Comment Performing Organization Information: ?Site ID: [place] ?Name: [facility] ?Address: [address] [place] [address] [place] [address] ?Director: Todd Corrigan D.O., MPH us Eric Crowder MD LAB BLOOD ORDERABLES Fin al Result [facility] [place], [place] * Comprehensive metabolic panel (08/30/2017 12:15 PM CDT) Glucose 95 65 - 99 mg/dL [facility] [place] Comment: ? Fasting reference interval BUN 12 7 - 25 mg/dL [facility] [place] Creatinine 0.77 0.50 - 1.10 mg/dL [facility] [place] eGFR NON-AFR. GHANAIAN 92 > OR = 60 mL/min/1. 73m2 [facility] [place] EGFR 107 > OR = 60 mL/min/1. 73m2 [facility] [place] BUN/creat ratio NOT APPLICABLE 6 - 22 (calc) [facility] [place] Sodium 140 135 - 146 mmol/L [facility] [place] Potassium, pl 4.4 3.5 - 5.3 mmol/L [facility] [place] Chloride 105 98 - 110 mmol/L [facility] [place] CO2 27 20 - 31 mmol/L [facility] [place] Calcium 9.3 8.6 - 10.2 mg/dL [facility] [place] Protein, sr 7.0 6.1 - 8.1 g/dL [facility] [place] Albumin 4.2 3.6 - 5.1 g/dL [facility] [place] GLOBULIN 2.8 1.9 - 3.7 g/dL (calc) [facility] [place] Alb/glob ratio 1.5 1.0 - 2.5 (calc) [facility] [place] Bilirubin, total 0.4 0.2 - 1.2 mg/dL [facility] [place] Alk phos 79 33 - 115 U/L [facility] [place] AST 20 10 - 35 U/L [facility] [place] ALT (SGPT) 15 6 - 29 U/L [facility] [place] Blood specimen (specimen) 08/30/2017 12:15 PM CDT 08/30/2017 12:16 PM CDT Narrative [facility] - 08/31/2017 11:35 AM CDT FASTING:YES FASTING: YES Resulting Agency Comment Performing Organization Information: ?Site ID: [place] ?Name: [facility] ?Address: [address] [place] [address] [place] [address] ?Director: Todd Corrigan D.O., MPH us Eric Crowder MD LAB BLOOD ORDERABLES Fin al Result [facility] - [place], [place] * US Hand Complete (06/02/2017 2:39 PM CDT) Anatomical Region Laterality Modality Hand N/A Ultrasound us Eric Crowder MD IMG US PROCEDURES Final Result * (ABNORMAL) CBC with auto differential (06/01/2017 1:47 PM CDT) WBC 5.6 3.8 - 10.8 Thousand/ uL [facility] [place] RBC, POC 4.63 3.80 - 5.10 Million/u L [facility] [place] Hgb 12.9 11.7 - 15.5 g/dL [facility] [place] Hct 39.7 35.0 - 45.0 % [facility] [place] MCV 85.7 80.0 - 100.0 fL [facility] [place] MCH 27.9 27.0 - 33.0 pg [facility] [place] MCHC 32.5 32.0 - 36.0 g/dL [facility] [place] Rdw 15.3(H) 11.0 - 15.0 % [facility] [place] Platelets 275 140 - 400 Thousand/ uL [facility] [place] MPV 9.2 7.5 - 12.5 fL [facility] [place] Neutrophils, abs 2,643 1,500 - 7,800 cells/uL [facility] [place] Neutrophil bands, abs CANCELED 0 - 750 cells/uL [facility] [place] Comment:Result canceled by t he ancillary Metamyelocytes, abs CANCELED 0 cells/uL [facility] [place] Comment:Result canceled by t he ancillary Absolute Myelocytes CANCELED 0 cells/uL [facility] [place] Comment:Result canceled by t he ancillary Promyelocytes, abs CANCELED 0 cells/uL [facility] [place] Comment:Result canceled by t he ancillary Lymphocytes, abs 2,094 850 - 3,900 cells/uL [facility] [place] Monocyte abs 577 200 - 950 cells/uL [facility] [place] Eosinophils, abs 258 15 - 500 cells/uL [facility] [place] Basophils, abs 28 0 - 200 cells/uL [facility] [place] Blast, cell CANCELED 0 cells/uL [facility] [place] Comment:Result canceled by t he ancillary NRBC abs CANCELED 0 cells/uL [facility] [place] Comment:Result canceled by t he ancillary Neutrophils 47.2 % [facility] [place] Neutrophilic bands CANCELED % [facility] [place] Comment:Result canceled by t he ancillary Metamyelocyte pct CANCELED % [facility] [place] Comment:Result canceled by t he ancillary Myelocyte pct CANCELED % [facility] [place] Comment:Result canceled by t he ancillary Promyelocyte pct CANCELED % [facility] [place] Comment:Result canceled by t he ancillary Lymphocyte pct 37.4 % [facility] [place] Reactive lymph CANCELED 0 - 10 % [facility] [place] Comment:Result canceled by t he ancillary Monocytes 10.3 % [facility] [place] Eosinophils 4.6 % [facility] [place] Basophils 0.5 % [facility] [place] Blast pct CANCELED % [facility] [place] Comment:Result canceled by t he ancillary NRBC CANCELED 0 /100 WBC [facility] [place] Comment:Result canceled by t he ancillary Comment CANCELED [facility] [place] Comment:Result canceled by t he ancillary 06/01/2017 1:47 PM CDT 06/01/2017 1:49 PM CDT Narrative Resulting Agency Comment Performing Organization Information: ?Site ID: [place] ?Name: [facility] ?Address: [facility] [place] [address] ?Director: Todd Corrigan D.O., MPH Eric Crowder MD LAB BLOOD ORDERABLES Fin al Result Performing Organization Address [facility] Co de Phone Number [place] * Erythrocyte sedimentation rate (06/01/2017 1:47 PM CDT) Erythrocyte sedimentation rate 14 < OR = 20 mm/h [facility] 06/01/2017 1:47 PM CDT 06/01/2017 1:49 PM CDT Narrative Resulting Agency Comment Performing Organization Information: ?Site ID: [place] ?Name: [facility] ?Address: [facility] [place] [address] ?Director: Todd Corrigan D.O., MPH Eric Crowder MD LAB BLOOD ORDERABLES Fin al Result Performing Organization Address [facility] Co de Phone Number [place] * Comprehensive metabolic panel (06/01/2017 1:47 PM CDT) Glucose 95 65 - 99 mg/dL [facility] [place] Comment: ? Fasting reference interval BUN 10 7 - 25 mg/dL [facility] [place] Creatinine 0.76 0.50 - 1.10 mg/dL [facility] [place] eGFR NON-AFR. GHANAIAN 94 > OR = 60 mL/min/1. 73m2 [facility] [place] EGFR 109 > OR = 60 mL/min/1. 73m2 [facility] [place] BUN/creat ratio NOT APPLICABLE 6 - 22 (calc) [facility] [place] Sodium 141 135 - 146 mmol/L [facility] [place] Potassium, pl 3.9 3.5 - 5.3 mmol/L [facility] [place] Chloride 106 98 - 110 mmol/L [facility] [place] CO2 28 20 - 31 mmol/L [facility] [place] Calcium 9.6 8.6 - 10.2 mg/dL [facility] [place] Protein, sr 7.2 6.1 - 8.1 g/dL [facility] [place] Albumin 4.6 3.6 - 5.1 g/dL [facility] [place] GLOBULIN 2.6 1.9 - 3.7 g/dL (calc) [facility] [place] Alb/glob ratio 1.8 1.0 - 2.5 (calc) [facility] [place] Bilirubin, total 0.4 0.2 - 1.2 mg/dL [facility] [place] Alk phos 69 33 - 115 U/L [facility] [place] AST 23 10 - 35 U/L [facility] [place] ALT (SGPT) 26 6 - 29 U/L [facility] [place] 06/01/2017 1:47 PM CDT 06/01/2017 1:49 PM CDT Narrative Resulting Agency Comment Performing Organization Information: ?Site ID: [place] ?Name: [facility] ?Address: [address] [place], [place] [address]ner [place] [address] ?Director: Todd Corrigan D.O., MPH us Eric Crowder MD LAB BLOOD ORDERABLES Fin al Result [facility] [place] * CRP (acute phase) (06/01/2017 1:47 PM CDT) C-RP 7.6 <8.0 mg/L [facility] [place] Blood specimen (specimen) 06/01/2017 1:47 PM CDT 06/01/2017 1:49 PM CDT Narrative Resulting Agency Comment Performing Organization Information: ?Site ID: [place] ?Name: [facility] ?Address: [facility] [place] [address] ?Director: Todd Corrigan D.O., MPH us Eric Crowder MD LAB BLOOD ORDERABLES Fin al Result [facility] [place] * Vectra DA - Miscellaneous Test (06/01/2017) Miscellaneous Eric Crowder MD LAB BLOOD ORDERABLES Lg denny Result - Final EXTERNAL LAB documented in this encounter Visit Diagnoses Diagnosis 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 Unspecified inflammatory polyarthropathy halfway current use 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 documented in this encounter Discontinued Medications Medication Sig Discontinue Reason Start Date End Da te cloNIDine (CATAPRES) 0.2 mg tablet 04/26/2017 06/01/2017 documented as of this encounter Historical Medications * This list may reflect changes made after this encounter. Medication Sig Dispense Quantity Refills Last Filled Start D ate End Date hydroxychloroquine (PLAQUENIL) 200 mg tablet 05/28/2017 11/12/2017 cloNIDine (CATAPRES) 0.2 mg tablet 04/26/2017 06/01/2017 PROAIR HFA 90 mcg/actuation inhaler 03/24/201712/2023 added in this encounter Care Teams Field Observer Relationship Specialty Start Date End Date Kevin Bowles MD [facility] [place]NOTE 2[place] DR MEYER [address] [place] [address] PCP - General 06/19/16 01/16/24 Eric Crowder MD [address] [facility] [address] [place] [address] Rheumatology 01/18/17 documented as of this encounter
--- OUTSIDE RECORDS SUMMARY | 2024-04-01 11:20 | XMS_ITS | Encounter Summary ---
Author Organization [facility] Address [address] [place] [address] Phone Care Team Providers Care Youth Leader Name Role Phone Kevin Bowles MD Primary Care Provider [phone] Eric Crowder MD Unavailable [phone] Reason for Visit * Reason Comments Arthritis Encounter Details Date Type Department Care Team (Latest Contact Info) Description 09/02/2017 10:15 AM CDT Office Visit [facility] [address] 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 20 tablet 09/02/2017 11/21/2017 folic acid (FOLVITE) 1 mg tablet Take 1 tablet (1 mg total) by mouth daily. Take one tab daily 30 tablet 3 09/02/2017 11/29/2017 methotrexate 2.5 mg tablet Take 4 tabs PO weekly 16 tablet 2 09/02/2017 11/29/2017 documented in this encounter Progress Notes * Eric Crowder MD - 09/02/2017 10:15 AM CDT Images from the original note were not included. Subjective/Objective Patient ID: Monica Buckner is a 47 y.o. female. Chief Complaint Arthritis Having increased joint pain since last visit. Pain in left knee and fingers, right wrist. Pain is worse with gripping and activity. Denies joint swelling. Also with pain in neck with stiffness and pain with movement for the last couple of weeks. Remains on HCQ and SSZ. Using tylenol prn with some benefit. Review of Systems Constitutional: Negative for chills and fever. HENT: Negative. Eyes: Negative. Respiratory: Negative. Negative for cough and shortness of breath. Cardiovascular: Negative. Negative for chest pain. Gastrointestinal: Negative. Genitourinary: Negative. Musculoskeletal: Positive for arthralgias, neck pain and neck stiffness. Negative for joint swelling. Skin: Negative. Neurological: [...] and breath sounds normal. Musculoskeletal: No synovitis; tenderness over 2nd-5th pip joints bilat; mild crepitus bilat knees; mild c-spine tenderness and pain with flex/ext Lymphadenopathy: She has no cervical adenopathy. Neurological: She is alert and oriented to person, place, and time. Assessment/Plan Diagnoses and all orders for this visit: 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/HCC) (Primary) Assessment & Plan: She is having increased pain in bilateral [...] be obtained. Follow up in 3 months. Orders: - Comprehensive metabolic panel; Standing - CBC with auto differential; Standing - Erythrocyte sedimentation rate; Standing - CRP (acute phase); Standing Neck pain Assessment & Plan: She has had increased [...] at this time. Continue Tylenol as needed. skilled nursing current use 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 - Comprehensive metabolic panel; Standing - CBC with auto differential; Standing Other orders - methotrexate 2.5 mg tablet; Take 4 tabs PO weekly - folic acid (FOLVITE) 1 mg tablet; Take 1 tablet (1 mg total) by mouth daily. Take one tab daily - ondansetron (ZOFRAN) 4 mg tablet; Take 1 tablet (4 mg total) by mouth every 8 (eight) hours as needed for nausea or vomiting. Dr. Eric Crowder dictating using fluency direct. Washer Engineer Helper variances may occur. documented in this encounter Miscellaneous Notes * Assessment & Plan Note - Eric Crowder MD - 09/02/2017 11:35 AM CDT Associated Problem(s): Neck pain She has had increased neck pain and [...] at this time. Continue Tylenol as needed. * Assessment & Plan Note - Eric Crowder MD - 09/02/2017 11:33 AM CDT Associated Problem(s): 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/HCC) (HCC) She is having increased pain in bilateral [...] be obtained. Follow up in 3 months. documented in this encounter Plan of Treatment Scheduled Orders Name Type Priority Associated Diagnoses Orde r Schedule Comprehensive metabolic panel Lab Routine 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/HCC) watermelon inspector current use 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 q2 months for 10 Occurrences starting 09/02/2017 until 09/02/2018, 2 completed CBC with auto differential Lab Routine 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/HCC) watermelon inspector current use 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 q2 months for 10 Occurrences starting 09/02/2017 until 09/02/2018, 2 completed Erythrocyte sedimentation rate Lab Routine 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/HCC) q 2months for 10 Occurrences starting 09/02/2017 until 09/02/2018, 2 completed CRP (acute phase) Lab Routine 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/HCC) q2 months for 10 Occurrences starting 09/02/2017 until 09/02/2018, 4 completed documented as of this encounter Procedures Procedure Name Priority Date/Time Associated Diagnosis Comments CBC WITH AUTO DIFFERENTIAL Routine 08/29/2018 1:26 PM CDT ERYTHROCYTE SEDIMENTATION RATE Routine 08/29/2018 1:26 PM CDT CRP (ACUTE PHASE) Routine 08/29/2018 1:2 6 PM CDT 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/HCC) COMPREHENSIVE METABOLIC PANEL Routine 08/29/2018 1:26 PM CDT COMPREHENSIVE METABOLIC PANEL Routine 05/26/2018 2:18 PM INTERNET SALES DIRECTOR 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/HCC) watermelon inspector current use 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 CBC WITH AUTO DIFFERENTIAL Routine 05/26/2018 2:16 PM INTERNET SALES DIRECTOR 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/HCC) skilled nursing current use 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 ERYTHROCYTE SEDIMENTATION RATE Routine 05/26/2018 2:15 PM INTERNET SALES DIRECTOR 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/HCC) CRP (ACUTE PHASE) Routine 05/26/2018 2:1 4 PM INTERNET SALES DIRECTOR 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/HCC) CBC WITH AUTO DIFFERENTIAL Routine 02/23/2018 2:15 PM INTERNET SALES DIRECTOR ERYTHROCYTE SEDIMENTATION RATE Routine 02/23/2018 2:15 PM INTERNET SALES DIRECTOR CRP (ACUTE PHASE) Routine 02/23/2018 2:1 5 PM INTERNET SALES DIRECTOR 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/HCC) COMPREHENSIVE METABOLIC PANEL Routine 02/23/2018 2:15 PM INTERNET SALES DIRECTOR CBC WITH AUTO DIFFERENTIAL Routine 11/23/2017 3:00 PM CDT 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/HCC) skilled nursing current use 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 ERYTHROCYTE SEDIMENTATION RATE Routine 11/23/2017 3:00 PM CDT 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/HCC) CRP (ACUTE PHASE) Routine 11/23/2017 3:0 0 PM CDT 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/HCC) COMPREHENSIVE METABOLIC PANEL Routine 11/23/2017 3:00 PM CDT 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/HCC) watermelon inspector current use 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 documented in this encounter Results * (ABNORMAL) CBC with auto differential (08/29/2018 1:26 PM CDT) WBC 5.4 3.8 - 10.8 Thousand/u L [facility] [place] RBC, POC 4.35 3.80 - 5.10 Million/uL [facility] [place] Hgb 11.3(L) 11.7 - 15.5 g/dL [facility] [place] Hct 35.5 35.0 - 45.0 % [facility] [place] MCV 81.6 80.0 - 100.0 fL [facility] [place] MCH 26.0(L) 27.0 - 33.0 pg [facility] [place] MCHC 31.8(L) 32.0 - 36.0 g/dL [facility] [place] Rdw 18.4(H) 11.0 - 15.0 % [facility] [place] Platelets 261 140 - 400 Thousand/u L [facility] [place] MPV 9.2 7.5 - 12.5 fL [facility] [place] Neutrophils, abs 2,765 1,500 - 7,800 cells/uL [facility] [place] Lymphocytes, abs 1,895 850 - 3,900 cells/uL [facility] [place] Monocyte abs 621 200 - 950 cells/uL [facility] [place] Eosinophils, abs 97 15 - 500 cells/uL [facility] [place] Basophils, abs 22 0 - 200 cells/uL [facility] [place] Neutrophils 51.2 % [facility] [place] Lymphocyte pct 35.1 % [facility] [place] Monocytes 11.5 % [facility] [place] Eosinophils 1.8 % [facility] [place] Basophils 0.4 % [facility] [place] 08/29/2018 1:26 PM CDT 08/29/2018 1:27 PM CDT Narrative Resulting Agency Comment Performing Organization Information: ?Site ID: [place] ?Name: Hussein Krishnamurthy ?Address: [facility] [place] [address] ?Director: Todd Corrigan D.O., MPH Eric Crowder MD LAB BLOOD ORDERABLES Fin al Result Performing Organization Address [facility] Co de Phone Number [facility] [place] * (ABNORMAL) Erythrocyte sedimentation rate (08/29/2018 1:26 PM CDT) Erythrocyte sedimentation rate 25(H) < OR = 20 mm/h [facility] [place] 08/29/2018 1:26 PM CDT 08/29/2018 1:27 PM CDT Narrative Resulting Agency Comment Performing Organization Information: ?Site ID: [id number] ?Name: Hussein Krishnamurthy ?Address: [facility] [place] [address] ?Director: Todd Corrigan D.O., MPH Eric Crowder MD LAB BLOOD ORDERABLES Fin al Result Performing Organization Address [facility] de Phone Number [place] Mya * Comprehensive metabolic panel (08/29/2018 1:26 PM CDT) Glucose 91 65 - 99 mg/dL [facility] [place] Comment: ? Fasting reference interval BUN 12 7 - 25 mg/dL [facility] [place] Creatinine 0.74 0.50 - 1.10 mg/dL [facility] [place] eGFR NON-AFR. TOGOLESE 96 > OR = 60 mL/min/1. 73m2 [facility] [place] EGFR 111 > OR = 60 mL/min/1. 73m2 [facility] [place] BUN/creat ratio NOT APPLICABLE 6 - 22 (calc) [facility] [place] Sodium 139 135 - 146 mmol/L [facility] [place] Potassium, pl 4.2 3.5 - 5.3 mmol/L [facility] [place] Chloride 104 98 - 110 mmol/L [facility] [place] CO2 26 20 - 32 mmol/L [facility] [place] Calcium 9.6 8.6 - 10.2 mg/dL [facility] [place] Protein, sr 7.1 6.1 - 8.1 g/dL [facility] [place] Albumin 4.4 3.6 - 5.1 g/dL [facility] [place] GLOBULIN 2.7 1.9 - 3.7 g/dL (calc) [facility] [place] Alb/glob ratio 1.6 1.0 - 2.5 (calc) [facility] [place] Bilirubin, total 0.4 0.2 - 1.2 mg/dL [facility] [place] Alk phos 72 33 - 115 U/L [facility] [place] AST 20 10 - 35 U/L [facility] [place] ALT (SGPT) 21 6 - 29 U/L [facility] [place] 08/29/2018 1:26 PM CDT 08/29/2018 1:27 PM CDT Narrative Resulting Agency Comment Performing Organization Information: ?Site ID: [id number] ?Name: Hussein Krishnamurthy ?Address: [address] [place] [address] [place] [address] ?Director: Todd Corrigan D.O., MPH Eric Crowder MD LAB BLOOD ORDERABLES Fin al Result Performing Organization Address City/State/[facility] Co de Phone Number [facility] [place] * (ABNORMAL) CRP (acute phase) (08/29/2018 1:26 PM CDT) C-RP 12.2(H) <8.0 mg/L [facility] [place] Blood specimen (specimen) 08/29/2018 1:26 PM CDT 08/29/2018 1:27 PM CDT Narrative Resulting Agency Comment Performing Organization Information: ?Site ID: [id number] ?Name: [facility] ?Address: [facility] [place] [address] ?Director: Todd Corrigan D.O. MPH Eric Crowder MD LAB BLOOD ORDERABLES Fin al Result [facility] [place] * Comprehensive metabolic panel (05/26/2018 2:18 PM INTERNET SALES DIRECTOR) Glucose 108 65 - 139 mg/dL [facility] [place] Comment: ? Non-fasting reference interval BUN 9 7 - 25 mg/dL [facility] [place] Creatinine 0.70 0.50 - 1.10 mg/dL [facility] [place] eGFR NON-AFR. TOGOLESE 103 > OR = 60 mL/min/1. 73m2 [facility] [place] EGFR 120 > OR = 60 mL/min/1. 73m2 [facility] [place] BUN/creat ratio NOT APPLICABLE 6 - 22 (calc) [facility] [place] Sodium 140 135 - 146 mmol/L [facility] [place] Potassium, pl 4.1 3.5 - 5.3 mmol/L [facility] [place] Chloride 106 98 - 110 mmol/L [facility] [place] CO2 25 20 - 32 mmol/L [facility] [place] Calcium 9.1 8.6 - 10.2 mg/dL [facility] [place] Protein, sr 6.6 6.1 - 8.1 g/dL [facility] [place] Albumin 4.2 3.6 - 5.1 g/dL [facility] [place] GLOBULIN 2.4 1.9 - 3.7 g/dL (calc) [facility] [place] Alb/glob ratio 1.8 1.0 - 2.5 (calc) [facility] [place] Bilirubin, total 0.3 0.2 - 1.2 mg/dL [facility] [place] Alk phos 66 33 - 115 U/L [facility] [place] AST 18 10 - 35 U/L [facility] [place] ALT (SGPT) 13 6 - 29 U/L [facility] [place] Blood specimen (specimen) 05/26/2018 2:18 PM INTERNET SALES DIRECTOR 05/26/2018 2:18 PM INTERNET SALES DIRECTOR Narrative [facility] - 05/27/2018 5:42 AM INTERNET SALES DIRECTOR FASTING:NO FASTING: NO Resulting Agency Comment Performing Organization Information: ?Site ID: [id number] ?Name: [facility] ?Address: [address] [place] [address] [place] [address] ?Director: Todd Corrigan D.O., MPH Eric Crowder MD LAB BLOOD ORDERABLES Fin al Result [facility] [place] * (ABNORMAL) CBC with auto differential (05/26/2018 2:16 PM INTERNET SALES DIRECTOR) WBC 4.8 3.8 - 10.8 Thousand/u L [facility] [place] RBC, POC 4.25 3.80 - 5.10 Million/uL [facility] [place] Hgb 10.6(L) 11.7 - 15.5 g/dL [facility] [place] Hct 32.9(L) 35.0 - 45.0 % [facility] [place] MCV 77.4(L) 80.0 - 100.0 fL [facility] [place] MCH 24.9(L) 27.0 - 33.0 pg [facility] [place] MCHC 32.2 32.0 - 36.0 g/dL [facility] [place] Rdw 18.0(H) 11.0 - 15.0 % [facility] [place] Platelets 283 140 - 400 Thousand/u L [facility] [place] MPV 8.9 7.5 - 12.5 fL [facility] [place] Neutrophils, abs 2,304 1,500 - 7,800 cells/uL [facility] [place] Lymphocytes, abs 1,910 850 - 3,900 cells/uL [facility] [place] Monocyte abs 456 200 - 950 cells/uL [facility] [place] Eosinophils, abs 120 15 - 500 cells/uL [facility] [place] Basophils, abs 10 0 - 200 cells/uL [facility] [place] Neutrophils 48 % [facility] [place] Lymphocyte pct 39.8 % [facility] [place] Monocytes 9.5 % [facility] [place] Eosinophils 2.5 % [facility] [place] Basophils 0.2 % [facility] [place] Blood specimen (specimen) 05/26/2018 2:16 PM INTERNET SALES DIRECTOR 05/26/2018 2:17 PM INTERNET SALES DIRECTOR Narrative [facility] - 05/27/2018 3:36 AM INTERNET SALES DIRECTOR FASTING:NO FASTING: NO Resulting Agency Comment Performing Organization Information: ?Site ID: [place] ?Name: Hussein Krishnamurthy ?Address: [address] [place] [address] ?Director: Todd Corrigan D.O., MPH Result [facility] Eric Crowder MD LAB BLOOD ORDERABLES Fin al Result Performing Organization Address [facility] Co de Phone Number [facility] [place] * Erythrocyte sedimentation rate (05/26/2018 2:15 PM INTERNET SALES DIRECTOR) Erythrocyte sedimentation rate 17 < OR = 20 mm/h [facility] [place] Blood specimen (specimen) 05/26/2018 2:15 PM INTERNET SALES DIRECTOR 05/26/2018 2:16 PM INTERNET SALES DIRECTOR Narrative [facility] - 05/27/2018 7:07 AM INTERNET SALES DIRECTOR FASTING:NO FASTING: NO Resulting Agency Comment Performing Organization Information: ?Site ID: [id number] ?Name: [facility] ?Address: [facility] [place] [address] ?Director: Todd Corrigan D.O., ULISSES Result [facility] Eric Crowder MD LAB BLOOD ORDERABLES Fin al Result Performing Organization Address [facility] de Phone Number [facility] [place] * CRP (acute phase) (05/26/2018 2:14 PM INTERNET SALES DIRECTOR) C-RP 7.6 <8.0 mg/L [facility] [place] Blood specimen (specimen) 05/26/2018 2:14 PM INTERNET SALES DIRECTOR 05/26/2018 2:14 PM INTERNET SALES DIRECTOR Narrative [facility] - 05/27/2018 9:51 AM INTERNET SALES DIRECTOR FASTING:NO FASTING: NO Resulting Agency Comment Performing Organization Information: ?Site ID: [id number] ?Name: [facility] ?Address: [facility] [place] [address] ?Director: Todd Corrigan D.O. MPH Eric Crowder MD LAB BLOOD ORDERABLES Fin al Result Performing Organization Address [facility] de Phone Number [facility] [place] * (ABNORMAL) CBC with auto differential (02/23/2018 2:15 PM INTERNET SALES DIRECTOR) WBC 6.0 3.8 - 10.8 Thousand/u L [facility] [place] RBC, POC 4.24 3.80 - 5.10 Million/uL [facility] [place] Hgb 10.7(L) 11.7 - 15.5 g/dL [facility] [place] Hct 33.3(L) 35.0 - 45.0 % [facility] [place] MCV 78.5(L) 80.0 - 100.0 fL [facility] [place] MCH 25.2(L) 27.0 - 33.0 pg [facility] [place] MCHC 32.1 32.0 - 36.0 g/dL [facility] [place] Rdw 14.9 11.0 - 15.0 % [facility] [place] Platelets 293 140 - 400 Thousand/u L [facility] [place] MPV 9.5 7.5 - 12.5 fL [facility] [place] Neutrophils, abs 3,528 1,500 - 7,800 cells/uL [facility] [place] Lymphocytes, abs 1,764 850 - 3,900 cells/uL [facility] [place] Monocyte abs 576 200 - 950 cells/uL [facility] [place] Eosinophils, abs 120 15 - 500 cells/uL [facility] [place] Basophils, abs 12 0 - 200 cells/uL [facility] [place] Neutrophils 58.8 % [facility] [place] Lymphocyte pct 29.4 % [facility] [place] Monocytes 9.6 % [facility] [place] Eosinophils 2.0 % [facility] [place] Basophils 0.2 % [facility] [place] 02/23/2018 2:15 PM INTERNET SALES DIRECTOR 02/23/2018 2:15 PM INTERNET SALES DIRECTOR Narrative Resulting Agency Comment Performing Organization Information: ?Site ID: [place] ?Name: [facility] ?Address: [address] [place] [address] ?Director: Todd Corrigan D.O., MPH us Eric Crowder MD LAB BLOOD ORDERABLES Fin al Result [facility] [place] * (ABNORMAL) Erythrocyte sedimentation rate (02/23/2018 2:15 PM INTERNET SALES DIRECTOR) Erythrocyte sedimentation rate 31(H) < OR = 20 mm/h [facility] 02/23/2018 2:15 PM INTERNET SALES DIRECTOR 02/23/2018 2:15 PM INTERNET SALES DIRECTOR Narrative Resulting Agency Comment Performing Organization Information: ?Site ID: [place] ?Name: [facility] ?Address: [facility] [place] [address] ?Director: Todd Corrigan D.O., MPH us Eric Crowder MD LAB BLOOD ORDERABLES Fin al Result [facility] [place] * (ABNORMAL) Comprehensive metabolic panel (02/23/2018 2:15 PM INTERNET SALES DIRECTOR) Glucose 109(H) 65 - 99 mg/dL [facility] Comment: ? Fasting reference interval For someone without known diabetes, a glucose value between 100 and 125 mg/dL is consistent with prediabetes and should be confirmed with a follow-up test. BUN 8 7 - 25 mg/dL [facility] [place] Creatinine 0.66 0.50 - 1.10 mg/dL [facility] [place] eGFR NON-AFR. TOGOLESE 105 > OR = 60 mL/min/1. 73m2 [facility] [place] EGFR 122 > OR = 60 mL/min/1. 73m2 [facility] [place] BUN/creat ratio NOT APPLICABLE 6 - 22 (calc) [facility] [place] Sodium 138 135 - 146 mmol/L [facility] [place] Potassium, pl 3.9 3.5 - 5.3 mmol/L [facility] [place] Chloride 103 98 - 110 mmol/L [facility] [place] CO2 30 20 - 32 mmol/L [facility] [place] Calcium 9.1 8.6 - 10.2 mg/dL [facility] [place] Protein, sr 6.7 6.1 - 8.1 g/dL [facility] [place] Albumin 4.2 3.6 - 5.1 g/dL [facility] [place] GLOBULIN 2.5 1.9 - 3.7 g/dL (calc) [facility] [place] Alb/glob ratio 1.7 1.0 - 2.5 (calc) [facility] [place] Bilirubin, total 0.4 0.2 - 1.2 mg/dL [facility] [place] Alk phos 75 33 - 115 U/L [facility] [place] AST 17 10 - 35 U/L [facility] [place] ALT (SGPT) 19 6 - 29 U/L [facility] [place] 02/23/2018 2:15 PM INTERNET SALES DIRECTOR 02/23/2018 2:15 PM INTERNET SALES DIRECTOR Narrative Resulting Agency Comment Performing Organization Information: ?Site ID: [place] ?Name: [facility] ?Address: [facility] [place] [address] ?Director: Todd Corrigan D.O., MPH Eric Crowder MD LAB BLOOD ORDERABLES Fin al Result Performing Organization Address [facility] Co de Phone Number [facility] [place] * (ABNORMAL) CRP (acute phase) (02/23/2018 2:15 PM INTERNET SALES DIRECTOR) C-RP 14.8(H) <8.0 mg/L [facility] [place] Blood specimen (specimen) 02/23/2018 2:15 PM INTERNET SALES DIRECTOR 02/23/2018 2:15 PM INTERNET SALES DIRECTOR Narrative Resulting Agency Comment Performing Organization Information: ?Site ID: [place] ?Name: [facility] ?Address: [address] [place] [address] ?Director: Todd Corrigan D.O., MPH Eric Crowder MD LAB BLOOD ORDERABLES Fin al Result Performing Organization Address City/[facility]/ZIP Co de Phone Number [facility] [place] * (ABNORMAL) CRP (acute phase) (11/23/2017 3:00 PM CDT) C-RP 10.1(H) <8.0 mg/L [facility] [place] Blood specimen (specimen) 11/23/2017 3:00 PM CDT 11/23/2017 3:00 PM CDT Narrative Resulting Agency Comment Performing Organization Information: ?Site ID: [place] ?Name: [facility] Krishnamurthy ?Address: [facility] [place] [address] ?Director: Todd Corrigan D.O., MPH Eric Crowder MD LAB BLOOD ORDERABLES Fin al Result Performing Organization Address [facility] Co de Phone Number [facility] [place] * (ABNORMAL) Erythrocyte sedimentation rate (11/23/2017 3:00 PM CDT) Pathologist [facility] Erythrocyte sedimentation rate 28(H) < OR = 20 mm/h [facility] [place] Blood specimen (specimen) 11/23/2017 3:00 PM CDT 11/23/2017 3:00 PM CDT Narrative Resulting Agency Comment Performing Organization Information: ?Site ID: [place] ?Name: [facility] Krishnamurthy ?Address: [facility] [place] [address] ?Director: Todd Corrigan D.O., MPH Eric Crowder MD LAB BLOOD ORDERABLES Fin al Result Performing Organization Address [facility] de Phone Number [facility] [place] * (ABNORMAL) CBC with auto differential (11/23/2017 3:00 PM CDT) Pathologist [facility] WBC 5.5 3.8 - 10.8 Thousand/ uL [facility] [place] RBC, POC 4.36 3.80 - 5.10 Million/u L [facility] [place] Hgb 12.0 11.7 - 15.5 g/dL [facility] [place] Hct 36.0 35.0 - 45.0 % [facility] [place] MCV 82.6 80.0 - 100.0 fL [facility] [place] MCH 27.5 27.0 - 33.0 pg [facility] [place] MCHC 33.3 32.0 - 36.0 g/dL [facility] [place] Rdw 17.1(H) 11.0 - 15.0 % [facility] [place] Platelets 268 140 - 400 Thousand/ uL [facility] [place] MPV 9.3 7.5 - 12.5 fL [facility] [place] Neutrophils, abs 3,025 1,500 - 7,800 cells/uL [facility] [...] canceled by t he ancillary Lymphocytes, abs 1,755 850 - 3,900 cells/uL [facility] [place] Monocyte abs 611 200 - 950 cells/uL [facility] [place] Eosinophils, abs 99 15 - 500 cells/uL [facility] [place] Basophils, abs 11 0 - 200 cells/uL [facility] [place] Blast, cell CANCELED 0 cells/uL [facility] [place] Comment:Result canceled by t he ancillary NRBC abs CANCELED 0 cells/uL [facility] [place] Comment:Result canceled by t he ancillary Neutrophils 55 % [facility] [place] Neutrophilic bands [...] canceled by t he ancillary Lymphocyte pct 31.9 % [facility] [place] Reactive lymph CANCELED 0 - 10 % [facility] [place] Comment:Result canceled by t he ancillary Monocytes 11.1 % [facility] [place] Eosinophils 1.8 % [facility] [place] Basophils 0.2 % [facility] [place] Blast pct CANCELED % [facility] [place] Comment:Result canceled by t he ancillary NRBC CANCELED 0 /100 WBC [facility] [place] Comment:Result canceled by t he ancillary Comment CANCELED [facility] [place] Comment:Result canceled by t he ancillary Blood specimen (specimen) 11/23/2017 3:00 PM CDT 11/23/2017 3:00 PM CDT Narrative Resulting Agency Comment Performing Organization Information: ?Site ID: [place] ?Name: [employer] [employer] ?Address: [address] [address] ?Director: Todd Corrigan D.O., MPH Eric Crowder MD LAB BLOOD ORDERABLES Fin al Result [facility] [place] * (ABNORMAL) Comprehensive metabolic panel (11/23/2017 3:00 PM CDT) Glucose 106(H) 65 - 99 mg/dL [facility] [place] Comment: ? Fasting reference interval For someone without known diabetes, a glucose value between 100 and 125 mg/dL is consistent with prediabetes and should be confirmed with a follow-up test. BUN 8 7 - 25 mg/dL [facility] [place] Creatinine 0.75 0.50 - 1.10 mg/dL [facility] [place] eGFR NON-AFR. TOGOLESE 95 > OR = 60 mL/min/1. 73m2 [facility] [place] EGFR 110 > OR = 60 mL/min/1. 73m2 [facility] [place] BUN/creat ratio NOT APPLICABLE 6 - 22 (calc) [facility] [place] Sodium 140 135 - 146 mmol/L [facility] [place] Potassium, pl 4.4 3.5 - 5.3 mmol/L [facility] [place] Chloride 106 98 - 110 mmol/L [facility] [place] CO2 28 20 - 32 mmol/L [facility] [place] Calcium 9.4 8.6 - 10.2 mg/dL [facility] [place] Protein, sr 7.0 6.1 - 8.1 g/dL [facility] [place] Albumin 4.3 3.6 - 5.1 g/dL [facility] [place] GLOBULIN 2.7 1.9 - 3.7 g/dL (calc) [facility] [place] Alb/glob ratio 1.6 1.0 - 2.5 (calc) [facility] [place] Bilirubin, total 0.4 0.2 - 1.2 mg/dL [facility] [place] Alk phos 76 33 - 115 U/L [facility] [place] AST 26 10 - 35 U/L [facility] [place] ALT (SGPT) 23 6 - 29 U/L [facility] [place] Blood specimen (specimen) 11/23/2017 3:00 PM CDT 11/23/2017 3:00 PM CDT Narrative Resulting Agency Comment Performing Organization Information: ?Site ID: [place] ?Name: [facility] ?Address: [address] [address] ?Director: Todd Corrigan D.O., MPH Eric Crowder MD LAB BLOOD ORDERABLES Fin al Result [facility] [place] Re[place] documented in this encounter Visit Diagnoses Diagnosis 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 Unspecified inflammatory polyarthropathy Neck pain Cervicalgia watermelon inspector current use 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 documented in this encounter Historical Medications * This list may reflect changes made after this encounter. traZODone (DESYREL) 50 mg tablet Take 50 mg by mouth nightly. 12/14/2022 added in this encounter Care Teams Youth Leader Relationship Specialty Start Date End Date Kevin Bowles MD [facility] [facility] [address] [facility] [address] [place] [address] PCP - General 06/19/16 01/16/24 Eric Crowder MD [address] [place] [address] Rheumatology 01/18/17 documented as of this encounter
--- OUTSIDE RECORDS SUMMARY | 2024-04-01 11:20 | XMS_ITS | Encounter Summary ---
Author Organization [facility] Facility Care Team Providers Care Daycare Assistant Name Role Phone Kevin Bowles MD Primary Care Provider [phone] Encounter Details Date Type Department Care Team (Latest Contact Info) Description 12/12/2015 12:25 PM CDT - 12/12/2015 11:59 PM CDT Hospital Encounter [facility] Brando Bragg MD [address] [address] Other diseases of salivary glands; Other specified soft tissue disorders; Localized enlarged lymph nodes Social History Tobacco Use Types Packs/Day Years Used Date Smoking Tobacco: Never Alcohol Use Standard Drinks/Week Comments Yes 0 (1 standard drink = 0.6 oz pur e alcohol) Comments Unknown Sex and Gender Information Value Date Recorded Sex Assigned at Not on file 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 Gender Identity Not on file Sexual Orientation Not on file documented as of this encounter Medications at Time of Discharge acetaminophen (TYLENOL) 325 mg tablet take 1 - 2 Tablet by oral route 3 times every day 0 0 06/03/2015 levothyroxine (SYNTHROID, LEVOTHROID) 175 mcg tablet take 1 tablet by oral route every day 0 0 06/03/2015 loratadine (CLARITIN) 10 mg tablet take 1 tablet by oral route every day 0 0 06/03/2015 amitriptyline (ELAVIL) 25 mg tablet take 1 tablet by oral route every day at bedtime 0 0 06/03/2015 12/29/2016 hydroxychloroquin e (PLAQUENIL) 200 mg tablet TAKE ONE TABLET BY MOUTH TWICE A DAY 60 3 11/07/2015 09/30/2016 ibuprofen (ADVIL,MOTRIN) 200 mg tablet take 1 tablet by oral route every 6 hours as needed with food 0 0 06/03/2015 12/14/2022 sulfaSALAzine EN (AZULFIDINE EN) 500 mg EC tablet TAKE THREE TABLETS BY MOUTH TWICE A DAY AFTER MEALS 180 0 06/17/2015 09/30/2016 sulfaSALAzine EN (AZULFIDINE EN) 500 mg EC tablet TAKE THREE TABLETS BY MOUTH TWICE A DAY AFTER MEALS 180 0 06/17/2015 09/30/2016 documented as of this encounter Plan of Treatment Not on file documented as of this encounter Procedures Procedure Name Priority Date/Time Associated Diagnosis Comments CT SOFT TISSUE NECK W CONTRAST Routine 12/12/2015 1:29 PM CDT documented in this encounter Results * CT Neck Soft Tissue W Contrast (12/12/2015 1:29 PM CDT) Anatomical Region Laterality Modality Head and Neck N/A Computed Tomogra phy 12/12/2015 1:29 PM CDT Narrative 12/12/2015 2:30 PM CDT SOFT TISSUE NECK CT WITH IV CONTRAST, 12/12/2015 HISTORY: Lump on right side of jaw for 10 days COMPARISON: None Contrast: 73 mL Optiray 350 Imaging after contrast demonstrates a BB over the right lower parotid glands. ??Deep to this, there is a mixed attenuation lesion measuring 2.1 x 1.3 x 2.6 cm in the superficial portion of the right parotid gland, vertically oriented and superficial to the retromandibular vein. ??Given that this has mostly fat fat but also soft tissue density components, this cannot be described as a definitively benign lipoma. ??Therefore, benign and malignant etiologies are considered. Scattered lymph nodes are mildly prominent in number and size for the patient's age. ??There are no necrotic or rim-enhancing lymph nodes. Otherwise, there is no focal lesion of the included ??nasopharynx, oropharynx, oral cavity, submandibular glands, hypopharynx, glottis and symmetrically mildly prominent thyroid lobes. No abnormal calcification, fat stranding, or prevertebral soft tissue swelling is seen. No cervical canal compromise or lung apical abnormality is seen. IMPRESSION: The patient's palpable abnormality corresponds to a mixed attenuation (but more fat than soft tissue) lesion of the superficial right parotid. ??Mildly prominent widely scattered lymph nodes. This report was generated using voice recognition and self correction software. ??Variances may occur. ??Please call [phone] during business hours with any concerns or questions. Electronically signed by: Lisy Rogel M.D. Radiologist: LISY ROGEL ?? Attending: ??BRANDO BRAGG ??Katie Requesting: BRANDO BRAGG ??Katie Requesting Fax: ?? N/A Requesting ID: [id number] Attending Fax: ?? Attending ID: ?? [id number] Completed Time: ?? 12/12/2015 1:29 PM Dictated Time: ?N/A Transcribed Time: 12/12/2015 2:30 PM Signed by: ?LISY ROGEL ?? on 12/12/2015 2:30 PM Report To 1 ID: Report To 1 Name: , Report To 1 FAX: Report To 2 ID: Report To 2 Name: , Report To 2 FAX: Report To 3 ID: Report To 3 Name: , Report To 3 FAX: NextGen Order #: Procedure Note Provider, MD Miles - 07/26/[address] WITH IV CONTRAST, 12/12/2015 HISTORY: Lump on right side of jaw for 10 days COMPARISON: None Contrast: 73 mL Optiray 350 Imaging after contrast demonstrates a BB over the right lower parotid glands. Deep to this, there is a mixed attenuation lesion measuring 2.1 x 1.3 x 2.6 cm in the superficial portion of the right parotid gland, vertically oriented and superficial to the retromandibular vein. Given that this has mostly fat fat but also soft tissue density components, this cannot be described as a definitively benign lipoma. Therefore, benign and malignant etiologies are considered. Scattered lymph nodes are mildly prominent in number and size for the patient's age. There are no necrotic or rim-enhancing lymph nodes. Otherwise, there is no focal lesion of the included nasopharynx, oropharynx, oral cavity, submandibular glands, hypopharynx, glottis and symmetrically mildly prominent thyroid lobes. No abnormal calcification, fat stranding, or prevertebral soft tissue swelling is seen. No cervical canal compromise or lung apical abnormality is seen. IMPRESSION: The patient's palpable abnormality corresponds to a mixed attenuation (but more fat than soft tissue) lesion of the superficial right parotid. Mildly prominent widely scattered lymph nodes. This report was generated using voice recognition and self correction software. Variances may occur. Please call [phone] during business hours with any concerns or questions. Electronically signed by: Lisy Rogel M.D. Radiologist: LISY ROGEL Attending: BRANDO BRAGG M.D. Requesting: BRANDO BRAGG M.D. Requesting Fax: N/A Requesting ID: [id number] Attending Attending ID: [id number] Completed Time: 12/12/2015 1:29 PM Dictated Time: N/A Transcribed Time: 12/12/2015 2:30 PM Signed by: LISY ROGEL on 12/12/2015 2:30 PM Report To 1 ID: Report To 1 Name: , Report To 1 FAX: Report To 2 ID: Report To 2 Name: , Report To 2 FAX: Report To 3 ID: Report To 3 Name: , Report To 3 FAX: NextGen Order #: us Historical Provider MD [facility] CT PROCEDURES Final R esult documented in this encounter Visit Diagnoses Diagnosis Other diseases of salivary glands Other specified soft tissue disorders Localized enlarged lymph nodes documented in this encounter Care Teams Daycare Assistant Relationship Specialty Start Date End Date Kevin Bowles MD PCP - General 06/17/15 06/18/16 documented as of this encounter
--- OUTSIDE RECORDS SUMMARY | 2024-04-01 11:20 | XMS_ITS | Encounter Summary ---
Author Organization [facility] Address [address] [place] [address] Phone Care Team Providers Care Pipe Production Worker Name Role Phone Kevin Bowles MD Primary Care Provider [phone] Eric Crowder MD Unavailable [phone] Reason for Visit * Reason Onset Date Comments Medical Question 11/11/2017 Encounter Details Date Type Department Care Team (Late st Contact Info) Description 11/11/[address] [address] Cat Jones Medical Question Social History Tobacco Use Types Packs/Day Years Used Date Smoking Tobacco: Never Alcohol Use Standard Drinks/Week Comments Yes 0 (1 standard drink = 0.6 oz pur e alcohol) Comments Unknown Sex and Gender Information Value Date Recorded Sex Assigned at Not on file 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 Pt to schedule. * Telephone Encounter - Eric Crowder MD - 11/11/2017 9:11 AM CDT Sounds like a nerve issue and may have carpal tunnel or a nerve entrapment in her elbow causing thesymptoms. Will likely need an EMG/nerve conduction study and we can order this if needed. If symptoms are bad enough she needs to be seen we can get her in. * Telephone Encounter - Cat Jones - 11/11/2017 8:38 AM CDT Pt left msg stating she has been having significant burning sensation in both hands to the point that it's affected her sleep for the last 3 nights. Please advise documented in this encounter Plan of Treatment Not on file documented as of this encounter Visit Diagnoses Not on filedocumented in this encounter Care Teams Pipe Production Worker Relationship Specialty Start Date End Date Kevin Bowles MD [facility] [address] [place] [address] PCP - General 06/19/16 01/16/24 Eric Crowder MD [address] [facility] [address] [place] [address] Rheumatology 01/18/17 documented as of this encounter
--- OUTSIDE RECORDS SUMMARY | 2024-04-01 11:20 | XMS_ITS | Encounter Summary ---
Author Organization [facility] Address [address] [place] [phone] Phone Care Team Providers Care Electoral Officer Name Role Phone Kevin Bowles MD Primary Care Provider [phone] Reason for Visit * Reason Comments Arthritis Encounter Details Date Type Department Care Team (Latest Contact Info) Description 12/29/2016 2:00 PM CDT Office Visit [facility] [address] [address] Eric Crowder MD [address] [place] [phone] 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/HCC) (Primary Dx); skilled nursing current use 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 Social History Tobacco Use Types Packs/Day Years Used Date Smoking Tobacco: Never Alcohol Use Standard Drinks/Week Comments Yes 0 (1 standard drink = 0.6 oz pur e alcohol) Comments Unknown Sex and Gender Information Value Date Recorded Sex Assigned at Not on file Legal Sex Female 9:01 PM LICENSE INSPECTOR Gender Identity Not on file Sexual Orientation Not on file documented as of this encounter Last Filed Vital Signs Vital Sign Reading Time Taken Comments Blood Pressure 126/76 12/29/2016 1:51 PM CDT Pulse 78 12/29/2016 1:51 PM CDT Temperature - - Respiratory Rate - - Oxygen Saturation - - Inhaled Oxygen Concentration - - Weight 136.5 kg (301 lb) 12/29/2016 1:51 PM CDT Height 162.6 cm (5' 4 ) 12/29/2016 1:51 PM CDT Body Mass Index 51.67 12/29/2016 1:51 PM CDT documented in this encounter Progress Notes * Eric Crowder MD - 12/29/2016 2:00 PM CDT Subjective/Objective Patient ID: Monica Buckner is a 46 y.o. female. Chief Complaint Arthritis Has migratory facial pain in jaw and cheeks. Has migratory joint pain which is mild and not too bothersome. Has trouble staying asleep for the last 2-3 months. Is able to get to sleep ok but wakes upoften. She denies any stress. Does have some fatigue. Overall joints are doing ok. Review of Systems Constitutional: Positive for fatigue. [...] breath sounds normal. 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 Neurological: She is alert and oriented to person, place, and time. Assessment/Plan Diagnoses and all orders for this visit: 1. 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/HCC) (Primary) Assessment & Plan: CDAI 7: Low disease activity Continues to do well on her current regimen of SSZ and HCQ. Has no active synovitis on exam and nocurrent joint complaints. Will cont SSZ 1500 mg bid and HCQ 200 mg bid. Cont routine eye exams while on HCQ. Will obtain labs as below to be obtained prior to next visit. F/u 2 months. Orders: - Comprehensive metabolic panel; Future - CBC with auto differential; Future - Erythrocyte sedimentation rate; Future - CRP (acute phase); Future 2. 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 Has no active synovitis on exam and no current joint complaints. Will cont SSZ 1500 mg bid and HCQ 200 mg bid. Cont routine eye exams whileon HCQ. Will obtain labs as below to be obtained prior to next visit. F/u 2 months. documented in this encounter Plan of Treatment Not on file documented as of this encounter Procedures Procedure Name Priority Date/Time Associated Diagnosis Comments CBC WITH AUTO DIFFERENTIAL Routine 02/25/2017 11:23 AM LICENSE INSPECTOR 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/HCC) termite technician current use 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 ERYTHROCYTE SEDIMENTATION RATE Routine 02/25/2017 11:23 AM LICENSE INSPECTOR 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/HCC) CRP (ACUTE PHASE) Routine 02/25/2017 11: 23 AM LICENSE INSPECTOR 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/HCC) COMPREHENSIVE METABOLIC PANEL Routine 02/25/2017 11:23 AM LICENSE INSPECTOR 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/HCC) skilled nursing current use 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 documented in this encounter Results * (ABNORMAL) CRP (acute phase) (02/25/2017 11:23 AM LICENSE INSPECTOR) Pathologist [facility] C-RP 8.0(H) <8.0 mg/L [facility] [place] Blood specimen (specimen) 02/25/2017 11:23 AM LICENSE INSPECTOR 02/25/2017 11:23 AM LICENSE INSPECTOR Narrative [facility] - 02/26/2017 10:39 AM LICENSE INSPECTOR FASTING:NO FASTING: NO Resulting Agency Comment Performing Organization Information: ?Site ID: [place] ?Name: [facility] ?Address: [facility] [place] [facility] [place] [address] ?Director: Todd Corrigan D.O., MPH Eric Crowder MD LAB BLOOD ORDERABLES Fin al Result Performing Organization Address [facility] Co de Phone Number [facility] [place]es * Erythrocyte sedimentation rate (02/25/2017 11:23 AM LICENSE INSPECTOR) [facility] Erythrocyte sedimentation rate 17 < OR = 20 mm/h [facility] [place] Blood specimen (specimen) 02/25/2017 11:23 AM LICENSE INSPECTOR 02/25/2017 11:23 AM LICENSE INSPECTOR Narrative [facility] - 02/26/2017 10:39 AM LICENSE INSPECTOR FASTING:NO FASTING: NO Resulting Agency Comment Performing Organization Information: ?Site ID: [place] ?Name: [facility] ?Address: [facility] [place] [facility] [place] [address] ?Director: Todd Corrigan D.O. MPH Eric Crowder MD LAB BLOOD ORDERABLES Fin al Result Performing Organization Address [facility]/ZIP Co de Phone Number [facility] [place] * (ABNORMAL) CBC with auto differential (02/25/2017 11:23 AM LICENSE INSPECTOR) [facility] WBC 5.8 3.8 - 10.8 Thousand/ uL [facility] [place] RBC, POC 4.46 3.80 - 5.10 Million/u L [facility] [place] Hgb 11.8 11.7 - 15.5 g/dL [facility] [place] Hct 35.9 35.0 - 45.0 % [facility] [place] MCV 80.5 80.0 - 100.0 fL [facility] [place] MCH 26.5(L) 27.0 - 33.0 pg [facility] [place] MCHC 32.9 32.0 - 36.0 g/dL [facility] [place] Rdw 17.2(H) 11.0 - 15.0 % [facility] [place] Platelets 279 140 - 400 Thousand/ uL [facility] [place] MPV 9.2 7.5 - 12.5 fL [facility] [place] Neutrophils, abs 2,975 1,500 - 7,800 cells/uL [facility] - [...] canceled by t he ancillary Lymphocytes, abs 2,163 850 - 3,900 cells/uL [facility] [place] Monocyte abs 534 200 - 950 cells/uL [facility] [place] Eosinophils, abs 110 15 - 500 cells/uL [facility] [place] Basophils, abs 17 0 - 200 cells/uL [facility] [place] Blast, cell CANCELED 0 cells/uL [facility] [place] Comment:Result canceled by t he ancillary NRBC abs CANCELED 0 cells/uL [facility] [place] Comment:Result canceled by t he ancillary Neutrophils 51.3 % [facility] [place] Neutrophilic bands [...] canceled by t he ancillary Lymphocyte pct 37.3 % [facility] [place] Reactive lymph CANCELED 0 - 10 % [facility] [place] Comment:Result canceled by t he ancillary Monocytes 9.2 % [facility] [place] Eosinophils 1.9 % [facility] [place] Basophils 0.3 % [facility] [place] Blast pct CANCELED % [facility] [place] Comment:Result canceled by t he ancillary NRBC CANCELED 0 /100 WBC [facility] [place] Comment:Result canceled by t he ancillary Comment CANCELED [facility] [place] Comment:Result canceled by t he ancillary Blood specimen (specimen) 02/25/2017 11:23 AM LICENSE INSPECTOR 02/25/2017 11:23 AM LICENSE INSPECTOR Narrative [facility] - 02/26/2017 10:39 AM LICENSE INSPECTOR FASTING:NO FASTING: NO Resulting Agency Comment Performing Organization Information: ?Site ID: [place] ?Name: [facility] ?Address: [address] [address] ?Director: Todd Corrigan D.O., MPH Eric Crowder MD LAB BLOOD ORDERABLES Fin al Result [facility] [place] * (ABNORMAL) Comprehensive metabolic panel (02/25/2017 11:23 AM LICENSE INSPECTOR) Glucose 102(H) 65 - 99 mg/dL [facility] [place] Comment: ? Fasting reference interval For someone without known diabetes, a glucose value between 100 and 125 mg/dL is consistent with prediabetes and should be confirmed with a follow-up test. BUN 9 7 - 25 mg/dL [facility] [place] Creatinine 0.70 0.50 - 1.10 mg/dL [facility] [place] eGFR NON-AFR. [place] 104 > OR = 60 mL/min/1. 73m2 [facility] [...] 31 mmol/L [facility] [place] Calcium 10.1 8.6 - 10.2 mg/dL [facility] [place] Protein, sr 7.3 6.1 - 8.1 g/dL [facility] [place] Albumin 4.6 3.6 - 5.1 g/dL [facility] [place] GLOBULIN 2.7 1.9 - 3.7 g/dL (calc) [facility] [place] Alb/glob ratio 1.7 1.0 - 2.5 (calc) [facility] [place] Bilirubin, total 0.4 0.2 - 1.2 mg/dL [facility] [place] Alk phos 59 33 - 115 U/L [facility] [place] AST 21 10 - 35 U/L [facility] [place] ALT (SGPT) 18 6 - 29 U/L [facility] [place] Blood specimen (specimen) 02/25/2017 11:23 AM LICENSE INSPECTOR 02/25/2017 11:23 AM LICENSE INSPECTOR Narrative [facility] - 02/26/2017 10:39 AM LICENSE INSPECTOR FASTING:NO FASTING: NO Resulting Agency Comment Performing Organization Information: ?Site ID: [place] ?Name: [facility] ?Address: [facility] [place] [facility] [place] [address] [address] ?Director: Todd Corrigan D.O., MPH Eric Crowder MD LAB BLOOD ORDERABLES Fin al Result [facility] [place] documented in this encounter Visit Diagnoses Diagnosis 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 Unspecified inflammatory polyarthropathy termite technician current use 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 documented in this encounter Discontinued Medications Medication Sig Discontinue Reason Start Date End Da te amitriptyline (ELAVIL) 25 mg tablet take 1 tablet by oral route every day at bedtime 06/03/2015 12/29/2016 documented as of this encounter Care Teams Electoral Officer Relationship Specialty Start Date End Date Kevin Bowles MD [facility] [address] [place] [id number] PCP - General 06/19/16 01/16/24 documented as of this encounter
--- OUTSIDE RECORDS SUMMARY | 2024-04-01 11:20 | XMS_ITS | Encounter Summary ---
Author Organization [facility] Address [address] [place] [address] Phone Care Team Providers Care Quarry Plug And Feather Driller Name Role Phone Kevin Bowles MD Primary Care Provider [phone] Eric Crowder MD Unavailable [phone] Encounter Details Date Type Department Care Team (Latest Contact Info) Description 03/04/2017 2:00 PM AUDIOLOGIST Office Visit [facility] [address] [place] [address] Eric Crowder MD [address] [place] [id number] 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/HCC) (Primary Dx) Social History Tobacco Use Types Packs/Day Years Used Date Smoking Tobacco: Never Alcohol Use Standard Drinks/Week Comments Yes 0 (1 standard drink = 0.6 oz pur e alcohol) Comments Unknown Sex and Gender Information Value Date Recorded Sex Assigned at Not on file Legal Sex Female 9:01 PM AUDIOLOGIST Gender Identity Not on file Sexual Orientation Not on file documented as of this encounter Last Filed Vital Signs Vital Sign Reading Time Taken Comments Blood Pressure 138/82 03/04/2017 2:17 PM AUDIOLOGIST Pulse 80 03/04/2017 2:17 PM AUDIOLOGIST Temperature - - Respiratory Rate - - Oxygen Saturation - - Inhaled Oxygen Concentration - - Weight 134.3 kg (296 lb) 03/04/2017 2:17 PM AUDIOLOGIST Height - - Body Mass Index 50.81 12/29/2016 1:51 PM CDT documented in this encounter Progress Notes * Eric Crowder MD - 03/04/2017 2:00 PM CST Images from the original note were not included. Subjective/Objective Patient ID: Monica Buckner is a 46 y.o. female. Chief Complaint No chief complaint on file. Doing well overall. Does have some low back pain on occasion with no radiculopathy. No joint swelling. Feels she is doing well enough SSZ and HCQ. Review of Systems Constitutional: Negative for chills and fever. HENT: Negative. Eyes: Negative. Respiratory: Negative. Negative for cough and shortness of breath. Cardiovascular: Negative. Negative for chest pain. Gastrointestinal: Negative. Genitourinary: Negative. Musculoskeletal: Positive for arthralgias and back pain. Negative for joint swelling. Skin: Negative. Neurological: [...] No synovitis; no joint or muscle ttp; full rom all ext; strength 5/5 all ext Lymphadenopathy: She has no cervical adenopathy. Neurological: She is alert and oriented to person, place, and time. Assessment/Plan Diagnoses and all orders for this visit: 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/HCC) (Primary) Assessment & Plan: Continues to do well with minimal complaints. Has no synovitis on exam and no current joint pain. Recent serology was stable. Cont SSZ 1500 mg bid and HCQ 200 mg bid. Cont routine eye exams while on HCQ. Has standing order for labs and will follow these. F/u 3 months. OLOGIST documented in this encounter Miscellaneous Notes * Assessment & Plan Note - Eric Crowder MD - 03/04/2017 2:54 PM AUDIOLOGIST Associated Problem(s): 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/HCC) (HCC) Continues to do well with minimal complaints. Has no synovitis on exam and no current joint pain. Recent serology was stable. Cont SSZ 1500 mg bid and HCQ 200 mg bid. Cont routine eye exams while on HCQ. Has standing order for labs and will follow these. F/u 3 months. OLOGIST OLOGIST 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 Unspecified inflammatory polyarthropathy documented in this encounter Discontinued Medications Medication Sig Discontinue Reason Start Date End Da te cloNIDine (CATAPRES) 0.2 mg tablet 03/02/2017 03/04/2017 documented as of this encounter Historical Medications * This list may reflect changes made after this encounter. hydroxychloroquin e (PLAQUENIL) 200 mg tablet 02/20/2017 03/18/2017 cloNIDine (CATAPRES) 0.2 mg tablet 03/02/2017 03/04/2017 cloNIDine (CATAPRES-TTS) 0.2 mg/[address] 0.2 mg on the skin once a week. 12/14/2022 added in this encounter Care Teams Quarry Plug And Feather Driller Relationship Specialty Start Date End Date Kevin Bowles MD [facility] [facility] [address] [place] [address] PCP - General 06/19/16 01/16/24 Eric Crowder MD [address] [facility] [address] [place] [address] Rheumatology 01/18/17 documented as of this encounter
--- OUTSIDE RECORDS SUMMARY | 2024-04-01 11:20 | XMS_ITS | Encounter Summary ---
Author Organization [facility] Facility Care Team Providers Care Elementary Science Teacher Name Role Phone Unavailable Primary Care Provider Unavailabl e Encounter Details Date Type Department Care Team (Late st Contact Info) Description 04/01/2015 7:13 AM JALOUSIE INSTALLER - 04/01/2015 4:00 PM JALOUSIE INSTALLER Hospital Encounter [facility] Brendan Tracy MD [address] [facility] [place] [address] Other synovitis and tenosynovitis, left hand; Residual foreign body in soft tissue Social History Tobacco Use Types Packs/Day Years Used Date Smoking Tobacco: Never Assessed Comments Unknown Sex and Gender Information Value Date Recorded Sex Assigned at Not on file Legal Sex Female 9:01 PM JALOUSIE INSTALLER Gender Identity Not on file Sexual Orientation Not on file documented as of this encounter Miscellaneous Notes * Op Note - Provider, MD Miles - 04/01/2015 12:00 AM CST Patient: BLACK BUCKNER. Reg No: [id number] H #: [id number] Admit Dt.: 04/01/2015 : 1970 Pt Type: NOP Room No: OR- Attending: Brendan Beasley M.D. Surgeon: Brendan Beasley M.D. Dictating: Brendan Beasley M.D. Service Dt: 04/01/2015 OPERATIVE REPORT ADDENDUM: During the exposure down to the fascia we did see a very small, hard, approximately 3 millimeter long sliver of hard tissue. Unclear if it was a foreign body, like a small piece of dark metal or a thrombosed small vessel, although it seemed to be abnormally positioned just superficial to the fascia in the distal third of the forearm. This was removed. No evidence of any purulence around it. It was sent to pathology as a separate examination for its own evaluation. Electronically Authenticated and Edited by: Brendan Beasley MD On 04/09/2015 12:42 PM JALOUSIE INSTALLER Brendan Beasley M.D. [facility]:hanna #[id number] Editing MT: [email or web address] TD: 04/01/2015 12:02 PM cc: Brendan Beasley M.D. * Op Note - Provider, MD Miles - 04/01/2015 12:00 AM CST Patient: BLACK BUCKNER Reg No: [id number] [facility] #: [id number] Admit Dt.: 04/01/2015 : 1970 Pt Type: NOP Room No: OR- Attending: Brendan Beasley M.D. Surgeon: Brendan Beasley M.D. Dictating: Brendan Beasley M.D. Service Dt: 04/01/2015 OPERATIVE REPORT [employer]: Migue Campbell M.D. ANESTHESIA: General with a regional block. PREOPERATIVE DIAGNOSIS (ES): Extensor tenosynovitis, left wrist level, involving the extensor digitorum communis tendons to all fingers and extensor indicis proprius and extensor digiti minimi. POSTOPERATIVE DIAGNOSIS (ES): Extensor tenosynovitis, left wrist level, involving the extensor digitorum communis tendons to all fingers and extensor indicis proprius and extensor digiti minimi. NAME OF OPERATION: Extensive left dorsal wrist tenosynovectomy of the extensor tendons for the wrist and hand with specific debridement of the extensor indicis proprius, extensor digitorum communis tendon of the index, long, ring, small, extensor digiti minimi. INDICATIONS FOR PROCEDURE: This patient has been evaluated by me in the past and came in with new dorsal left wrist pain and inability to extend her small finger, ring finger with her wrist in extension. Magnetic resonance imaging confirmed extensive infiltrative tenosynovitis of the fourth compartment, at least, on the left wrist. When I saw her preoperatively at the time of surgery, she now was unable to extend the long finger with the wrist extended. We had offered her the above procedure with possible tendon transfers as needed. I had gone over the risks and benefits of surgery with her, risks including, but not limited to, risk of anesthesia, bleeding, infection, nerve injury, tendon injury, possibility of needing further surgery, having stiffness or pain. She understood and wished to proceed. DESCRIPTION OF PROCEDURE: After consent was reviewed and the operative site was marked, patient was brought to the operating room, kept supine on the operative stretcher. She underwent induction of general anesthesia. Preoperative antibiotics were given. Left arm was prepped and draped with Chlorhexidine with a high arm tourniquet. We had a verbal timeout to verify the above information. We exsanguinated the limb and inflated the tourniquet. We then made a longitudinal incision in the dorsal aspect of the left wrist. We carried this down to the extensor retinaculum. We then incised the extensor retinaculum from out in the hand at about the metacarpal level, back over the fourth compartment all the way into the distal third of the forearm, where we could see muscle bellies for the extensor tendons. Upon doing so, it was clear that there was some fatty and infiltrative adherent tenosynovitis around the tendons. There was not a lot of fluid, more just this tissue. We proceeded with our tenosynovectomy, working sequentially along each of the tendons. We first freed the extensor digitorum communis tendon to the index finger, retracted it safely. We then released all the adherent tissue around the extensor digitorum communis tendon for the long finger, then the extensor digitorum communis tendon of the ring finger and then the extensor digitorum communis tendon of the small finger. Finally we tenolysed the extensor indicis proprius of the index finger. It was clear that all the tendons were completely intact. There was no evidence of fraying or impending rupture. However, this adherent extensor tenosynovitis had been most stuck just at the level of the distal radius, where each of the tendons was really stuck together and stuck down to the radius. With all of them free, we then worked distally on those tendons out at the hand level, where there was a second collection of this adherent tissue. We freed each of them one more time in this level and then excised the abnormal tissues, sending it for pathology and culture. Those tendons were completely freed. We could see proximally where you could see the muscle belly of the extensor pollicis longus tendon, that there was some additional fatty tissue around this. We went ahead and opened the extensor pollicis longus or the third extensor compartment from underneath our split in the retinaculum and we were able to see the extensor pollicis longus, which was intact. This was just gently debrided. Extensor digiti minimi tendon was also visible in the most ulnar aspect of our wound. We went ahead and opened between the septum of 4 and 5, extensor digiti minimi tendon was also intact, although, this we did formally debride some of the tenosynovitis around this. We did make one more, just superficial opening in the fascia out in the hand, more ulnar to be able to see the extensor digiti minimi tendon at that level, although, it appeared to be fairly clean and intact. In examining her radius and distal radioulnar joint, there were no obvious areas where the ulna or radius had protruded through the underlying tissue to cause any specific fraying or osteophytes to take down. She did have an interesting appearance of her distal radius, where the extensor pollicis longus was somewhat elevated and sitting behind Marcos's tubercle, although, there was a higher ridge of bone supporting it compared to the fourth compartment, however, given the fact that there was no fraying on the radial sided tendons of the fourth compartment, I did not think this was the source of her complaints and we did not further debride this down. At this point, the wound was thoroughly irrigated. We did not see any more tenosynovitis and the tendons were all gliding normally. We used 3-0 Ethibond suture to repair the extensor retinaculum all dorsal to the tendons themselves, leaving the extensor pollicis longus in its [place] location. We did excise the posterior interosseous nerve prior to closure to assist in decreasing her wrist pain more long-term. At this point, the tourniquet was left down and we confirmed good hemostasis, closed the skin with Monocryl suture, Steri-Strips applied and soft dressing and splint applied. Patient was awoke and taken to recovery in stable condition. Because of the extensive nature of this debridement, she did have a regional block before coming in the room. POST-OPERATIVE PAIN MANAGEMENT REQUEST: I have requested that regional anesthesia for pain management be performed by a qualified health care provider from the Anesthesiology department for postoperative pain management. Based upon the degree of postoperative pain that is expected from this procedure, the skills and experience of a qualified health care provider from the Anesthesiology department are required. This expertise in pain management will improve pain relief and aid in decreasing analgesic side effects. SPECIMENS REMOVED: Specimens were sent of the tissue to pathology and culture. INTRAOPERATIVE FLUIDS: Per the anesthesia record. SPONGE/INSTRUMENT/NEEDLE COUNTS: Counts correct. CONDITION ON DISCHARGE FROM OPERATING ROOM: Condition stable to recovery. COMPLICATIONS: None. PRESENCE STATEMENT: I was present for the entire case. Electronically Authenticated by: Brendan Beasley MD On 04/09/2015 12:42 PM JALOUSIE INSTALLER Brendan Beasley M.D. [facility]:jacqui #[id number] Editing MT: [email or web address] TD: 04/01/2015 11:44 AM cc: Brendan Beasley M.D. documented in this encounter Plan of Treatment Not on file documented as of this encounter Procedures Procedure Name Priority Date/Time Associated Diagnosis Comments MYCOBACTERIOLOGY (AFB) CULTURE, [facility] Routine 04/01/2015 10:50 AM JALOUSIE INSTALLER FUNGAL CULTURE, CDR Routine 04/01/2015 1 0:50 AM JALOUSIE INSTALLER AEROBIC CULTURE AND GRAM STAIN, CDR Routine 04/01/2015 10:50 AM JALOUSIE INSTALLER URINE CHORIONIC GONADOTROPIN (HCG) Routine 04/01/2015 7:17 AM JALOUSIE INSTALLER ALL MICROBIOLOGY REPORT SECTION Routine 04/01/2015 12:00 AM JALOUSIE INSTALLER ALL MICROBIOLOGY REPORT SECTION Routine 04/01/2015 12:00 AM JALOUSIE INSTALLER ALL MICROBIOLOGY REPORT SECTION Routine 04/01/2015 12:00 AM JALOUSIE INSTALLER DISCHARGE LABORATORY CUMULATIVE REPORT 04/01/2015 SURGICAL PATHOLOGY 04/01/2015 documented in this encounter Results * Mycobacteriology (AFB) culture (04/01/2015 10:50 AM JALOUSIE INSTALLER) Tissue (Wrist, left) 04/01/2015 10:50 AM JALOUSIE INSTALLER 04/01/2015 11:51 AM JALOUSIE INSTALLER Narrative HISTORICAL RESULTS - 06/03/2015 9:42 AM CDT No growth of acid-fast bacilli Historical Provider MD LAB MICROBIOLOGY - GENERA L ORDERABLES Final Result Performing Organization Address [facility] de Phone Number HISTORICAL RESULTS * Fungal culture (04/01/2015 10:50 AM JALOUSIE INSTALLER) Tissue (Wrist, left) 04/01/2015 10:50 AM JALOUSIE INSTALLER 04/01/2015 11:51 AM JALOUSIE INSTALLER Narrative HISTORICAL RESULTS - 04/29/2015 8:41 AM JALOUSIE INSTALLER No growth of fungus Historical Provider MD LAB MICROBIOLOGY - GENERA L ORDERABLES Final Result Performing Organization Address [facility] de Phone Number HISTORICAL RESULTS * Aerobic culture and Gram stain (04/01/2015 10:50 AM JALOUSIE INSTALLER) Tissue (Wrist, left) 04/01/2015 10:50 AM JALOUSIE INSTALLER 04/01/2015 11:50 AM JALOUSIE INSTALLER Impressions HISTORICAL RESULTS - 04/03/2015 10:33 AM JALOUSIE INSTALLER Specimens submitted from normally sterile body sites will have all bacterial morphotypes identified. Specimens that contain grossly mixed odalys and/or are from body sites that are not normally sterile will be examined for Staphylococcus aureus, Pseudomonas aeruginosa, beta-hemolytic strep, vancomycin-resistant Enterococcus and fungus. If any of these are isolated, the organism will be reported. Current interpretive data was last revised on 2012. Narrative HISTORICAL RESULTS - 04/03/2015 10:33 AM JALOUSIE INSTALLER Few polymorphonuclear leukocytes seen. No organisms seen. No growth Historical Provider MD LAB MICROBIOLOGY - GENERA L ORDERABLES Final Result HISTORICAL RESULTS * Urine chorionic gonadotropin (HCG) (04/01/2015 7:17 AM JALOUSIE INSTALLER) HCG, ur Negative HISTORICAL RESULTS Urine 04/01/2015 7:17 AM JALOUSIE INSTALLER Brendan Beasley MD LAB BLOOD ORDERABLES Joi l Result HISTORICAL RESULTS * Surgical pathology (04/01/2015) Narrative 04/01/2015 Ordered by an unspecified provider. Result [facility] Historical Provider MD LAB PATHOLOGY ORDERABLES Final Result * DISCHARGE LABORATORY CUMULATIVE REPORT (04/01/2015) Narrative 04/01/2015 Ordered by an unspecified provider. Result [facility] Provider MD LAB BLOOD ORDERABLES Joi l Result * All Microbiology Report Section (04/01/2015 12:00 AM JALOUSIE INSTALLER) 04/01/2015 Narrative HISTORICAL RESULTS - 06/03/2015 12:46 PM CDT ? [facility] ?[address] [facility] [place] ?[place], [place] [address] ? Patient Name: ??BLACK BUCKNER ? Med Rec Number: [id number] ? Fin Number: ?[id number] ? Date: ?1970 ? Sex/Age: ? Female 44 years ? Admit Date: ?04/01/2015 ? Discharge Date: 04/01/2015 ? Doctor: ?Calfee , Brendan P ? Facility: ?[facility] ? Location: ?OR ?* Abnormal ??A Alert ??f Footnote ??^ Corrected ??L Low ??H High ?i Interp Data ??@ Ref Lab ? Chart Type:Cumulative ?* * * * MICROBIOLOGY - MYCOBACTERIOLOGY * * * * ?PROCEDURE: Mycobacteriology Culture ? SOURCE: Tissue ? COLLECTED: 04/01/15 ??1050 ?BODY SITE: Wrist, left ? STARTED: 04/01/15 ??1152 ? FREE TEXT SOURCE: ? FINAL REPORT ? REPORTED: 06/03/15 0942 ? No growth of acid-fast bacilli ? ORDER COMMENTS ? (1)Left wrist tenosynovitis ? Specimen collected in the operating room ? us Historical Provider MD LAB MICROBIOLOGY - GENERA L ORDERABLES Final Result HISTORICAL RESULTS * All Microbiology Report Section (04/01/2015 12:00 AM JALOUSIE INSTALLER) 04/01/2015 Narrative HISTORICAL RESULTS - 04/29/2015 9:30 AM JALOUSIE INSTALLER ? [facility] ?[address] [facility] [place] ?[place], [place] [address] ? Patient Name: ??BLACK BUCKNER ? Med Rec Number: [id number] ? Fin Number: ?[id number] ? Date: ?1970 ? Sex/Age: ? Female 44 years ? Admit Date: ?04/01/2015 ? Discharge Date: 04/01/2015 ? Doctor: ?Brendan Beasley ? Facility: ?[facility] ? Location: ?OR ?* Abnormal ??A Alert ??f Footnote ??^ Corrected ??L Low ??H High ?i Interp Data ??@ Ref Lab ? Chart Type:Cumulative ?* * * * MICROBIOLOGY - MYCOLOGY * * * * ?PROCEDURE: Mycology Culture ? SOURCE: Tissue ? COLLECTED: //16 ??1050 ?BODY SITE: Wrist, left ? STARTED: 01/11/16 ??1152 ? FREE TEXT SOURCE: ? FINAL REPORT ? REPORTED: 04/29/16 0841 ? No growth of fungus ? ORDER COMMENTS ? (1)Left wrist tenosynovitis ? Specimen collected in the operating room ? us Historical Provider MD LAB MICROBIOLOGY - GENERA L ORDERABLES Final Result HISTORICAL RESULTS * All Microbiology Report Section (04/01/2015 12:00 AM JALOUSIE INSTALLER) 04/01/2015 Narrative HISTORICAL RESULTS - 04/03/2015 12:48 PM JALOUSIE INSTALLER ? [facility] ?[address] [facility] [place] ?[place] [address] ? Patient Name: ??BLACK BUCKNER ? Med Rec Number: [id number] ? Fin Number: ?[id number] ? Date: ?1970 ? Sex/Age: ? Female 44 years ? Admit Date: ?04/01/2015 ? Discharge Date: 04/01/2015 ? Doctor: ?Brendan Beasley ? Facility: ?[facility] ? Location: ?OR ?* Abnormal ??A Alert ??f Footnote ??^ Corrected ??L Low ??H High ?i Interp Data ??@ Ref Lab ? Chart Type:Cumulative ?* * * * MICROBIOLOGY - MISCELLANEOUS * * * * ?PROCEDURE: Aerobic Culture and Gram Stain ? SOURCE: Tissue ? COLLECTED: 04/01/15 ??1050 ?BODY SITE: Wrist, left ? STARTED: 04/01/15 ??1152 ? FREE TEXT SOURCE: ? DIRECT SPECIMEN EXAMINATION ? Stain ? REPORTED: 04/01/15 1420 ? Few polymorphonuclear leukocytes seen. ? No organisms seen. ? FINAL REPORT ? REPORTED: 04/03/15 1033 ? No growth ? ORDER COMMENTS ? (1)Left wrist tenosynovitis ? Specimen collected in the operating room ?* * * ??Interpretive Results ??* * * ? (1)Specimens submitted from normally sterile body sites will have ? all bacterial morphotypes identified. Specimens that contain ? grossly mixed odalys and/or are from body sites that are not ? normally sterile will be examined for Staphylococcus aureus, ? Pseudomonas aeruginosa, beta-hemolytic strep, ? vancomycin-resistant Enterococcus and fungus. If any of these ? are isolated, the organism will be reported.Current interpretive ? data was last revised on 2012. ? us Historical Provider LAB MICROBIOLOGY - GENERA L ORDERABLES Final Result HISTORICAL RESULTS documented in this encounter Visit Diagnoses Diagnosis Other synovitis and tenosynovitis, left hand Residual foreign body in soft tissue documented in this encounter
--- OUTSIDE RECORDS SUMMARY | 2024-04-01 11:20 | XMS_ITS | Encounter Summary ---
Author Organization [facility] Address [address] [place] [address] Phone Care Team Providers Care Aerodynamic Consultant Name Role Phone Kevin Bowles MD Primary Care Provider [phone] Eric Crowder MD Unavailable [phone] Reason for Visit * Reason Comments Arthritis Encounter Details Date Type Department Care Team (Latest Contact Info) Description 05/31/2018 10:15 AM CDT Office Visit [facility] [address] [address] Christa Bueno PA [facility] [place] [address] 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/HCC) (Primary Dx) Social History Tobacco Use Types Packs/Day Years Used Date Smoking Tobacco: Never Alcohol Use Standard Drinks/Week Comments Yes 0 (1 standard drink = 0.6 oz pur e alcohol) Comments Unknown Sex and Gender Information Value Date Recorded Sex Assigned at Not on file Legal Sex Female 9:01 PM APPLICATIONS MANAGER Gender Identity Not on file Sexual Orientation Not on file documented as of this encounter Last Filed Vital Signs Vital Sign Reading Time Taken Comments Blood Pressure 130/80 05/31/2018 10:16 AM CDT Pulse 90 05/31/2018 10:16 AM CDT Temperature - - Respiratory Rate - - Oxygen Saturation - - Inhaled Oxygen Concentration - - Weight 136.5 kg (301 lb) 05/31/2018 10:16 AM CDT Height - - Body Mass Index 51.67 02/28/2018 11:12 AM APPLICATIONS MANAGER documented in this encounter Ordered Prescriptions Prescription Sig Dispense Quantity Refills Last Filled Start Date End Date sulfaSALAzine EN (AZULFIDINE EN) 500 mg EC tablet Take 3 tabs PO bid 180 tablet 2 05/31/2018 09/08/2018 folic acid (FOLVITE) 1 mg tablet Take 1 tablet (1 mg total) by mouth daily Take one tab daily 30 tablet 5 05/31/2018 11/29/2018 hydroxychloroquine (PLAQUENIL) 200 mg tablet Take 1 tablet (200 mg total) by mouth 2 (two) times a day 60 tablet 2 05/31/2018 09/08/2018 documented in this encounter Progress Notes * Christa Willis PA - 05/31/2018 10:15 AM CDT Images from the original note were not included. Subjective/Objective Patient ID: Monica Buckner is a 47 y.o. female. Chief Complaint Arthritis HPI Returns for routine follow up. Overall feels fatigued but attributes this to poor sleep. Occasionally has some foot and hand pain especially with use. Was having lots of pain in her MTPs for a few weeks but has since resolved. Denies fevers, infections, rashes, mouth sores, cough, dyspnea, n/v. Joint pain today is 0 /10. AM stiffness = few minutes Review of Systems Constitutional: Positive for fatigue. Negative for chills and fever. HENT: Negative for congestion and mouth sores. Respiratory: Negative for cough and shortness of breath. Cardiovascular: Negative for chest pain. Gastrointestinal: Negative for abdominal pain, diarrhea, nausea and vomiting. Musculoskeletal: Negative for arthralgias. Negative for myalgias. Skin: Negative [...] normal. no wheezes. no rales. Musculoskeletal: See cdai Lymphadenopathy: no cervical adenopathy. Neurological: alert and oriented to person, place, and time. Skin: Skin is warm and dry. No rash noted. Psychiatric: normal mood and affect. speech is normal and behavior is normal. Cognition and memory are normal. Assessment/Plan Diagnoses and all orders for this visit: 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/HCC) (Primary) Assessment & Plan: Low cdai. Notes recent [...] exam. Continue routine eye exams to monitor forretinal toxicity. Follow up in 3 months. Sooner if needed. Other orders - hydroxychloroquine (PLAQUENIL) 200 mg tablet; Take 1 tablet (200 mg total) by mouth 2 (two) timesa day - folic acid (FOLVITE) 1 mg tablet; Take 1 tablet (1 mg total) by mouth daily Take one tab daily - sulfaSALAzine EN (AZULFIDINE EN) 500 mg EC tablet; Take 3 tabs PO bid Cosigned by Eric Crowder MD at 05/31/2018 4:33 PM CDT documented in this encounter Miscellaneous Notes * Assessment & Plan Note - Christa Willis PA - 05/31/2018 12:18 PM CDTAssociated Problem(s): 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/HCC) (HCC) Low cdai. Notes recent flare in hands [...] exam. Continue routine eye exams to monitor forretinal toxicity. Follow up in 3 months. Sooner if needed. 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 Unspecified inflammatory polyarthropathy documented in this encounter Discontinued Medications Medication Sig Discontinue Reason Start Date End Da te hydroxychloroquine (PLAQUENIL) 200 mg tablet Take 1 tablet (200 mg total) by mouth 2 (two) times a day. Reorder 11/29/2017 05/31/2018 folic acid (FOLVITE) 1 mg tablet Take 1 tablet (1 mg total) by mouth daily. Take one tab daily Reorder 11/29/2017 05/31/2018 sulfaSALAzine EN (AZULFIDINE EN) 500 mg EC tablet Take 3 tabs PO bid Reorder 11/29/2017 05/31/2018 documented as of this encounter Care Teams Aerodynamic Consultant Relationship Specialty Start Date End Date Kevin Bowles MD [facility] [facility] [address] [place] [address] PCP - General 06/19/16 01/16/24 Eric Crowder MD [address] [facility] [address] [place] [address] Rheumatology 01/18/17 documented as of this encounter
--- OUTSIDE RECORDS SUMMARY | 2024-04-01 11:20 | XMS_ITS | Encounter Summary ---
Author Organization [facility] Address [address] [place] [address] Phone Care Team Providers Care Layboy Operator Name Role Phone Kevin Bowles MD Primary Care Provider [phone] Eric Crowder MD Unavailable [phone] Reason for Referral * Diagnostic Imaging (Routine) - Closed Specialty Diagnoses / Procedures Referred By Contac t Referred To Contact Diagnoses 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/HCC) (HCC) Procedures US Hand Complete Eric Crowder MD Phone: tel: fax: Referral ID Status Reason Start Date Expiration Date Visits Re quested Visits Authorized [id number] Closed 06/01/2017 11/28/2017 1 1 Reason for Visit * Diagnostic Imaging (Routine) - Closed Specialty Diagnoses / Procedures Referred By Contac t Referred To Contact Diagnoses 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/HCC) (HCC) Procedures US Hand Complete Eric Crowder MD Phone: tel: fax: Referral ID Status Reason Start Date Expiration Date Visits Re quested Visits Authorized [id number] Closed 06/01/2017 11/28/2017 1 1 Encounter Details Date Type Department Care Team (Latest Contact Info) Description 06/02/2017 1:36 PM CDT - 06/02/2017 11:59 PM CDT Hospital Encounter [facility] [address] [place] [address] 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/HCC) Discharge Disposition: Discharge to home or self care Social History Tobacco Use Types Packs/Day Years Used Date Smoking Tobacco: Never Alcohol Use Standard Drinks/Week Comments Yes 0 (1 standard drink = 0.6 oz pur e alcohol) Comments Unknown Sex and Gender Information Value Date Recorded Sex Assigned at Not on file 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 3 ergocalciferol (VITAMIN D) 50,000 unit capsule TAKE 1 CAPSULE BY MOUTH ONCE WEEKLY. 12 capsule 1 12/14/2016 8 ergocalciferol (VITAMIN D) 50,000 unit capsule Take 1 capsule (50,000 Units total) by mouth once a week 12/14/2016 4 hydroxychloroqui ne (PLAQUENIL) 200 mg tablet TAKE ONE TABLET BY MOUTH TWICE A DAY 60 tablet 3 03/18/2017 8 hydroxychloroqui ne (PLAQUENIL) 200 mg tablet 05/28/2017 8 hydrOXYchloroQUI NE (PLAQUENIL) 200 mg tablet Take 1 tablet (200 mg total) by mouth 2 (two) times a day 11/12/2016 3 ibuprofen (ADVIL,MOTRIN) 200 mg tablet take 1 tablet by oral route every 6 hours as needed with food 0 0 06/03/2015 3 lifitegrast (XIIDRA) 5 % dropperette instill 1 drop by ophthalmic route 2 times every day into both eyes approximately 12 hours apart 0 each 0 06/30/2016 9 PROAIR HFA 90 mcg/actuation inhaler 03/24/2017 4 sulfaSALAzine EN (AZULFIDINE EN) 500 mg EC tablet TAKE THREE TABLETS BY MOUTH TWICE A DAY AFTER MEALS 180 tablet 05/28/2017 8 documented as of this encounter Discharge Disposition Disposition Code Departure Means Destination Discharge to home or self care documented in this encounter Plan of Treatment Not on file documented as of this encounter Procedures Procedure Name Priority Date/Time Associated Diagnosis Comments US HAND COMPLETE Schedule Routine, Read Routine (OP Routine) 06/02/2017 2:39 PM CDT 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/HCC) documented in this encounter Results * US Hand Complete (06/02/2017 2:39 PM CDT) Anatomical Region Laterality Modality Hand N/A Ultrasound us Eric Crowder MD IMG US PROCEDURES Final Result documented in this encounter Visit Diagnoses Diagnosis 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/HCC) (HCC) Unspecified inflammatory polyarthropathy documented in this encounter Care Teams Layboy Operator Relationship Specialty Start Date End Date Kevin Bowles MD [facility] [address] [place] [address] PCP - General 06/19/16 01/16/24 Eric Crowder MD [address] [place] [address] Rheumatology 01/18/17 documented as of this encounter
--- OUTSIDE RECORDS SUMMARY | 2024-04-01 11:20 | XMS_ITS | Encounter Summary ---
Author Organization [facility] Address [address] [place] [address] Phone Care Team Providers Care Speech Communication Professor Name Role Phone Kevin Bowles MD Primary Care Provider [phone] Eric Crowder MD Unavailable [phone] Encounter Details Date Type Department Care Team (Late st Contact Info) Description 12/01/[address] [address] Cat Jones Social History Tobacco Use Types Packs/Day Years Used Date Smoking Tobacco: Never Alcohol Use Standard Drinks/Week Comments Yes 0 (1 standard drink = 0.6 oz pur e alcohol) Comments Unknown Sex and Gender Information Value Date Recorded Sex Assigned at Not on file 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 Thanks. Referral faxed to [phone]. documented in this encounter Plan of Treatment Not on file documented as of this encounter Visit Diagnoses Not on filedocumented in this encounter Care Teams Speech Communication Professor Relationship Specialty Start Date End Date Kevin Bowles MD [address] [facility] [facility] [address] [address] [place] [address] PCP - General 06/19/16 01/16/24 Eric Crowder MD [address] [facility] [address] [place] [address] Rheumatology 01/18/17 documented as of this encounter
--- OUTSIDE RECORDS SUMMARY | 2024-04-01 11:20 | XMS_ITS | Encounter Summary ---
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 Inspector Name Role Phone Unavailable Primary Care Provider Unavailabl e Encounter Details Date Type Department Care Team (Latest Contact Info) Description 11/21/2014 11:07 AM CDT - 11/21/2014 11:59 PM CDT Hospital Encounter [facility] Jericho Galvan MD [address] [place] [address] Bisi Francisco NP [address] [facility] [address] [place] [address] Other abnormal findings on radiological examination of breast; Lipoma of other skin and subcutaneous tissue; Lump or mass in breast Social History Tobacco Use Types Packs/Day Years Used Date Smoking Tobacco: Never Assessed Comments Unknown Sex and Gender Information Value Date Recorded Sex Assigned at Not on file 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 Gender Identity Not on file Sexual Orientation Not on file documented as of this encounter Plan of Treatment Not on file documented as of this encounter Procedures Procedure Name Priority Date/Time Associated Diagnosis Comments US BREAST LIMITED Routine 11/21/2014 2:4 8 PM CDT US BREAST LIMITED Routine 11/21/2014 2:4 8 PM CDT DIAGNOSTIC MAMMOGRAM BILATERAL W FELIPE Routine 11/21/2014 12:00 AM CDT documented in this encounter Results * US Breast Limited (11/21/2014 2:48 PM CDT) Anatomical Region Laterality Modality Breast N/A Ultrasound 11/21/2014 2:48 PM CDT Narrative 11/27/2014 7:41 AM CDT DIGITAL BILATERAL DIAGNOSTIC MAMMOGRAM WITH CAD, BILATERAL BREAST ULTRASOUND: CLINICAL HISTORY: 44-year-old female who palpates a lump in the upper inner right breast, presents for baseline screening mammography. ?? Patient reports no family history of breast cancer. Three view bilateral digital mammography was performed, with tomosynthesis views obtained in the CC and MLO projections. ??Coned compression CC and lateral standard and tomosynthesis views of the right breast were also obtained. ??A skin marker has been placed over the area of palpable concern. There are scattered fibroglandular tissue densities. ??Normal intramammary lymph nodes are noted in the right axillary tail. ??In the left breast at approximately 2 o'clock, there is a subcutaneous smooth, ovoid circumscribed mass measuring approximately 7 mm. ?? Slight asymmetry in the right breast 9 o'clock position resolves with coned compression views. ??In the right breast upper inner quadrant, the skin marker appears to associate to a large lipoma. Ultrasound was performed. ??In the right breast at 2 o'clock 3B location, there is a lipoma measuring 2.4 x 3.8 x 1.4 cm, correlating to the mammographic findings and palpable mass. ??In the right lateral central breast where asymmetry was questioned on mammographic views, there is normal underlying mixed fibrofatty parenchyma. In the left breast in the 2:30 position 1A location, there is a smooth, ovoid well-circumscribed hypoechoic solid mass measuring 1 cm. ??This is located just beneath the skin in the subcutaneous fat. ?? No internal vascularity is identified. ??There is no associated architectural distortion or other abnormality. ??This likely represents a benign fibroadenoma or complex cyst. IMPRESSION: BI-RADS category 3: Probably benign finding - short interval follow-up recommended. The patient's palpable lump in the right breast upper inner quadrant correlates to a benign lipoma. ??An incidental benign-appearing mass in the left breast 2:30 position likely reflects a fibroadenoma or complicated cyst. ??Follow-up ultrasound in 6 months is recommended to document stability. The results from this exam have been communicated to the patient. Overall assessment: Probably benign. CMM/mf Radiologist: BETSEY SANFORD MD ?? Attending: ??JERICHO CULVER M.D. Requesting: BISI FRANCISCO Requesting Fax: ?? Requesting ID: [id number] Attending Fax: ?? Attending ID: ?? [id number] Completed Time: ?? 11/21/2014 2:48 PM Dictated Time: ?11/21/2014 3:47 PM Transcribed Time: 11/21/2014 7:07 PM Signed by: ?BETSEY SANFORD MD ?? on 11/27/2014 07:41 AM Report To 1 ID: Report To 1 Name: , Report To 1 FAX: Report To 2 ID: Report To 2 Name: , Report To 2 FAX: Report To 3 ID: Report To 3 Name: , Report To 3 FAX: NextGen Order #: Procedure Note Provider, MD Miles - 07/26/2016 DIGITAL BILATERAL DIAGNOSTIC MAMMOGRAM WITH CAD, BILATERAL BREAST ULTRASOUND: CLINICAL HISTORY: 44-year-old female who palpates a lump in the upper inner right breast, presents for baseline screening mammography. Patient reports no family history of breast cancer. Three view bilateral digital mammography was performed, with tomosynthesis views obtained in the CC and MLO projections. Coned compression CC and lateral standard and tomosynthesis views of the right breast were also obtained. A skin marker has been placed over the area of palpable concern. There are scattered fibroglandular tissue densities. Normal intramammary lymph nodes are noted in the right axillary tail. In the left breast at approximately 2 o'clock, there is a subcutaneous smooth, ovoid circumscribed mass measuring approximately 7 mm. Slight asymmetry in the right breast 9 o'clock position resolves with coned compression views. In the right breast upper inner quadrant, the skin marker appears to associate to a large lipoma. Ultrasound was performed. In the right breast at 2 o'clock 3B location, there is a lipoma measuring 2.4 x 3.8 x 1.4 cm, correlating to the mammographic findings and palpable mass. In the right lateral central breast where asymmetry was questioned on mammographic views, there is normal underlying mixed fibrofatty parenchyma. In the left breast in the 2:30 position 1A location, there is a smooth, ovoid well-circumscribed hypoechoic solid mass measuring 1 cm. This is located just beneath the skin in the subcutaneous fat. No internal vascularity is identified. There is no associated architectural distortion or other abnormality. This likely represents a benign fibroadenoma or complex cyst. IMPRESSION: BI-RADS category 3: Probably benign finding - short interval follow-up recommended. The patient's palpable lump in the right breast upper inner quadrant correlates to a benign lipoma. An incidental benign-appearing mass in the left breast 2:30 position likely reflects a fibroadenoma or complicated cyst. Follow-up ultrasound in 6 months is recommended to document stability. The results from this exam have been communicated to the patient. Overall assessment: Probably benign. CMM/mf Radiologist: BETSEY SANFORD MD Attending: JERICHO CULVER M.D. Requesting: BISI FRANCISCO Requesting Requesting ID: [id number] Attending Attending ID: [id number] Completed Time: 11/21/2014 2:48 PM Dictated Time: 11/21/2014 3:47 PM Transcribed Time: 11/21/2014 7:07 PM Signed by: BETSEY SANFORD MD on 11/27/2014 07:41 AM Report To 1 ID: Report To 1 Name: , Report To 1 FAX: Report To 2 ID: Report To 2 Name: , Report To 2 FAX: Report To 3 ID: Report To 3 Name: , Report To 3 FAX: NextGen Order #: us Historical Provider MD THORNTON US PROCEDURES Final R esult * US Breast Limited (11/21/2014 2:48 PM CDT) Anatomical Region Laterality Modality Breast N/A Ultrasound 11/21/2014 2:48 PM CDT Narrative 11/27/2014 7:41 AM CDT DIGITAL BILATERAL DIAGNOSTIC MAMMOGRAM WITH CAD, BILATERAL BREAST ULTRASOUND: CLINICAL HISTORY: 44-year-old female who palpates a lump in the upper inner right breast, presents for baseline screening mammography. ?? Patient reports no family history of breast cancer. Three view bilateral digital mammography was performed, with tomosynthesis views obtained in the CC and MLO projections. ??Coned compression CC and lateral standard and tomosynthesis views of the right breast were also obtained. ??A skin marker has been placed over the area of palpable concern. There are scattered fibroglandular tissue densities. ??Normal intramammary lymph nodes are noted in the right axillary tail. ??In the left breast at approximately 2 o'clock, there is a subcutaneous smooth, ovoid circumscribed mass measuring approximately 7 mm. ?? Slight asymmetry in the right breast 9 o'clock position resolves with coned compression views. ??In the right breast upper inner quadrant, the skin marker appears to associate to a large lipoma. Ultrasound was performed. ??In the right breast at 2 o'clock 3B location, there is a lipoma measuring 2.4 x 3.8 x 1.4 cm, correlating to the mammographic findings and palpable mass. ??In the right lateral central breast where asymmetry was questioned on mammographic views, there is normal underlying mixed fibrofatty parenchyma. In the left breast in the 2:30 position 1A location, there is a smooth, ovoid well-circumscribed hypoechoic solid mass measuring 1 cm. ??This is located just beneath the skin in the subcutaneous fat. ?? No internal vascularity is identified. ??There is no associated architectural distortion or other abnormality. ??This likely represents a benign fibroadenoma or complex cyst. IMPRESSION: BI-RADS category 3: Probably benign finding - short interval follow-up recommended. The patient's palpable lump in the right breast upper inner quadrant correlates to a benign lipoma. ??An incidental benign-appearing mass in the left breast 2:30 position likely reflects a fibroadenoma or complicated cyst. ??Follow-up ultrasound in 6 months is recommended to document stability. The results from this exam have been communicated to the patient. Overall assessment: Probably benign. CMM/mf Radiologist: BETSEY SANFORD MD ?? Attending: ??BISI FRANCISCO Requesting: BISI FRANCISCO Requesting Fax: ?? Requesting ID: [id number] Attending Fax: ?? Attending ID: ?? [id number] Completed Time: ?? 11/21/2014 2:48 PM Dictated Time: ?11/21/2014 3:47 PM Transcribed Time: 11/21/2014 7:07 PM Signed by: ?BETSEY SANFORD MD ?? on 11/27/2014 07:41 AM Report To 1 ID: Report To 1 Name: , Report To 1 FAX: Report To 2 ID: Report To 2 Name: , Report To 2 FAX: Report To 3 ID: Report To 3 Name: , Report To 3 FAX: NextGen Order #: Procedure Note Provider, MD Miles - 07/26/2016 DIGITAL BILATERAL DIAGNOSTIC MAMMOGRAM WITH CAD, BILATERAL BREAST ULTRASOUND: CLINICAL HISTORY: 44-year-old female who palpates a lump in the upper inner right breast, presents for baseline screening mammography. Patient reports no family history of breast cancer. Three view bilateral digital mammography was performed, with tomosynthesis views obtained in the CC and MLO projections. Coned compression CC and lateral standard and tomosynthesis views of the right breast were also obtained. A skin marker has been placed over the area of palpable concern. There are scattered fibroglandular tissue densities. Normal intramammary lymph nodes are noted in the right axillary tail. In the left breast at approximately 2 o'clock, there is a subcutaneous smooth, ovoid circumscribed mass measuring approximately 7 mm. Slight asymmetry in the right breast 9 o'clock position resolves with coned compression views. In the right breast upper inner quadrant, the skin marker appears to associate to a large lipoma. Ultrasound was performed. In the right breast at 2 o'clock 3B location, there is a lipoma measuring 2.4 x 3.8 x 1.4 cm, correlating to the mammographic findings and palpable mass. In the right lateral central breast where asymmetry was questioned on mammographic views, there is normal underlying mixed fibrofatty parenchyma. In the left breast in the 2:30 position 1A location, there is a smooth, ovoid well-circumscribed hypoechoic solid mass measuring 1 cm. This is located just beneath the skin in the subcutaneous fat. No internal vascularity is identified. There is no associated architectural distortion or other abnormality. This likely represents a benign fibroadenoma or complex cyst. IMPRESSION: BI-RADS category 3: Probably benign finding - short interval follow-up recommended. The patient's palpable lump in the right breast upper inner quadrant correlates to a benign lipoma. An incidental benign-appearing mass in the left breast 2:30 position likely reflects a fibroadenoma or complicated cyst. Follow-up ultrasound in 6 months is recommended to document stability. The results from this exam have been communicated to the patient. Overall assessment: Probably benign. CMM/mf Radiologist: BETSEY SANFORD MD Attending: BISI FRANCISCO Requesting: BISI FRANCISCO Requesting Requesting ID: [id number] Attending Attending ID: [id number] Completed Time: 11/21/2014 2:48 PM Dictated Time: 11/21/2014 3:47 PM Transcribed Time: 11/21/2014 7:07 PM Signed by: BETSEY SANFORD MD on 11/27/2014 07:41 AM Report To 1 ID: Report To 1 Name: , Report To 1 FAX: Report To 2 ID: Report To 2 Name: , Report To 2 FAX: Report To 3 ID: Report To 3 Name: , Report To 3 FAX: NextGen Order #: us Historical Provider MD THORNTON US PROCEDURES Final R esult * Diagnostic Mammogram Bilateral W Felipe (11/21/2014 12:00 AM CDT) Anatomical Region Laterality Modality Breast Bilateral Mammography 11/21/2014 12:2 0 PM CDT Narrative 11/27/2014 7:41 AM CDT DIGITAL BILATERAL DIAGNOSTIC MAMMOGRAM WITH CAD, BILATERAL BREAST ULTRASOUND: CLINICAL HISTORY: 44-year-old female who palpates a lump in the upper inner right breast, presents for baseline screening mammography. ?? Patient reports no family history of breast cancer. Three view bilateral digital mammography was performed, with tomosynthesis views obtained in the CC and MLO projections. ??Coned compression CC and lateral standard and tomosynthesis views of the right breast were also obtained. ??A skin marker has been placed over the area of palpable concern. There are scattered fibroglandular tissue densities. ??Normal intramammary lymph nodes are noted in the right axillary tail. ??In the left breast at approximately 2 o'clock, there is a subcutaneous smooth, ovoid circumscribed mass measuring approximately 7 mm. ?? Slight asymmetry in the right breast 9 o'clock position resolves with coned compression views. ??In the right breast upper inner quadrant, the skin marker appears to associate to a large lipoma. Ultrasound was performed. ??In the right breast at 2 o'clock 3B location, there is a lipoma measuring 2.4 x 3.8 x 1.4 cm, correlating to the mammographic findings and palpable mass. ??In the right lateral central breast where asymmetry was questioned on mammographic views, there is normal underlying mixed fibrofatty parenchyma. In the left breast in the 2:30 position 1A location, there is a smooth, ovoid well-circumscribed hypoechoic solid mass measuring 1 cm. ??This is located just beneath the skin in the subcutaneous fat. ?? No internal vascularity is identified. ??There is no associated architectural distortion or other abnormality. ??This likely represents a benign fibroadenoma or complex cyst. IMPRESSION: BI-RADS category 3: Probably benign finding - short interval follow-up recommended. The patient's palpable lump in the right breast upper inner quadrant correlates to a benign lipoma. ??An incidental benign-appearing mass in the left breast 2:30 position likely reflects a fibroadenoma or complicated cyst. ??Follow-up ultrasound in 6 months is recommended to document stability. The results from this exam have been communicated to the patient. Overall assessment: Probably benign. CMM/mf Radiologist: BETSEY SANFORD MD ?? Attending: ??EJRICHO CULVER M.D. Requesting: BISI FRANCISCO Requesting Fax: ?? Requesting ID: [id number] Attending Fax: ?? Attending ID: ?? [id number] Completed Time: ?? 11/21/2014 12:20 AM Dictated Time: ?11/21/2014 3:47 PM Transcribed Time: 11/21/2014 7:07 PM Signed by: ?JUVENAL CARUSO, BETSEY [place] ?? on 11/27/2014 07:41 AM Report To 1 ID: Report To 1 Name: , Report To 1 FAX: Report To 2 ID: Report To 2 Name: , Report To 2 FAX: Report To 3 ID: Report To 3 Name: , Report To 3 FAX: NextGen Order #: Procedure Note Provider, MD Miles - 07/26/2016 DIGITAL BILATERAL DIAGNOSTIC MAMMOGRAM WITH CAD, BILATERAL BREAST ULTRASOUND: CLINICAL HISTORY: 44-year-old female who palpates a lump in the upper inner right breast, presents for baseline screening mammography. Patient reports no family history of breast cancer. Three view bilateral digital mammography was performed, with tomosynthesis views obtained in the CC and MLO projections. Coned compression CC and lateral standard and tomosynthesis views of the right breast were also obtained. A skin marker has been placed over the area of palpable concern. There are scattered fibroglandular tissue densities. Normal intramammary lymph nodes are noted in the right axillary tail. In the left breast at approximately 2 o'clock, there is a subcutaneous smooth, ovoid circumscribed mass measuring approximately 7 mm. Slight asymmetry in the right breast 9 o'clock position resolves with coned compression views. In the right breast upper inner quadrant, the skin marker appears to associate to a large lipoma. Ultrasound was performed. In the right breast at 2 o'clock 3B location, there is a lipoma measuring 2.4 x 3.8 x 1.4 cm, correlating to the mammographic findings and palpable mass. In the right lateral central breast where asymmetry was questioned on mammographic views, there is normal underlying mixed fibrofatty parenchyma. In the left breast in the 2:30 position 1A location, there is a smooth, ovoid well-circumscribed hypoechoic solid mass measuring 1 cm. This is located just beneath the skin in the subcutaneous fat. No internal vascularity is identified. There is no associated architectural distortion or other abnormality. This likely represents a benign fibroadenoma or complex cyst. IMPRESSION: BI-RADS category 3: Probably benign finding - short interval follow-up recommended. The patient's palpable lump in the right breast upper inner quadrant correlates to a benign lipoma. An incidental benign-appearing mass in the left breast 2:30 position likely reflects a fibroadenoma or complicated cyst. Follow-up ultrasound in 6 months is recommended to document stability. The results from this exam have been communicated to the patient. Overall assessment: Probably benign. CMM/mf Radiologist: BETSEY SANFORD MD Attending: JERICHO CULVER M.D. Requesting: BISI FRANCISCO Requesting Requesting ID: [id number] Attending Attending ID: [id number] Completed Time: 11/21/2014 12:20 AM Dictated Time: 11/21/2014 3:47 PM Transcribed Time: 11/21/2014 7:07 PM Signed by: JUVENAL CARUSO, BETSEY [place] on 11/27/2014 07:41 AM Report To 1 ID: Report To 1 Name: , Report To 1 FAX: Report To 2 ID: Report To 2 Name: , Report To 2 FAX: Report To 3 ID: Report To 3 Name: , Report To 3 FAX: NextGen Order #: us Historical Provider MD THORNTON MAMMO PROCEDURES Joi l Result documented in this encounter Visit Diagnoses Diagnosis Other abnormal findings on radiological examination of breast Lipoma of other skin and subcutaneous tissue Lump or mass in breast documented in this encounter
--- OUTSIDE RECORDS SUMMARY | 2024-04-01 11:20 | XMS_ITS | Encounter Summary ---
Author Organization [facility] Address [address] [place] [address] Phone Care Team Providers Care Trash Hauler Name Role Phone Kevin Bowles MD Primary Care Provider [phone] Eric Crowder MD Unavailable [phone] Encounter Details Date Type Department Care Team (Late st Contact Info) Description 09/06/2018 Orders Only [facility] [address] [address] Christa Bueno PA [address] [place] [id number] Social History Tobacco Use Types Packs/Day Years Used Date Smoking Tobacco: Never Alcohol Use Standard Drinks/Week Comments Yes 0 (1 standard drink = 0.6 oz pur e alcohol) Comments Unknown Sex and Gender Information Value Date Recorded Sex Assigned at Not on file 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
--- OUTSIDE RECORDS SUMMARY | 2024-04-01 11:20 | XMS_ITS | Encounter Summary ---
Author Organization [facility] Address [address] [place] [id number] Phone Care Team Providers Care Care Management Associate Name Role Phone Kevin Bowles MD Primary Care Provider [phone] Eric Crowder MD Unavailable [phone] Encounter Details Date Type Department Care Team (Late st Contact Info) Description 06/04/2017 Documentation [place] [id number] [address] Eric Crowder MD [address] [place] [id number] Social History Tobacco Use Types Packs/Day Years Used Date Smoking Tobacco: Never Alcohol Use Standard Drinks/Week Comments Yes 0 (1 standard drink = 0.6 oz pur e alcohol) Comments Unknown Sex and Gender Information Value Date Recorded Sex Assigned at Not on file 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 I discussed with her adding MTX which she is open to although she wants to see if herjoint pain in her hands improve with the weather warming up as she has noticed her symptoms are worse in the cold. Will defer addition of MTX at this time although will reconsider next visit pending how she feels. Pt to call for worsened symptoms. documented in this encounter Plan of Treatment Not on file documented as of this encounter Visit Diagnoses Not on filedocumented in this encounter Care Teams Care Management Associate Relationship Specialty Start Date End Date Kevin Bowles MD [address] [facility] [address] [address] PCP - General 06/19/16 01/16/24 Eric Crowder MD [address] [facility] [address] [place] [address] Rheumatology 01/18/17 documented as of this encounter
--- OUTSIDE RECORDS SUMMARY | 2024-04-01 11:20 | XMS_ITS | Encounter Summary ---
Author Organization [facility] Address [address] [place] [address] Phone Care Team Providers Care Width Stripper Name Role Phone Kevin Bowles MD Primary Care Provider [phone] Eric Crowder MD Unavailable [phone] Reason for Visit * Reason Comments Arthritis Encounter Details Date Type Department Care Team (Latest Contact Info) Description 03/01/2019 11:15 AM BRAZER CRAWLER TORCH Office Visit [facility] [address] [place] [phone] Christa Bueon PA [address] [place] [id number] 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/HCC) (Primary Dx); buttermaker 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 use 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 Social History Tobacco Use Types Packs/Day Years Used Date Smoking Tobacco: Never Alcohol Use Standard Drinks/Week Comments Yes 0 (1 standard drink = 0.6 oz pur e alcohol) Comments Unknown Sex and Gender Information Value Date Recorded Sex Assigned at Not on file Legal Sex Female 9:01 PM BRAZER CRAWLER TORCH Gender Identity Not on file Sexual Orientation Not on file documented as of this encounter Last Filed Vital Signs Vital Sign Reading Time Taken Comments Blood Pressure 128/70 03/01/2019 11:20 AM BRA[facility]ER CRAWLER TORCH Pulse 81 03/01/2019 11:20 AM BRAZER CRAWLER TORCH Temperature - - Respiratory Rate - - Oxygen Saturation - - Inhaled Oxygen Concentration - - Weight 137 kg (302 lb) 03/01/2019 11:20 AM BRAZER CRAWLER TORCH Height 162.6 cm (5' 4 ) 03/01/2019 11:20 AM BRAZER CRAWLER TORCH Body Mass Index 51.84 03/01/2019 11:20 AM BRAZER CRAWLER TORCH documented in this encounter Ordered Prescriptions Prescription Sig Dispense Quantity Refills Last Filled Start Date End Date ondansetron (ZOFRAN) 4 mg tablet Take 1 tablet (4 mg total) by mouth every 8 (eight) hours as needed for nausea or vomiting 30 tablet 03/01/2019 0 hydroxychloroquine (PLAQUENIL) 200 mg tablet Take 1 tablet (200 mg total) by mouth 2 (two) times a day 60 tablet 2 03/01/2019 0 documented in this encounter Progress Notes * Christa Willis PA - 03/01/2019 11:15 AM CST Images from the original note were not included. Subjective/Objective Patient ID: Monica Buckner is a 48 y.o. female. Chief Complaint Arthritis HPI Returns for routine follow up. Reports recent sinus infection and was put on Augmentin and a medrol dose amanda. Joint symptoms remain stable. Notes occasional pain in her wrists but this is intermittent. Denies fevers, infections, rashes, mouth sores, cough, dyspnea, n/v. Joint pain today is 2/10. AM stiffness = few minutes Review of [...] appears well-developed and well-nourished. HENT: Head: Normocephalic. Nose: erythematous mucosa. Ears: Swollen bilateral TM. Eyes: Conjunctivae are normal. Pupils are equal, [...] normal. Cognition and memory are normal. Patient Global Assessment: 20 (mm) Provider Global Assessment: 20 (mm) CDAI: 7 Assessment/Plan Diagnoses and all orders for this [...] rate; Standing - CRP (acute phase); Standing prison current use 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 Assessment & Plan: Routine labs via standing order. Eye exam UTD. Orders: - Comprehensive metabolic panel; Standing - CBC with auto differential; Standing Other orders - hydroxychloroquine (PLAQUENIL) 200 mg tablet; Take 1 tablet (200 mg total) by mouth 2 (two) timesa day - ondansetron (ZOFRAN) 4 mg tablet; Take 1 tablet (4 mg total) by mouth every 8 (eight) hours as needed for nausea or vomiting Cosigned by Eric Crowder MD at 03/02/2019 12:05 PM BRAZER CRAWLER TORCH ER CRAWLER TORCH ER CRAWLER TORCH documented in this encounter Miscellaneous Notes * Assessment & Plan Note - Christa Willis PA - 03/01/2019 12:18 PM CSTAssociated Problem(s): prison current use 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 Routine labs via standing order. Eye exam UTD. ER CRAWLER TORCH * Assessment & Plan Note - Christa Willis PA - 03/01/2019 12:17 PM CSTAssociated Problem(s): 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/HCC) ([facility]) Low cdai. No obvious synovitis with some [...] up in 3 months. Sooner if needed. ER CRAWLER TORCH documented in this encounter Plan of Treatment Scheduled Orders Name Type Priority Associated Diagnoses Orde r Schedule Comprehensive metabolic panel Lab Routine 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/HCC) prison current use 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 [id number] for 10 Occurrences starting 03/01/2019 until 03/01/2020, 1 completed CBC with auto differential Lab Routine 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/HCC) buttermaker current use 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 [id number] for 10 Occurrences starting 03/01/2019 until 03/01/2020 Erythrocyte sedimentation rate Lab Routine 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/HCC) [id number] for 10 Occurrences starting 03/01/2019 until 03/01/2020 CRP (acute phase) Lab Routine 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/HCC) [id number] for 10 Occurrences starting 03/01/2019 until 03/01/2020, 3 completed documented as of this encounter Procedures Procedure Name Priority Date/Time Associated Diagnosis Comments CBC WITH AUTO DIFFERENTIAL Routine 11/24/2019 2:45 PM CDT ERYTHROCYTE SEDIMENTATION RATE Routine 11/24/2019 2:45 PM CDT CRP (ACUTE PHASE) Routine 11/24/2019 2:4 5 PM CDT COMPREHENSIVE METABOLIC PANEL Routine 11/24/2019 2:45 PM CDT 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/HCC) buttermaker current use 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 CBC WITH AUTO DIFFERENTIAL Routine 08/23/2019 3:04 PM CDT ERYTHROCYTE SEDIMENTATION RATE Routine 08/23/2019 3:04 PM CDT CRP (ACUTE PHASE) Routine 08/23/2019 3:0 4 PM CDT 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/HCC) COMPREHENSIVE METABOLIC PANEL Routine 08/23/2019 3:04 PM CDT CBC WITH AUTO DIFFERENTIAL Routine 05/29/2019 2:01 PM CDT ERYTHROCYTE SEDIMENTATION RATE Routine 05/29/2019 2:01 PM CDT CRP (ACUTE PHASE) Routine 05/29/2019 2:0 1 PM CDT 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/HCC) COMPREHENSIVE METABOLIC PANEL Routine 05/29/2019 2:01 PM CDT CBC WITH AUTO DIFFERENTIAL Routine 03/01/2019 11:41 AM BRAZER CRAWLER TORCH ERYTHROCYTE SEDIMENTATION RATE Routine 03/01/2019 11:41 AM BRAZER CRAWLER TORCH CRP (ACUTE PHASE) Routine 03/01/2019 11: 41 AM BRAZER CRAWLER TORCH 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/HCC) COMPREHENSIVE METABOLIC PANEL Routine 03/01/2019 11:41 AM BRAZER CRAWLER TORCH documented in this encounter Results * (ABNORMAL) CRP (acute phase) (11/24/2019 2:45 PM CDT) C-RP 9.6(H) <8.0 mg/L [facility] 11/24/2019 2:45 PM CDT 11/24/2019 2:46 PM CDT Christa JAY LAB BLOOD ORDERABLES Final Result [facility] [address], [place] [address] * (ABNORMAL) CBC with auto differential (11/24/2019 2:45 PM CDT) WBC 5.4 3.8 - 10.8 Thousand/u L [facility] RBC, POC 4.34 3.80 - 5.10 Million/uL [facility] Hgb 13.5 11.7 - 15.5 g/dL [facility] Hct 39.2 35.0 - 45.0 % [facility] MCV 90.3 80.0 - 100.0 fL [facility] MCH 31.1 27.0 - 33.0 pg [facility] MCHC 34.4 32.0 - 36.0 g/dL [facility] Rdw 15.2(H) 11.0 - 15.0 % [facility] Platelets 247 140 - 400 Thousand/u L [facility] MPV 9.4 7.5 - 12.5 fL [facility] Neutrophils, abs 2,684 1,500 - 7,800 cells/uL [facility] Lymphocytes, abs 2,036 850 - 3,900 cells/uL [facility] Monocyte abs 508 200 - 950 cells/uL [facility] Eosinophils, abs 151 15 - 500 cells/uL [facility] Basophils, abs 22 0 - 200 cells/uL [facility] Neutrophils 49.7 % [facility] Lymphocyte pct 37.7 % [facility] Monocytes 9.4 % [facility] Eosinophils 2.8 % [facility] Basophils 0.4 % [facility] 11/24/2019 2:45 PM CDT 11/24/2019 2:46 PM CDT Christa JAY LAB BLOOD ORDERABLES Final Result [facility] [address] [place] [address] * Erythrocyte sedimentation rate (11/24/2019 2:45 PM CDT) Erythrocyte sedimentation rate 19 < OR = 20 mm/h [facility] 11/24/2019 2:45 PM CDT 11/24/2019 2:46 PM CDT Christa JAY LAB BLOOD ORDERABLES Final Result [facility] [address] [facility] [place] [address] * (ABNORMAL) Comprehensive metabolic panel (11/24/2019 2:45 PM CDT) Pathologist [facility] Glucose 103(H) 65 - 99 mg/dL [facility] [place] Comment: ? Fasting reference interval For someone without known diabetes, a glucose value between 100 and 125 mg/dL is consistent with prediabetes and should be confirmed with a follow-up test. BUN 9 7 - 25 mg/dL [facility] [place] Creatinine 0.74 0.50 - 1.10 mg/dL [facility] [place] eGFR NON-AFR. MAURITIAN 95 > OR = 60 mL/min/1. 73m2 [facility] [place] EGFR 110 > OR = 60 mL/min/1. 73m2 [facility] [place] BUN/creat ratio NOT APPLICABLE 6 - 22 (calc) [facility] [place] Sodium 139 135 - 146 mmol/L [facility] [place] Potassium, pl 4.2 3.5 - 5.3 mmol/L [facility] [place] Chloride 104 98 - 110 mmol/L [facility] [place] CO2 29 20 - 32 mmol/L [facility] [place] Calcium 9.3 8.6 - 10.2 mg/dL [facility] [place] Protein, sr 7.1 6.1 - 8.1 g/dL [facility] [place] Albumin 4.4 3.6 - 5.1 g/dL [facility] [place] GLOBULIN 2.7 1.9 - 3.7 g/dL (calc) [facility] [place] Alb/glob ratio 1.6 1.0 - 2.5 (calc) [facility] [place] Bilirubin, total 0.6 0.2 - 1.2 mg/dL [facility] [place] Alk phos 66 31 - 125 U/L [facility] [place] AST 19 10 - 35 U/L [facility] [place] ALT (SGPT) 23 6 - 29 U/L [facility] [place] Blood specimen (specimen) 11/24/2019 2:45 PM CDT 11/24/2019 2:46 PM CDT us Christa JAY LAB BLOOD ORDERABLES Final Result [facility] [address] [place] [address] [address] * CBC with auto differential (08/23/2019 3:04 PM CDT) WBC 5.8 3.8 - 10.8 Thousand/u L [facility] RBC, POC 4.41 3.80 - 5.10 Million/uL [facility] Hgb 13.4 11.7 - 15.5 g/dL [facility] Hct 39.3 35.0 - 45.0 % [facility] MCV 89.1 80.0 - 100.0 fL [facility] MCH 30.4 27.0 - 33.0 pg [facility] MCHC 34.1 32.0 - 36.0 g/dL [facility] Rdw 14.4 11.0 - 15.0 % [facility] Platelets 219 140 - 400 Thousand/u L [facility] MPV 9.1 7.5 - 12.5 fL [facility] Neutrophils, abs 2,865 1,500 - 7,800 cells/uL [facility] Lymphocytes, abs 2,117 850 - 3,900 cells/uL [facility] Monocyte abs 638 200 - 950 cells/uL [facility] Eosinophils, abs 151 15 - 500 cells/uL [facility] Basophils, abs 29 0 - 200 cells/uL [facility] Neutrophils 49.4 % [facility] Lymphocyte pct 36.5 % [facility] Monocytes 11.0 % [facility] Eosinophils 2.6 % [facility] Basophils 0.5 % [facility] 08/23/2019 3:04 PM CDT 08/23/2019 3:05 PM CDT Christa JAY LAB BLOOD ORDERABLES Final Result Performing Organization Address [facility] Co de Phone Number [facility] [address] [place] [address] * Erythrocyte sedimentation rate (08/23/2019 3:04 PM CDT) Pathologist [facility] Erythrocyte sedimentation rate 14 < OR = 20 mm/h [facility] 08/23/2019 3:04 PM CDT 08/23/2019 3:05 PM CDT Christa JAY LAB BLOOD ORDERABLES Final Result Performing Organization Address [facility] de Phone Number [facility] [address] [place] [address] * (ABNORMAL) Comprehensive metabolic panel (08/23/2019 3:04 PM CDT) Glucose 112(H) 65 - 99 mg/dL [facility] Comment: ? Fasting reference interval For someone without known diabetes, a glucose value between 100 and 125 mg/dL is consistent with prediabetes and should be confirmed with a follow-up test. BUN 6(L) 7 - 25 mg/dL [facility] Creatinine 0.67 0.50 - 1.10 mg/dL [facility] eGFR NON-AFR. MAURITIAN 103 > OR = 60 mL/min/1.7 3m2 [facility] EGFR 120 > OR = 60 mL/min/1.7 3m2 [facility] BUN/creat ratio 9 6 - 22 (calc) [facility] Sodium 141 135 - 146 mmol/L [facility] Potassium, pl 3.9 3.5 - 5.3 mmol/L [facility] Chloride 105 98 - 110 mmol/L [facility] CO2 29 20 - 32 mmol/L [facility] Calcium 9.2 8.6 - 10.2 mg/dL [facility] Protein, sr 6.8 6.1 - 8.1 g/dL [facility] Albumin 4.0 3.6 - 5.1 g/dL [facility] GLOBULIN 2.8 1.9 - 3.7 g/dL (calc) [facility] Alb/glob ratio 1.4 1.0 - 2.5 (calc) [facility] Bilirubin, total 0.4 0.2 - 1.2 mg/dL [facility] Alk phos 75 31 - 125 U/L [facility] AST 29 10 - 35 U/L [facility] ALT (SGPT) 58(H) 6 - 29 U/L [facility] 08/23/2019 3:04 PM CDT 08/23/2019 3:05 PM CDT us Christa JAY LAB BLOOD ORDERABLES Final Result Performing Organization Address City/[facility]/ZIP Co de Phone Number [facility] [address] [place] [address] * (ABNORMAL) CRP (acute phase) (08/23/2019 3:04 PM CDT) C-RP 14.5(H) <8.0 mg/L [facility] Blood specimen (specimen) 08/23/2019 3:04 PM CDT 08/23/2019 3:05 PM CDT us Christa JAY LAB BLOOD ORDERABLES Final Result [facility] [address] [place] [address] [address] * CBC with auto differential (05/29/2019 2:01 PM CDT) WBC 4.9 3.8 - 10.8 Thousand/u L [facility] [place] RBC, POC 4.47 3.80 - 5.10 Million/uL [facility] [place] Hgb 13.1 11.7 - 15.5 g/dL [facility] [place] Hct 39.6 35.0 - 45.0 % [facility] [place] MCV 88.6 80.0 - 100.0 fL [facility] [place] MCH 29.3 27.0 - 33.0 pg [facility] [place] MCHC 33.1 32.0 - 36.0 g/dL [facility] [place] Rdw 14.3 11.0 - 15.0 % [facility] [place] Platelets 243 140 - 400 Thousand/u L [facility] [place] MPV 9.3 7.5 - 12.5 fL [facility] [place] Neutrophils, abs 2,293 1,500 - 7,800 cells/uL [facility] [place] Lymphocytes, abs 1,945 850 - 3,900 cells/uL [facility] [place] Monocyte abs 495 200 - 950 cells/uL [facility] [place] Eosinophils, abs 157 15 - 500 cells/uL [facility] [place] Basophils, abs 10 0 - 200 cells/uL [facility] [place] Neutrophils 46.8 % [facility] [place] Lymphocyte pct 39.7 % [facility] [place] Monocytes 10.1 % [facility] [place] Eosinophils 3.2 % [facility] [place] Basophils 0.2 % [facility] [place] 05/29/2019 2:01 PM CDT 05/29/2019 2:02 PM CDT Narrative Resulting Agency Comment Performing Organization Information: ?Site ID: [place] ?Name: Hussein Krishnamurthy ?Address: [address] [place] [address] [address] ?Director: Todd Corrigan D.O., MPH Christa JAY LAB BLOOD ORDERABLES Final Result [facility] [place] * Erythrocyte sedimentation rate (05/29/2019 2:01 PM CDT) Erythrocyte sedimentation rate 17 < OR = 20 mm/h [facility] 05/29/2019 2:01 PM CDT 05/29/2019 2:02 PM CDT Narrative Resulting Agency Comment Performing Organization Information: ?Site ID: [place] ?Name: [facility] ?Address: [address] [address] [address] ?Director: Todd Corrigan D.O., MPH Christa JAY LAB BLOOD ORDERABLES Final Result [facility] [place] * (ABNORMAL) Comprehensive metabolic panel (05/29/2019 2:01 PM CDT) Glucose 101(H) 65 - 99 mg/dL [facility] Comment: ? Fasting reference interval For someone without known diabetes, a glucose value between 100 and 125 mg/dL is consistent with prediabetes and should be confirmed with a follow-up test. BUN 9 7 - 25 mg/dL [facility] [place] Creatinine 0.70 0.50 - 1.10 mg/dL [facility] [place] eGFR NON-AFR. MAURITIAN 102 > OR = 60 mL/min/1. 73m2 [facility] [place] EGFR 119 > OR = 60 mL/min/1. 73m2 [facility] [place] BUN/creat ratio NOT APPLICABLE 6 - 22 (calc) [facility] [place] Sodium 140 135 - 146 mmol/L [facility] [place] Potassium, pl 4.1 3.5 - 5.3 mmol/L [facility] [place] Chloride 104 98 - 110 mmol/L [facility] [place] CO2 29 20 - 32 mmol/L [facility] [place] Calcium 9.6 8.6 - 10.2 mg/dL [facility] [place] Protein, sr 7.1 6.1 - 8.1 g/dL [facility] [place] Albumin 4.5 3.6 - 5.1 g/dL [facility] [place] GLOBULIN 2.6 1.9 - 3.7 g/dL (calc) [facility] [place] Alb/glob ratio 1.7 1.0 - 2.5 (calc) [facility] [place] Bilirubin, total 0.6 0.2 - 1.2 mg/dL [facility] [place] Alk phos 77 31 - 125 U/L [facility] [place] AST 19 10 - 35 U/L [facility] [place] ALT (SGPT) 24 6 - 29 U/L [facility] [place] 05/29/2019 2:01 PM CDT 05/29/2019 2:02 PM CDT Narrative Resulting Agency Comment Performing Organization Information: ?Site ID: [place] ?Name: Hussein Krishnamurthy ?Address: [facility] [place] [address] ?Director: Todd Corrigan D.O., MPH Christa JAY LAB BLOOD ORDERABLES Final Result Performing Organization Address City/[facility]/ZIP Co de Phone Number [place] * (ABNORMAL) CRP (acute phase) (05/29/2019 2:01 PM CDT) C-RP 11.6(H) <8.0 mg/L [facility] [place] Blood specimen (specimen) 05/29/2019 2:01 PM CDT 05/29/2019 2:02 PM CDT Narrative Resulting Agency Comment Performing Organization Information: ?Site ID: [place] ?Name: Hussein Krishnamurthy ?Address: [facility] [place] [address] ?Director: Todd Corrigan D.O., MPH Christa JAY LAB BLOOD ORDERABLES Final Result Performing Organization Address City/[facility] Co de Phone Number [place] * (ABNORMAL) CBC with auto differential (03/01/2019 11:41 AM BRAZER CRAWLER TORCH) Pathologist [facility] WBC 6.3 3.8 - 10.8 Thousand/u L [facility] [place] RBC, POC 4.16 3.80 - 5.10 Million/uL [facility] [place] Hgb 12.6 11.7 - 15.5 g/dL [facility] [place] Hct 37.0 35.0 - 45.0 % [facility] [place] MCV 88.9 80.0 - 100.0 fL [facility] [place] MCH 30.3 27.0 - 33.0 pg [facility] [place] MCHC 34.1 32.0 - 36.0 g/dL [facility] [place] Rdw 15.4(H) 11.0 - 15.0 % [facility] [place] Platelets 232 140 - 400 Thousand/u L [facility] [place] MPV 9.1 7.5 - 12.5 fL [facility] [place] Neutrophils, abs 3,408 1,500 - 7,800 cells/uL [facility] [place] Lymphocytes, abs 2,142 850 - 3,900 cells/uL [facility] [place] Monocyte abs 580 200 - 950 cells/uL [facility] [place] Eosinophils, abs 158 15 - 500 cells/uL [facility] [place] Basophils, abs 13 0 - 200 cells/uL [facility] [place] Neutrophils 54.1 % [facility] [place] Lymphocyte pct 34.0 % [facility] [place] Monocytes 9.2 % [facility] [place] Eosinophils 2.5 % [facility] [place] Basophils 0.2 % [facility] [place] 03/01/2019 11:4 1 AM BRA[facility]ER CRAWLER TORCH 03/01/2019 11:43 AM BRAZER CRAWLER TORCH Narrative Resulting Agency Comment Performing Organization Information: ?Site ID: ?[facility] ?Address: [facility] [place] [address] ?Director: Dilia Breaux Christa JAY LAB BLOOD ORDERABLES Final Result [facility] - [place] * (ABNORMAL) Erythrocyte sedimentation rate (03/01/2019 11:41 AM BRAZER CRAWLER TORCH) Erythrocyte sedimentation rate 24(H) < OR = 20 mm/h [facility] - 03/01/2019 11:4 1 AM BRAZER CRAWLER TORCH 03/01/2019 11:43 AM BRAZER CRAWLER TORCH Narrative Resulting Agency Comment Performing Organization Information: ?Site ID: ?[facility]: [facility] ?Address: [facility] [place] [address] ?Director: Dilia Breaux Christa JAY LAB BLOOD ORDERABLES Final Result [facility] - [place]aley LynchCARMEN * (ABNORMAL) Comprehensive metabolic panel (03/01/2019 11:41 AM BRAZER CRAWLER TORCH) Glucose 120(H) 65 - 99 mg/dL [facility] [place] Comment: ? Fasting reference interval For someone without known diabetes, a glucose value between 100 and 125 mg/dL is consistent with prediabetes and should be confirmed with a follow-up test. BUN 12 7 - 25 mg/dL [facility] [place] Creatinine 0.68 0.50 - 1.10 mg/dL [facility] [place] eGFR NON-AFR. MAURITIAN 103 > OR = 60 mL/min/1. 73m2 [facility] [place] EGFR 120 > OR = 60 mL/min/1. 73m2 [facility] [place] BUN/creat ratio NOT APPLICABLE 6 - 22 (calc) [facility] [place] Sodium 140 135 - 146 mmol/L [facility] [place] Potassium, pl 3.8 3.5 - 5.3 mmol/L [facility] [place] Chloride 108 98 - 110 mmol/L [facility] [place] CO2 28 20 - 32 mmol/L [facility] [place] Calcium 9.5 8.6 - 10.2 mg/dL [facility] [place] Protein, sr 6.7 6.1 - 8.1 g/dL [facility] [place] Albumin 4.2 3.6 - 5.1 g/dL [facility] [place] GLOBULIN 2.5 1.9 - 3.7 g/dL (calc) [facility] [place] Alb/glob ratio 1.7 1.0 - 2.5 (calc) [facility] [place] Bilirubin, total 0.4 0.2 - 1.2 mg/dL [facility] [place] Alk phos 85 33 - 115 U/L [facility] [place] AST 25 10 - 35 U/L [facility] [place] ALT (SGPT) 57(H) 6 - 29 U/L [facility] [place] 03/01/2019 11:4 1 AM BRA[facility]ER CRAWLER TORCH 03/01/2019 11:43 AM BRAZER CRAWLER TORCH Narrative Resulting Agency Comment Performing Organization Information: ?Site ID: [place] ?Name: Hussein Krishnamurthy ?Address: [facility] [place] [address] ?Director: Todd Corrigan D.O. MPH Christa JAY LAB BLOOD ORDERABLES Final Result Performing Organization Address City/[facility] Co de Phone Number [place] * (ABNORMAL) CRP (acute phase) (03/01/2019 11:41 AM BRAZER CRAWLER TORCH) C-RP 16.2(H) <8.0 mg/L [facility] Blood specimen (specimen) 03/01/2019 11:41 AM BRAZER CRAWLER TORCH 03/01/2019 11:43 AM BRAZER CRAWLER TORCH Narrative Resulting Agency Comment Performing Organization Information: ?Site ID: [place] ?Name: Hussein Krishnamurthy ?Address: [facility] [place] [address] ?Director: Todd Corrigan D.O., MPH Christa JAY LAB BLOOD ORDERABLES Final Result Performing Organization Address City/[facility] Co de Phone Number [place] documented in this encounter Visit Diagnoses Diagnosis 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 Unspecified inflammatory polyarthropathy buttermaker current use 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 documented in this encounter Discontinued Medications Medication Sig Discontinue Reason Start Date End Da te hydroxychloroquine (PLAQUENIL) 200 mg tablet Take 1 tablet (200 mg total) by mouth 2 (two) times a day Reorder 02/09/2019 03/01/2019 ondansetron (ZOFRAN) 4 mg tablet Take 1 tablet (4 mg total) by mouth every 8 (eight) hours as needed for nausea or vomiting Reorder 12/30/2018 03/01/2019 documented as of this encounter Care Teams Width Stripper Relationship Specialty Start Date End Date Kevin Bowles MD [facility] NAM[facility] [address] [place] [address] PCP - General 06/19/16 01/16/24 Eric Crowder MD [address] [facility] [address] [place] [address] Rheumatology 01/18/17 documented as of this encounter
--- OUTSIDE RECORDS SUMMARY | 2024-04-01 11:20 | XMS_ITS | Encounter Summary ---
Author Organization [facility] Address [address] [place] [address] Phone Care Team Providers Care Scouts Name Role Phone Kevin Bowles MD Primary Care Provider [phone] Eric Crowder MD Unavailable [phone] Reason for Visit * Reason Comments Arthritis Encounter Details Date Type Department Care Team (Latest Contact Info) Description 08/29/2018 1:00 PM CDT Office Visit [facility] [address] [address] Christa Bueno PA [facility] [place] [place] [address] 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/HCC) (Primary Dx); 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 Social History Tobacco Use Types Packs/Day Years Used Date Smoking Tobacco: Never Alcohol Use Standard Drinks/Week Comments Yes 0 (1 standard drink = 0.6 oz pur e alcohol) Comments Unknown Sex and Gender Information Value Date Recorded Sex Assigned at Not on file Legal Sex Female 9: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 Gender Identity Not on file Sexual Orientation Not on file documented as of this encounter Last Filed Vital Signs Vital Sign Reading Time Taken Comments Blood Pressure 128/76 08/29/2018 1:05 PM CDT Pulse 84 08/29/2018 1:05 PM CDT Temperature - - Respiratory Rate - - Oxygen Saturation - - Inhaled Oxygen Concentration - - Weight 137 kg (302 lb) 08/29/2018 1:05 PM CDT Height - - Body Mass Index 51.84 02/28/2018 11:12 AM RAISED PRINTER documented in this encounter Ordered Prescriptions Prescription Sig Dispense Quantity Refills Last Filled Start Date End Date ondansetron (ZOFRAN) 4 mg tablet Take 1 tablet (4 mg total) by mouth every 8 (eight) hours as needed for nausea or vomiting 30 tablet 08/29/2018 9 documented in this encounter Progress Notes * Christa Willis PA - 08/29/2018 1:00 PM CDT Images from the original note were not included. Subjective/Objective Patient ID: Monica Buckner is a 48 y.o. female. Chief Complaint Arthritis HPI Returns for routine follow up. Needs refill on zofran. Having occasional pain in right ulnar wrist when picking up objects. Notes some pain in the PIPs. Feet were painful but has resolved. Denies fevers, infections, rashes, mouth sores, cough, dyspnea, n/v. Joint pain today is 2 /10. AM stiffness = denies Review of Systems Constitutional: Negative for fatigue. [...] no wheezes. no rales. Musculoskeletal: See cdai. Rt ulnar wrist ttp. Neurological: alert and oriented to person, place, and time. Skin: Skin is warm and dry. No rash noted. Psychiatric: normal mood and affect. speech is normal and behavior is normal. Cognition and memory are normal. Assessment/Plan Diagnoses and all orders for this visit: 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/HCC) (Primary) Assessment & Plan: Low cdai. Notes recent flare of pain [...] up in 3 months. Sooner if needed. [facility] current use 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 Assessment & Plan: Routine labs via standing order. Eye exam UTD. Other orders - ondansetron (ZOFRAN) 4 mg tablet; Take 1 tablet (4 mg total) by mouth every 8 (eight) hours as needed for nausea or vomiting Cosigned by Eric Crowder MD at 08/29/2018 4:48 PM CDT documented in this encounter Miscellaneous Notes * Assessment & Plan Note - Christa Willis PA - 08/29/2018 1:24 PM CDTAssociated Problem(s): [facility] current use 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 Routine labs via standing order. Eye exam UTD. * Assessment & Plan Note - Christa Willis PA - 08/29/2018 1:21 PM CDTAssociated Problem(s): 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/HCC) ([facility]) Low cdai. Notes recent flare of pain [...] Da te ondansetron (ZOFRAN) 4 mg tablet TAKE ONE TABLET BY MOUTH EVERY 8 HOURS NEEDED FOR NAUSEA OR VOMITING Reorder 06/22/2018 08/29/2018 documented as of this encounter Care Teams Scouts Relationship Specialty Start Date End Date Kevin Bowles MD [address] [place] [address] [address] [place] [address] PCP - General 06/19/16 01/16/24 Eric Crowder MD [address] [place] [address] Rheumatology 01/18/17 documented as of this encounter
--- OUTSIDE RECORDS SUMMARY | 2024-04-01 11:20 | XMS_ITS | Encounter Summary ---
Author Organization [facility] Address [address] [place] [address] Phone Care Team Providers Care Lye Bath Operator Name Role Phone Kevin Bowles MD Primary Care Provider [phone] Eric Crowder MD Unavailable Reason for Visit * Reason Comments Arthritis Encounter Details Date Type Department Care Team (Latest Contact Info) Description 11/29/2018 10:15 AM CDT Office Visit [facility] [address] [place] [address] Christa Bueno PA [address] [place] [id number] 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/HCC) (Primary Dx); [facility] current use 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 Social History Tobacco Use Types Packs/Day Years Used Date Smoking Tobacco: Never Alcohol Use Standard Drinks/Week Comments Yes 0 (1 standard drink = 0.6 oz pur e alcohol) Comments Unknown Sex and Gender Information Value Date Recorded Sex Assigned at Not on file 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 Gender Identity Not on file Sexual Orientation Not on file documented as of this encounter Last Filed Vital Signs Vital Sign Reading Time Taken Comments Blood Pressure 126/80 11/29/2018 10:23 AM CDT Pulse 78 11/29/2018 10:23 AM CDT Temperature - - Respiratory Rate - - Oxygen Saturation - - Inhaled Oxygen Concentration - - Weight 137.9 kg (304 lb) 11/29/2018 10:23 AM CDT Height 162.6 cm (5' 4 ) 11/29/2018 10:23 AM CDT Body Mass Index 52.18 11/29/2018 10:23 AM CDT documented in this encounter Ordered Prescriptions Prescription Sig Dispense Quantity Refills Last Filled Start Date End Date sulfaSALAzine EN (AZULFIDINE EN) 500 mg EC tablet Take 3 tabs PO bid 180 tablet 2 11/29/2018 9 methotrexate 2.5 mg tabletIndications: Rheumatoid Arthritis Take 6 Tablets by mouth once weekly 24 tablet 2 11/29/2018 9 hydroxychloroquine (PLAQUENIL) 200 mg tablet Take 1 tablet (200 mg total) by mouth 2 (two) times a day 60 tablet 2 11/29/2018 9 folic acid (FOLVITE) 1 mg tablet Take 1 tablet (1 mg total) by mouth daily Take one tab daily 30 tablet 5 11/29/2018 0 documented in this encounter Progress Notes * Christa Willis PA - 11/29/2018 10:15 AM CDT Images from the original note were not included. Subjective/Objective Patient ID: Monica Buckner is a 48 y.o. female. Chief Complaint Arthritis HPI Returns for routine follow up. Switched to restasis from xiidra. Denies much benefit. Still having occasional pain in her wrists, fingers, and feet. Today is not too bad. Refill medications. MTX 6 tabs. Denies fevers, infections, rashes, mouth sores, cough, dyspnea, n/v. Joint pain today is 1/10. AM stiffness = 20-30 minutes Review of Systems Constitutional: Negative for [...] no wheezes. no rales. Musculoskeletal: See cdai. Lymphadenopathy: no cervical adenopathy. Neurological: alert and oriented to person, place, and time. Skin: Skin is warm and dry. No rash noted. Psychiatric: normal mood and affect. speech is normal and behavior is normal. Cognition and memory are normal. Assessment/Plan Diagnoses and all orders for this visit: 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/HCC) (Primary) Assessment & Plan: Low cdai. Notes intermittent increases in pain [...] up in 3 months. 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 Eye exam UTD. Other orders - folic acid (FOLVITE) 1 mg tablet; Take 1 tablet (1 mg total) by mouth daily Take one tab daily - hydroxychloroquine (PLAQUENIL) 200 mg tablet; Take 1 tablet (200 mg total) by mouth 2 (two) timesa day - methotrexate 2.5 mg tablet; Take 6 Tablets by mouth once weekly - sulfaSALAzine EN (AZULFIDINE EN) 500 mg EC tablet; Take 3 tabs PO bid Cosigned by Eric Crowder MD at 11/29/2018 5:08 PM CDT documented in this encounter Miscellaneous Notes * Assessment & Plan Note - Christa Willis PA - 11/29/2018 12:56 PM CDTAssociated Problem(s): 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/HCC) ([facility]) Low cdai. 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 Eye exam UTD. documented in this encounter Plan of Treatment Not on file documented as of this encounter Visit Diagnoses Diagnosis 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/HCC) ([facility])- Primary Unspecified inflammatory polyarthropathy [facility] current use 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 documented in this encounter Discontinued Medications Medication Sig Discontinue Reason Start Date End Da te lifitegrast (XIIDRA) 5 % dropperette instill 1 drop by ophthalmic route 2 times every day into both eyes approximately 12 hours apart Therapy completed 06/30/2016 11/29/2018 folic acid (FOLVITE) 1 mg tablet Take 1 tablet (1 mg total) by mouth daily Take one tab daily Reorder 05/31/2018 11/29/2018 hydroxychloroquine (PLAQUENIL) 200 mg tablet Take 1 tablet (200 mg total) by mouth 2 (two) times a day Reorder 09/08/2018 11/29/2018 methotrexate 2.5 mg tabletIndications:Rhe umatoid Arthritis Take 6 Tablets by mouth once weekly Reorder 09/08/2018 11/29/2018 sulfaSALAzine EN (AZULFIDINE EN) 500 mg EC tablet Take 3 tabs PO bid Reorder 09/08/2018 11/29/2018 documented as of this encounter Care Teams Lye Bath Operator Relationship Specialty Start Date End Date Kevin Bowles MD [address] [facility] [address] [place] [address] PCP - General 06/19/16 01/16/24 Eric Crowder MD [address] [facility] [address] [place] [address] Rheumatology 01/18/17 documented as of this encounter
--- OUTSIDE RECORDS SUMMARY | 2024-04-01 11:20 | XMS_ITS | Encounter Summary ---
Author Organization [facility] Address [address] [place] [address] Phone Care Team Providers Care Rod Filler Name Role Phone Kevin Bowles MD Primary Care Provider [phone] Encounter Details Date Type Department Care Team (Late st Contact Info) Description 12/18/2016 Orders Only [address] [address] Eric Crowder MD [address] [address] Social History Tobacco Use Types Packs/Day Years Used Date Smoking Tobacco: Never Alcohol Use Standard Drinks/Week Comments Yes 0 (1 standard drink = 0.6 oz pur e alcohol) Comments Unknown Sex and Gender Information Value Date Recorded Sex Assigned at Not on file 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 Gender Identity Not on file Sexual Orientation Not on file documented as of this encounter Plan of Treatment Not on file documented as of this encounter Procedures Procedure Name Priority Date/Time Associated Diagnosis Comments CBC WITH AUTO DIFFERENTIAL Routine 12/18/2016 3:08 PM CDT ERYTHROCYTE SEDIMENTATION RATE Routine 12/18/2016 3:08 PM CDT CRP (ACUTE PHASE) Routine 12/18/2016 3:0 8 PM CDT COMPREHENSIVE METABOLIC PANEL Routine 12/18/2016 3:08 PM CDT documented in this encounter Results * CRP (acute phase) (12/18/2016 3:08 PM CDT) [facility] C-RP 5.2 <8.0 mg/L [facility] Comment: Please note recent reference range and units of measure changes 12/18/2016 3:08 PM CDT 12/18/2016 3:08 PM CDT Narrative Resulting Agency Comment Performing Organization Information: ?Site ID: [place] ?Name: [facility] [place] ?Address: [address] [place] [address] [place] [address] ?Director: Todd Corrigan D.O., MPH Eric Crowder MD LAB BLOOD ORDERABLES Fin al Result [facility] [place], [place] * (ABNORMAL) CBC with auto differential (12/18/2016 3:08 PM CDT) [facility] WBC 4.1 3.8 - 10.8 Thousand/ uL [facility] [place] RBC, POC 4.23 3.80 - 5.10 Million/u L [facility] [place] Hgb 10.6(L) 11.7 - 15.5 g/dL [facility] Hct 32.6(L) 35.0 - 45.0 % [facility] [place] MCV 77.1(L) 80.0 - 100.0 fL [facility] [place] MCH 25.1(L) 27.0 - 33.0 pg [facility] [place] MCHC 32.5 32.0 - 36.0 g/dL [facility] Rdw 17.4(H) 11.0 - 15.0 % [facility] [place] Platelets 279 140 - 400 Thousand/ uL [facility] [place] MPV 9.4 7.5 - 12.5 fL [facility] [place] Neutrophils, abs 1,853 1,500 - 7,800 cells/uL [facility] [place] Neutrophil bands, abs CANCELED 0 - 750 cells/uL [facility] [place] Comment:Result canceled by t he ancillary Metamyelocytes, abs CANCELED 0 cells/uL [facility] [place] Comment:Result canceled by t he ancillary Absolute Myelocytes CANCELED 0 cells/uL [facility] [place] Comment:Result canceled by t he ancillary Promyelocytes, abs CANCELED 0 cells/uL [facility] [place] Comment:Result canceled by t he ancillary Lymphocytes, abs 1,689 850 - 3,900 cells/uL [facility] [place] Monocyte abs 431 200 - 950 cells/uL [facility] [place] Eosinophils, abs 119 15 - 500 cells/uL [facility] [place] Basophils, abs 8 0 - 200 cells/uL [facility] [place] Blast, cell CANCELED 0 cells/uL [facility] [place] Comment:Result canceled by t he ancillary NRBC abs CANCELED 0 cells/uL [facility] [place] Comment:Result canceled by t he ancillary Neutrophils 45.2 % [facility] [place] Neutrophilic bands [...] canceled by t he ancillary Lymphocyte pct 41.2 % [facility] [place] Reactive lymph CANCELED 0 - 10 % [facility] [place] Comment:Result canceled by t he ancillary Monocytes 10.5 % [facility] [place] Eosinophils 2.9 % [facility] [place] Basophils 0.2 % [facility] [place] Blast pct CANCELED % [facility] [place] Comment:Result canceled by t he ancillary NRBC CANCELED 0 /100 WBC [facility] [place] Comment:Result canceled by t he ancillary Comment CANCELED [facility] [place] Comment:Result canceled by t he ancillary 12/18/2016 3:08 PM CDT 12/18/2016 3:08 PM CDT Narrative Resulting Agency Comment Performing Organization Information: ?Site ID: [place] ?Name: [facility] ?Address: [address] [place], [place] [address] [address] ?Director: Todd Corrigan D.O., MPH Eric Crowder MD LAB BLOOD ORDERABLES Fin al Result Performing Organization Address City/[facility]/ZIP Co de Phone Number [facility] [place] * Erythrocyte sedimentation rate (12/18/2016 3:08 PM CDT) Erythrocyte sedimentation rate 11 < OR = 20 mm/h [facility] [place] 12/18/2016 3:08 PM CDT 12/18/2016 3:08 PM CDT Narrative Resulting Agency Comment Performing Organization Information: ?Site ID: [place] ?Name: [facility] ?Address: [facility] [place] [address] ?Director: Todd Corrigan D.O., MPH Eric Crowder MD LAB BLOOD ORDERABLES Fin al Result Performing Organization Address [facility] de Phone Number [facility] [place] * (ABNORMAL) Comprehensive metabolic panel (12/18/2016 3:08 PM CDT) Glucose 102(H) 65 - 99 mg/dL [facility] [place] Comment: ? Fasting reference interval For someone without known diabetes, a glucose value between 100 and 125 mg/dL is consistent with prediabetes and should be confirmed with a follow-up test. BUN 9 7 - 25 mg/dL [facility] [place] Creatinine 0.72 0.50 - 1.10 mg/dL [facility] [place] eGFR NON-AFR. MOLD[place]AN 100 > OR = 60 mL/min/1. 73m2 [facility] [place] EGFR 116 > OR = 60 mL/min/1. 73m2 [facility] [place] BUN/creat ratio NOT APPLICABLE 6 - 22 (calc) [facility] [place] Sodium 140 135 - 146 mmol/L [facility] [place] Potassium, pl 4.6 3.5 - 5.3 mmol/L [facility] [place] Chloride 106 98 - 110 mmol/L [facility] [place] CO2 28 20 - 31 mmol/L [facility] [place] Calcium 9.8 8.6 - 10.2 mg/dL [facility] [place] Protein, sr 7.3 6.1 - 8.1 g/dL [facility] [place] Albumin 4.4 3.6 - 5.1 g/dL [facility] [place] Globulin 2.9 1.9 - 3.7 g/dL (calc) [facility] [place] Alb/glob ratio 1.5 1.0 - 2.5 (calc) [facility] [place] Bilirubin, total 0.3 0.2 - 1.2 mg/dL [facility] [place] Alk phos 65 33 - 115 U/L [facility] [place] AST 22 10 - 35 U/L [facility] [place] ALT (SGPT) 21 6 - 29 U/L [facility] [place] 12/18/2016 3:08 PM CDT 12/18/2016 3:08 PM CDT Narrative Resulting Agency Comment Performing Organization Information: ?Site ID: [place] ?Name: [facility] ?Address: [address] [place] [address] [place] [address] ?Director: Todd Corrigan D.O., MPH us Eric Crowder MD LAB BLOOD ORDERABLES Fin al Result [facility] [place] documented in this encounter Visit Diagnoses Not on filedocumented in this encounter Care Teams Rod Filler Relationship Specialty Start Date End Date Kevin Bowles MD [facility] [address] [address] PCP - General 06/19/16 01/16/24 documented as of this encounter
--- OUTSIDE RECORDS SUMMARY | 2024-04-01 11:20 | XMS_ITS | Encounter Summary ---
Author Organization [facility] Address [address] [place] [address] Phone Care Team Providers Care Health Informatics Specialist Name Role Phone Kevin Bowles MD Primary Care Provider [phone] Eric Crowder MD Unavailable [phone] Encounter Details Date Type Department Care Team (Late st Contact Info) Description 02/09/2019 Telephone [facility] [address] [place] [address] Berta Frey PA [address] [place] [address] Social History Tobacco Use Types Packs/Day Years Used Date Smoking Tobacco: Never Alcohol Use Standard Drinks/Week Comments Yes 0 (1 standard drink = 0.6 oz pur e alcohol) Comments Unknown Sex and Gender Information Value Date Recorded Sex Assigned at Not on file 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 CTOR OF EXHIBIT DEVELOPMENT * Telephone Encounter - Berta Frey PA - 02/09/2019 1:21 PM DIRECTOR OF EXHIBIT DEVELOPMENT This pt was in the office today with her friend and asked that I let you know that she is due for refills of all of her medications. CTOR OF EXHIBIT DEVELOPMENT documented in this encounter Plan of Treatment Not on file documented as of this encounter Visit Diagnoses Not on filedocumented in this encounter Care Teams Health Informatics Specialist Relationship Specialty Start Date End Date Kevin Bowles MD [address] [facility] [address] [place] [address] PCP - General 06/19/16 01/16/24 Eric Crowder MD [address] [facility] [address] [place] [address] Rheumatology 01/18/17 documented as of this encounter
--- OUTSIDE RECORDS SUMMARY | 2024-04-01 11:20 | XMS_ITS | Encounter Summary ---
Author Organization [facility] Facility Care Team Providers Care Assistant Store Director Name Role Phone Kevin Bowles MD Primary Care Provider [phone] Encounter Details Date Type Department Care Team (Late st Contact Info) Description 11/26/2015 9:59 AM CDT - 11/26/2015 11:59 PM CDT Hospital Encounter [facility] Kevin Bowles MD [address] [facility] [address] [address] Other abnormal and inconclusive findings on diagnostic imaging of breast; Breast lump Social History Tobacco Use Types Packs/Day Years Used Date Smoking Tobacco: Never Alcohol Use Standard Drinks/Week Comments Yes 0 (1 standard drink = 0.6 oz pur e alcohol) Comments Unknown Sex and Gender Information Value Date Recorded Sex Assigned at Not on file 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 HISTORY: 45-year-old woman previously evaluated for a right breast palpable lump at 2 o'clock thought to be a lipoma. ??An oval nodule noted in the left breast at ultrasound features consistent with a benign fibroadenoma. Patient reports no change in her breast exam. CC and MLO views of both breasts are obtained with tomosynthesis as are standard view in ML projection. ??Comparison is made to prior study 11/21/2014. FINDINGS: Right breast: There are scattered fibroglandular densities in a pattern not significantly changed. ??Lymph nodes in the upper outer quadrant persist. ??No new mass, distortion or suspicious calcifications identified. Left breast: There are scattered fibroglandular densities in a pattern not significantly changed. ??A benign-appearing circumscribed nodule in the upper outer quadrant is again evident unchanged and correlates to a benign-appearing hypoechoic nodule thought to be a fibroadenoma by ultrasound. ??No new mass, distortion or suspicious calcifications identified. IMPRESSION: Right breast: Negative/category 1. ??There is no mammographic evidence of malignancy. ??Pattern of fibroglandular densities appear stable. ?? Follow-up mammogram recommended in November 2016 to continue patient on her normal annual cycle. Left breast: Benign/category 2. ??A circumscribed oval nodule in the upper outer quadrant appears stable and correlates to a hypoechoic nodule in the left breast thought to be a fibroadenoma. ??No further assessment is thought necessary at this time. ??Follow-up mammogram in November 2016 recommended to continue patient on her normal annual cycle. Overall assessment: Benign. Electronically signed by: Teja Velasco M.D. Radiologist: TEJA VELASCO MD ?? Attending: ??KEVIN BOWLES Requesting: KEVIN BOWLES Requesting Fax: ?? Requesting ID: [id number] Attending Fax: ?? Attending ID: ?? [id number] Completed Time: ?? 11/26/2015 10:31 AM Dictated Time: ?N/A Transcribed Time: 11/26/2015 10:59 AM Signed by: ?TEJA VELASCO MD ?? on 11/26/2015 10:59 AM Report To 1 ID: Report To 1 Name: , Report To 1 FAX: Report To 2 ID: Report To 2 Name: , Report To 2 FAX: Report To 3 ID: Report To 3 Name: , Report To 3 FAX: NextGen Order #: Procedure Note Provider, MD Miles - 07/26/2016 Diagnostic mammogram with tomosynthesis bilateral. HISTORY: 45-year-old woman previously evaluated for a right breast palpable lump at 2 o'clock thought to be a lipoma. An oval nodule noted in the left breast at ultrasound features consistent with a benign fibroadenoma. Patient reports no change in her breast exam. CC and MLO views of both breasts are obtained with tomosynthesis as are standard view in ML projection. Comparison is made to prior study 11/21/2014. FINDINGS: Right breast: There are scattered fibroglandular densities in a pattern not significantly changed. Lymph nodes in the upper outer quadrant persist. No new mass, distortion or suspicious calcifications identified. Left breast: There are scattered fibroglandular densities in a pattern not significantly changed. A benign-appearing circumscribed nodule in the upper outer quadrant is again evident unchanged and correlates to a benign-appearing hypoechoic nodule thought to be a fibroadenoma by ultrasound. No new mass, distortion or suspicious calcifications identified. IMPRESSION: Right breast: Negative/category 1. There is no mammographic evidence of malignancy. Pattern of fibroglandular densities appear stable. Follow-up mammogram recommended in November 2016 to continue patient on her normal annual cycle. Left breast: Benign/category 2. A circumscribed oval nodule in the upper outer quadrant appears stable and correlates to a hypoechoic nodule in the left breast thought to be a fibroadenoma. No further assessment is thought necessary at this time. Follow-up mammogram in November 2016 recommended to continue patient on her normal annual cycle. Overall assessment: Benign. Electronically signed by: Teja Velasco M.D. Radiologist: TEJA VELASCO MD Attending: KEVIN BOWLES Requesting: KEVIN BOWLES Requesting Requesting ID: [id number] Attending Attending ID: [id number] Completed Time: 11/26/2015 10:31 AM Dictated Time: N/A Transcribed Time: 11/26/2015 10:59 AM Signed by: TEJA VELASCO MD on 11/26/2015 10:59 AM Report To 1 ID: Report To 1 Name: , Report To 1 FAX: Report To 2 ID: Report To 2 Name: , Report To 2 FAX: Report To 3 ID: Report To 3 Name: , Report To 3 FAX: NextGen Order #: us Historical Provider MD [facility] MAMMO PROCEDURES Joi l Result documented in this encounter Visit Diagnoses Diagnosis Other abnormal and inconclusive findings on diagnostic imaging of breast Breast lump Lump or mass in breast documented in this encounter Care Teams Assistant Store Director Relationship Specialty Start Date End Date Kevin Bowles MD PCP - General 06/17/15 06/18/16 documented as of this encounter
--- OUTSIDE RECORDS SUMMARY | 2024-04-01 11:20 | XMS_ITS | Encounter Summary ---
Author Organization [facility] Address [address] [place] [address] Phone Care Team Providers Care Aviation Project Manager Name Role Phone Kevin Bowles MD Primary Care Provider [phone] Eric Crowder MD Unavailable [phone] Encounter Details Date Type Department Care Team (Late st Contact Info) Description 02/09/2019 Orders Only [facility] [address] [place] [id number] Christa Bueno PA [address] [place] [address] Social History Tobacco Use Types Packs/Day Years Used Date Smoking Tobacco: Never Alcohol Use Standard Drinks/Week Comments Yes 0 (1 standard drink = 0.6 oz pur e alcohol) Comments Unknown Sex and Gender Information Value Date Recorded Sex Assigned at Not on file Legal Sex Female 9:01 PM 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 RESOURCES INTERN Gender Identity Not on file Sexual Orientation Not on file documented as of this encounter Ordered Prescriptions Prescription Sig Dispense Quantity Refills Last Filled Start Date End Date hydroxychloroquine (PLAQUENIL) 200 mg tablet Take 1 tablet (200 mg total) by mouth 2 (two) times a day 60 tablet 2 02/09/2019 9 methotrexate 2.5 mg tabletIndications: Rheumatoid Arthritis Take 6 Tablets by mouth once weekly 24 tablet 2 02/09/2019 0 sulfaSALAzine EN (AZULFIDINE EN) 500 mg EC tablet Take 3 tabs PO bid 180 tablet 2 02/09/2019 0 documented in this encounter Plan of Treatment Not on file documented as of this encounter Visit Diagnoses Not on filedocumented in this encounter Discontinued Medications Medication Sig Discontinue Reason Start Date End Da te sulfaSALAzine EN (AZULFIDINE EN) 500 mg EC tablet Take 3 tabs PO bid Reorder 11/29/2018 02/09/2019 methotrexate 2.5 mg tabletIndications:Rheuma toid Arthritis Take 6 Tablets by mouth once weekly Reorder 11/29/2018 02/09/2019 hydroxychloroquine (PLAQUENIL) 200 mg tablet Take 1 tablet (200 mg total) by mouth 2 (two) times a day Reorder 11/29/2018 02/09/2019 documented as of this encounter Care Teams Aviation Project Manager Relationship Specialty Start Date End Date Kevin Bowles MD [facility] [address] [place] [address] PCP - General 06/19/16 01/16/24 Eric Crowder MD [address] [facility] [address] [place] [address] Rheumatology 01/18/17 documented as of this encounter
--- OUTSIDE RECORDS SUMMARY | 2024-04-01 11:20 | XMS_ITS | Encounter Summary ---
Author Organization [facility] Facility Care Team Providers Care Ensemble Member Name Role Phone Unavailable Primary Care Provider Unavailabl e Encounter Details Date Type Department Care Team (Late st Contact Info) Description 03/07/2015 - 03/07/2015 11:59 PM MEDICAL OFFICE PROFESSIONAL INSTRUCTOR Hospital Encounter [facility] Mychal Tracy MD [address] [facility] [address] [place] [address] Carpal tunnel syndrome; Synovitis and tenosynovitis; Other specified joint disorders, left wrist Social History Tobacco Use Types Packs/Day Years Used Date Smoking Tobacco: Never Assessed Comments Unknown Sex and Gender Information Value Date Recorded Sex Assigned at Not on file Legal Sex Female 9:01 PM MEDICAL OFFICE PROFESSIONAL INSTRUCTOR Gender Identity Not on file Sexual Orientation Not on file documented as of this encounter Plan of Treatment Not on file documented as of this encounter Procedures Procedure Name Priority Date/Time Associated Diagnosis Comments MRI UPPER EXTREMITY JOINT WO CONTRAST Routine 03/07/2015 9:10 AM MEDICAL OFFICE PROFESSIONAL INSTRUCTOR documented in this encounter Results * MRI Upper Extremity Joint WO Contrast (03/07/2015 9:10 AM MEDICAL OFFICE PROFESSIONAL INSTRUCTOR) Anatomical Region Laterality Modality Upper Extremities N/A Magnetic Reson ance 03/07/2015 9:10 AM MEDICAL OFFICE PROFESSIONAL INSTRUCTOR Narrative 03/07/2015 4:51 PM MEDICAL OFFICE PROFESSIONAL INSTRUCTOR MARIELLA PUENTE M.D. MYCHAL THRASHER M.D. FINAL REPORT The radiology attending physician has personally reviewed this study, and has reviewed and/or edited this written report and agrees with it. ACC# ??Date Time ??Exam [id number] Mar 07, 2015 09:10:00 [id number] MRI JntUpper Extrm wo cont L ACC# ??Date Time ??Exam [id number] Mar 07, 2015 09:10:00 [id number] MRI JntUpper Extrm wo cont L EXAMINATION: ?? MRI of the left wrist without contrast HISTORY: Inability to extend the left ring and small fingers. FINDINGS: No radiographs are available for comparison. Magnetic resonance imaging of the left wrist is performed with a dedicated extremity. Coronal and short axis short TR/TE spin echo images, sagittal fast spin echo images and coronal 3-D gradient echo images were obtained. There is no fracture or bone signal abnormality. The articular cartilage appears normal. There is a Jain 1-A traumatic tear of the triangular fibrocartilage. This nonarthrographic examination, the intrinsic wrist ligaments are intact. There is mild tendinopathy involving the abductor pollicis longus and extensor pollicis brevis within the first compartment. An extensor carpi radialis intermedius tendon is present in the second dorsal compartment, a normal variant. The third compartment is normal. Within the fourth compartment, there is severe infiltration of old the tendons of the extensor digitorum communis extensor indicis a most severe centered at Marcos's tubercle. There is no tendon retraction, but I am not certain that also tendons are in continuity. The disease is most severe in the extensor digitorum communis tendons extending to the small and ring fingers. The fifth dorsal compartment is normal. Is mild tendinopathy of the extensor carpi ulnaris without tenosynovitis. The median nerve is focally enlarged and hyperintense on the water sensitive images with in the carpal tunnel. The flexor retinaculum appears intact and is bowed volarly. These are finding strongly associated with clinical carpal tunnel syndrome. The contents of Guyon's canal are normal. The flexor tendons are normal. The patient does have a palmaris longus tendon. There is no ganglion cyst. ?? IMPRESSION: 1. Severe tendinopathy or tendinitis within the fourth extensor compartment with mild associated tenosynovitis, and near complete infiltration of the tendons, especially the extensor tendons of the small and ring fingers at the level of Marcos's tubercle. If the tendons are not ruptured, they are at high risk of spontaneous rupture. If the continuity of the tendons is important to know before tenosynovectomy, a dynamic ultrasound examination can be performed. These findings were discussed by telephone with Dr. Beasley by Dr. Mace. 2. Jain 1-A triangular fibrocartilage lesion. 3. Secondary findings of carpal tunnel syndrome. ?? Requested By: Dictated By: ?? MYCHAL THRASHER M.D. ??on Mar 07 2015 11:34A This document has been electronically signed by: MARIELLA PUENTE M.D. on Mar 07 2015 ??4:51P [id number] Procedure Note Provider, MD Miles - 07/26/2016 MARIELLA PUENTE M.D. MYCHAL THRASHER M.D. FINAL REPORT The radiology attending physician has personally reviewed this study, and has reviewed and/or edited this written report and agrees with it. ACC# Date Time Exam [id number] Mar 07, 2015 09:10:00 [id number] MRI JntUpper Extrm wo cont L ACC# Date Time Exam [id number] Mar 07, 2015 09:10:00 [id number] MRI JntUpper Extrm wo cont L EXAMINATION: MRI of the left wrist without contrast HISTORY: Inability to extend the left ring and small fingers. FINDINGS: No radiographs are available for comparison. Magnetic resonance imaging of the left wrist is performed with a dedicated extremity. Coronal and short axis short TR/TE spin echo images, sagittal fast spin echo images and coronal 3-D gradient echo images were obtained. There is no fracture or bone signal abnormality. The articular cartilage appears normal. There is a Jain 1-A traumatic tear of the triangular fibrocartilage. This nonarthrographic examination, the intrinsic wrist ligaments are intact. There is mild tendinopathy involving the abductor pollicis longus and extensor pollicis brevis within the first compartment. An extensor carpi radialis intermedius tendon is present in the second dorsal compartment, a normal variant. The third compartment is normal. Within the fourth compartment, there is severe infiltration of old the tendons of the extensor digitorum communis extensor indicis a most severe centered at Marcos's tubercle. There is no tendon retraction, but I am not certain that also tendons are in continuity. The disease is most severe in the extensor digitorum communis tendons extending to the small and ring fingers. The fifth dorsal compartment is normal. Is mild tendinopathy of the extensor carpi ulnaris without tenosynovitis. The median nerve is focally enlarged and hyperintense on the water sensitive images with in the carpal tunnel. The flexor retinaculum appears intact and is bowed volarly. These are finding strongly associated with clinical carpal tunnel syndrome. The contents of Guyon's canal are normal. The flexor tendons are normal. The patient does have a palmaris longus tendon. There is no ganglion cyst. IMPRESSION: 1. Severe tendinopathy or tendinitis within the fourth extensor compartment with mild associated tenosynovitis, and near complete infiltration of the tendons, especially the extensor tendons of the small and ring fingers at the level of Marcos's tubercle. If the tendons are not ruptured, they are at high risk of spontaneous rupture. If the continuity of the tendons is important to know before tenosynovectomy, a dynamic ultrasound examination can be performed. These findings were discussed by telephone with Dr. Beasley by Dr. Mace. 2. Jain 1-A triangular fibrocartilage lesion. 3. Secondary findings of carpal tunnel syndrome. Requested By: Dictated By: MYCHAL THRASHER M.D. on Mar 07 2015 11:34A This document has been electronically signed by: MARIELLA PUENTE M.D. on Mar 07 2015 4:51P [id number] us Historical Provider MD [facility] MRI PROCEDURES Final Result documented in this encounter Visit Diagnoses Diagnosis Carpal tunnel syndrome Synovitis and tenosynovitis Unspecified synovitis and tenosynovitis Other specified joint disorders, left wrist documented in this encounter
--- OUTSIDE RECORDS SUMMARY | 2024-04-01 11:20 | XMS_ITS | Encounter Summary ---
Author Organization [facility] Facility Care Team Providers Care Retail Loan Originator Name Role Phone Kevin Bowles MD Primary Care Provider [phone] Eric Crowder MD Unavailable [phone] Encounter Details Date Type Department Care Team (Latest Contact Info) Description 08/29/2018 Travel Social History Tobacco Use Types Packs/Day Years Used Date Smoking Tobacco: Never Alcohol Use Standard Drinks/Week Comments Yes 0 (1 standard drink = 0.6 oz pur e alcohol) Comments Unknown Sex and Gender Information Value Date Recorded Sex Assigned at Not on file Legal Sex Female 9:01 PM JANITOR CUSTODIAN Gender Identity Not on file Sexual Orientation Not on file documented as of this encounter Plan of Treatment Not on file documented as of this encounter Visit Diagnoses Not on filedocumented in this encounter Care Teams Retail Loan Originator Relationship Specialty Start Date End Date Kevin Bowles MD [facility] [address] [place] [address] PCP - General 06/19/16 01/16/24 Eric Crowder MD [address] [facility] [address] [place] [address] Rheumatology 01/18/17 documented as of this encounter
--- OUTSIDE RECORDS SUMMARY | 2024-04-01 11:20 | XMS_ITS | Encounter Summary ---
Author Organization [facility] Address [address] [place] [phone] Phone Care Team Providers Care English Composition Teacher Name Role Phone Kevin Bowles MD Primary Care Provider [phone] Eric Crowder MD Unavailable [phone] Reason for Visit * Reason Comments Arthritis Encounter Details Date Type Department Care Team (Latest Contact Info) Description 11/29/2017 11:00 AM CDT Office Visit [facility] [address] [facility] [address] [place] [address] Eric Crowder MD [address] [place] [id number] 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/HCC) (Primary Dx); 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 Social History Tobacco Use Types Packs/Day Years Used Date Smoking Tobacco: Never Alcohol Use Standard Drinks/Week Comments Yes 0 (1 standard drink = 0.6 oz pur e alcohol) Comments Unknown Sex and Gender Information Value Date Recorded Sex Assigned at Not on file Legal Sex Female 9:01 PM 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 Gender Identity Not on file Sexual Orientation Not on file documented as of this encounter Last Filed Vital Signs Vital Sign Reading Time Taken Comments Blood Pressure 130/76 11/29/2017 10:57 AM CDT Pulse 80 11/29/2017 10:57 AM CDT Temperature - - Respiratory Rate - - Oxygen Saturation - - Inhaled Oxygen Concentration - - Weight 134.3 kg (296 lb) 11/29/2017 10:57 AM CDT Height 162.6 cm (5' 4 ) 11/29/2017 10:57 AM CDT Body Mass Index 50.81 11/29/2017 10:57 AM CDT documented in this encounter Ordered Prescriptions Prescription Sig Dispense Quantity Refills Last Filled Start Date End Date folic acid (FOLVITE) 1 mg tablet Take 1 tablet (1 mg total) by mouth daily. Take one tab daily 30 tablet 5 11/29/2017 05/31/2018 hydroxychloroquine (PLAQUENIL) 200 mg tablet Take 1 tablet (200 mg total) by mouth 2 (two) times a day. 60 tablet 2 11/29/2017 05/31/2018 sulfaSALAzine EN (AZULFIDINE EN) 500 mg EC tablet Take 3 tabs PO bid 180 tablet 2 11/29/2017 05/31/2018 methotrexate 2.5 mg tablet Take 6 tabs PO weekly 24 tablet 2 11/29/2017 04/24/2018 documented in this encounter Progress Notes * Eric Crowder MD - 11/29/2017 11:00 AM CDT Subjective/Objective Patient ID: Monica Buckner is a 47 y.o. female. Chief Complaint Arthritis Still with ongoing joint pain which is unchanged. Has pain in hands, wrists, shoulders. Her fatigueis improved however. Is tolerating MTX 10 mg weekly as well as hcq and ssz. Is sleeping better. Numbness in fingers have resolved. Review of Systems Constitutional: Positive for fatigue. [...] breath sounds normal. 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 Neurological: She is alert and oriented to person, place, and time. 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 She hasno obvious synovitis. Will increase the methotrexate to 15 mg p.o. weekly and continue folic acid 1mg daily. Continue hydroxychloroquine 200 mg b.i.d. and sulfasalazine 1500 mg b.i.d.. She has a standing order for labs which she is next due in 2 weeks. Continue routine eye exams to monitor for hydr oxychloroquine toxicity. Will follow up in 3 months. 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 - folic acid (FOLVITE) 1 mg tablet; Take 1 tablet (1 mg total) by mouth daily. Take one tab daily Dr. Eric Crowder dictating using fluency direct. Aircraft Rigging And Controls Mechanic variances may occur. documented in this encounter Miscellaneous Notes * Assessment & Plan Note - Eric Crowder MD - 11/29/2017 11:36 AM CDT Associated Problem(s): 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/HCC) (HCC) She still has some pain and stiffness in the hands which is unchanged since her last visit. She hasno obvious synovitis. Will increase the methotrexate to 15 mg p.o. weekly and continue folic acid 1mg daily. Continue hydroxychloroquine 200 mg b.i.d. and sulfasalazine 1500 mg b.i.d.. She has a standing order for labs which she is next due in 2 weeks. Continue routine eye exams to monitor for hydr oxychloroquine toxicity. Will follow up in 3 months. 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 Unspecified inflammatory polyarthropathy [facility] current use 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 documented in this encounter Discontinued Medications Medication Sig Discontinue Reason Start Date End Da te methotrexate 2.5 mg tablet Take 4 tabs PO weekly Reorder 09/02/2017 11/29/2017 sulfaSALAzine EN (AZULFIDINE EN) 500 mg EC tablet TAKE THREE TABLETS BY MOUTH TWICE A DAY AFTER MEALS Reorder 11/23/2017 11/29/2017 hydroxychloroquine (PLAQUENIL) 200 mg tablet TAKE ONE TABLET BY MOUTH TWICE A DAY Reorder 11/23/2017 11/29/2017 folic acid (FOLVITE) 1 mg tablet Take 1 tablet (1 mg total) by mouth daily. Take one tab daily Reorder 09/02/2017 11/29/2017 documented as of this encounter Care Teams English Composition Teacher Relationship Specialty Start Date End Date Kevin Bowles MD [facility] [address] [place] [address] PCP - General 06/19/16 01/16/24 Eric Crowder MD [address] [facility] [address] [place] [address] Rheumatology 01/18/17 documented as of this encounter
--- OUTSIDE RECORDS SUMMARY | 2024-04-01 11:20 | XMS_ITS | Encounter Summary ---
Author Organization [facility] Facility Care Team Providers Care Broke Beater Name Role Phone Unavailable Primary Care Provider Unavailabl e Encounter Details Date Type Department Care Team (Late st Contact Info) Description 01/02/2013 6:50 AM CDT - 01/02/2013 4:00 PM CDT Hospital Encounter [facility] Brendan Tracy MD [address] [facility] [place] [address] Carpal tunnel syndrome Social History Tobacco Use Types Packs/Day Years Used Date Smoking Tobacco: Never Assessed Comments Unknown Sex and Gender Information Value Date Recorded Sex Assigned at Not on file Legal Sex Female 9:01 PM 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 Surgeon: Brendan Beasley M.D. Dictating: Brendan Beasley M.D. Service Dt: 01/02/2013 OPERATIVE REPORT FIRST BABY REGISTRY SALES CONSULTANT: Gracie Monzon M.D. ANESTHESIA: [place] Block. PREOPERATIVE DIAGNOSIS (ES): Left carpal tunnel syndrome. POSTOPERATIVE DIAGNOSIS (ES): Left carpal tunnel syndrome. NAME OF OPERATION: Left carpal tunnel release. INDICATIONS FOR PROCEDURE: The patient has been treated for bilateral carpal tunnel syndrome. She did well after right-sided release and, at this time, wished to undergo left-sided release. We went over the risks and benefits of surgery, risks including, but not limited to risk of anesthesia, bleeding, infection, nerve injury, tendon injury, possibility of persistent symptoms. She understood and wished to proceed. DESCRIPTION OF PROCEDURE: After consent was reviewed and the operative side was marked, the patient was brought to the operating room and placed supine on the operative stretcher. She underwent induction of Ana block anesthesia with a forearm tourniquet, prepped and draped with Chlorhexidine. We performed our verbal timeout to verify the above information. We then began the case with a short longitudinal incision on the palm just radial to the hook of the hamate. This was carried sharply through the skin, subcutaneous tissues, and palmar fascia. We visualized the transverse carpal ligament. There were no aberrant nerve branches seen within the ligament under direct vision along its ulnar border into the fat pad of the palm distally and through the antebrachial fascia of the forearm proximally. Contents of the canal were normal. We irrigated the wound. We closed the skin with 4-0 nylon suture, half percent, no epinephrine injected. Soft dressing applied. The patient was awoken and taken to recovery in stable condition. SPECIMENS REMOVED: None. INTRAOPERATIVE FLUIDS: Fluids per the anesthesia record. SPONGE/INSTRUMENT/NEEDLE COUNTS: Counts correct. CONDITION ON DISCHARGE FROM OPERATING ROOM: Stable to recovery. COMPLICATIONS: None. PRESENCE STATEMENT: I was present for the entire case. Electronically Signed By Brendan Beasley M.D. 01/26/2013 12:40 P Brendan Beasley M.D. Javon/gab #[id number] Editing MT: nitin TD: 01/02/2013 10:30:00 cc: Orthopedic Billing Brendan Beasley M.D. documented in this encounter Plan of Treatment Not on file documented as of this encounter Procedures Procedure Name Priority Date/Time Associated Diagnosis Comments URINE CHORIONIC GONADOTROPIN (HCG) Routine 01/02/2013 7:00 AM CDT DISCHARGE LABORATORY CUMULATIVE REPORT Routine 01/02/2013 12:00 AM CDT documented in this encounter Results * Urine chorionic gonadotropin (HCG) (01/02/2013 7:00 AM CDT) HCG, ur Negative HISTORICAL RESULTS Urine 01/02/2013 7:00 AM CDT us Brendan Beasley MD LAB BLOOD ORDERABLES Joi shay Result HISTORICAL RESULTS * Discharge Laboratory Cumulative Report (01/02/2013 12:00 AM CDT) 01/02/2013 Narrative HISTORICAL RESULTS - 01/03/2013 3:26 PM CDT ?[facility] ?Department of Laboratories ? [address] [facility] [address] ? [place] [address] Patient Name: ??BLACK BUCKNER [facility] Rec Number: [id number] Fin Number: ?[id number] Date: ?1970 Sex/Age: ? Female 42 years Admit Date: ?01/02/2013 Discharge Date: 01/02/2013 Doctor: ?Brendan Beasley Facility: ?[facility] Location: ?OR Chart Printed: 01/03/2013 15:26 ?? * Abnormal ?? C Critical ?? f Footnote ?? ^ Corrected ?? L Low ?? H High ? i Interp Data ?? @ Reference Lab ? Chart Type:Periodic ?URINE HORMONES ?Test: hCG Ur Qual ? Reference: ? Units: 01/02/2013 ?? 07:00:00 ?? Negative us Historical Provider MD LAB BLOOD ORDERABLES Joi l Result HISTORICAL RESULTS documented in this encounter Visit Diagnoses Diagnosis Carpal tunnel syndrome documented in this encounter
--- OUTSIDE RECORDS SUMMARY | 2024-04-01 11:20 | XMS_ITS | Encounter Summary ---
Author Organization [facility] Facility Care Team Providers Care Microwave Radio Technician Name Role Phone Unavailable Primary Care Provider Unavailabl e Encounter Details Date Type Department Care Team (Late st Contact Info) Description 11/02/2012 9:21 AM CDT - 11/02/2012 4:00 PM T Hospital Encounter [facility] Brendan Tracy MD [address] [place] [address] Social History Tobacco Use Types Packs/Day Years Used Date Smoking Tobacco: Never Assessed Comments Unknown Sex and Gender Information Value Date Recorded Sex Assigned at Not on file 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
--- OUTSIDE RECORDS SUMMARY | 2024-04-01 11:20 | XMS_ITS | Encounter Summary ---
Author Organization [facility] Facility Care Team Providers Care Customer Trainer Name Role Phone Unavailable Primary Care Provider Unavailabl e Encounter Details Date Type Department Care Team (Late st Contact Info) Description 11/28/2012 7:35 AM CDT - 11/28/2012 4:00 PM CDT Hospital En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 Surgeon: Brendan Beasley M.D. Dictating: Brendan Beasley M.D. Service Dt: 11/28/2012 OPERATIVE REPORT FIRST HOSE TUBING BACKER: Lorelei Drake M.D. ANESTHESIA: Gerrard block with sedation. PREOPERATIVE DIAGNOSES: 1. Right hand carpal tunnel syndrome. 2. Ulnar nerve compression at the wrist. POSTOPERATIVE DIAGNOSES: 1. Right hand carpal tunnel syndrome. 2. Ulnar nerve compression at the wrist. NAME OF OPERATION: 1. Right carpal tunnel release. 2. Release of Guyon's canal for the ulnar nerve at the right wrist. INDICATIONS FOR PROCEDURE: This patient presented to my office with numbness and tingling in both hands. She had failed conservative management and had electrodiagnostic evidence of carpal tunnel syndrome along with clinical evidence of that along with ulnar nerve irritability at the wrist. I went over the risks and benefits of surgery, the risks including, not limited to risk of anesthesia, bleeding, infection, nerve injury, tendon injury, and possibility of persistent symptoms. She understood and wished to proceed. DESCRIPTION OF PROCEDURE: After consent was reviewed and the operative site was marked, the patient was brought to the operating room and kept supine on the operative stretcher. She underwent induction of sedation anesthesia with a forearm tourniquet and a Gerrard block. No antibiotics needed. Prepped and draped with chlorhexidine. We performed a verbal timeout to verify the above information. We began the case by making a longitudinal incision in the palm just radial to the hook of the hamate. This was carried sharply through the skin, subcutaneous tissue, and palmar fascia. We visualized the transverse carpal ligament. We then proceeded ulnarly dividing the tissue overlying Guyon's canal. We did this safely and identified the ulnar artery and nerve. We also proceeded ulnarly deep to the bundle to identify the ulnar motor branch coming off and going underneath the hypothenar muscle leading edge, and we released this to have this completely released as well. Once we were happy with this, we turned our attention back to the carpal tunnel where we made a release of the transverse carpal ligament along its ulnar border under direct vision into the fat pat of the palm distally and into the antebrachial fascia of the forearm proximally. Contents of the canal were normal. We irrigated the wound. We closed the skin with 4-0 nylon suture. A soft dressing applied after 0.5% Marcaine and no epinephrine injected. Tourniquet let down. The patient awoken and taken to recovery in stable condition. SPECIMENS REMOVED: None. INTRAOPERATIVE FLUIDS: Fluids per the anesthesia record. SPONGE/INSTRUMENT/NEEDLE COUNTS: Counts correct. CONDITION ON DISCHARGE FROM OPERATING ROOM: Stable to recovery. COMPLICATIONS: None. PRESENCE STATEMENT: I was present for the entire case. Electronically Signed By Brendan Beasley M.D. 12/05/2012 03:28 P Brendan Beasley M.D. [facility]/sxe #[id number] Editing MT: nitin TD: 11/28/2012 10:56:00 cc: Orthopedic Billing Brendan Beasley M.D. documented in this encounter Plan of Treatment Not on file documented as of this encounter Procedures Procedure Name Priority Date/Time Associated Diagnosis Comments URINE CHORIONIC GONADOTROPIN (HCG) Routine 11/28/2012 7:50 AM CDT DISCHARGE LABORATORY CUMULATIVE REPORT Routine 11/28/2012 12:00 AM CDT documented in this encounter Results * Urine chorionic gonadotropin (HCG) (11/28/2012 7:50 AM CDT) HCG, ur Negative HISTORICAL RESULTS Urine 11/28/2012 7:50 AM CDT us Brendan Beasley MD LAB BLOOD ORDERABLES Joi shay Result HISTORICAL RESULTS * Discharge Laboratory Cumulative Report (11/28/2012 12:00 AM CDT) 11/28/2012 Narrative HISTORICAL RESULTS - 11/28/2012 3:26 PM CDT ?[facility] ?Department of Laboratories ? [address] [facility] [place] ? [place] [address] Patient Name: ??BLACK BUCKNER [facility] Rec Number: [id number] Fin Number: ?[id number] Date: ?1970 Sex/Age: ? Female 42 years Admit Date: ?11/28/2012 Discharge Date: 11/28/2012 Doctor: ?Brendan Beasley Facility: ?[facility] Location: ?OR Chart Printed: 11/28/2012 15:26 ?? * Abnormal ?? C Critical ?? f Footnote ?? ^ Corrected ?? L Low ?? H High ? i Interp Data ?? @ Reference Lab ? Chart Type:Periodic ?URINE HORMONES ?Test: hCG Ur Qual ? Reference: ? Units: 11/28/2012 ?? 07:50:00 ?? Negative us Historical Provider MD LAB BLOOD ORDERABLES Joi l Result HISTORICAL RESULTS documented in this encounter Visit Diagnoses Diagnosis Carpal tunnel syndrome Lesion of ulnar nerve Chronic lymphocytic thyroiditis Allergic rhinitis Allergic rhinitis, cause unspecified Migraine Migraine, unspecified, without mention of intractable migraine without mention of status migrainosus Other acquired absence of organ History of allergy to other specified medicinal agents documented in this encounter
--- OUTSIDE RECORDS SUMMARY | 2024-04-01 11:20 | XMS_ITS | Encounter Summary ---
Author Organization [facility] Facility Care Team Providers Care Commercial Loan Administrator Name Role Phone Unavailable Primary Care Provider Unavailabl e Encounter Details Date Type Department Care Team (Late st Contact Info) Description 03/27/2015 4:02 PM INVERTED BLOCK OPERATOR - 03/27/2015 11:59 PM INVERTED BLOCK OPERATOR [facility] [address] [facility] [place] [address] Social History Tobacco Use Types Packs/Day Years Used Date Smoking Tobacco: Never Assessed Comments Unknown Sex and Gender Information Value Date Recorded Sex Assigned at Not on file 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
--- OUTSIDE RECORDS SUMMARY | 2024-04-01 11:22 | XMS_ITS | Clinical Summary ---
Author Organization [facility] Address [address] [place]: Epic Prelude ADT [place] [address] Care Team Providers Care Air Press Operator Name Role Phone Unavailable Primary Care Provider Unavailabl e Encounters Date Type Department Care Team Description 01/24/2024 External Device Data [facility] ABSTRACTION Provider, Abstract from Last 3 Months Social History Tobacco Use Types Packs/Day Years Used Date Smoking Tobacco: Never Assessed Sex and Gender Information Value Date Recorded Sex Assigned at Not on file Gender Identity Not on file Sexual Orientation Not on file Plan of Treatment Health Maintenance Due Date Last Done Comments DTAP/TDAP/TD VACCINES (1 - Tdap) 1989 HEPATITIS B VACCINES (1 of 3 - 19+ 3-dose series) 1989 CERVICAL CANCER SCREENING 2000 BREAST CANCER SCREENING 2010 COLORECTAL SCREENING 06/12/2015 Colorectal Cancer Screening 06/12/2015 FIT-DNA Q 3 years 06/12/2015 FIT/FOBT Q 1 year 06/12/2015 Flex Sig/CT Colonography Q 5 years 06/12/2015 ZOSTER VACCINE (1 of 2) 2020 INFLUENZA VACCINE (#1) 2023 PNEUMOCOCCAL VACCINE 0-64 YEARS Aged Out No longer eligible based on patient's age to complete this topic Insurance Payer Benefit Plan / Group Subscriber ID Effective Dates Phone Address Type RX [employer] SCRIPTS RX [employer] S[employer] XMPT [id number] Effective for all dates RX Express
--- OUTSIDE RECORDS SUMMARY | 2024-04-01 11:22 | XMS_ITS | Encounter Summary ---
Author Organization [facility] Address [address] [place] [address] Care Team Providers Care Bread Baker Name Role Phone Unavailable Primary Care Provider Unavailabl e Encounter Details Date Type Department Care Team (Late st Contact Info) Description 06/01/2023 External Device Data [facility] ABSTRACTION Provider, Abstract NO ADDRESS ON FILE Social History Tobacco Use Types Packs/Day Years [...]
--- OUTSIDE RECORDS SUMMARY | 2024-04-01 11:22 | XMS_ITS | Encounter Summary ---
Author Organization [facility] Address [address] [place] [address] Care Team Providers Care Insurance Advisor Name Role Phone Unavailable Primary Care Provider Unavailabl e Encounter Details Date Type Department Care Team (Late st Contact Info) Description 08/24/2023 External Device Data [facility] ABSTRACTION Provider, Abstract [...]
--- OUTSIDE RECORDS SUMMARY | 2024-04-01 11:22 | XMS_ITS | Encounter Summary ---
Author Organization [facility] Address [address] [place] [address] Care Team Providers Care Ultrasound Technician Name Role Phone Unavailable Primary Care Provider Unavailabl e Encounter Details Date Type Department Care Team (Late st Contact Info) Description 01/24/2024 External Device Data [facility] ABSTRACTION [...]
--- OUTSIDE RECORDS SUMMARY | 2024-04-01 11:22 | XMS_ITS | Encounter Summary ---
Author Organization [facility] Address [address] [place] [address] Care Team Providers Care Residential Driver Name Role Phone Unavailable Primary Care Provider Unavailabl e Encounter Details Date Type Department Care Team (Late st Contact Info) Description 07/07/2023 External Device Data [facility] ABSTRACTION Provider, Abstract [...]
--- OUTSIDE RECORDS SUMMARY | 2024-04-01 11:22 | XMS_ITS | Continuity of Care Document ---
Author Organization [facility] Address [address] [place] [address] [place] [address] Phone Care Team Providers Care On Awake Counselor Name Role Phone Jem Gracia MD Unavailable Unavailable Allergies, Adverse Reactions, Alerts Substance Reaction Status Criticality KETOROLAC TROMETHAMINE Active No In formation Medications Medication Instructions Dosage Effective Dates (start - stop) Status Comments Synthroid 175 mcg tablet take 1 tablet (175MCG) by oral route every day - Active amitriptyline 25 mg tablet take 1 tablet (25MG) by oral route every day at bedtime 25 MG - Active Procedures Procedure Date OFFICE/OUTPATIENT VISIT, EST OFFICE/OUTPATIENT VISIT, EST OFFICE/OUTPATIENT VISIT, EST PREV VISIT, EST, AGE 40-64 OFFICE/OUTPATIENT VISIT, EST OFFICE/OUTPATIENT VISIT, EST OFFICE/OUTPATIENT VISIT, EST OFFICE/OUTPATIENT VISIT, EST PREV VISIT, EST, AGE 40-64 OFFICE/OUTPATIENT VISIT, EST OFFICE/OUTPATIENT VISIT, EST Advance Directives Directive Yes / No Effective Date File Name No Information Encounters Encounter Description Practice Location Reason(s) For Visit Diagnoses Date Provider Providers Copied on Encounter OFFICE/OUTPA TIENT VISIT, EST [facility], [address] [place], [place] [address], [address], [place] tel:[phone] [facility] Medicine hematuria (chief complaint)HLP (chief complaint)hypot hyroidism (chief complaint)heada beena (chief complaint) HEMATURIA NOSOther and unspecified hyperlipidemia Hypothyroidism HeadacheDietar y surveillance and counseling [address] [facility]. [address], [address], [place], [address]. tel:[phone] Referring Provider: Jem Gracia, [address], [place], [facility]. tel:[phone] OFFICE/OUTPA TIENT VISIT, [facility], [address], [place], [place], [facility], tel:[phone] [facility] hypothyroidism (chief complaint)Heada beena (chief complaint)HLP (chief complaint) Hypothyroidism HeadacheDietar y surveillance and counselingOthe r and unspecified hyperlipidemia 5 [facility]. [address], [place], [facility]. tel:[phone] Referring Provider: Heidi Corrigan [address], [place], [facility]. tel:[phone] [facility], [address], [place], [address], [place] tel:[phone] [facility] No Information 5 [facility]. [address], [place], [facility]. tel:[phone] [facility], [address], [place], [address], [place] tel:[phone] [facility] No Information 4 [facility]. [address], [place], [facility]. tel:[phone] OFFICE/OUTPA TIENT VISIT, [facility], [address], [place], [address], [place] tel:[phone] [facility] hypothyroidism (chief complaint)heada beena (chief complaint)aller gic rhintiis (chief complaint) Dietary surveillance and counselingHypo thyroidismAlle rgic rhinitis, cause unspecifiedHea dache 4 [facility]. [address], [address], [place], [address]. tel:[phone] Referring Provider: Heidi Corrigan [address], [place], [address]. tel:[phone] PREV VISIT, EST, AGE 40-64 [facility], [address], [place], [address], [place] tel:[phone] [facility] PHysical (chief complaint) Dietary surveillance and counselingRout ine Medical ExamBronchitis , AcuteHypothyro idismOther and unspecified hyperlipidemia Routine Medical Exam Jun- 8201 4 [facility]. [address], [address], [place], [address]. tel:[phone] Referring Provider: Heidi Corrigan [address], [place], [facility]. tel:[phone] OFFICE/OUTPA TIENT VISIT, [facility], [address], [place], [address], [place] tel:[phone] [facility] HLP (chief complaint)vitam in D (chief complaint)HTN (chief complaint)fatig ue (chief complaint) Dietary surveillance and counselingHypo thyroidismOthe r and unspecified hyperlipidemia Insomnia, Other Dec- 3-201 3 [facility]. [address], [place], [facility]. tel:[phone] Referring Provider: Jem Gracia, [address], [place], [facility]. tel:[phone] OFFICE/OUTPA TIENT VISIT, EST [facility], [address], [place], [address], [place] tel:[phone] [facility] sinus congestion (chief complaint) Dietary surveillance and counselingSinu sitis, Acute Sep- 5201 3 [facility]. [address], [place], [address]. tel:[phone] Referring Provider: Heidi Corrigan [address], [place], [facility]. tel:[phone] OFFICE/OUTPA TIENT VISIT, [facility], [address], [place], [address], [place] tel:[phone] [facility] Carpal tunnel (chief complaint)shoul jeremi pain (chief complaint) Dietary surveillance and counselingCarp al Tunnel SyndromePain in joint involving shoulder region 3 [facility]. [address], [place], [address]. tel: [phone] Referring Provider: Heidi Corrigan [address], [place], [facility]. tel:[phone] PREV VISIT, EST, AGE 40-64 [facility], [address], [place], [facility], tel:[phone] [facility] Physical (chief complaint) Dietary surveillance and counselingRout ine Medical ExamCarpal Tunnel SyndromeHypoth yroidismHypert ension, UnspecifiedRou cathy Medical Exam 3 [facility] [address], [place], [facility]. tel:[phone] Referring Provider: Heidi Corrigan [address] [facility] [address], [place], [facility]. tel:[phone] OFFICE/OUTPA TIENT VISIT, EST [facility], [address], [place], [address], [place] tel:[phone] [facility] sinus symptoms (chief complaint)hypot hyroidism (chief complaint)aller gy (chief complaint) Dietary surveillance and counselingSinu sitis, AcuteGoiter, unspecifiedAll ergic rhinitis, cause unspecified 3 [facility] [address], [place], [facility]. [phone] Referring Provider: Heidi Corrigan [address] [place], [facility]. tel:[phone] Family History Family Member Type Diagnosis Age At Onset Father Problem (finding) Coronary artery disease 60 Brother Problem (finding) Alive and well Father Problem (finding) Hyperlipidemia Payers Payer name Insurance type Covered libertarian ID Authoriza tion(s) No Information Social History Type Description Quantity Date Captured Comments Alcohol Use Details Caffeine Use Details Unknown Tobacco Use Status No Information Smoking Status Never smoker Sex Female Vital Signs Date / Time: Height Weight BMI Pulse Rate Blood Pressure Temperature Respiratory Rate Body Surface Area Head Circumference BMI percentile Pulse Ox Inhaled Ox 5:52 PM 64.00 in 274.00 lbs 47.0 3 kg/m eter (2) 86 /min 124/78 mm[Hg] 97.2 F 16 /min Chief Complaint And Reason For Visit From encounter dated '05/24/2014 16:15'. hematuria (chief complaint) HLP (chief complaint) hypothyroidism (chief complaint) headache (chief complaint) Plan Of Treatment Date Type Action Status Goal Mammogram. Due on 3 due Referral Ordered: MAMMOGRAM, SCREENING ordered Referral Ordered: Referral: Plastic Surg. Evaluate and treat. ordered Referral Ordered: US THYROID ordered Referral Ordered: MOTOR NERVE CONDUCTION TEST ordered Referral Ordered: MAMMOGRAM, BOTH BREASTS ordered History Of Present Illness Encounter Date Complaint History Of Prese nt Illness No Information Instructions Date Instruction Additional Infor titus Physical activity counseling Rel ated to Dietary surveillance counseling Decrease caloric intake Related to Dietary surveillance counseling Physical activity counseling Rel ated to Dietary surveillance counseling Decrease caloric intake Related to Dietary surveillance counseling Decrease caloric intake Related to Dietary surveillance counseling Dietary counseling Related to Di etary surveillance counseling Decrease caloric intake Related to Dietary surveillance counseling Dietary counseling Related to Di etary surveillance counseling Dietary counseling Related to Di etary surveillance counseling Decrease caloric intake Related to Dietary surveillance counseling Dietary counseling Related to Di etary surveillance counseling Decrease caloric intake Related to Dietary surveillance counseling Dietary counseling Related to Di etary surveillance counseling Decrease caloric intake Related to Dietary surveillance counseling Decrease caloric intake Related to Dietary surveillance counseling Dietary counseling Related to Di etary surveillance counseling Dietary counseling Related to Di etary surveillance counseling Decrease caloric intake Related to Dietary surveillance counseling Assessments Type Assessment Date No Information Mental Status Date Cognitive Assessment Orientation - [place] ed to time, place, person, situation.
--- OUTSIDE RECORDS SUMMARY | 2024-04-01 11:22 | XMS_ITS | Encounter Summary ---
Author Organization [facility] Address [address] [place] [address] Care Team Providers Care Bindery Library Technical Assistant Name Role Phone Unavailable Primary Care Provider Unavailabl e Encounter Details Date Type Department Care Team (Late st Contact Info) Description 05/13/2023 External Device Data STL ABSTRACTION Provider, Abstract [...]
--- OUTSIDE RECORDS SUMMARY | 2024-04-01 11:22 | XMS_ITS | Encounter Summary ---
Author Organization [facility] Address [address] [place] [address] Care Team Providers Care Swedish Masseuse Name Role Phone Unavailable Primary Care Provider Unavailabl e Encounter Details Date Type Department Care Team (Late st Contact Info) Description 03/30/2023 External Device Data STL ABSTRACTION Provider, Abstract [...]
--- OUTSIDE RECORDS SUMMARY | 2024-04-01 11:25 | XMS_ITS | Continuity of Care Document ---
Author Organization [facility] Address [address] [place] [address] Phone Care Team Providers Care Thermodynamics Teacher Name Role Phone Jem Gracia MD Unavailable [...] Copied on Encounter OFFICE/OUTPA TIENT VISIT, EST [facility], [address] [place], [place] [address], [address], [place] tel:[phone] [facility] Medicine hematuria (chief complaint)HLP (chief complaint)hypot hyroidism (chief complaint)heada beena (chief complaint) HEMATURIA NOSOther and unspecified hyperlipidemia Hypothyroidism HeadacheDietar y surveillance and counseling 5 [facility]. [address], [address], [place], [address]. tel:[phone] Referring Provider: Jem Gracia, [address], [place], [place], [facility]. tel:[phone] OFFICE/OUTPA TIENT VISIT, [facility], [address], [place], [facility], tel:[phone] [facility] hypothyroidism (chief complaint)Heada beena (chief complaint)HLP (chief complaint) Hypothyroidism HeadacheDietar y surveillance and counselingOthe r and unspecified hyperlipidemia 5 [facility]. [address], [place], [facility]. tel:[phone] Referring Provider: Heidi Corrigan [address], [place], [facility]. tel:[phone] [facility], [address], [place], [address], [place] tel:[phone] [facility] No Information 5 [facility]. [address], [place], [facility]. tel:[phone] [facility], [address], [place], [address], [place] tel:[phone] [facility] No Information 4 [facility]. [address], [place], [facility]. tel:[phone] OFFICE/OUTPA TIENT VISIT, [facility], [address], [place], [address], [place] tel:[phone] [facility] hypothyroidism (chief complaint)heada beena (chief complaint)aller gic rhintiis (chief complaint) Dietary surveillance and counselingHypo thyroidismAlle rgic rhinitis, cause unspecifiedHea dache 4 [facility]. [address], [address], [place], [address]. tel:[phone] Referring Provider: Heidi Corr[address], [place], [address]. tel:[phone] PREV VISIT, EST, AGE 40-64 [facility], [address], [place], [address], [place] tel:[phone] [facility] PHysical (chief complaint) Dietary surveillance and counselingRout ine Medical ExamBronchitis , AcuteHypothyro idismOther and unspecified hyperlipidemia Routine Medical Exam Jun- 8201 4 [facility]. [address], [place], [address]. tel:[phone] Referring Provider: Heidi Corrigan [address], [place], [facility]. tel:[phone] OFFICE/OUTPA TIENT VISIT, [facility], [address], [place], [address], [place] tel:[phone] [facility] HLP (chief complaint)vitam in D (chief complaint)HTN (chief complaint)fatig ue (chief complaint) Dietary surveillance and counselingHypo thyroidismOthe r and unspecified hyperlipidemia Insomnia, Other Dec- 3-201 3 [facility]. [address], [place], [facility]. tel:[phone] Referring Provider: Jem Gracia, [address], [place], [facility]. tel:[phone] OFFICE/OUTPA TIENT VISIT, EST [facility], [address], [place], [address], [place] tel:[phone] [facility] sinus congestion (chief complaint) Dietary surveillance and counselingSinu sitis, Acute Sep- 5201 3 [facility]. [address], [place], [address]. tel:[phone] Referring Provider: Heidi Corrigan [address], [place], [facility]. tel:[phone] OFFICE/OUTPA TIENT VISIT, [facility], [address], [place], [address], [place] tel:[phone] [facility] Carpal tunnel (chief complaint)shoul jeremi pain (chief complaint) Dietary surveillance and counselingCarp al Tunnel SyndromePain in joint involving shoulder region 3 [facility]. [address], [address], [place], [address]. [phone] Referring Provider: Heidi Corrigan [address], [place], [facility]. tel:[phone] PREV VISIT, EST, AGE 40-64 [facility], [address], [place], [facility], tel:[phone] [facility] Physical (chief complaint) Dietary surveillance and counselingRout ine Medical ExamCarpal Tunnel SyndromeHypoth yroidismHypert ension, UnspecifiedRou cathy Medical Exam 3 [facility] [address], [place], [facility]. tel:[phone] Referring Provider: Heidi Corrigan [address] [facility] [address], [place], [facility]. tel:[phone] OFFICE/OUTPA TIENT VISIT, EST [facility], [address], [place], [address], [place] tel:[phone] [facility] sinus symptoms (chief complaint)hypot hyroidism (chief complaint)aller gy (chief complaint) Dietary surveillance and counselingSinu sitis, AcuteGoiter, unspecifiedAll ergic rhinitis, cause unspecified 3 [facility] [address], [place], [facility]. [phone] Referring Provider: Heidi [address] [place], [facility]. tel:[phone] Family History Family Member Type Diagnosis Age At Onset Father Problem (finding) Coronary artery disease 60 Brother Problem (finding) Alive and well Father Problem (finding) Hyperlipidemia Payers Payer name Insurance type Covered green party ID Authoriza tion(s) No Information Social History [...] Mental Status Date Cognitive Assessment Orientation - [place] ed to time, place, person, situation.
== END 2024-03-25 09:16 | disposition home or self-care (01) ==
PROVIDERS: Emergency Provider Nurse Practitioner Family; PCP Family Medicine
DX: J01.90 Acute sinusitis, unspecified (principal); B96.89 Other specified bacterial agents as the cause of diseases classified elsewhere; H66.91 Otitis media, unspecified, right ear
CPT/HCPCS: 99213; G0463

== ENCOUNTER 2024-05-31 09:47 | Outpatient (CLI) | payer OTHER, SELFPAY ==
--- NOTE | ~2024-05-31 | US_ITS ---
EXAMINATION: US soft tissue head and neck DATE: 05/31/2024 10:24 INDICATION: Right parotid mass. TECHNIQUE: Multiple grayscale and Doppler ultrasound images of the head and neck were obtained. COMPARISON: Neck CT 12/12/2015, brain MRI 10/23/2022 FINDINGS: In the right parotid gland, there is a 2.7 x 1.2 x 1.9 cm mass that is slightly hypoechoic relative to the normal parotid gland. The patient reports a multiple year history of a right parotid mass. The CT from 12/12/15 demonstrates a fat-containing mass in the right parotid gland for which bio psy on 01/06/2016 was nondiagnostic. The brain MRI on 10/23/2022 demonstrates a 2.7 cm fat-containing r ight parotid mass. There is no abnormal mass in the submandibular region. IMPRESSION: 1. Chronic benign right parotid mass. Reviewed, dictated and finalized at location B.
== END 2024-05-31 09:48 | disposition home or self-care (01) ==
LOC: MICIMG 09:48
PROVIDERS: PCP Family Medicine; Visit Provider Nurse Practitioner Family
DX: K11.8 Other diseases of salivary glands (principal); R59.1 Generalized enlarged lymph nodes
CPT/HCPCS: 76536

== ENCOUNTER 2024-09-23 17:13 | Emergency (ER) | payer OTHER, SELFPAY ==
[2024-09-23 17:22] VITALS: BP 116/72; PULSE 77; RESP 16; TEMP 36.4; O2SAT 100
--- NOTE | 2024-09-23 17:33 | ED_ITS ---
HPI - Ear Problem General Chief complaint: Ear Stated complaint: Earache Time Seen by Provider: 09/23/24 17:35 Source: patient Mode of arrival: ambulatory Limitations: no limitations History of Present Illness HPI Narrative: 54 y/o female presented for c/o right ear pain and nasal congestion. Onset 2 days. Started with feeling dizzy today, with both a room spinning and off balance feeling. Says she has a history of ear infections and vertigo. Takes multiple medications for sinuses and uses nasal lavage. Has seen ENT. Denies ear drainage, n/v/d/f/c. Complaint: ear pain Related Data Home Medications ?Medication ?Instructions ?Recorded ?Confirmed ?Last Taken ?Type hydroxychloroquine 200 mg tablet 200 mg PO BID 03/03/19 09/15/24 Unknown History (Plaquenil) lifitegrast 5 % eye drops in a 1 drp EACH EYE BID 06/28/21 09/15/24 Unknown History dropperette (Xiidra) leflunomide 20 mg tablet 20 mg PO DAILY 10/14/22 09/15/24 Unknown History Allergies Allergy/AdvReac Type Severity Reaction Status Date / Time ketorolac Allergy Severe Swelling Verified 09/23/24 17:33 of Lip/Tongue/Throat Review of Systems Review of Systems: CONSTITUTIONAL: Denies malaise, chills, or fever. EYES: Denies visual changes, redness, or discharge. ENT: Denies sinus pain, and sore throat. Reports ear pain rhinorrhea, congestion CARDIOVASCULAR: Denies chest pain, palpitations, or edema. RESPIRATORY: Denies cough or dyspnea. GASTROINTESTINAL: Denies abdominal pain, nausea, vomiting, diarrhea SKIN: Denies rash or itching. MUSCULOSKELETAL: Denies myalgia. NEUROLOGIC: reports dizziness Denies headache. 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 Surgical History Surgical History (Updated 09/15/24 @ 13:39 by Ping Castillo, Student) Status post trigger finger release History of orthopedic surgery Hx of cholecystectomy Hx of tonsillectomy H/O adenoidectomy Family History Family History Other Asthma Depression Grandparent Alcohol abuse Grandparent Thyroid disorder Other Heart disease Social History Social History Smoking status: Never smoker Alcohol intake: never Substance use: never Substance use type: does not use Do You Feel Safe in your Home?: Yes Lack of Transportation: No Lack of Food: Never True Current Housing: I Have Housing Concerned About Future Housing: No Difficulty Paying Gas/Electric Bills: No Difficulty Paying for Meds: No Currently Unemployed: No Education: Master's Degree or Higher Difficulty w/ Childcare or Family Care: No Living arrangements: with family Occupation/Education: occupation Additional occupation/education comments: stay at home Gender identity (if verbalized by the patient): Female Sexual Orientation (if Verbalized by the Patient): Straight or Heterosexual Spiritual care concerns: No Comments At time of signature, agree with nursing past medical, surgical, social and family history. There is no relevant family history pertinent to the presenting complaint Exam Narrative: GENERAL: mildly ill-appearing, and in no acute distress. HEAD: Normocephalic EYES: PERRLA, conjunctivae clear ENT: Nares clear. Mucous membranes moist. Left TM normal light reflex. Right TM mildly erythematous, dull light reflex, bulging and intact; canal not erythematous, no drainage, no tragal tenderness. Oropharynx not erythematous without lesions. no drooling, no hoarseness, no trismus, uvula midline. NECK: Supple. No lymphadenopathy CHEST: Clear to auscultation, breath sounds equal. HEART: Regular rate and rhythm. SKIN: Warm, dry, no rash. NEURO: Alert and oriented x3. PSYCH: Normal mood and affect Course Course Emergency Course: Patient is aware of diagnosis, understands and agrees to treatment plan. Anticipatory guidance given. Patient agrees to follow-up as directed and is aware of reasons to seek care at the emergency department. Portions of this record may have been created with voice recognition software Level of Care: Express Care Visit Vital Signs Vital signs: Vital Signs Temperature 97.5 F L 09/23/24 17:22 Pulse Rate 77 09/23/24 17:22 Respiratory Rate 16 09/23/24 17:22 Blood Pressure 116/72 09/23/24 17:22 Pulse Oximetry 100 09/23/24 17:22 Temperature 97.5 F L 09/23/24 17:22 Pulse Rate 77 09/23/24 17:22 Respiratory Rate 16 09/23/24 17:22 Blood Pressure 116/72 09/23/24 17:22 Pulse Oximetry 100 09/23/24 17:22 Reviewed Medical Decision Making MDM Narrative Medical decision making narrative: Advised supportive measures and signs/symptoms to go to the ER. Patient is appropriate for outpatient treatment and follow-up. Differential Diagnosis Differential Diagnosis: Coronavirus, strep pharyngitis, allergic rhinitis, upper respiratory tract infection, sinusitis, rhinosinusitis, nasopharyngitis, viral pharyngitis, otitis media, otitis externa, eustachian tube dysfunction, foreign body, cerumen impaction. Vital Signs Vital Signs: Vital Signs Temperature 97.5 F L 09/23/24 17:22 Pulse Rate 77 09/23/24 17:22 Respiratory Rate 16 09/23/24 17:22 Blood Pressure 116/72 09/23/24 17:22 Pulse Oximetry 100 09/23/24 17:22 Temperature 97.5 F L 09/23/24 17:22 Pulse Rate 77 09/23/24 17:22 Respiratory Rate 16 09/23/24 17:22 Blood Pressure 116/72 09/23/24 17:22 Pulse Oximetry 100 09/23/24 17:22 Discharge Plan Discharge Clinical Impression: Acute otalgia Patient Disposition: Home Condition: Stable Instructions: Antibiotic Form, Ear Infection (ED) Additional Instructions: Take antibiotics as directed. Continue your current medications and nasal lavage as previously instructed Tylenol 1000mg every 8 hours as needed to reduce fever, pain Please schedule a follow-up visit with your personal physician and ENT If your symptoms persist, change or worsen significantly, go to the emergency department for further evaluation. Patient Language: Colombian Prescriptions: New methylprednisolone [Medrol (Ortiz)] 4 mg tablets,dose pack See Rx Instructions .ROUTE .COMPLEX Qty: 21 0RF Rx Instructions: orally per package directions ondansetron 4 mg tablet,disintegrating 4 mg PO Q8H PRN (Reason: nausea and vomiting) Qty: 6 0RF amoxicillin-pot clavulanate 875-125 mg tablet 1 tablet PO Q12H 7 Days Qty: 14 0RF No Action Xiidra 5 % dropperette 1 p EACH EYE BID triamcinolone acetonide 0.5 % cream 1 applic topical BID Qty: 60 2RF clonazepam [Klonopin] 0.5 mg tablet 0.5 mg PO QHS PRN (Reason: insomnia) Qty: 90 0RF Rx Instructions: administer 30 minutes before bedtime hydroxychloroquine [Plaquenil] 200 mg tablet 200 mg PO BID leflunomide 20 mg tablet 20 mg PO DAILY celecoxib 200 mg capsule 200 mg PO DAILY Qty: 90 3RF clonidine HCl 0.2 mg tablet 0.2 mg PO Q12H Qty: 180 3RF montelukast 10 mg tablet 10 mg PO HS Qty: 90 3RF levothyroxine [Synthroid] 175 mcg tablet 175 mcg PO DAILY Qty: 90 3RF trazodone 50 mg tablet 50 mg PO DAILY PRN (Reason: insomnia) Qty: 90 3RF Follow-up/Referrals: Kevin Bowles MD [Primary Care Provider] - Time of Disposition: 17:49
== END 2024-09-23 17:50 | disposition home or self-care (01) ==
PROVIDERS: Emergency Provider Nurse Practitioner Family; PCP Family Medicine
DX: H92.01 Otalgia, right ear (principal); E06.3 Autoimmune thyroiditis
CPT/HCPCS: 99213; G0463

== ENCOUNTER 2025-01-08 17:32 | Outpatient (CLI) | payer OTHER, SELFPAY ==
--- NOTE | ~2025-01-08 | XR_ITS ---
EXAMINATION: XR hip RT 2V w AP pelvis, 01/08/2025 17:42 CDT HISTORY: pain in right hip and si joint x 1 week COMPARISON: No comparisons available. Findings: No acute fracture or malalignment. No significant degenerative changes. Soft tissues unremarkable. Impression: No acute fracture or malalignment. Reviewed, dictated and finalized at location P. Impression: No acute fracture or malalignment.
--- OUTSIDE RECORDS SUMMARY | 2025-01-08 19:07 | XMS_ITS | Clinical Summary ---
Author Organization [facility] Address [facility] [place] [address] Care Team Providers Care Timber Harvester Operator Name Role Phone Kevin Bowles MD Primary Care Provider [phone] Allergies Active Allergy Reactions Criticality Noted Date [...] % ophthalmic solution Active vitamin D2, ergocalciferol, 96740 UNITS capsule Take 1 capsule by mouth [...] topically 2 (two) times daily. 45 g 4 Active Active Problems Problem Noted Date [...] as needed. 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 Will recheck level. 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 Pulse 66 02/05/2024 11:06 PM REGIONAL PROJECT MANAGER Temperature 36.9 C (98.5 F) 02/05/2024 11:06 PM REGIONAL PROJECT MANAGER Respiratory Rate 20 02/05/2024 11:0 6 PM REGIONAL PROJECT MANAGER Oxygen Saturation 98% 02/05/2024 11: 06 PM REGIONAL PROJECT MANAGER Inhaled Oxygen Concentration - - Weight 110.8 kg (244 lb 4.3 oz) 024 11:06 PM REGIONAL PROJECT MANAGER Height 162.6 cm (5' 4) 02/05/2024 11:0 6 PM REGIONAL PROJECT MANAGER Body Mass Index 41.93 02/05/2024 11:06 PM REGIONAL PROJECT MANAGER Plan of Treatment Health Maintenance Due Date [...] 2000 Cervical Cancer Screening with HPV 2000 Pneumococcal Vaccine: 50+ Years (1 of 1 - PCV) 2020 Zoster Vaccines (1 of 2) 2020 COVID-19 Vaccine (5 - 2024- season) 2024 05/22/2021, 11/21/2020, 06/12/2020, Additional history exists Influenza Adult (#1) 2024 11/20/2021, 01/03/2021, 12/29/2019 Mammogram Screening 01/10/2026 01/11/2024, 11/30/2022, 09/26/2021, Additional history exists Hepatitis A Vaccines Aged Out No long er eligible based on patient's age to complete this topic Meningococcal B Vaccine Aged Out No l onger eligible based on patient's age to complete this topic Meningococcal Vaccine Aged Out No salas fabian eligible based on patient's age to complete this topic RSV Immunizations Under 20 Months Aged Out No longer eligible based on patient's age to complete this topic Insurance Care Teams Timber Harvester Operator Relationship Specialty Start Date End Date Kevin Bowles MD PCP - General FAMILY PRACTICE 01/11/18
--- OUTSIDE RECORDS SUMMARY | 2025-01-08 19:07 | XMS_ITS | Encounter Summary ---
Author Organization [facility] Address [address] [place] [address] Phone Care Team Providers Care Senior Counsel Commercial Name Role Phone Eric Crowder MD Unavailable [phone] Maico Martin MD Unavailable [phone] Herminia Kumar MD Unavailable [phone] Kevin Bowles MD Unavailable [phone] Kevin Bowles MD Primary Care Provider [phone] Naila Villegas OT Unavailable Unavailable Janelle Savage Unavailable Unavail able Janelle Beyer OT Unavailable Unavailable Encounter Details Date Type Department Care Team (Latest Contact Info) Description 11/27/2024 Results Follow-Up [facility] [address] [place] [id number] Christa Bueno PA [address] [place] [address] Comprehensive metabolic panel, CBC with auto differential, Erythrocyte sedimentation rate, CRP (acute phase) Social History Tobacco Use Types Packs/Day Years Used Date Smoking Tobacco: Never Passive Smoke Exposure: Never Smokeless Tobacco: Never Alcohol Use Standard Drinks/Week Comments Yes 0 (1 standard drink = 0.6 oz pur e alcohol) AUDIT-C Answer Date Recorded Q1: How often do you have a drink containing alcohol? Never 05/30/2024 Q2: How many drinks containi ng alcohol do you have on a typical day when you are drinking? Patient does not drink Q3: How often do you have si x or more drinks on one occasion? Never 05/30/2024 Personal Safety Answer Date Recorded Have you ever been in or are you currently in a harmful physical or emotional relationship or is someone making you feel afraid or unsafe? 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 Gender Identity Not on file Sexual Orientation Not on file documented as of this encounter Plan of Treatment Upcoming Encounters Date Type Department Care Team (Late st Contact Info) Description 01/19/2025 9:30 AM CDT Hospital Encounter [facility] Operating Room [address] [place] [address] Elizabeth Martin MD [address] [place] [address] 01/19/2025 9:30 AM CDT - 01/19/2025 11:00 AM CDT Surgery [facility] Operating Room [address] [place] [address] Elizabeth Martin MD [address] [place] [address] DILATION AND CURETTAGE/HYSTEROS COPY Scheduled Procedures Name Priority Associated Diagnoses Date/Ti me DILATION AND CURETTAGE/HYSTEROSCOPY Postmenopausal bleeding Thickened endometrium Endometrial polyp 01/19/2025 9:30 AM CDT POLYPECTOMY Postmenopausal bleeding Thickened endometrium Endometrial polyp 01/19/2025 9:30 AM CDT documented as of this encounter Visit Diagnoses Not on filedocumented in this encounter Care Teams Senior Counsel Commercial Relationship Specialty Start Date End Date Kevin Bowles MD [address] [place] [address] [address] [place] [address] PCP - General Family Medicine 02/02/24 Eric Crowder MD [address] [facility] [address] [place] [address] Rheumatology 01/18/17 Maico Martin MD [address] [facility] [address] [place] [address] Consulting Physician Neurology 11/09/22 Herminia Kumar MD [address] [facility] [address] [place] [address] Consulting Physician General Surgery 01/17/24 Kevin Bowles MD [address] [place] [address] [address] [place] [address] Referring Physician Family Medicine 01/17/24 Naila Villegas, OT Occupational Therapist Occupational Therapy 07/25/24 Janelle Savage COTA Belly Packer Occupational Therapy 08/09/24 Janelle Beyer OT Occupational Therapist Occupational Therapy 08/30/24 documented as of this encounter
--- OUTSIDE RECORDS SUMMARY | 2025-01-08 19:07 | XMS_ITS | Encounter Summary ---
Author Organization [facility] Address [address] [place] [address] Care Team Providers Care Application Assistant Name Role Phone Eric Crowder MD Unavailable [phone] Maico Martin MD Unavailable [phone] Herminia Kumar MD Unavailable [phone] Kevin Bowles MD Unavailable [phone] Kevin Bowles MD Primary Care Provider [phone] Naila Villegas OT Unavailable Unavailable Janelle Savage DAVIDSON Unavailable Unavail able Janelle Beyer OT Unavailable Unavailable Encounter Details Date Type Department Care Team (Late st Contact Info) Description 12/21/2024 Results Follow-Up [facility] [address] [place] [address] Elizabeth Martin MD [address] [place] [address] Surgical pathology, US Breast Limited right Social History Tobacco Use Types Packs/Day Years [...] on file 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 Gender Identity Not on file Sexual Orientation Not on file documented as of this encounter Plan of Treatment Upcoming Encounters Date Type Department Care Team (Late st Contact Info) Description 01/19/2025 9:30 AM CDT Hospital Encounter [facility] Operating Room [address] [place] [address] Elizabeth Martin MD [address] [place] [address] 01/19/2025 9:30 AM CDT - 01/19/2025 11:00 AM CDT Surgery [facility] Operating Room [address] [place] [address] Elizabeth Martin MD [address] [place] [address] DILATION AND CURETTAGE/HYSTEROS COPY Scheduled Procedures Name Priority Associated Diagnoses Date/Ti me DILATION AND CURETTAGE/HYSTEROSCOPY Postmenopausal bleeding Thickened endometrium Endometrial polyp 01/19/2025 9:30 AM CDT POLYPECTOMY Postmenopausal bleeding Thickened endometrium Endometrial polyp 01/19/2025 9:30 AM CDT documented as of this encounter Visit Diagnoses Not on filedocumented in this encounter Care Teams Application Assistant Relationship Specialty Start Date End Date Kevin Bowles MD [facility] [address] [place] [address] PCP - General Family Medicine 02/02/24 Eric Crowder MD [address] [place] [address] Rheumatology 01/18/17 Maico Martin MD [address] [facility] [address] [place] [address] Consulting Physician Neurology 11/09/22 Herminia Kumar MD [address] [facility] [address] [place] [address] Consulting Physician General Surgery 01/17/24 Kevin Bowles MD [facility] [address] [place] [address] Referring Physician Family Medicine 01/17/24 Naila Villegas, OT Occupational Therapist Occupational Therapy 07/25/24 Janelle Savage COTA Co Founder And Ceo Occupational Therapy 08/09/24 Janelle Beyer OT Occupational Therapist Occupational Therapy 08/30/24 documented as of this encounter
--- OUTSIDE RECORDS SUMMARY | 2025-01-08 19:07 | XMS_ITS | Clinical Summary ---
Author Organization [facility] Address [address] [facility] [place] [address] Care Team Providers Care Airbrush Artist Name Role Phone Kevin Bowles MD Primary Care Provider [phone] Source Comments [facility],non-owned Affiliates and Associated Physician Practices is amultiple site organization consisting of ambulatory clinics and hospital sitesin [place], [place], [place] and [place]. This disclosure is being madepursuant to the Care Everywhere program and may not contain all information available regarding this patient. Last updated 17.[facility] Allergies Active Allergy Reactions Criticality Noted Date Comments Ketorolac Anaphylaxis High 03/13/2021 Medications * Be aware that medications may not be up to date on this document. Alwaysverify current medications with the patient. ibuprofen (ADVIL) 200 MG capsule Take 200 [...] mouth every 6 hours as needed for Nausea/Vomitin g Active hydroxychloroqu ine (PLAQUENIL) 200 MG tablet Take by mouth once daily Active predniSONE (DELTASONE) 20 MG tabletIndicatio ns:RA flare Take three tablets PO once daily x 3 days, 2 tablets daily x 3 days, one tablet daily x 2 days Reasons: RA flare 17 tablet Active Social History Tobacco Use Types Packs/Day Years Used Date Smoking Tobacco: Never Smokeless Tobacco: Never Tobacco Cessation:Counseling Given: No Comments No Sex and Gender Information Value Date Recorded Sex Assigned at Not on file Legal Sex Female 3:08 PM CDT Gender Identity Not on file Sexual Orientation Not on file Last Filed Vital Signs Vital Sign Reading Time Taken Comments Blood Pressure 138/92 03/13/2021 10:23 AM ORDERLY Pulse 65 03/13/2021 10:11 AM ORDERLY Temperature 36.7 C (98 F) 03/13/2021 10:11 AM ORDERLY Respiratory Rate 18 03/13/2021 10:11 AM ORDERLY Oxygen Saturation 98% 03/13/2021 10:11 AM ORDERLY Inhaled Oxygen Concentration - - Weight 136.1 kg (300 lb) 03/13/2021 10:11 AM ORDERLY Height 162.6 cm (5' 4) 03/13/2021 10:11 AM ORDERLY Body Mass Index 51.49 03/13/2021 10:11 AM ORDERLY Plan of Treatment Health Maintenance Due Date Last Done Comments COLOGUARD (AGES 45-75) - COL ON CA SCREENING 1970 COLON MONITORING 1970 COLONOSCOPY - COLON CA SCREENING 1970 CT COLONOGRAPHY - COLON CA SCREENING 1970 Colorectal Cancer Screening 1970 FIT - COLON CA SCREENING 1970 FLEX SIG - COLON CA SCREENING 1970 LIPID TESTING 1970 MAMMOGRAM 1970 HIV SCREENING 1985 HEPATITIS C SCREENING 06/06/1988 DTAP/TDAP/TD VACCINES (1 - Tdap) 1989 HEPATITIS B VACCINE (1 of 3 - 19+ 3-dose series) 1989 PNEUMOCOCCAL VACCINE 50+ (1 of 1 - PCV) 2020 ZOSTER VACCINE (1 of 2) 2020 SCREENING FOR DIABETES 03/13/2021 DEPRESSION SCREENING 03/22/2024 COVID-19 VACCINE (4 - 2024-2 6 season) 2024 11/21/2020, 06/12/2020, 05/21/2020 INFLUENZA VACCINE (#1) 2024 , 12/29/2019 HIB VACCINE Aged Out No longer eligi ble based on patient's age to complete this topic HPV VACCINE Aged Out No longer eligi ble based on patient's age to complete this topic MENINGOCOCCAL (Group B) VACCINE SHARED DECISION-MAKING Aged Out No longer eligible based on patient's age to complete this topic MENINGOCOCCAL GROUPS A/C/Y/W VACCINE Aged Out No longer eligible b ased on patient's age to complete this topic Insurance Care Teams Airbrush Artist Relationship Specialty Start Date End Date Kevin Bowles MD [address] [place] [phone] PCP - General Family Medicine 06/03/15
--- OUTSIDE RECORDS SUMMARY | 2025-01-08 19:07 | XMS_ITS | Clinical Summary ---
Author Organization [facility] Address [address] [facility] [address] [place]: Epic Prelude ADT [place] [address] Care Team Providers Care Dramatic Critic Name Role Phone Unavailable Primary Care Provider Unavailabl e Social History Tobacco Use Types Packs/Day Years Used Date Smoking Tobacco: Never Assessed Comments Unknown Sex and Gender Information Value Date Recorded Sex Assigned at Not on file Legal Sex Female 7:49 AM CDT Gender Identity Not on file Sexual Orientation Not on file Plan of Treatment Health Maintenance Due Date Last Done Comments DTAP/TDAP/TD VACCINES (1 - Tdap) 1989 HEPATITIS B VACCINES (1 of 3 - 19+ 3-dose series) 05/21 HPV/Cotest (21-29) 06/12/1991 CERVICAL CANCER SCREENING 2000 HPV/Cotest (30-65) 2000 PAP SMEAR 2000 BREAST CANCER SCREENING 2010 COLORECTAL SCREENING 06/12/2015 Colorectal Cancer Screening 06/12/2015 FIT-DNA Q 3 years 06/12/2015 FIT/FOBT Q 1 year 06/12/2015 Flex Sig/CT Colonography Q 5 years 06/12/2015 ZOSTER VACCINE (1 of 2) 2020 INFLUENZA VACCINE (#1) 2024 Insurance RX [employer]
--- OUTSIDE RECORDS SUMMARY | 2025-01-08 19:07 | XMS_ITS | Clinical Summary ---
Author Organization [id number] Address [address] [place] [address] Phone Care Team Providers Care Automobile Radiator Mechanic Name Role Phone Eric Crowder MD Unavailable [phone] Maico Martin MD Unavailable [phone] Herminia Kumar MD Unavailable [phone] Kevin Bowles MD Unavailable [phone] Kevin Bowles MD Primary Care Provider [phone] Naila Villegas OT Unavailable Unavailable Janelle Savage DAVIDSON Unavailable Unavail able Janelle Beyer OT Unavailable Unavailable Allergies Active Allergy Reactions Criticality Noted Date Comments Adhesive Rash Medium 02/05/2024 Ok with Tegaderm and paper tape Sumatriptan Other (See comments) Jaw pain Ketorolac Other (See comments),Swollen tongue High Injection, tongue went numb Wheat Rash,Stomach upset,Edema Medium 12/28/2023 Face swelling Medications acetaminophen (TYLENOL) 325 mg tablet take 1 - 2 Tablet by oral route 3 times every day 0 0 06/03/19 16 Active loratadine (CLARITIN) 10 mg tablet take 1 tablet by oral route every day 0 0 06/03/19 16 Active levothyroxine (SYNTHROID, LEVOTHROID) 175 mcg tablet take 1 tablet by oral route every day 0 0 06/03/19 16 Active montelukast (SINGULAIR) 10 mg tabletIndications :Seasonal Allergic Rhinitis,chronic sinusitis Take 1 tablet (10 mg total) by mouth nightly Active cloNIDine (CATAPRES) 0.2 mg tabletIndications :Attention-Defici t Hyperactivity Disorder,hot flashes, night sweats Take 1 tablet (0.2 mg total) by mouth 2 (two) times a day 04/08/19 18 Active lifitegrast 5 % dropperetteIndica tions:sjogrens Administer 0.1 each (1 drop total) into both eyes 2 (two) times a day Xiidra Active ibuprofen 200 mg tab/capIndication s:Pain Take 2 tablets by mouth as needed for pain Active traZODone (DESYREL) 50 mg tabletIndications :insomnia associated with depression Take 1 tablet (50 mg total) by mouth nightly as needed for sleep Active celecoxib (CeleBREX) 200 mg capsuleIndication s:Pain Take 1 capsule (200 mg total) by mouth as needed for pain 01/08/20 24 Active triamcinolone (KENALOG) 0.1 % creamIndications: eczema on hands Apply topically as needed 01/20/20 24 Active pseudoephedrine (SUDAFED) 60 mg tabletIndications :Nasal Congestion Take 2 tablets (120 mg total) by mouth 2 (two) times a day as needed for congestion 2 tablets Active naproxen (NAPROSYN) 500 mg tablet Take 1 tablet (500 mg total) by mouth 06/02/19 25 Active hydroxychloroquin e (PLAQUENIL) 200 mg tabletIndications :Connective Tissue Disease,auto immune disease Take 1 tablet (200 mg total) by mouth 2 (two) times a day 180 tablet 1 12/28/19 25 Active leflunomide (ARAVA) 20 mg tabletIndications :Rheumatoid Arthritis Take 1 tablet (20 mg total) by mouth daily 90 tablet 1 12/28/19 25 026 Active lidocaine (LIDODERM) 5 % Place 1 patch on the skin daily as needed for pain Remove & discard patch within 12 hours or as directed by . 025 Discontin ued(Patie nt Reported) naproxen (ANAPROX DS) 550 mg tablet Take 1 tablet (550 mg total) by mouth 2 (two) times a day as needed for pain 025 Discontin ued(Dupli rich order) cyclobenzaprine (FLEXERIL) 10 mg tablet Take 1 tablet (10 mg total) by mouth 3 (three) times a day as needed for muscle spasms 025 Discontin ued(Patie nt Reported) HYDROcodone-aceta minophen (NORCO) 5-325 mg per tabletIndications :Pain Take 1 tablet by mouth every 6 (six) hours as needed for pain for up to 10 doses 10 tablet 06/13/19 25 025 Discontin ued(Patie nt Reported) hydroxychloroquin e (PLAQUENIL) 200 mg tabletIndications :Connective Tissue Disease,auto immune disease Take 1 tablet (200 mg total) by mouth 2 (two) times a day 180 tablet 1 06/28/19 025 Discontin ued(Reord er) leflunomide (ARAVA) 20 mg tabletIndications :Rheumatoid Arthritis Take 1 tablet (20 mg total) by mouth daily 90 tablet 1 06/28/19 025 Discontin ued(Reord er) Hospital, Clinic, or Other Facility Administered Medication Ordered Dose Route Frequency Start Date End Date Status triamcinolone (KENALOG) 40 mg/mL injection 100 mgIndications:Undifferentia denny inflammatory arthritis 100 mg IM Once 01/02/2025 Ended Active Problems Problem Noted Date Diagnosed Date Postmenopausal bleeding 12/27/2024 Thickened endometrium 12/27/2024 Endometrial polyp 12/27/2024 Severe obesity (BMI >= 40) 12/20/2024 Trigger finger, right middle finger 07/25/2024 Trigger finger, right ring finger 07/25/2024 Stiffness of right hand joint 07/25/2024 Weakness of right hand 07/25/2024 Lack of coordination 07/25/2024 Arthralgia of right hand 07/25/2024 Trigger middle finger of right hand 05/30/2024 Trigger ring finger of right hand 05/30/2024 Breast lipoma 01/27/2024 Acute pain of right [...] Vitamin D deficiency 06/22/2017 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 [...] in the wrist but overall little change. US right hand/wrist (01/02/25): 1. Dorsal wrist: Grade 1 power doppler. 2. Radial scaphoid joint: Grade 1 power doppler. 3. Ulnar styloid: Grade 1 power doppler. 4. 2nd PIP joint: Grade 1 power doppler with mild synovial thickening. 5. 3rd PIP joint: Moderate synovial thickening. 6. Additional views of the 4th PIP joint: Moderate synovial thickening. 7. Additional views of the 5th PIP joint: Mild synovial thickening. 8. In comparison to prior US of the right hand/wrist from 06/02/17, there is decreased effusions and power doppler in the wrist, radial scaphoid joint, and 2nd MCP joint and resolution of the power doppler previously seen in the 3rd MCP and volar 4th MCP joints. Patel 29 (06/01/17) Initial complaints of tenosynovitis of L wrist. Also has had pain and stiffness in hands, wrists. On mtx, hcq, ssz mtx started 09/02/17 Assessment & Plan (12/27/2024 10:54 AM CDT): High cdai. Increased synovitis and tenderness noted mainly in the right hand on exam today. She notes increasing frequency of flares and baseline pain requiring more frequent use of steroids. Recent CRP was mildly elevated where as it is usually in normal range. -Repeat R hand/wrist US to better evaluate for inflammatory arthritis. If treatment adjustment with a biologic is necessary, she prefers to try Rinvoq next. -Check RF, CCP. -Continue leflunomide 20mg daily. -Continue HCQ 400mg daily. Previously advised patient of risk of QT prolongation with zofran and HCQ. -Recent labs reviewed with patient. -Continue routine eye exams to monitor for plaquenil toxicity. -Continue routine labs every 3 months via standing order. -Follow up in 2 months. Sooner if needed. Assessment & Plan (06/27/2024 12:04 PM CDT): Moderate cdai. Increased synovitis and tenderness noted on peripheral exam today and she notes recent flare following surgery and COVID-19 infection. Prior to this flare she was doing okay. -Due to burden of disease, will administer kenalog 100 mg IM injection, in office, today. -Continue leflunomide 20mg daily. -Continue HCQ 400mg daily. Previously advised patient of risk of QT prolongation with zofran and HCQ. -Recent labs reviewed with patient. -Continue routine eye exams to monitor for plaquenil toxicity. -Continue routine labs every 3 months via standing order. -Follow up in 6 months. Sooner if needed. [...] She is wanting a referral to a coupon collection clerk but will call once she discusses coverage [...] Crowder. Assessment & Plan (05/21/2021 4:27 PM 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): High cdai. Noticing worsening nausea with MTX [...] needed. Assessment & Plan (04/04/2020 1:55 PM 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): Low cdai. Improved synovitis and tenderness noted [...] needed. Assessment & Plan (02/29/2020 4:01 PM 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): Moderate cdai. Increased synovitis and tenderness noted [...] needed. Assessment & Plan (03/01/2019 12:18 PM 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): Low cdai. No obvious synovitis with some [...] needed. Assessment & Plan (02/28/2018 11:51 AM 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): Low cdai. Patient reports that her joints [...] months. Assessment & Plan (03/04/2017 3:42 PM 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): Continues to do well with minimal complaints. [...] per ophth which has helped. Symptoms stable. care home current use 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 2016 Assessment & Plan (12/27/2024 10:54 AM CDT): Routine labs via standing order. Flu vaccine today. Recommend RSV and COVID vaccinations. Assessment & Plan (06/27/2024 9:56 AM CDT): Routine labs via standing order. Assessment & Plan (12/30/2023 9:45 AM CDT): [...] order. Assessment & Plan (05/21/2021 4:27 PM 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): Routine labs via standing order. Assessment & Plan (01/24/2021 3:13 PM CDT): Routine labs via standing order. Assessment & Plan (10/09/2020 11:39 AM CDT): Routine labs via standing order. Assessment & Plan (07/10/2020 11:01 AM CDT): Routine labs via standing order. Due for eye exam. Assessment & Plan (04/04/2020 1:36 PM 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): Routine labs via standing order. Due for eye exam. Assessment & Plan (02/29/2020 4:01 PM 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): Routine labs via standing order. Due for eye exam. Assessment & Plan (11/30/2019 1:48 PM CDT): Routine labs via standing order. Due for eye exam. Assessment & Plan (08/30/2019 11:49 AM CDT): Routine labs via standing order. Due for eye exam. Assessment & Plan (05/31/2019 11:01 AM CDT): Routine labs via standing order. Eye exam UTD. Assessment & Plan (03/01/2019 12:18 PM 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): Routine labs via standing order. Eye exam [...] Encounters Date Type Department Care Team Description 01/02/2025 9:55 AM CDT - 01/02/2025 11:59 PM CDT Hospital Encounter [facility] [address] [place] [phone] Undifferentiated inflammatory arthritis Discharge Disposition: Discharge to home or self care 01/02/2025 Telephone [facility] [address] [place] [phone] Eric Crowder MD 01/02/2025 Orders Only [facility] [address] [place] [phone] Christa Bueno PA Undifferentiated inflammatory arthritis (Primary Dx) 12/27/2024 10:00 AM CDT Office Visit [facility] [address] [place] [phone] Christa Bueno PA Undifferentiated inflammatory arthritis (Primary Dx); care home current use 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 12/22/2024 10:30 AM CDT Ancillary Procedure [facility] [address] [place] [address] Breast lipoma 12/22/2024 10:00 AM CDT Ancillary Procedure [facility] [address] [place] [address] Breast lipoma 12/21/2024 Results Follow-Up [facility] [address] [place] [address] Elizabeth Martin MD Surgical pathology, US Breast Limited right 12/20/[facility] [address] [place] [address] Elizabeth Martin MD Patient issue/concern 12/15/2024 11:54 AM CDT - 12/15/2024 11:59 PM CDT Hospital Encounter [facility] [address] [place] [address] Screening for malignant neoplasm of the cervix Discharge Disposition: Discharge to home or self care 12/15/2024 11:54 AM CDT - 12/15/2024 11:59 PM CDT Hospital Encounter [facility] [address] [place] [address] Postmenopausal bleeding; Thickened endometrium Discharge Disposition: Discharge to home or self care 12/15/2024 10:30 AM CDT Office Visit [facility] [address] [place] [address] Elizabeth Martin MD Postmenopausal bleeding (Primary Dx); Thickened endometrium; Screening for malignant neoplasm of the cervix; Encounter for screening mammogram for breast cancer; Breast lipoma 12/15/2024 Orders Only [facility] [address] [place] [address] Elizabeth Martin MD Breast lipoma (Primary Dx) 11/27/2024 Results Follow-Up [address] [phone] Christa Bueno PA Comprehensive metabolic panel, CBC with auto differential, Erythrocyte sedimentation rate, CRP (acute phase) 11/13/2024 10:32 AM CDT - 11/13/2024 11:59 PM CDT Hospital Encounter [facility] [address] [place] [address] Postmenopausal bleeding Discharge Disposition: Discharge to home or self care 10/31/2024 10:00 AM CDT Therapy [facility] [address] [place] [phone] Naila Villegas OT Trigger finger, right middle finger (Primary Dx); Trigger finger, right ring finger; Stiffness of right hand joint; Weakness of right hand; Lack of coordination; Arthralgia of right hand 10/31/2024 Plan of Care Documentation [facility] [address] [place] [phone] from Last 3 Months Immunizations Immunization Administration Dates Next Due Influenza, Quadrivalent, Stephanie l Culture-based MDCK, Preservative Free, Antibiotic Free, Intramuscular 11/20/2021 Influenza, Quadrivalent, Rec ombinant, Egg Free, Preservative Free, Intramuscular 01/03/2021,12/29/2019 Influenza, Quadrivalent, Split, Intramuscular Influenza, Quadrivalent, Spl it, Preservative Free, Intramuscular 03/30/2023,01/13/2019 Influenza, Trivalent, Recomb inant, Egg Free, Preservative Free, Antibiotic Free, IM (FLUBLOK) 12/02/2023 Surgical History Surgery Date Site/Laterality Comments CARPAL TUNNEL RELEASE Bilateral right- 11/2012, left- 12/2012 HAND SURGERY 03/22/2015 - 04/21/2015 Left tenosynovitis debridement COLONOSCOPY 09/19/2021 - 10/19/2021 ADENOIDECTOMY 07/20/1978 - 08/19/1978 TONSILLECTOMY 07/21/1979 - 08/20/1979 FINGER SURGERY 11/20/1982 - 12/19/1982 Left ring finger, distal joint CHOLECYSTECTOMY 05/20/2001 - 06/19/2001 KNEE ARTHROSCOPY 03/22/1994 - 03/21/1995 Right TRIGGER FINGER RELEASE 06/12/2024 Right 3rd/4th digit Medical History Medical History Date Comments Joint pain PONV (postoperative nausea and vomiting) Per pt, Zofran effective for PONV in past Morbid obesity (HCC) Autoimmune disorder Autoimmune A rthritis dxd 03/2015-- Currently treated with Arava and Plaquenil; Followed by program therapist Dr Crowder Hypothyroidism Hannah's disease Sjogren syndrome Family History Medical History Relation Name Comments Heart attack Father Heart disease Maternal Grandfather Alzheimer's disease Other paternal great uncle Heart disease Paternal Grandfather Anesthesia problems Neg Hx Relation Name Status Comments Father Maternal Grandfather Other Paternal Grandfather Social History Tobacco Use Types Packs/Day Years Used Date Smoking Tobacco: Never Passive Smoke Exposure: Never Smokeless Tobacco: Never Tobacco Cessation:Counseling Given: Not Answered [...] on file Legal Sex Female 9:01 PM 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 Gender Identity Not on file Sexual Orientation Not on file Obstetrics History Para Term AB IAB SAB Ectopic Multiple Livin g Live Births 3 3 3 3 3 Date Outcome GA Total Labor Labor/2nd/3rd Weight Sex Type Anes PTL April A1 A5 Name Clin 1996 Term 3.033 kg (6 lb 11 oz) M Vaginal Living 1997 Term 3.459 kg (7 lb 10 oz) F Vaginal Living 2002 Term 3.459 kg (7 lb 10 oz) F Vaginal Living Last Filed Vital Signs Vital Sign Reading Time Taken Comments Blood Pressure 124/70 12/27/2024 10:03 AM CDT Pulse 74 12/27/2024 10:03 AM CDT Temperature 36.7 C (98.1 F) 06/12/2024 8:50 AM CDT Respiratory Rate 25 06/12/2024 9:00 AM CDT Oxygen Saturation 98% 12/27/2024 10:03 AM CDT Inhaled Oxygen Concentration - - Weight 121.1 kg (267 lb) 12/27/2024 10:03 AM CDT Height 162.6 cm (5' 4) 12/27/2024 10:03 AM CDT Body Mass Index 45.83 12/27/2024 10:03 AM CDT Plan of Treatment Upcoming Encounters Date Type Department Care Team (Late st Contact Info) Description 01/19/2025 9:30 AM CDT Hospital Encounter [facility] Operating Room [address] [place] [address] Elizabeth Martin MD [address] [place] [address] 01/19/2025 9:30 AM CDT - 01/19/2025 11:00 AM CDT Surgery [facility] Operating Room [address] [place] [address] Elizabeth Martin MD [address] [id number] DILATION AND CURETTAGE/HYSTEROS COPY Scheduled Procedures Name Priority Associated Diagnoses Date/Ti me DILATION AND CURETTAGE/HYSTEROSCOPY Postmenopausal bleeding Thickened endometrium Endometrial polyp 01/19/2025 9:30 AM CDT POLYPECTOMY Postmenopausal bleeding Thickened endometrium Endometrial polyp 01/19/2025 9:30 AM CDT Health Maintenance Due Date Last Done Comments Depression Screening 1970 Hepatitis C Screening 1970 Regular Well Visit/Exam 18-64 1988 Pneumococcal vaccine <65 (1 of 2 - PCV) 1989 Covid-19 Vaccine (7 - Pfizer risk 2023- season) 2024 12/10/2023, 03/30/2023, 05/22/2021, Additional history exists Cervical Cancer Screening 12/15/2025 12/15/2024, Breast Cancer Screening-Mammogram 12/22/2025 12/22/2024, 01/11/2024, 11/30/2022, Additional history exists DTaP/Tdap/Td Vaccine (4 - Td or Tdap) 06/27/2029 06/28/2019, 01/20/2014, 07/07/2007 Colon Cancer Screening-Colonoscopy 10/09/20312021 Hepatitis B Screening Completed 05/03/2009 , 10/02/2008, 07/29/2001 Zoster Vaccine Completed 09/05/2021, 06/25/2021 Influenza Vaccine Completed 12/27/2024, , 03/30/2023, Additional history exists Procedures Procedure Name Priority Date/Time Associated Diagnosis Comments US HAND COMPLETE Schedule Routine, Read Routine (OP Routine) 01/02/2025 10:31 AM CDT Undifferentiated inflammatory arthritis CYCLIC CITRUL PEPTIDE ANTIBODY, IGG Routine 12/27/2024 10:43 AM CDT RHEUMATOID FACTOR Routine 12/27/2024 10: 43 AM CDT CRP (ACUTE PHASE) Routine 12/27/2024 10: 43 AM CDT Undifferentiated inflammatory arthritis care home current use 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 ERYTHROCYTE SEDIMENTATION RATE Routine 12/27/2024 10:43 AM CDT Undifferentiated inflammatory arthritis 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 current use 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 CBC WITH AUTO DIFFERENTIAL Routine 12/27/2024 10:43 AM CDT Undifferentiated inflammatory arthritis care home current use 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 COMPREHENSIVE METABOLIC PANEL Routine 12/27/2024 10:43 AM CDT Undifferentiated inflammatory arthritis care home current use 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 US BREAST RIGHT LIMITED Schedule Routine, Read Routine (OP Routine) 12/22/2024 10:42 AM CDT Breast lipoma DIAGNOSTIC MAMMOGRAM BILATERAL W FELIPE Schedule Routine, Read Routine (OP Routine) 12/22/2024 10:14 AM CDT Breast lipoma SURGICAL PATHOLOGY Routine 12/15/2024 11 :56 AM CDT Postmenopausal bleeding Thickened endometrium HIGH RISK HPV DNA DETECTION WITH GENOTYPING Routine 12/15/2024 11:54 AM CDT Screening for malignant neoplasm of the cervix PAP AND HIGH RISK HPV, REFLEX TO GENOTYPING Routine 12/15/2024 10:58 AM CDT Screening for malignant neoplasm of the cervix CRP (ACUTE PHASE) Routine 11/24/2024 1:3 5 PM CDT Undifferentiated inflammatory arthritis care home current use 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 ERYTHROCYTE SEDIMENTATION RATE Routine 11/24/2024 1:35 PM CDT Undifferentiated inflammatory arthritis 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 current use 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 CBC WITH AUTO DIFFERENTIAL Routine 11/24/2024 1:35 PM CDT Undifferentiated inflammatory arthritis 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 current use 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 COMPREHENSIVE METABOLIC PANEL Routine 11/24/2024 1:35 PM CDT Undifferentiated inflammatory arthritis care home current use 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 US PELVIS W ENDOVAGINAL Schedule Routine, Read Routine (OP Routine) 11/13/2024 11:01 AM CDT Postmenopausal bleeding COLONOSCOPY 10/08/2021 2:42 PM CDT from Last 3 Months or Most Recently Relevant to Health Maintenance Results * US Hand Complete (01/02/2025 10:31 AM CDT) Anatomical Region Laterality Modality Hand N/A Ultrasound us Christa JAY IMG US PROCEDURES Fin al Result * CBC with auto differential (12/27/2024 10:43 AM CDT) WBC 5.1 3.8 - 10.8 Thousand/u L [facility] RBC, POC 4.45 3.80 - 5.10 Million/uL [facility] Hgb 13.7 11.7 - 15.5 g/dL [facility] Hct 40.9 35.0 - 45.0 % [facility] MCV 91.9 80.0 - 100.0 fL [facility] MCH 30.8 27.0 - 33.0 pg [facility] MCHC 33.5 32.0 - 36.0 g/dL [facility] Comment: For adults, a slight decrease in the calculated MCHC value (in the range of 30 to 32 g/dL) is most likely not clinically significant; however, it should be interpreted with caution in correlation with other red cell parameters and the patient's clinical condition. Rdw 13.1 11.0 - 15.0 % [facility] Platelets 215 140 - 400 Thousand/u L [facility] MPV 9.2 7.5 - 12.5 fL [facility] Neutrophils, abs 2,570 1,500 - 7,800 cells/uL [facility] Lymphocytes, abs 1,719 850 - 3,900 cells/uL [facility] Monocyte abs 581 200 - 950 cells/uL [facility] Eosinophils, abs 199 15 - 500 cells/uL [facility] Basophils, abs 31 0 - 200 cells/uL [facility] Neutrophils 50.4 % [facility] Lymphocyte pct 33.7 % [facility] Monocytes 11.4 % [facility] Eosinophils 3.9 % [facility] Basophils 0.6 % [facility] Blood 12/27/2024 10:4 3 AM CDT 12/27/2024 10:44 AM CDT Christa JAY LAB BLOOD ORDERABLES Final Result Performing Organization Address [facility] Co de Phone Number [email or web address] [address] [place] [address] * Cyclic citrul peptide antibody, IgG (12/27/2024 10:43 AM CDT) Pathologist [facility] Cyclic citrullinated peptide ab, IgG <16 UNITS [facility] Comment: Reference Range Negative: <20 Weak Positive: 20-39 Moderate Positive: 40-59 Strong Positive: >59 12/27/2024 10:4 3 AM CDT 12/27/2024 10:44 AM CDT Christa JAY LAB BLOOD ORDERABLES Final Result Performing Organization Address [facility] Co de Phone Number [facility] [address] [place] [address] * Erythrocyte sedimentation rate (12/27/2024 10:43 AM CDT) Pathologist [facility] Erythrocyte sedimentation rate 17 < OR = 30 mm/h [facility] Blood 12/27/2024 10:4 3 AM CDT 12/27/2024 10:44 AM CDT Christa JAY LAB BLOOD ORDERABLES Final Result Performing Organization Address [facility] Co de Phone Number [facility] [address] [place] [address] * Rheumatoid factor (12/27/2024 10:43 AM CDT) Pathologist [facility] Rheumatoid factor, quant <10 <14 IU/mL [facility] 12/27/2024 10:4 3 AM CDT 12/27/2024 10:44 AM CDT Christa JAY LAB BLOOD ORDERABLES Final Result Performing Organization Address [facility] de Phone Number [facility] [address] [place] [address] * CRP (acute phase) (12/27/2024 10:43 AM CDT) Pathologist [facility] C-RP 4.7 <8.0 mg/L [facility] Blood 12/27/2024 10:4 3 AM CDT 12/27/2024 10:44 AM CDT Christa JAY LAB BLOOD ORDERABLES Final Result Performing Organization Address [facility] de Phone Number [facility] [address] [place] [address] * Comprehensive metabolic panel (12/27/2024 10:43 AM CDT) [facility] Glucose 88 65 - 99 mg/dL [facility] Comment: Fasting reference interval BUN 14 7 - 25 mg/dL [facility] Creatinine 0.64 0.50 - 1.03 mg/dL [facility] eGFR 105 > OR = 60 mL/min/1.7 3m2 [facility] BUN/creat ratio SEE NOTE: 6 - 22 (calc) [facility] Comment: Not Reported: BUN and Creatinine are within reference range. Sodium 143 135 - 146 mmol/L [facility] [place] Potassium, pl 4.2 3.5 - 5.3 mmol/L [facility] Chloride 106 98 - 110 mmol/L [facility] CO2 30 20 - 32 mmol/L [facility] Calcium 9.8 8.6 - 10.4 mg/dL [facility] Protein, sr 6.7 6.1 - 8.1 g/dL [facility] Albumin 4.4 3.6 - 5.1 g/dL [facility] GLOBULIN 2.3 1.9 - 3.7 g/dL (calc) [facility] Alb/glob ratio 1.9 1.0 - 2.5 (calc) [facility] Bilirubin, total 0.4 0.2 - 1.2 mg/dL [facility] Alk phos 65 37 - 153 U/L [facility] AST 20 10 - 35 U/L [facility] ALT (SGPT) 29 6 - 29 U/L [facility] Blood 12/27/2024 10:4 3 AM CDT 12/27/2024 10:44 AM CDT us Christa JAY LAB BLOOD ORDERABLES Final Result [facility] [address] [place] [id number] * US Breast Limited right (12/22/2024 10:42 AM CDT) Anatomical Region Laterality Modality Breast Right Ultrasound 12/22/2024 11:0 0 AM CDT Impressions 12/22/2024 11:00 AM CDT There is no mammographic or sonographic evidence of malignancy. Lipoma in the right breast is essentially stable in size. A bilateral screening mammogram is recommended in one year. The results were discussed with the patient. OVERALL FINAL ASSESSMENT: BI-RADS Category 2: Benign. RECOMMENDATION: Annual screening mammography is recommended. Electronically signed by: Demetria Heredia M.D. Narrative 12/22/2024 11:00 AM CDT EXAMINATION: BILATERAL DIGITAL DIAGNOSTIC MAMMOGRAM INCLUDING CAD AND BILATERAL DIGITAL BREAST TOMOSYNTHESIS; RIGHT BREAST SONOGRAM HISTORY: Right breast lipoma COMPARISON: 01/11/2024, 11/30/2022, 09/26/2021, 11/26/2015 TECHNIQUE: Full field digital mammographic views of BOTH breasts were performed, including computer aided detection (CAD) and BILATERAL digital breast tomosynthesis (DBT). Directed ultrasound evaluation of the RIGHT breast was performed. BREAST PARENCHYMAL COMPOSITION: There are scattered areas of fibroglandular density. MAMMOGRAM FINDINGS: No suspicious masses, calcifications or other significant findings are seen in either breast. A benign lymph noted is seen in the upper outer right breast. Further evaluation was obtained with sonography. SONOGRAM FINDINGS: At the 1 o'clock position of the right breast, 15 cm from the nipple, there is an oval well-circumscribed slightly hyperechoic lesion measuring 4.5 x 2.5 x 1.6 cm. There is no internal vascularity. This previously measured 4.9 x 2.4 x 1.2 cm. This lesion is most likely a lipoma. Any change in size is likely related to the measurement technique. us Elizabeth Martin MD IMG MAMMO PROCEDURES Final Result * Diagnostic Mammogram Bilateral W Felipe (12/22/2024 10:14 AM CDT) Anatomical Region Laterality Modality Breast Bilateral Mammography 12/22/2024 11:0 0 AM CDT Impressions 12/22/2024 11:00 AM CDT There is no mammographic or sonographic evidence of malignancy. Lipoma in the right breast is essentially stable in size. A bilateral screening mammogram is recommended in one year. The results were discussed with the patient. OVERALL FINAL ASSESSMENT: BI-RADS Category 2: Benign. RECOMMENDATION: Annual screening mammography is recommended. Electronically signed by: Demetria Heredia M.D. Narrative 12/22/2024 11:00 AM CDT EXAMINATION: BILATERAL DIGITAL DIAGNOSTIC MAMMOGRAM INCLUDING CAD AND BILATERAL DIGITAL BREAST TOMOSYNTHESIS; RIGHT BREAST SONOGRAM HISTORY: Right breast lipoma COMPARISON: 01/11/2024, 11/30/2022, 09/26/2021, 11/26/2015 TECHNIQUE: Full field digital mammographic views of BOTH breasts were performed, including computer aided detection (CAD) and BILATERAL digital breast tomosynthesis (DBT). Directed ultrasound evaluation of the RIGHT breast was performed. BREAST PARENCHYMAL COMPOSITION: There are scattered areas of fibroglandular density. MAMMOGRAM FINDINGS: No suspicious masses, calcifications or other significant findings are seen in either breast. A benign lymph noted is seen in the upper outer right breast. Further evaluation was obtained with sonography. SONOGRAM FINDINGS: At the 1 o'clock position of the right breast, 15 cm from the nipple, there is an oval well-circumscribed slightly hyperechoic lesion measuring 4.5 x 2.5 x 1.6 cm. There is no internal vascularity. This previously measured 4.9 x 2.4 x 1.2 cm. This lesion is most likely a lipoma. Any change in size is likely related to the measurement technique. Elizabeth Martin MD IMG MAMMO PROCEDURES Final Result * Surgical pathology (12/15/2024 11:56 AM CDT) Tissue (Endometrial biopsy) 12/15/2024 11:56 AM CDT 12/18/2024 11:56 AM CDT Narrative PATHOLOGY CH - 12/20/2024 5:33 PM CDT EPIC results best viewed via link to PDF [facility] Department of Pathology [address] [place] [id number] Note to Patients: This report may contain [...] can answer questions and explain the details. Final Report Patient Name: MONICA ROMAN [address]: [address] [place], [place] [address] [address] Gender: F : 1970 (Age: 54) Service: Location: N : [id number] Hospital #: [id number] Patient Type: [facility] SPECIMEN Taken: 12/15/2024 Received: 12/18/2024 Accessioned: 12/18/2024 Reported: 12/20/2024 Physician(s):Elizabeth Martin MD Diagnosis: Uterus, endometrium, biopsy: - Polyp. - Superficial strips of glandular epithelium. Samuel Andersen M.D. Report Electronically Reviewed and Signed Out By Samuel Andersen M.D. 12/20/2024 17:33:43 Specimen(s) Received: A: Endometrial biopsy Microscopic Description: Microscopic examination of the endometrium, examined at multiple levels shows detached superficial strips of glandular epithelium as well as a larger polypoid fragment of glandular epithelium with scattered vessels, compatible with a polyp. There is no evidence of hyperplasia or malignancy. Additional H&E recuts were obtained and show similar features. Clinical History: PMB, thickened endometrium Procedure: EMB Gross Description: The specimen is submitted in a single formalin filled container labeled MONICA ROMAN and endometrial biopsy. It is 1 lai tissue fragment measuring 1 cm and an approximately 0.5 cc aggregate of red-brown mucoid material. All in one cassette. Aileen Ludwig R.N., P.A./Samuel Andersen M.D. REPORT IMAGES AND SCANNED DOCUMENTS, IF INCLUDED, ONLY VIEWABLE IN PDF VERSION OF REPORT The performance characteristics of some immunohistochemical stains, fluorescence in-situ hybridization tests and immunophenotyping by flow cytometry cited in this report (if any) were determined by the Surgical Pathology Department at [facility] as part of an ongoing director software quality assurance program and in compliance with federally mandated regulations drawn from the Clinical Laboratory Improvement Act of 1988 (CLIA '88). Some of these tests rely on the use of analyte specific reagents and are subject to specific labeling requirements by the US Food and Drug Administration. Such diagnostic tests may only be performed in a facility that is certified by the Department of Health and Human Services as a high complexity laboratory under CLIA '88. The FDA has determined that such clearance or approval is not necessary. This test is used for clinical purposes. It should not be regarded as investigational or for research. Nevertheless, federal rules concerning the medical use of analyte specific reagents require that the following disclaimer be attached to the report: This test was developed and its performance characteristics determined by the Surgical Pathology Department [facility]. It has not been cleared or approved by the U. S. Food and Drug Administration. Note for decalcified specimens: This assay has not been validated on decalcified tissues. Results should be interpreted with caution given the possibility of false negativity on decalcified specimens Elizabeth Martin MD LAB PATHOLOGY ORDERAB LES Final Result PATHOLOGY [address] [place] [address] * High Risk HPV DNA Detection with Genotyping (Molecular component) (12/15/2024 11:54 AM CDT) HPV HR 16 Not Detected Not Detected [facility] Comment:Testing performed by : [facility], [address] [place]., [address] HPV HR 18 Not Detected Not Detected [facility] Comment:Testing performed by : [facility], [address] [place]., [address] HPV HR Non 16/18 Not Detected Not Detected [facility] Comment: Interpretive Data Nucleic acid amplification for detection of high-risk Human Papilloma virus (HPV) is performed by the Carina Radha 6800 HPV test. This assay specifically detects HPV-16 and HPV-18 genotypes. The following HPV genotypes are detected as high-risk HPV: HPV-31, 33, 35, ,39, 45, 51, 52, 56, 58, 59, 66, and 68. This assay has been approved by the [place] Food and Drug Administration for detection of HPV in cervical specimens collected by a physician using an endocervical brush/spatula or cervical broom and placed in the ThinPrep Pap Test PreservCyt collection containers. The performance characteristics of this test have been verified by the [facility] Infectious Disease laboratory. Correlate with separately reported cytology results, as applicable. Interpretive data last revised 22 Testing performed by: [facility], [address] [place]., [address] Endocervical 12/15/2024 11:5 4 AM CDT 12/18/2024 12:47 PM CDT Narrative CERNER - 12/18/2024 6:02 PM CDT Clinical history and diagnosis->DX Z12.4 Testing type->Screening Last menstrual period (date if known)->N/A Menstrual status->Postmenopausal Other clinical conditions->Abnormal bleeding us Elizabeth Martin MD LAB BODY FLUIDS AND S TOOLS ORDERABLES Final Result [address] Department [place] [address] [facility] * Pap and High Risk HPV and Genotyping (Cytology Component) (12/15/2024 10:58 AM CDT) Thin prep (Pap test) 12/15/2024 10:58 AM CDT 12/15/2024 10:58 AM CDT Narrative PATHOLOGY - 12/20/2024 2:57 PM CDT [facility] Department of Pathology [address] [place] [address] Final Report with Addendum Note to Patients: This report may contain [...] can answer questions and explain the details. Patient Name: MONICA ROMAN Address: [address] [place] [address], [place] [address] Gender: F : 1970 (Age: 54) Service: Location: [facility] #: [id number] Patient Type: [facility] SPECIMEN Taken: 12/15/2024 Received: 12/15/2024 Accessioned:: 12/18/2024 Reported: 12/20/2024 Physician(s): MD Elizabeth Tim MD Diagnosis: SOURCE OF SPECIMEN SCREENING THIN PREP IMAGED PAP w/ HPV: STATEMENT OF ADEQUACY - Specimen satisfactory for interpretation; indeterminate endocervical component due to marked atrophy GENERAL CATEGORIZATION: - Negative for intraepithelial lesion or malignancy INTERPRETATION: - Atrophic smear pattern ANTONY Moralez(ASCP)ANTONY Paez(ASCP) Report Electronically Reviewed and Signed Out By ANTONY Paez(ASCP) 12/20/2024 14:57:01Addenda: HPV Test Interpretation (Normal-Negative for High Risk HPV) HPV HR 16- Not detected HPV HR 18-Not detected HPV HR non 16/18- Not detected Interpretive Data Nucleic acid amplification for detection of high-risk Human Papilloma virus (HPV) is performed by the Carina Radha 6800 HPV test. This assay specifically detects HPV- 16 and HPV-18 genotypes. The following HPV genotypes are detected as high-risk HPV: HPV-31, 33, 35, 39, 45, 51, 52, 56, 58, 59, 66, and 68. This assay has been approved by the [place] Food and Drug Administration for detection of HPV in cervical specimens collected by a physician using an endocervical brush/spatula or cervical broom and placed in the ThinPrep Pap Test PreservCyt collection containers. The performance characteristics of this test have been verified by the [facility] Molecular Infectious Disease laboratory. Correlate with reported cytology results, as applicable. Interpretive data last revised 22 ANTONY Moraelz(ASCP)Report Electronically Reviewed and Signed Out By SHAYY MoralezASCP) 12/19/2024 11:14:57 Specimen(s) Received: A: SCREENING THIN PREP IMAGED PAP w/ HPV Clinical History: Menstrual History: Post-menopausal Abnormal Bleeding The Pap test is a screening test used to aid in the detection of cervical cancer and its precursors. It should not be the sole means by which malignant and premalignant lesions are diagnosed. Both false negative and false positive results may occur. It also has poor sensitivity for the detection of endometrial lesions and should not be used to evaluate suspected endometrial abnormalities. For these reasons it is most important to obtain Pap tests at regular intervals. The performance characteristics of some immunohistochemical stains, fluorescence in-situ hybridization tests and immunophenotyping by flow cytometry cited in this report (if any) were determined by the Surgical Pathology Department at [facility] as part of an ongoing director software quality assurance program and in compliance with federally mandated regulations drawn from the Clinical Laboratory Improvement Act of 1988 (CLIA '88). Some of these tests rely on the use of analyte specific reagents and are subject to specific labeling requirements by the US Food and Drug Administration. Such diagnostic tests may only be performed in a facility that is certified by the Department of Health and Human Services as a high complexity laboratory under CLIA '88. The FDA has determined that such clearance or approval is not necessary. This test is used for clinical purposes. It should not be regarded as investigational or for research. Nevertheless, federal rules concerning the medical use of analyte specific reagents require that the following disclaimer be attached to the report: This test was developed and its performance characteristics determined by the Surgical Pathology Department [facility]. It has not been cleared or approved by the U. S. Food and Drug Administration. Elizabeth Martin MD LAB CYTOLOGY ORDERABL ES Final Result PATHOLOGY [address] [place] [address] * CBC with auto differential (11/24/2024 1:35 PM CDT) WBC 8.5 3.8 - 10.8 Thousand/u L [facility] RBC, POC 4.65 3.80 - 5.10 Million/uL [facility] Hgb 14.2 11.7 - 15.5 g/dL [facility] Hct 43.0 35.0 - 45.0 % [facility] MCV 92.5 80.0 - 100.0 fL [facility] MCH 30.5 27.0 - 33.0 pg [facility] MCHC 33.0 32.0 - 36.0 g/dL [facility] Comment: For adults, a slight decrease in the calculated MCHC value (in the range of 30 to 32 g/dL) is most likely not clinically significant; however, it should be interpreted with caution in correlation with other red cell parameters and the patient's clinical condition. Rdw 13.3 11.0 - 15.0 % [facility] Platelets 200 140 - 400 Thousand/u L [facility] MPV 9.5 7.5 - 12.5 fL [facility] Neutrophils, abs 5,423 1,500 - 7,800 cells/uL [facility] Lymphocytes, abs 2,142 850 - 3,900 cells/uL [facility] Monocyte abs 723 200 - 950 cells/uL [facility] Eosinophils, abs 179 15 - 500 cells/uL [facility] Basophils, abs 34 0 - 200 cells/uL [facility] Neutrophils 63.8 % [facility] Lymphocyte pct 25.2 % [facility] Monocytes 8.5 % [facility] Eosinophils 2.1 % [facility] Basophils 0.4 % [facility] Blood 11/24/2024 1:35 PM CDT 11/24/2024 1:35 PM CDT Christa JAY LAB BLOOD ORDERABLES Final Result Performing Organization Address [facility] Co de Phone Number [facility] [address] [place] [address] * Erythrocyte sedimentation rate (11/24/2024 1:35 PM CDT) Pathologist [facility] Erythrocyte sedimentation rate 9 < OR = 30 mm/h [facility] Blood 11/24/2024 1:35 PM CDT 11/24/2024 1:35 PM CDT Christa JAY LAB BLOOD ORDERABLES Final Result Performing Organization Address City/[facility]/ZIP Co de Phone Number [facility] [address] [place] [address] * (ABNORMAL) CRP (acute phase) (11/24/2024 1:35 PM CDT) Pathologist [facility] C-RP 13.1(H) <8.0 mg/L [facility] Blood 11/24/2024 1:35 PM CDT 11/24/2024 1:35 PM CDT Christa JAY LAB BLOOD ORDERABLES Final Result [facility] [address] [address] [facility] [place] [address] * Comprehensive metabolic panel (11/24/2024 1:35 PM CDT) [facility] Glucose 88 65 - 99 mg/dL [facility] Comment: Fasting reference interval BUN 18 7 - 25 mg/dL [facility] Creatinine 0.63 0.50 - 1.03 mg/dL [facility] eGFR 105 > OR = 60 mL/min/1.7 3m2 [facility] BUN/creat ratio SEE NOTE: 6 - 22 (calc) [facility] Comment: Not Reported: BUN and Creatinine are within reference range. Sodium 140 135 - 146 mmol/L [facility] Potassium, pl 3.8 3.5 - 5.3 mmol/L [facility] Chloride 103 98 - 110 mmol/L [facility] CO2 29 20 - 32 mmol/L [facility] Calcium 9.3 8.6 - 10.4 mg/dL [facility] Protein, sr 6.8 6.1 - 8.1 g/dL [facility] Albumin 4.3 3.6 - 5.1 g/dL [facility] GLOBULIN 2.5 1.9 - 3.7 g/dL (calc) [facility] Alb/glob ratio 1.7 1.0 - 2.5 (calc) [facility] Bilirubin, total 0.6 0.2 - 1.2 mg/dL [facility] Alk phos 63 37 - 153 U/L [facility] AST 16 10 - 35 U/L [facility] ALT (SGPT) 19 6 - 29 U/L [facility] Blood 11/24/2024 1:35 PM CDT 11/24/2024 1:35 PM CDT us Christa JAY LAB BLOOD ORDERABLES Final Result [facility] [address] [address] [facility] [place] [address] * US Pelvis W Endovaginal (11/13/2024 11:01 AM CDT) Anatomical Region Laterality Modality Pelvis N/A Ultrasound 11/18/2024 7:48 AM CDT Narrative 11/18/2024 7:50 AM CDT EXAM DESCRIPTION: US PELVIS W ENDOVAGINAL REASON FOR STUDY: N95.0, postmenopausal for 4 years, bleeding for 2 days. TECHNIQUE: Grayscale ultrasound of the pelvic contents was performed with transabdominal and transvaginal transducer. COMPARISON: None. FINDINGS: UTERUS: The uterus is anteverted. The uterus is homogenous in echotexture and measures 7.4 x 2.9 x 2.5 cm. Nabothian cyst noted. ENDOMETRIUM: The endometrium measures 0.5 cm in thickness. RIGHT OVARY: The right ovary measures 1.5 x 1.9 x 2.0 cm. There is documentation of color Doppler flow in the right ovary. The right ovary appears unremarkable. LEFT OVARY: The left ovary could not be demonstrated for assessment, obscured due to shadowing bowel gas. PELVIC FLUID: There is no evidence of free fluid in the pelvis. OTHER: No other significant findings. IMPRESSION: 1. No evidence of an acute abnormality. 2. Endometrium is 0.5 cm which is within normal limits. 3. Left ovary could not be demonstrated for assessment. THIS IS AN ELECTRONICALLY VERIFIED FINAL REPORT 11/18/2024 7:50 AM - Electronically signed by Lucas Alvarado M.D. T: Report ID: [id number] Reading Location: [id number] Procedure Note Lucas Alvarado MD - 11/18/2024 EXAM DESCRIPTION: US PELVIS W ENDOVAGINAL REASON FOR STUDY: N95.0, postmenopausal for 4 years, bleeding for 2days. TECHNIQUE: Grayscale ultrasound of the pelvic contents was performed with transabdominal and transvaginal transducer. COMPARISON: None. FINDINGS: UTERUS: The uterus is anteverted. The uterus is homogenousin echotexture and measures 7.4 x 2.9 x 2.5 cm. Nabothian cyst noted. ENDOMETRIUM: The endometrium measures 0.5 cm in thickness. RIGHT OVARY: The right ovary measures 1.5 x 1.9 x 2.0 cm. There is documentation of color Doppler flow in the right ovary. The right ovary appears unremarkable. LEFT OVARY: The left ovary could not be demonstrated for assessment,obscured due to shadowing bowel gas. PELVIC FLUID: There is no evidence of free fluid in the pelvis. OTHER: No other significant findings. IMPRESSION: 1. No evidence of an acute abnormality. 2. Endometrium is 0.5 cm which is within normal limits. 3. Left ovary could not be demonstrated for assessment. THIS IS AN ELECTRONICALLY VERIFIED FINAL REPORT 11/18/2024 7:50 AM - Electronically signed by Lucas Alvarado M.D. T: Report ID: [id number] Reading Location: [place] [address] us Cynthia Carroll NP IMG US PROCEDURES Final R esult * COLONOSCOPY (10/08/2021 2:42 PM CDT) Anatomical Region Laterality Modality Other Narrative Procedure Note Bill Goodman MD - 10/08/2021 2:42 PM CDT GI ENDOSCOPY [facility] Patient Name: Moncia Roman Procedure Date: 10/08/2021 2:42 PM Date of : 1970 Admit Type: Outpatient Age: 51 Gender: Female Attending MD: Katie Powers Room: [facility] ENDOSCOPY ROOM 3 Note Status: Finalized Procedure: [...] passed under direct vision.The CF HQ [id number] endoscope was introducedthrough the anus and advanced to the cecum, identified by appendiceal orifice and ileocecal valve. The colonoscopy was performed without difficulty. The patient tolerated the procedure well. The qualityof the bowel preparation was evaluated using the BBPS ([place] Bowel Preparation Scale) with scores of:Right Colon [...] colonoscopy today. After the pathology result ofthe polyp(s) is reviewed, the doctor who performedyour colonoscopy will recommend follow-up colonoscopy to you based on current guidelines by gastroenterology societies: - If only small hyperplastic polyps from the rectumor sigmoid were removed, repeat the colonoscopy in 10 years. - If 1 or 2 polyps less than 1 cm in size are adenomas, repeat the colonoscopy in 7 years. - If 3 or more polyps are adenomas, repeat the colonoscopy in 3 years. - If there are 10 or more adenomas, repeat the colonoscopy in 1 year. - If any polyp is 10 mm or greater in size, has villous histology or high grade dysplasia,repeat the colonoscopy in 3 years. - If a [...] On: 10/08/2021 2:42 PM Recognized by the [place] [employer] for promoting quality in endoscopy Bill Goodman MD ENDOSCOPY PROCEDUR ES Final Result from Last 3 Months or Most Recently Relevant to Health Maintenance Insurance Product [id number] [facility] CLAIMS 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 Start Date End Date Kevin Bowles MD [address] [place] [address] [place] [address] PCP - General Family Medicine 02/02/24 Eric Crowder MD [address] [facility] [address] [place] [address] Rheumatology 01/18/17 Maico Martin MD [address] [place] [address] Consulting Physician Neurology 11/09/22 Herminia Kumar MD [address] [facility] [address] [place] [address] Consulting Physician General Surgery 01/17/24 Kevin Bowles MD [address] [address] [place] [address] Referring Physician Family Medicine 01/17/24 Naila Villegas, OT Occupational Therapist Occupational Therapy 07/25/24 Janelle Savage COTA Hr Administrative Assistant Occupational Therapy 08/09/24 Janelle Beyer, OT Occupational Therapist Occupational Therapy 08/30/24
== END 2025-01-08 17:33 | disposition home or self-care (01) ==
PROVIDERS: PCP Family Medicine; Visit Provider Nurse Practitioner Family
DX: M25.551 Pain in right hip (principal)
CPT/HCPCS: 73502